=== PATIENT | female | born 1935 | race Caucasian/White ===

== ENCOUNTER 2024-05-01 08:45 | Outpatient (AMB) | payer OTHER, SELFPAY ==
--- NOTE | 2024-05-01 08:56 | MHC.OFFVIS ---
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 She is starting PT soon. She is having right groin pain when not using walker. She had pain last night and during the morning. Takes tylenol 650mg PRn pain. Dr. Arita Oracle Business Intelligence Developer started prednisone 5mg daily in December 2023. Xeljanz was very expansive for patient and she did not started. She has new insurance. PCP prescribed prednisone 20 mg for 7 days with last dose today to help alleviate hip pain. She has found that it is relieved all her pain. No new joint swelling. [facility] Medical History (Updated 05/01/24 @ 12:17 by Karlo Jay MD) Endometriosis Vitamin B 12 deficiency Restless leg syndrome Multiple pulmonary nodules Lymphopenia Hypertension Hyperlipidemia Surgical History (Updated 05/01/24 @ 09:33 by Abigail Brown CMA) History of bunionectomy Family History (Updated 05/01/24 @ 09:34 by Abigail Brown CMA) Mother Heart disease Other Pancreatic cancer Physical Exam Vital Signs: Last Vital Signs Pulse 79 05/01/24 09:06 BP 160/76 H 05/01/24 09:20 Pulse Ox 94 05/01/24 09:06 Oxygen Delivery Method Room Air 05/01/24 09:06 BMI result Body Mass Index 29.4 Const Other: General: Comfortable CVS: RRR Respiratory: clear to auscultation bilaterally. Good respiratory effort Skin: No lesions seen MSK: No tenderness of any joints. [place]berden nodes present. Good range of motion of upper extremities. Tender to palpate right groin region. Good external rotation of bilateral hips. Knee flexion 110 degrees bilateral. No MTP tenderness. Assessment & Plan Assessment & Plan (1) Rheumatoid arthritis: Comment: Seropositive (anti CCP antibody 223 and rheumatoid factor 95) polyarthritis involving hands, shoulders and knees. History of CKD. She is controlled on prednisone 5 mg daily and hydroxychloroquine 200 mg daily. She requires steroid sparing agent. We discussed adding on DMARD therapy Xeljanz 5 mg daily. Discussed side effects, benefits and drug monitoring. It was previously approved where she had a high co-pay. She now has a new insurance. I will process Xeljanz prescription after lab results are back. If she continues to have a high co-pay with new insurance, she can apply for financial assistance program for Xeljanz. Triggered by COVID-19 infection 09/2021. She was previously treated with double therapy HCQ and MTX. 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 She previously required bilateral knee cortisone injections and left wrist cortisone injection (12/22/2021). Prednisone 5 mg daily started ATC 12/2023 Dr. Arita. Code(s): M06.9 - Rheumatoid arthritis, unspecified Category: Medical Plan: She will decrease prednisone to 5 mg daily for 1 week starting tomorrow then decrease to 2.5 mg daily for 1 week then discontinue Labs for drug monitoring on high-risk medication ordered Continue hydroxychloroquine 200 mg daily. I am requesting last eye exam for hydroxychloroquine surveillance exam Requesting [facility] reports [facility] and bilateral knees After lab results are back, I will start PA process for Xeljanz 5 mg daily history of CKD Return to clinic in 3 months (2) Other staff occupational therapist (current) drug therapy: Code(s): Z79.899 - Other staff occupational therapist (current) drug therapy Category: Medical Plan: See above (3) Right hip pain: Comment: She has localized pain to right groin region suggesting hip pathology. She had an x-ray recently of right hip but I do not have results. We discussed conservative management. Code(s): M25.551 - Pain in right hip Category: Medical Plan: Take Tylenol 650 mg 1-2 tablets twice a day Apply heat or ice to affected area twice a day She will start physical therapy for hip strengthening soon She will continue to use walker as an assistive aid when ambulating Requesting right hip x-ray report from [facility] Return to clinic in 3 months Orders: Orders Complete Blood Count Auto Diff Today Z79.60 - skilled nursing (current) use of unspecified immunomodulators and immunosuppressants Creatinine Today Z79.60 - screw driver operator (current) use of unspecified immunomodulators and immunosuppressants Hepatitis B,C Profile Today M06.9 - Rheumatoid arthritis, unspecified, Z79.899 - Other staff occupational therapist (current) drug therapy Alanine Aminotransferase Today Z79.60 - screw driver operator (current) use of unspecified immunomodulators and immunosuppressants Aspartate Amino Transferase Today Z79.60 - screw driver operator (current) use of unspecified immunomodulators and immunosuppressants Erythrocyte Sedimentation Rate Today M06.9 - Rheumatoid arthritis, unspecified, Z79.899 - Other detention (current) drug therapy C Reactive Protein Today M06.9 - Rheumatoid arthritis, unspecified, Z79.899 - Other staff occupational therapist (current) drug therapy T Spot TB Today M06.9 - Rheumatoid arthritis, unspecified, Z79.899 - Other detention (current) drug therapy Lipid Panel Today M06.9 - Rheumatoid arthritis, unspecified Coding Level of Care Code Est Pt Level 4 (32856) Complex EM visit Add On G2211 Diagnoses Rheumatoid arthritis M06.9 Other detention (current) drug therapy Z79.899 Right hip pain M25.551
[2024-05-01 09:06] VITALS: PULSE 79; O2SAT 94; BMI 29.4
--- OUTSIDE RECORDS SUMMARY | 2024-05-01 09:13 | XMS_ITS ---
Author Organization [employer] Address [address] [place] [address] Care Team Providers Care Bookbinder Chief Name Role Phone Hernandez CERVANTES, Bellamy Primary Care Provider [phone] Allergies Allergen (clinical drug ingredient) Drug/Non Drug Allergy documented on EMR Reaction Allergy Type Onset Date Status Latex Latex Unknown Allergy 03/02/2022 Active Substance with sulfonamide structure and antibacterial mechanism of action (substance) Sulfa Antibiotics Unknown Drug Allergy Active Results Component Value Reference Range Notes Comprehensive Metabolic Pane l 14 (CMP) Reviewed date:04/28/2024 01:46:25 PM Interpretation: Performing Lab:[facility], [address] [place] [id number], Phone - [phone], Director - Shalom Notes/Report: Glucose 67 70-99 [...] 0-40 IU/L ALT (SGPT) 24 0-32 IU/L Lipid Panel With Total Rayne sterol/HDL Ratio Reviewed date:04/28/2024 01:46:25 PM Interpretation: Performing Lab:[facility], [address] [place] [address] [id number], Phone - [phone], Director - Shalom Notes/Report: Cholesterol, Total 125 100-199 mg/dL Triglycerides 92 0-149 mg/dL HDL Cholesterol 52 >39 mg/dL VLDL Cholesterol Ayo 17 5-40 mg/dL LDL Chol Calc ([facility]) 56 0-99 mg/dL T. Chol/HDL Ratio 2.4 0.0-4.4 ratio Men Women 2X Avg.Risk 9.6 7.1 Avg.Risk 5.0 4.4 3X Avg.Risk 23.4 11.0 T. Chol/HDL Ratio 1/2 Avg.Risk 3.4 3.3 Complete Blood Count with Di fferential/Platelet (CBC) Reviewed date:04/28/2024 01:46:24 PM Interpretation: Performing Lab:[facility], [address] [place] [id number], Phone - [phone], Director - MDNoey Notes/Report: WBC 6.9 3.4-10.8 x10E3/uL RBC 3.67 [...] % Immature Grans (Abs) 0.0 0.0-0.1 x10E3/uL REASON FOR VISIT 4 wk f/u, This [...] tablets p o daily for 90 days /2 tab qd Active Olmesartan Medoxomil 20 MG 0.5 tablet Or ally once daily for 90 days /2 tablet 07/16/2022 Active Tylenol PRN Active Ipratropium-Albuterol 0.5-2.5 (3) MG/3ML 3 mL as needed Inhalation every 6 hrs Active Vasculera - as directed Orally 630mg once daily Active Vitamin D (Ergocalciferol) 1.25 MG (21839 UT) 1 capsule Orally weekly for 90 [...] Active Encounters Encounter Location Date Provider Diagnosis [facility] [address] [place], [place] [id number] 04/05/2024 Paulo Ng Chronic obstructive pulmonary disease, unspecified J44.9 ; Essential (primary) hypertension I10 ; Rheumatoid arthritis, unspecified M06.9 ; 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-[id number]- Continue to follow with Plant Control Operator. 02/27 weaning down on predisone right now doing 04/05/2024 Essential (primary) hypertension (ICD-10 - I10) [facility]-[id number]- Continue medications and home monitoring as directed. [...] factor present (ICD-10 - M06.9) 04/05/2024 Other assisted (current) drug therapy (ICD-10 - Z79.899) Plan Of Treatment Treatment Notes Assessment Notes Chronic obstructive pulmonar y disease, unspecified Continue to follow with Plant Control Operator. 02/27 weaning down on predisone right now [...] Next Appt Details Follow Up: prn, Reason: Provider Name:Paulo Ng , 06/22/2024 02:40:00 PM, [address] [facility] [address], [place], [place], [phone], Progress Notes * Gilda CHAN ADOB:1935 (88 yo F)Acc No.[id number]:04/05/2024 Patient:?Gilda CHAN Provider:?Paulo Ng MD :1935???Age:88 Y???Sex:Female D ate:04/05/2024 Address:[address] [place], [place] [id number] Subjective: * Chief Complaints: * ???4 wk f/uThis is a [facility]Tele[facility]icine visit conducted using synchronous audio . The patient's verbal consent was obtained for this visit. Participants & Location: Patient located at home and Provider located in clinic. * HPI: ???General:?The patient is a 88-year-old female who is here today to follow-up on her chronic medical issues. She reports she is doing okay today. She is otherwise without new concerns. The appointment was performed via telephonic audio only communication consent was obtained from the patient she was in her home I was in my office.? 13 minutes. * ROS:?Complete Review of Systems:?Constitutional:?Denies fever, chills, fatigue, unintentional weight loss.?Cardiovascular:?Denies chest pain, palpitations, lower extremity edema.?Pulmonary:?Denies shortness of breath, cough.?Gastrointestinal:?Denies abdominal pain, nausea, vomiting, diarrhea, constipation.? * Medical History:? * Surgical History:?Colonoscop y In 01/26/2012 * Hospitalization/Major Diagno stic Procedure:?Cough, COPD and pneumonia 05/2022Multifocal pneumonia 2023 * Family History:?Mother: Prim venu malignant neoplasm of pancreas .? * Medications:?TakingAlbuterol Sulfate (2.5 MG/3ML) 0.083% Nebulization Solution 3 [...] 630mg once dailyVitamin D (Ergocalciferol) 1.25 MG (55045 UT) Capsule 1 capsule Orally weekly Taking [...] Orally once daily , Notes to Pharmacist: 1/2 tabletTaking predniSONE 5 MG Tablet 1 tablet [...] once dailyTaking Vitamin D (Ergocalciferol) 1.25 MG (11116 UT) Capsule 1 capsule Orally weekly Not-TakingpredniSONE 10 MG (21) Tablet Therapy Pack 1 tablet Orally Once a day Medication List reviewed and reconciled with the patientNot-Taking predniSONE 10 MG (21) Tablet Therapy Pack 1 tablet Orally Once a day Medication List reviewed and reconciled with the patient * Allergies:?Latex: Allergy - Onset Date 03/02/2022ulfa Antibiotics: Allergyyes[Allergies Verified] * Implants:? Objective: * Vitals:? Past Vitals:* 02/28/2024 BP:138/72mm Hg, RR: Not Take n - Declined by Patient, Pulse:67/min, Ht:60in, Wt: Not Taken - Declined by Patient, Oxygen Sat:93%, Pain Scale:01-10 * 01/24/2024 BP:138/62mm Hg, RR: Not Take n - Declined by Patient, Pulse:72/min, Temp: Not Taken - Declined by Patient, Ht:60in, Wt: Not Taken - Declined by Patient, Oxygen Sat:93%, Pain Scale:71-10 * 01/09/2024 BP:126/67mm Hg, RR: Not Take n - Declined by Patient, Pulse:77/min, Temp: Not Taken - Declined by Patient, Ht:60in, Wt: Not Taken - Declined by Patient, Oxygen Sat: Not Taken - Declined by Patient, Pain Scale:01-10 * 11/23/2023 BP:138/65mm Hg, RR:16/min, P ulse:62/min, [...] - Declined by Patient, Pain Scale:01-10 * ???Past Orders: ???Lab:Comprehensive Metabol ic Panel 14 (CMP) (Order Date - 01/19/2023) (Collection Date & Time - 09/29/2023 08:06 AM) ? Value Reference Range ?Bilirubin, Total 0.2 0.0 -1.2 - mg/dL ?Glucose 80 70-99 - mg/d L ?ALT (SGPT) 22 0-32 - IU /L ?Alkaline Phosphatase 61 44-121 - IU/L ?Globulin, Total 2.3 1.5- 4.5 - g/dL ?Albumin 3.9 3.7-4.7 - g/ dL ?Protein, Total 6.2 6.0-8 .5 - g/dL ?Carbon Dioxide, Total 24 20-29 - mmol/L ?Chloride 103 96-106 - mm ol/L ?Potassium 4.3 3.5-5.2 - mmol/L ?Sodium 140 134-144 - mmo l/L ?BUN/Creatinine Ratio 21 12-28 - ?Creatinine 1.04 H 0.57-1.00 - mg/dL ?Calcium 9.5 8.7-10.3 - m g/dL ?BUN 22 8-27 - mg/dL ?AST (SGOT) 19 0-40 - IU /L ?eGFR 52 L >59 - mL/min/1. 73 * Examination: ???General Examination: ?Psych:?does not appear depressed,? normal affect..? Assessment: * Assessment: 1.?Chronic obstructive pulmo nary disease, unspecified - J44.9 (Primary)???Notes :[facility]-[id number]???2.?Essential (primary) hypertension - I10???Notes :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 Plan: * Treatment: 2.?Essential (primary) hyper tension? Notes: Continue medications and home monitoring as directed. Continue low sodium diet with goal of <2g per day. Avoid stress. Avoid adding salt to food. Enjoy regular exercise like walking at least 30 minutes a day, five days a week. ?? 3.?Rheumatoid arthritis, uns pecified? Notes: Rheum discontinued methotrexate due to increasing Cr. Seeing rheum in 2 days to discuss other treatment options. ?? 4.?Immunodeficiency due to c onditions classified elsewhere? Notes: Due to COPD.?? 5.?Other assisted (current) drug therapy?LAB: Complete Blood Count with Differential/Platelet (CBC) ?LAB: Lipid Panel With Total Cholesterol/HDL Ratio ?LAB: Comprehensive Metabolic Panel 14 (CMP) * Procedure Codes:?1159F Medic ation list [id number] Medication Review * Preventive Medicine:? ??Handouts :?Patient Handouts:?THE FOLLOWING HANDOUTS WERE PROVIDED:?Visit summary ?THE ABOVE HANDOUTS WERE PROVIDED BY:?Farzad Gaona 04/05/2024 08:29:28 AM EST >.?HANDOUTS REVIEWED WITH:?patient.?METHOD USED TO DEMONSTRATE UNDERSTANDING: ?verbalized understanding.?UNDERSTANDING OF HANDOUT WAS DEMONSTRATED?Farzad Gaona 04/05/2024 08:29:33 AM EST >.? * Follow Up:?prn * * OR OF OSTEOPATHY Sign off status: Completed true * Provider:?Paulo Ng MD Date:?04/05 Generated for Phani elkins/Marcus/eTransmitting on:?05/01/2024 08:12 AM DOCTOR OF OSTEOPATHY History and Physical Notes * Examination Category Sub-Category Detail Notes General Examination Psych: does not dawson ear depressed, normal affect.
--- OUTSIDE RECORDS SUMMARY | 2024-05-01 09:14 | XMS_ITS | Data Portability ---
Author Organization [place] [facility] [employer], OFFICE Address [id number] [place] [address] Care Team Providers Care Application Spec Name Role Phone RAJIV RED Primary Care Provider [phone] Assessment No assessment recorded. Plan of Treatment Reminders Order Date Submit Date Provider Last Modified By Organization Details Last Modified Time Details Appointments None recorded . Lab hemoglob in A1C, fingerst ick 2022 023 JONNATHAN In-House Results, For Internal Use Only, Do Not Delete/merge, [id number] 3 12:20:33 CMP, serum or plasma 2021 022 [email or web address] [facility], [address] [facility], [address], [place], [address], 2 15:02:05 CBC w/ auto diff 2021 022 [email or web address], [address] [facility], [address], [place], [address], 2 15:02:05 lipid panel, serum 2021 022 [email or web address], [address] [facility], [address], [place], [address], 2 15:02:05 Referral pulmonol ogist referral 2022 023 debra Not available 13:09:23 Procedures None recorded . Surgeries None recorded . Imaging XR, knee, 3 view 2021 022 [email or web address], [address], [place], [address], 3 07:19:05 XR, knee, 3 view 2021 022 [email or web address] [facility], [address], [place], [address], 3 07:19:05 Medication Orders cyanocob alamin (vit B-12) 1,000 mcg/mL injectio n solution 2022 023 Not available 3 12:46:56 famotidi ne 20 mg tablet 2022 023 [facility], [address] [place], [address], 3 14:02:57 cyanocob alamin (vit B-12) 1,000 mcg/mL injectio n solution 2022 023 [email or web address] Not available 3 16:51:19 cyanocob alamin (vit B-12) 1,000 mcg/mL injectio n solution 2022 023 Not available 15:02:14 Patient TargetsNo targets recorded. Patient Instructions Encounter Date Encounter Id Patient Instructions Last Modified By Organization Details Last Modified Time 03/02/2022 [id number] 30 min total veronica e of encounter including face to face and non face to face time spent: Preparing to see patient Obtaining and reviewing separately obtained history Performing medically appropriate examination or evaluation Counseling and educating patient/family/car egiver Ordering medications, tests, or procedures Referring and communication with other health career services assistant Documenting clinical information in the medical record Independently interpreting and communicating results to patient/caregiver Care coordination Discussed treatment plan with patient. The patient verbalized understanding and agrees with plan and follow up. There are no other questions and concerns at this time. f/u scheduled vascular surgeon consult [id number] vascular surgery varicose veins conservative treatment [email or web address] Not available 03/02/2022 08:25:02 05/27/2022 [id number] 30 min total veronica e of encounter including face to face and non face to face time spent: Preparing to see patient Obtaining and reviewing separately obtained history Performing medically appropriate examination or evaluation Counseling and educating patient/family/car egiver Ordering medications, tests, or procedures Referring and communication with other health career services assistant Documenting clinical information in the medical record Independently interpreting and communicating results to patient/caregiver Care coordination Discussed treatment plan with patient. The patient verbalized understanding and agrees with plan and follow up. There are no other questions and concerns at this time. f/u scheduled Discussed all CBC w/ auto diff [id number] 6.2 11.3 WBC 6.2 RBC 4.03 hemoglobin 11.3 hematocrit 33.8 below low normal MCV 84 MCH 28.0 MCHC 33.4 RDW 13.5 platelets 321 neutrophils 48 lymphs 39 monocytes 11 eos 1 basos 1 immature cells switchman supervisor neutrophils (absolute) 3.0 lymphs (absolute) 2.4 monocytes(absolute ) 0.7 eos (absolute) 0.1 baso (absolute) 0.0 immature granulocytes 0 immature grans (abs) 0.0 NRBC switchman supervisor hematology comments: switchman supervisor lipid panel, serum [id number] 139 49 68 127 cholesterol, total 139 triglycerides 127 HDL cholesterol 49 VLDL cholesterol cristina 22 LDL chol calc (nih) 68 comment: switchman supervisor CMP, serum or plasma [id number] 71 1.13 glucose 71 BUN 23 creatinine 1.13 above high normal eGFR 47 below low normal BUN/creatinine ratio 20 sodium 139 potassium 4.6 chloride 102 carbon dioxide, total 26 calcium 9.3 protein, total 6.3 albumin 3.7 globulin, total 2.6 A/G ratio 1.4 bilirubin, total 0.2 alkaline phosphatase 47 AST (SGOT) 18 ALT (SGPT) 23 CMP, serum or plasma [id number] lisandro ann CMP14 default comment lipid panel, serum [id number] lisandro ann [address] default comment XR, knee, 3 [id number] IMPRESSION: 1.No acute osseous abnormality. 2.Moderate medial patellofemoral compartment osteoarthritis If there are persistent symptoms, consider additional imaging such as knee MRI to assess for internal derangement. 03/05/2022 Re-post to PACS Electronically Signed By: Wilfrid Robertson MD XR, knee, 3 [id number] XR, knee, 3 [id number] No acute osseous abnormality. Moderate medial patellofemoral compartment osteoarthritis. XR, knee, 3 view Not available 05/27/2022 15:00:17 06/10/2022 [id number] mini-cog assessment* [email or web address] Not available 06/25/2022 15:25:02 low calorie diet Not available 06/10/2022 14:02:51 low sodium diet (2,000 milligram): care instructions Not available 06/10/2022 14:02:51 30 min total veronica e of encounter including face to face and non face to face time spent: Preparing to see patient Obtaining and reviewing separately obtained history Performing medically appropriate examination or evaluation Counseling and educating patient/family/car egiver Ordering medications, tests, or procedures Referring and communication with other health career services assistant Documenting clinical information in the medical record Independently interpreting and communicating results to patient/caregiver Care coordination Discussed treatment plan with patient. The patient verbalized understanding and agrees with plan and follow up. There are no other questions and concerns at this time. f/u scheduled [address] [facility] [place], [place] [id number] Rosalva Aguila D.O. [address] [facility] Company[facility] Valencia, [address] [place] [address] [id number] COPD with acute exacerbation (HCC) (Primary Dx); Acute hypoxemic respiratory failure (HCC); Atypical pneumonia; Essential hypertension; Community acquired bacterial pneumonia; CHRISTIAN (acute kidney injury) (HCC); Pneumonia of both lungs due to infectious organism, unspecified part of lung Discussed all CBC w/ auto diff [id number] 6.2 11.3 WBC 6.2 RBC 4.03 hemoglobin 11.3 hematocrit 33.8 below low normal MCV 84 MCH 28.0 MCHC 33.4 RDW 13.5 platelets 321 neutrophils 48 lymphs 39 monocytes 11 eos 1 basos 1 immature cells switchman supervisor neutrophils (absolute) 3.0 lymphs (absolute) 2.4 monocytes(absolute ) 0.7 eos (absolute) 0.1 baso (absolute) 0.0 immature granulocytes 0 immature grans (abs) 0.0 NRBC switchman supervisor hematology comments: switchman supervisor lipid panel, serum [id number] 139 49 68 127 cholesterol, total 139 triglycerides 127 HDL cholesterol 49 VLDL cholesterol cristina 22 LDL chol calc (nih) 68 comment: switchman supervisor CMP, serum or plasma [id number] 71 1.13 glucose 71 BUN 23 creatinine 1.13 above high normal eGFR 47 below low normal BUN/creatinine ratio 20 sodium 139 potassium 4.6 chloride 102 carbon dioxide, total 26 calcium 9.3 protein, total 6.3 albumin 3.7 globulin, total 2.6 A/G ratio 1.4 bilirubin, total 0.2 alkaline phosphatase 47 AST (SGOT) 18 ALT (SGPT) 23 CMP, serum or plasma [id number] ambig abbrev CMP14 default comment lipid panel, serum [id number] ambig abbrev LP default comment XR, knee, 3 [id number] IMPRESSION: 1.No acute osseous abnormality. 2.Moderate medial patellofemoral compartment osteoarthritis If there are persistent symptoms, consider additional imaging such as knee MRI to assess for internal derangement. 03/05/2022 Re-post to PACS Electronically Signed By: Wilfrid Robertson MD XR, knee, 3 [id number] XR, knee, 3 [id number] No acute osseous abnormality. Moderate medial patellofemoral compartment osteoarthritis. XR, knee, 3 view Not available 06/10/2022 13:53:59 06/25/2022 [id number] 30 min total veronica e of encounter including face to face and non face to face time spent: Preparing to see patient Obtaining and reviewing separately obtained history Performing medically appropriate examination or evaluation Counseling and educating patient/family/car egiver Ordering medications, tests, or procedures Referring and communication with other health career services assistant Documenting clinical information in the medical record Independently interpreting and communicating results to patient/caregiver Care coordination Discussed treatment plan with patient. The patient verbalized understanding and agrees with plan and follow up. There are no other questions and concerns at this time. f/u scheduled [address] [facility] [place] [address] Rosalva Aguila D.O. 89[address] [facility], [address] [place] [id number] COPD with acute exacerbation (HCC) (Primary Dx); Acute hypoxemic respiratory failure (HCC); Atypical pneumonia; Essential hypertension; Community acquired bacterial pneumonia; CHRISTIAN (acute kidney injury) (HCC); Pneumonia of both lungs due to infectious organism, unspecified part of lung Discussed all CBC w/ auto diff [id number] 6.2 11.3 WBC 6.2 RBC 4.03 hemoglobin 11.3 hematocrit 33.8 below low normal MCV 84 MCH 28.0 MCHC 33.4 RDW 13.5 platelets 321 neutrophils 48 lymphs 39 monocytes 11 eos 1 basos 1 immature cells switchman supervisor neutrophils (absolute) 3.0 lymphs (absolute) 2.4 monocytes(absolute ) 0.7 eos (absolute) 0.1 baso (absolute) 0.0 immature granulocytes 0 immature grans (abs) 0.0 NRBC switchman supervisor hematology comments: switchman supervisor lipid panel, serum [id number] 139 49 68 127 cholesterol, total 139 triglycerides 127 HDL cholesterol 49 VLDL cholesterol cristina 22 LDL chol calc (nih) 68 comment: switchman supervisor CMP, serum or plasma [id number] 71 1.13 glucose 71 BUN 23 creatinine 1.13 above high normal eGFR 47 below low normal BUN/creatinine ratio 20 sodium 139 potassium 4.6 chloride 102 carbon dioxide, total 26 calcium 9.3 protein, total 6.3 albumin 3.7 globulin, total 2.6 A/G ratio 1.4 bilirubin, total 0.2 alkaline phosphatase 47 AST (SGOT) 18 ALT (SGPT) 23 CMP, serum or plasma [id number] lisandro ann CMP14 default comment lipid panel, serum [id number] default comment XR, knee, 3 [id number] IMPRESSION: 1.No acute osseous abnormality. 2.Moderate medial patellofemoral compartment osteoarthritis If there are persistent symptoms, consider additional imaging such as knee MRI to assess for internal derangement. 03/05/2022 Re-post to PACS Electronically Signed By: Wilfrid Robertson MD XR, knee, 3 [id number] XR, knee, 3 [id number] No acute osseous abnormality. Moderate medial patellofemoral compartment osteoarthritis. 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 Referral for M ultiple nodules of lung Referring Physician: Rajiv Red, Internal Medicine, Encounter Date: 05/27/2022 Results Created Date Observation Date Name Description Value Unit Range Abnormal Flag Note LastModifiedBy Organization Detail LastModifiedTime 05/21/1905/21/2022 CBC/D IFF AMBIG UOUS DEFAU LT WBC 6.2 x10e3 /uL 3.4-10 .8 Not Available [facility] ([facility]) [address] [place], [address], 05/21/2022 08:12:29 05/21/19 23 05/21/2022 CBC/D IFF AMBIG UOUS DEFAU LT RBC 4.03 x10e6 /uL 3.77-5 .28 Not Available [facility] ([facility]) [address] [place], [address], 05/21/2022 08:12:29 05/21/19 23 05/21/2022 CBC/D IFF AMBIG UOUS DEFAU LT hemoglobin 11.3 g/dL 11.1-1 5.9 Not Available [facility] ([facility]) [address] [place], [address], 05/21/2022 08:12:29 05/21/19 23 05/21/2022 CBC/D IFF AMBIG UOUS DEFAU LT hematocrit 33.8 % 34.0-4 6.6 below low normal Not Available [facility] ([facility]) [address] [place], [address], 05/21/2022 08:12:29 05/21/19 23 05/21/2022 CBC/D IFF AMBIG UOUS DEFAU LT MCV 84 fL 79-97 Not Available [facility] ([facility]) [address] [place], [address], 05/21/2022 08:12:29 05/21/19 23 05/21/2022 CBC/D IFF AMBIG UOUS DEFAU LT MCH 28.0 pg 26.6-3 3.0 Not Available [facility] ([facility]) [address] [facility], [place], [address], 05/21/2022 08:12:29 05/21/19 23 05/21/2022 CBC/D IFF AMBIG UOUS DEFAU LT MCHC 33.4 g/dL 31.5-3 5.7 Not Available [facility] ([facility]) [address] [facility], [place], [address], 05/21/2022 08:12:29 05/21/19 23 05/21/2022 CBC/D IFF AMBIG UOUS DEFAU LT RDW 13.5 % 11.7-1 5.4 Not Available [facility] ([facility]) [address] [facility], [place], [address], 05/21/2022 08:12:29 05/21/19 23 05/21/2022 CBC/D IFF AMBIG UOUS DEFAU LT platelets 321 x10e3 /uL 150-45 0 Not Available [facility] ([facility]) [address] [facility], [place], [address], 05/21/2022 08:12:29 05/21/19 23 05/21/2022 CBC/D IFF AMBIG UOUS DEFAU LT neutrophils 48 % not estab. Not Available [facility] ([facility]) [address] [facility], [place], [address], 05/21/2022 08:12:29 05/21/19 23 05/21/2022 CBC/D IFF AMBIG UOUS DEFAU LT lymphs 39 % not estab. Not Available [facility] ([facility]) [address] [facility], [place], [address], 05/21/2022 08:12:29 05/21/19 23 05/21/2022 CBC/D IFF AMBIG UOUS DEFAU LT monocytes 11 % not estab. Not Available [facility] ([facility]) [address] [facility], [place], [address], 05/21/2022 08:12:29 05/21/19 23 05/21/2022 CBC/D IFF AMBIG UOUS DEFAU LT eos 1 % not estab. Not Available [facility] ([facility]) [address] [facility], [place], [address], 05/21/2022 08:12:29 05/21/19 23 05/21/2022 CBC/D IFF AMBIG UOUS DEFAU LT basos 1 % not estab. Not Available [facility] ([facility]) [address] [facility], [place], [address], 05/21/2022 08:12:29 05/21/19 23 05/21/2022 CBC/D IFF AMBIG UOUS DEFAU LT immature cells INTAKE WORKER Not Available [facility] ([facility]) [address] [place], [address], 05/21/2022 08:12:29 05/21/19 23 05/21/2022 CBC/D IFF AMBIG UOUS DEFAU LT neutrophils (absolute) 3.0 x10e3 /uL 1.4-7. 0 Not Available [facility] ([facility]) [address] [place], [address], 05/21/2022 08:12:29 05/21/19 23 05/21/2022 CBC/D IFF AMBIG UOUS DEFAU LT lymphs (absolute) 2.4 x10e3 /uL 0.7-3. 1 Not Available [facility] ([facility]) [address] [place], [address], 05/21/2022 08:12:29 05/21/19 23 05/21/2022 CBC/D IFF AMBIG UOUS DEFAU LT monocytes(ab solute) 0.7 x10e3 /uL 0.1-0. 9 Not Available [facility] ([facility]) [address] [facility], [place], [address], 05/21/2022 08:12:29 05/21/19 23 05/21/2022 CBC/D IFF AMBIG UOUS DEFAU LT eos (absolute) 0.1 x10e3 /uL 0.0-0. 4 Not Available [facility] ([facility]) [address] [facility], [place], [address], 05/21/2022 08:12:29 05/21/1905/21/2022 CBC/D IFF AMBIG UOUS DEFAU LT baso (absolute) 0.0 x10e3 /uL 0.0-0. 2 Not Available [facility] ([facility]) [address] [facility], [place], [address], 05/21/2022 08:12:29 05/21/1905/21/2022 CBC/D IFF AMBIG UOUS DEFAU LT immature granulocytes 0 % not estab. Not Available [facility] ([facility]) [address] [facility], [place], [address], 05/21/2022 08:12:29 05/21/19 23 05/21/2022 CBC/D IFF AMBIG UOUS DEFAU LT immature grans (abs) 0.0 x10e3 /uL 0.0-0. 1 Not Available [facility] ([facility]) [address] [facility], [place], [address], 05/21/2022 08:12:29 05/21/1905/21/2022 CBC/D IFF AMBIG UOUS DEFAU LT NRBC INTAKE WORKER Not Available [facility] ([facility]) [address] [facility], [place], [address], 05/21/2022 08:12:29 05/21/19 23 05/21/2022 CBC/D IFF LISANDRO MENDEZ DEFAU LT hematology comments: INTAKE WORKER A hand- writt en panel /prof mckenzie was recei laury from your offic e. In accor dance with the [facility] Lisandro mendez Test Code Polic y dated September 2002, we have assig momo CBC with Diffe renti al/Pl atele t, Test Code #[address] If this is not the testi ng you wishe d to recei ve on this speci men, pleas e conta ct the [facility] Clien t Inqui ry/ Techn ical Servi devante Depar tment to rios fy the test order . We appre ciate your busin ess. Not Available [facility] ([facility]) [address] [place], [address], 05/21/2022 08:12:29 05/21/19 23 05/21/2022 COMP. METAB OLIC PANEL (14) glucose 71 mg/dL 70-99 Not Available [facility] ([facility]) [address] [place], [address], 05/21/2022 08:12:29 05/21/19 23 05/21/2022 COMP. METAB OLIC PANEL (14) BUN 23 mg/dL 8-27 Not Available [facility] ([facility]) [address] [place], [address], 05/21/2022 08:12:29 05/21/19 23 05/21/2022 COMP. METAB OLIC PANEL (14) creatinine 1.13 mg/dL 0.57-1 .00 above high normal Not Available [facility] ([facility]) [address] [place], [address], 05/21/2022 08:12:29 05/21/19 23 05/21/2022 COMP. METAB OLIC PANEL (14) eGFR 47 mL/mi n/1.7 3 >59 below low normal Not Available [facility] ([facility]) [address] [facility], [place], [address], 05/21/2022 08:12:29 05/21/1905/21/2022 COMP. METAB OLIC PANEL (14) BUN/creatini ne ratio 02 03- Not Available [facility] ([facility]) [address] [facility], [place], [address], 05/21/2022 08:12:29 05/21/19 23 05/21/2022 COMP. METAB OLIC PANEL (14) sodium 139 mmol/ L 134-14 4 Not Available [facility] ([facility]) [address] [facility] [place], [address], 05/21/2022 08:12:29 05/21/19 23 05/21/2022 COMP. METAB OLIC PANEL (14) potassium 4.6 mmol/ L 3.5-5. 2 Not Available [facility] ([facility]) [address] [facility], [place], [address], 05/21/2022 08:12:29 05/21/19 23 05/21/2022 COMP. METAB OLIC PANEL (14) chloride 102 mmol/ L 96-106 Not Available [facility] ([facility]) [address] [facility], [place], [address], 05/21/2022 08:12:29 05/21/19 23 05/21/2022 COMP. METAB OLIC PANEL (14) carbon dioxide, total 26 mmol/ L - Not Available [facility] ([facility]) [address] [facility], [place], [address], 05/21/2022 08:12:29 05/21/19 23 05/21/2022 COMP. METAB OLIC PANEL (14) calcium 9.3 mg/dL 8.7-10 .3 Not Available [facility] ([facility]) [address] [facility], [place], [address], 05/21/2022 08:12:29 05/21/19 23 05/21/2022 COMP. METAB OLIC PANEL (14) protein, total 6.3 g/dL 6.0-8. 5 Not Available [facility] ([facility]) [address] [place], [address], 05/21/2022 08:12:29 05/21/19 23 05/21/2022 COMP. METAB OLIC PANEL (14) albumin 3.7 g/dL 3.6-4. 6 Not Available [facility] ([facility]) [address] [place], [address], 05/21/2022 08:12:29 05/21/19 23 05/21/2022 COMP. METAB OLIC PANEL (14) globulin, total 2.6 g/dL 1.5-4. 5 Not Available [facility] ([facility]) [address] [facility] [place], [address], 05/21/2022 08:12:29 05/21/19 23 05/21/2022 COMP. METAB OLIC PANEL (14) A/G ratio 1.4 1.2-2. 2 Not Available [facility] ([facility]) [address] [facility] [place], [address], 05/21/2022 08:12:29 05/21/19 23 05/21/2022 COMP. METAB OLIC PANEL (14) bilirubin, total 0.2 mg/dL 0.0-1. 2 Not Available [facility] ([facility]) [address] [facility] [place], [address], 05/21/2022 08:12:29 05/21/19 23 05/21/2022 COMP. METAB OLIC PANEL (14) alkaline phosphatase 47 IU/L 44-121 Not Available [facility] ([facility]) [address] [facility], [place], [address], 05/21/2022 08:12:29 05/21/19 23 05/21/2022 COMP. METAB OLIC PANEL (14) AST (SGOT) 18 IU/L 0-40 Not Available [facility] ([facility]) [address] [facility] [place], [address], 05/21/2022 08:12:29 05/21/19 23 05/21/2022 COMP. METAB OLIC PANEL (14) ALT (SGPT) 23 IU/L 0-32 Not Available [facility] ([facility]) [address] [facility] [place], [address], 05/21/2022 08:12:29 05/21/19 23 05/21/2022 LIPID PANEL cholesterol, total 139 mg/dL 100-19 9 Not Available [facility] ([facility]) [address] [facility] [place], [address], 05/21/2022 08:12:30 05/21/19 23 05/21/2022 LIPID PANEL triglyceride s 127 mg/dL 0-149 Not Available [facility] ([facility]) [address] [facility] [place], [address], 05/21/2022 08:12:30 05/21/19 23 05/21/2022 LIPID PANEL HDL cholesterol 49 mg/dL >39 Not Available [facility] ([facility]) [address] [facility] [place], [address], 05/21/2022 08:12:30 05/21/19 23 05/21/2022 LIPID PANEL VLDL cholesterol cristina 22 mg/dL 5-40 Not Available [facility] ([facility]) [address] [facility] [place], [address], 05/21/2022 08:12:30 05/21/19 23 05/21/2022 LIPID PANEL LDL chol calc (nih) 68 mg/dL 0-99 Not Available [facility] ([facility]) [address] [facility] [place], [address], 05/21/2022 08:12:30 05/21/19 23 05/21/2022 LIPID PANEL comment: INTAKE WORKER Not Available [facility] ([facility]) [address] [facility], [place], [address], 05/21/2022 08:12:30 05/21/19 23 05/20/2022 AMBIG ABBRE V CMP14 DEFAU LT ambig abbrev CMP14 default COMMEN T A hand- writt en panel /prof ile was recei laury from your offic e. In accor dance with the [facility] Ambig uous Test Code Polic y dated September 2002, we have compl eted your order by using the close st curre ntly or forme rly recog nized AMA panel . We have paige barr Compr e[place] Metab olic Panel (14), Test Code #32[address]. If this is not the testi ng you wishe d to recei ve on this speci men, pleas e conta ct the [facility] Clien t Inqui ry/Te chnic al Servi devante Depar tment to rios fy the test order . We appre ciate your elderin ess. Not Available [facility] ([facility]) [address] [facility], [place], [address], 05/21/2022 08:12:31 05/21/19 23 05/20/2022 AMBIG ABBRE V LP DEFAU LT ambig abbrev LP default COMMEN T A hand- writt en panel /prof ile was recei laury from your offic e. In accor dance with the [facility] Ambig uous Test Code Polic y dated September 2002, we have compl eted your order by using the close st curre ntly or forme rly recog nized AMA panel . We have paige barr Lipid Panel , Test Code #3037 [address]. If this is not the testi ng you wishe d to recei ve on this speci men, pleas e conta ct the [facility] Clien t Inqui ry/Te chnic al Servi devante Depar tment to rios fy the test order . We appre ciate your busin ess. Not Available [facility] ([facility]) [address] [facility], [place], [address], 05/21/2022 08:12:31 06/12/1906/11/2022 hemog lobin A1C, shawn mesatic k A1C 5.3 Not Available In-House Results For Internal Use Only, Do Not Delete/merge, [id number] 06/10/2022 08:34:00 04/05/19 23 03/04/2022 XR, knee, 3 view EXAM: RADIOG RAPHS, LEFT KNEE, 3 VIEWS CLINIC AL INDICA TION: Knee pain. COMPAR RICH: None TECHNI QUE: Three views of the knee. FINDIN GS: There is normal bone minera l densit y. There is modera te medial , modera te to high-g rade patell ofemor al and mild latera l compar tment chondr omalac ia. There is mild spurri ng of the tibial spines No fractu re or disloc ation is identi fied. There is no joint effusi on. No abnorm al soft tissue calcif icatio n is identi fied. IMPRES SARAI: 1.No acute osseou s abnorm ality. 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 On 1 of the image there is subcho ndral lucenc y of the medial femora l condyl e, but this may be projec tional . If there are persis tent sympto ms, consid er additi onal imagin g such as knee MRI to assess for product managent intern al georgette duncan. 2021 Re-pos t to PACS Electr onical ly Signed By: Wilfrid Robertson MD [facility] [place] [id number] [place] [address] Christina, [place], [address], 05/27/2022 14:51:08 04/05/19 23 03/04/2022 XR, knee, 3 view EXAM: RADIOG RAPHS, RIGHT KNEE, 3 VIEWS CLINIC AL INDICA TION: Knee pain COMPAR RICH: None TECHNI QUE: Three views of the knee. FINDIN GS: There is normal bone minera l densit y. Modera te medial patell ofemor al compar tment narrow ing is noted. There is mild spurri ng of the tibial spines . No fractu re or disloc ation is identi fied. There is no joint effusi on. No abnorm al soft tissue calcif icatio n is identi fied. IMPRES SARAI: 1.No acute osseou s abnorm ality. 2.Mode rate medial patell ofemor al compar tment osteoa rthrit is If there are persis tent sympto ms, consid er additi onal imagin g such as knee MRI to assess for product managent intern al georgette hicksenio. 2021 Re-pos t to PACS Electr onical ly Signed By: Wilfrid Robertson MD [place] [id number] [facility] - [address], [place], [address], 05/27/2022 14:51:08 04/05/19 23 03/04/2022 XR, knee, 3 view No observ ation record ed. [place] [id number] [facility] - [address], [place], [address], 05/27/2022 14:51:08 04/05/19 23 03/04/2022 XR, knee, 3 view No observ ation record ed. [address] [facility] [address], [place], [address], 05/27/2022 14:51:08 Result Notes None recorded. Problems Name Problem SNOMED Code Status Onset Date Resolution Date Notes Provider Name and Address Organization Details Recorded Time Long-ter m drug therapy Completed 201604/09/2021 LIAM CARBALLO [address], [place], [address], [facility], [facility] 2 17:00:00 Body mass index 25-29 - overweig 261225657 Completed 201607/07/2017 LIAM CARBALLO [address], [place], [address], [facility], [facility] 2 16:59:26 Elevated blood-pr essure reading without diagnosi s of hyperten sarai 861134219 Completed 201602/26/2018 Removal Reason: has HTN JCARLOS quintanilla, [facility], [facility] 8 08:35:57 [facility] hyperten sarai 17623967 Active 2016 DONNA CROSS [facility], [facility], [facility] 9 15:35:52 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, [facility] 9 10:11:11 Acute bronchit is 49024705 Completed 01/22/2016 RICHARD BONNY [facility], [facility] 6 15:09:56 Asthma 371771144 Active DONNABARBARA CROSS [facility] 9 15:35:52 Disorder of bone and articula r cartilag e 107092114 Completed 01/06/2020 Removal Reason: dup dx JCARLOS quintanilla, [facility] 0 08:33:44 Orthosta tic hypotens ion 99853535 Completed 201701/06/2020 Removal Reason: resolved [facility] 0 08:34:53 Dizzines s 158860123 Completed 201701/06/2020 s/p stiolto? ? Removal Reason: [facility] 0 08:33:24 Vitamin D deficien cy 79871791 Active 29.0 01/30/18 [facility] 9 15:35:52 Body mass index 30+ - obesity 356521866 Active 2017 DONNA CROSS [facility] 9 15:35:52 Vertigo 087391205 Active 2017 DONNA CROSS [facility] 9 15:35:52 Syncope 157539321 Active 2017 Stress test 01/26/18 neg -- ECHO 01/23/18 EF 60% w/ trace valvular issues DONNABARBARA CROSS [facility] 9 15:35:52 Pulmonar y hyperten sarai 53886325 Active 2017 mild echo 01/23/18 w/ trace TR and history of COPD DONNABARBARA CROSS [facility] 9 15:35:52 Supraven tricular tachycar jad 4977603 Active 2018 DONNABARBARA CROSS [facility] 9 15:35:52 Leukopen ia 66378318 Completed 201801/06/2020 new onset 06/26/18 at 4.1 Removal Reason: [facility] 0 08:33:34 Serum creatini ne above referenc e range 536692911 Completed 201801/06/2020 New onset serum creatini ne raised. CMP 03/05/19 with creatini ne 1.09 and GFR 47. Avoid nephroto xins. Push fluids. Repeat CMP. Removal Reason: ckd 3 [facility] 0 08:34:46 Chronic kidney disease stage 3 296678592 Active 2019 [facility] 0 07:25:19 Cyst of kidney 479319855 Active 2019 Recent new onset. Patient had ultrasou nd of the kidneys 05/23/19f or further workup of CKD stage III. Ultrasou nd revealed an exophyti c cyst in the upper pole of left kidney measurin g up to 7.1 cm. She was referred to Dr. Fab Feliz (urologi ) for further assessme nt. Consult 06/20/19 reviewed . Cyst was discusse d. There was no associat ed obstruct ion. Dr. Feliz did not feel this cyst was causing any signific ant impact on her renal function . It was recommen ded she has repeat US in 6 months for comparis on. We will follow along. [facility], [facility] 0 08:23:45 Steatosi s of liver 189788758 Active 2020 [facility] 1 11:06:45 Computed tomograp hy result abnormal 332431287 Completed 202004/09/2021 LIAM CARBALLO [address] [place] [address] [address], [place], [address], [facility] 2 16:59:35 Body mass index 25-29 - overweig ht 284706388 Completed 202004/09/2021 LIAM CARBALLO [address] [place] [address] [address], [place], [address], [facility] 2 16:59:26 COVID-19 096842230 Active 2020 [facility], [facility] 1 11:04:15 Dyspnea 693377721 Active 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 Just above goal of less than 100. Has no history of CVA, TIA, CAD, PVD or DM. Cannot calculat e CV risk per AHA calculat ion due to age. Hold off on statin. Work on diet adn exercise . JCARLOS WILL quintanilla, [facility] 9 09:43:53 Knee pain Completed 04/09/2021 LIAM CARBALLO [address], [place], [address], [facility] 2 17:00:08 Tobacco dependen ce syndrome 00934367 Completed 04/09/2021 LIAM CARBALLO [address], [place], [address], [facility] 2 17:00:18 Osteopen ia 258847496 Active [facility] 9 15:35:52 Lighthea dedness 072833623 Completed 03/26/2016 Asha Self [facility] 7 09:38:57 Pneumoni a 028826306 Completed 03/26/2016 Asha Slef [facility] 7 09:38:45 Foot pain 81075741 Completed 04/09/2021 LIAM CARBALLO [address], [place], [address], [facility] [place] [facility] 2 16:59:47 Multiple nodules of lung 647920201 Active [address] rodriguez -- stable CT chest via pulm consult 01/25/17 and consult 01/20/18 DONNA quintanilla, [facility], [facility] 15:35:52 Body mass index 25-29 - overweig ht 325489985 Completed 201503/26/2016 LIAM CARBALLO [address], [place], [address], [facility], [facility] 2 16:59:26 Disorder of vitamin B12 265683895 Active 2015 DONNA quintanilla [facility], [facility] 9 15:35:52 Body mass index 30+ - obesity 015257586 Completed 201602/11/2017 DONNABARBARA [facility]NY [facility], [facility] 8 08:44:05 Problem Notes None recorded. Procedures Surgical History Date Name Laterality Status Provider Name and Address Organization Details Recorded Time 3 Injections completed Hammad Pham [facility], [facility] 06/25/2022 10:35:10 3 Injections completed SANJEEV BILL [facility] 07/29/2022 09:33:44 3 Injections completed nadine nickerson [facility], [facility] 03/22/2022 13:49:14 2 Injections completed uri corbin [facility], [facility] 02/17/2022 15:29:52 2 Injections completed uri corbin [facility], [facility] 01/13/2022 13:53:39 2 [place] [address], [place], [address], [facility], [facility] 02/07/2012 13:23:39 Imaging Results Imaging Date Name Status LastModified by Organiz ation Details LastModified Time 03/04/2022 XR, knee, 3 view completed [facility] [address], [place], [address], 05/27/2022 14:51:08 03/04/2022 XR, knee, 3 view completed [facility] [address], [place], [address], 05/27/2022 14:51:08 03/04/2022 XR, knee, 3 view completed [facility] [address] [facility] [address] [place], [address], 05/27/2022 14:51:08 03/04/2022 XR, knee, 3 view completed [facility] [address] [facility] [address] [place], [address], 05/27/2022 14:51:08 Procedure Notes None recorded. Medical Equipment None Reported. Allergies Allergen ID Allergen Name Allergen Category Reaction Reaction Severity Criticality Documentation Date Start Date Code Code System Note Provider Name and Address Organization Details Recorded Time 52229 latex environme nt,medica tion hives Not available Not available 02/12/2014 04094 91 RxNorm ashly castillo [facility] 4 09:04:41 94 Substance with sulfonami de structure and antibacte rial mechanism of action (substanc e) medicatio n Not available Not available Not available 02/07/2012 79148 8003 SNOMED Russell [facility] 2 13:06:50 Medications Name Sig Start Date Stop Date Status Note LastModified by Organization Details LastModified Time prednisone 10 mg tablet TAKE 2 TABLETS BY MOUTH EVERY DAY FOR 7 DAYS THEN TAKE 1 TABLET BY MOUTH EVERY DAY FOR 7 DAYS active Not Available Not Available No t Available doxycycline hyclate 100 mg capsule Take 1 capsule every 12 hours by oral route as directed for 2 days. active Not Available Not Available No t Available ipratropium 0.5 mg-albutero l 3 mg (2.5 mg base)/3 mL nebulizatio n soln Inhale 3 mL 4 times a day by inhalatio n route as directed for 60 days. active Not Available Not Available No t Available albuterol sulfate 2.5 mg/3 mL (0.083 %) solution for nebulizatio n active Not Available Not Available Not Available BD Luer-Glenroy Syringe 3 mL 25 x 5/8 USE DIRECTED active Not Available Not Available No t Available azithromyci n 250 mg tablet TAKE 2 TABLETS (500 MG) BY ORAL ROUTE ONCE DAILY FOR 1 DAY THEN 1 TABLET (250 MG) BY ORAL ROUTE ONCE DAILY FOR 4 DAYS 04/11 completed Not Available Not Available Not Available benzonatate 200 mg capsule 01/06 completed Not Available Not Available Not Available Nystop 100,000 unit/gram topical powder active Not Available Not Available Not Available famotidine 40 mg tablet TAKE 1 TABLET BY MOUTH EVERY DAY 06/10 completed Not Available Not Available Not Available prednisone 20 mg tablet TAKE ONE TABLET BY MOUTH DAILY FOR 5 DAYS 01/01 completed Not Available Not Available Not Available BD Insulin Syringe 1 mL 25 gauge x 5/8 as directed active Not Available Not Available No t Available prednisone 5 mg tablet PLEASE SEE ATTACHED FOR DETAILED DIRECTION S 01/01 completed Not Available Not Available Not Available methylpredn isolone 4 mg tablet TAKE 4 TABLETS BY MOUTH ONCE DAILY FOR 10 DAYS 06/10 completed Not Available Not Available Not Available Debrox 6.5 % ear drops INSTILL 5 DROPS INTO AFFECTED EAR(S) BY OTIC ROUTE 2 TIMES PER DAY 01/06 completed Not Available Not Available Not Available valsartan 80 mg tablet Take 1 tablet twice a day by oral route for 90 days. 10/20 completed Not Available Not Available Not Available amlodipine 2.5 mg tablet TAKE 1 TABLET EVERY DAY DIRECTED 02/20 completed Not Available Not Available Not Available amlodipine 5 mg tablet Take 1 tablet every day by oral route for 90 days. 06/29 completed Not Available Not Available Not Available amoxicillin 500 mg tablet TAKE 1 TABLET BY MOUTH EVERY 8 HOURS UNTIL GONE. 01/05 completed Not Available Not Available Not Available amoxicillin 875 mg tablet TAKE 1 TABLET BY MOUTH TWICE A DAY FOR 7 DAYS 01/01 completed Not Available Not Available Not Available famotidine 20 mg tablet TAKE 1 TABLET BY MOUTH ONCE DAILY FOR 90 DAYS active Not Available Not Available No t Available methotrexat e sodium 2.5 mg tablet active Not Available Not Available Not Available ropinirole 0.25 mg tablet Take 1 tablet every day by oral route as directed. active Not Available Not Available No t Available prednisone 2.5 mg tablet PLEASE SEE ATTACHED FOR DETAILED DIRECTION S 02/02 completed Not Available Not Available Not Available cephalexin 500 mg capsule Take 1 capsule 4 times a day by oral route as directed for 7 days. 01/08 completed Not Available Not Available Not Available cyanocobala min (vit B-12) 1,000 mcg/mL injection solution INJECT 1ML INTRAMUSC ULARLY EVERY MONTH DIRECTED 2022 active Not Available Not Available Not Avai lable ropinirole 0.5 mg tablet active Not Available Not Available Not Available metoprolol succinate ER 25 mg tablet,exte nded release 24 hr Take 0.5 tablets every day by oral route as directed for 90 days. 2022 active Not Available Not Available Not Avai lable ergocalcife rol (vitamin D2) 1,250 mcg (50,000 unit) capsule Take 1 capsule every week by oral route. 06/03 completed Not Available Not Available Not Available hydroxychlo roquine 200 mg tablet Take 1 tablet twice a day by oral route as directed for 5 days. active Not Available Not Available No t Available levofloxaci n 750 mg tablet Take 1 tablet every day by oral route for 14 days. 06/11 completed Not Available Not Available Not Available methylpredn isolone 4 mg tablets in a dose pack FOLLOW PACKAGE DIRECTION S 02/02 completed Not Available Not Available Not Available albuterol sulfate HFA 90 mcg/actuati on aerosol inhaler INHALE 2 PUFFS BY MOUTH FOUR TIMES DAILY 2021 active Not Available Not Available Not Avai lable cefdinir 300 mg capsule Take 1 capsule twice a day by oral route as directed for 2 days. active Not Available Not Available No t Available naproxen 500 mg tablet TAKE 1 TABLET BY MOUTH 2 TIMES A DAY WITH FOOD 01/01 completed Not Available Not Available Not Available diazepam 5 mg tablet TAKE 1 TABLET BY MOUTH EVERY 6 TO 8 HOURS NEEDED 03/02 completed Not Available Not Available Not Available amoxicillin 500 mg-potassiu m clavulanate 125 mg tablet Take 1 tablet every 12 hours by oral route before meals for 21 days. active Not Available Not Available No t Available valsartan 160 mg tablet TAKE 1 TABLET EVERY DAY 10/20 completed Not Available Not Available Not Available neomycin-po lymyxin-hyd rocort 3.5 mg-10,000 unit/mL-1 % ear drops,susp 01/01 completed Not Available Not Available Not Available olmesartan 20 mg tablet TAKE 1/2 TABLET BY MOUTH EVERY DAY DIRECTED active Not Available Not Available No t Available Vitamin D3 25 mcg (1,000 unit) capsule Take 3 capsules every day by oral route as directed. 04/11 completed Not Available Not Available Not Available nitrofurant oin monohydrate /macrocryst als 100 mg capsule TAKE ONE CAPSULE BY MOUTH EVERY 12 HOURS FOR 7 DAYS 03/02 completed Not Available Not Available Not Available BD Integra Syringe 3 mL 25 gauge x 5/8 USE DIRECTED active Not Available Not Available No t Available chlorhexidi ne gluconate 0.12 % mouthwash PLEASE SEE ATTACHED FOR DETAILED DIRECTION S 03/02 completed Not Available Not Available Not Available magnesium Once a day 05/27 completed Not Available Not Available Not Available calcium Once a day active Not Available Not Available No t Available vitamin E Once a day. 05/27 completed Not Available Not Available Not Available garlic Once a day 02/06 completed Not Available Not Available Not Available zinc Once a day 05/27 completed Not Available Not Available Not Available Fish Oil Once a day 03/02 completed Not Available Not Available Not Available multivitami n Once a day active Not Available Not Available No t Available Calcarb 600 With Vitamin D Once a day 04/26 completed Not Available Not Available Not Available PreserVisio n AREDS Two tablets once a day active Not Available Not Available No t Available Symbicort 160 mcg-4.5 mcg/actuati on HFA aerosol inhaler 01/04 completed Not Available Not Available Not Available Flovent Diskus 100 mcg/actuati on powder for inhalation Inhale 1 puff twice a day by inhalatio n route as directed. 05/18 completed Not Available Not Available Not Available Vitamin D 5,000 unit tablet Take 1 tablet every day by oral route. 05/27 completed Not Available Not Available Not Available Vitamin D3 50 mcg (2,000 unit) capsule Take 1 capsule every day by oral route as directed. 02/27 completed Not Available Not Available Not Available Vitamin D2 2 tablet twice daily active Not Available Not Available No t Available Stiolto Respimat 2.5 mcg-2.5 mcg/actuati on solution for inhalation Inhale 2 puffs every day by inhalatio n route as directed. 02/02 completed Not Available Not Available Not Available Shingrix (PF) 50 mcg/0.5 mL intramuscul ar suspension, kit 02/20 completed Not Available Not Available Not Available Fluad Quad (6 5yr up)(PF) 60 mcg (15 mcg x 4)/0.5mL IM syringe ADM 0.5ML IM UTD 02/20 completed Not Available Not Available Not Available Trelegy Ellipta 200 mcg-62.5 mcg-25 mcg powder for inhalation INHALE 1 PUFF BY MOUTH EVERY DAY 2022 active Not Available Not Available Not Avai lable Flowflex COVID-19 Antigen Home Test kit REFER TO MANUFACTU RER INSTRUCTI ONS INCLUDED IN PACKAGING 01/01 completed Not Available Not Available Not Available Paxlovid 150 mg-100 mg tablets in a dose pack (Renal Dose) TAKE 2 TABLETS LABELLED BY MOUTH TWICE DAILY FOR 5 DAYS. RENAL DOSE GFR 44 01/01 completed Not Available Not Available Not Available Vitals Date Recorded Body height Body mass index (BMI) Body weight Body temperature Respiratory rate Heart rate Oxygen saturation Oxygen saturation in Arterial blood by Pulse oximetry Systolic blood pressure Diastolic blood pressure Provider Name and Address Organization Details Last Updated DateTime 2 152.4 cm 29.3 kg/m2 24574.8 6 g 97.6 [degF] 16 /min 79 /min 95 % 95 % 136 mm[Hg] 73 mm[Hg] YANNICK MALIK [facility], [facility] 2 11:30:57 Date Recorded Body height Body mass index (BMI) Body weight Heart rate Oxygen saturation Oxygen saturation in Arterial blood by Pulse oximetry Respiratory rate Body temperature Systolic blood pressure Diastolic blood pressure Provider Name and Address Organization Details Last Updated DateTime 3 152.4 cm 29.5 kg/m2 13757.4 5 g 79 /min 96 % 96 % 16 /min 97.8 [degF] 118 mm[Hg] 60 mm[Hg] Hammad Pham [facility], [facility] 3 14:46:48 Date Recorded Body height Body mass index (BMI) Body weight Respiratory rate Body temperature Oxygen saturation Oxygen saturation in Arterial blood by Pulse oximetry Heart rate Systolic blood pressure Diastolic blood pressure Provider Name and Address Organization Details Last Updated DateTime 3 152.4 cm 30.5 kg/m2 10547.4 1 g 16 /min 97.6 [degF] 91 % 91 % 82 /min 132 mm[Hg] 68 mm[Hg] uri corbin [facility], [facility] 3 13:37:48 Date Recorded Respiratory rate Heart rate Oxygen saturation Oxygen saturation in Arterial blood by Pulse oximetry Body temperature Systolic blood pressure Diastolic blood pressure Provider Name and Address Organization Details Last Updated DateTime 3 16 /min 85 /min 94 % 94 % 97.7 [degF] 121 mm[Hg] 71 mm[Hg] Hammad Pham [facility] 3 10:37:29 Social History Question Answer Notes LastModified by Organizat ion Details LastModified Time Tobacco Smoking Status Former Smoker Not Available [facility] 01/08/2020 03:18:43 Do You Have An Advance Directive? Yes Information not available 06/23/2020 What Is Your Level Of Alcohol Consumption? None [email or web address] Information not available 06/23/2020 Are You Blind Or Do You Have Difficulty Seeing? No [email or web address] Information not available 06/23/2020 Is Blood Transfusion Acceptable In An Emergency? Yes [email or web address] Information not available 02/02/2022 What Is Your Level Of Caffeine Consumption? Occasional Information not available 06/23/2020 How Much Tobacco Do You Chew? None [email or web address] Information not available 06/23/2020 What Is Your Code Status? DNR [email or web address] Information not available 02/02/2022 Are You Deaf Or Do You Have Serious Difficulty Hearing? No [email or web address] Information not available 02/02/2022 What Type Of Diet Are You Following? REGULAR [email or web address] Information not available 06/23/2020 Do You Have A Directive To Physicians? 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 0 Information not available 04/16/2016 Are There Any Guns Present In Your Home? Yes [email or web address] Information not available 06/23/2020 Hard Of Hearing Or Deaf In One Or Both Ears? No [email or web address] Information not available 02/07/2012 Single Or Multi-level Home/work? Multi Level Home Information not available 06/23/2016 Legally Blind In One Or Both Eyes? No [email or web address] Information not available 02/07/2012 Live Alone Or With Others? With Others [email or web address] Information not available 07/09/2013 Safe Kenneth/Lightin g In Home Yes Information not available 06/23/2016 Do You Exercise For At Least 20 Minutes A Day 3 Or 4 Times A Week? Less Than 3 Times Per Week Information not available 06/23/2016 How Is Your Diet? Balanced Information not available 06/23/2016 During The Last 4 Weeks Has Your Physical And Emotional Health Limited Your Social Activities With Friends Or Family? Not At All Information not available 06/23/2016 Do You Wear Hearing Aids? No Information not available 06/23/2016 Do You Experience Ringing In Your Ears No Information not available 06/23/2016 Do You Feel That People Mumble Or Do Not Speak Clearly No Information not available 06/23/2016 Do You Have To Ask People To Repeat Themselves When Talking? No Information not available 06/23/2016 Do You Have Little Interest Or Pleasure In Doing Things Not At All Information not available 06/23/2016 Feel Down, Depressed Or Hopeless Not At All Information not available 06/23/2016 Do You Ever Have Difficulty Speaking? Not At All Information not available 06/23/2016 Difficulty Getting Out Of Bed No Information not available 06/23/2016 Difficulty Grooming Yourself No Information not available 06/23/2016 Difficulity Grocery Shopping With Out Assistance? No Information not available 06/23/2016 Difficulty Managing Your Medications? No Information not available 06/23/2016 Difficulty Preparing Meals No Information not available 06/23/2016 Difficulty Managing Finances No Information not available 06/23/2016 Are You Afraid Of Falling? No Information not available 06/23/2016 Have You Fallen 2 Or More Times In The Last Year? No Information not available 06/23/2016 Do You Experience Frequent Dizziness Or Vertigo No Information not available 06/23/2016 Flu Vaccine 12/11/2016 Information not available 06/30/2017 TDAP 01/01/2014 Information n ot available 06/30/2017 Zoster ( Shingles) 03/15/2017 Information not available 06/30/2017 Colonoscopy 03/14/2002 Information not available 06/30/2017 Eye Glaucoma Exam 07/11/2017 Information not available 06/30/2017 Mammogram 01/10/2017 Information n ot available 06/30/2017 Pneumovax 01/24/2008 Information n ot available 06/30/2017 Prevnar 13 06/11/2014 Information n ot available 06/30/2017 List Everyone In The Household, Including Pets Information not available 06/30/2017 Marital Status [email or web address] Informatio n not available 02/07/2012 Do You Have A Medical Power Of Lens Edge Grinder Machine? Yes [email or web address] Information not available 02/02/2022 What Was The Date Of Your Most Recent Tobacco Screening? 02/02/2022 [email or web address] Information not available 02/02/2022 Do You Have An Out Of Hospital DNR? No [email or web address] Information not available 02/02/2022 Performs Monthly Self-breast Exam? No Information not available 02/07/2012 Do You Use Your Seat Belt Or Car Seat Routinely? Yes [email or web address] Information not available 06/23/2020 Seat Belts Used Routinely Yes [email or web address] Information not available 02/07/2012 Smoke Alarm In Home Yes Information not available 02/07/2012 How Much Tobacco Do You Smoke? 1 PPD [email or web address] Information not available 06/23/2020 General Stress Level Low [email or web address] Information not available 02/07/2012 Do You Use Sunscreen Routinely? No Information not available 06/23/2020 How Many Years Have You Smoked Tobacco? 20 Information not available 06/23/2020 Sex: Unknown Functional Status Question Answer Note LastModified by Organizat ion Details LastModified Time Do you have difficulty walking or climbing stairs? No [email or web address] Information not available 06/23/2020 Do you have difficulty doing errands alone? No [email or web address] Information not available 06/23/2020 Are you able to care for yourself? Yes [email or web address] Information not available 06/23/2020 Do you have difficulty dressing or bathing? No Information not available 06/23/2020 What is your exercise level? Occasional [email or web address] Information not available 06/23/2020 Mental Status Question Answer Note LastModified by Organization D etails LastModified Time Do you have difficulty concentrating, remembering or making decisions? No Information no t available 06/23/2020 Family History Relationship Description Onset Age of this Age Resolved Age Notes LastModified by Organization Details LastModified Time Mother Primary malignant neoplasm of pancreas [email or web address] Not available 2015 10:20:53 Medical History Condition Response Anxiety Disorder N Coronary Artery Disease N Gout N Atrial Fibrillation N Arthritis N Kidney Stones N Diabetes - Insulin N BPH N Diverticulitis N Asthma N COPD N Hypothyroidism N Depression N Fatty Liver N Hypercholesterolemia N GERD N Post Angioplasty N Heart Disease N Fibromyalgia N Cancer Type: N Hypertension N Osteoporosis N Kidney Disease N Gynecological History Statement/Question Response If Post Menopausal, Age at Menopause 53 Age at Menarche 14 Obstetrics History GPAL:G 0 P 0 0 0 0 Immunizations Vaccine Type Date Status Note Provider Nam e and Address Organization Details Recorded Time pneumococcal polysaccharide PPV23 8 completed Not Available [facility] 06/10/2022 00:28:19 Influenza, split virus, trivalent, preservative 2 completed Not Available [facility] 06/10/2022 00:28:19 Influenza, adjuvanted, quadrivalent, PF 1 completed Not Available [facility] 06/10/2022 00:28:19 influenza, unspecified formulation 2 completed Not Available [facility] 06/10/2022 00:28:19 influenza nasal, unspecified formulation 3 completed Not Available [facility] 06/10/2022 00:28:20 zoster live 3 completed Not Available [facility] 07/25/2022 00:15:24 Pneumococcal conjugate PCV 13 5 completed [facility] 03/31/2019 02:36:20 Influenza, high-dose, trivalent, PF 4 completed Not Available [facility] 06/10/2022 00:28:19 Tdap 4 completed Not Available [facility] 06/10/2022 00:28:19 zoster recombinant 0 completed Rajiv Red [place] [address] [place] [address] [address], [place], [address], [facility] 01/10/2020 19:09:16 Influenza, split virus, trivalent, preservative 2 completed Not Available [facility] 06/10/2022 00:28:20 zoster live 3 completed Not Available [facility] 06/10/2022 00:28:19 Novel [id number]-[id number], all formulations 9 completed Not Available [facility] 07/25/2022 00:15:24 Influenza, high-dose, trivalent, PF 5 completed Not Available [facility] 06/10/2022 00:28:19 zoster recombinant 1 completed Rajiv Red [place] [address] [place] [address] [address], [place], [address], [facility], [facility] 06/13/2020 14:49:33 Influenza, high-dose, trivalent, PF 6 completed Not Available [facility] 06/10/2022 00:28:19 Novel [id number] 9 completed Not Available [facility] 06/10/2022 00:28:20 Influenza, high-dose, trivalent, PF 7 completed Not Available [facility] 06/10/2022 00:28:19 zoster live 3 completed Not Available [facility] 06/10/2022 00:28:19 influenza, unspecified formulation 8 completed Not [facility] 00:28:19 Influenza, split virus, quadrivalent, preservative 9 completed Not Available [facility] 06/10/2022 00:28:19 Influenza, adjuvanted, quadrivalent, PF 0 completed Not Available [facility] 06/10/2022 00:28:19 Influenza, split virus, quadrivalent, preservative 6 completed Not Available [facility] 06/10/2022 00:28:19 Influenza, split virus, quadrivalent, preservative 0 completed Not Available [facility] 06/10/2022 00:28:19 Past Encounters Encounter ID Performer Location Encounter Start Date Encounter Closed Date Diagnosis/Indication Diagnosis SNOMED-CT Code Diagnosis ICD10 Code Diagnosis Note [id number] [facility] Red [facility] [address] [place] [address] 02/07/2012 12:42:24 02/07/2012 13:34:51 [id number] Valeria Be OFFICE [address] [facility] [address] [place] [address] 03/01/2012 13:12:11 03/01/2012 13:44:13 [id number] Nicole Red OFFICE [address] [facility] [address] [place] [address] 03/15/2012 08:52:27 03/15/2012 09:42:59 [id number] Nicole Red OFFICE [address]92 [facility] [address] [place] [address] 04/21/2012 10:08:03 04/21/2012 11:14:32 [id number] [facility] [address] [facility] [address] [place] [address] 06/19/2013 08:50:48 06/19/2013 10:07:41 Dyspnea 067643201 Asthma 557656491 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 553868824 Vitamin D deficiency 57699685 Hip pain 62385525 [id number] Valeria Be OFFICE [address] [place] [address] 07/09/2013 07:12:45 07/09/2013 07:51:45 Chronic obstructive pulmonary disease 72847544 Dyspnea 158118760 Hip pain 41134138 Vitamin D deficiency 08498915 [id number] Valeria Be OFFICE [address] [facility] [address] [place] [address] 07/09/2013 09:17:30 07/09/2013 09:29:33 Adult health examination [id number] OFFICE [address] [facility] [address] [place] [address] 01/01/2014 10:53:18 01/01/2014 12:55:01 Asthma 819826367 Chronic ob structive pulmonary disease 51047610 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 544289780 Disorder o f lipid metabolism 617906666 Vitamin D deficiency 63514466 [id number] OFFICE [address] [facility] [address] [place] [address] 02/12/2014 09:02:09 02/12/2014 09:35:29 Chronic obstructive pulmonary disease 68901493 Disorder o f lipid metabolism 260320616 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 930800587 Knee pain 36313766 [id number] Rajiv Red MD OFFICE [address] [facility] [address] [place] [address] 02/27/2014 14:57:59 02/27/2014 16:03:30 Chronic obstructive pulmonary disease 39286081 Knee pain 47225755 Vitamin D deficiency 81106749 Disorder o f lipid metabolism 327043693 [id number] ashly castillo OFFICE [address] [facility] [address] [place] [address] 03/19/2014 11:01:18 03/19/2014 11:26:52 Acute bronchitis 25416560 Chronic ob structive pulmonary disease 31130696 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 376992978 Disorder o f lipid metabolism 024901283 [id number] Rajiv Red MD OFFICE [address] [facility] [address] [place] [address] 05/20/2014 09:09:11 05/20/2014 10:01:17 Disorder of lipid metabolism 233277367 Chronic ob structive pulmonary disease 75163949 Vitamin D deficiency 28912446 Asthma 894805254 Tobacco de pendence syndrome 26279750 [id number] Rajiv Red MD OFFICE [address] [facility] [address] [place] [address] 02/12/2015 08:55:36 02/12/2015 10:04:31 Chronic obstructive pulmonary disease 09466162 J44.9 Disorder o f lipid metabolism 272282782 E78.9 Osteopenia 217113493 M85 .80 Tobacco de pendence syndrome 91689441 F17.290 Vitamin D deficiency 347 01840 E55.9 Asthma 921203571 J45.90 9 Lightheadedness 84088417 8 R42 [id number] PJ Da OFFICE [address] [facility] [address] [place] [address] 03/21/2015 10:17:14 03/21/2015 11:21:29 Acute bronchitis 96980818 J20.9 Cough 91558474 R05 Disorder o f lipid metabolism 038307176 E78.9 Chronic ob structive pulmonary disease 56938241 J44.9 Pneumonia 883598032 J18. 9 Tobacco de pendence syndrome 65240081 F17.290 [id number] Rajiv Red MD OFFICE [address] [facility] [address] [place] [address] 4 03/27/2015 10:09:59 03/27/2015 10:27:46 Adult health examination 693293718 Z00.00 [id number] Rajiv Red MD OFFICE [address] [place] [address] [address] [place] [address] 05/07/2015 10:12:00 05/07/2015 11:18:55 Chronic obstructive pulmonary disease 68508583 J44.9 Disorder o f lipid metabolism 821715533 E78.9 Tobacco de pendence syndrome 69489079 F17.290 Hip pain 95179465 M25.55 2 Lightheadedness 21709540 8 R42 Foot pain 31542314 M79.6 71 M79.672 [id number] Rajiv Red MD OFFICE [address] [facility] [address] [place] [address] 05/13/2015 09:28:39 05/13/2015 11:01:51 Pneumonia 711970035 J18.9 Chronic ob structive pulmonary disease 76997852 J44.9 Disorder o f lipid metabolism 753607709 E78.9 Multiple n odules of lung 639571609 R91.8 [id number] Rajiv Red MD OFFICE [address] [facility] [address] [place] [address] 05/19/2015 08:30:44 05/19/2015 08:49:36 Chronic obstructive pulmonary disease 43204206 J44.9 Cough 55318306 R05 Multiple n odules of lung 869573961 R91.8 Pneumonia 320457865 J18. 9 Disorder o f lipid metabolism 435295133 E78.9 Acute bronchitis 6998013 2 J20.9 [id number] Rajiv Red MD OFFICE [address] [facility] [address] [place] [address] 4 05/22/2015 12:11:39 05/22/2015 12:51:08 Disorder of lipid metabolism 397410786 E78.9 Chronic ob structive pulmonary disease 39264956 J44.9 Multiple n odules of lung 267977004 R91.8 Vitamin D deficiency 347 75065 E55.9 Acute bronchitis 8507815 2 J20.9 [id number] Rajiv Red MD OFFICE [address] [place] [address] [address] [place] [address] 4 06/12/2015 08:39:02 06/12/2015 09:40:39 Acute bronchitis 07480266 J20.9 Chronic ob structive pulmonary disease 41540712 J44.9 Disorder o f lipid metabolism 226165893 E78.9 Vitamin D deficiency 347 44462 E55.9 Multiple n odules of lung 616772999 R91.8 [id number] Rajiv Red MD OFFICE [address] [place] [address] [address] [place] [address] 4 01/05/2016 10:13:33 01/05/2016 11:31:04 Disorder of lipid metabolism 118539095 E78.9 Chronic ob structive pulmonary disease 64999774 J44.9 Multiple n odules of lung 388809416 R91.8 Asthma 604183908 J45.90 9 Vitamin D deficiency 347 87359 E55.9 Disorder o f vitamin B12 473074832 E53.8 [id number] Rajiv Red MD OFFICE [address] [place] [address] [address] [place] [address] 4 01/23/2016 13:03:58 01/23/2016 14:09:20 Multiple nodules of lung 625805015 R91.8 Chronic ob structive pulmonary disease 71088003 J44.9 Body mass index 25-29 - overweight 733052160 Z68.29 Disorder o f lipid metabolism 935397268 E78.9 Disorder o f vitamin B12 755188476 E53.8 [id number] Rajiv Red MD OFFICE [address] [facility] [place] [address] 4 01/26/2016 09:52:20 01/26/2016 10:16:13 Disorder of vitamin B12 575008943 E53.8 [id number] Rajiv Red MD OFFICE [address] [facility] [address] [place] [address] 4 02/02/2016 08:53:21 02/04/2016 13:44:02 Disorder of vitamin B12 593423945 E53.8 [id number] Rajiv Red MD OFFICE [address] [facility] [address] [place] [address] 4 02/09/2016 08:26:40 02/09/2016 08:35:58 Disorder of vitamin B12 533293229 E53.8 [id number] Rajiv Red MD OFFICE [address] [facility] [address] [facility] [address] [place] [address] 4 02/16/2016 09:02:19 02/16/2016 14:15:36 Disorder of vitamin B12 085593682 E53.8 [id number] Rajiv Red MD OFFICE [address] [facility] [address] [place] [address] 4 03/16/2016 08:04:02 03/16/2016 08:21:59 Disorder of vitamin B12 593968713 E53.8 [id number] Rajiv Red MD OFFICE [address] [facility] [address] [place] [address] 4 03/26/2016 09:26:32 03/26/2016 10:58:10 Multiple nodules of lung 522829740 R91.8 Vitamin D deficiency 347 64144 E55.9 Disorder o f vitamin B12 877102730 E53.8 Body mass index 30+ - obesity 773971234 Z68.39 Chronic ob structive pulmonary disease 54188445 J44.9 Disorder o f lipid metabolism 408445639 E78.9 Osteopenia 297810681 M85 .80 Body mass index 25-29 - overweight 801941745 Z68.29 [id number] Rajiv Red MD OFFICE [address] [facility] [address] [place] [address] 4 04/16/2016 12:21:26 04/16/2016 12:30:59 Disorder of vitamin B12 054375163 E53.8 [id number] Rajiv Red MD OFFICE [address] [place] [address] [address] [place] [address] 05/12/2016 10:21:34 05/12/2016 10:58:42 Disorder of vitamin B12 993582771 E53.8 [id number] Rajiv Red MD OFFICE [address] [place] [address] [address] [place] [address] 06/14/2016 10:45:52 06/14/2016 11:04:52 Disorder of vitamin B12 068388146 E53.8 [id number] Rajiv Red MD OFFICE [address] [place] [address] [address] [place] [address] 06/22/2016 15:26:44 06/22/2016 16:46:13 Disorder of vitamin B12 082044159 E53.8 Disorder o f lipid metabolism 152594646 E78.9 Chronic ob structive pulmonary disease 41851941 J44.9 Body mass index 30+ - obesity 503097053 Z68.30 Depression screening 171 640143 Z13.89 Multiple n odules of lung 884390843 R91.8 [id number] Rajiv Red MD OFFICE [address] [place] [address] [address] [place] [address] 06/23/2016 08:02:28 06/23/2016 11:14:42 Adult health examination 881969121 Z00.00 [id number] Rajiv Red MD OFFICE [address] [place] [address] [address] [place] [address] 01/18/2017 09:26:16 01/18/2017 15:23:01 Disorder of vitamin B12 693639687 E53.8 [id number] Rajiv Red MD OFFICE [address] [place] [address] [address] [place] [address] 02/11/2017 14:00:48 02/11/2017 15:55:40 Disorder of lipid metabolism 846964609 E78.9 Vitamin D deficiency 347 56726 E55.9 Disorder o f vitamin B12 213708998 E53.8 Chronic ob structive pulmonary disease 47658970 J44.9 Long-term drug therapy 065142432 Z79.899 Body mass index 25-29 - overweight 455326094 Z68.29 Multiple n odules of lung 461533683 R91.8 Essential hypertension 68759234 I10 [id number] Rajiv Red MD OFFICE [address] [facility] [address] [place] [address] 02/25/2017 14:54:27 02/25/2017 15:59:32 Vitamin D deficiency 05348893 E55.9 Disorder o f lipid metabolism 784797536 E78.9 Chronic ob structive pulmonary disease 69066451 J44.9 Long-term drug therapy 751546731 Z79.899 Body mass index 25-29 - overweight 545590796 Z68.29 Essential hypertension 58068464 I10 Varicose v eins of lower extremity 99109087 I83.891 [id number] Rajiv Red MD OFFICE [address] [facility] [address] [place] [address] 03/15/2017 08:16:31 03/15/2017 09:06:18 Essential hypertension 67059968 I10 Disorder o f lipid metabolism 346207712 E78.9 Long-term drug therapy 337282800 Z79.899 Body mass index 25-29 - overweight 146669540 Z68.29 Disorder o f vitamin B12 505100703 E53.8 Venous varices 313155715 I83.92 Cough 91237013 R05 [id number] Elizabeth Koo OFFICE [address] [facility] [address] [place] [address] 03/30/2017 13:50:57 03/30/2017 14:45:39 Essential hypertension 84928396 I10 Long-term drug therapy 183179489 Z79.899 Body mass index 25-29 - overweight 321975730 Z68.29 [id number] Rajiv Red MD OFFICE [address] [facility] [address] [place] [address] 04/08/2017 08:58:00 04/08/2017 09:46:13 Disorder of vitamin B12 770076269 E53.8 [id number] Rajiv Red MD OFFICE [address] [facility] [address] [place] [address] 04/26/2017 14:31:07 04/26/2017 15:38:55 Disorder of lipid metabolism 921698240 E78.9 Disorder o f vitamin B12 970374082 E53.8 Multiple n odules of lung 292750077 R91.8 Chronic ob structive pulmonary disease 97218675 J44.9 Essential hypertension 54106465 I10 Long-term drug therapy 331511688 Z79.899 Body mass index 25-29 - overweight 692055312 Z68.29 [id number] Rajiv Red MD OFFICE [address] [facility] [address] [place] [address] 05/05/2017 07:13:09 05/05/2017 07:53:43 Multiple nodules of lung 848519021 R91.8 Chronic ob structive pulmonary disease 38122611 J44.9 Essential hypertension 78373581 I10 Disorder o f lipid metabolism 609474807 E78.9 Long-term drug therapy 884133902 Z79.899 Depression screening 171 654706 Z13.89 Body mass index 30+ - obesity 346877205 Z68.30 [id number] Elizabeth Hayes OFFICE [address] [facility] [address] [place] [address] 05/13/2017 11:15:47 05/13/2017 13:25:11 Disorder of vitamin B12 828424611 E53.8 [id number] Rajiv Red MD OFFICE [address] [facility] [address] [place] [address] 06/03/2017 08:03:43 06/03/2017 09:09:35 Multiple nodules of lung 415028500 R91.8 Chronic ob structive pulmonary disease 37960709 J44.9 Essential hypertension 93350087 I10 Long-term drug therapy 235338593 Z79.899 Body mass index 25-29 - overweight 805626776 Z68.29 Disorder o f lipid metabolism 455483969 E78.9 Blurring o f visual image 724168598 H53.8 Cough 79842367 R05 [id number] Rajiv Red MD OFFICE [address] [facility] [address] [place] [address] 06/17/2017 08:53:22 06/17/2017 10:04:12 Multiple nodules of lung 463788111 R91.8 Chronic ob structive pulmonary disease 07449700 J44.9 Disorder o f lipid metabolism 831384215 E78.9 Essential hypertension 70611585 I10 Long-term drug therapy 928561889 Z79.899 Body mass index 30+ - obesity 303024886 Z68.31 Disorder o f vitamin B12 279274620 E53.8 [id number] Rajiv Red MD OFFICE [address] [facility] [address] [facility] [address] [place] [address] 4 06/29/2017 07:08:07 06/29/2017 07:53:52 Multiple nodules of lung 295839345 R91.8 Chronic ob structive pulmonary disease 06370446 J44.9 Essential hypertension 99287281 I10 Long-term drug therapy 595349368 Z79.899 Body mass index 25-29 - overweight 656652976 Z68.29 Venous varices 501937160 I83.92 Dizziness 769335946 R42 Orthostati c hypotension 84294798 I95.1 [id number] Rajiv Red MD OFFICE [address] [place] [address] [address] [place] [address] 4 06/30/2017 08:35:51 06/30/2017 14:42:18 Adult health examination 548728071 Z00.00 [id number] Rajiv Red MD OFFICE [address] [facility] [address] [place] [address] 4 07/07/2017 08:26:41 07/07/2017 09:15:58 Essential hypertension 72664636 I10 Disorder o f lipid metabolism 172291186 E78.9 Chronic ob structive pulmonary disease 95875741 J44.9 Disorder o f vitamin B12 432039808 E53.8 Long-term drug therapy 244076071 Z79.899 Body mass index 30+ - obesity 076563823 Z68.30 Venous varices 162900689 I83.90 Multiple n odules of lung 544255342 R91.8 Orthostati c hypotension 24428685 I95.1 Impacted cerumen 3651000 6 H61.21 [id number] Rajiv Red MD OFFICE [address] [facility] [address] [place] [address] 07/11/2017 10:36:49 07/11/2017 11:15:16 Essential hypertension 81744350 I10 Disorder o f lipid metabolism 853425906 E78.9 Disorder o f vitamin B12 640325565 E53.8 Chronic ob structive pulmonary disease 24291849 J44.9 Long-term drug therapy 554911411 Z79.899 Body mass index 30+ - obesity 489185182 Z68.30 Impacted cerumen 9040485 6 H61.21 [id number] Rajiv Red MD OFFICE [address] [place] [address] [address] [place] [address] 4 01/06/2018 09:38:16 01/06/2018 11:29:37 Essential hypertension 35769635 I10 Disorder o f lipid metabolism 472981944 E78.9 Chronic ob structive pulmonary disease 73566629 J44.9 Vitamin D deficiency 347 41982 E55.9 Tobacco de pendence syndrome 32322105 F17.290 Long-term drug therapy 363835618 Z79.899 Body mass index 30+ - obesity 287270673 Z68.30 Disorder o f vitamin B12 433098363 E53.8 Multiple n odules of lung 764821614 R91.8 Venous varices 145772430 I83.92 Dizziness 469130175 R42 Orthostati c hypotension 69543581 I95.1 [id number] Rajiv Red MD OFFICE [address] [place] [address] [address] [place] [address] 4 01/19/2018 15:36:10 01/20/2018 09:41:13 Essential hypertension 39555957 I10 Disorder o f lipid metabolism 002324393 E78.9 Dizziness 134340974 R42 Chronic ob structive pulmonary disease 94663627 J44.9 Asthma 927054380 J45.90 9 Long-term drug therapy 382495744 Z79.899 Body mass index 30+ - obesity 472800091 Z68.30 Multiple n odules of lung 946418761 R91.8 Disorder o f vitamin B12 058057217 E53.8 Venous varices 519712590 I83.92 Vertigo 302074030 R42 Orthostati c hypotension 16172977 I95.1 Syncope 421503599 R55 [id number] Rajiv Red MD OFFICE [address] [place] [address] [address] [place] [address] 4 02/06/2018 13:57:44 02/06/2018 15:34:36 Essential hypertension 74354169 I10 Vertigo 788511444 R42 Dizziness 183419563 R42 Syncope 535204041 R55 Chronic ob structive pulmonary disease 33176174 J44.9 Orthostati c hypotension 81246940 I95.1 Long-term drug therapy 708164083 Z79.899 Body mass index 30+ - obesity 974357995 Z68.31 Disorder o f vitamin B12 231507130 E53.8 Multiple n odules of lung 695629800 R91.8 Pulmonary hypertension 79341022 I27.20 Palpitations 49961055 R0 0.2 [id number] Rajiv Red MD OFFICE [address] [place] [address] [address] [place] [address] 4 02/27/2018 14:40:20 02/27/2018 15:09:24 Essential hypertension 16641018 I10 Chronic ob structive pulmonary disease 12661272 J44.9 Tobacco de pendence syndrome 52537272 F17.290 Vertigo 818928642 R42 Long-term drug therapy 993855013 Z79.899 Body mass index 30+ - obesity 056660958 Z68.31 Supraventr icular tachycardia 3265635 I47.1 Ventricula r tachycardia 70788773 I47.2 Lightheadedness 38400025 8 R42 Syncope 025325936 R55 [id number] Rajiv Red MD OFFICE [address] [place] [address] Road [address] [place] [address] 4 03/30/2018 13:43:09 03/30/2018 15:08:43 Chronic obstructive pulmonary disease 18710144 J44.9 Essential hypertension 28340516 I10 Disorder o f lipid metabolism 938665529 E78.9 Long-term drug therapy 193317127 Z79.899 Body mass index 30+ - obesity 495749972 Z68.31 Depression screening 171 596599 Z13.89 Syncope 704530628 R55 Supraventr icular tachycardia 3684218 I47.1 Ventricula r tachycardia 11308477 I47.2 Disorder o f vitamin B12 771442577 E53.8 [id number] Rajiv Red MD OFFICE [address] [place] [address] [address] [place] [address] 05/19/2018 08:52:38 05/19/2018 10:36:23 Chronic obstructive pulmonary disease 51372862 J44.9 Stable. Continue inhalers. Continue follow-up with pulmonary. Disorder o f lipid metabolism 760574278 E78.9 Stable on statin therapy. No change in regimen. Screening abdominal aortic aneurysm performed in office today. Results revealed aorta < 3cm. These results were discussed and reviewed with the patient. Multiple n odules of lung 051578009 R91.8 Stable. Continue follow-up with pulmonary. Body mass index 30+ - obesity 462806878 Z68.30 Down 6 lbs. The patient is to work on weight with proper diet and exercise. Patient knows to eat a low sodium, low cholestero l and low carbohydra te diet. Patient is to stay active and exercise at least 30 to 45 minutes 3-5 times a week or as best tolerated. Patient understand s and agrees to the plan. Long-term drug therapy 404885119 Z79.899 Disorder o f vitamin B12 535305904 E53.8 Stable. Continue supplement s. Received injection today. Given by MA. Essential hypertension 99684046 I10 Stable. Continue current regimen. Cough 37261449 R05 New onset dry cough Began after starting metoprolol . She does have COPD. She is on olmesartan . She does not smoke but has history of smoking. She has pulmonary nodules with CT scans done by pulmonary with Dr. Rodriguez. We will cut the metoprolol in half as this may be worsening her cough due to interactio n with COPD. If not change consider switching ARB. Get patient back to pulmonary also if no better after changes. [id number] Rajiv Red MD OFFICE [address] [facility] [address] [place] [address] 06/08/2018 09:39:23 06/08/2018 10:49:58 Supraventricular tachycardia 0777374 I47.1 HR stable on lower dose of BB Essential hypertension 28456876 I10 Stable. Continue current regimen. Chronic ob structive pulmonary disease 82197638 J44.9 Stable. Continue inhalers. Continue follow-up with pulmonary. Multiple n odules of lung 007682044 R91.8 Stable. Continue follow-up with pulmonary. Disorder o f lipid metabolism 647977485 E78.9 Stable on statin therapy. Continue regimen. Body mass index 30+ - obesity 564500439 Z68.31 Was down 6lbs but now up 2 lbs. The patient is to work on weight with proper diet and exercise. Patient knows to eat a low sodium, low cholestero l and low carbohydra te diet. Patient is to stay active and exercise at least 30 to 45 minutes 3-5 times a week or as best tolerated. Patient understand s and agrees to the plan. Long-term drug therapy 140458382 Z79.899 Cough 36156815 R05 Recent new onset dry cough This began after starting metoprolol . She does have COPD. She is on olmesartan . She does not smoke but has history of smoking. She has pulmonary nodules with CT scans done by pulmonary with Dr. Rodriguez. Patient feels like the cough has lessened. She will hold off at this time with follow-up with pulmonary. Discussed following up with her PCP [place]. We will see her back in 1 month prior to going home. [id number] Rajiv Red MD OFFICE [address] [place] [address] [address] [place] [address] 07/06/2018 09:52:07 07/06/2018 10:52:31 Disorder of vitamin B12 316451617 E53.8 Stable. Continue supplement s. Received injection today. Given by [facility]. Disorder o f lipid metabolism 329734956 E78.9 Stable on statin therapy. Continue regimen. Essential hypertension 08211680 I10 Stable. Continue current regimen. Chronic ob structive pulmonary disease 58797870 J44.9 Stable. Continue inhalers. Continue follow-up with pulmonary. Long-term drug therapy 505928018 Z79.899 Body mass index 30+ - obesity 034832490 Z68.30 Was down 6lbs but now up 2 lbs. The patient is to work on weight with proper diet and exercise. Patient knows to eat a low sodium, low cholestero l and low carbohydra te diet. Patient is to stay active and exercise at least 30 to 45 minutes 3-5 times a week or as best tolerated. Patient understand s and agrees to the plan. Alcohol co nsumption screening 966358687 Z13.89 Leukopenia 79745770 D72. 819 New onset at 4.1. B12 low normal. No B symptoms. Going [place]. Suggest repeat lab with provider [place]. [id number] Rajiv Red MD OFFICE [address] [facility] [address] [place] [address] 01/08/2019 15:31:45 01/08/2019 16:48:07 Essential hypertension 67832793 I10 Disorder o f lipid metabolism 581421194 E78.9 Supraventr icular tachycardia 1600130 I47.1 Long-term drug therapy 263948842 Z79.899 Body mass index 30+ - obesity 494508327 Z68.30 Fatigue 81323616 R53.83 [id number] Rajiv Red MD OFFICE [address] [facility] [address] [place] [address] 03/12/2019 14:09:18 03/12/2019 14:47:08 Essential hypertension 32782787 I10 Chronic ob structive pulmonary disease 64197826 J44.9 Disorder o f lipid metabolism 608432180 E78.9 Asthma 333641193 J45.90 9 Supraventr icular tachycardia 9420154 I47.1 Leukopenia 48122124 D72. 819 Long-term drug therapy 215852703 Z79.899 Body mass index 30+ - obesity 811877289 Z68.30 Disorder o f vitamin B12 462653835 E53.8 Serum crea tinine above reference range 005467298 R79.89 [id number] Rajiv Red MD OFFICE [address] [facility] [place] [address] 03/16/2019 14:26:34 03/16/2019 14:34:38 Adult health examination 177368407 Z00.00 [id number] Rajiv Red MD OFFICE [address] [facility] [address] [place] [address] 04/03/2019 09:59:30 04/03/2019 11:07:46 Disorder of lipid metabolism 849538737 E78.9 Essential hypertension 63591084 I10 Chronic ob structive pulmonary disease 81398161 J44.9 Long-term drug therapy 654109211 Z79.899 Body mass index 30+ - obesity 550882187 Z68.31 Depression screening 171 667043 Z13.89 Acute bronchitis 7764915 2 J20.9 Influenza 0669907 J11.1 [id number] Rajiv Red MD OFFICE [address] [place] [address] [address] [place] [address] 4 04/04/2019 09:51:52 04/04/2019 11:31:27 Essential hypertension 89138963 I10 Disorder o f lipid metabolism 790918814 E78.9 Leukopenia 63225549 D72. 819 Supraventr icular tachycardia 3038649 I47.1 Chronic ob structive pulmonary disease 68256258 J44.9 Asthma 535443421 J45.90 9 Long-term drug therapy 423088522 Z79.899 Body mass index 30+ - obesity 230071397 Z68.31 Acute bronchitis 7003519 2 J20.9 [id number] Rajiv Red MD OFFICE [address] [place] [address] [address] [place] [address] 4 04/11/2019 10:21:30 04/11/2019 11:17:17 Supraventricular tachycardia 9797840 I47.1 Pulmonary hypertension 90565660 I27.20 Essential hypertension 11748021 I10 Disorder o f lipid metabolism 367380509 E78.9 Chronic ob structive pulmonary disease 26607046 J44.9 Asthma 636842826 J45.90 9 Long-term drug therapy 722343524 Z79.899 Body mass index 30+ - obesity 855959068 Z68.31 Disorder o f vitamin B12 638459503 E53.8 Acute bronchitis 8752206 2 J20.9 [id number] Rajiv Red MD OFFICE [address] [place] [address] [address] [place] [address] 4 04/17/2019 13:10:14 04/17/2019 13:54:22 Supraventricular tachycardia 0120071 I47.1 Pulmonary hypertension 33671682 I27.20 Essential hypertension 26429376 I10 Chronic ob structive pulmonary disease 84371504 J44.9 Asthma 438837506 J45.90 9 Long-term drug therapy 400832300 Z79.899 Body mass index 30+ - obesity 483105489 Z68.31 Serum crea tinine above reference range 540284574 R79.89 [id number] Rajiv Red MD OFFICE [address] [place] [address] [address] [place], [place] [address] 4 04/23/2019 10:07:34 04/23/2019 11:08:58 Essential hypertension 39080548 I10 Disorder o f lipid metabolism 838118208 E78.9 Chronic ob structive pulmonary disease 14973345 J44.9 Long-term drug therapy 039860823 Z79.899 Body mass index 30+ - obesity 666545219 Z68.32 Serum crea tinine above reference range 825141564 R79.89 [id number] Rajiv Red MD OFFICE [address] [place] [address] 05/14/2019 09:57:03 05/14/2019 11:08:01 Chronic kidney disease stage 3 667843680 N18.3 Supraventr icular tachycardia 4036334 I47.1 Disorder o f lipid metabolism 660408886 E78.9 Long-term drug therapy 421525904 Z79.899 Body mass index 30+ - obesity 748798672 Z68.32 Disorder o f vitamin B12 913967449 E53.8 Essential hypertension 73712884 I10 [id number] Rajiv Red MD OFFICE [address] [facility] [place] [address] 06/04/2019 14:27:13 06/04/2019 15:17:08 Chronic kidney disease stage 3 373922589 N18.3 Disorder o f lipid metabolism 797921081 E78.9 Multiple n odules of lung 738573329 R91.8 Essential hypertension 89174436 I10 Long-term drug therapy 638478773 Z79.899 Body mass index 30+ - obesity 960698002 Z68.32 Cyst of kidney 752667841 N28.1 [id number] Rajiv Red MD OFFICE [address] [facility] [place] [address] 07/09/2019 10:03:21 07/09/2019 10:46:10 Disorder of vitamin B12 804110324 E53.8 Essential hypertension 19049607 I10 Chronic ki dney disease stage 3 609600216 N18.3 Supraventr icular tachycardia 0787450 I47.1 Cyst of kidney 289864812 N28.1 Chronic ob structive pulmonary disease 43266085 J44.9 Long-term drug therapy 950600856 Z79.899 Body mass index 30+ - obesity 620150024 Z68.31 Pulmonary hypertension 75484971 I27.20 Fatigue 56419843 R53.83 [id number] Rajiv Red MD OFFICE [address] [place] [address] [address] [place] [address] 4 08/07/2019 12:36:55 08/07/2019 12:59:54 Disorder of vitamin B12 899090438 E53.8 [id number] Rajiv Red MD OFFICE [address] [place] [address] [address] [place] [address] 4 01/07/2020 10:37:53 01/07/2020 11:49:16 Essential hypertension 14419312 I10 Disorder o f vitamin B12 989120175 E53.8 Chronic ki dney disease stage 3 487793981 N18.31 Supraventr icular tachycardia 8240516 I47.1 Cyst of kidney 249301399 N28.1 Chronic ob structive pulmonary disease 82620141 J44.9 Pulmonary hypertension 03344287 I27.20 Long-term drug therapy 522241848 Z79.899 Body mass index 30+ - obesity 741418472 Z68.30 Disorder o f lipid metabolism 001910627 E78.9 Asthma 518949398 J45.90 9 Osteopenia 112793814 M85 .80 Alcohol co nsumption screening 922527642 Z13.89 Screening for osteoporosis 209421452 Z13.820 Normal grief reaction 27 6870220 F43.20 [id number] Rajiv Red MD OFFICE [address] [place] [address] [address] [place] [address] 4 01/10/2020 14:48:12 01/10/2020 15:05:35 Vitamin deficiency 37494315 E56.9 Immunization due 2796403 08 Z28.3 [id number] Rajiv Red MD OFFICE [address] [place] [address] [address] [place] [address] 4 02/21/2020 10:57:27 02/21/2020 12:11:59 Essential hypertension 31699393 I10 Supraventr icular tachycardia 5703367 I47.1 Cyst of kidney 333172356 N28.1 Pulmonary hypertension 71190272 I27.20 Osteopenia 426457835 M85 .80 Long-term drug therapy 431853873 Z79.899 Steatosis of liver 1007 K76.0 Gallstone 073583475 K80. 20 Computed t omography result abnormal 843494763 R93.89 Body mass index 25-29 - overweight 373579886 Z68.29 Vitamin deficiency 85076 002 E56.9 [id number] Rajiv Red MD OFFICE [address] [place] [address] [address] [place] [address] 4 03/11/2020 11:34:04 03/11/2020 12:10:06 Disorder of vitamin B12 859394773 E53.8 [id number] Rajiv Red MD OFFICE [address] [place] [address] [place] [address] 4 04/03/2020 10:24:31 04/03/2020 11:24:03 Depression screening 006881944 Z13.89 Essential hypertension 74885177 I10 Supraventr icular tachycardia 1327684 I47.1 Cyst of kidney 756861299 N28.1 Long-term drug therapy 934300111 Z79.899 Pulmonary hypertension 83095996 I27.20 Steatosis of liver 1007 K76.0 Computed t omography result abnormal 150612862 R93.89 Body mass index 25-29 - overweight 787684136 Z68.29 [id number] Rajiv Red MD OFFICE [address] [place] [address] [address] [place] [address] 04/21/2020 09:07:20 04/21/2020 09:18:52 Disorder of vitamin B12 759158867 E53.8 [id number] Rajiv Red MD OFFICE [address] [place] [address] [address] [place] [address] 05/05/2020 10:38:03 05/05/2020 12:05:36 Essential hypertension 51162702 I10 Supraventr icular tachycardia 2334606 I47.1 Cyst of kidney 637816125 N28.1 Pulmonary hypertension 11412383 I27.20 Steatosis of liver 1007 K76.0 Computed t omography result abnormal 693313110 R93.89 Long-term drug therapy 406035575 Z79.899 Body mass index 25-29 - overweight 012091534 Z68.29 Chronic ob structive pulmonary disease 62122657 J44.9 Chronic ki dney disease stage 3 769046216 N18.31 [id number] Rajiv Red MD OFFICE [address] [facility] [address] [place] [address] 05/06/2020 16:22:20 05/06/2020 16:32:54 Adult health examination 736533575 Z00.00 [id number] Rajiv Red MD OFFICE [address] [facility] [address] [place] [address] 05/07/2020 10:07:49 05/07/2020 11:02:47 Essential hypertension 99352937 I10 Long-term drug therapy 685147987 Z79.899 Exposure t o coronavirus infection 481341151 Z20.828 I wore proper PPE to examine patient. Limited physical exam due to COVID-19 infection to limit transmissi on of disease. Was able to contain enough informatio n by data review and discussion . Supraventr icular tachycardia 4950539 I47.1 Cyst of kidney 754005837 N28.1 Body mass index 25-29 - overweight 667258153 Z68.29 [id number] Rajiv Red MD OFFICE [address] [place] [address] 05/29/2020 10:46:02 05/29/2020 12:10:28 Long-term drug therapy 086736315 Z79.899 Body mass index 25-29 - overweight 221919454 Z68.29 Essential hypertension 62027173 I10 Supraventr icular tachycardia 6439905 I47.1 COVID-19 063544784 U07.1 [id number] Raijv Red MD OFFICE [address] [place] [address] 06/13/2020 14:41:47 06/13/2020 15:00:46 Active or passive immunization 354570818 Z23 [id number] Rajiv Red MD OFFICE [address] [place] [address] 06/23/2020 11:17:43 06/23/2020 12:12:30 Essential hypertension 29971075 I10 Cyst of kidney 652598258 N28.1 Pulmonary hypertension 78280721 I27.20 Computed t omography result abnormal 100523505 R93.89 Chronic ki dney disease stage 3 473072549 N18.31 Long-term drug therapy 492345488 Z79.899 Body mass index 25-29 - overweight 507855667 Z68.29 Disorder o f lipid metabolism 160171177 E78.9 Microscopic hematuria 19 9314703 R31.29 [id number] Rajiv Red MD OFFICE [address] [facility] [address] [place] [address] 01/05/2021 10:30:30 01/05/2021 11:25:07 Cyst of kidney 369212742 N28.1 renal ultrasound from her 2020 much improved Pulmonary hypertension 69547998 I27.20 likely result of COPD noted on echo Chronic ki dney disease stage 3 129874361 N18.31 follow-up labs avoid nephrotoxi ns Essential hypertension 02014779 I10 on olmesartan no dizziness or syncope Disorder o f lipid metabolism 471354527 E78.9 no myalgias or arthralgia s continue current approach Chronic ob structive pulmonary disease 35749213 J44.9 doing well no recent exacerbati on did give Covid 19 vaccine Disorder o f vitamin B12 849755391 E53.8 Body mass index 30+ - obesity 263260210 Z68.30 Long-term drug therapy 177741664 Z79.899 Fatigue 95059423 R53.83 Venous varices 144704329 I83.[address] Melo vascular surgery [id number] Rajiv Red MD OFFICE [address] [facility] [address] [place] [address] 03/02/2021 10:21:34 03/02/2021 11:15:57 Pulmonary hypertension 60520217 I27.20 03/02/21 Continue to follow with pulmonolog y for monitoring Disorder o f lipid metabolism 514530196 E78.9 03/02/21 Triglyceri prabhakar are elevated at 119 and LDL is elevated at 1 discussed low sugar, low-carb diet and routine exercise for improvemen t of these levels. Patient understood and agreed. Long-term drug therapy 193417082 Z79.899 Essential hypertension 68328850 I10 03/02/21 Blood pressure stable at today's visit with a reading of 122/78. Chronic ki dney disease stage 3 209325169 N18.31 03/02/21 Stable at this time. Continue to monitor with interval labs Cyst of kidney 002281588 N28.1 03/02/21 renal ultrasound from her 2020 much improved Body mass index 30+ - obesity 740828405 Z68.30 Chronic ob structive pulmonary disease 17678899 J44.9 03/02/21 Stable at this time. Continue to follow with pulmonolog y Disorder o f vitamin B12 076681611 E53.8 03/02/21 continue supplement ation Venous varices 208823431 I83.92 03/02/21 saw vascular surgery on 01/12/2021 for venous varices they recommende d conservati ve therapy at this time. Patient will keep legs elevated and wear compressio n stockings at this time. She will continue to follow with vascular surgery at this time. At [facility] risk for falls 643834192 Z91.81 declined PT Multiple n odules of lung 191332178 R91.8 03/02/21 saw pulmonolog y on 01/26/2021 . Patient has a history of lung nodules and recent chest CT showed no changes to the nodules at this time. She will continue to follow with pulmonolog y and will continue to have chest CTs annually. [id number] Rajiv Red MD OFFICE [address] [place] [address] [address] [place] [address] 04/09/2021 13:55:51 04/09/2021 14:43:32 Disorder of vitamin B12 457579838 E53.8 Patient continue with B12 injections . She is doing well at this time. Continue with the regimen. Pulmonary hypertension 86328098 I27.20 Stable. Patient denies any cough shortness of breath or chest pain. Body mass index 30+ - obesity 950709264 Z68.30 Disorder o f lipid metabolism 146731235 E78.9 Stable. Although total cholestero l and HDL within the range, patient has high triglyceri prabhakar at 192 and LDL 101. She is taking no statin at this time. Patient declines further medical therapy. Long-term drug therapy 936489181 Z79.899 Essential hypertension 86651002 I10 Stable. Blood pressure today 116/64 at goal. Continue on present therapy. Chronic ki dney disease stage 3 744556875 N18.31 Stable. Her last GFR creatinine 1.01 and GFR 51 stable at this time we will continue monitoring . Patient is asymptomat ic at this time Acute cystitis 88128849 N30.00 New onset. Patient very symptomati c for the past few days. Patient advised to stop medical therapy on Macrobid milligrams twice daily for the next 5 days. I also advised on increase the water cranberry juice probiotics and avoid any irritants such as alcohol or coffee. Patient verbalizes understand ing. We will send out for culture Depression screening 171 745700 Z13.31 [id number] Rajiv Red MD OFFICE [address] [place] [address] [address] [place] [address] 05/20/2021 13:32:00 05/20/2021 14:38:07 Disorder of vitamin B12 871065211 E53.8 03/02/21 continue supplement ation [id number] Rajiv Red MD OFFICE [address] [place] [address] [address] [place] [address] 05/28/2021 13:46:18 05/28/2021 15:22:50 Pulmonary hypertension 26248727 I27.20 05/28/21 stable. continue to monitor for symptoms Body mass index 30+ - obesity 889619898 Z68.30 05/28/21 continue to work on weight reduction Disorder o f lipid metabolism 748887052 E78.9 05/28/21 Not currently on statin therapy. Continue to control with diet and exercise Long-term drug therapy 423405845 Z79.899 Essential hypertension 85030914 I10 05/28/21 Blood pressure stable today with a reading of 128/70. Chronic ki dney disease stage 3 197676081 N18.31 05/28/21 stable. continue to monitor with interval labs Cyst of kidney 121029029 N28.1 05/28/21 continues to follow with Dr. Feliz from urology who monitors it. She also informs me that she has an appointmen t coming up with him at the beginning of June. Acute cystitis 27842565 N30.00 05/28/21 Resolved New onset. Patient very symptomati c for the past few days. Patient advised to stop medical therapy on Macrobid milligrams twice daily for the next 5 days. I also advised on increase the water cranberry juice probiotics and avoid any irritants such as alcohol or coffee. Patient verbalizes understand ing. We will send out for culture Disorder o f vitamin B12 712371039 E53.8 05/28/21 continue supplement ation Patient continue with B12 injections . She is doing well at this time. Continue with the regimen. Multiple n odules of lung 164558349 R91.8 05/28/21 continue to follow with Dr. Rodriguez with pulmonolog y for monitoring 03/02/21 saw pulmonolog y on 01/26/2021 . Patient has a history of lung nodules and recent chest CT showed no changes to the nodules at this time. She will continue to follow with pulmonolog y and will continue to have chest CTs annually. Chronic ob structive pulmonary disease 56819405 J44.9 05/28/21 Stable at this time. Continue to follow with Dr. Rodriguez with pulmonolog y Venous varices 461814477 I83.92 05/28/21 Continues to follow with Dr. Melo for monitoring 03/02/21 saw vascular surgery on 01/12/2021 for venous varices they recommende d conservati ve therapy at this time. Patient will keep legs elevated and wear compressio n stockings at this time. She will continue to follow with vascular surgery at this time. Fatigue 20947368 R53.83 [id number] Rajiv Red MD OFFICE [address] [facility] [address] [place] [address] 06/16/2021 14:41:05 06/16/2021 15:00:52 Disorder of vitamin B12 715289257 E53.8 05/28/21 continue supplement ation Patient continue with B12 injections . She is doing well at this time. Continue with the regimen. [id number] Rajiv Red MD OFFICE [address] [facility] [address] [place] [address] 09/23/2021 13:15:01 09/23/2021 13:47:12 Pulmonary hypertension 84718475 I27.20 Body mass index 30+ - obesity 785834702 Z68.30 09/22/21 continue to work on weight reduction Disorder o f lipid metabolism 027583392 E78.9 09/22/21 Not currently on statin therapy. Continue to control with diet and exercise Long-term drug therapy 566242922 Z79.899 Essential hypertension 26786408 I10 09/22/21 Continue current antihypert ensive medication regimen Chronic ki dney disease stage 3 649444085 N18.31 09/22/21 Stable. Continue to monitor with interval labs Cyst of kidney 134638097 N28.1 09/22/21 Continue to follow with urology for monitoring 05/28/21 continues to follow with Dr. Feliz from urology who monitors it. She also informs me that she has an appointmen t coming up with him at the beginning of June. Multiple n odules of lung 859584632 R91.8 09/22/21 continue to follow with Dr. Rodriguez with pulmonolog y for monitoring 03/02/21 saw pulmonolog y on 01/26/2021 . Patient has a history of lung nodules and recent chest CT showed no changes to the nodules at this time. She will continue to follow with pulmonolog y and will continue to have chest CTs annually. Chronic ob structive pulmonary disease 33798919 J44.9 09/22/21 Stable at this time. Continue to follow with Dr. Rodriguez with pulmonolog y Venous varices 124227158 I83.92 09/22/21 Continues to follow with Dr. Melo for monitoring 03/02/21 saw vascular surgery on 01/12/2021 for venous varices they recommende d conservati ve therapy at this time. Patient will keep legs elevated and wear compressio n stockings at this time. She will continue to follow with vascular surgery at this time. Disorder o f vitamin B12 746849916 E53.8 09/22/21 continue supplement ation Patient continue with B12 injections . She is doing well at this time. Continue with the regimen. [id number] LIAM CARBALLO OFFICE [address] [facility] [address] [place] [address] 01/01/2022 10:02:06 01/01/2022 11:39:22 Essential hypertension [id number] I10 01/01/2022 : Asymptomat ic. Stable. Controlled . Continue current medication regimen. Maintain low-sodium diet. 09/22/21 Continue current antihypert ensive medication regimen Multiple n odules of lung 774542220 R91.8 01/01/2022 : Patient continues to be under the care of her pulmonolog ist, Dr. Rodriguez. Patient has upcoming appointmen t with pulmonolog y in the next few weeks.. We will follow along. 09/22/21 continue to follow with Dr. Rodriguez with pulmonolog y for monitoring 03/02/21 saw pulmonolog y on 01/26/2021 . Patient has a history of lung nodules and recent chest CT showed no changes to the nodules at this time. She will continue to follow with pulmonolog y and will continue to have chest CTs annually. Disorder o f lipid metabolism 129557840 E78.9 01/01/2022 : Asymptomat ic. No red flag symptoms. Continue current regimen. Recheck lipid panel. 09/22/21 Not currently on statin therapy. Continue to control with diet and exercise Chronic ob structive pulmonary disease 13006557 J44.9 01/01/2022 : Mildly worsening dyspnea on exertion since returning recently from [facility]. Patient has upcoming appointmen t with pulmonolog y in a few weeks. In the meantime, patient's Proventil is refilled. 09/22/21 Stable at this time. Continue to follow with Dr. Rodriguez with pulmonolog y Venous varices 998010784 I83.92 01/01/2022 : Patient seen by vascular surgeon. Procedure with intravenou s wire unsuccessf ul due to limited access. Patient was offered referral back to vascular surgeon here locally to try other modalities . 09/22/21 Continues to follow with Dr. Melo for monitoring 03/02/21 saw vascular surgery on 01/12/2021 for venous varices they recommende d conservati ve therapy at this time. Patient will keep legs elevated and wear compressio n stockings at this time. She will continue to follow with vascular surgery at this time. Chronic ki dney disease stage 3 515584322 N18.31 01/01/2022 : Stable. Stay well-hydra ivonne. Avoid nephrotoxi ns. CMP. 09/22/21 Stable. Continue to monitor with interval labs Body mass index 30+ - obesity 222887510 Z68.30 09/22/21 continue to work on weight reduction Long-term drug therapy 916717373 Z79.899 Asthma 410023089 J45.90 9 Alcohol co nsumption screening 902857291 Z13.89 Rheumatoid arthritis 698 41763 M06.9 01/01/2022 : Recently seen by rheumatkiarra howard in [facility]. received corticoste roid injection to the right wrist. Patient notes marked improvemen t. Patient also notes injection bilateral knees also marked improvemen t. [id number] LIAM CARBALLO OFFICE [address] [place] [address] 01/13/2022 13:25:52 01/13/2022 14:45:07 Disorder of vitamin B12 544818962 E53.8 [id number] LIAM CARBALLO OFFICE [address] [place] [address] 02/02/2022 10:21:39 02/02/2022 11:40:13 Essential hypertension 17807728 I10 02/02/2022 : Stable. Controlled . Asymptomat ic. Continue current medication regimen. 01/01/2022 : Asymptomat ic. Stable. Controlled . Continue current medication regimen. Maintain low-sodium diet. 09/22/21 Continue current antihypert ensive medication regimen Multiple n odules of lung 831199530 R91.8 02/02/2022 : Recently seen by pulmonolog ist. Consult note reviewed at today's visit. Recent CT chest stable. Patient doing well overall. Notes that she has been sent for an ultrasound , which is not in the pulmonolog y note. Patient notes she is scheduled to undergo this tomorrow. We will request records from follow-up. 01/01/2022 : Patient continues to be under the care of her pulmonolog ist, Dr. Rodriguez. Patient has upcoming appointmen t with pulmonolog y in the next few weeks.. We will follow along. 09/22/21 continue to follow with Dr. Rodriguez with pulmonolog y for monitoring 03/02/21 saw pulmonolog y on 01/26/2021 . Patient has a history of lung nodules and recent chest CT showed no changes to the nodules at this time. She will continue to follow with pulmonolog y and will continue to have chest CTs annually. Disorder o f lipid metabolism 137512551 E78.9 02/02/2022 : Remains asymptomat ic. Lipid panel reviewed. Well-contr olled at goal. Continue current medication regimen. 01/01/2022 : Asymptomat ic. No red flag symptoms. Continue current regimen. Recheck lipid panel. 09/22/21 Not currently on statin therapy. Continue to control with diet and exercise Chronic ki dney disease stage 3 851731039 N18.31 02/02/2022 : Improved. EGFR now at 58. Patient is advised to stay well-hydra ivonne and avoid nephrotoxi ns. 01/01/2022 : Stable. Stay well-hydra ivonne. Avoid nephrotoxi ns. CMP. 09/22/21 Stable. Continue to monitor with interval labs Chronic ob structive pulmonary disease 22179666 J44.9 02/02/2022 : Stable. Recently seen by pulmonolog y. No changes. Doing well overall. Follow-up with pulmonolog y as scheduled, will follow along. 01/01/2022 : Mildly worsening dyspnea on exertion since returning recently from [facility]. Patient has upcoming appointmen t with pulmonolog y in a few weeks. In the meantime, patient's Proventil is refilled. 09/22/21 Stable at this time. Continue to follow with Dr. Rodriguez with pulmonolog y Body mass index 30+ - obesity 745458787 Z68.30 09/22/21 continue to work on weight reduction Advance care planning 71 5229562 Z71.89 has plan/dnr Epigastric pain 03733649 R10.13 02/02/2022 : New onset. Patient notes that she is experience d this for over 20 years . No associatio n with food or lying down. This can be seen in the clinic setting of esophageal spasm. Stop famotidine . Follow-up in 28 days. [id number] Rajiv Red MD OFFICE [address] [facility] [address] [place] [address] 02/17/2022 15:21:41 02/17/2022 15:52:45 Disorder of vitamin B12 628751455 E53.8 05/28/21 continue supplement ation Patient continue with B12 injections . She is doing well at this time. Continue with the regimen. [id number] LIAM CARBALLO OFFICE [address] [facility] [address] [place] [address] 03/02/2022 11:08:37 03/02/2022 12:15:43 Essential hypertension 14951019 I10 03/02/2022 : Well-contr olled stable. At goal. Continue current medication regimen. Maintain low-sodium diet. 02/02/2022 : Stable. Controlled . Asymptomat ic. Continue current medication regimen. 01/01/2022 : Asymptomat ic. Stable. Controlled . Continue current medication regimen. Maintain low-sodium diet. 09/22/21 Continue current antihypert ensive medication regimen Multiple n odules of lung 103058478 R91.8 02/02/2022 : Recently seen by pulmonolog ist. Consult note reviewed at today's visit. Recent CT chest stable. Patient doing well overall. Notes that she has been sent for an ultrasound , which is not in the pulmonolog y note. Patient notes she is scheduled to undergo this tomorrow. We will request records from follow-up. 01/01/2022 : Patient continues to be under the care of her pulmonolog ist, Dr. Rodriguez. Patient has upcoming appointmen t with pulmonolog y in the next few weeks.. We will follow along. 09/22/21 continue to follow with Dr. Rodriguez with pulmonolog y for monitoring 03/02/21 saw pulmonolog y on 01/26/2021 . Patient has a history of lung nodules and recent chest CT showed no changes to the nodules at this time. She will continue to follow with pulmonolog y and will continue to have chest CTs annually. Disorder o f lipid metabolism 963716247 E78.9 02/02/2022 : Remains asymptomat ic. Lipid panel reviewed. Well-contr olled at goal. Continue current medication regimen. 01/01/2022 : Asymptomat ic. No red flag symptoms. Continue current regimen. Recheck lipid panel. 09/22/21 Not currently on statin therapy. Continue to control with diet and exercise Chronic ki dney disease stage 3 057649219 N18.31 03/02/2022 : CMP reviewed. EGFR 57. Stable. Patient is reminded to avoid nephrotoxi ns and stay very well-hydra ivonne. We discussed that she is to avoid ibuprofen Advil naproxen Aleve Motrin. 02/02/2022 : Improved. EGFR now at 58. Patient is advised to stay well-hydra ivonne and avoid nephrotoxi ns. 01/01/2022 : Stable. Stay well-hydra ivonne. Avoid nephrotoxi ns. CMP. 09/22/21 Stable. Continue to monitor with interval labs Chronic ob structive pulmonary disease 34516444 J44.9 03/02/2022 : All stable at today's visit. No recent acute exacerbati on. Followed by pulmonolog y. 02/02/2022 : Stable. Recently seen by pulmonolog y. No changes. Doing well overall. Follow-up with pulmonolog y as scheduled, will follow along. 01/01/2022 : Mildly worsening dyspnea on exertion since returning recently from [facility]. Patient has upcoming appointmen t with pulmonolog y in a few weeks. In the meantime, patient's Proventil is refilled. 09/22/21 Stable at this time. Continue to follow with Dr. Rodriguez with pulmonolog y Body mass index 30+ - obesity 151628621 Z68.30 03/02/2022 : Patient will benefit by eating more fruits and vegetables , fish and poultry; while strictly limiting intake of carbohydra starr, fried foods, fatty foods, sugary foods, and red meats. Patient will benefit from exercise for a minimum of 30 minutes/da y, for at least 3 days/week. 09/22/21 continue to work on weight reduction Advance care planning 71 5876968 Z71.89 has plan/dnr Epigastric pain 31249297 R10.13 03/02/2022 : Resolved with famotidine . Continue current medication regimen. Avoid triggers. 02/02/2022 : New onset. Patient notes that she is experience d this for over 20 years . No associatio n with food or lying down. This can be seen in the clinic setting of esophageal spasm. Stop famotidine . Follow-up in 28 days. 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 The plan is to continue with conservati ve care compressio n stockings and elevation of legs. 01/01/2022 : Patient seen by vascular surgeon. Procedure with intravenou s wire unsuccessf ul due to limited access. Patient was offered referral back to vascular surgeon here locally to try other modalities . 09/22/21 Continues to follow with Dr. Melo for monitoring 03/02/21 saw vascular surgery on 01/12/2021 for venous varices they recommende d conservati ve therapy at this time. Patient will keep legs elevated and wear compressio n stockings at this time. She will continue to follow with vascular surgery at this time. Cyst of kidney 146699450 N28.1 Osteoarthr itis of left knee joint 7063749242 11600 M17.12 03/02/2022 : Patient reports longstandi ng bilateral knee pain. He asks about hyaluronic acid injections . Long discussion about the types of osteoarthr itis and the grading. We will get radiologic al imaging to make further assessment recommenda tions. Osteoarthr itis of right knee joint 2525702228 25132 M17.11 03/02/2022 : Patient reports longstandi ng bilateral knee pain. He asks about hyaluronic acid injections . Long discussion about the types of osteoarthr itis and the grading. We will get radiologic al imaging to make further assessment recommenda tions. [id number] Rajiv Red MD OFFICE [address] [facility] [address] [place] [address] 03/22/2022 13:32:44 03/22/2022 13:50:48 Serum vitamin B12 below reference range 472181564 R79.89 [id number] SANJEEV BILL OFFICE [address] [facility] [address] [place], [place] [address] 05/27/2022 14:28:42 05/27/2022 15:25:27 Chronic obstructive pulmonary disease 86750275 J44.9 05/27/22 stable inhalers good result dr rodriguez follows ct pulm no issues utd 05/28/21 Stable at this time. Continue to follow with Dr. Rodriguez with pulmonolog y Essential hypertension 80780368 I10 05/27/22 weight down several pounds bp good 05/28/21 Blood pressure stable today with a reading of 128/70. Disorder o f vitamin B12 695454427 E53.8 05/27/22 today b12 05/28/21 continue supplement ation Patient continue with B12 injections . She is doing well at this time. Continue with the regimen. Venous varices 407424146 I83.92 05/27/22 stable no issues 05/28/21 Continues to follow with Dr. Melo for monitoring 03/02/21 saw vascular surgery on 01/12/2021 for venous varices they recommende d conservati ve therapy at this time. Patient will keep legs elevated and wear compressio n stockings at this time. She will continue to follow with vascular surgery at this time. Body mass index 30+ - obesity 474816204 Z68.30 05/28/21 continue to work on weight reduction Cyst of kidney 245041673 N28.1 05/27/22 leeroy appt pending per patient 05/28/21 continues to follow with Dr. Feliz from urology who monitors it. She also informs me that she has an appointmen t coming up with him at the beginning of June. Disorder o f lipid metabolism 528895831 E78.9 05/27/22 labs noted young 87 05/28/21 Not currently on statin therapy. Continue to control with diet and exercise Chronic ki dney disease stage 3 744787311 N18.31 05/27/22 stable gfr good 05/28/21 stable. continue to monitor with interval labs Multiple n odules of lung 354154046 R91.8 05/27/22 pulm 05/28/21 continue to follow with Dr. Rodriguez with pulmonolog y for monitoring 03/02/21 saw pulmonolog y on 01/26/2021 . Patient has a history of lung nodules and recent chest CT showed no changes to the nodules at this time. She will continue to follow with pulmonolog y and will continue to have chest CTs annually. Advance care planning 71 0914338 Z71.89 has plan/dnr Epigastric pain 84680751 R10.13 05/27/22 02/02/2022 : New onset. Patient notes that she is experience d this for over 20 years . No associatio n with food or lying down. This can be seen in the clinic setting of esophageal spasm. Stop famotidine . Follow-up in 28 days. Osteoarthr itis of left knee joint 1616016955 13368 M17.12 3/16/23 nsaid ortho 03/02/2022 : Patient reports longstandi ng bilateral knee pain. He asks about hyaluronic acid injections . Long discussion about the types of osteoarthr itis and the grading. We will get radiologic al imaging to make further assessment recommenda tions. Osteoarthr itis of right knee joint 0850433179 37747 M17.11 05/27/22 ortho 03/02/2022 : Patient reports longstandi ng bilateral knee pain. He asks about hyaluronic acid injections . Long discussion about the types of osteoarthr itis and the grading. We will get radiologic al imaging to make further assessment recommenda tions. Serum vijaya min B12 below reference range 754584639 R79.89 lot 2270 exp 10/2023 right deltoid , clinic provide , 05/27/2022 mm 3:23PM [facility] [id number] Rajiv Red MD OFFICE [address] [facility] [address] [place] [address] 06/10/2022 13:21:04 06/10/2022 14:55:04 Chronic obstructive pulmonary disease 01723347 J44.9 06/10/22 05/27/22 stable inhalers good result dr rodriguez follows ct pulm no issues utd 05/28/21 Stable at this time. Continue to follow with Dr. Rodriguez with pulmonolog y Essential hypertension 48240797 I10 06/10/22 05/27/22 weight down several pounds bp good 05/28/21 Blood pressure stable today with a reading of 128/70. Disorder o f vitamin B12 522758100 E53.8 06/10/22 05/27/22 today b12 05/28/21 continue supplement ation Patient continue with B12 injections . She is doing well at this time. Continue with the regimen. Venous varices 598417714 I83.92 05/27/22 stable no issues 05/28/21 Continues to follow with Dr. Melo for monitoring 03/02/21 saw vascular surgery on 01/12/2021 for venous varices they recommende d conservati ve therapy at this time. Patient will keep legs elevated and wear compressio n stockings at this time. She will continue to follow with vascular surgery at this time. Body mass index 30+ - obesity 601285491 Z68.30 06/10/22 05/28/21 continue to work on weight reduction Cyst of kidney 555038883 N28.1 06/10/22 05/27/22 leeroy appt pending per patient 05/28/21 continues to follow with Dr. Feliz from urology who monitors it. She also informs me that she has an appointmen t coming up with him at the beginning of June. Disorder o f lipid metabolism 087012838 E78.9 06/10/22 05/27/22 labs noted young 87 05/28/21 Not currently on statin therapy. Continue to control with diet and exercise Chronic ki dney disease stage 3 612761038 N18.31 06/10/22 05/27/22 stable gfr good 05/28/21 stable. continue to monitor with interval labs Multiple n odules of lung 708322614 R91.8 06/10/22 05/27/22 pulm 05/28/[address] continue to follow with Dr. Rodriguez with pulmonolog y for monitoring 03/02/21 saw pulmonolog y on 01/26/2021 . Patient has a history of lung nodules and recent chest CT showed no changes to the nodules at this time. She will continue to follow with pulmonolog y and will continue to have chest CTs annually. Advance care planning 71 4317336 Z71.89 has plan/dnr Epigastric pain 93755524 R10.13 06/10/22 02/02/2022 : New onset. Patient notes that she is experience d this for over 20 years . No associatio n with food or lying down. This can be seen in the clinic setting of esophageal spasm. Stop famotidine . Follow-up in 28 days. Osteoarthr itis of left knee joint 7589366232 78340 M17.12 06/10/22 05/27/22 nsaid ortho 03/02/2022 : Patient reports longstandi ng bilateral knee pain. He asks about hyaluronic acid injections . Long discussion about the types of osteoarthr itis and the grading. We will get radiologic al imaging to make further assessment recommenda tions. Osteoarthr itis of right knee joint 0540675004 75202 M17.11 06/10/22 05/27/22 ortho 03/02/2022 : Patient reports longstandi ng bilateral knee pain. He asks about hyaluronic acid injections . Long discussion about the types of osteoarthr itis and the grading. We will get radiologic al imaging to make further assessment recommenda tions. Serum vijaya min B12 below reference range 572632578 R79.89 lot 2270 exp 10/2023 right deltoid , clinic provide , 05/27/2022 mm 3:23PM [employer] Diabetes m ellitus screening 895320032 Z13.1 Geriatric screening status 849157346 Z13.9 Pneumonia 125269795 J18. 9 Acute hypo xemic respiratory failure 591148706 J96.01 443327 Rajiv Red MD OFFICE [address] [facility] [address] [place] [address] 06/25/2022 10:24:27 06/25/2022 10:35:31 Disorder of vitamin B12 407924594 E53.8 06/25/22 06/10/22 05/27/22 today b12 05/28/21 continue supplement ation Patient continue with B12 injections . She is doing well at this time. Continue with the regimen. Health Concerns Section Related Observation LastModified by Organization Detai ls LastModified Time None Recorded Concern Status LastModified by Organization Details LastModified Time None Recorded Advance Directives Directive Y: Payers Encounter Date Sequence Insurance Name Policy Number Policy Azul Covered Member ID Azul Member ID Guarantor Name 03/02/2022 1 [employer] (MEDICARE REPLACEMENT/A DVANTAGE - PPO) Raleigh Scheehser [id number] Raleigh Scheehser 03/22/2022 1 [facility] (MEDICARE REPLACEMENT/A DVANTAGE - HMO) [id number] Raleigh Scheehser [id number] Raleigh Scheehser 05/27/2022 1 [facility] (MEDICARE REPLACEMENT/A DVANTAGE - PPO) [id number] Raleigh A Scheehser [id number] Raleigh Scheehser 06/10/2022 1 [facility] (MEDICARE REPLACEMENT/A DVANTAGE - PPO) [id number] Raleigh A Scheehser [id number] Raleigh Scheehser 06/25/2022 1 [facility] (MEDICARE REPLACEMENT/A DVANTAGE - PPO) [id number] Gilda A Scheehser [id number] Gilda Scheehser Notes Date Note Type Note Provider Name and Address Organization Details Recorded Time 2 text/html This a very pleasant 86-year-old female past medical history of epigastric pain, hypertension, dyslipidemia and CKD stage III; presents today to follow-up for recent lab work as well as for epigastric pain. Previous visit, patient was started on famotidine. She notes that epigastric pain has completely resolved with follow-up with me. No further complaints. Patient also recently seen by vascular surgeon for varicose veins. The plan is to be conservative to continue to wear compression stockings and elevate the patient's legs that she is able. Should varicose vein symptomatology become more problematic patient, she is to contact vascular surgeon for further options. Patient also continues to see rheumatology for her rheumatoid arthritis. Notes recently started on Medrol 8 mg p.o. daily. Notes that her pain is gradually improving. She is placed on stepdown therapy. At today's visit, the patient does report longstanding bilateral knee pain. She asks about hyaluronic acid injections. Long discussion. We discussed that in the right setting, these can be very helpful. We discussed the Kellgren-Boubacar. Of scarring for osteoarthritis of the knee for hyaluronic acid injections. We reviewed the patient's most recent labs again at today's visit. She is reminded to stay very well-hydrated and avoid nephrotoxins. CMP kidney function are stable for the patient. LIAM CARBALLO [address] [facility] [address], [place], [address], [facility] - [facility], [facility] 03/02/2022 12:39:07 3 text/html here for annualsees dr hanna for lungs no sx on triple therapy---neb machine at [facility] cp no cough no sobmamm yearlyon meds for RA on hydroxychlorquine dr goldman rheummadeline abd pain SANJEEV BILL [place], [place] - [facility], [facility] 07/29/2022 09:33:51 3 text/html discharge 06/09/22admitted for exacerbation of copd with then pneumonia bilateral hypoxiarecords notedlabs okno cp some sob today not newon prednisone taper dc doxy cefdinirhere with daughter from [facility]/ with dr hanna on meds for RA on hydroxychlor[place]ine [place] [address] [facility] [address], [place], [address], [facility], [facility] 06/10/2022 15:47:31 3 text/html discharge 06/09/22admitted for exacerbation of copd with then pneumonia bilateral hypoxiarecords notedlabs okno cp some sob today not newon prednisone taper dc doxy cefdinirhere with daughter from [facility]/ with dr hanna on meds for RA on hydroxychlor[place]ine [place] [address] [facility] [address], [place], [address], [facility], [facility] 06/25/2022 12:47:18 OBGyn Episode No OBEpisode recorded.
--- OUTSIDE RECORDS SUMMARY | 2024-05-01 09:14 | XMS_ITS ---
[facility] Address [address] [place] [address] Care Team Providers Care County Director Welfare Name Role Phone Hernandez CERVANTES, Paulo Primary Care Provider [phone] REASON FOR VISIT Medication refill Medications Medication SIG (Take, Route, Fr equency, Duration) Notes Start Date End Date Status Folic Acid 1 MG 1 tablet Orally Once a day for 90 days 01/19/2023 Active Encounters Encounter Location Date Provider Diagnosis [facility] [address] [place], [place] [id number] 03/15/2024 Paulo Ng Rheumatoid arthritis, involving unspecified site, unspecified whether rheumatoid factor present M06.9 Assessments Encounter Date Diagnosis (ICD Code) Assessment Notes Treat ment Notes Treatment Clinical Notes 03/15/2024 Rheumatoid arthritis, involving unspecified site, unspecified whether rheumatoid factor present (ICD-10 - M06.9) Plan Of Treatment Medication Medication Name Sig Start Date Stop Date Notes Folic Acid 1 MG 1 tablet Orally Once a day for 90 days 10/2022 Next Appt Details Provider Name:Paulo Ng , 06/22/2024 02:40:00 PM, [address], [place], [place], [id number], Progress Notes * Gilda CHAN ADOB:1935 (88 yo F)Acc No.[id number]:03/15/2024 Patient:?Gilda CHAN :1935???Age:88 Y???Sex:Female Address:[address] [place] [address] [address], [place] [address] * Refills? Refill Folic Acid Tablet, 1 MG, Orally, 90, 1 tablet, Once a day, 90 days, Refills=3 * true * Date:? 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
--- OUTSIDE RECORDS SUMMARY | 2024-05-01 09:14 | XMS_ITS | Continuity of Care Document ---
Author Organization [facility] A Address [address] [place] [id number] Phone Care Team Providers Care Swine Extension Field Specialist Name Role Phone Mesfin Stuart NP Unavailable Unavailable Allergies, Adverse Reactions, Alerts Substance Reaction Status Criticality Sulfa (Sulfonamide Antibiotics) Active No Information Medications Medication Instructions Dosage Effective Dates (start - stop) Status Comments METHOTREXATE (unknown strength) 12.5 mg once weekly for 12 weeks Not Available - Active METHOTREXATE (unknown strength) 15 mg once weekly for 12 weeks Not Available - Active hydroxychloroquine 200 mg tablet 1 tablet twice a day for 5 days - Active hydroxychloroquine 200 mg tablet 1 tablet twice a day for 90 days - Active hydroxychloroquine 200 mg tablet 1 tablet twice a day for 90 days - Active Advance Directives Directive Yes / No Effective Date File Name No Information Encounters Encounter Description Practice Location Reason(s) For Visit Diagnoses Date Provider Providers Copied on Encounter Demarcus Nichols MD PA, [address] [place] [address], [id number], [place] tel:[phone] Main Office Rheumatoid Arthritis (chief complaint) Rheumatoid arthritis with rheumatoid factor of multiple sites without organ or systems involvementChroni c fatigue, unspecifiedLong term (current) use of antimetabolite agentLong term use of immunosuppressant Immunodeficiency due to drugsEncounter for therapeutic drug level monitoringVenous insufficiency of lower extemity Sep-2 4 Sade Toure. [address] [place] [address], [id number] , [place]. tel: [phone] Demarcus WHEELER, [address] [place] [address], [id number], tel:[phone] [facility] Immunodeficiency due to drugsLong term (current) use of antimetabolite agentRheumatoid arthritis with rheumatoid factor of multiple sites without organ or systems involvementEncoun ter for therapeutic drug level monitoring 4 Sade Toure. [facility], [id number] , . tel: [phone] Demarcus WHEELER, [address] [place] [address], [id number], tel:[phone] [facility] Inflammatory polyarthropathyRh eumatoid arthritis with rheumatoid factor of multiple sites without organ or systems involvementLong term (current) use of antimetabolite agentImmunodefici ency due to drugs 3 Sade Toure. [address] [place] [address], [id number] , . tel: [phone] Demarcus WHEELER, [address] [place] [address], [id number], tel:[phone] [facility] No Information 3 Sade Toure. [address] [place] [address], [id number] , . tel: [phone] Demarcus WHEELER, [address] [place] [address], [id number], tel:[phone] [facility] Chronic fatigue, unspecifiedEncoun ter for therapeutic drug level monitoringImmunod eficiency due to drugsRheumatoid arthritis with rheumatoid factor of multiple sites without organ or systems involvement 3 Sade Toure. [facility] [address], [id number] , . tel: [phone] Demarcus WHEELER, [address] [place] [address], [id number], tel:[phone] [facility] Other [facility] (current) drug therapyChronic fatigue, unspecifiedChroni c obstructive pulmonary disease, unspecifiedRheuma toid arthritis with rheumatoid factor of multiple sites without organ or systems involvement 3 Sdae Toure. [address], [id number] , . tel: [phone] Demarcus WHEELER, [address] [place] [address], [id number], [place] tel:[phone] [facility] Other [facility] (current) drug therapyLong term (current) use of systemic steroidsChronic fatigue, unspecifiedRheuma toid arthritis with rheumatoid factor of multiple sites without organ or systems involvement 3 Sade Toure. [address], [id number] , [place]. tel: [phone] Demarcus WHEELER, [address] [place] [address], [id number], tel:[phone] [facility] No Information 3 Sade Toure. [address], [id number] , [place]. tel: [phone] Demarcus WHEELER, [address] [place] [address], [id number], tel:[phone] [facility] No Information 2 Sade Toure. [address], [id number] , [place]. tel: [phone] Demarcus WHEELER, [address], [id number], [place] tel:[phone] Main Office Pain in unspecified jointRheumatoid arthritis with rheumatoid factor of multiple sites without organ or systems involvementInflam matory polyarthropathyOt her termite exterminator helper (current) drug therapy 2 Sade Toure. [address], [id number] , [place]. tel: [phone] Demarcus WHEELER, [address], [id number], tel:[phone] Main Office Pain in unspecified jointPain in right kneeInflammatory polyarthropathyLo ng term (current) use of systemic steroids 2 Sade Toure. [address], [id number] , . tel: [phone] Demarcus WHEELER, [address], [id number], tel:[phone] [facility] No Information 9 Sade Toure. [address], [id number] , . tel: [phone] Family History Family Member Type Diagnosis Age At Onset Mother Problem (finding) Rheumatological or Auto immune disease Father Problem (finding) Rheumatological or Auto immune disease Payers Payer name Insurance type Covered libertarian ID Authoriza tion(s) No Information Social History Type Description Quantity Date Captured Comments Alcohol Use Details Unknown Caffeine Use Details Unknown Tobacco Use Status Smoking Status Unknown if ever smoked Non-Smoking Tobacco Use Details : No Details Available : No Details Available Sex Female Chief Complaint And Reason For Visit From encounter dated '12/05/2023 13:54'. Rheumatoid Arthritis (chief complaint). Description: Pain scale: 2/10. The primary symptoms reported include: pain and stiffness. The following symptoms are not reported: swelling. The patient assesses the interval disease activity as: stable. The locations affected since last visit are low back and right knee. Associated symptoms include fatigue. Pertinent negatives include fever, AM stiffness, change in vision, chest pain, changing cough, edema and abdominal pain. Reason For Referral Reason For Referral No Information History Of Present Illness Encounter Date Complaint History Of Prese nt Illness Rheumatoid Arthritis Pain scale: 2/10. The primary symptoms reported include: pain and stiffness. The following symptoms are not reported: swelling. The patient assesses the interval disease activity as: stable. The locations affected since last visit are low back and right knee. Associated symptoms include fatigue. Pertinent negatives include fever, AM stiffness, change in vision, chest pain, changing cough, edema and abdominal pain. 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 Patient Care Teams Name Effective Dates (start - stop) Status Members No Information
--- OUTSIDE RECORDS SUMMARY | 2024-05-01 09:15 | XMS_ITS | Data Portability ---
Author Organization [facility] Tomorrowishan Poliglota, [facility], [facility] Address [address] [place] [address] Care Team Providers Care Ad Operations Specialist Name Role Phone EVGENY RODRIGUEZ Primary Care Provider [phone] EVGENY RODRIGUEZ Referring Provider EVGENY RODRIGUEZ [facility] RAJIV CARDONA Primary Care Provider [phone] Assessment No assessment recorded. Plan of Treatment Reminders Order Date Submit Date Provider Last Modified By Organization Details Last Modified Time Details Appointments ESTABL ISHED OV 15 2024 02:45P M Evgeny Rodriguez MD Not available Not available Not available Lab None record ed. Referral pulmon ologis t referr al 2023 024 [email or web address] [facility], [address], [place], [address], 07/11/2023 16:11:05 Procedures pulmon venu stress test, simple (PROC) 2021 022 [email or web address] In-House Test, For Internal Use Only, Do Not Delete/merge, [id number] 01/26/2022 11:54:35 Surgeries None record ed. Imaging XR, chest, 2 view 2023 024 [facility], [facility], All Locations, [place], [address], 07/18/2023 19:53:31 CT, chest, w/o contra st 2022 024 [email or web address] o [facility] ([facility]), [address], [address], [place], [address], 07/01/2023 15:17:30 CT, chest, w/o contra st - PLEASE CALL RAMY Leonardo TO [place] LE APPT THANK YOU 2021 023 [facility], [facility], All Locations, [place], [address], 06/01/2023 10:49:10 US, echoca rdiogr am 2021 022 [facility], [facility], All Locations, [place], [address], 02/07/2022 18:14:33 Medication Orders torsem tea 10 mg tablet 2023 024 [facility], [address], [place], [address], 07/08/2023 13:10:13 Patient TargetsNo targets recorded. Patient Instructions Encounter Date Encounter Id Patient Instructions Last Modified By Organization Details Last Modified Time 01/26/2022 [id number] complete PFT w/ post bronchodilator spirometry* JONNATHAN Not available 01/31/2023 08:01:25 Patient understands instructions and will seek medical attention if symptoms worsen as directed. latoya Not available 01/21/2022 16:11:09 06/18/2022 [id number] Patient understands instructions and will seek medical attention if symptoms worsen as directed. izzy Not available 06/10/2022 13:09:06 02/07/2023 [id number] Patient understands instructions and will seek medical attention if symptoms worsen as directed. [email or web address] Not available 02/02/2023 09:01:25 07/08/2023 [id number] pneumonia: care instructions fatimah Not available 07/08/2023 13:10:13 Patient understands instructions and will seek medical attention if symptoms worsen as directed. [email or web address] Not available 07/06/2023 10:35:56 07/19/2023 [id number] Patient understands instructions and will seek medical attention if symptoms worsen as directed. [email or web address] Not available 07/13/2023 10:35:20 Reason for Referral [facility] Referral for C hronic obstructive pulmonary disease Referring Physician: Evgeny Rodriguez, Internal Medicine, Encounter Date: 07/08/2023 Results Created Date Observation Date Name Description Value Unit Range Abnormal Flag Note LastModifiedBy Organization Detail LastModifiedTime 01/27/2001/26/2022 pulmo nary stres s test, simpl e (PROC ) Unknown Analyte 95 Not Available In-[facility] se Test For Internal Use Only, Do Not Delete/merge, [id number] 01/26/2022 11:02:55 01/27/20 22 01/26/2022 pulmo nary stres s test, simpl e (PROC ) Unknown Analyte 81 Not Available In-[facility] se Test For Internal Use Only, Do Not Delete/merge, [id number] 01/26/2022 11:02:55 01/27/20 22 01/26/2022 pulmo nary stres s test, simpl e (PROC ) Unknown Analyte 0 Not Available In-[facility] se Test For Internal Use Only, Do Not Delete/merge, [id number] 01/26/2022 11:02:55 01/27/20 22 01/26/2022 pulmo nary stres s test, simpl e (PROC ) Unknown Analyte RESTIN G RA Not Available In-House Te st For Internal Use Only, Do Not Delete/merge, [id number] 01/26/2022 11:02:55 01/27/20 22 01/26/2022 pulmo nary stres s test, simpl e (PROC ) Unknown Analyte 94 Not Available In-[facility] se Test For Internal Use Only, Do Not Delete/merge, [id number] 01/26/2022 11:02:55 01/27/20 22 01/26/2022 pulmo nary stres s test, simpl e (PROC ) Unknown Analyte 87 Not Available In-[facility] se Test For Internal Use Only, Do Not Delete/merge, 01/26/2022 11:02:55 01/27/20 22 01/26/2022 pulmo nary stres s test, simpl e (PROC ) Unknown Analyte 0 Not Available In-[facility] Test For Internal Use Only, Do Not Delete/merge, 01/26/2022 11:02:55 01/27/20 22 01/26/2022 pulmo nary stres s test, simpl e (PROC ) Unknown Analyte WALKIN G RA Not Available In-House Te st For Internal Use Only, Do Not Delete/merge, 01/26/2022 11:02:55 01/27/20 22 01/26/2022 pulmo nary stres s test, simpl e (PROC ) Unknown Analyte 93 Not Available In-[facility] Test For Internal Use Only, Do Not Delete/merge, 01/26/2022 11:02:55 01/27/2001/26/2022 pulmo nary stres s test, simpl e (PROC ) Unknown Analyte 95 Not Available In-[facility] se Test For Internal Use Only, Do Not Delete/merge, 01/26/2022 11:02:55 01/27/20 22 01/26/2022 pulmo nary stres s test, simpl e (PROC ) Unknown Analyte 0 Not Available In-[facility] Test For Internal Use Only, Do Not Delete/merge, 01/26/2022 11:02:55 01/27/20 22 01/26/2022 pulmo nary stres s test, simpl e (PROC ) Unknown Analyte WALKIN G RA Not Available In-House Te st For Internal Use Only, Do Not Delete/merge, 01/26/2022 11:02:55 01/27/20 22 01/26/2022 pulmo nary stres s test, simpl e (PROC ) Unknown Analyte 93 Not Available In-[facility] Test For Internal Use Only, Do Not Delete/merge, 01/26/2022 11:02:55 01/27/20 22 01/26/2022 pulmo nary stres s test, simpl e (PROC ) Unknown Analyte 98 Not Available In-[facility] Test For Internal Use Only, Do Not Delete/merge, 01/26/2022 11:02:55 01/27/20 22 01/26/2022 pulmo nary stres s test, simpl e (PROC ) Unknown Analyte 0 Not Available In-[facility] Test For Internal Use Only, Do Not Delete/merge, 01/26/2022 11:02:55 01/27/20 22 01/26/2022 pulmo nary stres s test, simpl e (PROC ) Unknown Analyte WALKIN G RA Not Available In-House Te st For Internal Use Only, Do Not Delete/merge, 01/26/2022 11:02:55 01/27/20 22 01/26/2022 pulmo nary stres s test, simpl e (PROC ) Unknown Analyte 93 Not Available In-[facility] Test For Internal Use Only, Do Not Delete/merge, 01/26/2022 11:02:55 01/27/2001/26/2022 pulmo nary stres s test, simpl e (PROC ) Unknown Analyte 100 Not Available In-[facility] Test For Internal Use Only, Do Not Delete/merge, 01/26/2022 11:02:55 01/27/2001/26/2022 pulmo nary stres s test, simpl e (PROC ) Unknown Analyte 0 Not Available In-[facility] Test For Internal Use Only, Do Not Delete/merge, 01/26/2022 11:02:55 01/27/20 22 01/26/2022 pulmo nary stres s test, simpl e (PROC ) Unknown Analyte WALKIN G RA Not Available In-House Te st For Internal Use Only, Do Not Delete/merge, 01/26/2022 11:02:55 01/27/20 22 01/26/2022 pulmo nary stres s test, simpl e (PROC ) Unknown Analyte 93 Not Available In-[facility] se Test For Internal Use Only, Do Not Delete/merge, 01/26/2022 11:02:55 01/27/20 22 01/26/2022 pulmo nary stres s test, simpl e (PROC ) Unknown Analyte 101 Not Available In-[facility] se Test For Internal Use Only, Do Not Delete/merge, 01/26/2022 11:02:55 01/27/20 22 01/26/2022 pulmo nary stres s test, simpl e (PROC ) Unknown Analyte 0 Not Available In-[facility] Test For Internal Use Only, Do Not Delete/merge, 01/26/2022 11:02:55 01/27/20 22 01/26/2022 pulmo nary stres s test, simpl e (PROC ) Unknown Analyte WALKIN G RA Not Available In-House Te st For Internal Use Only, Do Not Delete/merge, 01/26/2022 11:02:55 01/27/2001/26/2022 pulmo nary stres s test, simpl e (PROC ) Unknown Analyte 94 Not Available In-[facility] Test For Internal Use Only, Do Not Delete/merge, 01/26/2022 11:02:55 01/27/2001/26/2022 pulmo nary stres s test, simpl e (PROC ) Unknown Analyte 103 Not Available In-[facility] Test For Internal Use Only, Do Not Delete/merge, 01/26/2022 11:02:55 01/27/2001/26/2022 pulmo nary stres s test, simpl e (PROC ) Unknown Analyte 0 Not Available In-[facility] Test For Internal Use Only, Do Not Delete/merge, 01/26/2022 11:02:55 01/27/2001/26/2022 pulmo nary stres s test, simpl e (PROC ) Unknown Analyte WALKIN G RA Not Available In-House Te st For Internal Use Only, Do Not Delete/merge, 01/26/2022 11:02:55 01/27/20 22 01/26/2022 pulmo nary stres s test, simpl e (PROC ) Unknown Analyte 160/74 Not Available In-[facility] Test For Internal Use Only, Do Not Delete/merge, 01/26/2022 11:02:55 01/27/20 22 01/26/2022 pulmo nary stres s test, simpl e (PROC ) Unknown Analyte 80 Not Available In-[facility] se Test For Internal Use Only, Do Not Delete/merge, [id number] 01/26/2022 11:02:55 01/06/20 22 01/05/2022 ar metry testi ng* No observ ation record ed. 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 TECHNI QUE: CT CHEST WITHOU T CONTRA ST Multip lanar reform ats were obtain ed. Radiat ion dose optimi zation techni que was utiliz ed. COMPAR RICH: 2020 FINDIN GS: Soft tissue detail is limite d withou t intrav enous contra st. Lungs: Progre ssive tree-i n-bud type inters titial nodula r change s in the anteri or right upper lung to includ e the densit y seen previo usly measur ing 4 to 5 mm. Questi on sequel ae of the active inflam matory proces s not to exclud e the pneumo jennifer or atypic al pneumo jennifer. There is a previo usly descri bed 4 mm densit y identi fied in the right lower lung, pleura l-base d which has not change d. Cardio vascul ar: Aortic calcif icatio ns adam ry calcif icatio ns. No perica rdial fluid no apprec iable medias tinal adenop athy identi fied. There are gallst ones. There is a cystic densit y redemo nstrat ed in the upper pole left kidney , measur ing approx imatel y 5 cm/ also tiny stone, measur ing 1 mm Osseou s struct ures: Unrema rkable . IMPRES SARAI: Progre ssive tree-i n-bud change s questi on sequel ae pneumo jennifer or atypic al pneumo jennifer correl ate clinic ally. [employer] guidel ine: GUIDEL CJ FOR FOLLOW -UP OF CHEST NODULE S SOLID solita ry nodule Follow up guidel cj for nodule s by size in low risk patien ts: -Less than 6 mm: No routin e follow -up. -6-8 mm: CT 6-12 months , then consid er CT at 18-24 months . -Great er than 8 mm: Consid er CT in 3 months , PET/CT , or tissue sampli ng. Follow -up guidel cj by nodule size in high-r isk patien ts *: -Less than 6 mm: Consid er CT at 12 months . -6-8 mm: CT at 6-12 months , then consid er CT at 18-24 months . -Great er than 8 mm: Consid er CT at 3 months , PET/CT , or tissue sampli ng. *High risk factor s includ e older age, irregu lar or spicul ated margin s, smokin g histor y, and upper lobe locati on. MacMah on et all. 2017. Guidel cj for Manage ment of Incide ntal Pulmon venu Nodule s Detect ed on CT Images : From the [employer] 2017. Radiol ogy. 284 (1): 228-24 3. Electr onical ly Signed By: Gareth Segovia Willia m Sign Date: [id number] [facility] All Locations, [place], [address], 02/03/2024 19:42:38 01/26/20 22 01/19/2022 compl ete PFT w/ [facility] ator ar metry * No observ ation record ed. [email or web address] Not Available 2021 08:31:12 02/08/20 22 02/03/2022 , echoc ardio gram No observ ation record ed. [id number] [facility] All Locations, [place], [address], 02/03/2024 20:31:07 01/22/20 23 01/18/2023 CT, chest , w/o contr ast CT CHEST WITHOU T CONTRA ST TECHNI QUE: CT was perfor med throug h the chest withou t the intrav enous admini strati on of an iodina ivonne contra st agent. Axial CT images and multip lanar reform ations were recons tructe d. Techni cristina factor s are evalua ivonne and adjust ed to ensure approp riate radiat ion exposu re and mainta in diagno stic image qualit y. Automa ivonne exposu re contro l is used to adjust the radiat ion dose to minimi ze exposu re. When availa ble, iterat [place] recons tructi on techni ques are used to lower radiat ion dose. INDICA TION:N onspec ific abnorm alitie s in the lung COMPAR RICH:1 03/16/19 22 FINDIN GS: The thorac ic inlet, axilla , and superf icial soft tissue s of the chest exhibi t no eviden ce of a signif icant pathol ogic proces s. Modera te adam ry artery calcif icatio ns are eviden t.No lympha denopa thy or other abnorm al masses or fluid collec tions are appare nt in the medias tinum. Tree in bud infilt rates are appare nt, scatte red throug hout the lungs bilate rally, signif icantl y more appare nt on the curren t exam than the previo us study. No pleura l effusi ons or other signs of active pleura l diseas e are detect ed. The limite d views of the upper abdomi nal viscer a and surrou nding struct ures reveal no findin gs to indica te an acute pathol ogic proces s.Larg e partia lly calcif ied gallst ones are eviden t in the gallbl adder. There is a 6 cm cyst in the upper pole the left kidney . Severe degene rative change s are presen t throug hout the thorac ic spine. IMPRES SARAI: There has been a signif icant increa se in the tree in bud infilt rates appare nt in the lungs since the compar rich. 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 Cholel ithias is. Modera te adam ry artery calcif icatio ns. Electr onical ly Signed By: Rolo Walter Sign Date: [id number] [facility] All Locations, [place], [address], 02/03/2024 19:39:04 02/01/20 23 01/25/2023 compl ete PFT w/ [facility] hodil ator ar metry * No observ ation record ed. [email or web address] In-House Test For Internal Use Only, Do Not Delete/merge, [id number] 01/31/2023 09:53:43 06/01/19 24 05/24/2023 CT, chest , w/o contr ast No observ ation record ed. tchadha Not Available 2023 12:13:15 07/18/19 24 07/18/2023 XR, chest , 2 view INDICA TION: Female 88 years. - J18.9 Pneumo jennifer, unspec ified organi sm. TECHNI QUE: CHEST 2V. COMPAR RICH: Previo us CT of the chest dated 023 FINDIN GS: The cardia c silhou ette is not enlarg ed. Athero matous calcif icatio ns are noted about the thorac ic aorta. The pulmon venu vascul ature is within normal limits . The lungs are hyperi nflate d. There are coarse lung diseas e. There is bilate ral peribr onchia l thicke dario. There is no pneumo thorax or effusi on. Degene rative change s involv e the thorac ic spine. IMPRES SARAI: Chroni c emphys ematou s change s with bilate ral peribr onchia l thicke dario. Clinic al correl ation for bronch itis is recomm ended. Note: The [employer], [facility] and the [place] preven tative servic es task force now approv e CT low-do se chest screen ing in the follow ing patien ts: - Age 55-77 who curren tly smoke or who have quit within the last 15 years - Asympt omatic patien ts with a 30-pac k-year histor y of smokin g Electr onical ly Signed By: Kale zafar DMartinaOMartina, Board Certif ied Radiol ogist Sign Date: [facility] All Locations, [place], [address], 07/18/2023 20:53:53 Result Notes None recorded. Problems Name Problem SNOMED Code Status Onset Date Resolution Date Notes Provider Name and Address Organization Details Recorded Time Pulmonar y hyperten sarai 94669865 Completed 201707/19/2023 [facility] 4 12:50:37 Rheumato id arthriti s 52052069 Active 2021 ON PREDNISO NE...... [facility] 13:08:06 Venous varices 814131779 Completed 201707/19/2023 [facility] 12:50:37 Serum creatini ne above referenc e range 712656340 Completed 201807/19/2023 Arnold Paulino Jr [facility] 4 12:50:37 Steatosi s of liver 765660437 Completed 202007/19/2023 [facility] 4 12:50:37 Pneumoni a 843277136 Completed 07/19/2023 [facility] 4 12:50:37 Disorder of bone and articula r cartilag e 676169027 Completed 07/19/2023 [facility] 4 12:50:37 Dyspnea 983741047 Completed 07/19/2023 [facility] 4 12:50:37 Disorder of lipid metaboli sm 626624108 Completed 07/19/2023 [facility] 12:50:37 Orthosta tic hypotens ion 36324574 Completed 201707/19/2023 Arnold Paulino Jr null, [facility], [facility] 4 12:50:37 Osteopen ia 441564843 Completed 07/19/2023 Arnold Paulino Jr null, [facility], [facility] 4 12:50:37 Vitamin D deficien cy 35404136 Completed 07/19/2023 Arnold Paulino Jr null, [facility], [facility] 4 12:50:37 Elevated blood-pr essure reading without diagnosi s of hyperten sarai 338482335 Completed 201607/19/2023 Anrold quintanilla, [facility], [facility] 4 12:50:37 Disorder of vitamin B12 346464449 Completed 201507/19/2023 Arnold quintanilla, [facility], [facility] 4 12:50:37 Lighthea dedness 417917333 Completed 07/19/2023 Arnold Paulino Jr null, [facility], [facility] 4 12:50:37 Vertigo 709338443 Completed 201707/19/2023 Arnold Paulino Jr null, [facility], [facility] 4 12:50:37 Dizzines s 257993327 Completed 201707/19/2023 Arnold Paulino Jr null, [facility], [facility] 4 12:50:37 Foot pain 70981405 Completed 07/19/2023 Arnold Paulino Jr null, [facility], [facility] 4 12:50:37 Hip pain 48003865 Completed 07/19/2023 Arnold Paulino Jr null, [facility], [facility] 4 12:50:37 Cough 48893460 Completed 201707/19/2023 Arnold Paulino Jr null, [facility], [facility] 4 12:50:37 Essentia l hyperten sarai 60657764 Completed 201607/19/2023 Arnold Paulino Jr null, [facility], [facility] 4 12:50:37 Supraven tricular tachycar jad 7185531 Completed 201807/19/2023 Arnold Paulino Jr null, [facility], [facility] 4 12:50:37 Cyst of kidney 233675665 Completed 201907/19/2023 Arnold Paulino Jr null, [facility], [facility] 4 12:50:37 COVID-19 928369340 Completed 202007/19/2023 Arnold Paulino Jr null, [facility], [facility] 4 12:50:37 Leukopen ia 29669019 Completed 201807/19/2023 Arnold Paulino Jr null, [facility], [facility] 4 12:50:37 Tobacco dependen ce syndrome 38118965 Completed 07/19/2023 Arnold Paulino Jr null, [facility], [facility] 4 12:50:37 Diffuse intersti tial pulmonar y fibrosis 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 CTC 06/04.... .?? RA?..... ..DLCO NORMAL.. 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 271632267 Completed 01/26/2020 Evgeny Rodriguez MD [address], [place], [address], [facility], [facility] 0 18:02:26 Urinary tract infectio us disease 16584739 Completed 01/09/2020 MD Juve Jamison[address], [place], [address], [facility], [facility] 0 07:09:26 Hyperten sive disorder 93544975 Completed 01/26/2020 Evgeny Rodriguez MD [address], [place], [address], [facility], [facility] 2 10:17:02 Multiple nodules of lung 165335778 Completed 201507/19/2023 Arnold quintanilla, [facility], [facility] 4 12:50:37 Gastroes ophageal reflux disease 727753463 Completed 01/26/2020 MD Juve Jam[address], [place], [address], [facility], [facility] 0 18:02:04 Patient encounte r status 492189662 Completed 01/09/2020 Evgeny Rodriguez MD [address], [place], [address], [facility], [facility] 0 07:07:40 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 Active ON B12 SHOTS: CARDONAЕЛЕНА quintanilla, [facility], [facility] 3 13:08:04 Allergic rhinitis 43949029 Active Arnold quintanilla, [facility], [facility] 3 13:08:06 Isidro elliott 614588826 Active SEEN ON CTC Arnold quintanilla, [facility], [facility] 3 13:08:04 Syncope 431845757 Completed 201707/19/2023 Arnold quintanilla, [facility], [facility] 4 12:50:37 Gastro-e sophagea l reflux disease with esophagi tis 696762178 Active 2019 Arnold Paulino Jr [facility], [facility], [facility] 3 13:08:04 Essentia l hyperten sarai 79666762 Completed 201901/26/2021 Arnold Paulino Jr [facility], [facility], [facility] 4 12:50:37 Chronic obstruct [place] pulmonar y disease 17910800 Active 2019 MODERATE ........ 54%..... ...20 pk yrs...QU IT 1976 Evgeny Rodriguez MD [address] [address], [place], [address], [facility], [facility] 2 10:17:03 Hyperten sive disorder 69542044 Active 2020 Arnold Paulino Jr [facility], [facility] 3 13:08:05 Notes:Some problems listed i n Documents: #[id number], #[id number] could not be added to this patient's chart. Please review these documents and add these problems to the patient's chart manually as needed. Problem Notes None recorded. Procedures Surgical History Date Name Laterality Status Provider Name and Address Organization Details Recorded Time 05/08/19 25 G2211 active Arnold Paulino Jr [facility], [facility] 04/04/2024 11:53:18 07/19/19 24 G2211 completed Arnold Paulino Jr [facility], [facility] 07/13/2023 10:35:16 07/05/19 24 G2211 cancelled Arnold Paulino Jr [facility], [facility] 06/29/2023 10:29:47 03/14/19 20 bone density scan completed Richard Hunt [facility], [facility] 02/18/2020 15:27:11 12/13/19 19 mammography completed Richard Gilbert [facility], [facility] 02/18/2020 15:26:54 03/14/19 03 Colonoscopy completed Richard Gilbert [facility], [facility] 02/18/2020 15:26:38 Imaging Results Imaging Date Name Status LastModified by Organization Details LastModified Time 01/05/2022 spirometry testing* completed [email or web address] In-House Test For Internal Use Only, Do Not Delete/merge, [id number] 01/14/2022 10:05:52 01/14/2022 CT, chest, w/o contrast completed [id number] [facility] All Locations, [place], [address], 02/03/2024 19:42:38 01/19/2022 complete PFT w/ post bronchodilator spirometry* completed Information not available 01/25/2022 08:31:12 02/03/2022 US, echocardiogram completed [id number] [facility] All Locations, [place], [address], 02/03/2024 20:31:07 01/18/2023 CT, chest, w/o contrast completed [id number] [facility] All Locations, [place], [address], 02/03/2024 19:39:04 01/25/2023 complete PFT w/ post bronchodilator spirometry* completed [email or web address] In-House Test For Internal Use Only, Do Not Delete/merge, [id number] 01/31/2023 09:53:43 05/24/2023 CT, chest, w/o contrast completed Information not available 06/01/2023 12:13:15 07/18/2023 XR, chest, 2 view completed [email or web address] [facility] All Locations, [place], [address], 07/18/2023 20:53:53 Procedure Notes None recorded. Medical Equipment None Reported. Allergies Allergen ID Allergen Name Allergen Category Reaction Reaction Severity Criticality Documentation Date Start Date Code Code System Note Provider Name and Address Organization Details Recorded Time [id number] latex environme nt,medica tion hives Not available Not available 06/10/2022 [id number] RxNorm Arnold burton null, [place] - [facility], [facility] 3 13:07:48 [id number] Substance with sulfonami de structure and antibacte rial mechanism of action (substanc e) medicatio n Not available Not available Not available 02/14/2020 [id number] 8003 SNOMED Marsha Kirkpatrick [facility], [place] - [facility], [facility] 0 07:25:44 Medications Name Sig Start Date Stop Date Status Note LastModified by Organization Details LastModified Time acetaminoph en 325 mg tablet Take 2 tablets every 4 hours by oral route as needed. active Not Available Not Available No t Available prednisone 10 mg tablet TAKE 4 TABLETS BY MOUTH ONCE DAILY FOR 3 DAYS, THEN 3 ONCE DAILY FOR 3 DAYS, THEN 2 ONCE DAILY FOR 3 DAYS, AND THEN 1 ONCE DAILY FOR 3 DAYS active Not Available Not Available No t Available doxycycline hyclate 100 mg capsule TAKE 1 CAPSULE BY MOUTH EVERY 12 HOURS 02/07 completed Not Available Not Available Not Available ipratropium 0.5 mg-albutero l 3 mg (2.5 mg base)/3 mL nebulizatio n soln USE 1 AMPULE IN NEBULIZER 4 TIMES DAILY active Not Available Not Available No t Available albuterol sulfate 2.5 mg/3 mL (0.083 %) solution for nebulizatio n USE 1 AMPLE IN NEBULIZER EVERY 6 HOURS NEEDED FOR WHEEZING/ SHORTNESS OF BREATH active Not Available Not Available No t Available BD Luer-Glenroy Syringe 3 mL 25 x 5/8 USE DIRECTED 07/07 completed Not Available Not Available Not Available azithromyci n 250 mg tablet TAKE 2 TABLETS BY MOUTH ON DAY 1, AND THEN TAKE 1 TABLET BY MOUTH ONCE A DAY ON DAY 2 THROUGH DAY 5 active Not Available Not Available No t Available benzonatate 200 mg capsule 01/06 completed Not Available Not Available Not Available Nystop 100,000 unit/gram topical powder 02/07 completed Not Available Not Available Not Available famotidine 40 mg tablet TAKE 1 TABLET BY MOUTH EVERY DAY 06/18 completed Not Available Not Available Not Available prednisone 20 mg tablet TAKE ONE TABLET BY MOUTH DAILY FOR 5 DAYS 01/01 completed Not Available Not Available Not Available BD Insulin Syringe 1 mL 25 gauge x 5/8 as directed 07/07 completed Not Available Not Available Not Available prednisone 5 mg tablet TAKE 1 TABLET BY MOUTH ONCE DAILY active Not Available Not Available No t Available methylpredn isolone 4 mg tablet TAKE 4 TABLETS BY MOUTH ONCE DAILY FOR 10 DAYS 02/07 completed Not Available Not Available Not Available Debrox 6.5 % ear drops INSTILL 5 DROPS INTO AFFECTED EAR(S) BY OTIC ROUTE 2 TIMES PER DAY 01/06 completed Not Available Not Available Not Available torsemide 10 mg tablet TAKE 1 TABLET BY MOUTH ONCE DAILY NEEDED FOR SWELLING active Not Available Not Available No t Available valsartan 80 mg tablet Take 1 {tablet} twice a day by oral route. 02/17 completed Not Available Not Available Not Available amlodipine 2.5 mg tablet TAKE 1 TABLET EVERY DAY DIRECTED 01/26 completed Not Available Not Available Not Available amlodipine 5 mg tablet Take 1 tablet every day by oral route for 90 days. 06/29 completed Not Available Not Available Not Available methotrexat e sodium 25 mg/mL injection solution 07/07 completed Not Available Not Available Not Available amoxicillin 500 mg tablet TAKE 1 TABLET BY MOUTH EVERY 8 HOURS UNTIL GONE. 01/05 completed Not Available Not Available Not Available prednisone 10 mg tablets in a dose pack 07/07 completed Not Available Not Available Not Available amoxicillin 875 mg tablet TAKE 1 TABLET BY MOUTH TWICE A DAY FOR 7 DAYS 01/01 completed Not Available Not Available Not Available famotidine 20 mg tablet TAKE 1 TABLET BY MOUTH ONCE DAILY FOR 90 DAYS active Not Available Not Available No t Available methotrexat e sodium 2.5 mg tablet 02/07 completed Not Available Not Available Not Available ropinirole 0.25 mg tablet Take 2 tablets every day by oral route at bedtime for 30 days. active Not Available Not Available No t Available prednisone 2.5 mg tablet TAKE 3 TABLETS BY MOUTH IN THE MORNING WITH FOOD active Not Available Not Available No t Available cephalexin 500 mg capsule TAKE 1 CAPSULE BY MOUTH EVERY 12 HOURS FOR 7 DAYS 02/07 completed Not Available Not Available Not Available cyanocobala min (vit B-12) 1,000 mcg/mL injection solution INJECT 1ML INTRAMUSC ULARLY EVERY MONTH DIRECTED active Not Available Not Available No t Available ropinirole 0.5 mg tablet Take 1 tablet twice a day by oral route. 07/07 completed Not Available Not Available Not Available folic acid 1 mg tablet 07/07 completed Not Available Not Available Not Available codeine 10 mg-guaifene sin 100 mg/5 mL oral liquid TAKE 10 ML BY MOUTH EVERY 4 HOURS NEEDED FOR 5 DAYS active Not Available Not Available No t Available metoprolol succinate ER 25 mg tablet,exte nded release 24 hr Take 0.5 tablets every day by oral route as directed for 90 days. active Not Available Not Available No t Available hydroxychlo roquine 200 mg tablet Take 1 tablet twice a day by oral route as directed for 5 days. active Not Available Not Available No t Available levofloxaci n 750 mg tablet Take 1 tablet every day by oral route. 07/18 completed Not Available Not Available Not Available methylpredn isolone 4 mg tablets in a dose pack FOLLOW PACKAGE DIRECTION S 02/02 completed Not Available Not Available Not Available Vitamin D2 1,250 mcg (50,000 unit) capsule Take 1 capsule every week by oral route. active Not Available Not Available No t Available ondansetron 4 mg disintegrat ing tablet 07/07 completed Not Available Not Available Not Available cefdinir 300 mg capsule TAKE 1 CAPSULE BY MOUTH TWICE DAILY 02/07 completed Not Available Not Available Not Available naproxen 500 mg tablet TAKE 1 [...] oral route before meals for 21 days. 06/18 completed Not Available Not Available Not Available Ventolin HFA 90 mcg/actuati on aerosol inhaler Inhale 2 puffs 4 times a day by inhalatio n route for 30 days. 2023 active Not Available Not Available Not Avai lable valsartan 160 mg tablet TAKE 1 TABLET EVERY DAY 10/20 completed Not Available Not Available Not Available neomycin-po lymyxin-hyd rocort 3.5 mg-10,000 unit/mL-1 % ear drops,susp 01/01 completed Not Available Not Available Not Available olmesartan 20 mg tablet TAKE 1/2 TABLET BY MOUTH DAILY 07/07 completed Not Available Not Available Not Available Vitamin D3 25 mcg (1,000 unit) capsule Take 3 capsules every day by oral route as directed. 04/11 completed Not Available Not Available Not Available methotrexat e sodium (PF) 25 mg/mL injection solution 07/07 completed Not Available Not Available Not Available metoprolol tartrate 25 mg tablet Take 0 {tablet}s by oral route. 06/18 completed Not Available Not Available Not Available nitrofurant oin monohydrate /macrocryst als 100 mg capsule TAKE ONE CAPSULE BY MOUTH EVERY 12 HOURS FOR 7 DAYS 03/02 completed Not Available Not Available Not Available BD Integra Syringe 3 mL 25 gauge x 5/8 USE DIRECTED 07/07 completed Not Available Not Available Not Available chlorhexidi ne gluconate 0.12 % mouthwash PLEASE SEE ATTACHED FOR DETAILED DIRECTION S 03/02 completed Not Available Not Available Not Available Aquasol E (d-alpha tocopherol) Once a day. 05/27 completed Not Available Not Available Not Available PreserVisio n AREDS Two tablets once a day 07/07 completed Not Available Not Available Not Available Symbicort 160 mcg-4.5 mcg/actuati on HFA [...] completed Not Available Not Available Not Available Stiolto Respimat 2.5 mcg-2.5 mcg/actuati on solution for inhalation Inhale 2 puffs every day by inhalatio n route as directed. 02/02 completed Not Available Not Available Not Available Trelegy Ellipta 100 mcg-62.5 mcg-25 mcg powder for inhalation INHALE 1 PUFF INTO LUNGS ONCE DAILY active Not Available Not Available No t Available Shingrix (PF) 50 mcg/0.5 mL intramuscul ar suspension, kit 02/20 completed Not Available Not Available Not Available Fluad Quad (6 5yr up)(PF) 60 mcg (15 mcg x 4)/0.5mL IM syringe ADM 0.5ML IM UTD 02/20 completed Not Available Not Available Not Available Trelegy Ellipta 200 mcg-62.5 mcg-25 mcg powder for inhalation Inhale 1 puff every day by inhalatio n route for 90 days. active Not Available Not Available No t Available Flowflex COVID-19 Antigen Home Test kit REFER [...] height Body mass index (BMI) Body weight Pain severity - 0-10 verbal numeric rating [Score] - Reported Body temperature Heart rate Oxygen saturation Oxygen saturation in Arterial blood by Pulse oximetry Systolic blood pressure Diastolic blood pressure Systolic blood pressure Diastolic blood pressure Provider Name and Address Organization Details Last Updated DateTime 2 152.4 cm 29.5 kg/m2 24656.4 5 g 0 97.6 [degF] 71 /min 93 % 93 % 154 mm[Hg] 75 mm[Hg] 150 mm[Hg] 76 mm[Hg] Karmen Oropeza [facility], [facility] 2 11:05:44 Date Recorded Body height Body mass index (BMI) Body weight Pain severity - 0-10 verbal numeric rating [Score] - Reported Body temperature Heart rate Oxygen saturation Oxygen saturation in Arterial blood by Pulse oximetry Systolic blood pressure Diastolic blood pressure Systolic blood pressure Diastolic blood pressure Provider Name and Address Organization Details Last Updated DateTime 3 152.4 cm 29.3 kg/m2 25420.8 6 g 0 98.1 [degF] 89 /min 93 % 93 % 162 mm[Hg] 69 mm[Hg] 138 mm[Hg] 74 mm[Hg] Naa Linares [facility], [facility] 3 13:42:10 Date Recorded Body height Body mass index (BMI) Body weight Body temperature Pain severity - 0-10 verbal numeric rating [Score] - Reported Oxygen saturation Oxygen saturation in Arterial blood by Pulse oximetry Heart rate Systolic blood pressure Diastolic blood pressure Systolic blood pressure Diastolic blood pressure Provider Name and Address Organization Details Last Updated DateTime 3 152.4 cm 27 kg/m2 06525.7 5 g 97.9 [degF] 0 94 % 94 % 69 /min 150 mm[Hg] 68 mm[Hg] 135 mm[Hg] 69 mm[Hg] Richard Hunt [facility], [facility] 3 11:37:50 Date Recorded Body height Body mass index (BMI) Body weight Pain severity - 0-10 verbal numeric rating [Score] - Reported Oxygen saturation Oxygen saturation in Arterial blood by Pulse oximetry Heart rate Body temperature Systolic blood pressure Diastolic blood pressure Provider Name and Address Organization Details Last Updated DateTime 4 152.4 cm 29.5 kg/m2 97723.4 5 g 0 96 % 96 % 81 /min 97.8 [degF] 137 mm[Hg] 70 mm[Hg] Richard Hunt [facility], [facility] 4 12:16:41 Date Recorded Body height Body mass index (BMI) Body weight Pain severity - 0-10 verbal numeric rating [Score] - Reported Oxygen saturation Oxygen saturation in Arterial blood by Pulse oximetry Heart rate Body temperature Systolic blood pressure Diastolic blood pressure Provider Name and Address Organization Details Last Updated DateTime 4 152.4 cm 28.7 kg/m2 45052.0 8 g 0 95 % 95 % 87 /min 97.8 [degF] 122 mm[Hg] 65 mm[Hg] Richard MALAVE [facility], [facility] 4 12:37:48 Social History Question Answer Notes LastModified by Organizat ion Details LastModified Time Tobacco Smoking Status Former Smoker Richard quintanilla [facility], [facility] 02/18/2020 15:25:33 Do You Have An Advance Directive? No Information not available 01/26/2021 Is Your Home Air Conditioned? Yes [email or web address] Information not available 02/07/2023 What Is Your Level Of Alcohol Consumption? Occasional [email or web address] Information not available 02/18/2020 Are You Currently Sexually Active With Anyone Who Has Traveled (within The Last 12 Weeks) To A Zika-affected Area? No [email or web address] Information not available 02/07/2023 Is Blood Transfusion Acceptable In An Emergency? Yes [email or web address] Information not available 07/19/2023 How Much Tobacco Do You Chew? None [email or web address] Information not available 02/18/2020 In The 14 Days Before Symptom Onset, Have You Had Close Contact With A Laboratory-confi rmed COVID-19 While That Case Was Ill? No Information not available 02/07/2023 In The 14 Days Before Symptom Onset, Have You Had Close Contact With A Person Who Is Under Investigation For COVID-19 While That Person Was Ill? No Information not available 02/07/2023 Have You Been To An Area Known To Be High Risk For COVID-19? No Information not available 02/07/2023 What Type Of Diet Are You Following? REGULAR Information not available 01/26/2021 Have You Processed Blood Or Body Fluids From An Ebola Virus Disease Patient Without Appropriate PPE? No [email or web address] Information not available 02/07/2023 Do You Reside In Or Have You Traveled To An Area Where Ebola Virus Transmission Is Active? No [email or web address] Information not available 02/07/2023 Do You Or Have You Ever Used E-cigarettes Or Vape? Never Used Electronic Cigarettes [email or web address] Information not available 02/18/2020 Do You Have An Electrostatic Air Filter? No [email or web address] Information not available 02/07/2023 Have You Been Exposed To Chemicals Or Toxins? No [email or web address] Information not available 02/07/2023 What Is The Fluoride Status Of Your Home? Unknown [email or web address] Information not available 02/07/2023 When Did You Quit Smoking? 16+yearscecille lara 1976 Information not available 02/07/2023 Do You Have A Humidifier? No [email or web address] Information not available 02/07/2023 Where Do You Live? SingleLevelHouse [email or web address] Information not available 02/07/2023 Alcohol Use No eli Informatio n not available 01/26/2021 Do You Smoke? No [email or web address] Informat ion not available 01/26/2021 Year Quit Tobacco Use 1978 [email or web address] Information not available 02/14/2020 Marital Status Informatio n not available 02/07/2023 Do You Have A Medical Power Of Formula Technician? No Information not available 02/07/2023 What Was The Date Of Your Most Recent Tobacco Screening? 07/19/2023 [email or web address] Information not available 07/19/2023 What Is Your Current Pack Years? [email or web address] Information no t available 02/07/2023 Have You Ever Been Counseled For Unhealthy Alcohol Use? No Information not available 02/07/2023 What Is Your Relationship Status? [email or web address] Information not available 01/26/2021 Do You Use Your Seat Belt Or Car Seat Routinely? Yes Information not available 02/07/2023 At What Age Did You Start Smoking Tobacco? 21 Information not available 01/26/2021 Do You Or Have You Ever Used Smokeless Tobacco? Never Used Smokeless Tobacco [email or web address] Information not available 02/18/2020 Are There Any Smokers In Your House? No [email or web address] Information not available 02/07/2023 How Much Tobacco Do You Smoke? 1 PPD [email or web address] Information not available 02/18/2020 Do You Use Any Illicit Or Recreational Drugs? No Information not available 02/07/2023 On What Date Was Tobacco Cessation Counseling Provided? 07/19/2023 [email or web address] Information not available 07/19/2023 How Many Years Have You Smoked Tobacco? 20 Information not available 01/26/2021 Do You Or Have You Ever Used Any Other Forms Of Tobacco Or Nicotine? No Information not available 02/07/2023 Sex: Female Functional Status Question Answer Note LastModified by Organizat ion Details LastModified Time Do you have transportation difficulties? No [email or web address] Information not available 02/07/2023 Are you able to care for yourself? Yes Information not available 02/07/2023 What is your exercise level? None Information not available 01/26/2021 Mental Status None recorded. Family History Relationship Description Onset Age of this Age Resolved Age Notes LastModified by Organization Details LastModified Time Mother Malignant tumor of pancreas eli Not available 07:26:49 Medical History Condition Response Cancer (location) N Other Y Gout N Kidney Stones N Measles/Mumps N Arthralgia N Vomiting N Yeast Infection N Sexually Transmitted Disease N Depression N Blood Clots N Wheezing N Pneumonia N Prostate Problems N Parkinson's N Paralysis N Headaches/Migraines N Cardiac Pacemaker/defibrillator N Dizziness N Arthritis N Night Sweats N Artificial Joint N Blood in Stool N Crohn's Disease N HIV/AIDS N Stroke/TIA N Kidney Disease N Hiatal Hernia N High blood pressure Y Gallbladder disease N Weight Loss N Blood Thinner Treatment N Alcohol Overuse N Gallstones N Nervous Breakdown N Connelly's Esophagus N Muscle Aches N Urinary Problems N Nausea N Gastritis N Back pain N Rheumatic Fever N Bleeding Disorder N Osteopenia/Osteoporosis N inflammation of vein N Asthma N Ostomies (location) N Seizures N Swelling/Edema N Jaundice N Hepatitis N Cirrhosis N Chicken Pox N Allergies (other than meds) Y Thyroid Disease N Diarrhea N Emphysema/COPD Y Lung Disease N Vascular Disease N Rash/Skin Condition N Amputation (location) N Nerve Damage / Neuropathy N Blood in Urine N Sleep disorder/Insomnia N Heart disease / Heart Attack N Shortness of Breath N High Cholesterol N Colon Problems N Serious Injuries N Dialysis N Leg Cramping N Memory Loss/Alzheimer's N Chronic Cough N Fever/Chills N Congestive heart failure N Falls N Hormone Replacement N Anemia N Chest Pain N Colon Polyps N Hospitalizations (other than operations) N Diabetes N Cardiac Arrhythmias /irregular heart rat e N Heart Murmur N Phlebitis N Anxiety/Stress N Vision Problems N Erectile / Sexual Dysfunction N Epilepsy N Morning Cough N Sleep Apnea N Fainting N GERD/Ulcer Y Bronchitis N Gynecological HistoryNo gynecological history recorded. Obstetrics History GPAL:G 0 P 0 0 0 0 Immunizations Vaccine Type Date Status Note Provider Nam e and Address Organization Details Recorded Time Pneumococcal conjugate PCV 13 7 completed Not Available [facility] 02/06/2023 04:44:00 pneumococcal polysaccharide PPV23 7 completed Not Available [facility] 02/06/2023 04:44:00 Influenza, split virus, trivalent, preservative 2 completed Cindy Oakley null, [facility], [facility] 06/18/2022 13:54:23 Pneumococcal conjugate PCV 13 5 completed Cindy Oakley null, [facility], [facility] 06/18/2022 13:54:23 Influenza, high-dose, trivalent, PF 4 completed Cindy Oakley null, [facility], [facility] 06/18/2022 13:54:23 zoster recombinant 0 [facility] 06/18/2022 13:54:23 Influenza, high-dose, trivalent, PF 7 completed [facility] 06/18/2022 13:54:23 influenza, unspecified formulation 8 completed Marsha quintanilla, [facility], [facility] 02/14/2020 07:22:33 Influenza, high-dose, trivalent, PF 5 completed Arnold Paulino Jr null, [facility], [facility] 06/10/2022 13:08:16 Influenza, adjuvanted, quadrivalent, PF 0 completed Cindy Oakley [facility], [facility], [facility] 06/18/2022 13:54:23 Influenza, split virus, quadrivalent, preservative 9 completed Marsha quintanilla, [facility], [facility] 02/14/2020 07:22:33 zoster live 3 completed [facility] 06/18/2022 13:54:23 zoster live 3 completed Marsha quintanilla, [facility], [facility] 02/14/2020 07:22:33 Tdap 4 completed [facility] 02/14/2020 07:22:33 pneumococcal polysaccharide PPV23 8 completed Marsha quintanilla, [facility], [facility] 02/14/2020 07:22:33 Influenza, split virus, trivalent, preservative 2 completed Marsha Kirkpatrick null, [facility], [facility] 02/14/2020 07:22:33 Influenza, split virus, quadrivalent, preservative 6 completed Marsha Kirkpatrick null, [facility], [facility] 02/14/2020 07:22:33 influenza nasal, unspecified formulation 3 completed Marsha Kirkpatrick null, [facility], [facility] 02/14/2020 07:22:33 Influenza, split virus, quadrivalent, preservative 0 completed Marsha Kirkpatrick null, [facility], [facility] 02/14/2020 07:22:33 Influenza, high-dose, trivalent, PF 6 completed Cindy Oakley null, [facility], [facility] 06/18/2022 13:54:23 Novel [id number] 9 completed Cindy Oakley null, [facility], [facility] 06/18/2022 13:54:23 zoster recombinant 1 completed Cindy Woodbine [facility], [facility], [facility] 06/18/2022 13:54:23 Influenza, adjuvanted, quadrivalent, PF 1 completed Cindy Oakley [facility], [facility], [facility] 06/18/2022 13:54:23 Influenza, split virus, quadrivalent, preservative 2 completed Not Available [facility] 02/06/2023 04:44:00 Influenza, split virus, quadrivalent, preservative 6 completed Not Available [facility] 02/06/2023 04:44:00 Influenza, split virus, quadrivalent, preservative 0 completed Not Available [facility] 02/06/2023 04:44:00 influenza, unspecified formulation 2 completed Arnold Pauilno Jr null, [facility], [facility] 06/10/2022 13:08:16 Novel [id number], all formulations 9 completed Not Available [facility] 02/06/2023 04:44:00 zoster live 3 completed Not Available [facility] 02/06/2023 04:44:00 zoster live 3 completed Not Available [facility] 02/06/2023 04:44:00 Past Encounters Encounter ID Performer Location Encounter Start Date Encounter Closed Date Diagnosis/Indication Diagnosis SNOMED-CT Code Diagnosis ICD10 Code Diagnosis Note [id number] Evgeny Rodriguez MD [facility] [address] [address] [place] [address] 02/18/2020 14:53:05 02/18/2020 15:43:34 Body mass index 30+ - obesity [id number] E66.9 Z68.30 weight issues discussed and informatio n on weight loss given. Needs follow up on weight control as scheduled. Education handout on diets given. Exercise counseling done. Will arrange referral for dietitian, nutritioni st, Physical/o ccupationa l therapy as needed or desired. Also will consider pharmaceut ical and supplement al interventi ons Obesity [id number] E66.9 Diet education [id number] Z71.3 as above Chronic ob structive pulmonary disease 55305248 J44.9 Patient COPD is relatively stable Continue Stiolto and Ventolin Recheck CT chest in 1 year as well as complete PFTs Palpitations [id number] R0 0.2 Allergic rhinitis 732039 04 J30.9 Advised Trial of Flonase 1 puff each nostril BID. May try OTC Nasacort as well. Use Gagandeep -Med Sinus Rinse (OTC) flushes 4-6 times / day Dyspnea on exertion 6084 5006 R06.09 Essential hypertension 77008137 I10 Multiple n odules of lung [id number] R91.8 [id number] Evgeny Rodriguez MD [facility] [address] [place] [address] 01/26/2021 09:55:49 01/26/2021 15:12:27 Body mass index 30+ - obesity [id number] Z68.31 weight issues discussed and informatio n on weight loss given. Needs follow up on weight control as scheduled. Education handout on diets given. Exercise counseling done. Will arrange referral for dietitian, nutritioni st, Physical/o ccupationa l therapy as needed or desired. Also will consider pharmaceut ical and supplement al interventi ons Obesity [id number] E66.9 see BMI above for details Diet education 88093173 Z71.3 as above Dyspnea on exertion 6084 5006 R06.09 Chronic {{complain t conditio n disease finding il lness inju ry problem * symptom sign othe r matter}}, unstable not at goal but improving. Prescripti on drug management : Prescripti on drug management : {{Add meds to current as noted below Begi n meds as noted below Umana ge medication s as noted below Cont inue medication s as in med list* No meds given until results back No meds given at this time Disco ntinue meds as noted Rest art meds as noted in prescripti on below Pt refuses rx No rx indicated OTC meds only}}. Follow up as scheduled. This is secondary to COPD as well as poor conditioni ng Chronic ob structive pulmonary disease 12913021 J44.9 chronic {{complain t conditio n disease finding il lness inju ry problem * symptom sign othe r matter}}, stable with no significan t clinical changes. Needs monitoring . Prescripti on drug management : {{Add meds to current as noted below Begi n meds as noted below U[place]a ge medication s as noted below Cont inue medication s as in med list* No meds given until results back No meds given at this time Disco ntinue meds as noted Rest art meds as noted in prescripti on below Pt refuses rx No rx indicated OTC meds only}}. Plan of care: Reduce Impairment , prevent chronic symptoms, require infrequent use of short-acti ng beta 2-agonist (JESI). Maintain (near) normal lung function and normal activity levels.. Reduce Risk, prevent exacerbati ons. Minimize need for emergency care, hospitaliz ation.. Prevent loss of lung function. Minimize adverse effects of therapy. Change medication s as needed to meet these goals. Follow up as scheduled Continue Stiolto and Ventolin inhaler Multiple n odules of lung [id number] R91.8 chronic {{complain t conditio n disease finding il lness inju ry problem * symptom sign othe r matter}}, stable with no significan t clinical changes. Needs monitoring . Prescripti on drug management : {{Add meds to current as noted below Begi n meds as noted below U[place]a ge medication s as noted below Cont inue medication s as in med list* No meds given until results back No meds given at this time Disco ntinue meds as noted Rest art meds as noted in prescripti on below Pt refuses rx No rx indicated OTC meds only}}. Follow up as scheduled. CT of the chest shows no change in the lung nodules as compared to 1 year ago Follow up serial CT Chest for Lung Nodules based on Fleischner Society Guidelines Hypertensive disorder 38 341029 I10 Chronic {{complain t conditio n* disease finding i llness inj ury proble m symptom sign othe r matter}}, stable at blood pressure goal. Needs monitoring . Prescripti on drug management : {{Add meds to current as noted below Begi n meds as noted below U[place]a ge medication s as noted below Cont inue medication s as in med list* Disc ontinue meds as noted No meds given at this time No meds given until results back No rx indicated OTC meds only Pt refuses rx Restart meds as noted in prescripti on below}}. Continue with therapeuti c lifestyle changes (TLC) and continue home bp monitoring . Plan of care will be to use TLC and/or medication s with periodic follow up visits to maintain a safe blood pressure goal of 140/90 or lower. Follow up as scheduled. Follow up as scheduled. Depression screening [id number] Z13.89 Patient scored __LOW___DE PRESSION SCREENING: PHQ-9 performed today, additional time spent for staff scoring and provider review for completion of chart. [id number] MD DENITA [facility] [address] [facility] [address] [place] [address] 01/05/2022 09:18:46 01/05/2022 10:28:34 Hypertensive disorder 68123481 I10 Chronic {{complain t conditio n* disease finding i llness inj ury proble m symptom sign othe r matter}}, stable at blood pressure goal. Needs monitoring . Prescripti on drug management : {{Add meds to current as noted below Begi n meds as noted below U[place]a ge medication s as noted below Cont inue medication s as in med list* Disc ontinue meds as noted No meds given at this time No meds given until results back No rx indicated OTC meds only Pt refuses rx Restart meds as noted in prescripti on below}}. Continue with therapeuti c lifestyle changes (TLC) and continue home bp monitoring . Plan of care will be to use TLC and/or medication s with periodic follow up visits to maintain a safe blood pressure goal of 140/90 or lower. Follow up as scheduled. Follow up as scheduled. Continue Toprol XL 25 mg a day, olmesartan 20 mg a day No evidence of Congestive Heart Failure at this time Multiple n odules of lung [id number] R91.8 chronic {{complain t conditio n disease finding il lness inju ry problem * symptom sign othe r matter}}, stable with no significan t clinical changes. Needs monitoring . Prescripti on drug management : {{Add meds to current as noted below Begi n meds as noted below U[place]a ge medication s as noted below Cont inue medication s as in med list* No meds given until results back No meds given at this time Disco ntinue meds as noted Rest art meds as noted in prescripti on below Pt refuses rx No rx indicated OTC meds only}}. Follow up as scheduled. CT of the chest shows no change in the lung nodules as compared to 1 year ago Follow up serial CT Chest for Lung Nodules based on Fleischner Society Guidelines Allergic rhinitis 205849 04 J30.9 Chronic {{complain t conditio n disease finding il lness inju ry problem * symptom sign othe r matter}} with {{exacerba tion progr ession* si de effect of treatment severe exacerbati on severe progressio n severe side effect of treatment} }. Prescripti on drug management : {{Add meds to current as noted below Begi n meds as noted below U[place]a ge medication s as noted below* Con tinue medication s as in med list No meds given until results back No meds given at this time Disco ntinue meds as noted Rest art meds as noted in prescripti on below Pt refuses rx No rx indicated OTC meds only}}. Recheck as scheduled. Discussed pathophysi ology of Allergic Rhinitis and Vasomotor Rhinitis with patient. Discussed that most of the times these type of symptoms are allergic in nature, but there are non allergic causes as well. Reviewed most common allergens, environmen harsh control measures, and OTC meds based on symptoms. Neilmed Sinus rinse 3-4 times a day is probably the most effective of all measures Try OTC Alondra, Zyrtec or Claritin. May try Alondra D, Zyrtec D, or Claritin D as well Try OTC Flonase / Nasacort 2 puffs BID as well Acute exac erbation of chronic obstructive pulmonary disease [id number] J44.1 Chronic {{complain t conditio n disease finding il lness inju ry problem * symptom sign othe r matter}} with {{exacerba tion* prog ression si de effect of treatment severe exacerbati on severe progressio n severe side effect of treatment} }. Prescripti on drug management : {{Add meds to current as noted below Begi n meds as noted below Umana ge medication s as noted below* Con tinue medication s as in med list No meds given until results back No meds given at this time Disco ntinue meds as noted Rest art meds as noted in prescripti on below Pt refuses rx No rx indicated OTC meds only}}. Plan of care: Reduce Impairment , prevent chronic symptoms, require infrequent use of short-acti ng beta 2-agonist (JESI). Maintain (near) normal lung function and normal activity levels. Reduce Risk, prevent exacerbati ons. Minimize need for emergency care, hospitaliz ation. Prevent loss of lung function. Minimize adverse effects of therapy. Patient having acute exacerbati on of COPD though no sign of bronchopul monary infection Spirometry shows severe airway obstructio n We will treat with a course of corticoste roids for 2 weeks Start DuoNeb with nebulizer of at least 2-3 times a day Discontinu e Stiolto and start Trelegy 200, [address] of the chest No Antibiotic s necessary at this time [id number] Evgeny Rodriguez MD [facility] [address] [place] [address] 01/26/2022 10:44:19 01/26/2022 11:55:05 Chronic obstructive pulmonary disease [id number] J44.9 Chronic {{complain t conditio n disease finding il lness inju ry problem * symptom sign othe r matter}} with {{exacerba tion progr ession* si de effect of treatment severe exacerbati on severe progressio n severe side effect of treatment} }. Prescripti on drug management : {{Add meds to current as noted below Begi n meds as noted below Umana ge medication s as noted below* Con tinue medication s as in med list No meds given until results back No meds given at this time Disco ntinue meds as noted Rest art meds as noted in prescripti on below Pt refuses rx No rx indicated OTC meds only}}. Plan of care: Reduce Impairment , prevent chronic symptoms, require infrequent use of short-acti ng beta 2-agonist (JESI). Maintain (near) normal lung function and normal activity levels. Reduce Risk, prevent exacerbati ons. Minimize need for emergency care, hospitaliz ation. Prevent loss of lung function. Minimize adverse effects of therapy. Patient has improved with prednisone but exercise tolerance is still very poor with shortness of breath on minimal exertion affecting her ADLs Six Minute Walk test: Patient walked with a graduated exercise schedule. No Oxygen desaturati on noted with exercise. BP remained within normal range. Advised to join a Pulmonary Rehab programme to learn proper use of MDIs, Diaphragma tic and Pursed Lip breathing techniques and improve exercise tolerance Referral and informatio n provided Recheck complete PFTs Hypertensive disorder 38 869358 I10 Chronic {{complain t conditio n* disease finding i llness inj ury proble m symptom sign othe r matter}}, stable at blood pressure goal. Needs monitoring . Prescripti on drug management : {{Add meds to current as noted below Begi n meds as noted below Umana ge medication s as noted below Cont inue medication s as in med list* Disc ontinue meds as noted No meds given at this time No meds given until results back No rx indicated OTC meds only Pt refuses rx Restart meds as noted in prescripti on below}}. Continue with therapeuti c lifestyle changes (TLC) and continue home bp monitoring . Plan of care will be to use TLC and/or medication s with periodic follow up visits to maintain a safe blood pressure goal of 140/90 or lower. Follow up as scheduled. Follow up as scheduled. Continue Toprol XL 25 mg a day, olmesartan 20 mg a day No evidence of Congestive Heart Failure at this time Multiple n odules of lung [id number] R91.8 chronic {{complain t conditio n disease finding il lness inju ry problem * symptom sign othe r matter}}, stable with no significan t clinical changes. Needs monitoring . Prescripti on drug management : {{Add meds to current as noted below Begi n meds as noted below U[place]a ge medication s as noted below Cont inue medication s as in med list* No meds given until results back No meds given at this time Disco ntinue meds as noted Rest art meds as noted in prescripti on below Pt refuses rx No rx indicated OTC meds only}}. Follow up as scheduled. CT of the chest shows no change in the lung nodules as compared to 1 year ago Follow up serial CT Chest for Lung Nodules based on Fleischner Society Guidelines Allergic rhinitis 563741 04 J30.9 Chronic {{complain t conditio n disease finding il lness inju ry problem * symptom sign othe r matter}} with {{exacerba tion progr ession* si de effect of treatment severe exacerbati on severe progressio n severe side effect of treatment} }. Prescripti on drug management : {{Add meds to current as noted below Begi n meds as noted below U[place]a ge medication s as noted below* Con tinue medication s as in med list No meds given until results back No meds given at this time Disco ntinue meds as noted Rest art meds as noted in prescripti on below Pt refuses rx No rx indicated OTC meds only}}. Recheck as scheduled. Discussed pathophysi ology of Allergic Rhinitis and Vasomotor Rhinitis with patient. Discussed that most of the times these type of symptoms are allergic in nature, but there are non allergic causes as well. Reviewed most common allergens, environmen harsh control measures, and OTC meds based on symptoms. Neilmed Sinus rinse 3-4 times a day is probably the most effective of all measures Try OTC Alondra, Zyrtec or Claritin. May try Alondra D, Zyrtec D, or Claritin D as well Try OTC Flonase / Nasacort 2 puffs BID as well Pulmonary hypertension [id number] I27.20 Chronic {{complain t conditio n disease finding il lness inju ry problem * symptom sign othe r matter}} with {{exacerba tion progr ession* si de effect of treatment severe exacerbati on severe progressio n severe side effect of treatment} }. Prescripti on drug management : {{Add meds to current as noted below Begi n meds as noted below U[place]a ge medication s as noted below* Con tinue medication s as in med list No meds given until results back No meds given at this time Disco ntinue meds as noted Rest art meds as noted in prescripti on below Pt refuses rx No rx indicated OTC meds only}}. Recheck as scheduled. Patient with intermitte nt pedal edema could be related to pulmonary hypertensi on Check echocardio gram Atheroscle rosis of aorta 52427303 I70.0 chronic {{complain t conditio n disease finding il lness inju ry problem * symptom sign othe r matter}}, stable with no significan t clinical changes. Needs monitoring . Prescripti on drug management : {{Add meds to current as noted below Begi n meds as noted below U[place]a ge medication s as noted below Cont inue medication s as in med list* No meds given until results back No meds given at this time Disco ntinue meds as noted Rest art meds as noted in prescripti on below Pt refuses rx No rx indicated OTC meds only}}. Follow up as scheduled. Advised Ecotrin 81 mg / day with meals. May take OTC antacids in case of heartburn [id number] Tejvir MD DENITA [facility] [address] [place] [address] [place] [address] 06/18/2022 13:35:13 06/18/2022 14:51:34 Chronic obstructive pulmonary disease 98607548 J44.9 Chronic {{complain t conditio n disease finding il lness inju ry problem * symptom sign othe r matter}} with {{exacerba tion* prog ression si de effect of treatment severe exacerbati on severe progressio n severe side effect of treatment} }. Prescripti on drug management : {{Add meds to current as noted below Begi n meds as noted below Umana ge medication s as noted below* Con tinue medication s as in med list No meds given until results back No meds given at this time Disco ntinue meds as noted Rest art meds as noted in prescripti on below Pt refuses rx No rx indicated OTC meds only}}. Plan of care: Reduce Impairment , prevent chronic symptoms, require infrequent use of short-acti ng beta 2-agonist (JESI). Maintain (near) normal lung function and normal activity levels. Reduce Risk, prevent exacerbati ons. Minimize need for emergency care, hospitaliz ation. Prevent loss of lung function. Minimize adverse effects of therapy. Patient had an episode of acute exacerbati on of COPD secondary to bacterial pneumonia She responded very well to antibiotic therapy and high-dose corticoste roids and nebulizer Patient was discharged on Omnicef and tapering dose of prednisone She will finish her prednisone tomorrow Lungs are fairly clear with occasional rhonchi Patient advised to continue albuterol and Trelegy Advised Albuterol MDI, 90 mcg / actuation, 2 puffs up to four to six time a day as needed. Advised Trelegy 200 / 62.5 / 25 mcg, 1 puff once a day Advised Duoneb (Ipratropi um 0.5 mg and Albuterol 2.5 mg / 3 ml) by nebulizer 3-4 times a day and Q4 hrs PRN. Use Acapella Valve or Aerobika along with with use of Nebulizer to help loosen secretions May add Mucinex or Mucinex D One tab BID Chest Physical Therapy techniques discussed. Try to do it BID Allergic rhinitis 934371 04 J30.9 Chronic {{complain t conditio n disease finding il lness inju ry problem * symptom sign othe r matter}} with {{exacerba tion progr ession* si de effect of treatment severe exacerbati on severe progressio n severe side effect of treatment} }. Prescripti on drug management : {{Add meds to current as noted below Begi n meds as noted below U[place]a ge medication s as noted below* Con tinue medication s as in med list No meds given until results back No meds given at this time Disco ntinue meds as noted Rest art meds as noted in prescripti on below Pt refuses rx No rx indicated OTC meds only}}. Recheck as scheduled. Discussed pathophysi ology of Allergic Rhinitis and Vasomotor Rhinitis with patient. Discussed that most of the times these type of symptoms are allergic in nature, but there are non allergic causes as well. Reviewed most common allergens, environmen harsh control measures, and OTC meds based on symptoms. Neilmed Sinus rinse 3-4 times a day is probably the most effective of all measures Try OTC Alondra, Zyrtec or Claritin. May try Alondra D, Zyrtec D, or Claritin D as well Try OTC Flonase / Nasacort 2 puffs BID as well Hypertensive disorder 38 843861 I10 Chronic {{complain t conditio n* disease finding i llness inj ury proble m symptom sign othe r matter}}, stable at blood pressure goal. Needs monitoring . Prescripti on drug management : {{Add meds to current as noted below Begi n meds as noted below Umana ge medication s as noted below Cont inue medication s as in med list* Disc ontinue meds as noted No meds given at this time No meds given until results back No rx indicated OTC meds only Pt refuses rx Restart meds as noted in prescripti on below}}. Continue with therapeuti c lifestyle changes (TLC) and continue home bp monitoring . Plan of care will be to use TLC and/or medication s with periodic follow up visits to maintain a safe blood pressure goal of 140/90 or lower. Follow up as scheduled. Follow up as scheduled. Continue Toprol XL 25 mg a day, olmesartan 20 mg a day No evidence of Congestive Heart Failure at this time Atheroscle rosis of aorta 29719027 I70.0 chronic {{complain t conditio n disease finding il lness inju ry problem * symptom sign othe r matter}}, stable with no significan t clinical changes. Needs monitoring . Prescripti on drug management : {{Add meds to current as noted below Begi n meds as noted below Umana ge medication s as noted below Cont inue medication s as in med list* No meds given until results back No meds given at this time Disco ntinue meds as noted Rest art meds as noted in prescripti on below Pt refuses rx No rx indicated OTC meds only}}. Follow up as scheduled. Noted on chest x-ray and CT chest in the past Advised Ecotrin 81 mg / day with meals. May take OTC antacids in case of heartburn Pulmonary hypertension 24871990 I27.20 Chronic {{complain t conditio n disease finding il lness inju ry problem * symptom sign othe r matter}} with {{exacerba tion progr ession* si de effect of treatment severe exacerbati on severe progressio n severe side effect of treatment} }. Prescripti on drug management : {{Add meds to current as noted below Begi n meds as noted below U[place]a ge medication s as noted below* Con tinue medication s as in med list No meds given until results back No meds given at this time Disco ntinue meds as noted Rest art meds as noted in prescripti on below Pt refuses rx No rx indicated OTC meds only}}. Recheck as scheduled. Patient has mild hypertensi on on previous echocardio gram No evidence of Congestive Heart Failure at this time Rheumatoid arthritis 698 61568 M06.9 chronic {{complain t conditio n disease finding il lness inju ry problem * symptom sign othe r matter}}, stable with no significan t clinical changes. Needs monitoring . Prescripti on drug management : {{Add meds to current as noted below Begi n meds as noted below Umana ge medication s as noted below Cont inue medication s as in med list* No meds given until results back No meds given at this time Disco ntinue meds as noted Rest art meds as noted in prescripti on below Pt refuses rx No rx indicated OTC meds only}}. Follow up as scheduled. Patient seeing rheumatkiarra traore and currently on Plaquenil Chronic ki dney disease stage 3A [id number] N18.31 chronic {{complain t conditio n disease finding il lness inju ry problem * symptom sign othe r matter}}, stable with no significan t clinical changes. Needs monitoring . Prescripti on drug management : {{Add meds to current as noted below Begi n meds as noted below [place] ge medication s as noted below Cont inue medication s as in med list* No meds given until results back No meds given at this time Disco ntinue meds as noted Rest art meds as noted in prescripti on below Pt refuses rx No rx indicated OTC meds only}}. Follow up as scheduled. 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 Needs monitoring . Prescripti on drug management : {{Add meds to current as noted below Begi n meds as noted below U[place]a ge medication s as noted below Cont inue medication s as in med list* No meds given until results back No meds given at this time Disco ntinue meds as noted Rest art meds as noted in prescripti on below Pt refuses rx No rx indicated OTC meds only}}. Follow up as scheduled. 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 Prescripti on drug management : {{Add meds to current as noted below Begi n meds as noted below U[place]a ge medication s as noted below* Con tinue medication s as in med list No meds given until results back No meds given at this time Disco ntinue meds as noted Rest art meds as noted in prescripti on below Pt refuses rx No rx indicated OTC meds only}}. Plan of care: Reduce Impairment , prevent chronic symptoms, require infrequent use of short-acti ng beta 2-agonist (JESI). Maintain (near) normal lung function and normal activity levels. Reduce Risk, prevent exacerbati ons. Minimize need for emergency care, hospitaliz ation. Prevent loss of lung function. Minimize adverse effects of therapy. Pulmonary function studies show moderately severe COPD with FEV1 FVC ratio 54% predicted Patient seems to be having intermitte nt exacerbati on of obstructiv e lung disease secondary to environmen harsh factors like allergies and environmen harsh pollutants with heat and humidity also contributi ng to it. No obvious evidence of broncho-pu lmonary infection. Advised Albuterol MDI, 90 mcg / actuation, 2 puffs up to four to six time a day as needed. Advised Trelegy 200 / 62.5 / 25 mcg, 1 puff once a day Advised Duoneb (Ipratropi um 0.5 mg and Albuterol 2.5 mg / 3 ml) by nebulizer 3-4 times a day and Q4 hrs PRN.Use Acapella Valve or Aerobika along with with use of Nebulizer to help loosen secretions May add Mucinex or Mucinex D One tab BIDChest Physical Therapy techniques discussed. Try to do it BID CT of the chest shows increasing tree-in-bu d opacities suggestive of atypical mycobacter ial infection but patient has no constituti onal symptoms of fever, night sweats or sputum production Recheck CT chest in 4 months Allergic rhinitis [id number] J30.9 Chronic {{complain t conditio n disease finding il lness inju ry problem * symptom sign othe r matter}} with {{exacerba tion progr ession* si de effect of treatment severe exacerbati on severe progressio n severe side effect of treatment} }. Prescripti on drug management : {{Add meds to current as noted below Begi n meds as noted below Umana ge medication s as noted below* Con tinue medication s as in med list No meds given until results back No meds given at this time Disco ntinue meds as noted Rest art meds as noted in prescripti on below Pt refuses rx No rx indicated OTC meds only}}. Recheck as scheduled. Discussed pathophysi ology of Allergic Rhinitis and Vasomotor Rhinitis with patient. Discussed that most of the times these type of symptoms are allergic in nature, but there are non allergic causes as well. Reviewed most common allergens, environmen harsh control measures, and OTC meds based on symptoms. Neilmed Sinus rinse 3-4 times a day is probably the most effective of all measures Try OTC Alondra, Zyrtec or Claritin. May try Alondra D, Zyrtec D, or Claritin D as well Try OTC Flonase / Nasacort 2 puffs BID as well [id number] Evgeny Rodriguez MD [facility] [address] [place] [address] 07/08/2023 12:03:14 07/08/2023 13:05:19 Allergic rhinitis [id number] J30.9 Chronic {{complain t conditio n disease finding il lness inju ry problem * symptom sign othe r matter}} with {{exacerba tion progr ession* si de effect of treatment severe exacerbati on severe progressio n severe side effect of treatment} }. Prescripti on drug management : {{Add meds to current as noted below Begi n meds as noted below Umana ge medication s as noted below* Con tinue medication s as in med list No meds given until results back No meds given at this time Disco ntinue meds as noted Rest art meds as noted in prescripti on below Pt refuses rx No rx indicated OTC meds only}}. Recheck as scheduled. Discussed pathophysi ology of Allergic Rhinitis and Vasomotor Rhinitis with patient. Discussed that most of the times these type of symptoms are allergic in nature, but there are non allergic causes as well. Reviewed most common allergens, environmen harsh control measures, and OTC meds based on symptoms. Neilmed Sinus rinse 3-4 times a day is probably the most effective of all measures Try OTC Alondra, Zyrtec or Claritin. May try Alondra D, Zyrtec D, or Claritin D as well Try OTC Flonase / Nasacort 2 puffs BID as well Hypertensive disorder [id number] I10 Chronic {{complain t conditio n* disease finding i llness inj ury proble m symptom sign othe r matter}}, stable at blood pressure goal. Needs monitoring . Prescripti on drug management : {{Add meds to current as noted below Begi n meds as noted below Umana ge medication s as noted below Cont inue medication s as in med list* Disc ontinue meds as noted No meds given at this time No meds given until results back No rx indicated OTC meds only Pt refuses rx Restart meds as noted in prescripti on below}}. Continue with therapeuti c lifestyle changes (TLC) and continue home bp monitoring . Plan of care will be to use TLC and/or medication s with periodic follow up visits to maintain a safe blood pressure goal of 140/90 or lower. Follow up as scheduled. Follow up as scheduled. Continue Toprol XL 25 mg a day, olmesartan 20 mg a day No evidence of Congestive Heart Failure at this time Atheroscle rosis of aorta [id number] I70.0 chronic {{complain t conditio n disease finding il lness inju ry problem * symptom sign othe r matter}}, stable with no significan t clinical changes. Needs monitoring . Prescripti on drug management : {{Add meds to current as noted below Begi n meds as noted below Umana ge medication s as noted below Cont inue medication s as in med list* No meds given until results back No meds given at this time Disco ntinue meds as noted Rest art meds as noted in prescripti on below Pt refuses rx No rx indicated OTC meds only}}. Follow up as scheduled. Noted on chest x-ray and CT chest in the past Advised Ecotrin 81 mg / day with meals. May take OTC antacids in case of heartburn Chronic ki dney disease stage 3A [id number] N18.31 chronic {{complain t conditio n disease finding il lness inju ry problem * symptom sign othe r matter}}, stable with no significan t clinical changes. Needs monitoring . Prescripti on drug management : {{Add meds to current as noted below Begi n meds as noted below Umana ge medication s as noted below Cont inue medication s as in med list* No meds given until results back No meds given at this time Disco ntinue meds as noted Rest art meds as noted in prescripti on below Pt refuses rx No rx indicated OTC meds only}}. Follow up as scheduled. 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 Needs monitoring . Prescripti on drug management : {{Add meds to current as noted below Begi n meds as noted below Umana ge medication s as noted below Cont inue medication s as in med list* No meds given until results back No meds given at this time Disco ntinue meds as noted Rest art meds as noted in prescripti on below Pt refuses rx No rx indicated OTC meds only}}. Follow up as scheduled. 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 Prescripti on drug management : {{Add meds to current as noted below Begi n meds as noted below Umana ge medication s as noted below* Con tinue medication s as in med list No meds given until results back No meds given at this time Disco ntinue meds as noted Rest art meds as noted in prescripti on below Pt refuses rx No rx indicated OTC meds only}}. Recheck as scheduled. Patient has mild hypertensi on on previous echocardio gram No evidence of Congestive Heart Failure at this time Chronic ob structive pulmonary disease [id number] J44.9 Chronic {{complain t conditio n disease finding il lness inju ry problem * symptom sign othe r matter}} with {{exacerba tion* prog ression si de effect of treatment severe exacerbati on severe progressio n severe side effect of treatment} }. Prescripti on drug management : {{Add meds to current as noted below Begi n meds as noted below Umana ge medication s as noted below* Con tinue medication s as in med list No meds given until results back No meds given at this time Disco ntinue meds as noted Rest art meds as noted in prescripti on below Pt refuses rx No rx indicated OTC meds only}}. Plan of care: Reduce Impairment , prevent chronic symptoms, require infrequent use of short-acti ng beta 2-agonist (JESI). Maintain (near) normal lung function and normal activity levels. Reduce Risk, prevent exacerbati ons. Minimize need for emergency care, hospitaliz ation. Prevent loss of lung function. Minimize adverse effects of therapy. Pulmonary function studies show moderately severe COPD with FEV1 FVC ratio 54% predicted Patient seems to be having intermitte nt exacerbati on of obstructiv e lung disease secondary to environmen harsh factors like allergies and environmen harsh pollutants with heat and humidity also contributi ng to it.No obvious evidence of broncho-pu lmonary infection. Patient had an acute exacerbati on secondary to multifocal pneumonia and recovered well with antibiotic s and steroids Advised Albuterol MDI, 90 mcg / actuation, 2 puffs up to four to six time a day as needed. Advised Trelegy 200 / 62.5 / 25 mcg, 1 puff once a day Advised Duoneb (Ipratropi um 0.5 mg and Albuterol 2.5 mg / 3 ml) by nebulizer 3-4 times a day and Q4 hrs PRN.Use Acapella Valve or Aerobika along with with use of Nebulizer to help loosen secretions May add Mucinex or Mucinex D One tab BIDChest Physical Therapy techniques discussed. Try to do it BID CT of the chest shows increasing tree-in-bu d opacities suggestive of atypical mycobacter ial infection but patient has no constituti onal symptoms of fever, night sweats or sputum production Recheck CT chest in 4 months Rheumatoid arthritis [id number] M06.9 chronic {{complain t conditio n disease finding il lness inju ry problem * symptom sign othe r matter}}, stable with no significan t clinical changes. Needs monitoring . Prescripti on drug management : {{Add meds to current as noted below Begi n meds as noted below Umana ge medication s as noted below Cont inue medication s as in med list* No meds given until results back No meds given at this time Disco ntinue meds as noted Rest art meds as noted in prescripti on below Pt refuses rx No rx indicated OTC meds only}}. Follow up as scheduled. 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 Needs monitoring Prescripti on drug management : No meds given at this time. Follow up as scheduled. Patient has patchy pulmonary fibrosis seen on imaging studies in the past There is no evidence of idiopathic pulmonary fibrosis or significan t reduction in diffusing capacity or hypoxemia Continue to monitor closely Pneumonia [id number] J18. 9 Cor pulmonale [id number] I 27.9 Chronic and unstable Patient has edema secondary to use of steroids Torsemide 10 mg a day for a few days and then as needed [id number] Evgeny Rodriguez MD [facility] [facility] [address] [place] [address] 07/19/2023 12:31:38 07/19/2023 12:53:00 Chronic obstructive pulmonary disease [id number] J44.9 Chronic {{complain t conditio n disease finding il lness inju ry problem * symptom sign othe r matter}} with {{exacerba tion progr ession* si de effect of treatment severe exacerbati on severe progressio n severe side effect of treatment} }. Prescripti on drug management : {{Add meds to current as noted below Begi n meds as noted below Umana ge medication s as noted below* Con tinue medication s as in med list No meds given until results back No meds given at this time Disco ntinue meds as noted Rest art meds as noted in prescripti on below Pt refuses rx No rx indicated OTC meds only}}. Plan of care: Reduce Impairment , prevent chronic symptoms, require infrequent use of short-acti ng beta 2-agonist (JESI). Maintain (near) normal lung function and normal activity levels. Reduce Risk, prevent exacerbati ons. Minimize need for emergency care, hospitaliz ation. Prevent loss of lung function. Minimize adverse effects of therapy. Pulmonary function studies show moderately severe COPD with FEV1 FVC ratio 54% predicted Patient seems to be having intermitte nt exacerbati on of obstructiv e lung disease secondary to environmen harsh factors like allergies and environmen harsh pollutants with heat and humidity also contributi ng to it.No obvious evidence of broncho-pu lmonary infection. Advised Albuterol MDI, 90 mcg / actuation, 2 puffs up to four to six time a day as needed. Advised Trelegy 200 / 62.5 / 25 mcg, 1 puff once a day Advised Duoneb (Ipratropi um 0.5 mg and Albuterol 2.5 mg / 3 ml) by nebulizer 3-4 times a day and Q4 hrs PRN.Use Acapella Valve or Aerobika along with with use of Nebulizer to help loosen secretions May add Mucinex or Mucinex D One tab BIDChest Physical Therapy techniques discussed. Try to do it BID Hypertensive disorder 38 032546 I10 Chronic {{complain t conditio n* disease finding i llness inj ury proble m symptom sign othe r matter}}, stable at blood pressure goal. Needs monitoring . Prescripti on drug management : {{Add meds to current as noted below Begi n meds as noted below Umana ge medication s as noted below Cont inue medication s as in med list* Disc ontinue meds as noted No meds given at this time No meds given until results back No rx indicated OTC meds only Pt refuses rx Restart meds as noted in prescripti on below}}. Continue with therapeuti c lifestyle changes (TLC) and continue home bp monitoring . Plan of care will be to use TLC and/or medication s with periodic follow up visits to maintain a safe blood pressure goal of 140/90 or lower. Follow up as scheduled. Follow up as scheduled. Continue Toprol XL 25 mg a day, olmesartan 20 mg a day No evidence of Congestive Heart Failure at this time Health Concerns Section Related Observation LastModified by Organization Lorin spencer LastModified Time None Recorded Concern Status LastModified by Organization Details LastModified Time None Recorded Advance Directives Directive N: Payers Encounter Date Sequence Insurance Name Policy Number Policy Azul Covered Member ID Azul Member ID Guarantor Name 01/26/2022 1 [employer] (MEDICARE REPLACEMENT/A DVANTAGE - PPO) Gilda Chan [id number] Gilda Yrn Scheehser 06/18/2022 1 [facility] (MEDICARE REPLACEMENT/A DVANTAGE - PPO) [id number] Gilda A Scheehser [id number] [place] A Scheehser 02/07/2023 1 [facility] (MEDICARE REPLACEMENT/A DVANTAGE - PPO) [id number] [place] Yrn Scheehser [id number] [place] Yrn Scheehser 07/08/2023 1 [facility] (MEDICARE REPLACEMENT/A DVANTAGE - PPO) [id number] Gilda A Scheehser [id number] Gilda Yrn Scheehser 07/19/2023 1 [facility] (MEDICARE REPLACEMENT/A DVANTAGE - PPO) [id number] Gilda Pool Scheehser [id number] Gilda Pool Scheehser Notes Date Note Type Note Provider Name and Address Organization Details Recorded Time 01/26/2022 text/html Patient experien devante expiratory wheezing on and off Patient's exercise tolerance has diminished with symptoms of SOB and fatigue, associated with walking, climbing stairs, working. Sometime there is associated chest tightness, and palpitations Six Minute Walk test: Patient walked with a graduated exercise schedule. No Oxygen desaturation noted with exercise. BP remained within normal range. Blood Pressure seems to be under reasonable control most of the time on current regimen of medications. Patient is complaining of leg edema on and off which is worse at the end of the day. Propping up legs helps and swelling is better in the mornings. CT chest and PFTs noted Evgeny Rodriguez MD [address] [address], [place], [address], [facility], [facility] 01/26/2022 11:51:56 06/18/2022 text/html Patient was hospitalized for acute exacerbation of COPD secondary to bacterial pneumonia She received antibiotic therapy along with aggressive bronchodilator therapy in the form of DuoNeb and corticosteroids She has responded very well Complains of some ear congestion and some tinnitus but there is no more mucus production and she is almost finished with the steroids and antibiotics Exercise tolerance is gradually coming back to normal Nose is congested and she is having sneezing attacks related to pollen around her house Blood pressure was high when she was discharged from the hospital but is gradually trending to normal levels now Evgeny Rodriguez MD [address], [place], [address], [facility], [facility] 06/18/2022 14:53:33 02/07/2023 text/html Patient having increasing cough and shortness of breath PFTs noted CT of the chest noted Patient complains of sinus pressure, dull headache, nasal stuffiness and postnasal drip. There is cough especially at night. Mucus is usually clear. Evgeny Rodriguez MD [address], [place], [address], [facility], [facility] 02/07/2023 13:08:19 07/08/2023 text/html Patient hospital ized for multifocal pneumonia and exacerbation of COPD He recovered well with antibiotic therapy and aggressive corticosteroids and being tapered off steroids slowly There is considerable pedal edema Evgeny Rodriguez MD [address], [place], [address], [facility], [facility] 07/08/2023 13:10:08 07/19/2023 text/html Patient experien devante expiratory wheezing on and off with cough and shortness of breath primarily from changes in environmental conditions Blood Pressure seems to be under reasonable control most of the time on current regimen of medications.BP log from home reviewed with patient Evgeny Rodriguez MD [address], [place], [address], [facility], [facility] 07/19/2023 12:58:33 OBGyn Episode No OBEpisode recorded.
[2024-05-01 09:20] VITALS: BP 160/76
== END 2024-05-01 10:15 | disposition home or self-care (01) ==
PROVIDERS: PCP Internal Medicine; Visit Provider Internal Medicine Rheumatology
DX: M06.9 Rheumatoid arthritis, unspecified (principal); Z79.899 Other long term (current) drug therapy; M25.551 Pain in right hip
CPT/HCPCS: 99214; G2211

== ENCOUNTER 2024-05-01 08:45 | Outpatient (REF) | payer OTHER, SELFPAY ==
--- OUTSIDE RECORDS SUMMARY | 2024-05-01 11:24 | XMS_ITS | Continuity of Care Document ---
Author Organization Demarcus Nichols MD P A Address [address] [place] [address] Phone Care Team Providers Care Archives Director Name Role Phone Mesfin Stuart NP Unavailable [...] Copied on Encounter Demarcus Nichols MD PA, [address] [place] [address], [id number], [place] tel:[phone] Main Office Rheumatoid Arthritis (chief complaint) Rheumatoid arthritis with rheumatoid factor of multiple sites without organ or systems involvementChroni c fatigue, unspecifiedLong term (current) use of antimetabolite agentLong term use of immunosuppressant Immunodeficiency due to drugsEncounter for therapeutic drug level monitoringVenous insufficiency of lower extemity Sep-2 4 Sade Toure. [address] [place] [address], [id number] , [place]. tel: [phone] Demarcus WHEELER, [address] [place] [address], [id number], tel:[phone] [facility] Immunodeficiency due to drugsLong term (current) use of antimetabolite agentRheumatoid arthritis with rheumatoid factor of multiple sites without organ or systems involvementEncoun ter for therapeutic drug level monitoring 4 Sade Toure. [facility], [id number] , . tel: [phone] Demarcus WHEELER, [address] [place] [address], [id number], tel:[phone] [facility] Inflammatory polyarthropathyRh eumatoid arthritis with rheumatoid factor of multiple sites without organ or systems involvementLong term (current) use of antimetabolite agentImmunodefici ency due to drugs 3 Sade Toure. [address] [place] [address], [id number] , . tel: [phone] Demarcus WHEELER, [address] [place] [address], [id number], tel:[phone] [facility] No Information 3 Sade Toure. [address] [place] [address], [id number] , . tel: [phone] Demarcus WHEELER, [address] [place] [address], [id number], tel:[phone] [facility] Chronic fatigue, unspecifiedEncoun ter for therapeutic drug level monitoringImmunod eficiency due to drugsRheumatoid arthritis with rheumatoid factor of multiple sites without organ or systems involvement 3 Sade Toure. [facility] [address], [id number] , . tel: [phone] Demarcus WHEELER, [address] [place] [address], [id number], tel:[phone] [facility] Other correction (current) drug therapyChronic fatigue, unspecifiedChroni c obstructive pulmonary disease, unspecifiedRheuma toid arthritis with rheumatoid factor of multiple sites without organ or systems involvement 3 Sade Toure. [address], [id number] , . tel: [phone] Demarcus WHEELER, [address] [place] [address], [id number], [place] tel:[phone] [facility] Other correction (current) drug therapyLong term (current) use of systemic steroidsChronic fatigue, unspecifiedRheuma toid arthritis with rheumatoid factor of multiple sites without organ or systems involvement 3 Sade Toure. [address], [id number] , [place]. tel: [phone] Demarcus WHEELER, [address] [place] [address], [id number], tel:[phone] [facility] No Information 3 Sade Toure. [address], [id number] , [place]. tel: [phone] Demarcus WHEELER, [address] [place] [address], [id number], tel:[phone] [facility] No Information 2 Sade Toure. [address], [id number] , [place]. tel: [phone] Demarcus WHEELER, [address], [id number], [place] tel:[phone] Main Office Pain in unspecified jointRheumatoid arthritis with rheumatoid factor of multiple sites without organ or systems involvementInflam matory polyarthropathyOt her terminal manager (current) drug therapy 2 Sade Toure. [address], [id number] , [place]. tel: [phone] Demarcus WHEELER, [address], [id number], tel:[phone] Main Office Pain in unspecified jointPain in right kneeInflammatory polyarthropathyLo ng term (current) use of systemic steroids 2 Sade Toure. [address], [id number] , . tel: [phone] Demarcus WHEELER, [address], [id number], tel:[phone] [facility] No Information 9 Sade Toure. [address], [id number] , . tel: [phone] Family History Family Member Type Diagnosis Age At Onset Mother Problem (finding) Rheumatological or Auto immune disease Father Problem (finding) Rheumatological or Auto immune disease Payers Payer name Insurance type Covered democrat ID Authoriza tion(s) No Information Social History [...] involvement assessment Chronic fatigue, unspecified Nov assessment joint terminal attack controller (current) use of antim etabolite agent assessment [facility] use of immunosuppressa nt assessment Immunodeficiency due to drugs Se assessment Encounter for therapeutic drug l evel monitoring assessment Venous insufficiency of lower ex temity Mental Status Date Cognitive Assessment Orientation - [place] ed to time, place, person, situation. Patient Care Teams Name Effective Dates (start - stop) Status Members No Information
--- OUTSIDE RECORDS SUMMARY | 2024-05-01 11:24 | XMS_ITS ---
[facility] Address [address] [place] [address] Care Team Providers Care Electric System Operator Name Role Phone Hernandez CERVANTES, Paulo Primary Care Provider REASON FOR VISIT Refill Medications Medication SIG (Take, Route, Frequency, Duration) Notes Start Date End Date Status Albuterol Sulfate HFA 108 (90 Base) MCG/ACT 1 puff as needed Inhalation every 4 hrs for 90 days 01/09/2024 Active Encounters Encounter Location Date Provider Diagnosis [facility] [place] [address] [place], [place] [id number] 03/19/2024 Paulo Ng Chronic obstructive pulmonary disease, unspecified J44.9 Assessments Encounter Date Diagnosis (ICD Code) Assessment Notes Treat ment Notes Treatment Clinical Notes 03/19/2024 Chronic obstructive pulmonary disease, unspecified (ICD-10 - J44.9) [facility] [id number] Plan Of Treatment Medication Medication Name Sig Start Date Stop Date Notes Albuterol Sulfate HFA 108 (9 0 Base) MCG/ACT 1 puff as needed Inhalation every 4 hrs for 90 days 01/09/2024 Next Appt Details Provider Name:Paulo Ng , 06/22/2024 02:40:00 PM, [address], [place], [place], [id number], Progress Notes * Gilda CHAN ADOB:1935 (88 yo F)Acc No.[id number]:03/19/2024 Patient:?Gilda CHAN :1935???Age:88 Y???Sex:Female Address:[address] [place] [id number] * Refills? Refill Albuterol Sulfate HFA Aerosol Solution, 108 (90 Base) MCG/ACT, Inhalation, 4, 1 puff as needed, every 4 hrs, 90 days * true * Date:? Generated for Phani elkins/Marcus/eTransmitting on:?05/01/2024 08:13 AM BEAD CUTTER
--- OUTSIDE RECORDS SUMMARY | 2024-05-01 11:24 | XMS_ITS | Patient Health Record ---
Author Organization [employer] Address [address] [place] [address] Care Team Providers Care Floor Scraper Name Role Phone Hernandez CERVANTES, [facility] Primary Care Provider Alan Villanueva DO Unavailable [phone] Serena Hackett DO Unavailable [phone] Allergies Allergen (clinical drug ingredient) Drug/Non Drug Allergy documented on EMR Reaction Allergy Type Onset Date Status Latex Latex Unknown Allergy 03/02/2022 Active Substance with sulfonamide structure and antibacterial mechanism of action (substance) Sulfa Antibiotics Unknown Drug Allergy Active Results Component Value Reference Range Notes Complete Blood Count with Di fferential/Platelet (CBC) Reviewed date:04/28/2024 01:46:24 PM Interpretation: Performing Lab:[facility], [address] [place] [id number], Phone - [phone], Director - Shalom Notes/Report: WBC 6.9 3.4-10.8 [...] Ratio Reviewed date:04/28/2024 01:46:25 PM Interpretation: Performing Lab:[facility], [address] [place], [place] [id number], Phone - [phone], Director - MDJodry Notes/Report: Cholesterol, Total 125 100-199 mg/dL Triglycerides 92 0-149 mg/dL HDL Cholesterol 52 >39 mg/dL VLDL Cholesterol Ayo 17 5-40 mg/dL LDL Chol Calc ([facility]) 56 0-99 mg/dL T. Chol/HDL Ratio 2.4 0.0-4.4 ratio T. Chol/HDL Ratio Men Women 1/2 Avg.Risk 3.4 3.3 Avg.Risk 5.0 4.4 2X Avg.Risk 9.6 7.1 3X Avg.Risk 23.4 11.0 Comprehensive Metabolic Pane l 14 (CMP) Reviewed date:04/28/2024 01:46:25 PM Interpretation: Performing Lab:[facility], [address] [place], [place] [id number], Phone - [phone], Director - MDJodry Notes/Report: Glucose 67 70-99 mg/dL BUN 31 [...] Panel With Total Rayne sterol/HDL Ratio Reviewed date:09/11/2023 08:37:16 PM Interpretation: Performing Lab:[facility] [address] [id number], Phone - [phone], Director - MDJodry Notes/Report: Cholesterol, Total 143 100-199 mg/dL Triglycerides 81 0-149 mg/dL HDL Cholesterol 52 >39 mg/dL VLDL Cholesterol Ayo 16 5-40 mg/dL LDL Chol Calc ([facility]) 75 0-99 mg/dL T. Chol/HDL Ratio 2.8 0.0-4.4 ratio T. Chol/HDL Ratio Men Women 1/2 Avg.Risk 3.4 3.3 Avg.Risk 5.0 4.4 2X Avg.Risk 9.6 7.1 3X Avg.Risk 23.4 11.0 Complete Blood Count with Di fferential/Platelet (CBC) Reviewed date:09/11/2023 08:37:16 PM Interpretation:RBC 3.75 Performing Lab:[facility] [address] [id number], Phone - [phone], Director - MDNoey Notes/Report: WBC 5.4 3.4-10.8 x10E3/uL RBC 3.75 3.77-5.28 x10E6/uL Hemoglobin 11.6 11.1-15.9 g/dL Hematocrit 35.6 34.0-46.6 % MCV 95 79-97 fL MCH 30.9 26.6-33.0 pg MCHC 32.6 31.5-35.7 g/dL RDW 13.3 11.7-15.4 % Platelets 252 150-450 x10E3/uL Neutrophils 57 Not Estab. % Lymphs 27 Not Estab. % Monocytes 12 Not Estab. % Eos 3 Not Estab. % Basos 1 Not Estab. % Neutrophils (Absolute) 3.1 1.4-7.0 x10E3/uL Lymphs (Absolute) 1.5 0.7-3.1 x10E3/uL Monocytes(Absolute) 0.6 0.1-0.9 x10E3/uL Eos (Absolute) 0.2 0.0-0.4 x10E3/uL Baso (Absolute) 0.0 0.0-0.2 x10E3/uL Immature Granulocytes 0 Not Estab. % Immature Grans (Abs) 0.0 0.0-0.1 x10E3/uL TSH reflex to T4F Reviewed date:09/11/2023 08:37:16 PM Interpretation: Performing Lab:[facility] [address] [id number], Phone - [phone], Director - MDJodry Notes/Report: TSH 2.260 0.450-4.500 uIU/mL Vitamin D, 25-Hydroxy Reviewed date:09/11/2023 08:37:15 PM Interpretation: Performing Lab:[facility] [address] [id number], Phone - [phone], Director - MDJodry Notes/Report: Vitamin D, 25-Hydroxy 56.0 30.0-100.0 ng/mL Vitamin D deficiency has been defined by the [place] [employer] and an Endocrine Society practice guideline as a level of serum 25-OH vitamin D less than 20 ng/mL (1,2). The Endocrine Society went on to further define vitamin D insufficiency as a level between 21 and 29 ng/mL (2). 1. IOM ([place] [employer]). 2010. Dietary reference intakes for calcium and D. [place]: The National Academies Press. 2. Nadine MF, Mao NC, Francine JENSEN, et al. Evaluation, treatment, and prevention of vitamin D deficiency: an Endocrine Society clinical practice guideline. JCEM. 2010; 96(7):1911-30. Comprehensive Metabolic Pane l 14 (CMP) Reviewed date:09/11/2023 08:37:15 PM Interpretation:Cr 1.40, gfr 36 Performing Lab:[facility] [address] [id number], Phone - [phone], Director - MDJodry Notes/Report: Glucose 97 70-99 mg/dL BUN 24 8-27 mg/dL Creatinine 1.40 0.57-1.00 mg/dL eGFR 36 >59 mL/min/1.73 BUN/Creatinine Ratio 17 12-28 Sodium 139 134-144 mmol/L Potassium 4.6 3.5-5.2 mmol/L Chloride 102 96-106 mmol/L Carbon Dioxide, Total 22 20-29 mmol/L Calcium 10.0 8.7-10.3 mg/dL Protein, Total 6.6 6.0-8.5 g/dL Albumin 4.1 3.7-4.7 g/dL Globulin, Total 2.5 1.5-4.5 g/dL Bilirubin, Total 0.4 0.0-1.2 mg/dL Alkaline Phosphatase 57 44-121 IU/L AST (SGOT) 24 0-40 IU/L ALT (SGPT) 18 0-32 IU/L Reason For Referral No Information Medications Medication SIG (Take, Route, Frequency, Duration) Notes Start Date End Date Status Folic Acid 1 MG 1 tablet Orally Once a day for 90 days 01/19/2023 Active Albuterol Sulfate HFA 108 (90 Base) MCG/ACT 1 puff as needed Inhalation every 4 hrs for 90 days 01/09/2024 Active predniSONE 5 MG 1 tablet Orally Once a day Active Hydroxychloroquine Sulfate 300 MG Take 1.5 tablets Orally once a day for 90 days 09/07/2023 Active BD Integra Syringe 25G X 5/8 3 ML as directed for 90 days USE DIRECTED prn Active Tylenol PRN Active Ipratropium-Albuterol 0.5-2.5 (3) MG/3ML 3 mL as needed Inhalation every 6 hrs Active Vasculera - as directed Orally 630mg once daily Active Cyanocobalamin 1000 MCG/ML 1 mL Injectio n Monthly for 180 days Active Albuterol Sulfate (2.5 MG/3ML) 0.083% 3 mL as needed Inhalation every 6 hrs 0.5mg/ml Active predniSONE 10 MG (21) 1 tablet Orally Once a day Not-Taking rOPINIRole HCl 0.25 MG 1 tablet Orally twice a day for 90 days as directed bid po Active Vitamin D (Ergocalciferol) 1.25 MG (97013 UT) 1 capsule Orally weekly for 90 days 06/24/2023 Active Trelegy Ellipta 200-62.5-25 MCG/ACT 1 puff Inhalation Once a day Active Metoprolol Succinate 25 mg 0.5 tablets p o daily for 90 days 03/15 tab qd Active Olmesartan Medoxomil 20 MG 0.5 tablet Or ally once daily for 90 days /2 tablet 07/16/2022 Active Tumeric Curcumin 500mg 1 tablet orally once a day Active Immunizations Vaccine Route Administration Date Status Comme nts Boostrix IM Intramuscular 01/24/2023 Administered Fluad Vaccine, Quadrivalent PFS Unknown 01/01/2020 Administered Fluad Vaccine, Quadrivalent PFS Unknown 01/28/2021 Administered Influenza Vaccine Unknown 11/12/2021 Administered Pneumovax 23 (PPSV23) Unknown 01/24/2008 Administered Prevnar 13 (PCV13) Unknown 06/11/2014 Administered Shingrix Unknown 01/10/2020 Administered Shingrix Unknown 06/13/2020 Administered Tetanus Diphtheria Pertussis Vaccine (Tdap) Unknown 01/01/2014 Administered Social History Marital status: Question Answer Notes Status: Alcohol Screen Question Answer Notes Do you currently consume, or have you in the pas t consumed, alcohol? No Did you have a drink containing alcohol in the p ast year? No Points 0 Interpretation Negative EASI Question Answer Notes 1. Have you relied on people for any of the following: bathing, dressing, shopping or meals? No 2. Has anyone prevented you from getting food, clothes, medications, glasses, hearing aids or medical care, or from being with people you wanted to be with? No 3. Have you been upset becau se someone talked to you in a way that made you feel shamed or threatened? No 4. Has anyone tried to force you to sign papers or to use your money against your will? No 5. Has anyone made you afrai d, touched you in ways that you did not want, or hurt you physically? No 6. PROVIDER: Elder abuse may be associated with findings such as: poor eye contact, withdrawn nature, malnourishment, hygiene issues, cuts, bruises, inappropriate clothing or medication compliance issues. Did you notice any of these today or in the last 12 months? No PROVIDER ASSESSMENT GREEN Actions Taken Provided patient edu cation materials related to the prevention of elder abuse Questionnaire Question Answer Notes 1. In the past six months, have you accidentally leaked urine? No Physical Activity Assessment Question Answer Notes 1. How physically active are you? Very active 2. Current types of exercise: Walking,Housework 3. Current minutes of exercise per day: 30-45 4. 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) Active confirmed Problem Vitamin B deficiency (86693757) Deficiency of other specified B group vitamins (E53.8) Active confirmed Ricky-[id number] 1144- Problem Vitamin D deficiency (00632066) Vitamin D deficiency, unspecified (E55.9) Active confirmed Ricky-162 1144- Problem Tobacco user (660501566) Nicotine dependence, other tobacco product, uncomplicated (F17.290) Active confirmed Ricky-162 1144- Problem Adjustment disorder (38484520) Adjustment disorder, unspecified (F43.20) Active confirmed Ricky-162 1144- Problem Supraventricular tachycardia (4883691) Supraventricular tachycardia (I47.1) Active confirmed Ricky-162 1144- Problem Chronic obstructive pulmonary disease (25574524) Chronic obstructive pulmonary disease, unspecified (J44.9) Active confirmed Ricky-162 1144- Problem Fatty liver (390935012) Fatty (change of) liver, not elsewhere classified (K76.0) Active confirmed Ricky-162 1144- Problem Rheumatoid arthritis (28098765) Rheumatoid arthritis, unspecified (M06.9) Active confirmed Ricky-162 1144- Problem 442462247 Mild anemia (D64.9) Active confirmed Problem Bone density finding (740252408) Oth disrd of bone density and structure, unspecified site (M85.80) Active confirmed Ricky-162 1144- Problem Chronic kidney disease stage 3 (disorder) (941479226) Chronic kidney disease, stage 3 (moderate) (N18.3) Active confirmed Ricky-162 1144- Problem Fatigue (92772452) Other fatigue (R53.83) Active confirmed Ricky-162 1144- Problem Essential hypertension (63577143) Essential (primary) hypertension (I10) Active confirmed Ricky-162 1144- Problem Uncomplicated asthma (disorder) (242826976) Unspecified asthma, uncomplicated (J45.909) Active confirmed Ricky-162 1144- Problem Long-term current use of drug therapy (614828125) Other terminal operations manager (current) drug therapy (Z79.899) Active confirmed Ricky-162 1144- Problem 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) (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 Problem Pulmonary hypertension (68429798) Pulmonary hypertension, unspecified (I27.20) Active confirmed Ricky-162 1144- Problem Immunodeficiency disorder (disorder) (964301168) 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 confirmed Problem 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 Respiratory Rate 16 /min 11/23/2023 BP was take n on left arm, while sitting down, with both feet flat on the ground. Lulu Lyon 11/23/2023 09:14:49 AM EDT > Oximetry 93 % 02/28/2024 Blood pressure was taken on left arm, while sitting down, with both feet flat on the ground. Lulu Lyon 02/28/2024 09:32:49 AM EST > Blood pressure diastolic 72 mm Hg 02/28/2024 Blo od pressure was taken on left arm, while sitting down, with both feet flat on the ground. Lulu Lyon 02/28/2024 09:32:49 AM EST > Height 60 in 02/28/2024 Blood pressure was taken on left arm, while sitting down, with both feet flat on the ground. Lulu Lyon 02/28/2024 09:32:49 AM EST > Blood pressure systolic 138 mm Hg 02/28/2024 Bloo d pressure was taken on left arm, while sitting down, with both feet flat on the ground. Lulu Lyon 02/28/2024 09:32:49 AM EST > Weight 150 lbs 07/13/2023 BP was taken on left arm, while sitting down, with both feet flat on the ground. BMI 29.29 kg/m2 07/13/2023 BP was taken on left arm, while sitting down, with both feet flat on the ground. Encounters Encounter Location Date Provider Diagnosis [facility] at [address] [id number] 01/09/2024 Paulo Ng Chronic obstructive pulmonary disease, unspecified J44.9 ; Essential (primary) hypertension I10 ; Rheumatoid arthritis, unspecified M06.9 ; Immunodeficiency due to conditions classified elsewhere D84.81 ; Routine adult health maintenance Z00.00 and Rheumatoid arthritis, involving unspecified site, unspecified whether rheumatoid factor present M06.9 [facility] at [address] [place], [place] [id number] 05/19/2023 Serena Wilsonhison Essential (primary) hypertension I10 ; Chronic obstructive pulmonary disease, unspecified J44.9 ; Rheumatoid arthritis, unspecified M06.9 ; Deficiency of other specified B group vitamins E53.8 ; Vitamin D deficiency, unspecified E55.9 ; Immunodeficiency due to drugs D84.821 ; Immunodeficiency due to conditions classified elsewhere D84.81 and Drug-induced adrenocortical insufficiency E27.3 [facility] at [address] [id number] 06/24/2023 Serena Pyrites Essential (primary) hypertension I10 ; Chronic obstructive pulmonary disease, unspecified J44.9 ; Rheumatoid arthritis, unspecified M06.9 ; Drug-induced adrenocortical insufficiency E27.3 ; 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 ; Vitamin D deficiency, unspecified E55.9 ; Other fatigue R53.83 ; Deficiency of other specified B group vitamins E53.8 ; Other care home (current) drug therapy Z79.899 and Stage 3b chronic kidney disease (CKD) N18.32 [facility] at [address] [facility] [place], [place] [id number] 05/23/2023 Serena Pyrites [facility] at [address] [place] [id number] 06/20/2023 Serena Pyrites [facility] at [address] [facility] [place] [id number] 07/05/2023 Serena Pyrites [facility] at [address] [facility] [place] [id number] 07/07/2023 Serena Pyrites Multifocal pneumonia J18.9 ; 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 ; Chronic obstructive pulmonary disease, unspecified J44.9 and Essential (primary) hypertension I10 [facility] at [address] [place], [place] [id number] 07/13/2023 Serena Pyrites Chronic obstructive pulmonary disease, unspecified J44.9 ; Multifocal pneumonia J18.9 ; Essential (primary) hypertension I10 ; Rheumatoid arthritis, unspecified M06.9 and Immunodeficiency due to conditions classified elsewhere D84.81 [facility] at [address] [place] [place], [place] [id number] 07/12/2023 Serena Pyrites [facility] at [address] [place] [address] [place], [place] [id number] 08/17/2023 Serena Pyrites Essential (primary) hypertension I10 ; Chronic obstructive pulmonary disease, unspecified J44.9 ; Rheumatoid arthritis, unspecified M06.9 ; Immunodeficiency due to conditions classified elsewhere D84.81 and Multifocal pneumonia J18.9 [facility] at [address] [place] [place], [place] [id number] 08/18/2023 Serena Hackett Essential (primary) hypertension I10 [facility] at [address] [place] [address] [place], [place] [id number] 09/14/2023 Serena Hackett Chronic obstructive pulmonary disease, unspecified J44.9 ; Essential (primary) hypertension I10 ; Rheumatoid arthritis, unspecified M06.9 and Immunodeficiency due to conditions classified elsewhere D84.81 [facility] at [address] [place] [id number] 11/23/2023 Paulo Ng Chronic obstructive pulmonary disease, unspecified J44.9 ; Essential (primary) hypertension I10 ; Rheumatoid arthritis, unspecified M06.9 ; Immunodeficiency due to conditions classified elsewhere D84.81 and Routine adult health maintenance Z00.00 [facility] at [address] [place], [place] [id number] 08/22/2023 Alan Villanueva Vitamin D deficiency , unspecified E55.9 [facility] at [address] [place] [id number] 09/07/2023 Serena Hackett [facility] at [address] [place], [place] [id number] 10/14/2023 Paulo Ng Chronic obstructive pulmonary disease, unspecified J44.9 ; Rheumatoid arthritis, unspecified M06.9 ; Essential (primary) hypertension I10 ; Immunodeficiency due to conditions classified elsewhere D84.81 and Routine adult health maintenance Z00.00 [facility] [address] [place] [id number] 09/22/2023 Serena Hackett [facility] at [address] [place], [place] [id number] 10/19/2023 Paulo Ng [facility] at [address] [place], [place] [id number] 10/25/2023 Paulo Ng Rheumatoid arthritis , involving unspecified site, unspecified whether rheumatoid factor present M06.9 [facility] at [address] [place] [address] [place], [place] [id number] 12/12/2023 Pauloana Ng [facility] at [address] [facility] [address] [place], [place] [id number] 12/13/2023 Paulo Ng [facility] at [address] [place], [place] [id number] 12/27/2023 Paulo Ng [facility] at [address] [place] [address] [place], [place] [id number] 01/02/2024 Paulo Ng Vitamin D deficiency , unspecified E55.9 [facility] at [address] [place] [address] [place], [place] [id number] 01/24/2024 Paulo Ng Chronic obstructive pulmonary disease, unspecified J44.9 ; Essential (primary) hypertension I10 ; Rheumatoid arthritis, unspecified M06.9 ; Immunodeficiency due to conditions classified elsewhere D84.81 ; Routine adult health maintenance Z00.00 and Rheumatoid arthritis, involving unspecified site, unspecified whether rheumatoid factor present M06.9 [facility] [address] [place], [place] [id number] 02/28/2024 Paulo Ng Chronic obstructive pulmonary disease, unspecified J44.9 ; Essential (primary) hypertension I10 ; Rheumatoid arthritis, unspecified M06.9 ; Immunodeficiency due to conditions classified elsewhere D84.81 ; Routine adult health maintenance Z00.00 and Rheumatoid arthritis, involving unspecified site, unspecified whether rheumatoid factor present M06.9 [facility] [address] [place], [place] [id number] 04/05/2024 Paulo Ng Chronic obstructive pulmonary disease, unspecified J44.9 ; Essential (primary) hypertension I10 ; Rheumatoid arthritis, unspecified M06.9 ; Immunodeficiency due to conditions classified elsewhere D84.81 ; Routine adult health maintenance Z00.00 ; Rheumatoid arthritis, involving unspecified site, unspecified whether rheumatoid factor present M06.9 and Other terminal operations manager (current) drug therapy Z79.899 [facility] [address] [place] [address] [place], [place] [id number] 03/05/2024 Paulo Ng [facility] at [address] [place] [address] [place], [place] [id number] 03/15/2024 Paulo Ng Rheumatoid arthritis , involving unspecified site, unspecified whether rheumatoid factor present M06.9 [facility] at [address] [place] [address] [place], [place] [id number] 03/19/2024 Paulo Ng Chronic obstructive pulmonary disease, unspecified J44.9 Assessments Encounter Date Diagnosis (ICD Code) Assessment Notes Treatment Notes Treatment Clinical Notes 05/19/2023 Essential (primary) hypertension (ICD-10 - I10) [facility] [id number] Continue medications and home monitoring as directed. Continue low sodium diet with goal of <2g per day. Avoid stress. Avoid adding salt to food. Enjoy regular exercise like walking at least 30 minutes a day, five days a week. Refilled metoprolol. Patient wanted to discuss coming off of her current medications, recommended staying on current medications at this time due to her chronic conditions. 06/24/2023 Essential (primary) hypertension (ICD-10 - I10) [id number]- Continue medications and home monitoring as directed. Continue low sodium diet with goal of <2g per day. Avoid stress. Avoid adding salt to food. Enjoy regular exercise like walking at least 30 minutes a day, five days a week. Ordered labs for continued monitoring. 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 07/07/2023 Multifocal pneumonia (ICD-10 - J18.9) Hospitalized for pneumonia. Improving on Levaquin, nebulizer treatments, and incentive spirometry. Refilled cough medicine. Follow up with pulm tomorrow. 07/13/2023 Chronic obstructive pulmonary disease, unspecified (ICD-10 - J44.9) [facility] [id number] Continue to follow with Mold Finisher. Restarted trelegy per pulm instruction. 08/17/2023 Chronic obstructive pulmonary disease, unspecified (ICD-10 - J44.9) [facility] [id number]- Continue to follow with Mold Finisher. 08/18/2023 Essential (primary) hypertension (ICD-10 - I10) [id number]- 08/22/2023 Vitamin D deficiency , unspecified (ICD-10 - E55.9) 09/14/2023 Chronic obstructive pulmonary disease, unspecified (ICD-10 - J44.9) [id number]- Continue to follow with Mold Finisher. 10/14/2023 Chronic obstructive pulmonary disease, unspecified (ICD-10 - J44.9) [id number]- Continue to follow with Mold Finisher. 10/25/2023 Rheumatoid arthritis , involving unspecified site, unspecified whether rheumatoid factor present (ICD-10 - M06.9) 11/23/2023 Chronic obstructive pulmonary disease, unspecified (ICD-10 - J44.9) [facility] [id number]- Continue to follow with Mold Finisher. 01/02/2024 Vitamin D deficiency , unspecified (ICD-10 - E55.9) 01/09/2024 Chronic obstructive pulmonary disease, unspecified (ICD-10 - J44.9) [id number]- Continue to follow with Mold Finisher. 01/24/2024 Chronic obstructive pulmonary disease, unspecified (ICD-10 - J44.9) [id number]- Continue to follow with Mold Finisher. 03/15/2024 Rheumatoid arthritis , involving unspecified site, unspecified whether rheumatoid factor present (ICD-10 - M06.9) 03/19/2024 Chronic obstructive pulmonary disease, unspecified (ICD-10 - J44.9) [id number]- 04/05/2024 Chronic obstructive pulmonary disease, unspecified (ICD-10 - J44.9) [id number]- Continue to follow with Mold Finisher. 02/27 weaning down on predisone right now doing 02/28/2024 Chronic obstructive pulmonary disease, unspecified (ICD-10 - J44.9) [id number]- Continue to follow with Mold Finisher. 02/27 weaning down on predisone right now doing 02/28/2024 Essential (primary) hypertension (ICD-10 - I10) [id number]- Continue medications and home monitoring as directed. Continue low sodium diet with goal of <2g per day. Avoid stress. Avoid adding salt to food. Enjoy regular exercise like walking at least 30 minutes a day, five days a week. 08/17/2023 Essential (primary) hypertension (ICD-10 - I10) [id number]- Continue medications and home monitoring as directed. Continue low sodium diet with goal of <2g per day. Avoid stress. Avoid adding salt to food. Enjoy regular exercise like walking at least 30 minutes a day, five days a week. 08/17/2023 Rheumatoid arthritis , unspecified (ICD-10 - M06.9) [place] can stop the hydroxychloroquine. She is doing really well on the methotrexate. 02/28/2024 Rheumatoid arthritis , unspecified (ICD-10 - M06.9) Rheum discontinued methotrexate due to increasing Cr. Seeing rheum in 2 days to discuss other treatment options. 04/05/2024 Essential (primary) hypertension (ICD-10 - I10) [id number]- Continue medications and home monitoring as directed. Continue low sodium diet with goal of <2g per day. Avoid stress. Avoid adding salt to food. Enjoy regular exercise like walking at least 30 minutes a day, five days a week. 01/24/2024 Essential (primary) hypertension (ICD-10 - I10) [id number]- Continue medications and home monitoring as directed. Continue low sodium diet with goal of <2g per day. Avoid stress. Avoid adding salt to food. Enjoy regular exercise like walking at least 30 minutes a day, five days a week. 01/09/2024 Essential (primary) hypertension (ICD-10 - I10) [id number]- Continue medications and home monitoring as directed. Continue low sodium diet with goal of <2g per day. Avoid stress. Avoid adding salt to food. Enjoy regular exercise like walking at least 30 minutes a day, five days a week. 11/23/2023 Essential (primary) hypertension (ICD-10 - I10) [id number]- Continue medications and home monitoring as directed. Continue low sodium diet with goal of <2g per day. Avoid stress. Avoid adding salt to food. Enjoy regular exercise like walking at least 30 minutes a day, five days a week. 10/14/2023 Essential (primary) hypertension (ICD-10 - I10) [id number]- Continue medications and home monitoring as directed. Continue low sodium diet with goal of <2g per day. Avoid stress. Avoid adding salt to food. Enjoy regular exercise like walking at least 30 minutes a day, five days a week. 10/14/2023 Rheumatoid arthritis , unspecified (ICD-10 - M06.9) Rheum discontinued methotrexate due to increasing Cr. Seeing rheum in 2 days to discuss other treatment options. 09/14/2023 Essential (primary) hypertension (ICD-10 - I10) [id number]- Continue medications and home monitoring as directed. Continue low sodium diet with goal of <2g per day. Avoid stress. Avoid adding salt to food. Enjoy regular exercise like walking at least 30 minutes a day, five days a week. 07/07/2023 Chronic obstructive pulmonary disease, unspecified (ICD-10 - J44.9) [id number]- Continue to follow with [facility]. Restart trelegy per pulm instruction. 07/13/2023 Essential (primary) hypertension (ICD-10 - I10) [id number]- Restarted olmesartan, BP better controlled now. Home BP numbers back to normal after restarting medication. 07/13/2023 Multifocal pneumonia (ICD-10 - J18.9) Mostly resolved. Having follow up CXR with pulm just before she leaves to go back purchase. States that she feels significantly better. 06/24/2023 Chronic obstructive pulmonary disease, unspecified (ICD-10 - J44.9) [id number]- To help your lungs, avoid lung irritants (smoking and 2nd hand smoke, chemical fumes, dust, etc.). Work on taking deep breaths to keep your lungs inflated. Continue treatment as directed. Continue to follow with [facility]. 05/19/2023 Chronic obstructive pulmonary disease, unspecified (ICD-10 - J44.9) [id number]- To help your lungs, avoid lung irritants (smoking and 2nd hand smoke, chemical fumes, dust, etc.). Work on taking deep breaths to keep your lungs inflated. Continue treatment as directed. Continue to follow with [facility]. 06/24/2023 Rheumatoid arthritis , unspecified (ICD-10 - M06.9) [id number]- Continue to follow with early intervention specialist. Not having any pain taking the methotrexate and hydroxychloroquin. 07/07/2023 Essential (primary) hypertension (ICD-10 - I10) [id number]- Monitor BP at home. If SBP consistantly above 140 or DBP above 90, restart olmesartan. Follow up in 7-10 days. 07/13/2023 Rheumatoid arthritis , unspecified (ICD-10 - M06.9) Starting back on methotrexate tomorrow, only skipped one dose due to pneumonia. 09/14/2023 Rheumatoid arthritis , unspecified (ICD-10 - M06.9) Rheum discontinued methotrexate due to increasing Cr. Seeing rheum in 2 days to discuss other treatment options. 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 11/23/2023 Rheumatoid arthritis , unspecified (ICD-10 - M06.9) Rheum discontinued methotrexate due to increasing Cr. Seeing rheum in 2 days to discuss other treatment options. 01/09/2024 Rheumatoid arthritis , unspecified (ICD-10 - M06.9) Rheum discontinued methotrexate due to increasing Cr. Seeing rheum in 2 days to discuss other treatment options. 01/24/2024 Rheumatoid arthritis , unspecified (ICD-10 - M06.9) Rheum discontinued methotrexate due to increasing Cr. Seeing rheum in 2 days to discuss other treatment options. 04/05/2024 Rheumatoid arthritis , unspecified (ICD-10 - M06.9) Rheum discontinued methotrexate due to increasing Cr. Seeing rheum in 2 days to discuss other treatment options. 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 05/19/2023 Rheumatoid arthritis , unspecified (ICD-10 - M06.9) [facility] [id number]- Stable on medications. Continue to follow with early intervention specialist. 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 06/24/2023 Vitamin D deficiency , unspecified (ICD-10 - E55.9) Start taking 5,000 IU daily for low vitamin D level. Will recheck level again in 6 months. 11/23/2023 Routine adult health maintenance (ICD-10 - Z00.00) 01/09/2024 Routine adult health maintenance (ICD-10 - Z00.00) 01/24/2024 Routine adult health maintenance (ICD-10 - Z00.00) 04/05/2024 Routine adult health maintenance (ICD-10 - Z00.00) 02/28/2024 Rheumatoid arthritis , involving unspecified site, unspecified whether rheumatoid factor present (ICD-10 - M06.9) 04/05/2024 Rheumatoid arthritis , involving unspecified site, unspecified whether rheumatoid factor present (ICD-10 - M06.9) 04/05/2024 Other care home (current) drug therapy (ICD-10 - Z79.899) 01/24/2024 Rheumatoid arthritis , involving unspecified site, unspecified whether rheumatoid factor present (ICD-10 - M06.9) 01/09/2024 Rheumatoid arthritis , involving unspecified site, unspecified whether rheumatoid factor present (ICD-10 - M06.9) 05/19/2023 Vitamin D deficiency , unspecified (ICD-10 - E55.9) [facility] [id number]- Continue taking 5,000 IU daily for low vitamin D level. 06/24/2023 Other fatigue (ICD-1 0 - R53.83) Ordered labs for continued monitoring. 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 Monitor blood pressure and Renal function. Follow a low sodium diet. Avoid all NSAIDs. 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) Due to Trelegy for COPD 09/14/2023 Other Plan Of Treatment Future Test Test Name Order Date Vitamin B12 12/21/2022 Urinalysis, Complete (UA) 12/21/2022 Complete Blood Count with Differential/P latelet (CBC) 12/21/2022 Vitamin D, 25-Hydroxy 12/21/2022 Lipid Panel With Total Cholesterol/HDL R atio 12/21/2022 TSH reflex to T4F 12/21/2022 Comprehensive Metabolic Panel 14 (CMP) 1 Complete Blood Count with Differential/P latelet (CBC) 04/25/2023 Next Appt Details Provider Name:Paulo Mujica Hernandez , 06/22/2024 02:40:00 PM, [address] [facility], [place], [place], [id number], Insurance Providers Payer Name Payer Address Payer Phone Subscriber Number Group Number Insured Name Patient Relationship to Insured Coverage Start Date Coverage End Date [id number] [employer] [place] P[place] [address] [address] [place], [place] [id number] Gilda Mari Self - patient is the insured Medications Administered Medication Instructions Date of Administration Dosage Notes Cyanocobalamin 03/18/2023 1 mL cyanocobalamin 04/25/2023 1 mL cyanocobalamin 06/24/2023 1 mL Medical (General) History Surgical History Surgery Date(Month/Year) Colonoscopy In 01/26/2012 Hospitalization History Reason Date(Month/Year) Multifocal pneumonia 2023 Cough, COPD and pneumonia 05/2022
[2024-05-01 17:45] LABS: MANUAL DIFF FLAG NO
[2024-05-01 17:58] LABS: Basophils Absolute Auto 0.1 X10*3/uL (0.0-0.2); Basophils Percent Auto 0.4 % (0-2); Eosinophils Absolute Auto 0.1 X10*3/uL (0.0-0.4); Eosinophils Percent Auto 0.4 % (0-4); Hematocrit 36.7 % (37.0-47.0); Hemoglobin 11.5 g/dl (12.0-16.0); Imm Gran Abs Auto 0.08 X10*3/uL (0.00-0.03); Imm Gran Pct Auto 0.6 % (0.0-0.4); Lymphocytes Absolute Auto 0.6 X10*3/uL (1.2-4.9); Lymphocytes Percent Auto 4.9 % (20-40); Mean Corpuscular HGB Conc 31.3 g/dl (31.0-35.0); Mean Corpuscular Hemoglobin 29.7 pg (27.0-33.0); Mean Corpuscular Volume 94.8 fL (80.0-98.0); Mean Platelet Volume 9.4 fL (9.4-12.3); Monocytes Absolute Auto 0.7 X10*3/uL (0.1-1.2); Monocytes Percent Auto 5.2 % (2-11); Neutrophils Absolute Auto 11.5 x10*3/uL (2.0-8.3); Neutrophils Percent Auto 88.5 % (45-73); Platelet Count 268 X10*3/uL (160-400); Red Blood Count 3.87 X10*6/uL (4.20-5.50); Red Cell Distribution Width 12.8 % (11.0-16.0)
[2024-05-01 18:12] LABS: Alanine Aminotransferase 24 U/L (0-31); Aspartate Amino Transferase 36 U/L (5-31); C Reactive Protein 0.39 mg/dL (< or = 0.50); Cholesterol 149 mg/dL (<200); Estimated Glomerular Filt Rate 46; HDL Cholesterol 62 mg/dL (>40); LDL Cholesterol Calculated 62 mg/dL (<100); Triglycerides 125 mg/dL (<150)
[2024-05-01 18:48] LABS: Erythrocyte Sedimentation Rate 17 MM/HR (0-20)
[2024-05-02 08:26] LABS: HBS Num1 0.22 mIU/mL (0-7.99); HBc Num1 0.15 S/CO (0.00-0.79); HBsAGNum1 0.25 S/CO (0.00-0.99); Hepatitis B Core Antibody Nonreactive (Nonreactive); Hepatitis B Surface Antigen Negative (Negative); ~Hepatitis B Surface Antibody NONREACTIVE (Nonreactive); ~Hepatitis C Antibody Nonreactive (Nonreactive)
[2024-05-04 07:03] LABS: TS Negative Control Passed; TS Panel A 0; TS Panel B 0; TS Positive Control Passed; TSpotTB Negative (Negative)
== END 2024-05-01 08:46 | disposition home or self-care (01) ==
LOC: HO.HKASLDS 08:45
PROVIDERS: PCP Internal Medicine; Visit Provider Internal Medicine Rheumatology
DX: M06.9 Rheumatoid arthritis, unspecified (principal); Z79.60 Long term (current) use of unspecified immunomodulators and immunosuppressants; Z79.899 Other long term (current) drug therapy
CPT/HCPCS: 36415; 80061; 82565; 84450; 84460; 85025; 85652; 86140; 86481; 86704; 86706; 86803; 87340

== ENCOUNTER 2024-05-17 16:03 | Outpatient (REF) | payer OTHER, SELFPAY ==
[2024-05-17 18:24] LABS: Alanine Aminotransferase 18 U/L (0-31); Albumin Level 3.4 g/dL (3.5-5.0); Aspartate Amino Transferase 25 U/L (5-31); Bilirubin Direct 0.1 mg/dL (0.0-0.5); Bilirubin Total 0.4 mg/dL (0.0-1.0); Total Protein 6.8 g/dL (6.5-8.0)
[2024-05-17 18:30] LABS: Alkaline Phosphatase 58 U/L (39-117)
--- OUTSIDE RECORDS SUMMARY | 2024-05-17 19:20 | XMS_ITS | Data Portability ---
Author Organization [facility] OFFICE Address [address] [place] [address] Care Team Providers Care Cut Out Operator Name Role Phone RAJIV RED Primary Care Provider [phone] Assessment No assessment recorded. Plan of Treatment Reminders Order Date Submit Date Provider Last Modified By Organization Details Last Modified Time Details Appointments None recorded . Lab hemoglob in A1C, fingerst ick 2022 023 JONNATHAN In-House Results, For Internal Use Only, Do Not Delete/merge, [id number] 3 12:20:33 CMP, serum or plasma 2021 022 [email or web address] [facility], [address] [facility], [address], [place], [address], 2 15:02:05 CBC w/ auto diff 2021 022 [facility], [address] [facility], [address], [place], [address], 2 15:02:05 lipid panel, serum 2021 022 [facility] hospital[facility], [address] [facility], [address], [place], [address], 2 15:02:05 Referral pulmonol ogist referral 2022 023 debra Not available 13:09:23 Procedures None recorded . Surgeries None recorded . Imaging XR, knee, 3 view 2021 022 [email or web address] [facility], [address], [place], [address], 3 07:19:05 XR, knee, 3 view 2021 022 [email or web address] [facility], [address], [place], [address], 3 07:19:05 Medication Orders cyanocob alamin (vit B-12) 1,000 mcg/mL injectio n solution 2022 023 Not available 3 12:46:56 famotidi ne 20 mg tablet 2022 023 [facility] [address], [address] [place], [address], 3 14:02:57 cyanocob alamin (vit B-12) 1,000 mcg/mL injectio n solution 2022 023 [email or web address] Not available 3 16:51:19 cyanocob alamin (vit B-12) 1,000 mcg/mL injectio n solution 2022 023 Not available 15:02:14 Patient TargetsNo targets recorded. Patient Instructions Encounter Date Encounter Id Patient Instructions Last Modified By Organization Details Last Modified Time 03/02/2022 [id number] 30 min total veronica e of encounter including face to face and non face to face time spent: Preparing to see patient Obtaining and reviewing separately obtained history Performing medically appropriate examination or evaluation Counseling and educating patient/family/car egiver Ordering medications, tests, or procedures Referring and communication with other health rn intensive care unit Documenting clinical information in the medical record Independently interpreting and communicating results to patient/caregiver Care coordination Discussed treatment plan with patient. The patient verbalized understanding and agrees with plan and follow up. There are no other questions and concerns at this time. f/u scheduled vascular surgeon consult [id number] vascular surgery varicose veins conservative treatment [email or web address] Not available 03/02/2022 08:25:02 05/27/2022 [id number] 30 min total veronica e of encounter including face to face and non face to face time spent: Preparing to see patient Obtaining and reviewing separately obtained history Performing medically appropriate examination or evaluation Counseling and educating patient/family/car egiver Ordering medications, tests, or procedures Referring and communication with other health rn intensive care unit Documenting clinical information in the medical record Independently interpreting and communicating results to patient/caregiver Care coordination Discussed treatment plan with patient. The patient verbalized understanding and agrees with plan and follow up. There are no other questions and concerns at this time. f/u scheduled Discussed all CBC w/ auto diff [id number] 6.2 11.3 WBC 6.2 RBC 4.03 hemoglobin 11.3 hematocrit 33.8 below low normal MCV 84 MCH 28.0 MCHC 33.4 RDW 13.5 platelets 321 neutrophils 48 lymphs 39 monocytes 11 eos 1 basos 1 immature cells pharmacy technician inpatient neutrophils (absolute) 3.0 lymphs (absolute) 2.4 monocytes(absolute ) 0.7 eos (absolute) 0.1 baso (absolute) 0.0 immature granulocytes 0 immature grans (abs) 0.0 NRBC pharmacy technician inpatient hematology comments: pharmacy technician inpatient lipid panel, serum [id number] 139 49 68 127 cholesterol, total 139 triglycerides 127 HDL cholesterol 49 VLDL cholesterol cristina 22 LDL chol calc (nih) 68 comment: pharmacy technician inpatient CMP, serum or plasma [id number] 1.13 glucose 71 BUN 23 creatinine 1.13 above high normal eGFR 47 below low normal BUN/creatinine ratio 20 sodium 139 potassium 4.6 chloride 102 carbon dioxide, total 26 calcium 9.3 protein, total 6.3 albumin 3.7 globulin, total 2.6 A/G ratio 1.4 bilirubin, total 0.2 alkaline phosphatase 47 AST (SGOT) 18 ALT (SGPT) 23 CMP, serum or plasma [id number] lisandro ann CMP14 default comment lipid panel, serum [id number] lisandro ann LP default comment XR, knee, 3 [id number] IMPRESSION: 1.No acute osseous abnormality. 2.Moderate medial patellofemoral compartment osteoarthritis If there are persistent symptoms, consider additional imaging such as knee MRI to assess for internal derangement. 03/05/2022 Re-post to PACS Electronically Signed By: Wilfrid Robertson MD XR, knee, 3 [id number] XR, knee, 3 [id number] No acute osseous abnormality. Moderate medial patellofemoral compartment osteoarthritis. XR, knee, 3 view Not available 05/27/2022 15:00:17 06/10/2022 [id number] mini-cog assessment* [email or web address] Not available 06/25/2022 15:25:02 low calorie diet [...] procedures Referring and communication with other health rn intensive care unit Documenting clinical information in the medical record Independently interpreting and communicating results to patient/caregiver Care coordination Discussed treatment plan with patient. The patient verbalized understanding and agrees with plan and follow up. There are no other questions and concerns at this time. f/u scheduled [address] [facility] Dept [place], [place] [id number] Rosalva Aguila D.O. 9981 SMartina [facility] Camp[facility] Valencia, [address] [place] [address] [id number] COPD with acute exacerbation (HCC) (Primary Dx); Acute hypoxemic respiratory failure (HCC); Atypical pneumonia; Essential hypertension; Community acquired bacterial pneumonia; CHRISTIAN (acute kidney injury) (HCC); Pneumonia of both lungs due to infectious organism, unspecified part of lung Discussed all CBC w/ auto diff [id number] 6.2 11.3 WBC 6.2 RBC 4.03 hemoglobin 11.3 hematocrit 33.8 below low normal MCV 84 MCH 28.0 MCHC 33.4 RDW 13.5 platelets 321 neutrophils 48 lymphs 39 monocytes 11 eos 1 basos 1 immature cells pharmacy technician inpatient neutrophils (absolute) 3.0 lymphs (absolute) 2.4 monocytes(absolute ) 0.7 eos (absolute) 0.1 baso (absolute) 0.0 immature granulocytes 0 immature grans (abs) 0.0 NRBC pharmacy technician inpatient hematology comments: pharmacy technician inpatient lipid panel, serum [id number] 139 49 68 127 cholesterol, total 139 triglycerides 127 HDL cholesterol 49 VLDL cholesterol cristina 22 LDL chol calc (nih) 68 comment: pharmacy technician inpatient CMP, serum or plasma [id number] 71 1.13 glucose 71 BUN 23 creatinine 1.13 above high normal eGFR 47 below low normal BUN/creatinine ratio 20 sodium 139 potassium 4.6 chloride 102 carbon dioxide, total 26 calcium 9.3 protein, total 6.3 albumin 3.7 globulin, total 2.6 A/G ratio 1.4 bilirubin, total 0.2 alkaline phosphatase 47 AST (SGOT) 18 ALT (SGPT) 23 CMP, serum or plasma [id number] ambig abbrev CMP14 default comment lipid panel, serum [id number] ambig abbrev LP default comment XR, knee, 3 [id number] IMPRESSION: 1.No acute osseous abnormality. 2.Moderate medial patellofemoral compartment osteoarthritis If there are persistent symptoms, consider additional imaging such as knee MRI to assess for internal derangement. 03/05/2022 Re-post to PACS Electronically Signed By: Wilfrid Robertson MD XR, knee, 3 [id number] XR, knee, 3 [id number] No acute osseous abnormality. Moderate medial patellofemoral compartment osteoarthritis. XR, knee, 3 view Not available 06/10/2022 13:53:59 06/25/2022 [id number] 30 min total veronica e of encounter including face to face and non face to face time spent: Preparing to see patient Obtaining and reviewing separately obtained history Performing medically appropriate examination or evaluation Counseling and educating patient/family/car egiver Ordering medications, tests, or procedures Referring and communication with other health rn intensive care unit Documenting clinical information in the medical record Independently interpreting and communicating results to patient/caregiver Care coordination Discussed treatment plan with patient. The patient verbalized understanding and agrees with plan and follow up. There are no other questions and concerns at this time. f/u scheduled [address] [facility] [place] [address] Rosalva Aguila D.O. [address] Dem[facility] [facility], [address] [place] [id number] COPD with acute exacerbation (HCC) (Primary Dx); Acute hypoxemic respiratory failure (HCC); Atypical pneumonia; Essential hypertension; Community acquired bacterial pneumonia; CHRISTIAN (acute kidney injury) (HCC); Pneumonia of both lungs due to infectious organism, unspecified part of lung Discussed all CBC w/ auto diff [id number] 6.2 11.3 WBC 6.2 RBC 4.03 hemoglobin 11.3 hematocrit 33.8 below low normal MCV 84 MCH 28.0 MCHC 33.4 RDW 13.5 platelets 321 neutrophils 48 lymphs 39 monocytes 11 eos 1 basos 1 immature cells pharmacy technician inpatient neutrophils (absolute) 3.0 lymphs (absolute) 2.4 monocytes(absolute ) 0.7 eos (absolute) 0.1 baso (absolute) 0.0 immature granulocytes 0 immature grans (abs) 0.0 NRBC pharmacy technician inpatient hematology comments: pharmacy technician inpatient lipid panel, serum [id number] 139 49 68 127 cholesterol, total 139 triglycerides 127 HDL cholesterol 49 VLDL cholesterol cristina 22 LDL chol calc (nih) 68 comment: pharmacy technician inpatient CMP, serum or plasma [id number] 1.13 glucose 71 BUN 23 creatinine 1.13 above high normal eGFR 47 below low normal BUN/creatinine ratio 20 sodium 139 potassium 4.6 chloride 102 carbon dioxide, total 26 calcium 9.3 protein, total 6.3 albumin 3.7 globulin, total 2.6 A/G ratio 1.4 bilirubin, total 0.2 alkaline phosphatase 47 AST (SGOT) 18 ALT (SGPT) 23 CMP, serum or plasma [id number] lisandro ann CMP14 default comment lipid panel, serum [id number] ambbrand[address] abbreluigi LP default comment XR, knee, 3 [id number] IMPRESSION: 1.No acute osseous abnormality. 2.Moderate medial patellofemoral compartment osteoarthritis If there are persistent symptoms, consider additional imaging such as knee MRI to assess for internal derangement. 03/05/2022 Re-post to PACS Electronically Signed By: Wilfrid Rboertson MD XR, knee, 3 [id number] XR, knee, 3 [id number] No acute osseous abnormality. Moderate medial patellofemoral compartment osteoarthritis. 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 Referral for M ultiple nodules of lung Referring Physician: Rajiv Red, Internal Medicine, Encounter Date: 05/27/2022 Results Created Date Observation Date Name Description Value Unit Range Abnormal Flag Note LastModifiedBy Organization Detail LastModifiedTime 05/21/1905/21/2022 CBC/D IFF AMBIG UOUS DEFAU LT WBC 6.2 x10e3 /uL 3.4-10 .8 Not Available [facility] ([facility]) [address] [place], [address], 05/21/2022 08:12:29 05/21/19 23 05/21/2022 CBC/D IFF AMBIG UOUS DEFAU LT RBC 4.03 x10e6 /uL 3.77-5 .28 Not Available [facility] ([facility]) [address] [place], [address], 05/21/2022 08:12:29 05/21/19 23 05/21/2022 CBC/D IFF AMBIG UOUS DEFAU LT hemoglobin 11.3 g/dL 11.1-1 5.9 Not Available [facility] ([facility]) [address] [place], [address], 05/21/2022 08:12:29 05/21/19 23 05/21/2022 CBC/D IFF AMBIG UOUS DEFAU LT hematocrit 33.8 % 34.0-4 6.6 below low normal Not Available [facility] ([facility]) [address] [place], [address], 05/21/2022 08:12:29 05/21/19 23 05/21/2022 CBC/D IFF AMBIG UOUS DEFAU LT MCV 84 fL 79-97 Not Available [facility] ([facility]) [address] [place], [address], 05/21/2022 08:12:29 05/21/19 23 05/21/2022 CBC/D IFF AMBIG UOUS DEFAU LT MCH 28.0 pg 26.6-3 3.0 Not Available [facility] ([facility]) [address] [facility], [place], [address], 05/21/2022 08:12:29 05/21/19 23 05/21/2022 CBC/D IFF AMBIG UOUS DEFAU LT MCHC 33.4 g/dL 31.5-3 5.7 Not Available [facility] ([facility]) [address] [facility], [place], [address], 05/21/2022 08:12:29 05/21/19 23 05/21/2022 CBC/D IFF AMBIG UOUS DEFAU LT RDW 13.5 % 11.7-1 5.4 Not Available [facility] ([facility]) [address] [facility], [place], [address], 05/21/2022 08:12:29 05/21/19 23 05/21/2022 CBC/D IFF AMBIG UOUS DEFAU LT platelets 321 x10e3 /uL 150-45 0 Not Available [facility] ([facility]) [address] [facility], [place], [address], 05/21/2022 08:12:29 05/21/19 23 05/21/2022 CBC/D IFF AMBIG UOUS DEFAU LT neutrophils 48 % not estab. Not Available [facility] ([facility]) [address] [facility], [place], [address], 05/21/2022 08:12:29 05/21/19 23 05/21/2022 CBC/D IFF AMBIG UOUS DEFAU LT lymphs 39 % not estab. Not Available [facility] ([facility]) [address] [facility], [place], [address], 05/21/2022 08:12:29 05/21/19 23 05/21/2022 CBC/D IFF AMBIG UOUS DEFAU LT monocytes 11 % not estab. Not Available [facility] ([facility]) [address] [facility], [place], [address], 05/21/2022 08:12:29 05/21/19 23 05/21/2022 CBC/D IFF AMBIG UOUS DEFAU LT eos 1 % not estab. Not Available [facility] ([facility]) [address] [facility], [place], [address], 05/21/2022 08:12:29 05/21/19 23 05/21/2022 CBC/D IFF AMBIG UOUS DEFAU LT basos 1 % not estab. Not Available [facility] ([facility]) [address] [facility], [place], [address], 05/21/2022 08:12:29 05/21/19 23 05/21/2022 CBC/D IFF AMBIG UOUS DEFAU LT immature cells HEEL SEAT TRIMMER Not Available [facility] ([facility]) [address] [place], [address], 05/21/2022 08:12:29 05/21/19 23 05/21/2022 CBC/D IFF AMBIG UOUS DEFAU LT neutrophils (absolute) 3.0 x10e3 /uL 1.4-7. 0 Not Available [facility] ([facility]) [address] [place], [address], 05/21/2022 08:12:29 05/21/19 23 05/21/2022 CBC/D IFF AMBIG UOUS DEFAU LT lymphs (absolute) 2.4 x10e3 /uL 0.7-3. 1 Not Available [facility] ([facility]) [address] [place], [address], 05/21/2022 08:12:29 05/21/19 23 05/21/2022 CBC/D IFF AMBIG UOUS DEFAU LT monocytes(ab solute) 0.7 x10e3 /uL 0.1-0. 9 Not Available [facility] ([facility]) [address] [facility], [place], [address], 05/21/2022 08:12:29 05/21/19 23 05/21/2022 CBC/D IFF AMBIG UOUS DEFAU LT eos (absolute) 0.1 x10e3 /uL 0.0-0. 4 Not Available [facility] ([facility]) [address] [facility], [place], [address], 05/21/2022 08:12:29 05/21/1905/21/2022 CBC/D IFF AMBIG UOUS DEFAU LT baso (absolute) 0.0 x10e3 /uL 0.0-0. 2 Not Available [facility] ([facility]) [address] [facility], [place], [address], 05/21/2022 08:12:29 05/21/1905/21/2022 CBC/D IFF AMBIG UOUS DEFAU LT immature granulocytes 0 % not estab. Not Available [facility] ([facility]) [address] [facility], [place], [address], 05/21/2022 08:12:29 05/21/19 23 05/21/2022 CBC/D IFF AMBIG UOUS DEFAU LT immature grans (abs) 0.0 x10e3 /uL 0.0-0. 1 Not Available [facility] ([facility]) [address] [facility], [place], [address], 05/21/2022 08:12:29 05/21/1905/21/2022 CBC/D IFF AMBIG UOUS DEFAU LT NRBC HEEL SEAT TRIMMER Not Available [facility] ([facility]) [address] [facility], [place], [address], 05/21/2022 08:12:29 05/21/19 23 05/21/2022 CBC/D IFF LISANDRO MENDEZ DEFAU LT hematology comments: HEEL SEAT TRIMMER A hand- writt en panel /prof mckenzie [...] ciate your busin ess. Not Available [facility] ([facility]) [address] [place], [address], 05/21/2022 08:12:29 05/21/19 23 05/21/2022 COMP. METAB OLIC PANEL (14) glucose 71 mg/dL 70-99 Not Available [facility] ([facility]) [address] [place], [address], 05/21/2022 08:12:29 05/21/19 23 05/21/2022 COMP. METAB OLIC PANEL (14) BUN 23 mg/dL 8-27 Not Available [facility] ([facility]) [address] [place], [address], 05/21/2022 08:12:29 05/21/19 23 05/21/2022 COMP. METAB OLIC PANEL (14) creatinine 1.13 mg/dL 0.57-1 .00 above high normal Not Available [facility] ([facility]) [address] [place], [address], 05/21/2022 08:12:29 05/21/19 23 05/21/2022 COMP. METAB OLIC PANEL (14) eGFR 47 mL/mi n/1.7 3 >59 below low normal Not Available [facility] ([facility]) [address] [facility], [place], [address], 05/21/2022 08:12:29 05/21/1905/21/2022 COMP. METAB OLIC PANEL (14) BUN/creatini ne ratio 02 03- Not Available [facility] ([facility]) [address] [facility], [place], [address], 05/21/2022 08:12:29 05/21/19 23 05/21/2022 COMP. METAB OLIC PANEL (14) sodium 139 mmol/ L 134-14 4 Not Available [facility] ([facility]) [address] [place], [address], 05/21/2022 08:12:29 05/21/19 23 05/21/2022 COMP. METAB OLIC PANEL (14) potassium 4.6 mmol/ L 3.5-5. 2 Not Available [facility] ([facility]) [address] [facility], [place], [address], 05/21/2022 08:12:29 05/21/19 23 05/21/2022 COMP. METAB OLIC PANEL (14) chloride 102 mmol/ L 96-106 Not Available [facility] ([facility]) [address] [facility], [place], [address], 05/21/2022 08:12:29 05/21/19 23 05/21/2022 COMP. METAB OLIC PANEL (14) carbon dioxide, total 26 mmol/ L - Not Available [facility] ([facility]) [address] [facility], [place], [address], 05/21/2022 08:12:29 05/21/19 23 05/21/2022 COMP. METAB OLIC PANEL (14) calcium 9.3 mg/dL 8.7-10 .3 Not Available [facility] ([facility]) [address] [facility], [place], [address], 05/21/2022 08:12:29 05/21/19 23 05/21/2022 COMP. METAB OLIC PANEL (14) protein, total 6.3 g/dL 6.0-8. 5 Not Available [facility] ([facility]) [address] [place], [address], 05/21/2022 08:12:29 05/21/19 23 05/21/2022 COMP. METAB OLIC PANEL (14) albumin 3.7 g/dL 3.6-4. 6 Not Available [facility] ([facility]) [address] [place], [address], 05/21/2022 08:12:29 05/21/19 23 05/21/2022 COMP. METAB OLIC PANEL (14) globulin, total 2.6 g/dL 1.5-4. 5 Not Available [facility] ([facility]) [address] [place], [address], 05/21/2022 08:12:29 05/21/19 23 05/21/2022 COMP. METAB OLIC PANEL (14) A/G ratio 1.4 1.2-2. 2 Not Available [facility] ([facility]) [address] [place], [address], 05/21/2022 08:12:29 05/21/19 23 05/21/2022 COMP. METAB OLIC PANEL (14) bilirubin, total 0.2 mg/dL 0.0-1. 2 Not Available [facility] ([facility]) [address] [place], [address], 05/21/2022 08:12:29 05/21/19 23 05/21/2022 COMP. METAB OLIC PANEL (14) alkaline phosphatase 47 IU/L 44-121 Not Available [facility] ([facility]) [address] [facility], [place], [address], 05/21/2022 08:12:29 05/21/19 23 05/21/2022 COMP. METAB OLIC PANEL (14) AST (SGOT) 18 IU/L 0-40 Not Available [facility] ([facility]) [address] [place], [address], 05/21/2022 08:12:29 05/21/19 23 05/21/2022 COMP. METAB OLIC PANEL (14) ALT (SGPT) 23 IU/L 0-32 Not Available [facility] ([facility]) [address] [place], [address], 05/21/2022 08:12:29 05/21/19 23 05/21/2022 LIPID PANEL cholesterol, total 139 mg/dL 100-19 9 Not Available [facility] ([facility]) [address] [place], [address], 05/21/2022 08:12:30 05/21/19 23 05/21/2022 LIPID PANEL triglyceride s 127 mg/dL 0-149 Not Available [facility] ([facility]) [address] [place], [address], 05/21/2022 08:12:30 05/21/19 23 05/21/2022 LIPID PANEL HDL cholesterol 49 mg/dL >39 Not Available [facility] ([facility]) [address] [place], [address], 05/21/2022 08:12:30 05/21/19 23 05/21/2022 LIPID PANEL VLDL cholesterol cristina 22 mg/dL 5-40 Not Available [facility] ([facility]) [address] [place], [address], 05/21/2022 08:12:30 05/21/19 23 05/21/2022 LIPID PANEL LDL chol calc (nih) 68 mg/dL 0-99 Not Available [facility] ([facility]) [address] [place], [address], 05/21/2022 08:12:30 05/21/19 23 05/21/2022 LIPID PANEL comment: HEEL SEAT TRIMMER Not Available [facility] ([facility]) [address] [facility], [place], [address], 05/21/2022 08:12:30 05/21/19 23 05/20/2022 AMBIG ABBRE [...] ciate your elderin ess. Not Available [facility] ([facility]) [address] [facility], [place], [address], 05/21/2022 08:12:31 05/21/19 23 05/20/2022 AMBIG ABBRE [...] ciate your busin ess. Not Available [facility] ([facility]) [address] [facility], [place], [address], 05/21/2022 08:12:31 06/12/1906/11/2022 hemog lobin A1C, shawn mesatic k A1C 5.3 Not Available In-House Results For Internal Use Only, Do Not Delete/merge, [id number] 06/10/2022 08:34:00 04/05/19 23 03/04/2022 XR, knee, [...] such as knee MRI to assess for help desk intern al georgette duncan. 2021 Re-pos t to PACS Electr onical ly Signed By: Wilfrid Robertson MD [facility] [id number] [place] [address] Christina, [place], [address], 05/27/2022 14:51:08 04/05/19 23 03/04/2022 XR, knee, [...] such as knee MRI to assess for help desk intern al georgette hicksenio. 2021 Re-pos t to PACS Electr onical ly Signed By: Wilfrid Robertson MD [place] [id number] [facility] - [address], [place], [address], 05/27/2022 14:51:08 04/05/19 23 03/04/2022 XR, knee, 3 view No observ ation record ed. [place] [id number] [facility] - [address], [place], [address], 05/27/2022 14:51:08 04/05/19 23 03/04/2022 XR, knee, 3 view No observ ation record ed. [address] [facility] [address], [place], [address], 05/27/2022 14:51:08 Result Notes None recorded. Problems Name Problem SNOMED Code Status Onset Date Resolution Date Notes Provider Name and Address Organization Details Recorded Time Long-ter m drug therapy Completed 201604/09/2021 LIAM CARBALLO [address], [place], [address], [facility], [facility] 2 17:00:00 Body mass index 25-29 - overweig [id number] Completed 201607/07/2017 LIAM CARBALLO [address], [place], [address], [facility] [place], [facility] 2 16:59:26 Elevated blood-pr essure reading without diagnosi s of hyperten sarai [id number] Completed 201602/26/2018 Removal Reason: has HTN JCARLOS quintanilla, [facility], [facility] 8 08:35:57 [facility] hyperten sarai [id number] Active 2016 DONNA CROSS [facility], [facility], [facility] 9 15:35:52 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 conserva tive tx d'vida DONNA CROSS [facility], [facility] 9 15:35:52 Cough 86234126 Completed 201705/19/2018 Removal Reason: resolved [facility] 9 10:11:11 Hip pain 13992674 Completed 04/09/2021 LIAM CARBALLO [address] [facility] [address], [place], [address], [facility] 2 17:00:11 Cough 69159533 Completed 03/26/2016 JCARLOS Meraz [facility], [facility] 9 10:11:11 Acute bronchit is 97108232 Completed 01/22/2016 RICHARD BONNY [facility], [facility] 6 15:09:56 Asthma 357783509 Active DONNABARBARA CROSS [facility] 9 15:35:52 Disorder of bone and articula r cartilag e 598853455 Completed 01/06/2020 Removal Reason: dup dx JCARLOS quintanilla, [facility] 0 08:33:44 Orthosta tic hypotens ion 73476972 Completed 201701/06/2020 Removal Reason: resolved JCARLOS SOLIS [facility] 0 08:34:53 Dizzines s 411685796 Completed 201701/06/2020 s/p stiolto? ? Removal Reason: resolved [facility] 0 08:33:24 Vitamin D deficien cy 18576819 Active 29.0 01/30/18 [facility] 9 15:35:52 Body mass index 30+ - obesity 152417691 Active 2017 DONNA CROSS [facility] 9 15:35:52 Vertigo 444120611 Active 2017 DONNA CROSS [facility] 9 15:35:52 Syncope 591426954 Active 2017 Stress test 01/26/18 neg -- ECHO 01/23/18 EF 60% w/ trace valvular issues DONNABARBARA CROSS [facility] 9 15:35:52 Pulmonar y hyperten sarai 60138105 Active 2017 mild echo 01/23/18 w/ trace TR and history of COPD DONNABARBARA CROSS [facility] 9 15:35:52 Supraven tricular tachycar jad 6027366 Active 2018 DONNABARBARA CROSS [facility] 9 15:35:52 Leukopen ia 72671815 Completed 201801/06/2020 new onset 06/26/18 at 4.1 Removal Reason: resolved [facility] 0 08:33:34 Serum creatini ne above referenc e range 797091120 Completed 201801/06/2020 New onset serum creatini ne raised. CMP 03/05/19 with creatini ne 1.09 and GFR 47. Avoid nephroto xins. Push fluids. Repeat CMP. Removal Reason: ckd 3 [facility] 0 08:34:46 Chronic kidney disease stage 3 192206971 Active 2019 [facility] 0 07:25:19 Cyst of kidney 412681923 Active 2019 Recent new onset. Patient had [...] comparis on. We will follow along. [facility], [facility] 0 08:23:45 Steatosi s of liver 284294101 Active 2020 [facility] 1 11:06:45 Computed tomograp hy result abnormal 430370760 Completed 202004/09/2021 LIAM CARBALLO [address] [place] [address] [address], [place], [address], [facility] 2 16:59:35 Body mass index 25-29 - overweig ht 964867299 Completed 202004/09/2021 LIAM CARBALLO [address] [place] [address] [address], [place], [address], [facility] 2 16:59:26 COVID-19 101401323 Active 2020 [facility], [facility] 1 11:04:15 Dyspnea 670289056 Active DONNA TAY [facility], [facility] 9 15:35:51 Serum vitamin B12 below referenc e range 047578463 Active 2022 Hammad Pham [facility], [facility] 3 15:22:04 Chronic obstruct [place] pulmonar y disease 62754495 Active 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 Just above goal of less than 100. Has no history of CVA, TIA, CAD, PVD or DM. Cannot calculat e CV risk per AHA calculat ion due to age. Hold off on statin. Work on diet adn exercise . JCARLOS WILL quintanilla, [facility] 9 09:43:53 Knee pain Completed 04/09/2021 LIAM CARBALLO [address], [place], [address], [facility] 2 17:00:08 Tobacco dependen ce syndrome 35940664 Completed 04/09/2021 LIAM CARBALLO [address], [place], [address], [facility] 2 17:00:18 Osteopen ia 785106965 Active [facility] 9 15:35:52 Lighthea dedness 689328354 Completed 03/26/2016 Asha Self [facility] 7 09:38:57 Pneumoni a 426656861 Completed 03/26/2016 Asha Self [facility] 7 09:38:45 Foot pain 98712145 Completed 04/09/2021 LIAM CARBALLO [address], [place], [address], [facility] 2 16:59:47 Multiple nodules of lung 485787057 Active [address] rodriguez -- stable CT chest via pulm consult 01/25/17 and consult 01/20/18 DONNA quintanilla, [facility], [facility] 15:35:52 Body mass index 25-29 - overweig ht 703623336 Completed 201503/26/2016 LIAM CARBALLO [address], [place], [address], [facility] [place], [facility] 2 16:59:26 Disorder of vitamin B12 321627818 Active 2015 DONNA quintanilla [facility], [facility] 9 15:35:52 Body mass index 30+ - obesity 503201845 Completed 201602/11/2017 DONNABARBARA [facility]IVERJOVANNY [facility], [facility] 8 08:44:05 Problem Notes None recorded. Procedures Surgical History Date Name Laterality Status Provider Name and Address Organization Details Recorded Time 3 Injections completed Hammad Pham [facility], [facility] 06/25/2022 10:35:10 3 Injections completed SANJEEV BILL [facility] 07/29/2022 09:33:44 3 Injections completed nadine nickerson [facility], [facility] 03/22/2022 13:49:14 2 Injections completed uri corbin [facility], [facility] 02/17/2022 15:29:52 2 Injections completed uri corbin [facility], [facility] 01/13/2022 13:53:39 2 [place] [address], [place], [address], [facility] [place], [facility] 02/07/2012 13:23:39 Imaging Results Imaging Date Name Status LastModified by Organiz ation Details LastModified Time 03/04/2022 XR, knee, 3 view completed [facility] [address], [place], [address], 05/27/2022 14:51:08 03/04/2022 XR, knee, 3 view completed [facility] [address], [place], [address], 05/27/2022 14:51:08 03/04/2022 XR, knee, 3 view completed [facility] [address] [place], [address], 05/27/2022 14:51:08 03/04/2022 XR, knee, 3 view completed [facility] [address] [place], [address], 05/27/2022 14:51:08 Procedure Notes None recorded. Medical Equipment None Reported. Allergies Allergen ID Allergen Name Allergen Category Reaction Reaction Severity Criticality Documentation Date Start Date Code Code System Note Provider Name and Address Organization Details Recorded Time 17912 latex environme nt,medica tion hives Not available Not available 02/12/2014 69928 91 RxNorm ashly castillo [facility] 4 09:04:41 94 Substance with sulfonami de structure and antibacte rial mechanism of action (substanc e) medicatio n Not available Not available Not available 02/07/2012 33968 8003 SNOMED Russell [facility] 2 13:06:50 Medications Name Sig Start [...] Updated DateTime 2 152.4 cm 29.3 kg/m2 07178.8 6 g 97.6 [degF] 16 /min 79 /min 95 % 95 % 136 mm[Hg] 73 mm[Hg] YANNICK MALIK [facility], [facility] 2 11:30:57 Date Recorded Body height Body mass index (BMI) Body weight Heart rate Oxygen saturation Oxygen saturation in Arterial blood by Pulse oximetry Respiratory rate Body temperature Systolic blood pressure Diastolic blood pressure Provider Name and Address Organization Details Last Updated DateTime 3 152.4 cm 29.5 kg/m2 27055.4 5 g 79 /min 96 % 96 % 16 /min 97.8 [degF] 118 mm[Hg] 60 mm[Hg] Hammad Pham [facility], [facility] 3 14:46:48 Date Recorded Body height Body mass index (BMI) Body weight Respiratory rate Body temperature Oxygen saturation Oxygen saturation in Arterial blood by Pulse oximetry Heart rate Systolic blood pressure Diastolic blood pressure Provider Name and Address Organization Details Last Updated DateTime 3 152.4 cm 30.5 kg/m2 95111.4 1 g 16 /min 97.6 [degF] 91 % 91 % 82 /min 132 mm[Hg] 68 mm[Hg] uri corbin [facility], [facility] 3 13:37:48 Date Recorded Respiratory rate Heart rate Oxygen saturation Oxygen saturation in Arterial blood by Pulse oximetry Body temperature Systolic blood pressure Diastolic blood pressure Provider Name and Address Organization Details Last Updated DateTime 3 16 /min 85 /min 94 % 94 % 97.7 [degF] 121 mm[Hg] 71 mm[Hg] Hammad Pham [facility] 3 10:37:29 Social History Question Answer Notes LastModified by Organizat ion Details LastModified Time Tobacco Smoking Status Former Smoker Not Available [facility] 01/08/2020 03:18:43 Do You Have An Advance Directive? Yes Information not available 06/23/2020 What Is Your Level Of Alcohol Consumption? None [email or web address] Information not available 06/23/2020 Are You Blind Or Do You Have Difficulty Seeing? No Information not available 06/23/2020 Is Blood Transfusion Acceptable In An Emergency? Yes [email or web address] Information not available 02/02/2022 What Is Your Level Of Caffeine Consumption? Occasional Information not available 06/23/2020 How Much Tobacco Do You Chew? None Information not available 06/23/2020 What Is Your Code Status? DNR Information not available 02/02/2022 Are You Deaf Or Do You Have Serious Difficulty Hearing? No Information not available 02/02/2022 What Type Of Diet Are You Following? REGULAR [email or web address] Information not available 06/23/2020 Do You Have A Directive To Physicians? 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 0 Information not available 04/16/2016 Are There Any Guns Present In Your Home? Yes [email or web address] Information not available 06/23/2020 Hard Of Hearing Or Deaf In One Or Both Ears? No [email or web address] Information not available 02/07/2012 Single Or Multi-level Home/work? Multi Level Home Information not available 06/23/2016 Legally Blind In One Or Both Eyes? No Information not available 02/07/2012 Live Alone Or [...] Pets Information not available 06/30/2017 Marital Status [email or web address] Informatio n not available 02/07/2012 Do You Have A Medical Power Of Telecommunications Analyst? Yes [email or web address] Information not available 02/02/2022 What Was The Date Of Your Most Recent Tobacco Screening? 02/02/2022 [email or web address] Information not available 02/02/2022 Do You Have An Out Of Hospital DNR? No [email or web address] Information not available 02/02/2022 Performs Monthly Self-breast Exam? No [email or web address] Information not available 02/07/2012 Do You Use Your Seat Belt Or Car Seat Routinely? Yes Information not available 06/23/2020 Seat Belts Used Routinely Yes [email or web address] Information not available 02/07/2012 Smoke Alarm In Home Yes Information not available 02/07/2012 How Much Tobacco Do You Smoke? 1 PPD Information not available 06/23/2020 General Stress Level Low [email or web address] Information not available 02/07/2012 Do You Use Sunscreen Routinely? No [email or web address] Information not available 06/23/2020 How Many Years Have You Smoked Tobacco? 20 [email or web address] Information not available 06/23/2020 Sex: Unknown Functional Status Question Answer Note LastModified by Organizat ion Details LastModified Time Do you have difficulty walking or climbing stairs? No [email or web address] Information not available 06/23/2020 Do you have difficulty doing errands alone? No [email or web address] Information not available 06/23/2020 Are you able to care for yourself? Yes [email or web address] Information not available 06/23/2020 Do you have difficulty dressing or bathing? No [email or web address] Information not available 06/23/2020 What is your exercise level? Occasional Information not available 06/23/2020 Mental Status Question Answer Note LastModified by Organization D etails LastModified Time Do you have difficulty concentrating, remembering or making decisions? No [email or web address] Information no t available 06/23/2020 Family History Relationship Description Onset Age of this Age Resolved Age Notes LastModified by Organization Details LastModified Time Mother Primary malignant neoplasm of pancreas [email or web address] Not available 2015 10:20:53 Medical History Condition [...] pneumococcal polysaccharide PPV23 8 completed Not Available [facility] 06/10/2022 00:28:19 Influenza, split virus, trivalent, preservative 2 completed Not Available [facility] 06/10/2022 00:28:19 Influenza, adjuvanted, quadrivalent, PF 1 completed Not Available [facility] 06/10/2022 00:28:19 influenza, unspecified formulation 2 completed Not Available [facility] 06/10/2022 00:28:19 influenza nasal, unspecified formulation 3 completed Not Available [facility] 06/10/2022 00:28:20 zoster live 3 completed Not Available [facility] 07/25/2022 00:15:24 Pneumococcal conjugate PCV 13 5 completed Not Available [facility] 03/31/2019 02:36:20 Influenza, high-dose, trivalent, PF 4 completed Not Available [facility] 06/10/2022 00:28:19 Tdap 4 completed Not Available [facility] 06/10/2022 00:28:19 zoster recombinant 0 completed [place] [address] [place] [address] [address], [place], [address], [facility], [facility] 01/10/2020 19:09:16 Influenza, split virus, trivalent, preservative 2 completed Not Available [facility] 06/10/2022 00:28:20 zoster live 3 completed Not Available [facility] 06/10/2022 00:28:19 Novel [id number], all formulations 9 completed Not Available [facility] 07/25/2022 00:15:24 Influenza, high-dose, trivalent, PF 5 completed Not Available [facility] 06/10/2022 00:28:19 zoster recombinant 1 completed Rajiv [place] [address] [place] [address] [address], [place], [address], [facility], [facility] 06/13/2020 14:49:33 Influenza, high-dose, trivalent, PF 6 completed Not Available [facility] 06/10/2022 00:28:19 Novel [id number] 9 completed Not Available [facility] 06/10/2022 00:28:20 Influenza, high-dose, trivalent, PF 7 completed Not Available [facility] 06/10/2022 00:28:19 zoster live 3 completed Not Available [facility] 06/10/2022 00:28:19 influenza, unspecified formulation 8 completed Not [facility] 06/10/2022 00:28:19 Influenza, split virus, quadrivalent, preservative 9 completed Not Available [facility] 06/10/2022 00:28:19 Influenza, adjuvanted, quadrivalent, PF 0 completed Not Available [facility] 06/10/2022 00:28:19 Influenza, split virus, quadrivalent, preservative 6 completed Not Available [facility] 06/10/2022 00:28:19 Influenza, split virus, quadrivalent, preservative 0 completed Not Available [facility] 06/10/2022 00:28:19 Past Encounters Encounter ID Performer Location Encounter Start Date Encounter Closed Date Diagnosis/Indication Diagnosis SNOMED-CT Code Diagnosis ICD10 Code Diagnosis Note [id number] [facility]iv Red [facility] [address] [facility] [address] [place] [address] 02/07/2012 12:42:24 02/07/2012 13:34:51 [id number] Valeria Be OFFICE [address] [facility] [address] [place] [address] 03/01/2012 13:12:11 03/01/2012 13:44:13 [id number] Nicole Red OFFICE [address] [facility] [address] [place] [address] 03/15/2012 08:52:27 03/15/2012 09:42:59 [id number] Nicole Red OFFICE [address] [facility] n [facility] [address] [place] [address] 04/21/2012 10:08:03 04/21/2012 11:14:32 [id number] [facility] [address] [facility] [address] [place] [address] 06/19/2013 08:50:48 06/19/2013 10:07:41 Dyspnea 959948005 Asthma 270372846 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 425900711 Vitamin D deficiency 08354633 Hip pain 39726542 [id number] Valeria Be OFFICE [address] [place] [address] 07/09/2013 07:12:45 07/09/2013 07:51:45 Chronic obstructive pulmonary disease 85783465 Dyspnea 514121640 Hip pain 01561963 Vitamin D deficiency 00292447 [id number] Valeria Be OFFICE [address] [facility] [address] [place] [address] 07/09/2013 09:17:30 07/09/2013 09:29:33 Adult health examination [id number] OFFICE [address] [facility] [address] [place] [address] 01/01/2014 10:53:18 01/01/2014 12:55:01 Asthma 749977691 Chronic ob structive pulmonary disease 22725851 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 526297189 Disorder o f lipid metabolism 948611277 Vitamin D deficiency 69803957 [id number] OFFICE [address] [facility] [address] [place] [address] 02/12/2014 09:02:09 02/12/2014 09:35:29 Chronic obstructive pulmonary disease 36818260 Disorder o f lipid metabolism 436868893 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 331958539 Knee pain 11194373 [id number] Rajiv Red MD OFFICE [address] [facility] [address] [place] [address] 02/27/2014 14:57:59 02/27/2014 16:03:30 Chronic obstructive pulmonary disease 39957920 Knee pain 52392987 Vitamin D deficiency 20863078 Disorder o f lipid metabolism 021038290 [id number] ashly castillo OFFICE [address] [facility] [address] [place] [address] 03/19/2014 11:01:18 03/19/2014 11:26:52 Acute bronchitis 22141486 Chronic ob structive pulmonary disease 94745806 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 098773499 Disorder o f lipid metabolism 120345128 [id number] Rajiv Red MD OFFICE [address] [facility] [address] [place] [address] 05/20/2014 09:09:11 05/20/2014 10:01:17 Disorder of lipid metabolism 724756268 Chronic ob structive pulmonary disease 89017566 Vitamin D deficiency 37391033 Asthma 581156892 Tobacco de pendence syndrome 85985155 [id number] Rajiv Red MD OFFICE [address] [facility] [address] [place] [address] 02/12/2015 08:55:36 02/12/2015 10:04:31 Chronic obstructive pulmonary disease 89149367 J44.9 Disorder o f lipid metabolism 363150538 E78.9 Osteopenia 291087019 M85 .80 Tobacco de pendence syndrome 26660916 F17.290 Vitamin D deficiency 347 77355 E55.9 Asthma 006368618 J45.90 9 Lightheadedness 38298025 8 R42 [id number] PJ Da OFFICE [address] [facility] [address] [place] [address] 03/21/2015 10:17:14 03/21/2015 11:21:29 Acute bronchitis 47654868 J20.9 Cough 88945761 R05 Disorder o f lipid metabolism 956065940 E78.9 Chronic ob structive pulmonary disease 86486321 J44.9 Pneumonia 648032097 J18. 9 Tobacco de pendence syndrome 85770058 F17.290 [id number] Rajiv Red MD OFFICE [address] [facility] [address] [place] [address] 4 03/27/2015 10:09:59 03/27/2015 10:27:46 Adult health examination 206826998 Z00.00 [id number] Rajiv Red MD OFFICE [address] [place] [address] [address] [place] [address] 05/07/2015 10:12:00 05/07/2015 11:18:55 Chronic obstructive pulmonary disease 76996571 J44.9 Disorder o f lipid metabolism 536124419 E78.9 Tobacco de pendence syndrome 89459164 F17.290 Hip pain 65642948 M25.55 2 Lightheadedness 26785285 8 R42 Foot pain 20966046 M79.6 71 M79.672 [id number] Rajiv Red MD OFFICE [address] [facility] [address] [place] [address] 05/13/2015 09:28:39 05/13/2015 11:01:51 Pneumonia 074476716 J18.9 Chronic ob structive pulmonary disease 25107277 J44.9 Disorder o f lipid metabolism 393661903 E78.9 Multiple n odules of lung 199289988 R91.8 [id number] Rajiv Red MD OFFICE [address] [facility] [address] [place] [address] 05/19/2015 08:30:44 05/19/2015 08:49:36 Chronic obstructive pulmonary disease 83305275 J44.9 Cough 45506955 R05 Multiple n odules of lung 391367106 R91.8 Pneumonia 414191068 J18. 9 Disorder o f lipid metabolism 557725183 E78.9 Acute bronchitis 3119205 2 J20.9 [id number] Rajiv Red MD OFFICE [address] [facility] [address] [place] [address] 4 05/22/2015 12:11:39 05/22/2015 12:51:08 Disorder of lipid metabolism 365285070 E78.9 Chronic ob structive pulmonary disease 38967324 J44.9 Multiple n odules of lung 814782822 R91.8 Vitamin D deficiency 347 41422 E55.9 Acute bronchitis 4651830 2 J20.9 [id number] Rajiv Red MD OFFICE [address] [place] [address] [address] [place] [address] 4 06/12/2015 08:39:02 06/12/2015 09:40:39 Acute bronchitis 30556772 J20.9 Chronic ob structive pulmonary disease 01471749 J44.9 Disorder o f lipid metabolism 719520774 E78.9 Vitamin D deficiency 347 06217 E55.9 Multiple n odules of lung 882718501 R91.8 [id number] Rajiv Red MD OFFICE [address] [place] [address] [address] [place] [address] 4 01/05/2016 10:13:33 01/05/2016 11:31:04 Disorder of lipid metabolism 575453919 E78.9 Chronic ob structive pulmonary disease 39320243 J44.9 Multiple n odules of lung 145570520 R91.8 Asthma 024514179 J45.90 9 Vitamin D deficiency 347 56967 E55.9 Disorder o f vitamin B12 368322995 E53.8 [id number] Rajiv Red MD OFFICE [address] [place] [address] [address] [place] [address] 4 01/23/2016 13:03:58 01/23/2016 14:09:20 Multiple nodules of lung 207789736 R91.8 Chronic ob structive pulmonary disease 87180517 J44.9 Body mass index 25-29 - overweight 133671344 Z68.29 Disorder o f lipid metabolism 614181788 E78.9 Disorder o f vitamin B12 102236901 E53.8 [id number] Rajiv Red MD OFFICE [address] [facility] [address] [place] [address] 4 01/26/2016 09:52:20 01/26/2016 10:16:13 Disorder of vitamin B12 606997299 E53.8 [id number] Rajiv Red MD OFFICE [address] [facility] [address] [place] [address] 4 02/02/2016 08:53:21 02/04/2016 13:44:02 Disorder of vitamin B12 919894544 E53.8 [id number] Rajiv Red MD OFFICE [address] [facility] [address] [place] [address] 4 02/09/2016 08:26:40 02/09/2016 08:35:58 Disorder of vitamin B12 468488473 E53.8 [id number] Rajiv Red MD OFFICE [address] [facility] [address] [place] [address] 4 02/16/2016 09:02:19 02/16/2016 14:15:36 Disorder of vitamin B12 760625699 E53.8 [id number] Rajiv Red MD OFFICE [address] [facility] [address] [place] [address] 4 03/16/2016 08:04:02 03/16/2016 08:21:59 Disorder of vitamin B12 248848233 E53.8 [id number] Rajiv Red MD OFFICE [address] [facility] [address] [place] [address] 4 03/26/2016 09:26:32 03/26/2016 10:58:10 Multiple nodules of lung 393878445 R91.8 Vitamin D deficiency 347 45409 E55.9 Disorder o f vitamin B12 950322396 E53.8 Body mass index 30+ - obesity 763776722 Z68.39 Chronic ob structive pulmonary disease 09180797 J44.9 Disorder o f lipid metabolism 671390765 E78.9 Osteopenia 870162396 M85 .80 Body mass index 25-29 - overweight 185636417 Z68.29 [id number] Rajiv Red MD OFFICE [address] [facility] [address] [place] [address] 4 04/16/2016 12:21:26 04/16/2016 12:30:59 Disorder of vitamin B12 320546490 E53.8 [id number] Rajiv Red MD OFFICE [address] [place] [address] [address] [place] [address] 05/12/2016 10:21:34 05/12/2016 10:58:42 Disorder of vitamin B12 057119616 E53.8 [id number] Rajiv Red MD OFFICE [address] [place] [address] [address] [place] [address] 4 06/14/2016 10:45:52 06/14/2016 11:04:52 Disorder of vitamin B12 454122228 E53.8 [id number] Rajiv Red MD OFFICE [address] [place] [address] [address] [place] [address] 4 06/22/2016 15:26:44 06/22/2016 16:46:13 Disorder of vitamin B12 278932624 E53.8 Disorder o f lipid metabolism 277627252 E78.9 Chronic ob structive pulmonary disease 19125086 J44.9 Body mass index 30+ - obesity 340443590 Z68.30 Depression screening 171 904550 Z13.89 Multiple n odules of lung 041386714 R91.8 [id number] Rajiv Red MD OFFICE [address] [place] [address] [address] [place] [address] 4 06/23/2016 08:02:28 06/23/2016 11:14:42 Adult health examination 059614116 Z00.00 [id number] Rajiv Red MD OFFICE [address] [place] [address] [address] [place] [address] 01/18/2017 09:26:16 01/18/2017 15:23:01 Disorder of vitamin B12 417816479 E53.8 [id number] Rajiv Red MD OFFICE [address] [place] [address] [address] [place] [address] 4 02/11/2017 14:00:48 02/11/2017 15:55:40 Disorder of lipid metabolism 297552401 E78.9 Vitamin D deficiency 347 29612 E55.9 Disorder o f vitamin B12 580289279 E53.8 Chronic ob structive pulmonary disease 78670104 J44.9 Long-term drug therapy 711758949 Z79.899 Body mass index 25-29 - overweight 772422713 Z68.29 Multiple n odules of lung 312231872 R91.8 Essential hypertension 62048644 I10 [id number] Rajiv Red MD OFFICE [address] [facility] [address] [place] [address] 02/25/2017 14:54:27 02/25/2017 15:59:32 Vitamin D deficiency 89403257 E55.9 Disorder o f lipid metabolism 667284553 E78.9 Chronic ob structive pulmonary disease 57106341 J44.9 Long-term drug therapy 519874509 Z79.899 Body mass index 25-29 - overweight 509279859 Z68.29 Essential hypertension 72070480 I10 Varicose v eins of lower extremity 92208727 I83.891 [id number] Rajiv Red MD OFFICE [address] [facility] [address] [place] [address] 03/15/2017 08:16:31 03/15/2017 09:06:18 Essential hypertension 63771292 I10 Disorder o f lipid metabolism 452788821 E78.9 Long-term drug therapy 717092985 Z79.899 Body mass index 25-29 - overweight 619158648 Z68.29 Disorder o f vitamin B12 015691073 E53.8 Venous varices 628948145 I83.92 Cough 25406264 R05 [id number] Elizabeth Koo OFFICE [address] [facility] [address] [place] [address] 03/30/2017 13:50:57 03/30/2017 14:45:39 Essential hypertension 67863015 I10 Long-term drug therapy 465083416 Z79.899 Body mass index 25-29 - overweight 643578244 Z68.29 [id number] Rajiv Red MD OFFICE [address] [facility] [address] [place] [address] 04/08/2017 08:58:00 04/08/2017 09:46:13 Disorder of vitamin B12 531314910 E53.8 [id number] Rajiv Red MD OFFICE [address] [facility] [address] [place] [address] 4 04/26/2017 14:31:07 04/26/2017 15:38:55 Disorder of lipid metabolism 329273080 E78.9 Disorder o f vitamin B12 781511147 E53.8 Multiple n odules of lung 362085463 R91.8 Chronic ob structive pulmonary disease 31906839 J44.9 Essential hypertension 94759208 I10 Long-term drug therapy 324783400 Z79.899 Body mass index 25-29 - overweight 125945705 Z68.29 [id number] Rajiv Red MD OFFICE [address] [facility] [address] [place] [address] 05/05/2017 07:13:09 05/05/2017 07:53:43 Multiple nodules of lung 518580120 R91.8 Chronic ob structive pulmonary disease 64357320 J44.9 Essential hypertension 33310138 I10 Disorder o f lipid metabolism 824187763 E78.9 Long-term drug therapy 294176575 Z79.899 Depression screening 171 971653 Z13.89 Body mass index 30+ - obesity 737600384 Z68.30 [id number] Elizabeth Hayes OFFICE [address] [facility] [address] [place] [address] 05/13/2017 11:15:47 05/13/2017 13:25:11 Disorder of vitamin B12 205500517 E53.8 [id number] Rajiv Red MD OFFICE [address] [facility] [address] [place] [address] 06/03/2017 08:03:43 06/03/2017 09:09:35 Multiple nodules of lung 807094177 R91.8 Chronic ob structive pulmonary disease 98924849 J44.9 Essential hypertension 71357680 I10 Long-term drug therapy 236692678 Z79.899 Body mass index 25-29 - overweight 478093912 Z68.29 Disorder o f lipid metabolism 740163488 E78.9 Blurring o f visual image 154296080 H53.8 Cough 09267417 R05 [id number] Rajiv Red MD OFFICE [address] [facility] [address] [place] [address] 4 06/17/2017 08:53:22 06/17/2017 10:04:12 Multiple nodules of lung 507974097 R91.8 Chronic ob structive pulmonary disease 41087897 J44.9 Disorder o f lipid metabolism 717955995 E78.9 Essential hypertension 65149466 I10 Long-term drug therapy 450216687 Z79.899 Body mass index 30+ - obesity 557831889 Z68.31 Disorder o f vitamin B12 874806093 E53.8 [id number] Rajiv Red MD OFFICE [address] [facility] [address] [place] [address] 4 06/29/2017 07:08:07 06/29/2017 07:53:52 Multiple nodules of lung 964896455 R91.8 Chronic ob structive pulmonary disease 62466745 J44.9 Essential hypertension 48158091 I10 Long-term drug therapy 786677042 Z79.899 Body mass index 25-29 - overweight 450233326 Z68.29 Venous varices 314453727 I83.92 Dizziness 722412418 R42 Orthostati c hypotension 03810796 I95.1 [id number] Rajiv Red MD OFFICE [address] [place] [address] [address] [place] [address] 4 06/30/2017 08:35:51 06/30/2017 14:42:18 Adult health examination 006486894 Z00.00 [id number] Rajiv Red MD OFFICE [address] [facility] [address] [place] [address] 4 07/07/2017 08:26:41 07/07/2017 09:15:58 Essential hypertension 86272739 I10 Disorder o f lipid metabolism 394416191 E78.9 Chronic ob structive pulmonary disease 87231062 J44.9 Disorder o f vitamin B12 779699525 E53.8 Long-term drug therapy 846059877 Z79.899 Body mass index 30+ - obesity 261388020 Z68.30 Venous varices 936375336 I83.90 Multiple n odules of lung 887600274 R91.8 Orthostati c hypotension 62862958 I95.1 Impacted cerumen 5090614 6 H61.21 [id number] Rajiv Red MD OFFICE [address] [facility] [address] [place] [address] 07/11/2017 10:36:49 07/11/2017 11:15:16 Essential hypertension 13273357 I10 Disorder o f lipid metabolism 072370046 E78.9 Disorder o f vitamin B12 329887183 E53.8 Chronic ob structive pulmonary disease 73467248 J44.9 Long-term drug therapy 346993329 Z79.899 Body mass index 30+ - obesity 301810585 Z68.30 Impacted cerumen 6626783 6 H61.21 [id number] Rajiv Red MD OFFICE [address] [place] [address] [address] [place] [address] 4 01/06/2018 09:38:16 01/06/2018 11:29:37 Essential hypertension 82464195 I10 Disorder o f lipid metabolism 879912787 E78.9 Chronic ob structive pulmonary disease 83694181 J44.9 Vitamin D deficiency 347 33880 E55.9 Tobacco de pendence syndrome 22574620 F17.290 Long-term drug therapy 521444500 Z79.899 Body mass index 30+ - obesity 777425579 Z68.30 Disorder o f vitamin B12 465201305 E53.8 Multiple n odules of lung 072498325 R91.8 Venous varices 524251942 I83.92 Dizziness 160682997 R42 Orthostati c hypotension 85551603 I95.1 [id number] Rajiv Red MD OFFICE [address] [place] [address] Road [address] [place] [address] 4 01/19/2018 15:36:10 01/20/2018 09:41:13 Essential hypertension 30103448 I10 Disorder o f lipid metabolism 704210004 E78.9 Dizziness 064434176 R42 Chronic ob structive pulmonary disease 98968119 J44.9 Asthma 038442383 J45.90 9 Long-term drug therapy 098021177 Z79.899 Body mass index 30+ - obesity 163150575 Z68.30 Multiple n odules of lung 261802242 R91.8 Disorder o f vitamin B12 592047273 E53.8 Venous varices 901719242 I83.92 Vertigo 054363962 R42 Orthostati c hypotension 87032129 I95.1 Syncope 514478379 R55 [id number] Rajiv Red MD OFFICE [address] [place] [address] [address] [place] [address] 4 02/06/2018 13:57:44 02/06/2018 15:34:36 Essential hypertension 84033722 I10 Vertigo 319050938 R42 Dizziness 012038916 R42 Syncope 998828013 R55 Chronic ob structive pulmonary disease 50955899 J44.9 Orthostati c hypotension 38405658 I95.1 Long-term drug therapy 712459861 Z79.899 Body mass index 30+ - obesity 159588289 Z68.31 Disorder o f vitamin B12 346638850 E53.8 Multiple n odules of lung 893726271 R91.8 Pulmonary hypertension 46914639 I27.20 Palpitations 44836526 R0 0.2 [id number] Rajiv Red MD OFFICE [address] [place] [address] [address] [place] [address] 4 02/27/2018 14:40:20 02/27/2018 15:09:24 Essential hypertension 15456146 I10 Chronic ob structive pulmonary disease 90994640 J44.9 Tobacco de pendence syndrome 15380021 F17.290 Vertigo 870531031 R42 Long-term drug therapy 514495220 Z79.899 Body mass index 30+ - obesity 307864927 Z68.31 Supraventr icular tachycardia 2942550 I47.1 Ventricula r tachycardia 76306373 I47.2 Lightheadedness 54674272 8 R42 Syncope 755191508 R55 [id number] Rajiv Red MD OFFICE [address] [place] [address] [address] [place] [address] 4 03/30/2018 13:43:09 03/30/2018 15:08:43 Chronic obstructive pulmonary disease 79637283 J44.9 Essential hypertension 46329426 I10 Disorder o f lipid metabolism 434096312 E78.9 Long-term drug therapy 799988464 Z79.899 Body mass index 30+ - obesity 174673018 Z68.31 Depression screening 171 076538 Z13.89 Syncope 150463408 R55 Supraventr icular tachycardia 8140892 I47.1 Ventricula r tachycardia 20070070 I47.2 Disorder o f vitamin B12 067336837 E53.8 [id number] Rajiv Red MD OFFICE [address] [place] [address] [address] [place] [address] 4 05/19/2018 08:52:38 05/19/2018 10:36:23 Chronic obstructive pulmonary disease 80582324 J44.9 Stable. Continue inhalers. Continue follow-up with pulmonary. Disorder o f lipid metabolism 315904870 E78.9 Stable on statin therapy. No change in regimen. Screening abdominal aortic aneurysm performed in office today. Results revealed aorta < 3cm. These results were discussed and reviewed with the patient. Multiple n odules of lung 752321193 R91.8 Stable. Continue follow-up with pulmonary. Body mass index 30+ - obesity 350595098 Z68.30 Down 6 lbs. The patient is to work on weight with proper diet and exercise. Patient knows to eat a low sodium, low cholestero l and low carbohydra te diet. Patient is to stay active and exercise at least 30 to 45 minutes 3-5 times a week or as best tolerated. Patient understand s and agrees to the plan. Long-term drug therapy 254336960 Z79.899 Disorder o f vitamin B12 364188054 E53.8 Stable. Continue supplement s. Received injection today. Given by MA. Essential hypertension 08438975 I10 Stable. Continue current regimen. Cough 25747909 R05 New onset dry cough Began after [...] pulmonary also if no better after changes. [id number] Rajiv Red MD OFFICE [address] [facility] [address] [place] [address] 06/08/2018 09:39:23 06/08/2018 10:49:58 Supraventricular tachycardia 5142497 I47.1 HR stable on lower dose of BB Essential hypertension 16757153 I10 Stable. Continue current regimen. Chronic ob structive pulmonary disease 66126482 J44.9 Stable. Continue inhalers. Continue follow-up with pulmonary. Multiple n odules of lung 138719998 R91.8 Stable. Continue follow-up with pulmonary. Disorder o f lipid metabolism 229032267 E78.9 Stable on statin therapy. Continue regimen. Body mass index 30+ - obesity 081120531 Z68.31 Was down 6lbs but now up [...] agrees to the plan. Long-term drug therapy 828350838 Z79.899 Cough 29888498 R05 Recent new onset dry cough This [...] Discussed following up with her PCP [place]. We will see her back in 1 month prior to going home. [id number] Rajiv Red MD OFFICE [address] [place] [address] [address] [place] [address] 4 07/06/2018 09:52:07 07/06/2018 10:52:31 Disorder of vitamin B12 564662658 E53.8 Stable. Continue supplement s. Received injection today. Given by [facility]. Disorder o f lipid metabolism 642897435 E78.9 Stable on statin therapy. Continue regimen. Essential hypertension 66180531 I10 Stable. Continue current regimen. Chronic ob structive pulmonary disease 36203304 J44.9 Stable. Continue inhalers. Continue follow-up with pulmonary. Long-term drug therapy 599891609 Z79.899 Body mass index 30+ - obesity 377691596 Z68.30 Was down 6lbs but now up [...] to the plan. Alcohol co nsumption screening 619322216 Z13.89 Leukopenia 96065586 D72. 819 New onset at 4.1. B12 low normal. No B symptoms. Going up [place]. Suggest repeat lab with provider up [place]. [id number] Rajiv Red MD OFFICE [address] [facility] [address] [place] [address] 01/08/2019 15:31:45 01/08/2019 16:48:07 Essential hypertension 08864079 I10 Disorder o f lipid metabolism 430301349 E78.9 Supraventr icular tachycardia 4052588 I47.1 Long-term drug therapy 675122358 Z79.899 Body mass index 30+ - obesity 139847262 Z68.30 Fatigue 59830887 R53.83 [id number] Rajiv Red MD OFFICE [address] [facility] [address] [place] [address] 03/12/2019 14:09:18 03/12/2019 14:47:08 Essential hypertension 91164868 I10 Chronic ob structive pulmonary disease 93678151 J44.9 Disorder o f lipid metabolism 264884436 E78.9 Asthma 807049543 J45.90 9 Supraventr icular tachycardia 2879924 I47.1 Leukopenia 36159856 D72. 819 Long-term drug therapy 032033433 Z79.899 Body mass index 30+ - obesity 115396576 Z68.30 Disorder o f vitamin B12 681970047 E53.8 Serum crea tinine above reference range 296797392 R79.89 [id number] Rajiv Red MD OFFICE [address] [facility] [address] [place] [address] 03/16/2019 14:26:34 03/16/2019 14:34:38 Adult health examination 224839392 Z00.00 [id number] Rajiv Red MD OFFICE [address] [facility] [address] [place] [address] 04/03/2019 09:59:30 04/03/2019 11:07:46 Disorder of lipid metabolism 501484489 E78.9 Essential hypertension 01996032 I10 Chronic ob structive pulmonary disease 09012901 J44.9 Long-term drug therapy 393417460 Z79.899 Body mass index 30+ - obesity 351116960 Z68.31 Depression screening 171 194027 Z13.89 Acute bronchitis 6036822 2 J20.9 Influenza 6807850 J11.1 [id number] Rajiv Red MD OFFICE [address] [place] [address] [address] [place] [address] 4 04/04/2019 09:51:52 04/04/2019 11:31:27 Essential hypertension 76925265 I10 Disorder o f lipid metabolism 360532842 E78.9 Leukopenia 43633965 D72. 819 Supraventr icular tachycardia 2614536 I47.1 Chronic ob structive pulmonary disease 74536622 J44.9 Asthma 234818529 J45.90 9 Long-term drug therapy 255472941 Z79.899 Body mass index 30+ - obesity 691797167 Z68.31 Acute bronchitis 4314238 2 J20.9 [id number] Rajiv Red MD OFFICE [address] [place] [address] [address] [place] [address] 4 04/11/2019 10:21:30 04/11/2019 11:17:17 Supraventricular tachycardia 8959875 I47.1 Pulmonary hypertension 71685723 I27.20 Essential hypertension 10602325 I10 Disorder o f lipid metabolism 749464275 E78.9 Chronic ob structive pulmonary disease 67333196 J44.9 Asthma 771038976 J45.90 9 Long-term drug therapy 543148330 Z79.899 Body mass index 30+ - obesity 548883837 Z68.31 Disorder o f vitamin B12 478224214 E53.8 Acute bronchitis 7600409 2 J20.9 [id number] Rajiv Red MD OFFICE [address] [place] [address] [address] [place] [address] 4 04/17/2019 13:10:14 04/17/2019 13:54:22 Supraventricular tachycardia 1686610 I47.1 Pulmonary hypertension 34616613 I27.20 Essential hypertension 55984554 I10 Chronic ob structive pulmonary disease 45950461 J44.9 Asthma 924386776 J45.90 9 Long-term drug therapy 957744320 Z79.899 Body mass index 30+ - obesity 226223127 Z68.31 Serum crea tinine above reference range 896287236 R79.89 [id number] Rajiv Red MD OFFICE [address] [place] [address] [address] [place], [place] [address] 4 04/23/2019 10:07:34 04/23/2019 11:08:58 Essential hypertension 30817493 I10 Disorder o f lipid metabolism 425477188 E78.9 Chronic ob structive pulmonary disease 65790932 J44.9 Long-term drug therapy 065871315 Z79.899 Body mass index 30+ - obesity 304924818 Z68.32 Serum crea tinine above reference range 768181497 R79.89 [id number] Rajiv Red MD OFFICE [address] [facility] [address] [place] [address] 05/14/2019 09:57:03 05/14/2019 11:08:01 Chronic kidney disease stage 3 957156492 N18.3 Supraventr icular tachycardia 9214875 I47.1 Disorder o f lipid metabolism 413326483 E78.9 Long-term drug therapy 672400835 Z79.899 Body mass index 30+ - obesity 629000670 Z68.32 Disorder o f vitamin B12 413159870 E53.8 Essential hypertension 99083485 I10 [id number] Rajiv Red MD OFFICE [address] [facility] [address] [place] [address] 06/04/2019 14:27:13 06/04/2019 15:17:08 Chronic kidney disease stage 3 629497517 N18.3 Disorder o f lipid metabolism 034017832 E78.9 Multiple n odules of lung 486837671 R91.8 Essential hypertension 42457041 I10 Long-term drug therapy 641021503 Z79.899 Body mass index 30+ - obesity 607021967 Z68.32 Cyst of kidney 779083777 N28.1 [id number] Rajiv Red MD OFFICE [address] [facility] [address] [place] [address] 07/09/2019 10:03:21 07/09/2019 10:46:10 Disorder of vitamin B12 679711285 E53.8 Essential hypertension 46265735 I10 Chronic ki dney disease stage 3 720165094 N18.3 Supraventr icular tachycardia 5162470 I47.1 Cyst of kidney 080283626 N28.1 Chronic ob structive pulmonary disease 71695263 J44.9 Long-term drug therapy 106779572 Z79.899 Body mass index 30+ - obesity 965774444 Z68.31 Pulmonary hypertension 36307819 I27.20 Fatigue 82860931 R53.83 [id number] Rajiv Red MD OFFICE [address] [place] [address] [address] [place] [address] 4 08/07/2019 12:36:55 08/07/2019 12:59:54 Disorder of vitamin B12 995753715 E53.8 [id number] Rajiv Red MD OFFICE [address] [place] [address] [address] [place] [address] 4 01/07/2020 10:37:53 01/07/2020 11:49:16 Essential hypertension 48638732 I10 Disorder o f vitamin B12 538089996 E53.8 Chronic ki dney disease stage 3 980096698 N18.31 Supraventr icular tachycardia 2833578 I47.1 Cyst of kidney 627490129 N28.1 Chronic ob structive pulmonary disease 27512375 J44.9 Pulmonary hypertension 63932188 I27.20 Long-term drug therapy 773334156 Z79.899 Body mass index 30+ - obesity 298950974 Z68.30 Disorder o f lipid metabolism 302950773 E78.9 Asthma 380444216 J45.90 9 Osteopenia 797376361 M85 .80 Alcohol co nsumption screening 279464412 Z13.89 Screening for osteoporosis 831123490 Z13.820 Normal grief reaction 27 8650410 F43.20 [id number] Rajiv Red MD OFFICE [address] [place] [address] [address] [place] [address] 4 01/10/2020 14:48:12 01/10/2020 15:05:35 Vitamin deficiency 52267248 E56.9 Immunization due 0903323 08 Z28.3 [id number] Rajiv Red MD OFFICE [address] [place] [address] [address] [place] [address] 4 02/21/2020 10:57:27 02/21/2020 12:11:59 Essential hypertension 10317891 I10 Supraventr icular tachycardia 7213398 I47.1 Cyst of kidney 679398678 N28.1 Pulmonary hypertension 43763195 I27.20 Osteopenia 590893841 M85 .80 Long-term drug therapy 476426719 Z79.899 Steatosis of liver 1007 K76.0 Gallstone 247565041 K80. 20 Computed t omography result abnormal 240214584 R93.89 Body mass index 25-29 - overweight 349683585 Z68.29 Vitamin deficiency 54483 002 E56.9 [id number] Rajiv Red MD OFFICE [address] [place] [address] [address] [place] [address] 4 03/11/2020 11:34:04 03/11/2020 12:10:06 Disorder of vitamin B12 360347005 E53.8 [id number] Rajiv Red MD OFFICE [address] [place] [address] [address] [place] [address] 4 04/03/2020 10:24:31 04/03/2020 11:24:03 Depression screening 717869073 Z13.89 Essential hypertension 72337025 I10 Supraventr icular tachycardia 8257259 I47.1 Cyst of kidney 448749381 N28.1 Long-term drug therapy 267789974 Z79.899 Pulmonary hypertension 41784825 I27.20 Steatosis of liver 1007 K76.0 Computed t omography result abnormal 804547303 R93.89 Body mass index 25-29 - overweight 748368169 Z68.29 [id number] Rajiv Red MD OFFICE [address] [place] [address] [address] [place] [address] 04/21/2020 09:07:20 04/21/2020 09:18:52 Disorder of vitamin B12 000514077 E53.8 [id number] Rajiv Red MD OFFICE [address] [place] [address] [address] [place] [address] 4 05/05/2020 10:38:03 05/05/2020 12:05:36 Essential hypertension 80769779 I10 Supraventr icular tachycardia 9448187 I47.1 Cyst of kidney 196426167 N28.1 Pulmonary hypertension 42273069 I27.20 Steatosis of liver 1007 K76.0 Computed t omography result abnormal 149576990 R93.89 Long-term drug therapy 036940913 Z79.899 Body mass index 25-29 - overweight 158424957 Z68.29 Chronic ob structive pulmonary disease 19475882 J44.9 Chronic ki dney disease stage 3 008071313 N18.31 [id number] Rajiv Red MD OFFICE [address] [facility] [address] [place] [address] 05/06/2020 16:22:20 05/06/2020 16:32:54 Adult health examination 681970322 Z00.00 [id number] Rajiv Red MD OFFICE [address] [facility] [address] [place] [address] 05/07/2020 10:07:49 05/07/2020 11:02:47 Essential hypertension 07322455 I10 Long-term drug therapy 059852112 Z79.899 Exposure t o coronavirus infection 292757643 Z20.828 I wore proper PPE to examine patient. Limited physical exam due to COVID-19 infection to limit transmissi on of disease. Was able to contain enough informatio n by data review and discussion . Supraventr icular tachycardia 4986319 I47.1 Cyst of kidney 036442686 N28.1 Body mass index 25-29 - overweight 346566254 Z68.29 [id number] Rajiv Red MD OFFICE [address] [facility] [address] [place] [address] 05/29/2020 10:46:02 05/29/2020 12:10:28 Long-term drug therapy 255918028 Z79.899 Body mass index 25-29 - overweight 039400505 Z68.29 Essential hypertension 74319116 I10 Supraventr icular tachycardia 2948004 I47.1 COVID-19 213084504 U07.1 [id number] Rajiv Red MD OFFICE [address] [facility] [address] [place] [address] 06/13/2020 14:41:47 06/13/2020 15:00:46 Active or passive immunization 435489123 Z23 [id number] Rajiv Red MD OFFICE [address] [facility] [address] [place] [address] 06/23/2020 11:17:43 06/23/2020 12:12:30 Essential hypertension 56281252 I10 Cyst of kidney 278353650 N28.1 Pulmonary hypertension 68455487 I27.20 Computed t omography result abnormal 379335163 R93.89 Chronic ki dney disease stage 3 650972725 N18.31 Long-term drug therapy 610474972 Z79.899 Body mass index 25-29 - overweight 797273955 Z68.29 Disorder o f lipid metabolism 310388883 E78.9 Microscopic hematuria 19 7748227 R31.29 [id number] Rajiv Red MD OFFICE [address] [facility] [address] [place] [address] 01/05/2021 10:30:30 01/05/2021 11:25:07 Cyst of kidney 779732121 N28.1 renal ultrasound from her 2020 much improved Pulmonary hypertension 60203119 I27.20 likely result of COPD noted on echo Chronic ki dney disease stage 3 916978482 N18.31 follow-up labs avoid nephrotoxi ns Essential hypertension 68373095 I10 on olmesartan no dizziness or syncope Disorder o f lipid metabolism 500187320 E78.9 no myalgias or arthralgia s continue current approach Chronic ob structive pulmonary disease 46784209 J44.9 doing well no recent exacerbati on did give Covid 19 vaccine Disorder o f vitamin B12 153310249 E53.8 Body mass index 30+ - obesity 904093585 Z68.30 Long-term drug therapy 610105185 Z79.899 Fatigue 87236389 R53.83 Venous varices 659045887 I83.[address] Melo vascular surgery [id number] Rajiv Red MD OFFICE [address] [facility] [address] [place] [address] 03/02/2021 10:21:34 03/02/2021 11:15:57 Pulmonary hypertension 36862653 I27.20 03/02/21 Continue to follow with pulmonolog y for monitoring Disorder o f lipid metabolism 262241591 E78.9 03/02/21 Triglyceri prabhakar are elevated at 119 and LDL is elevated at 1 discussed low sugar, low-carb diet and routine exercise for improvemen t of these levels. Patient understood and agreed. Long-term drug therapy 664057533 Z79.899 Essential hypertension 65482780 I10 03/02/21 Blood pressure stable at today's visit with a reading of 122/78. Chronic ki dney disease stage 3 377621573 N18.31 03/02/21 Stable at this time. Continue to monitor with interval labs Cyst of kidney 809506084 N28.1 03/02/21 renal ultrasound from her 2020 much improved Body mass index 30+ - obesity 623611701 Z68.30 Chronic ob structive pulmonary disease 90160549 J44.9 03/02/21 Stable at this time. Continue to follow with pulmonolog y Disorder o f vitamin B12 591856167 E53.8 03/02/21 continue supplement ation Venous varices 336079690 I83.92 03/02/21 saw vascular surgery on 01/12/2021 for venous varices they recommende d conservati ve therapy at this time. Patient will keep legs elevated and wear compressio n stockings at this time. She will continue to follow with vascular surgery at this time. At [facility] risk for falls 624071480 Z91.81 declined PT Multiple n odules of lung 054014456 R91.8 03/02/21 saw pulmonolog y on 01/26/2021 . Patient has a history of lung nodules and recent chest CT showed no changes to the nodules at this time. She will continue to follow with pulmonolog y and will continue to have chest CTs annually. [id number] Rajiv Red MD OFFICE [id number] [place] [address] [address] [place] [address] 04/09/2021 13:55:51 04/09/2021 14:43:32 Disorder of vitamin B12 005817994 E53.8 Patient continue with B12 injections . She is doing well at this time. Continue with the regimen. Pulmonary hypertension 87370904 I27.20 Stable. Patient denies any cough shortness of breath or chest pain. Body mass index 30+ - obesity 152072751 Z68.30 Disorder o f lipid metabolism 855871952 E78.9 Stable. Although total cholestero l and HDL within the range, patient has high triglyceri prabhakar at 192 and LDL 101. She is taking no statin at this time. Patient declines further medical therapy. Long-term drug therapy 081069844 Z79.899 Essential hypertension 35240774 I10 Stable. Blood pressure today 116/64 at goal. Continue on present therapy. Chronic ki dney disease stage 3 078086897 N18.31 Stable. Her last GFR creatinine 1.01 and GFR 51 stable at this time we will continue monitoring . Patient is asymptomat ic at this time Acute cystitis 92108285 N30.00 New onset. Patient very symptomati c for the past few days. Patient advised to stop medical therapy on Macrobid milligrams twice daily for the next 5 days. I also advised on increase the water cranberry juice probiotics and avoid any irritants such as alcohol or coffee. Patient verbalizes understand ing. We will send out for culture Depression screening 171 619406 Z13.31 [id number] Rajiv Red MD OFFICE [id number] [place] [address] [address] [place] [phone] 05/20/2021 13:32:00 05/20/2021 14:38:07 Disorder of vitamin B12 596002402 E53.8 03/02/21 continue supplement ation [id number] Rajiv Red MD OFFICE [id number] [place] [address] [address] [place] [address] 05/28/2021 13:46:18 05/28/2021 15:22:50 Pulmonary hypertension 22713650 I27.20 05/28/21 stable. continue to monitor for symptoms Body mass index 30+ - obesity 462284957 Z68.30 05/28/21 continue to work on weight reduction Disorder o f lipid metabolism 185644008 E78.9 05/28/21 Not currently on statin therapy. Continue to control with diet and exercise Long-term drug therapy 188259707 Z79.899 Essential hypertension 80130560 I10 05/28/21 Blood pressure stable today with a reading of 128/70. Chronic ki dney disease stage 3 533764375 N18.31 05/28/21 stable. continue to monitor with interval labs Cyst of kidney 486936048 N28.1 05/28/21 continues to follow with Dr. Feliz from urology who monitors it. She also informs me that she has an appointmen t coming up with him at the beginning of June. Acute cystitis 32083099 N30.00 05/28/21 Resolved New onset. Patient very [...] for culture Disorder o f vitamin B12 071045476 E53.8 05/28/21 continue supplement ation Patient continue with B12 injections . She is doing well at this time. Continue with the regimen. Multiple n odules of lung 915736842 R91.8 05/28/21 continue to follow with Dr. Rodriguez with pulmonolog y for monitoring 03/02/21 saw pulmonolog y on 01/26/2021 . Patient has a history of lung nodules and recent chest CT showed no changes to the nodules at this time. She will continue to follow with pulmonolog y and will continue to have chest CTs annually. Chronic ob structive pulmonary disease 47386990 J44.9 05/28/21 Stable at this time. Continue to follow with Dr. Rodriguez with pulmonolog y Venous varices 794674577 I83.92 05/28/21 Continues to follow with Dr. Melo for monitoring 03/02/21 saw vascular surgery on 01/12/2021 for venous varices they recommende d conservati ve therapy at this time. Patient will keep legs elevated and wear compressio n stockings at this time. She will continue to follow with vascular surgery at this time. Fatigue 78890891 R53.83 [id number] Rajiv Red MD OFFICE [address] [facility] [address] [place] [address] 06/16/2021 14:41:05 06/16/2021 15:00:52 Disorder of vitamin B12 703110410 E53.8 05/28/21 continue supplement ation Patient continue with B12 injections . She is doing well at this time. Continue with the regimen. [id number] Rajiv Red MD OFFICE [address] [facility] [address] [place] [address] 09/23/2021 13:15:01 09/23/2021 13:47:12 Pulmonary hypertension 11381749 I27.20 Body mass index 30+ - obesity 685975515 Z68.30 09/22/21 continue to work on weight reduction Disorder o f lipid metabolism 621466982 E78.9 09/22/21 Not currently on statin therapy. Continue to control with diet and exercise Long-term drug therapy 684626041 Z79.899 Essential hypertension 37604262 I10 09/22/21 Continue current antihypert ensive medication regimen Chronic ki dney disease stage 3 572468763 N18.31 09/22/21 Stable. Continue to monitor with interval labs Cyst of kidney 135874807 N28.1 09/22/21 Continue to follow with urology for monitoring 05/28/21 continues to follow with Dr. Feliz from urology who monitors it. She also informs me that she has an appointmen t coming up with him at the beginning of June. Multiple n odules of lung 051641122 R91.8 09/22/21 continue to follow with Dr. Rodriguez with pulmonolog y for monitoring 03/02/21 saw pulmonolog y on 01/26/2021 . Patient has a history of lung nodules and recent chest CT showed no changes to the nodules at this time. She will continue to follow with pulmonolog y and will continue to have chest CTs annually. Chronic ob structive pulmonary disease 87613607 J44.9 09/22/21 Stable at this time. Continue to follow with Dr. Rodriguez with pulmonolog y Venous varices 532640608 I83.92 09/22/21 Continues to follow with Dr. eMlo for monitoring 03/02/21 saw vascular surgery on 01/12/2021 for venous varices they recommende d conservati ve therapy at this time. Patient will keep legs elevated and wear compressio n stockings at this time. She will continue to follow with vascular surgery at this time. Disorder o f vitamin B12 078947382 E53.8 09/22/21 continue supplement ation Patient continue with B12 injections . She is doing well at this time. Continue with the regimen. [id number] LIAM CARBALLO OFFICE [address] [facility] [address] [place] [address] 01/01/2022 10:02:06 01/01/2022 11:39:22 Essential hypertension 33550660 I10 01/01/2022 : Asymptomat ic. Stable. Controlled . Continue current medication regimen. Maintain low-sodium diet. 09/22/21 Continue current antihypert ensive medication regimen Multiple n odules of lung 806004031 R91.8 01/01/2022 : Patient continues to be [...] CTs annually. 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 No red flag symptoms. Continue current regimen. Recheck lipid panel. 09/22/21 Not currently on statin therapy. Continue to control with diet and exercise Chronic ob structive pulmonary disease 34603714 J44.9 01/01/2022 : Mildly worsening dyspnea on exertion since returning recently from [facility]. Patient has upcoming appointmen t with pulmonolog y in a few weeks. In the meantime, patient's Proventil is refilled. 09/22/21 Stable at this time. Continue to follow with Dr. Rodriguez with pulmonolog y Venous varices 919377592 I83.92 01/01/2022 : Patient seen by vascular [...] time. Chronic ki dney disease stage 3 639980009 N18.31 01/01/2022 : Stable. Stay well-hydra ivonne. Avoid nephrotoxi ns. CMP. 09/22/21 Stable. Continue to monitor with interval labs Body mass index 30+ - obesity 909966330 Z68.30 09/22/21 continue to work on weight reduction Long-term drug therapy 695478217 Z79.899 Asthma 473508134 J45.90 9 Alcohol co nsumption screening 487892337 Z13.89 Rheumatoid arthritis 698 06653 M06.9 01/01/2022 : Recently seen by rheumatkiarra howard in [facility]. received corticoste roid injection to the right wrist. Patient notes marked improvemen t. Patient also notes injection bilateral knees also marked improvemen t. [id number] LIAM CARBALLO OFFICE [address] [facility] [address] [place] [address] 01/13/2022 13:25:52 01/13/2022 14:45:07 Disorder of vitamin B12 862723302 E53.8 [id number] LIAM CARBALLO OFFICE [address] [facility] [address] [place] [address] 02/02/2022 10:21:39 02/02/2022 11:40:13 Essential hypertension 07923948 I10 02/02/2022 : Stable. Controlled . Asymptomat ic. Continue current medication regimen. 01/01/2022 : Asymptomat ic. Stable. Controlled . Continue current medication regimen. Maintain low-sodium diet. 09/22/21 Continue current antihypert ensive medication regimen Multiple n odules of lung 574745141 R91.8 02/02/2022 : Recently seen by pulmonolog [...] CTs annually. Disorder o f lipid metabolism 016998821 E78.9 02/02/2022 : Remains asymptomat ic. Lipid panel reviewed. Well-contr olled at goal. Continue current medication regimen. 01/01/2022 : Asymptomat ic. No red flag symptoms. Continue current regimen. Recheck lipid panel. 09/22/21 Not currently on statin therapy. Continue to control with diet and exercise Chronic ki dney disease stage 3 659439874 N18.31 02/02/2022 : Improved. EGFR now at 58. Patient is advised to stay well-hydra ivonne and avoid nephrotoxi ns. 01/01/2022 : Stable. Stay well-hydra ivonne. Avoid nephrotoxi ns. CMP. 09/22/21 Stable. Continue to monitor with interval labs Chronic ob structive pulmonary disease 14112536 J44.9 02/02/2022 : Stable. Recently seen by pulmonolog y. No changes. Doing well overall. Follow-up with pulmonolog y as scheduled, will follow along. 01/01/2022 : Mildly worsening dyspnea on exertion since returning recently from [facility]. Patient has upcoming appointmen t with pulmonolog y in a few weeks. In the meantime, patient's Proventil is refilled. 09/22/21 Stable at this time. Continue to follow with Dr. Rodriguez with pulmonolog y Body mass index 30+ - obesity 340116782 Z68.30 09/22/21 continue to work on weight reduction Advance care planning 71 9628741 Z71.89 has plan/dnr Epigastric pain 36311639 R10.13 02/02/2022 : New onset. Patient notes that she is experience d this for over 20 years . No associatio n with food or lying down. This can be seen in the clinic setting of esophageal spasm. Stop famotidine . Follow-up in 28 days. [id number] Rajiv Red MD OFFICE [address] [facility] [address] [place] [address] 02/17/2022 15:21:41 02/17/2022 15:52:45 Disorder of vitamin B12 480314299 E53.8 05/28/21 continue supplement ation Patient continue with B12 injections . She is doing well at this time. Continue with the regimen. [id number] LIAM CARBALLO OFFICE [address] [facility] [address] [place] [address] 03/02/2022 11:08:37 03/02/2022 12:15:43 Essential hypertension 73849882 I10 03/02/2022 : Well-contr olled stable. At goal. Continue current medication regimen. Maintain low-sodium diet. 02/02/2022 : Stable. Controlled . Asymptomat ic. Continue current medication regimen. 01/01/2022 : Asymptomat ic. Stable. Controlled . Continue current medication regimen. Maintain low-sodium diet. 09/22/21 Continue current antihypert ensive medication regimen Multiple n odules of lung 239584876 R91.8 02/02/2022 : Recently seen by pulmonolog [...] CTs annually. Disorder o f lipid metabolism 796572797 E78.9 02/02/2022 : Remains asymptomat ic. Lipid panel reviewed. Well-contr olled at goal. Continue current medication regimen. 01/01/2022 : Asymptomat ic. No red flag symptoms. Continue current regimen. Recheck lipid panel. 09/22/21 Not currently on statin therapy. Continue to control with diet and exercise Chronic ki dney disease stage 3 584027462 N18.31 03/02/2022 : CMP reviewed. EGFR 57. [...] interval labs Chronic ob structive pulmonary disease 39106873 J44.9 03/02/2022 : All stable at today's visit. No recent acute exacerbati on. Followed by pulmonolog y. 02/02/2022 : Stable. Recently seen by pulmonolog y. No changes. Doing well overall. Follow-up with pulmonolog y as scheduled, will follow along. 01/01/2022 : Mildly worsening dyspnea on exertion since returning recently from [facility]. Patient has upcoming appointmen t with pulmonolog y in a few weeks. In the meantime, patient's Proventil is refilled. 09/22/21 Stable at this time. Continue to follow with Dr. Rodriguez with pulmonolog y Body mass index 30+ - obesity 398752703 Z68.30 03/02/2022 : Patient will benefit by eating more fruits and vegetables , fish and poultry; while strictly limiting intake of carbohydra starr, fried foods, fatty foods, sugary foods, and red meats. Patient will benefit from exercise for a minimum of 30 minutes/da y, for at least 3 days/week. 09/22/21 continue to work on weight reduction Advance care planning 71 7216184 Z71.89 has plan/dnr Epigastric pain 05810947 R10.13 03/02/2022 : Resolved with famotidine . Continue current medication regimen. Avoid triggers. 02/02/2022 : New onset. Patient notes that she is experience d this for over 20 years . No associatio n with food or lying down. This can be seen in the clinic setting of esophageal spasm. Stop famotidine . Follow-up in 28 days. Disorder o f vitamin B12 980292135 E53.8 Venous varices 048934675 I83.92 03/02/2022 : Patient recently seen by [...] surgery at this time. Cyst of kidney 208792937 N28.1 Osteoarthr itis of left knee joint 7415183258 92968 M17.12 03/02/2022 : Patient reports longstandi ng bilateral knee pain. He asks about hyaluronic acid injections . Long discussion about the types of osteoarthr itis and the grading. We will get radiologic al imaging to make further assessment recommenda tions. Osteoarthr itis of right knee joint 0159347891 49880 M17.11 03/02/2022 : Patient reports longstandi ng bilateral knee pain. He asks about hyaluronic acid injections . Long discussion about the types of osteoarthr itis and the grading. We will get radiologic al imaging to make further assessment recommenda tions. [id number] Raijv Red MD OFFICE [address] [facility] [address] [place] [address] 03/22/2022 13:32:44 03/22/2022 13:50:48 Serum vitamin B12 below reference range 117308965 R79.89 [id number] SANJEEV BILL OFFICE [address] [facility] [address] [place], [place] [phone] 05/27/2022 14:28:42 05/27/2022 15:25:27 Chronic obstructive pulmonary disease 24482827 J44.9 05/27/22 stable inhalers good result dr rodriguez follows ct pulm no issues utd 05/28/21 Stable at this time. Continue to follow with Dr. Rodriguez with pulmonolog y Essential hypertension 71712360 I10 05/27/22 weight down several pounds bp good 05/28/21 Blood pressure stable today with a reading of 128/70. Disorder o f vitamin B12 638275097 E53.8 05/27/22 today b12 05/28/21 continue supplement ation Patient continue with B12 injections . She is doing well at this time. Continue with the regimen. Venous varices 162186338 I83.92 05/27/22 stable no issues 05/28/21 Continues to follow with Dr. Melo for monitoring 03/02/21 saw vascular surgery on 01/12/2021 for venous varices they recommende d conservati ve therapy at this time. Patient will keep legs elevated and wear compressio n stockings at this time. She will continue to follow with vascular surgery at this time. Body mass index 30+ - obesity 183282010 Z68.30 05/28/21 continue to work on weight reduction Cyst of kidney 458810478 N28.1 05/27/22 leeroy appt pending per patient 05/28/21 continues to follow with Dr. Feliz from urology who monitors it. She also informs me that she has an appointmen t coming up with him at the beginning of June. Disorder o f lipid metabolism 198831529 E78.9 05/27/22 labs noted young 87 05/28/21 Not currently on statin therapy. Continue to control with diet and exercise Chronic ki dney disease stage 3 586623753 N18.31 05/27/22 stable gfr good 05/28/21 stable. continue to monitor with interval labs Multiple n odules of lung 679767693 R91.8 05/27/22 pulm 05/28/21 continue to follow with Dr. Rodriguez with pulmonolog y for monitoring 03/02/21 saw pulmonolog y on 01/26/2021 . Patient has a history of lung nodules and recent chest CT showed no changes to the nodules at this time. She will continue to follow with pulmonolog y and will continue to have chest CTs annually. Advance care planning 71 0756171 Z71.89 has plan/dnr Epigastric pain 10828909 R10.13 05/27/22 02/02/2022 : New onset. Patient notes that she is experience d this for over 20 years . No associatio n with food or lying down. This can be seen in the clinic setting of esophageal spasm. Stop famotidine . Follow-up in 28 days. Osteoarthr itis of left knee joint 3066857782 29381 M17.12 3/16/23 nsaid ortho 03/02/2022 : Patient reports longstandi ng bilateral knee pain. He asks about hyaluronic acid injections . Long discussion about the types of osteoarthr itis and the grading. We will get radiologic al imaging to make further assessment recommenda tions. Osteoarthr itis of right knee joint 9900132394 27820 M17.11 05/27/22 ortho 03/02/2022 : Patient reports longstandi ng bilateral knee pain. He asks about hyaluronic acid injections . Long discussion about the types of osteoarthr itis and the grading. We will get radiologic al imaging to make further assessment recommenda tions. Serum vijaya min B12 below reference range 828842662 R79.89 lot 2270 exp 10/2023 right deltoid , clinic provide , 05/27/2022 mm 3:23PM [facility] [id number] Rajiv Red MD OFFICE [address] [facility] [address] [place] [address] 06/10/2022 13:21:04 06/10/2022 14:55:04 Chronic obstructive pulmonary disease 03131527 J44.9 06/10/22 05/27/22 stable inhalers good result dr rodriguez follows ct pulm no issues utd 05/28/21 Stable at this time. Continue to follow with Dr. Rodriguez with pulmonolog y Essential hypertension 26678324 I10 06/10/22 05/27/22 weight down several pounds bp good 05/28/21 Blood pressure stable today with a reading of 128/70. Disorder o f vitamin B12 722319247 E53.8 06/10/22 05/27/22 today b12 05/28/21 continue supplement ation Patient continue with B12 injections . She is doing well at this time. Continue with the regimen. Venous varices 708359453 I83.92 05/27/22 stable no issues 05/28/21 Continues to follow with Dr. Melo for monitoring 03/02/21 saw vascular surgery on 01/12/2021 for venous varices they recommende d conservati ve therapy at this time. Patient will keep legs elevated and wear compressio n stockings at this time. She will continue to follow with vascular surgery at this time. Body mass index 30+ - obesity 685912320 Z68.30 06/10/22 05/28/21 continue to work on weight reduction Cyst of kidney 799232912 N28.1 06/10/22 05/27/22 leeroy appt pending per patient 05/28/21 continues to follow with Dr. Feliz from urology who monitors it. She also informs me that she has an appointmen t coming up with him at the beginning of June. Disorder o f lipid metabolism 532896661 E78.9 06/10/22 05/27/22 labs noted young 87 05/28/21 Not currently on statin therapy. Continue to control with diet and exercise Chronic ki dney disease stage 3 553887448 N18.31 06/10/22 05/27/22 stable gfr good 05/28/21 stable. continue to monitor with interval labs Multiple n odules of lung 975533637 R91.8 06/10/22 05/27/22 pulm 05/28/21 continue to follow with Dr. Rodriguez with pulmonolog y for monitoring 03/02/21 saw pulmonolog y on 01/26/2021 . Patient has a history of lung nodules and recent chest CT showed no changes to the nodules at this time. She will continue to follow with pulmonolog y and will continue to have chest CTs annually. Advance care planning 71 3274739 Z71.89 has plan/dnr Epigastric pain 35464388 R10.13 06/10/22 02/02/2022 : New onset. Patient notes that she is experience d this for over 20 years . No associatio n with food or lying down. This can be seen in the clinic setting of esophageal spasm. Stop famotidine . Follow-up in 28 days. Osteoarthr itis of left knee joint 0152624371 72609 M17.12 06/10/22 05/27/22 nsaid ortho 03/02/2022 : Patient reports longstandi ng bilateral knee pain. He asks about hyaluronic acid injections . Long discussion about the types of osteoarthr itis and the grading. We will get radiologic al imaging to make further assessment recommenda tions. Osteoarthr itis of right knee joint 4602785519 79454 M17.11 06/10/22 05/27/22 ortho 03/02/2022 : Patient reports longstandi ng bilateral knee pain. He asks about hyaluronic acid injections . Long discussion about the types of osteoarthr itis and the grading. We will get radiologic al imaging to make further assessment recommenda tions. Serum vijaya min B12 below reference range 500975304 R79.89 lot 2270 exp 10/2023 right deltoid , clinic provide , 05/27/2022 mm 3:23PM [employer] [facility] Diabetes m ellitus screening 194039670 Z13.1 Geriatric screening status 530136889 Z13.9 Pneumonia 738486577 J18. 9 Acute hypo xemic respiratory failure 202405825 J96.01 [id number] Rajiv Red MD OFFICE [address] [facility] [address] [place] [address] 06/25/2022 10:24:27 06/25/2022 10:35:31 Disorder of vitamin B12 880903688 E53.8 06/25/22 06/10/22 05/27/22 today b12 05/28/21 [...] [employer] (MEDICARE REPLACEMENT/A DVANTAGE - PPO) Gilda Scheehser [id number] Gilda Scheehser 03/22/2022 1 [facility] (MEDICARE REPLACEMENT/A DVANTAGE - HMO) [id number] Gilda Scheehser [id number] Gilda Scheehser 05/27/2022 1 [facility] (MEDICARE REPLACEMENT/A DVANTAGE - PPO) [id number] Agar A Scheehser [id number] Agar Scheehser 06/10/2022 1 [facility] (MEDICARE REPLACEMENT/A DVANTAGE - PPO) [id number] Agar A Scheehser [id number] Gilda Scheehser 06/25/2022 1 [facility] (MEDICARE REPLACEMENT/A DVANTAGE - PPO) [id number] Agar A Scheehser [id number] Gilda Scheehser Notes Date Note Type Note [...] are stable for the patient. LIAM CARBALLO [address] [facility] [address], [place], [address], [facility] - [facility], [facility] 03/02/2022 12:39:07 3 text/html here for annualsees dr hanna for lungs no sx on triple therapy---neb machine at [facility] cp no cough no sobmamm yearlyon meds for RA on hydroxychlorquine dr goldman rheummadeline abd pain SANJEEV BILL [place], [place] - [facility], [facility] 07/29/2022 09:33:51 3 text/html discharge 06/09/22admitted for exacerbation of copd with then pneumonia bilateral hypoxiarecords notedlabs okno cp some sob today not newon prednisone taper dc doxy cefdinirhere with daughter from [facility]/ with dr hanna on meds for RA on hydroxychlorquine [place] [address] [facility] [address] [place], [address], [facility], [facility] 06/10/2022 15:47:31 3 text/html discharge 06/09/22admitted for exacerbation of copd with then pneumonia bilateral hypoxiarecords notedlabs okno cp some sob today not newon prednisone taper dc doxy cefdinirhere with daughter from [facility]/ with dr hanna on meds for RA on hydroxychlorquine dr [place] [id number] [facility] [address] [place], [address], [facility], [facility] 06/25/2022 12:47:18 OBGyn Episode No OBEpisode recorded.
--- OUTSIDE RECORDS SUMMARY | 2024-05-17 19:20 | XMS_ITS ---
Author Organization [facility] Address [address] [place] [address] Care Team Providers Care Log Yard Manager Name Role Phone Hernandez CERVANTES, [place] Primary Care Provider Allergies Allergen (clinical drug ingredient) Drug/Non Drug Allergy documented on EMR Reaction Allergy Type Onset Date Status Latex Latex Unknown Allergy 03/02/2022 Active Substance with sulfonamide structure and antibacterial mechanism of action (substance) Sulfa Antibiotics Unknown Drug Allergy Active Results Component Value Reference Range Notes Comprehensive Metabolic Pane l 14 (CMP) Reviewed date:04/28/2024 01:46:25 PM Interpretation: Performing Lab:[facility] [place], [address] [place] [id number], Phone - [phone], Director - Shalom Notes/Report: Glucose 67 70-99 [...] Ratio Reviewed date:04/28/2024 01:46:25 PM Interpretation: Performing Lab:[email or web address] [place], [address] [place] [id number], Phone - [phone], Director - Shalom Notes/Report: Cholesterol, Total 125 100-199 mg/dL Triglycerides 92 0-149 mg/dL HDL Cholesterol 52 >39 mg/dL VLDL Cholesterol Ayo 17 5-40 mg/dL LDL Chol Calc ([facility]) 56 0-99 mg/dL T. Chol/HDL Ratio 2.4 0.0-4.4 ratio T. Chol/HDL Ratio Men Women 1/2 Avg.Risk 3.4 3.3 Avg.Risk 5.0 4.4 2X Avg.Risk 9.6 7.1 3X Avg.Risk 23.4 11.0 Complete Blood Count with Di fferential/Platelet (CBC) Reviewed date:04/28/2024 01:46:24 PM Interpretation: Performing Lab:[email or web address] [place], [address] [place] [id number], Phone - [phone], Director - MDNoey Notes/Report: WBC 6.9 3.4-10.8 [...] daily Active Vitamin D (Ergocalciferol) 1.25 MG (45247 UT) 1 capsule Orally weekly for 90 [...] Active Encounters Encounter Location Date Provider Diagnosis [facility] [address] [place], [place] [id number] 04/05/2024 Paulo Ng Chronic obstructive pulmonary disease, [...] obstructive pulmonary disease, unspecified (ICD-10 - J44.9) [facility]-[id number]- Continue to follow with Radio Division Captain. 02/27 weaning down on predisone right now doing 04/05/2024 Essential (primary) hypertension (ICD-10 - I10) [facility]-[id number]- Continue medications and home monitoring as directed. [...] y disease, unspecified Continue to follow with Radio Division Captain. 02/27 weaning down on predisone right now [...] Provider Name:Paulo Ng , 06/22/2024 02:40:00 PM, [address] [facility] [address], [place], [place], [phone], Progress Notes * Gilda CHAN ADOB:1935 (88 yo F)Acc No.[id number]:04/05/2024 Patient:?Gilda CHAN Provider:?Paulo Ng MD :1935???Age:88 Y???Sex:Female D ate:04/05/2024 Address:[address] [place], [place] [id number] Subjective: * Chief Complaints: * ???4 wk f/uThis is a [facility]/Telemedicine visit conducted using synchronous audio . 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 Plan: * [...] (CMP) * Procedure Codes:?1159F Medic ation list [id number] Medication Review * Preventive Medicine:? ??Handouts :?Patient Handouts:?THE FOLLOWING HANDOUTS WERE PROVIDED:?Visit summary ?THE ABOVE HANDOUTS WERE PROVIDED BY:?Farzad Gaona 04/05/2024 08:29:28 AM EST >.?HANDOUTS REVIEWED WITH:?patient.?METHOD USED TO DEMONSTRATE UNDERSTANDING: ?verbalized understanding.?UNDERSTANDING OF HANDOUT WAS DEMONSTRATED?Farzad Gaona 04/05/2024 08:29:33 AM EST >.? * Follow Up:?prn * * UTER SUPPORT TECHNICIAN Sign off status: Completed true * Provider:?Paulo Ng MD Date:?04/05 Generated for Phani elkins/Marcus/eTransmitting on:?05/17/2024 06:19 PM COMPUTER SUPPORT TECHNICIAN History and Physical Notes * Examination Category Sub-Category Detail Notes General Examination Psych: does not dawson ear depressed, normal affect.
--- OUTSIDE RECORDS SUMMARY | 2024-05-17 19:21 | XMS_ITS ---
Author Organization [facility] Address [address] [place] [address] Care Team Providers Care Slip Sheeter Name Role Phone Hernandez CERVANTES, Paulo Primary Care Provider [phone] REASON FOR VISIT Refill Medications Medication SIG (Take, Route, Frequency, Duration) Notes Start Date End Date Status Albuterol Sulfate HFA 108 (90 Base) MCG/ACT 1 puff as needed Inhalation every 4 hrs for 90 days 01/09/2024 Active Encounters Encounter Location Date Provider Diagnosis [facility] [address] [place], [place] [id number] 03/19/2024 Paulo Ng Chronic obstructive pulmonary disease, unspecified J44.9 Assessments Encounter Date Diagnosis (ICD Code) Assessment Notes Treat ment Notes Treatment Clinical Notes 03/19/2024 Chronic obstructive pulmonary disease, unspecified (ICD-10 - J44.9) [facility]-[id number] Plan Of Treatment Medication Medication Name Sig Start Date Stop Date Notes Albuterol Sulfate HFA 108 (9 0 Base) MCG/ACT 1 puff as needed Inhalation every 4 hrs for 90 days 01/09/2024 Next Appt Details Provider Name:Paulo Ng , 06/22/2024 02:40:00 PM, [address], [place], [place], [phone], Progress Notes * Gilda CHAN ADOB:1935 (88 yo F)Acc No.[id number]:03/19/2024 Patient:?Gilda CHAN :1935???Age:88 Y???Sex:Female Address:[address] [place] [phone] * Refills? Refill Albuterol Sulfate HFA Aerosol Solution, 108 (90 Base) MCG/ACT, Inhalation, 4, 1 puff as needed, every 4 hrs, 90 days * true * Date:? Generated for Phani elkins/Marcus/eTransmitting on:?05/17/2024 06:20 PM TRANSFORMER MECHANIC
--- OUTSIDE RECORDS SUMMARY | 2024-05-17 19:23 | XMS_ITS | Data Portability ---
Author Organization [facility] Cardeeo [facility] ician [employer], [facility], [facility] Address [address] [place] [address] Care Team Providers Care Sap Portal Developer Name Role Phone EVGENY RODRIGUEZ Primary Care Provider [phone] EVGENY RODRIGUEZ Referring Provider EVGENY RODRIGUEZ Telephone Operator RAJIV CARDONA Primary Care Provider Assessment No assessment recorded. Plan of Treatment Reminders Order Date Submit Date Provider Last Modified By Organization Details Last Modified Time Details Appointments None record ed. Lab None record ed. Referral pulmon ologis t referr al 2023 024 marco [facility], [address] [facility] [address], [place], [address], 4 16:11:05 Procedures pulmon venu stress test, simple (PROC) 2021 022 [email or web address] In-House Test, For Internal Use Only, Do Not Delete/merge, [id number] 2 11:54:35 Surgeries None record ed. Imaging XR, chest, 2 view 2023 024 [facility], [facility], All Locations, [place], [address], 4 19:53:31 CT, chest, w/o contra st [address] [facility] Radiology [facility] [address], [address], [place], [address], 4 15:17:30 CT, chest, w/o contra st - PLEASE CALL RAMY Leonardo TO [place] [facility]NOR APPT THANK YOU 2021 023 [facility], [facility], All Locations, [place], [address], 4 10:49:10 US, echoca rdiogr am 2021 022 [facility], [facility], All Locations, [place], [address], 18:14:33 Medication Orders torsem tea 10 mg tablet 2023 024 [facility], [address], [place], [address], 13:10:13 Patient TargetsNo targets recorded. Patient Instructions Encounter Date Encounter Id Patient Instructions Last Modified By Organization Details Last Modified Time 01/26/2022 [id number] complete PFT w/ post bronchodilator spirometry* JONNATHAN Not available 01/31/2023 08:01:25 Patient understands instructions and will seek medical attention if symptoms worsen as directed. latoya Not available 01/21/2022 16:11:09 06/18/2022 [id number] Patient understands instructions and will seek medical attention if symptoms worsen as directed. [email or web address] Not available 06/10/2022 13:09:06 02/07/2023 [id number] Patient understands instructions and will seek medical attention if symptoms worsen as directed. [email or web address] Not available 02/02/2023 09:01:25 07/08/2023 [id number] pneumonia: care instructions tchadha Not available 07/08/2023 13:10:13 Patient understands instructions and will seek medical attention if symptoms worsen as directed. [email or web address] Not available 07/06/2023 10:35:56 07/19/2023 [id number] Patient understands instructions and will seek medical attention if symptoms worsen as directed. [email or web address] Not available 07/13/2023 10:35:20 Reason for Referral Telephone Operator Referral for C hronic obstructive pulmonary disease Referring Physician: Evgeny Rodriguez, Internal Medicine, Encounter Date: 07/08/2023 Results Created Date Observation Date Name Description Value Unit Range Abnormal Flag Note LastModifiedBy Organization Detail LastModifiedTime 01/27/20 22 01/26/2022 pulmo nary stres s [...] Use Only, Do Not Delete/merge, 01/26/2022 11:02:55 11/01/26/2022 pulmo nary stres s test, simpl e [...] Use Only, Do Not Delete/merge, 01/26/2022 11:02:55 01/06/2001/05/2022 ar metry testi ng* No observ ation record ed. [email or web address] In-House Test For Internal Use Only, Do Not Delete/merge, [id number] 01/14/2022 10:05:52 01/15/2001/14/2022 CT, chest , w/o contr ast INDICA TION: J44.9 Chroni c obstru ctive pulmon venu diseas e, unspec ified. TECHNI QUE: CT CHEST WITHOU T CONTRA ST Multip lanar reform ats were obtain ed. Radiat ion dose optimi zation techni que was utiliz ed. COMPAR IRCH: er 2020 FINDIN GS: Soft tissue detail is [...] 3. Electr onical ly Signed By: Gareth Segovia, Homero willson Sign Date: [id number] [facility] All Locations, [place], [address], 02/03/2024 19:42:38 01/26/20 22 01/19/2022 compl ete PFT w/ post [facility] hodil ator ar metry * No observ ation record ed. tchadha Not Available 2021 08:31:12 02/08/20 22 02/03/2022 , echo ardio gram No observ ation record ed. [id number] [facility] All Locations, [place], [address], 02/03/2024 20:31:07 01/22/20 23 01/18/2023 CT, chest , w/o contr ast CT CHEST WITHOU T CONTRA ST TECHNI QUE: CT was perfor med throug h the chest withou t the intrav enous admini strati on of an iodina ivonne contra st agent. Axial CT images and multip lanar reform ations were recons milana tarango Techni cristina factor s are evalua ivonne [...] Signed By: Rolo Walter Sign Date: [id number] [facility] All Locations, [place], [address], 02/03/2024 19:39:04 02/01/20 23 01/25/2023 compl ete PFT w/ post [facility] hodil ator ar metry * No observ ation record ed. [email or web address] In-House Test For Internal Use Only, Do Not Delete/merge, [id number] 01/31/2023 09:53:43 06/01/19 24 05/24/2023 CT, chest [...] Note: The [employer], [facility] and the [place] preven tative servic es task force now approv e CT low-do se chest screen ing in the follow ing patien ts: - Age 55-77 who curren tly smoke or who have quit within the last 15 years - Asympt omatic patien ts with a 30-pac k-year histor y of smokin g Electr onical ly Signed By: Kale zafar D.O., Board Certif ied Radiol ogist Sign Date: tcsumma healthzita [facility] All Locations, [place], [address], 07/18/2023 20:53:53 Result Notes None recorded. Problems Name Problem SNOMED Code Status Onset Date Resolution Date Notes Provider Name and Address Organization Details Recorded Time Pulmonar y hyperten sarai 68087550 Completed 201707/19/2023 Arnold Paulino Jr [facility], [facility] 4 12:50:37 Rheumato id arthriti s 26244778 Active 2021 ON PREDNISO NE...... [facility] 3 13:08:06 Venous varices 712039371 Completed 201707/19/2023 [facility] 4 12:50:37 Serum creatini ne above referenc e range 117152193 Completed 201807/19/2023 Arnold Paulino Jr [facility], [facility] 4 12:50:37 Steatosi s of liver 259393922 Completed 202007/19/2023 Arnold Paulino Jr [facility], [facility] 4 12:50:37 Pneumoni a 390895363 Completed 07/19/2023 Arnold Paulino Jr [facility], [facility] 4 12:50:37 Disorder of bone and articula r cartilag e 881605243 Completed 07/19/2023 Arnold Paulino Jr [facility], [facility] 4 12:50:37 Dyspnea 785112892 Completed 07/19/2023 [facility] 4 12:50:37 Disorder of lipid metaboli sm 122097526 Completed 07/19/2023 [facility], [facility] 4 12:50:37 Orthosta tic hypotens ion 02620691 Completed 201707/19/2023 Arnold quintanilla, [facility], [facility] 4 12:50:37 Osteopen ia 266533149 Completed 07/19/2023 Arnold Paulino Jr null, [facility], [facility] 4 12:50:37 Vitamin D deficien cy 08551868 Completed 07/19/2023 Arnodl Paulino Jr null, [facility], [facility] 4 12:50:37 Elevated blood-pr essure reading without diagnosi s of hyperten sarai 069247723 Completed 201607/19/2023 Arnold Paulino Jr null, [facility], [facility] 4 12:50:37 Disorder of vitamin B12 315344134 Completed 201507/19/2023 Arnold quintanilla, [facility] Phys[facility], [facility] 4 12:50:37 Lighthea dedness 411529596 Completed 07/19/2023 Arnold Paulino Jr null, [facility] Phys[facility], [facility] 4 12:50:37 Vertigo 212456279 Completed 201707/19/2023 Arnold Paulino Jr null, [facility], [facility] 4 12:50:37 Dizzines s 718852048 Completed 201707/19/2023 Arnold Paulino Jr null, [facility], [facility] 4 12:50:37 Foot pain 46553432 Completed 07/19/2023 Arnold Paulino Jr null, [facility], [facility] 4 12:50:37 Hip pain 19329471 Completed 07/19/2023 Arnold Paulino Jr null, [facility], [facility] 4 12:50:37 Cough 93473304 Completed 201707/19/2023 Arnold Paulino Jr null, [facility], [facility] 4 12:50:37 Essentia l hyperten sarai 89796868 Completed 201607/19/2023 Arnold Paulino Jr null, [facility], [facility] 4 12:50:37 Supraven tricular tachycar jad 8616187 Completed 201807/19/2023 Arnold Paulino Jr null, [facility], [facility] 4 12:50:37 Cyst of kidney 974876558 Completed 201907/19/2023 Arnold Paulino Jr null, [facility], [facility] 4 12:50:37 COVID-19 691095951 Completed 202007/19/2023 Arnold Paulino Jr null, [facility], [facility] 4 12:50:37 Leukopen ia 75951057 Completed 201807/19/2023 Arnold Paulino Jr null, [facility], [facility] 4 12:50:37 Tobacco dependen ce syndrome 98013076 Completed 07/19/2023 Arnold Paulino Jr null, [facility], [facility] 4 12:50:37 Diffuse intersti tial pulmonar y fibrosis 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 CTC 06/04.... .?? RA?..... ..DLCO NORMAL.. 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 898393294 Completed 01/26/2020 Evgeny Rodriguez MD [address], [place], [address], [facility] Physician [facility], [facility] 0 18:02:26 Urinary tract infectio us disease 51520464 Completed 01/09/2020 Evgeny Rodriguez MD [address], [place], [address], [facility], [facility] 0 07:09:26 Hyperten sive disorder 42488926 Completed 01/26/2020 Evgeny Rodriguez MD [address], [place], [address], [facility], [facility] 2 10:17:02 Multiple nodules of lung 949010015 Completed 201507/19/2023 Arnold Paulino Jr [facility], [facility], [facility] 4 12:50:37 Gastroes ophageal reflux disease 636654708 Completed 01/26/2020 Evgeny Rodriguez MD [address], [place], [address], [facility], [facility] 0 18:02:04 Patient encounte r status 822101834 Completed 01/09/2020 Evgeny Rodriguez MD [address], [place], [address], [facility], [facility] 0 07:07:40 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 Active ON B12 SHOTS: CARDONA Arnold quintanilla, [facility], [facility] 3 13:08:04 Allergic rhinitis 36184794 Active Arnold quintanilla, [facility], [facility] 3 13:08:06 [place] e 016365366 Active SEEN ON CTC Arnold quintanilla, [facility], [facility] 3 13:08:04 Syncope 695739344 Completed 201707/19/2023 Arnold quintanilla, [facility] 4 12:50:37 Gastro-e sophagea l reflux disease with esophagi tis 281289371 Active 2019 Arnold Jefferson Jr [facility], [facility] 3 13:08:04 Essentia l hyperten sarai 83429472 Completed 201901/26/2021 Arnold aPulino Jr [facility], [facility] 4 12:50:37 Chronic obstruct [place] pulmonar y disease 57416279 Active 2019 MODERATE ........ 54%..... ...20 pk yrs...QU IT 1976 Evgeny Rodriguez MD [address] [address], [place], [address], [facility], [facility] 2 10:17:03 Hyperten sive disorder 33286498 Active 2020 Arnold Paulino Jr [facility], [facility] 3 13:08:05 Notes:Some problems listed i n Documents: #[id number], #[id number] could not be added to this patient's chart. Please review these documents and add these problems to the patient's chart manually as needed. Problem Notes None recorded. Procedures Surgical History Date Name Laterality Status Provider Name and Address Organization Details Recorded Time 05/08/19 25 G2211 cancelled Arnold Paulino Jr [facility], [facility] 04/04/2024 11:53:18 07/19/19 24 G2211 completed Arnold Paulino Jr [facility] 07/13/2023 10:35:16 07/05/19 24 G2211 cancelled Arnold Paulino Jr [facility] 06/29/2023 10:29:47 03/14/19 20 bone density scan completed Richard Hunt [facility], [facility] 02/18/2020 15:27:11 12/13/19 19 mammography completed Richard Hunt [facility], [facility] 02/18/2020 15:26:54 03/14/19 03 Colonoscopy completed Richard Hunt [facility], [facility] 02/18/2020 15:26:38 Imaging Results Imaging Date Name Status LastModified by Organization Details LastModified Time 01/05/2022 spirometry testing* completed [email or web address] In-House Test For Internal Use Only, Do Not Delete/merge, [id number] 01/14/2022 10:05:52 01/14/2022 CT, chest, w/o contrast completed [id number] [facility] All Locations, [place], [address], 02/03/2024 19:42:38 01/19/2022 complete PFT w/ post bronchodilator spirometry* completed Information not available 01/25/2022 08:31:12 02/03/2022 US, echocardiogram completed [id number] [facility] All Locations, [place], [address], 02/03/2024 20:31:07 01/18/2023 CT, chest, w/o contrast completed [id number] [facility] All Locations, [place], [address], 02/03/2024 19:39:04 01/25/2023 complete PFT w/ post bronchodilator spirometry* completed [email or web address] In-House Test For Internal Use Only, Do Not Delete/merge, [id number] 01/31/2023 09:53:43 05/24/2023 CT, chest, w/o contrast completed Information not available 06/01/2023 12:13:15 07/18/2023 XR, chest, 2 view completed tchadha [facility] All Locations, [place], [address], 07/18/2023 20:53:53 Procedure Notes None recorded. Medical Equipment None Reported. Allergies Allergen ID Allergen Name Allergen Category Reaction Reaction Severity Criticality Documentation Date Start Date Code Code System Note Provider Name and Address Organization Details Recorded Time 2303362 latex environme nt,medica tion hives Not available Not available 06/10/2022 64594 91 RxNorm [facility], [facility] 13:07:48 871839 Substance with sulfonami de structure and antibacte rial mechanism of action (substanc e) medicatio n Not available Not available Not available 02/14/2020 20322 8003 SNOMED Marsha quintanilla [place] - [facility], [facility] 0 07:25:44 Medications Name Sig Start Date [...] Available Not Available Not Available Fluad Quad 3102-5361(6 5yr up)(PF) 60 mcg (15 mcg x [...] Updated DateTime 2 152.4 cm 29.5 kg/m2 91531.4 5 g 0 97.6 [degF] 71 /min 93 % 93 % 154 mm[Hg] 75 mm[Hg] 150 mm[Hg] 76 mm[Hg] Karmen Oropeza [facility], [employer] 2 11:05:44 Date Recorded Body height Body mass index (BMI) Body weight Pain severity - 0-10 verbal numeric rating [Score] - Reported Body temperature Heart rate Oxygen saturation Oxygen saturation in Arterial blood by Pulse oximetry Systolic blood pressure Diastolic blood pressure Systolic blood pressure Diastolic blood pressure Provider Name and Address Organization Details Last Updated DateTime 3 152.4 cm 29.3 kg/m2 98222.8 6 g 0 98.1 [degF] 89 /min 93 % 93 % 162 mm[Hg] 69 mm[Hg] 138 mm[Hg] 74 mm[Hg] Naa Linares [facility], [facility] 3 13:42:10 Date Recorded Body height Body mass index (BMI) Body weight Body temperature Pain severity - 0-10 verbal numeric rating [Score] - Reported Oxygen saturation Oxygen saturation in Arterial blood by Pulse oximetry Heart rate Systolic blood pressure Diastolic blood pressure Systolic blood pressure Diastolic blood pressure Provider Name and Address Organization Details Last Updated DateTime 3 152.4 cm 27 kg/m2 82251.7 5 g 97.9 [degF] 0 94 % 94 % 69 /min 150 mm[Hg] 68 mm[Hg] 135 mm[Hg] 69 mm[Hg] Richard Hunt [facility] 3 11:37:50 Date Recorded Body height Body mass index (BMI) Body weight Pain severity - 0-10 verbal numeric rating [Score] - Reported Oxygen saturation Oxygen saturation in Arterial blood by Pulse oximetry Heart rate Body temperature Systolic blood pressure Diastolic blood pressure Provider Name and Address Organization Details Last Updated DateTime 4 152.4 cm 29.5 kg/m2 66941.4 5 g 0 96 % 96 % 81 /min 97.8 [degF] 137 mm[Hg] 70 mm[Hg] Richard Hunt [facility] 4 12:16:41 Date Recorded Body height Body mass index (BMI) Body weight Pain severity - 0-10 verbal numeric rating [Score] - Reported Oxygen saturation Oxygen saturation in Arterial blood by Pulse oximetry Heart rate Body temperature Systolic blood pressure Diastolic blood pressure Provider Name and Address Organization Details Last Updated DateTime 4 152.4 cm 28.7 kg/m2 74779.0 8 g 0 95 % 95 % 87 /min 97.8 [degF] 122 mm[Hg] 65 mm[Hg] Richard Hunt [facility] 4 12:37:48 Social History Question Answer Notes LastModified by Organizat ion Details LastModified Time Tobacco Smoking Status Former Smoker [facility] 02/18/2020 15:25:33 Do You Have An Advance Directive? No Information not available 01/26/2021 Is Your Home Air Conditioned? Yes [email or web address] Information not available 02/07/2023 What Is Your Level Of Alcohol Consumption? Occasional [email or web address] Information not available 02/18/2020 Are You Currently Sexually Active With Anyone Who Has Traveled (within The Last 12 Weeks) To A Zika-affected Area? No [email or web address] Information not available 02/07/2023 Is Blood Transfusion Acceptable In An Emergency? Yes [email or web address] Information not available 07/19/2023 How Much Tobacco Do You Chew? None [email or web address] Information not available 02/18/2020 In The 14 [...] Virus Disease Patient Without Appropriate PPE? No [email or web address] Information not available 02/07/2023 Do You Reside In Or Have You Traveled To An Area Where Ebola Virus Transmission Is Active? No Information not available 02/07/2023 Do You Or Have You Ever Used E-cigarettes Or Vape? Never Used Electronic Cigarettes [email or web address] Information not available 02/18/2020 Do You Have An Electrostatic Air Filter? No [email or web address] Information not available 02/07/2023 Have You Been Exposed To Chemicals Or Toxins? No [email or web address] Information not available 02/07/2023 What Is The Fluoride Status Of Your Home? Unknown [email or web address] Information not available 02/07/2023 When Did You Quit Smoking? 16+yearssindiana lara 1976 Information not available 02/07/2023 Do You Have A Humidifier? No [email or web address] Information not available 02/07/2023 Where Do You Live? SingleLevelHouse [email or web address] Information not available 02/07/2023 Alcohol Use No [email or web address] Informatio n not available 01/26/2021 Do You Smoke? No [email or web address] Informat ion not available 01/26/2021 Year Quit Tobacco Use 1977 [email or web address] Information not available 02/14/2020 Marital Status Informatio n not available 02/07/2023 Do You Have A Medical Power Of Paper Cone Maker? No Information not available 02/07/2023 What Was The Date Of Your Most Recent Tobacco Screening? 07/19/2023 [email or web address] Information not available 07/19/2023 What Is Your Current Pack Years? 30ormorepackyears Information no t available 02/07/2023 Have You Ever Been Counseled For Unhealthy Alcohol Use? No Information not available 02/07/2023 What Is Your Relationship Status? [email or web address] Information not available 01/26/2021 Do You Use Your Seat Belt Or Car Seat Routinely? Yes Information not available 02/07/2023 At What Age Did You Start Smoking Tobacco? 21 Information not available 01/26/2021 Do You Or Have You Ever Used Smokeless Tobacco? Never Used Smokeless Tobacco [email or web address] Information not available 02/18/2020 Are There Any Smokers In Your House? No [email or web address] Information not available 02/07/2023 How Much Tobacco Do You Smoke? 1 PPD [email or web address] Information not available 02/18/2020 Do You Use Any Illicit Or Recreational Drugs? No Information not available 02/07/2023 On What Date Was Tobacco Cessation Counseling Provided? 07/19/2023 [email or web address] Information not available 07/19/2023 How Many Years Have You Smoked Tobacco? 20 Information not available 01/26/2021 Do You Or Have You Ever Used Any Other Forms Of Tobacco Or Nicotine? No Information not available 02/07/2023 Sex: Female Functional Status Question Answer Note LastModified by Organizat ion Details LastModified Time Do you have transportation difficulties? No [email or web address] Information not available 02/07/2023 Are you able to care for yourself? Yes Information not available 02/07/2023 What is your exercise level? None Information not available 01/26/2021 Mental Status None recorded. Family History Relationship Description Onset Age of this Age Resolved Age Notes LastModified by Organization Details LastModified Time Mother Malignant tumor of pancreas [email or web address] Not available 07:26:49 Medical History Condition Response Cancer (location) N Gout N Other Y Kidney Stones N Measles/Mumps N Arthralgia N [...] conjugate PCV 13 7 completed Not Available [facility] 04:44:00 pneumococcal polysaccharide PPV23 7 completed Not Available [facility] 02/06/2023 04:44:00 Influenza, split virus, trivalent, preservative 2 completed FRIEDA Helm - [facility], [facility] 06/18/2022 13:54:23 Pneumococcal conjugate PCV 13 5 completed Cindy Oakley null, [facility], [facility] 06/18/2022 13:54:23 Influenza, high-dose, trivalent, PF 4 completed Cindy Edwards null, [facility], [facility] [facility] 06/18/2022 13:54:23 zoster recombinant 0 completed Cindy Oakley null, [facility], [facility] 06/18/2022 13:54:23 Influenza, high-dose, trivalent, PF 7 completed Cindy Oakley null, [facility], [facility] 06/18/2022 13:54:23 influenza, unspecified formulation 8 completed Marsha quintanilla, [facility], [facility] 02/14/2020 07:22:33 Influenza, high-dose, trivalent, PF 5 completed Arnold Paulino Jr null, [facility], [facility] 06/10/2022 13:08:16 Influenza, adjuvanted, quadrivalent, PF 0 completed Cindy Oakley null, [facility], [facility] 06/18/2022 13:54:23 Influenza, split virus, quadrivalent, preservative 9 completed Marsha quintanilla, [facility], [facility] 02/14/2020 07:22:33 zoster live 3 completed Cindy Oakley null, [facility], [facility] 06/18/2022 13:54:23 zoster live 3 completed Marsha Kirkpatrick null, [facility], [facility] 02/14/2020 07:22:33 Tdap 4 completed Marsha Kirkpatrick null, [facility], [facility] 02/14/2020 07:22:33 pneumococcal polysaccharide PPV23 8 completed Marsha quintanilla, [facility], [facility] 02/14/2020 07:22:33 Influenza, split virus, trivalent, preservative 2 completed Marsha quintanilla, [facility], [facility] 02/14/2020 07:22:33 Influenza, split virus, quadrivalent, preservative 6 completed Marsha Kirkpatrick null, [facility], [facility] 02/14/2020 07:22:33 influenza nasal, unspecified formulation 3 completed Marsha Kirkpatrick [facility], [facility] 02/14/2020 07:22:33 Influenza, split virus, quadrivalent, preservative 0 completed Marsha Kirkpatrick [facility], [facility] 02/14/2020 07:22:33 Influenza, high-dose, trivalent, PF 6 completed Cindy Oakley [facility], [facility] 06/18/2022 13:54:23 Novel [id number] 9 completed Cindy Oakley [facility], [facility] 06/18/2022 13:54:23 zoster recombinant 1 completed Cindy [facility], [facility] 06/18/2022 13:54:23 Influenza, adjuvanted, quadrivalent, PF 1 completed Cindyajay Oakley [facility], [facility] 06/18/2022 13:54:23 Influenza, split virus, quadrivalent, preservative 2 completed Not Available [facility] 02/06/2023 04:44:00 Influenza, split virus, quadrivalent, preservative 6 completed Not Available [facility] 02/06/2023 04:44:00 Influenza, split virus, quadrivalent, preservative 0 completed Not Available [facility] 02/06/2023 04:44:00 influenza, unspecified formulation 2 completed Arnold Paulino Jr [facility], [facility] 06/10/2022 13:08:16 Novel [id number]-[id number], all formulations 9 completed Not Available [facility] 02/06/2023 04:44:00 zoster live 3 completed Not Available [facility] 02/06/2023 04:44:00 zoster live 3 completed Not Available [facility] 02/06/2023 04:44:00 Past Encounters Encounter ID Performer Location Encounter Start Date Encounter Closed Date Diagnosis/Indication Diagnosis SNOMED-CT Code Diagnosis ICD10 Code Diagnosis Note [id number] Evgeny Rodriguez MD [facility] [address] [place] [address] 02/18/2020 14:53:05 02/18/2020 15:43:34 Body mass index 30+ - obesity 299025249 E66.9 Z68.30 weight issues discussed and informatio n on weight loss given. Needs follow up on weight control as scheduled. Education handout on diets given. Exercise counseling done. Will arrange referral for dietitian, nutritioni st, Physical/o ccupationa l therapy as needed or desired. Also will consider pharmaceut ical and supplement al interventi ons Obesity 626668185 E66.9 Diet education 14583534 Z71.3 as above Chronic ob structive pulmonary disease 00664637 J44.9 Patient COPD is relatively stable Continue Stiolto and Ventolin Recheck CT chest in 1 year as well as complete PFTs Palpitations 06960705 R0 0.2 Allergic rhinitis 429890 04 J30.9 Advised Trial of Flonase 1 puff each nostril BID. May try OTC Nasacort as well. Use Gagandeep -Med Sinus Rinse (OTC) flushes 4-6 times / day Dyspnea on exertion 6084 5006 R06.09 Essential hypertension 86442308 I10 Multiple n odules of lung 920652061 R91.8 [id number] Evgeny Rodriguez MD [facility] [address] [place] [address] 01/26/2021 09:55:49 01/26/2021 15:12:27 Body mass index 30+ - obesity 776630192 Z68.31 weight issues discussed and informatio n on weight loss given. Needs follow up on weight control as scheduled. Education handout on diets given. Exercise counseling done. Will arrange referral for dietitian, nutritioni st, Physical/o ccupationa l therapy as needed or desired. Also will consider pharmaceut ical and supplement al interventi ons Obesity 409437590 E66.9 see BMI above for details Diet education 68243670 Z71.3 as above Dyspnea on exertion 6084 [...] conditioni ng Chronic ob structive pulmonary disease 37655488 J44.9 chronic {{complain t conditio n disease [...] Ventolin inhaler Multiple n odules of lung 367872687 R91.8 chronic {{complain t conditio n disease [...] on Fleischner Society Guidelines Hypertensive disorder 38 812119 I10 Chronic {{complain t conditio n* disease [...] Follow up as scheduled. Depression screening 171 786324 Z13.89 Patient scored __LOW___DE PRESSION SCREENING: PHQ-9 performed today, additional time spent for staff scoring and provider review for completion of chart. [id number] Evgeny Rodriguez MD [facility] [address] [place] [address] 01/05/2022 09:18:46 01/05/2022 10:28:34 Hypertensive disorder 02043442 I10 Chronic {{complain t conditio n* disease [...] this time Multiple n odules of lung 982711918 R91.8 chronic {{complain t conditio n disease [...] based on Fleischner Society Guidelines Allergic rhinitis 838014 04 J30.9 Chronic {{complain t conditio n [...] exac erbation of chronic obstructive pulmonary disease 470683495 J44.1 Chronic {{complain t conditio n disease [...] No Antibiotic s necessary at this time [id number] Evgeny Rodriguez MD [facility] [address] [place] [address] 01/26/2022 10:44:19 01/26/2022 11:55:05 Chronic obstructive pulmonary disease 54992719 J44.9 Chronic {{complain t conditio n disease [...] provided Recheck complete PFTs Hypertensive disorder 38 485924 I10 Chronic {{complain t conditio n* disease [...] this time Multiple n odules of lung 805741053 R91.8 chronic {{complain t conditio n disease [...] based on Fleischner Society Guidelines Allergic rhinitis 829563 04 J30.9 Chronic {{complain t conditio n [...] 2 puffs BID as well Pulmonary hypertension 73602236 I27.20 Chronic {{complain t conditio n disease [...] Check echocardio gram Atheroscle rosis of aorta 51078769 I70.0 chronic {{complain t conditio n disease [...] take OTC antacids in case of heartburn [id number] Temiko Rodriguez MD [facility] [address] [place] [address] 06/18/2022 13:35:13 06/18/2022 14:51:34 Chronic obstructive pulmonary disease 54348126 J44.9 Chronic {{complain t conditio n disease [...] Try to do it BID Allergic rhinitis 854534 04 J30.9 Chronic {{complain t conditio n [...] most effective of all measures Try OTC Laondra, Zyrtec or Claritin. May try Alondra D, Zyrtec D, or Claritin D as well Try OTC Flonase / Nasacort 2 puffs BID as well Hypertensive disorder 38 036650 I10 Chronic {{complain t conditio n* disease [...] at this time Atheroscle rosis of aorta 49979160 I70.0 chronic {{complain t conditio n disease [...] antacids in case of heartburn Pulmonary hypertension 88218069 I27.20 Chronic {{complain t conditio n disease [...] Failure at this time Rheumatoid arthritis 698 18522 M06.9 chronic {{complain t conditio n disease [...] Plaquenil Chronic ki dney disease stage 3A 442807769 N18.31 chronic {{complain t conditio n disease [...] Continue to monitor closely Immunodefi ciency disorder 116760839 D84.81 chronic {{complain t conditio n disease [...] for rheumatoid arthritis Continue to monitor closely [id number] Evgeny Rodriguez MD [facility] [address] [place] [address] 02/07/2023 11:22:34 02/07/2023 12:08:43 Chronic obstructive pulmonary disease 56003404 J44.9 Chronic {{complain t conditio n disease [...] CT chest in 4 months Allergic rhinitis 587633 04 J30.9 Chronic {{complain t conditio n [...] / Nasacort 2 puffs BID as well [id number] Evgeny Rodriguez MD [facility] [address] [place] [address] 07/08/2023 12:03:14 07/08/2023 13:05:19 Allergic rhinitis 15899015 J30.9 Chronic {{complain t conditio n disease [...] puffs BID as well Hypertensive disorder 38 502505 I10 Chronic {{complain t conditio n* disease [...] at this time Atheroscle rosis of aorta 97233406 I70.0 chronic {{complain t conditio n disease [...] heartburn Chronic ki dney disease stage 3A 102665523 N18.31 chronic {{complain t conditio n disease [...] Continue to monitor closely Immunodefi ciency disorder 035635733 D84.81 chronic {{complain t conditio n disease [...] arthritis Continue to monitor closely Pulmonary hypertension 49818531 I27.20 Chronic {{complain t conditio n disease [...] this time Chronic ob structive pulmonary disease 71966704 J44.9 Chronic {{complain t conditio n disease [...] chest in 4 months Rheumatoid arthritis 698 96285 M06.9 chronic {{complain t conditio n disease [...] seeing rheumatkiarra traore and currently on Plaquenil 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 Needs monitoring Prescripti on drug management : No meds given at this time. Follow up as scheduled. Patient has patchy pulmonary fibrosis seen on imaging studies in the past There is no evidence of idiopathic pulmonary fibrosis or significan t reduction in diffusing capacity or hypoxemia Continue to monitor closely Pneumonia 865145306 J18. 9 Cor pulmonale 08649161 I 27.9 Chronic and unstable Patient has edema secondary to use of steroids Torsemide 10 mg a day for a few days and then as needed [id number] Evgeny Rodriguez MD [facility] [address] [place] [address] 07/19/2023 12:31:38 07/19/2023 12:53:00 Chronic obstructive pulmonary disease 65684499 J44.9 Chronic {{complain t conditio n disease [...] to do it BID Hypertensive disorder 38 745233 I10 Chronic {{complain t conditio n* disease [...] (MEDICARE REPLACEMENT/A DVANTAGE - PPO) Gilda Chan [id number] Gilda Chan 06/18/2022 1 [facility] (MEDICARE REPLACEMENT/A DVANTAGE - PPO) [id number] Gilda A Scheehser [id number] [place] [facility] 02/07/2023 1 [facility] (MEDICARE REPLACEMENT/A DVANTAGE - PPO) [id number] Gilda A Scheehser [id number] [place] [facility] Sche[facility] 07/08/2023 1 [facility] (MEDICARE REPLACEMENT/A DVANTAGE - PPO) [id number] [place] [facility] Scheehser [id number] Gilda A Scheehser 07/19/2023 1 [facility] (MEDICARE REPLACEMENT/A DVANTAGE - PPO) [id number] Gilda A Scheehser [id number] [place] [facility] Sche[facility] Notes Date Note Type Note Provider Name and Address Organization Details Recorded Time 01/26/2022 text/html Patient experien edvante expiratory wheezing on and off Patient's exercise [...] chest and PFTs noted Evgeny Rodriguez MD [address], [place], [address], [facility], [facility] 01/26/2022 11:51:56 06/18/2022 text/html Patient was hospitalized [...] normal levels now Evgeny Rodriguez MD [address], [place], [address], [facility], [facility] 06/18/2022 14:53:33 02/07/2023 text/html Patient having increasing cough and shortness of breath PFTs noted CT of the chest noted Patient complains of sinus pressure, dull headache, nasal stuffiness and postnasal drip. There is cough especially at night. Mucus is usually clear. Evgeny Rodriguez MD [address], [place], [address], [facility], [facility] 02/07/2023 13:08:19 07/08/2023 text/html Patient hospital ized for multifocal pneumonia and exacerbation of COPD He recovered well with antibiotic therapy and aggressive corticosteroids and being tapered off steroids slowly There is considerable pedal edema Evgeny Rodriguez MD [address], [place], [address], [facility], [facility] 07/08/2023 13:10:08 07/19/2023 text/html Patient experien devante expiratory wheezing on and off with cough and shortness of breath primarily from changes in environmental conditions Blood Pressure seems to be under reasonable control most of the time on current regimen of medications.BP log from home reviewed with patient Evgeny Rodriguez MD [address] [place], [address], [facility], [facility] 07/19/2023 12:58:33 OBGyn Episode No OBEpisode recorded.
== END 2024-05-17 16:04 | disposition home or self-care (01) ==
LOC: HO.HKASLDS 16:03
PROVIDERS: Internal Medicine Rheumatology; Visit Provider Internal Medicine Nephrology
DX: R74.01 Elevation of levels of liver transaminase levels (principal)
CPT/HCPCS: 36415; 80076

== ENCOUNTER 2024-06-19 13:39 | Outpatient (REF) | payer OTHER, SELFPAY ==
--- OUTSIDE RECORDS SUMMARY | 2024-06-19 18:00 | XMS_ITS ---
Author Organization [employer] Address [address] [place] [address] Care Team Providers Care Local Sales Associate Name Role Phone Hernandez CERVANTES, [place] Primary Care Provider [phone] Allergies Allergen (clinical drug ingredient) Drug/Non Drug [...] date:04/28/2024 01:46:24 PM Interpretation: Performing Lab:[facility], [address] [place] [id number], Phone - [phone], Director - Shalom Notes/Report: WBC 6.9 3.4-10.8 [...] Reviewed date:04/28/2024 01:46:25 PM Interpretation: Performing Lab:[facility], [address] [place], [place] [id number], Phone - [phone], Director - Shalom Notes/Report: Cholesterol, Total 125 100-199 mg/dL Triglycerides 92 0-149 mg/dL HDL Cholesterol 52 >39 mg/dL VLDL Cholesterol Ayo 17 5-40 mg/dL LDL Chol Calc ([facility]) 56 0-99 mg/dL T. Chol/HDL Ratio 2.4 0.0-4.4 ratio T. Chol/HDL Ratio Men Women 1/2 Avg.Risk 3.4 3.3 Avg.Risk 5.0 4.4 2X Avg.Risk 9.6 7.1 3X Avg.Risk 23.4 11.0 Comprehensive Metabolic Pane l 14 (CMP) Reviewed date:04/28/2024 01:46:25 PM Interpretation: Performing Lab:[facility], [address] [place], [place] [id number], Phone - [phone], Director - Shalom Notes/Report: Glucose 67 70-99 [...] daily Active Vitamin D (Ergocalciferol) 1.25 MG (90413 UT) 1 capsule Orally weekly for 90 [...] Encounter Location Date Provider Diagnosis [facility] [address] [place], [place] [phone] 04/05/2024 Paulo Ng Chronic obstructive pulmonary disease, unspecified J44.9 ; Essential (primary) hypertension I10 ; Rheumatoid arthritis, unspecified M06.9 ; Immunodeficiency due to conditions classified elsewhere D84.81 ; Routine adult health maintenance Z00.00 ; Other buttermaker continuous churn (current) drug therapy Z79.899 and Rheumatoid arthritis, involving unspecified site, unspecified whether rheumatoid factor present M06.9 Assessments Encounter Date Diagnosis (ICD Code) Assessment Notes Treat ment Notes Treatment Clinical Notes 04/05/2024 Chronic obstructive pulmonary disease, unspecified (ICD-10 - J44.9) [facility] [id number] Continue to follow with [facility] [facility]. 02/27 weaning down on predisone right now doing 04/05/2024 Essential (primary) hypertension (ICD-10 - I10) [facility] [id number] Continue medications and home monitoring as directed. [...] factor present (ICD-10 - M06.9) 04/05/2024 Other skilled nursing (current) drug therapy (ICD-10 - Z79.899) Plan Of Treatment Treatment Notes Assessment Notes Chronic obstructive pulmonar y disease, unspecified Continue to follow with [employer]. 02/27 weaning down on predisone right now [...] Name:Paulo Ng , 06/22/2024 02:40:00 PM, [address] [facility] [address], [place], [place], [phone], Progress Notes * Gilda CHAN ADOB:1935 (88 yo F)Acc No.[id number]:04/05/2024 Patient:?Gilad CHAN A Provider:?Paulo Ng MD :1935???Age:88 Y???Sex:Female D ate:04/05/2024 Address:[address] [place], [place] [id number] Subjective: * Chief Complaints: * ???4 wk f/uThis is a [facility]/Telemedicine visit conducted using synchronous audio . The [...] once daily , Notes to Pharmacist: 1/2 tabletpredniSONE 5 MG Tablet 1 tablet Orally [...] 630mg once dailyVitamin D (Ergocalciferol) 1.25 MG (40650 UT) Capsule 1 capsule Orally weekly Taking [...] once dailyTaking Vitamin D (Ergocalciferol) 1.25 MG (20431 UT) Capsule 1 capsule Orally weekly Not-TakingpredniSONE [...] pulmo nary disease, unspecified - J44.9 (Primary)???Notes :[facility] [place][id number]-???2.?Essential (primary) hypertension - I10???Notes [place] [id number]-???3.?Rheumatoid arthritis, unspecified - M06.9???4.?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 Plan: * [...] classified elsewhere? Notes: Due to COPD.?? 5.?Other buttermaker continuous churn (current) drug therapy?LAB: Complete Blood Count with Differential/Platelet (CBC) ?LAB: Lipid Panel With Total Cholesterol/HDL Ratio ?LAB: Comprehensive Metabolic Panel 14 (CMP) * Procedure Codes:?1159F Medic ation list [id number] Medication Review * Preventive Medicine:? ??Handouts :?Patient Handouts:?THE FOLLOWING HANDOUTS WERE PROVIDED:?Visit summary ?THE ABOVE HANDOUTS WERE PROVIDED BY:?Farzad Gaona 04/05/2024 08:29:28 AM EST >.?HANDOUTS REVIEWED WITH:?patient.?METHOD USED TO DEMONSTRATE UNDERSTANDING: ?verbalized understanding.?UNDERSTANDING OF HANDOUT WAS DEMONSTRATED?Farzad Gaona 04/05/2024 08:29:33 AM EST >.? * Follow Up:?prn * * LAUNDERER Sign off status: Completed true * Provider:?Paulo Ng MD Date:?04/05 Generated for Phani elkins/Marcus/eTyanirasmleslye on:?06/19/2024 03:37 PM CDT History and Physical Notes * Examination Category Sub-Category Detail Notes General Examination Psych: does not dawson ear depressed, normal affect.
--- OUTSIDE RECORDS SUMMARY | 2024-06-19 18:01 | XMS_ITS | Data Portability ---
Author Organization [place] [facility] [employer], OFFICE Address [address] [place] [address] Care Team Providers Care Floor Layer Tile Name Role Phone RAJIV RED Primary Care Provider Assessment No assessment recorded. Plan of Treatment Reminders Order Date Submit Date Provider Last Modified By Organization Details Last Modified Time Details Appointments None recorded . Lab hemoglob in A1C, fingerst ick 2022 023 JONNATHAN In-House Results, For Internal Use Only, Do Not Delete/merge, [id number] 3 12:20:33 CMP, serum or plasma 2021 022 [email or web address] [employer] [facility], [address], [address], [place], [address], 2 15:02:05 CBC w/ auto diff 2021 022 [email or web address], [address], [address], [place], [address], 2 15:02:05 lipid panel, serum 2021 022 [email or web address], [address], [address], [place], [address], 2 15:02:05 Referral pulmonol ogist referral 2022 023 debra Not available 13:09:23 Procedures None recorded . Surgeries None recorded . Imaging XR, knee, 3 view 2021 022 [email or web address] [facility], [address], [place], [address], 3 07:19:05 XR, knee, 3 view 2021 022 [email or web address] [facility], [address], [place], [address], 3 07:19:05 Medication Orders cyanocob alamin (vit B-12) 1,000 mcg/mL injectio n solution 2022 023 Not available 3 12:46:56 famotidi ne 20 mg tablet 2022 023 [facility] [address], [address] [place], [address], 3 14:02:57 cyanocob alamin (vit B-12) 1,000 mcg/mL injectio n solution 2022 023 [email or web address] Not available 3 16:51:19 cyanocob alamin (vit B-12) 1,000 mcg/mL injectio n solution 2022 023 Not available 15:02:14 Patient TargetsNo targets recorded. Patient Instructions Encounter Date Encounter Id Patient Instructions Last Modified By Organization Details Last Modified Time 03/02/2022 [id number] 30 min total veronica e of encounter including face to face and non face to face time spent: Preparing to see patient Obtaining and reviewing separately obtained history Performing medically appropriate examination or evaluation Counseling and educating patient/family/car egiver Ordering medications, tests, or procedures Referring and communication with other health care transitions nurse Documenting clinical information in the medical record Independently interpreting and communicating results to patient/caregiver Care coordination Discussed treatment plan with patient. The patient verbalized understanding and agrees with plan and follow up. There are no other questions and concerns at this time. f/u scheduled vascular surgeon consult [id number] vascular surgery varicose veins conservative treatment Not available 03/02/2022 08:25:02 05/27/2022 [id number] 30 min total veronica e of encounter including face to face and non face to face time spent: Preparing to see patient Obtaining and reviewing separately obtained history Performing medically appropriate examination or evaluation Counseling and educating patient/family/car egiver Ordering medications, tests, or procedures Referring and communication with other health care transitions nurse Documenting clinical information in the medical record Independently interpreting and communicating results to patient/caregiver Care coordination Discussed treatment plan with patient. The patient verbalized understanding and agrees with plan and follow up. There are no other questions and concerns at this time. f/u scheduled Discussed all CBC w/ auto diff [id number] 6.2 11.3 WBC 6.2 RBC 4.03 hemoglobin 11.3 hematocrit 33.8 below low normal MCV 84 MCH 28.0 MCHC 33.4 RDW 13.5 platelets 321 neutrophils 48 lymphs 39 monocytes 11 eos 1 basos 1 immature cells [employer] neutrophils (absolute) 3.0 lymphs (absolute) 2.4 monocytes(absolute ) 0.7 eos (absolute) 0.1 baso (absolute) 0.0 immature granulocytes 0 immature grans (abs) 0.0 NRBC [employer] documents closer hematology comments: loan documents closer lipid panel, serum [id number] 139 49 68 127 cholesterol, total 139 triglycerides 127 HDL cholesterol 49 VLDL cholesterol cristina 22 LDL chol calc (nih) 68 comment: loan documents closer CMP, serum or plasma [id number] 71 1.13 glucose 71 BUN 23 creatinine 1.13 above high normal eGFR 47 below low normal BUN/creatinine ratio 20 sodium 139 potassium 4.6 chloride 102 carbon dioxide, total 26 calcium 9.3 protein, total 6.3 albumin 3.7 globulin, total 2.6 A/G ratio 1.4 bilirubin, total 0.2 alkaline phosphatase 47 AST (SGOT) 18 ALT (SGPT) 23 CMP, serum or plasma [id number] lisandro ann CMP14 default comment lipid panel, serum [id number] lisandro ann LP default comment XR, knee, 3 [id number] IMPRESSION: 1.No acute osseous abnormality. 2.Moderate medial patellofemoral compartment osteoarthritis If there are persistent symptoms, consider additional imaging such as knee MRI to assess for internal derangement. 03/05/2022 Re-post to PACS Electronically Signed By: Wilfrid Robertson MD XR, knee, 3 [id number] XR, knee, 3 [id number] No acute osseous abnormality. Moderate medial patellofemoral compartment osteoarthritis. XR, knee, 3 view Not available 05/27/2022 15:00:17 06/10/2022 [id number] mini-cog assessment* [id number] Not available 06/25/2022 15:25:02 low calorie diet [...] procedures Referring and communication with other health care transitions nurse Documenting clinical information in the medical record Independently interpreting and communicating results to patient/caregiver Care coordination Discussed treatment plan with patient. The patient verbalized understanding and agrees with plan and follow up. There are no other questions and concerns at this time. f/u scheduled [address] [facility] Emergency Dept [place], [place] [id number] Rosalva Aguila D.O. 99[address] [facility], [address] [place] [address] [id number] COPD with acute exacerbation (HCC) (Primary Dx); Acute hypoxemic respiratory failure (HCC); Atypical pneumonia; Essential hypertension; Community acquired bacterial pneumonia; CHRISTIAN (acute kidney injury) (HCC); Pneumonia of both lungs due to infectious organism, unspecified part of lung Discussed all CBC w/ auto diff [id number] 6.2 11.3 WBC 6.2 RBC 4.03 hemoglobin 11.3 hematocrit 33.8 below low normal MCV 84 MCH 28.0 MCHC 33.4 RDW 13.5 platelets 321 neutrophils 48 lymphs 39 monocytes 11 eos 1 basos 1 immature cells [employer] neutrophils (absolute) 3.0 lymphs (absolute) 2.4 monocytes(absolute ) 0.7 eos (absolute) 0.1 baso (absolute) 0.0 immature granulocytes 0 immature grans (abs) 0.0 NRBC loan documents closer hematology comments: loan documents closer lipid panel, serum [id number] 139 49 68 127 cholesterol, total 139 triglycerides 127 HDL cholesterol 49 VLDL cholesterol cristina 22 LDL chol calc (nih) 68 comment: loan documents closer CMP, serum or plasma [id number] 71 1.13 glucose 71 BUN 23 creatinine 1.13 above high normal eGFR 47 below low normal BUN/creatinine ratio 20 sodium 139 potassium 4.6 chloride 102 carbon dioxide, total 26 calcium 9.3 protein, total 6.3 albumin 3.7 globulin, total 2.6 A/G ratio 1.4 bilirubin, total 0.2 alkaline phosphatase 47 AST (SGOT) 18 ALT (SGPT) 23 CMP, serum or plasma [id number] ambig abbrev CMP14 default comment lipid panel, serum [id number] ambig abbrev LP default comment XR, knee, 3 [id number] IMPRESSION: 1.No acute osseous abnormality. 2.Moderate medial patellofemoral compartment osteoarthritis If there are persistent symptoms, consider additional imaging such as knee MRI to assess for internal derangement. 03/05/2022 Re-post to PACS Electronically Signed By: Wilfrid Robertson MD XR, knee, 3 [id number] XR, knee, 3 [id number] No acute osseous abnormality. Moderate medial patellofemoral compartment osteoarthritis. XR, knee, 3 view Not available 06/10/2022 13:53:59 06/25/2022 [id number] 30 min total veronica e of encounter including face to face and non face to face time spent: Preparing to see patient Obtaining and reviewing separately obtained history Performing medically appropriate examination or evaluation Counseling and educating patient/family/car egiver Ordering medications, tests, or procedures Referring and communication with other health care transitions nurse Documenting clinical information in the medical record Independently interpreting and communicating results to patient/caregiver Care coordination Discussed treatment plan with patient. The patient verbalized understanding and agrees with plan and follow up. There are no other questions and concerns at this time. f/u scheduled [address] [facility] [place] [address] Rosalva Aguila D.O. [address] [facility], [address] [place] [id number] COPD with acute exacerbation (HCC) (Primary Dx); Acute hypoxemic respiratory failure (HCC); Atypical pneumonia; Essential hypertension; Community acquired bacterial pneumonia; CHRISTIAN (acute kidney injury) (HCC); Pneumonia of both lungs due to infectious organism, unspecified part of lung Discussed all CBC w/ auto diff [id number] 6.2 11.3 WBC 6.2 RBC 4.03 hemoglobin 11.3 hematocrit 33.8 below low normal MCV 84 MCH 28.0 MCHC 33.4 RDW 13.5 platelets 321 neutrophils 48 lymphs 39 monocytes 11 eos 1 basos 1 immature cells [employer] documents [employer] neutrophils (absolute) 3.0 lymphs (absolute) 2.4 monocytes(absolute ) 0.7 eos (absolute) 0.1 baso (absolute) 0.0 immature granulocytes 0 immature grans (abs) 0.0 NRBC loan documents closer hematology comments: loan documents closer lipid panel, serum [id number] 139 49 68 127 cholesterol, total 139 triglycerides 127 HDL cholesterol 49 VLDL cholesterol cristina 22 LDL chol calc (nih) 68 comment: loan documents closer CMP, serum or plasma [id number] 71 1.13 glucose 71 BUN 23 creatinine 1.13 above high normal eGFR 47 below low normal BUN/creatinine ratio 20 sodium 139 potassium 4.6 chloride 102 carbon dioxide, total 26 calcium 9.3 protein, total 6.3 albumin 3.7 globulin, total 2.6 A/G ratio 1.4 bilirubin, total 0.2 alkaline phosphatase 47 AST (SGOT) 18 ALT (SGPT) 23 CMP, serum or plasma [id number] lisandro ann CMP14 default comment lipid panel, serum [id number] ambbrand[address] abbreluigi LP default comment XR, knee, 3 [id number] IMPRESSION: 1.No acute osseous abnormality. 2.Moderate medial patellofemoral compartment osteoarthritis If there are persistent symptoms, consider additional imaging such as knee MRI to assess for internal derangement. 03/05/2022 Re-post to PACS Electronically Signed By: Wilfrid Robertson MD XR, knee, 3 [id number] XR, knee, 3 [id number] No acute osseous abnormality. Moderate medial patellofemoral compartment osteoarthritis. 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 Referral for M ultiple nodules of lung Referring Physician: Rajiv Red, Internal Medicine, Encounter Date: 05/27/2022 Results Created Date Observation Date Name Description Value Unit Range Abnormal Flag Note LastModifiedBy Organization Detail LastModifiedTime 05/21/1905/21/2022 CBC/D IFF AMBIG UOUS DEFAU LT WBC 6.2 x10e3 /uL 3.4-10 .8 Not Available [facility] ([facility]) [address] [place], [address], 05/21/2022 08:12:29 05/21/19 23 05/21/2022 CBC/D IFF AMBIG UOUS DEFAU LT RBC 4.03 x10e6 /uL 3.77-5 .28 Not Available [facility] ([facility]) [address] [place], [address], 05/21/2022 08:12:29 05/21/19 23 05/21/2022 CBC/D IFF AMBIG UOUS DEFAU LT hemoglobin 11.3 g/dL 11.1-1 5.9 Not Available [facility] ([facility]) [address] [place], [address], 05/21/2022 08:12:29 05/21/19 23 05/21/2022 CBC/D IFF AMBIG UOUS DEFAU LT hematocrit 33.8 % 34.0-4 6.6 below low normal Not Available [facility] ([facility]) [address] [place], [address], 05/21/2022 08:12:29 05/21/19 23 05/21/2022 CBC/D IFF AMBIG UOUS DEFAU LT MCV 84 fL 79-97 Not Available [facility] ([facility]) [address] [place], [address], 05/21/2022 08:12:29 05/21/19 23 05/21/2022 CBC/D IFF AMBIG UOUS DEFAU LT MCH 28.0 pg 26.6-3 3.0 Not Available [facility] ([facility]) [address] [facility], [place], [address], 05/21/2022 08:12:29 05/21/19 23 05/21/2022 CBC/D IFF AMBIG UOUS DEFAU LT MCHC 33.4 g/dL 31.5-3 5.7 Not Available [facility] ([facility]) [address] [facility], [place], [address], 05/21/2022 08:12:29 05/21/19 23 05/21/2022 CBC/D IFF AMBIG UOUS DEFAU LT RDW 13.5 % 11.7-1 5.4 Not Available [facility] ([facility]) [address] [facility], [place], [address], 05/21/2022 08:12:29 05/21/19 23 05/21/2022 CBC/D IFF AMBIG UOUS DEFAU LT platelets 321 x10e3 /uL 150-45 0 Not Available [facility] ([facility]) [address] [facility], [place], [address], 05/21/2022 08:12:29 05/21/19 23 05/21/2022 CBC/D IFF AMBIG UOUS DEFAU LT neutrophils 48 % not estab. Not Available [facility] ([facility]) [address] [facility], [place], [address], 05/21/2022 08:12:29 05/21/19 23 05/21/2022 CBC/D IFF AMBIG UOUS DEFAU LT lymphs 39 % not estab. Not Available [facility] ([facility]) [address] [facility], [place], [address], 05/21/2022 08:12:29 05/21/19 23 05/21/2022 CBC/D IFF AMBIG UOUS DEFAU LT monocytes 11 % not estab. Not Available [facility] ([facility]) [address] [facility], [place], [address], 05/21/2022 08:12:29 05/21/19 23 05/21/2022 CBC/D IFF AMBIG UOUS DEFAU LT eos 1 % not estab. Not Available [facility] ([facility]) [address] [facility], [place], [address], 05/21/2022 08:12:29 05/21/19 23 05/21/2022 CBC/D IFF AMBIG UOUS DEFAU LT basos 1 % not estab. Not Available [facility] ([facility]) [address] [facility], [place], [address], 05/21/2022 08:12:29 05/21/19 23 05/21/2022 CBC/D IFF AMBIG UOUS DEFAU LT immature cells SPRING TESTER Not Available [facility] ([facility]) [address] [place], [address], 05/21/2022 08:12:29 05/21/19 23 05/21/2022 CBC/D IFF AMBIG UOUS DEFAU LT neutrophils (absolute) 3.0 x10e3 /uL 1.4-7. 0 Not Available [facility] ([facility]) [address] [place], [address], 05/21/2022 08:12:29 05/21/19 23 05/21/2022 CBC/D IFF AMBIG UOUS DEFAU LT lymphs (absolute) 2.4 x10e3 /uL 0.7-3. 1 Not Available [facility] ([facility]) [address] [place], [address], 05/21/2022 08:12:29 05/21/19 23 05/21/2022 CBC/D IFF AMBIG UOUS DEFAU LT monocytes(ab solute) 0.7 x10e3 /uL 0.1-0. 9 Not Available [facility] ([facility]) [address] [facility], [place], [address], 05/21/2022 08:12:29 05/21/19 23 05/21/2022 CBC/D IFF AMBIG UOUS DEFAU LT eos (absolute) 0.1 x10e3 /uL 0.0-0. 4 Not Available [facility] ([facility]) [address] [facility], [place], [address], 05/21/2022 08:12:29 05/21/1905/21/2022 CBC/D IFF AMBIG UOUS DEFAU LT baso (absolute) 0.0 x10e3 /uL 0.0-0. 2 Not Available [facility] ([facility]) [address] [facility], [place], [address], 05/21/2022 08:12:29 05/21/1905/21/2022 CBC/D IFF AMBIG UOUS DEFAU LT immature granulocytes 0 % not estab. Not Available [facility] ([facility]) [address] [facility], [place], [address], 05/21/2022 08:12:29 05/21/19 23 05/21/2022 CBC/D IFF AMBIG UOUS DEFAU LT immature grans (abs) 0.0 x10e3 /uL 0.0-0. 1 Not Available [facility] ([facility]) [address] [facility], [place], [address], 05/21/2022 08:12:29 05/21/1905/21/2022 CBC/D IFF AMBIG UOUS DEFAU LT NRBC SPRING TESTER Not Available [facility] ([facility]) [address] [facility], [place], [address], 05/21/2022 08:12:29 05/21/19 23 05/21/2022 CBC/D IFF LISANDRO MENDEZ DEFAU LT hematology comments: SPRING TESTER A hand- writt en panel /prof mckenzie [...] ciate your busin ess. Not Available [facility] ([facility]) [address] [place], [address], 05/21/2022 08:12:29 05/21/19 23 05/21/2022 COMP. METAB OLIC PANEL (14) glucose 71 mg/dL 70-99 Not Available [facility] ([place] [facility]) [address] [place], [address], 05/21/2022 08:12:29 05/21/19 23 05/21/2022 COMP. METAB OLIC PANEL (14) BUN 23 mg/dL 8-27 Not Available [facility] ([facility]) [address] [place], [address], 05/21/2022 08:12:29 05/21/19 23 05/21/2022 COMP. METAB OLIC PANEL (14) creatinine 1.13 mg/dL 0.57-1 .00 above high normal Not Available [facility] ([facility]) [address] [place], [address], 05/21/2022 08:12:29 05/21/19 23 05/21/2022 COMP. METAB OLIC PANEL (14) eGFR 47 mL/mi n/1.7 3 >59 below low normal Not Available [facility] ([facility]) [address] [facility], [place], [address], 05/21/2022 08:12:29 05/21/1905/21/2022 COMP. METAB OLIC PANEL (14) BUN/creatini ne ratio 02 03- Not Available [facility] ([facility]) [address] [facility], [place], [address], 05/21/2022 08:12:29 05/21/19 23 05/21/2022 COMP. METAB OLIC PANEL (14) sodium 139 mmol/ L 134-14 4 Not Available [facility] ([facility]) [address] [place], [address], 05/21/2022 08:12:29 05/21/19 23 05/21/2022 COMP. METAB OLIC PANEL (14) potassium 4.6 mmol/ L 3.5-5. 2 Not Available [facility] ([facility]) [address] [facility], [place], [address], 05/21/2022 08:12:29 05/21/19 23 05/21/2022 COMP. METAB OLIC PANEL (14) chloride 102 mmol/ L 96-106 Not Available [facility] ([facility]) [address] [facility], [place], [address], 05/21/2022 08:12:29 05/21/19 23 05/21/2022 COMP. METAB OLIC PANEL (14) carbon dioxide, total 26 mmol/ L - Not Available [facility] ([facility]) [address] [facility], [place], [address], 05/21/2022 08:12:29 05/21/19 23 05/21/2022 COMP. METAB OLIC PANEL (14) calcium 9.3 mg/dL 8.7-10 .3 Not Available [facility] ([facility]) [address] [facility], [place], [address], 05/21/2022 08:12:29 05/21/19 23 05/21/2022 COMP. METAB OLIC PANEL (14) protein, total 6.3 g/dL 6.0-8. 5 Not Available [facility] ([facility]) [address] [place], [address], 05/21/2022 08:12:29 05/21/19 23 05/21/2022 COMP. METAB OLIC PANEL (14) albumin 3.7 g/dL 3.6-4. 6 Not Available [facility] ([facility]) [address] [place], [address], 05/21/2022 08:12:29 05/21/19 23 05/21/2022 COMP. METAB OLIC PANEL (14) globulin, total 2.6 g/dL 1.5-4. 5 Not Available [facility] ([facility]) [address] [facility] [place], [address], 05/21/2022 08:12:29 05/21/19 23 05/21/2022 COMP. METAB OLIC PANEL (14) A/G ratio 1.4 1.2-2. 2 Not Available [facility] ([facility]) [address] [facility] [place], [address], 05/21/2022 08:12:29 05/21/19 23 05/21/2022 COMP. METAB OLIC PANEL (14) bilirubin, total 0.2 mg/dL 0.0-1. 2 Not Available [facility] ([facility]) [address] [facility] [place], [address], 05/21/2022 08:12:29 05/21/19 23 05/21/2022 COMP. METAB OLIC PANEL (14) alkaline phosphatase 47 IU/L 44-121 Not Available [facility] ([facility]) [address] [facility], [place], [address], 05/21/2022 08:12:29 05/21/19 23 05/21/2022 COMP. METAB OLIC PANEL (14) AST (SGOT) 18 IU/L 0-40 Not Available [facility] ([facility]) [address] [facility] [place], [address], 05/21/2022 08:12:29 05/21/19 23 05/21/2022 COMP. METAB OLIC PANEL (14) ALT (SGPT) 23 IU/L 0-32 Not Available [facility] ([facility]) [address] [facility] [place], [address], 05/21/2022 08:12:29 05/21/19 23 05/21/2022 LIPID PANEL cholesterol, total 139 mg/dL 100-19 9 Not Available [facility] ([facility]) [address] [facility] [place], [address], 05/21/2022 08:12:30 05/21/19 23 05/21/2022 LIPID PANEL triglyceride s 127 mg/dL 0-149 Not Available [facility] ([facility]) [address] [facility] [place], [address], 05/21/2022 08:12:30 05/21/19 23 05/21/2022 LIPID PANEL HDL cholesterol 49 mg/dL >39 Not Available [facility] ([facility]) [address] [facility] [place], [address], 05/21/2022 08:12:30 05/21/19 23 05/21/2022 LIPID PANEL VLDL cholesterol cristina 22 mg/dL 5-40 Not Available [facility] ([facility]) [address] [facility] [place], [address], 05/21/2022 08:12:30 05/21/19 23 05/21/2022 LIPID PANEL LDL chol calc (nih) 68 mg/dL 0-99 Not Available [facility] ([facility]) [address] [facility] [place], [address], 05/21/2022 08:12:30 05/21/19 23 05/21/2022 LIPID PANEL comment: SPRING TESTER Not Available [facility] ([facility]) [address] [facility], [place], [address], 05/21/2022 08:12:30 05/21/19 23 05/20/2022 AMBIG ABBRE [...] ciate your elderin ess. Not Available [facility] ([facility]) [address] [facility], [place], [address], 05/21/2022 08:12:31 05/21/19 23 05/20/2022 AMBIG ABBRE [...] ciate your busin ess. Not Available [facility] ([facility]) [address] [facility], [place], [address], 05/21/2022 08:12:31 06/12/1906/11/2022 hemog lobin A1C, shawn mesatic k A1C 5.3 Not Available In-House Results For Internal Use Only, Do Not Delete/merge, [id number] 06/10/2022 08:34:00 04/05/19 23 03/04/2022 XR, knee, [...] such as knee MRI to assess for recording studio intern al georgette duncan. 2021 Re-pos t to PACS Electr onical ly Signed By: Wilfrid Robertson MD [facility] [id number] [place] [address] [place], [place], [address], 05/27/2022 14:51:08 04/05/19 23 03/04/2022 XR, knee, [...] such as knee MRI to assess for recording studio intern al georgette hicksenio. 2021 Re-pos t to PACS Electr onical ly Signed By: Wilfrid Robertson MD [place] [id number] [facility] - [address], [place], [address], 05/27/2022 14:51:08 04/05/19 23 03/04/2022 XR, knee, 3 view No observ ation record ed. [place] [id number] [facility] - [address], [place], [address], 05/27/2022 14:51:08 04/05/19 23 03/04/2022 XR, knee, 3 view No observ ation record ed. [address] [facility] [address], [place], [address], 05/27/2022 14:51:08 Result Notes None recorded. Problems Name Problem SNOMED Code Status Onset Date Resolution Date Notes Provider Name and Address Organization Details Recorded Time Long-ter m drug therapy Completed 201604/09/2021 LIAM CARBALLO [address], [place], [address], [facility], [facility] 2 17:00:00 Body mass index 25-29 - overweig 599739923 Completed 201607/07/2017 LIAM CARBALLO [address], [place], [address], [facility], [facility] 2 16:59:26 Elevated blood-pr essure reading without diagnosi s of hyperten sarai 011681945 Completed 201602/26/2018 Removal Reason: has HTN JCARLOS quintanilla, [facility], [facility] 8 08:35:57 [facility] hyperten sarai 07090434 Active 2016 DONNA CROSS [facility], [facility], [facility] 9 15:35:52 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 conserva tive tx d'vida DONNA CROSS [facility], [facility] 9 15:35:52 Cough 46304335 Completed 201705/19/2018 Removal Reason: resolved [facility] 9 10:11:11 Hip pain 34573416 Completed 04/09/2021 LIAM CARBALLO [address] [facility] [address], [place], [address], [facility] 2 17:00:11 Cough 54992328 Completed 03/26/2016 JCARLOS Meraz [facility], [facility] 9 10:11:11 Acute bronchit is 44815235 Completed 01/22/2016 RICHARD BONNY [facility], [facility] 6 15:09:56 Asthma 912964452 Active DONNABARBARA CROSS [facility] 9 15:35:52 Disorder of bone and articula r cartilag e 019769877 Completed 01/06/2020 Removal Reason: dup dx JCARLOS quintanilla, [facility] 0 08:33:44 Orthosta tic hypotens ion 64751941 Completed 201701/06/2020 Removal Reason: resolved [facility]CARLOS [facility] 0 08:34:53 Dizzines s 710523397 Completed 201701/06/2020 s/p stiolto? ? Removal Reason: resolved [facility] 0 08:33:24 Vitamin D deficien cy 96881146 Active 29.0 01/30/18 [facility] 9 15:35:52 Body mass index 30+ - obesity 705194417 Active 2017 DONNA CROSS [facility] 9 15:35:52 Vertigo 241652488 Active 2017 DONNA CROSS [facility] 9 15:35:52 Syncope 737343567 Active 2017 Stress test 01/26/18 neg -- ECHO 01/23/18 EF 60% w/ trace valvular issues DONNABARBARA CROSS [facility] 9 15:35:52 Pulmonar y hyperten sarai 90269882 Active 2017 mild echo 01/23/18 w/ trace TR and history of COPD DONNABARBARA CROSS [facility] 9 15:35:52 Supraven tricular tachycar jad 3154579 Active 2018 DONNABARBARA CROSS [facility] 9 15:35:52 Leukopen ia 07811704 Completed 201801/06/2020 new onset 06/26/18 at 4.1 Removal Reason: resolved [facility] 0 08:33:34 Serum creatini ne above referenc e range 563019167 Completed 201801/06/2020 New onset serum creatini ne raised. CMP 03/05/19 with creatini ne 1.09 and GFR 47. Avoid nephroto xins. Push fluids. Repeat CMP. Removal Reason: ckd 3 [facility] 0 08:34:46 Chronic kidney disease stage 3 324740931 Active 2019 [facility] 0 07:25:19 Cyst of kidney 497329057 Active 2019 Recent new onset. Patient had [...] comparis on. We will follow along. 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 Active 2020 [facility] Register My Info [facility] 1 11:06:45 Computed tomograp hy result abnormal 113868953 Completed 202004/09/2021 LIAM CARBALLO [address] [place] [address] [address], [place], [address], [facility] 2 16:59:35 Body mass index 25-29 - overweig ht 285218564 Completed 202004/09/2021 LIAM CARBALLO [address] [place] [address] [address], [place], [address], [facility] 2 16:59:26 COVID-19 625174703 Active 2020 [facility] Register My Info [facility], [facility] 1 11:04:15 Dyspnea 901874638 Active [facility] Register My Info [facility], [facility] 9 15:35:51 Serum vitamin B12 below referenc e range 632389617 Active 2022 Hammad Pham 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 Just above goal of less than 100. Has no history of CVA, TIA, CAD, PVD or DM. Cannot calculat e CV risk per AHA calculat ion due to age. Hold off on statin. Work on diet adn exercise . JCARLOS WILL quintanilla, [facility] 9 09:43:53 Knee pain Completed 04/09/2021 LIAM CARBALLO [address], [place], [address], [facility] 2 17:00:08 Tobacco dependen ce syndrome 92439681 Completed 04/09/2021 LIAM CARBALLO [address], [place], [address], [facility] 2 17:00:18 Osteopen ia 535602471 Active [facility] Register My Info [facility] 9 15:35:52 Lighthea dedness 220455940 Completed 03/26/2016 Asha Self [facility] 7 09:38:57 Pneumoni a 096668171 Completed 03/26/2016 Asha Self [facility] 7 09:38:45 Foot pain 82218920 Completed 04/09/2021 LIAM CARBALLO [address], [place], [address], [facility] 2 16:59:47 Multiple nodules of lung 802113721 Active [address] rodriguez -- stable CT chest via pulm consult 01/25/17 and consult 01/20/18 DONNA quintanilla, [facility] Register My Info [facility], [facility] 15:35:52 Body mass index 25-29 - overweig ht 880360347 Completed 201503/26/2016 LIAM CARBALLO [address], [place], [address], [facility], [facility] 2 16:59:26 Disorder of vitamin B12 954491992 Active 2015 DONNA quintanilla [facility], [facility] 9 15:35:52 Body mass index 30+ - obesity 865095024 Completed 201602/11/2017 [facility]BARBARA [facility] 8 08:44:05 Problem Notes None recorded. Procedures Surgical History Date Name Laterality Status Provider Name and Address Organization Details Recorded Time 3 Injections completed Hammad Pham [facility], [facility] 06/25/2022 10:35:10 3 Injections completed SANJEEV BILL [facility] 07/29/2022 09:33:44 3 Injections completed nadine nickerson [facility], [facility] 03/22/2022 13:49:14 2 Injections completed uri corbin [facility], [facility] 02/17/2022 15:29:52 2 Injections completed uri corbin [facility], [facility] 01/13/2022 13:53:39 2 [place] [address], [place], [address], [facility], [facility] 02/07/2012 13:23:39 Imaging Results Imaging Date Name Status LastModified by Organiz ation Details LastModified Time 03/04/2022 XR, knee, 3 view completed [facility] [address], [place], [address], 05/27/2022 14:51:08 03/04/2022 XR, knee, 3 view completed [facility] [address], [place], [address], 05/27/2022 14:51:08 03/04/2022 XR, knee, 3 view completed [facility] [address] [place], [address], 05/27/2022 14:51:08 03/04/2022 XR, knee, 3 view completed [facility] [address] [place], [address], 05/27/2022 14:51:08 Procedure Notes None recorded. Medical Equipment None Reported. Allergies Allergen ID Allergen Name Allergen Category Reaction Reaction Severity Criticality Documentation Date Start Date Code Code System Note Provider Name and Address Organization Details Recorded Time 36089 latex environme nt,medica tion hives Not available Not available 02/12/2014 52833 91 RxNorm ashly castillo [facility] 4 09:04:41 94 Substance with sulfonami de structure and antibacte rial mechanism of action (substanc e) medicatio n Not available Not available Not available 02/07/2012 61299 8003 SNOMED Russell [facility] 2 13:06:50 Medications Name Sig Start [...] Updated DateTime 2 152.4 cm 29.3 kg/m2 96380.8 6 g 97.6 [degF] 16 /min 79 /min 95 % 95 % 136 mm[Hg] 73 mm[Hg] YANNICK MALIK [facility], [facility] 2 11:30:57 Date Recorded Body height Body mass index (BMI) Body weight Heart rate Oxygen saturation Oxygen saturation in Arterial blood by Pulse oximetry Respiratory rate Body temperature Systolic blood pressure Diastolic blood pressure Provider Name and Address Organization Details Last Updated DateTime 3 152.4 cm 29.5 kg/m2 61516.4 5 g 79 /min 96 % 96 % 16 /min 97.8 [degF] 118 mm[Hg] 60 mm[Hg] Hammad Pham [facility] Internal [facility], [facility] 3 14:46:48 Date Recorded Body height Body mass index (BMI) Body weight Respiratory rate Body temperature Oxygen saturation Oxygen saturation in Arterial blood by Pulse oximetry Heart rate Systolic blood pressure Diastolic blood pressure Provider Name and Address Organization Details Last Updated DateTime 3 152.4 cm 30.5 kg/m2 14633.4 1 g 16 /min 97.6 [degF] 91 % 91 % 82 /min 132 mm[Hg] 68 mm[Hg] uri corbin [facility], [facility] 3 13:37:48 Date Recorded Respiratory rate Heart rate Oxygen saturation Oxygen saturation in Arterial blood by Pulse oximetry Body temperature Systolic blood pressure Diastolic blood pressure Provider Name and Address Organization Details Last Updated DateTime 3 16 /min 85 /min 94 % 94 % 97.7 [degF] 121 mm[Hg] 71 mm[Hg] Hammad Pham [facility] 3 10:37:29 Social History Question Answer Notes LastModified by Organizat ion Details LastModified Time Tobacco Smoking Status Former Smoker Not Available [facility] 01/08/2020 03:18:43 Do You Have An Advance Directive? Yes [email or web address] Information not available 06/23/2020 What Is Your Level Of Alcohol Consumption? None [email or web address] Information not available 06/23/2020 Are You Blind Or Do You Have Difficulty Seeing? No Information not available 06/23/2020 Is Blood Transfusion Acceptable In An Emergency? Yes [email or web address] Information not available 02/02/2022 What Is Your Level Of Caffeine Consumption? Occasional [email or web address] Information not available 06/23/2020 How Much Tobacco Do You Chew? None Information not available 06/23/2020 What Is Your Code Status? DNR [email or web address] Information not available 02/02/2022 Are You Deaf Or Do You Have Serious Difficulty Hearing? No [email or web address] Information not available 02/02/2022 What Type Of Diet Are You Following? REGULAR [email or web address] Information not available 06/23/2020 Do You Have A Directive To Physicians? 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 0 Information not available 04/16/2016 Are There Any Guns Present In Your Home? Yes [email or web address] Information not available 06/23/2020 Hard Of Hearing Or Deaf In One Or Both Ears? No Information not available 02/07/2012 Single Or Multi-level [...] Pets Information not available 06/30/2017 Marital Status [email or web address] Informatio n not available 02/07/2012 Do You Have A Medical Power Of Support Team Assoc? Yes [email or web address] Information not available 02/02/2022 What Was The Date Of Your Most Recent Tobacco Screening? 02/02/2022 Information not available 02/02/2022 Do You Have An Out Of Hospital DNR? No [email or web address] Information not available 02/02/2022 Performs Monthly Self-breast Exam? No [email or web address] Information not available 02/07/2012 Do You Use Your Seat Belt Or Car Seat Routinely? Yes [email or web address] Information not available 06/23/2020 Seat Belts Used Routinely Yes [email or web address] Information not available 02/07/2012 Smoke Alarm In Home Yes Information not available 02/07/2012 How Much Tobacco Do You Smoke? 1 PPD [email or web address] Information not available 06/23/2020 General Stress Level Low [email or web address] Information not available 02/07/2012 Do You Use Sunscreen Routinely? No [email or web address] Information not available 06/23/2020 How Many Years Have You Smoked Tobacco? 20 [email or web address] Information not available 06/23/2020 Sex: Unknown Functional Status Question Answer Note LastModified by Organizat ion Details LastModified Time Do you have difficulty walking or climbing stairs? No [email or web address] Information not available 06/23/2020 Do you have difficulty doing errands alone? No [email or web address] Information not available 06/23/2020 Are you able to care for yourself? Yes [email or web address] Information not available 06/23/2020 Do you have difficulty dressing or bathing? No [email or web address] Information not available 06/23/2020 What is your exercise level? Occasional [email or web address] Information not available 06/23/2020 Mental Status Question Answer Note LastModified by Organization D etails LastModified Time Do you have difficulty concentrating, remembering or making decisions? No [email or web address] Information no t available 06/23/2020 Family History Relationship Description Onset Age of this Age Resolved Age Notes LastModified by Organization Details LastModified Time Mother Primary malignant neoplasm of pancreas [email or web address] Not available 2015 10:20:53 Medical History Condition [...] pneumococcal polysaccharide PPV23 8 completed Not Available [facility] 06/10/2022 00:28:19 Influenza, split virus, trivalent, preservative 2 completed Not Available [facility] 06/10/2022 00:28:19 Influenza, adjuvanted, quadrivalent, PF 1 completed Not Available [facility] 06/10/2022 00:28:19 influenza, unspecified formulation 2 completed Not Available [facility] 06/10/2022 00:28:19 influenza nasal, unspecified formulation 3 completed Not Available [facility] 06/10/2022 00:28:20 zoster live 3 completed Not Available [facility] 07/25/2022 00:15:24 Pneumococcal conjugate PCV 13 5 completed [facility] 03/31/2019 02:36:20 Influenza, high-dose, trivalent, PF 4 completed Not Available [facility] 06/10/2022 00:28:19 Tdap 4 completed Not Available [facility] 06/10/2022 00:28:19 zoster recombinant 0 completed Raj[place] [address] [place] [address] [address], [place], [address], [facility], [facility] 01/10/2020 19:09:16 Influenza, split virus, trivalent, preservative 2 completed Not Available [facility] 06/10/2022 00:28:20 zoster live 3 completed Not Available [facility] 06/10/2022 00:28:19 Novel [id number], all formulations 9 completed Not Available [facility] 07/25/2022 00:15:24 Influenza, high-dose, trivalent, PF 5 completed Not Available [facility] 06/10/2022 00:28:19 zoster recombinant 1 completed Rajiv [place] [address] [place] [address] [address], [place], [address], [facility], [facility] 06/13/2020 14:49:33 Influenza, high-dose, trivalent, PF 6 completed Not Available [facility] 06/10/2022 00:28:19 Novel [id number] 9 completed Not Available [facility] 06/10/2022 00:28:20 Influenza, high-dose, trivalent, PF 7 completed Not Available [facility] 06/10/2022 00:28:19 zoster live 3 completed Not Available [facility] 06/10/2022 00:28:19 influenza, unspecified formulation 8 completed [facility]22 00:28:19 Influenza, split virus, quadrivalent, preservative 9 completed Not Available [facility] 06/10/2022 00:28:19 Influenza, adjuvanted, quadrivalent, PF 0 completed Not Available [facility] 06/10/2022 00:28:19 Influenza, split virus, quadrivalent, preservative 6 completed Not Available [facility] 06/10/2022 00:28:19 Influenza, split virus, quadrivalent, preservative 0 completed Not Available [facility] 06/10/2022 00:28:19 Past Encounters Encounter ID Performer Location Encounter Start Date Encounter Closed Date Diagnosis/Indication Diagnosis SNOMED-CT Code Diagnosis ICD10 Code Diagnosis Note [id number] [facility] [address] [facility] [address] [place] [address] 02/07/2012 12:42:24 02/07/2012 13:34:51 [id number] Valeria Be OFFICE [address] [facility] [address] [place] [address] 03/01/2012 13:12:11 03/01/2012 13:44:13 [id number] Nicole Red OFFICE [address] [facility] [address] [place] [address] 03/15/2012 08:52:27 03/15/2012 09:42:59 [id number] Nicole Red OFFICE [address] [facility] n [facility] [address] [place] [address] 04/21/2012 10:08:03 04/21/2012 11:14:32 [id number] [address] [facility] [address] [place] [address] 06/19/2013 08:50:48 06/19/2013 10:07:41 Dyspnea 214257212 Asthma 462398104 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 068054631 Vitamin D deficiency 81019236 Hip pain 07147281 [id number] Valeria Be OFFICE [address] [place] [address] 07/09/2013 07:12:45 07/09/2013 07:51:45 Chronic obstructive pulmonary disease 42649382 Dyspnea 311625970 Hip pain 02665403 Vitamin D deficiency 58681380 [id number] Valeria Be OFFICE [address] [facility] [address] [place] [address] 07/09/2013 09:17:30 07/09/2013 09:29:33 Adult health examination [id number] OFFICE [address] [facility] [address] [place] [address] 01/01/2014 10:53:18 01/01/2014 12:55:01 Asthma 085877812 Chronic ob structive pulmonary disease 78233936 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 887746500 Disorder o f lipid metabolism 563455219 Vitamin D deficiency 18155679 [id number] OFFICE [address] [facility] [address] [place] [address] 02/12/2014 09:02:09 02/12/2014 09:35:29 Chronic obstructive pulmonary disease 73207877 Disorder o f lipid metabolism 306482664 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 105919900 Knee pain 48527875 [id number] Rajiv Red MD OFFICE [address] [facility] [address] [place] [address] 02/27/2014 14:57:59 02/27/2014 16:03:30 Chronic obstructive pulmonary disease 85904146 Knee pain 68780200 Vitamin D deficiency 44058747 Disorder o f lipid metabolism 477813183 [id number] ashly castillo OFFICE [address] [facility] [address] [place] [address] 03/19/2014 11:01:18 03/19/2014 11:26:52 Acute bronchitis 25696593 Chronic ob structive pulmonary disease 55130445 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 600760496 Disorder o f lipid metabolism 817181956 [id number] Rajiv Red MD OFFICE [address] [facility] [address] [place] [address] 05/20/2014 09:09:11 05/20/2014 10:01:17 Disorder of lipid metabolism 779871556 Chronic ob structive pulmonary disease 45243076 Vitamin D deficiency 14982598 Asthma 722551997 Tobacco de pendence syndrome 57802434 [id number] Rajiv Red MD OFFICE [address] [facility] [address] [place] [address] 02/12/2015 08:55:36 02/12/2015 10:04:31 Chronic obstructive pulmonary disease 87561958 J44.9 Disorder o f lipid metabolism 343082639 E78.9 Osteopenia 984993312 M85 .80 Tobacco de pendence syndrome 24315814 F17.290 Vitamin D deficiency 347 48068 E55.9 Asthma 292782963 J45.90 9 Lightheadedness 44697580 8 R42 [id number] PJ Da OFFICE [address] [facility] [address] [place] [address] 03/21/2015 10:17:14 03/21/2015 11:21:29 Acute bronchitis 42566680 J20.9 Cough 55000620 R05 Disorder o f lipid metabolism 704138807 E78.9 Chronic ob structive pulmonary disease 68296898 J44.9 Pneumonia 441945696 J18. 9 Tobacco de pendence syndrome 07360735 F17.290 [id number] Rajiv Red MD OFFICE [address] [facility] [address] [place] [address] 4 03/27/2015 10:09:59 03/27/2015 10:27:46 Adult health examination 550472185 Z00.00 [id number] Rajiv Red MD OFFICE [address] [place] [address] [address] [place] [address] 05/07/2015 10:12:00 05/07/2015 11:18:55 Chronic obstructive pulmonary disease 00348050 J44.9 Disorder o f lipid metabolism 025616905 E78.9 Tobacco de pendence syndrome 24118266 F17.290 Hip pain 56739889 M25.55 2 Lightheadedness 56853825 8 R42 Foot pain 30681091 M79.6 71 M79.672 [id number] Rajiv Red MD OFFICE [address] [facility] [address] [place] [address] 05/13/2015 09:28:39 05/13/2015 11:01:51 Pneumonia 912611348 J18.9 Chronic ob structive pulmonary disease 98360244 J44.9 Disorder o f lipid metabolism 118842090 E78.9 Multiple n odules of lung 826379983 R91.8 [id number] Rajiv Red MD OFFICE [address] [facility] [address] [place] [address] 05/19/2015 08:30:44 05/19/2015 08:49:36 Chronic obstructive pulmonary disease 72398464 J44.9 Cough 95026721 R05 Multiple n odules of lung 501476324 R91.8 Pneumonia 763469087 J18. 9 Disorder o f lipid metabolism 515240058 E78.9 Acute bronchitis 4222980 2 J20.9 [id number] Rajiv Red MD OFFICE [address] [facility] [address] [place] [address] 4 05/22/2015 12:11:39 05/22/2015 12:51:08 Disorder of lipid metabolism 927939098 E78.9 Chronic ob structive pulmonary disease 74603772 J44.9 Multiple n odules of lung 373085171 R91.8 Vitamin D deficiency 347 30850 E55.9 Acute bronchitis 5393762 2 J20.9 [id number] Rajiv Red MD OFFICE [address] [place] [address] [place] [address] 4 06/12/2015 08:39:02 06/12/2015 09:40:39 Acute bronchitis 53159146 J20.9 Chronic ob structive pulmonary disease 16613725 J44.9 Disorder o f lipid metabolism 510618522 E78.9 Vitamin D deficiency 347 47015 E55.9 Multiple n odules of lung 120700493 R91.8 [id number] Rajiv Red MD OFFICE [address] [place] [address] [address] [place] [address] 4 01/05/2016 10:13:33 01/05/2016 11:31:04 Disorder of lipid metabolism 265001989 E78.9 Chronic ob structive pulmonary disease 38027347 J44.9 Multiple n odules of lung 286821559 R91.8 Asthma 283177840 J45.90 9 Vitamin D deficiency 347 84511 E55.9 Disorder o f vitamin B12 297144951 E53.8 [id number] Rajiv Red MD OFFICE [address] [place] [address] [address] [place] [address] 4 01/23/2016 13:03:58 01/23/2016 14:09:20 Multiple nodules of lung 466986526 R91.8 Chronic ob structive pulmonary disease 17558472 J44.9 Body mass index 25-29 - overweight 873063913 Z68.29 Disorder o f lipid metabolism 994757032 E78.9 Disorder o f vitamin B12 205290970 E53.8 [id number] Rajiv Red MD OFFICE [address] [facility] [address] [place] [address] 4 01/26/2016 09:52:20 01/26/2016 10:16:13 Disorder of vitamin B12 478336732 E53.8 [id number] Rajiv Red MD OFFICE [address] [facility] [address] [place] [address] 4 02/02/2016 08:53:21 02/04/2016 13:44:02 Disorder of vitamin B12 338936866 E53.8 [id number] Rajiv Red MD OFFICE [address] [facility] [address] [place] [address] 4 02/09/2016 08:26:40 02/09/2016 08:35:58 Disorder of vitamin B12 913465828 E53.8 [id number] Rajiv Red MD OFFICE [address] [facility] [address] [place] [address] 4 02/16/2016 09:02:19 02/16/2016 14:15:36 Disorder of vitamin B12 589251655 E53.8 [id number] Rajiv Red MD OFFICE [address] [facility] [address] [place] [address] 4 03/16/2016 08:04:02 03/16/2016 08:21:59 Disorder of vitamin B12 395696410 E53.8 [id number] Rajiv Red MD OFFICE [address] [facility] [address] [place] [address] 4 03/26/2016 09:26:32 03/26/2016 10:58:10 Multiple nodules of lung 230846590 R91.8 Vitamin D deficiency 347 24320 E55.9 Disorder o f vitamin B12 482963102 E53.8 Body mass index 30+ - obesity 529221585 Z68.39 Chronic ob structive pulmonary disease 38106661 J44.9 Disorder o f lipid metabolism 782662565 E78.9 Osteopenia 728783971 M85 .80 Body mass index 25-29 - overweight 728095770 Z68.29 [id number] Rajiv Red MD OFFICE [address] [facility] [address] [place] [address] 4 04/16/2016 12:21:26 04/16/2016 12:30:59 Disorder of vitamin B12 066762709 E53.8 [id number] Rajiv Red MD OFFICE [address] [place] [address] [address] [place] [address] 4 05/12/2016 10:21:34 05/12/2016 10:58:42 Disorder of vitamin B12 868481562 E53.8 [id number] Rajiv Red MD OFFICE [address] [place] [address] [address] [place] [address] 4 06/14/2016 10:45:52 06/14/2016 11:04:52 Disorder of vitamin B12 856277214 E53.8 [id number] Rajiv Red MD OFFICE [address] [place] [address] [address] [place] [address] 4 06/22/2016 15:26:44 06/22/2016 16:46:13 Disorder of vitamin B12 128702731 E53.8 Disorder o f lipid metabolism 265031794 E78.9 Chronic ob structive pulmonary disease 81931712 J44.9 Body mass index 30+ - obesity 707094743 Z68.30 Depression screening 171 912786 Z13.89 Multiple n odules of lung 497017582 R91.8 [id number] Rajiv Red MD OFFICE [address] [place] [address] [address] [place] [address] 4 06/23/2016 08:02:28 06/23/2016 11:14:42 Adult health examination 249189823 Z00.00 [id number] Rajiv Red MD OFFICE [address] [place] [address] [address] [place] [address] 4 01/18/2017 09:26:16 01/18/2017 15:23:01 Disorder of vitamin B12 540991729 E53.8 [id number] Rajiv Red MD OFFICE [address] [place] [address] [address] [place] [address] 4 02/11/2017 14:00:48 02/11/2017 15:55:40 Disorder of lipid metabolism 947545199 E78.9 Vitamin D deficiency 347 27506 E55.9 Disorder o f vitamin B12 440548037 E53.8 Chronic ob structive pulmonary disease 51645927 J44.9 Long-term drug therapy 535181777 Z79.899 Body mass index 25-29 - overweight 437494098 Z68.29 Multiple n odules of lung 840181950 R91.8 Essential hypertension 47262791 I10 [id number] Rajiv Red MD OFFICE [address] [facility] [address] [place] [address] 02/25/2017 14:54:27 02/25/2017 15:59:32 Vitamin D deficiency 93045992 E55.9 Disorder o f lipid metabolism 132579351 E78.9 Chronic ob structive pulmonary disease 71721770 J44.9 Long-term drug therapy 784380359 Z79.899 Body mass index 25-29 - overweight 432143703 Z68.29 Essential hypertension 54932641 I10 Varicose v eins of lower extremity 29910255 I83.891 [id number] Rajiv Red MD OFFICE [address] [facility] [address] [place] [address] 03/15/2017 08:16:31 03/15/2017 09:06:18 Essential hypertension 67368324 I10 Disorder o f lipid metabolism 133024043 E78.9 Long-term drug therapy 660557396 Z79.899 Body mass index 25-29 - overweight 720041925 Z68.29 Disorder o f vitamin B12 298209565 E53.8 Venous varices 583164832 I83.92 Cough 44134246 R05 438127 Elizabeth Koo OFFICE [address] [facility] [address] [place] [address] 4 03/30/2017 13:50:57 03/30/2017 14:45:39 Essential hypertension 97785433 I10 Long-term drug therapy 085320024 Z79.899 Body mass index 25-29 - overweight 086217206 Z68.29 [id number] Rajiv Red MD OFFICE [address] [facility] [address] [place] [address] 4 04/08/2017 08:58:00 04/08/2017 09:46:13 Disorder of vitamin B12 362383134 E53.8 [id number] Rajiv Red MD OFFICE [address] [facility] [address] [place] [address] 4 04/26/2017 14:31:07 04/26/2017 15:38:55 Disorder of lipid metabolism 877285441 E78.9 Disorder o f vitamin B12 634087139 E53.8 Multiple n odules of lung 493457210 R91.8 Chronic ob structive pulmonary disease 41480474 J44.9 Essential hypertension 62537434 I10 Long-term drug therapy 087341339 Z79.899 Body mass index 25-29 - overweight 672066158 Z68.29 [id number] Rajiv Red MD OFFICE [address] [facility] [address] [place] [address] 4 05/05/2017 07:13:09 05/05/2017 07:53:43 Multiple nodules of lung 187236636 R91.8 Chronic ob structive pulmonary disease 25548644 J44.9 Essential hypertension 40821423 I10 Disorder o f lipid metabolism 167182526 E78.9 Long-term drug therapy 560587929 Z79.899 Depression screening 171 905223 Z13.89 Body mass index 30+ - obesity 008778576 Z68.30 [id number] Elizabeth Hayes OFFICE [address] [facility] [address] [place] [address] 4 05/13/2017 11:15:47 05/13/2017 13:25:11 Disorder of vitamin B12 675524251 E53.8 [id number] Rajiv Red MD OFFICE [address] [facility] [address] [place] [address] 4 06/03/2017 08:03:43 06/03/2017 09:09:35 Multiple nodules of lung 664818296 R91.8 Chronic ob structive pulmonary disease 77187913 J44.9 Essential hypertension 83972304 I10 Long-term drug therapy 463621018 Z79.899 Body mass index 25-29 - overweight 268951382 Z68.29 Disorder o f lipid metabolism 593501547 E78.9 Blurring o f visual image 556288852 H53.8 Cough 38617473 R05 [id number] Rajiv Red MD OFFICE [address] [facility] [address] [place] [address] 4 06/17/2017 08:53:22 06/17/2017 10:04:12 Multiple nodules of lung 597837010 R91.8 Chronic ob structive pulmonary disease 15752696 J44.9 Disorder o f lipid metabolism 518587673 E78.9 Essential hypertension 07950309 I10 Long-term drug therapy 556749457 Z79.899 Body mass index 30+ - obesity 249641614 Z68.31 Disorder o f vitamin B12 039819260 E53.8 [id number] Rajiv Red MD OFFICE [address] [facility] [address] [place] [address] 4 06/29/2017 07:08:07 06/29/2017 07:53:52 Multiple nodules of lung 776708036 R91.8 Chronic ob structive pulmonary disease 15969105 J44.9 Essential hypertension 67288757 I10 Long-term drug therapy 823422166 Z79.899 Body mass index 25-29 - overweight 477664936 Z68.29 Venous varices 915372936 I83.92 Dizziness 684811626 R42 Orthostati c hypotension 45895035 I95.1 [id number] Rajiv Red MD OFFICE [address] [place] [address] Road [address] [place] [address] 4 06/30/2017 08:35:51 06/30/2017 14:42:18 Adult health examination 351281263 Z00.00 [id number] Rajiv Red MD OFFICE [address] [facility] [address] [place] [address] 4 07/07/2017 08:26:41 07/07/2017 09:15:58 Essential hypertension 73299919 I10 Disorder o f lipid metabolism 688944530 E78.9 Chronic ob structive pulmonary disease 97251994 J44.9 Disorder o f vitamin B12 047816850 E53.8 Long-term drug therapy 247924453 Z79.899 Body mass index 30+ - obesity 430528408 Z68.30 Venous varices 530941297 I83.90 Multiple n odules of lung 145743672 R91.8 Orthostati c hypotension 11397466 I95.1 Impacted cerumen 0116246 6 H61.21 [id number] Rajiv Red MD OFFICE [address] [facility] [address] [place] [address] 4 07/11/2017 10:36:49 07/11/2017 11:15:16 Essential hypertension 13681204 I10 Disorder o f lipid metabolism 908693309 E78.9 Disorder o f vitamin B12 481975937 E53.8 Chronic ob structive pulmonary disease 54788616 J44.9 Long-term drug therapy 770597191 Z79.899 Body mass index 30+ - obesity 244411517 Z68.30 Impacted cerumen 2147592 6 H61.21 [id number] Rajiv Red MD OFFICE [address] [place] [address] Road [address] [place] [address] 4 01/06/2018 09:38:16 01/06/2018 11:29:37 Essential hypertension 20478591 I10 Disorder o f lipid metabolism 602250322 E78.9 Chronic ob structive pulmonary disease 93261099 J44.9 Vitamin D deficiency 347 50226 E55.9 Tobacco de pendence syndrome 91740818 F17.290 Long-term drug therapy 567117130 Z79.899 Body mass index 30+ - obesity 145339201 Z68.30 Disorder o f vitamin B12 351511239 E53.8 Multiple n odules of lung 535367860 R91.8 Venous varices 870014507 I83.92 Dizziness 819756275 R42 Orthostati c hypotension 70492480 I95.1 [id number] Rajiv Red MD OFFICE [address] [place] [address] Road [address] [place] [address] 4 01/19/2018 15:36:10 01/20/2018 09:41:13 Essential hypertension 46305663 I10 Disorder o f lipid metabolism 963011092 E78.9 Dizziness 075964485 R42 Chronic ob structive pulmonary disease 95673796 J44.9 Asthma 189607709 J45.90 9 Long-term drug therapy 866502467 Z79.899 Body mass index 30+ - obesity 662356778 Z68.30 Multiple n odules of lung 161389356 R91.8 Disorder o f vitamin B12 296987593 E53.8 Venous varices 765398895 I83.92 Vertigo 961394924 R42 Orthostati c hypotension 71584282 I95.1 Syncope 464932535 R55 [id number] Rajiv Red MD OFFICE [address] [place] [address] Road [address] [place] [address] 4 02/06/2018 13:57:44 02/06/2018 15:34:36 Essential hypertension 82511917 I10 Vertigo 071641742 R42 Dizziness 350137735 R42 Syncope 423443221 R55 Chronic ob structive pulmonary disease 48622456 J44.9 Orthostati c hypotension 74333621 I95.1 Long-term drug therapy 851767020 Z79.899 Body mass index 30+ - obesity 242968502 Z68.31 Disorder o f vitamin B12 708156003 E53.8 Multiple n odules of lung 119463569 R91.8 Pulmonary hypertension 01564615 I27.20 Palpitations 09455246 R0 0.2 [id number] Rajiv Red MD OFFICE [address] [place] [address] Road [address] [place] [address] 4 02/27/2018 14:40:20 02/27/2018 15:09:24 Essential hypertension 88975168 I10 Chronic ob structive pulmonary disease 55853522 J44.9 Tobacco de pendence syndrome 54044075 F17.290 Vertigo 891878006 R42 Long-term drug therapy 761775333 Z79.899 Body mass index 30+ - obesity 699393773 Z68.31 Supraventr icular tachycardia 9252008 I47.1 Ventricula r tachycardia 49817028 I47.2 Lightheadedness 47905081 8 R42 Syncope 603972354 R55 [id number] Rajiv Red MD OFFICE [address] [place] [address] Road [address] [place] [address] 4 03/30/2018 13:43:09 03/30/2018 15:08:43 Chronic obstructive pulmonary disease 44005218 J44.9 Essential hypertension 48955179 I10 Disorder o f lipid metabolism 690502919 E78.9 Long-term drug therapy 306964453 Z79.899 Body mass index 30+ - obesity 550531831 Z68.31 Depression screening 171 658243 Z13.89 Syncope 196566321 R55 Supraventr icular tachycardia 8836983 I47.1 Ventricula r tachycardia 00418841 I47.2 Disorder o f vitamin B12 685746619 E53.8 [id number] Rajiv Red MD OFFICE [address] [place] [address] [address] [place] [address] 4 05/19/2018 08:52:38 05/19/2018 10:36:23 Chronic obstructive pulmonary disease 72999369 J44.9 Stable. Continue inhalers. Continue follow-up with pulmonary. Disorder o f lipid metabolism 984074567 E78.9 Stable on statin therapy. No change in regimen. Screening abdominal aortic aneurysm performed in office today. Results revealed aorta < 3cm. These results were discussed and reviewed with the patient. Multiple n odules of lung 996620152 R91.8 Stable. Continue follow-up with pulmonary. Body mass index 30+ - obesity 630154781 Z68.30 Down 6 lbs. The patient is to work on weight with proper diet and exercise. Patient knows to eat a low sodium, low cholestero l and low carbohydra te diet. Patient is to stay active and exercise at least 30 to 45 minutes 3-5 times a week or as best tolerated. Patient understand s and agrees to the plan. Long-term drug therapy 206861387 Z79.899 Disorder o f vitamin B12 722063528 E53.8 Stable. Continue supplement s. Received injection today. Given by MA. Essential hypertension 35960779 I10 Stable. Continue current regimen. Cough 94355127 R05 New onset dry cough Began after [...] pulmonary also if no better after changes. [id number] Rajiv Red MD OFFICE [address] [facility] [address] [place] [address] 06/08/2018 09:39:23 06/08/2018 10:49:58 Supraventricular tachycardia 3112670 I47.1 HR stable on lower dose of BB Essential hypertension 93836918 I10 Stable. Continue current regimen. Chronic ob structive pulmonary disease 70817669 J44.9 Stable. Continue inhalers. Continue follow-up with pulmonary. Multiple n odules of lung 737166925 R91.8 Stable. Continue follow-up with pulmonary. Disorder o f lipid metabolism 861947446 E78.9 Stable on statin therapy. Continue regimen. Body mass index 30+ - obesity 684893774 Z68.31 Was down 6lbs but now up [...] agrees to the plan. Long-term drug therapy 039583352 Z79.899 Cough 85966816 R05 Recent new onset dry cough This [...] Discussed following up with her PCP [facility] [place]. We will see her back in 1 month prior to going home. [id number] Rajiv Red MD OFFICE [address] [place] [address] [address] [place] [address] 07/06/2018 09:52:07 07/06/2018 10:52:31 Disorder of vitamin B12 955718958 E53.8 Stable. Continue supplement s. Received injection today. Given by [facility]. Disorder o f lipid metabolism 122043178 E78.9 Stable on statin therapy. Continue regimen. Essential hypertension 88912039 I10 Stable. Continue current regimen. Chronic ob structive pulmonary disease 32682673 J44.9 Stable. Continue inhalers. Continue follow-up with pulmonary. Long-term drug therapy 033521191 Z79.899 Body mass index 30+ - obesity 255502190 Z68.30 Was down 6lbs but now up [...] to the plan. Alcohol co nsumption screening 514798771 Z13.89 Leukopenia 69195068 D72. 819 New onset at 4.1. B12 low normal. No B symptoms. Going [facility] [place]. Suggest repeat lab with provider [place]. [id number] Rajiv Red MD OFFICE [address] [facility] [address] [place] [address] 01/08/2019 15:31:45 01/08/2019 16:48:07 Essential hypertension 98399896 I10 Disorder o f lipid metabolism 709558481 E78.9 Supraventr icular tachycardia 1956116 I47.1 Long-term drug therapy 647187884 Z79.899 Body mass index 30+ - obesity 762234180 Z68.30 Fatigue 06398126 R53.83 [id number] Rajiv Red MD OFFICE [address] [facility] [address] [place] [address] 03/12/2019 14:09:18 03/12/2019 14:47:08 Essential hypertension 15550784 I10 Chronic ob structive pulmonary disease 91474569 J44.9 Disorder o f lipid metabolism 054212319 E78.9 Asthma 347792990 J45.90 9 Supraventr icular tachycardia 2412064 I47.1 Leukopenia 56123092 D72. 819 Long-term drug therapy 263542710 Z79.899 Body mass index 30+ - obesity 357105019 Z68.30 Disorder o f vitamin B12 614021534 E53.8 Serum crea tinine above reference range 961211364 R79.89 [id number] Rajiv Red MD OFFICE [address] [facility] [address] [place] [address] 4 03/16/2019 14:26:34 03/16/2019 14:34:38 Adult health examination 870576013 Z00.00 [id number] Rajiv Red MD OFFICE [address] [facility] [address] [place] [address] 04/03/2019 09:59:30 04/03/2019 11:07:46 Disorder of lipid metabolism 218556167 E78.9 Essential hypertension 90239524 I10 Chronic ob structive pulmonary disease 68862192 J44.9 Long-term drug therapy 905496790 Z79.899 Body mass index 30+ - obesity 423788887 Z68.31 Depression screening 171 929280 Z13.89 Acute bronchitis 6467466 2 J20.9 Influenza 0678373 J11.1 [id number] Rajiv Red MD OFFICE [address] [place] [address] Road [address] [place] [address] 4 04/04/2019 09:51:52 04/04/2019 11:31:27 Essential hypertension 64773804 I10 Disorder o f lipid metabolism 075013814 E78.9 Leukopenia 10852263 D72. 819 Supraventr icular tachycardia 2087900 I47.1 Chronic ob structive pulmonary disease 26213552 J44.9 Asthma 845094190 J45.90 9 Long-term drug therapy 248886788 Z79.899 Body mass index 30+ - obesity 973576927 Z68.31 Acute bronchitis 5645751 2 J20.9 [id number] Rajiv Red MD OFFICE [address] [place] [address] Road [address] [place] [address] 4 04/11/2019 10:21:30 04/11/2019 11:17:17 Supraventricular tachycardia 4161888 I47.1 Pulmonary hypertension 54598908 I27.20 Essential hypertension 03994946 I10 Disorder o f lipid metabolism 866715099 E78.9 Chronic ob structive pulmonary disease 20713070 J44.9 Asthma 993772437 J45.90 9 Long-term drug therapy 045828315 Z79.899 Body mass index 30+ - obesity 018992939 Z68.31 Disorder o f vitamin B12 959720852 E53.8 Acute bronchitis 0155106 2 J20.9 [id number] Rajiv Red MD OFFICE [address] [place] [address] [address] [place] [address] 4 04/17/2019 13:10:14 04/17/2019 13:54:22 Supraventricular tachycardia 4819449 I47.1 Pulmonary hypertension 13842185 I27.20 Essential hypertension 29327097 I10 Chronic ob structive pulmonary disease 74344318 J44.9 Asthma 708787478 J45.90 9 Long-term drug therapy 171544443 Z79.899 Body mass index 30+ - obesity 726839312 Z68.31 Serum crea tinine above reference range 583976636 R79.89 [id number] Rajiv Red MD OFFICE [address] [place] [address] Road [address] [place] [address] 4 04/23/2019 10:07:34 04/23/2019 11:08:58 Essential hypertension 72578750 I10 Disorder o f lipid metabolism 874667583 E78.9 Chronic ob structive pulmonary disease 28728192 J44.9 Long-term drug therapy 186172911 Z79.899 Body mass index 30+ - obesity 205946471 Z68.32 Serum crea tinine above reference range 785799463 R79.89 [id number] Rajiv Red MD OFFICE [address] [facility] [address] [place] [address] 05/14/2019 09:57:03 05/14/2019 11:08:01 Chronic kidney disease stage 3 218166353 N18.3 Supraventr icular tachycardia 9993488 I47.1 Disorder o f lipid metabolism 792362271 E78.9 Long-term drug therapy 588665150 Z79.899 Body mass index 30+ - obesity 750729628 Z68.32 Disorder o f vitamin B12 322851059 E53.8 Essential hypertension 37888201 I10 [id number] Rajiv Red MD OFFICE [address] [facility] [address] [place] [address] 06/04/2019 14:27:13 06/04/2019 15:17:08 Chronic kidney disease stage 3 645965104 N18.3 Disorder o f lipid metabolism 762211849 E78.9 Multiple n odules of lung 485172807 R91.8 Essential hypertension 96730679 I10 Long-term drug therapy 941521205 Z79.899 Body mass index 30+ - obesity 152107628 Z68.32 Cyst of kidney 037857492 N28.1 [id number] Rajiv Red MD OFFICE [address] [facility] [address] [place] [address] 4 07/09/2019 10:03:21 07/09/2019 10:46:10 Disorder of vitamin B12 082857501 E53.8 Essential hypertension 97661636 I10 Chronic ki dney disease stage 3 024098112 N18.3 Supraventr icular tachycardia 8987481 I47.1 Cyst of kidney 042652000 N28.1 Chronic ob structive pulmonary disease 63438946 J44.9 Long-term drug therapy 862477225 Z79.899 Body mass index 30+ - obesity 213115322 Z68.31 Pulmonary hypertension 69440759 I27.20 Fatigue 64967084 R53.83 [id number] Rajiv Red MD OFFICE [address] [place] [address] [address] [place] [address] 4 08/07/2019 12:36:55 08/07/2019 12:59:54 Disorder of vitamin B12 425910886 E53.8 [id number] Rajiv Red MD OFFICE [address] [place] [address] [address] [place] [address] 4 01/07/2020 10:37:53 01/07/2020 11:49:16 Essential hypertension 82622425 I10 Disorder o f vitamin B12 639586313 E53.8 Chronic ki dney disease stage 3 037526351 N18.31 Supraventr icular tachycardia 8536111 I47.1 Cyst of kidney 315416083 N28.1 Chronic ob structive pulmonary disease 41525083 J44.9 Pulmonary hypertension 90806899 I27.20 Long-term drug therapy 435703991 Z79.899 Body mass index 30+ - obesity 674697775 Z68.30 Disorder o f lipid metabolism 948749948 E78.9 Asthma 829504540 J45.90 9 Osteopenia 489316815 M85 .80 Alcohol co nsumption screening 811715514 Z13.89 Screening for osteoporosis 874393213 Z13.820 Normal grief reaction 27 5499781 F43.20 [id number] Rajiv Red MD OFFICE [address] [place] [address] [address] [place] [address] 4 01/10/2020 14:48:12 01/10/2020 15:05:35 Vitamin deficiency 96360625 E56.9 Immunization due 9400907 08 Z28.3 [id number] Rajiv Red MD OFFICE [address] [place] [address] [address] [place] [address] 4 02/21/2020 10:57:27 02/21/2020 12:11:59 Essential hypertension 00100743 I10 Supraventr icular tachycardia 3643196 I47.1 Cyst of kidney 714778373 N28.1 Pulmonary hypertension 63835017 I27.20 Osteopenia 992501263 M85 .80 Long-term drug therapy 961250226 Z79.899 Steatosis of liver 1007 K76.0 Gallstone 213706074 K80. 20 Computed t omography result abnormal 026407581 R93.89 Body mass index 25-29 - overweight 696565985 Z68.29 Vitamin deficiency 19153 002 E56.9 [id number] Rajiv Red MD OFFICE [address] [place] [address] [address] [place] [address] 4 03/11/2020 11:34:04 03/11/2020 12:10:06 Disorder of vitamin B12 168998846 E53.8 [id number] Rajiv Red MD OFFICE [address] [place] [address] [address] [place] [address] 4 04/03/2020 10:24:31 04/03/2020 11:24:03 Depression screening 714967069 Z13.89 Essential hypertension 81051665 I10 Supraventr icular tachycardia 3583464 I47.1 Cyst of kidney 306561014 N28.1 Long-term drug therapy 283916863 Z79.899 Pulmonary hypertension 31617232 I27.20 Steatosis of liver 1007 K76.0 Computed t omography result abnormal 786058797 R93.89 Body mass index 25-29 - overweight 230557107 Z68.29 [id number] Rajiv Red MD OFFICE [address] [place] [address] [address] [place] [address] 4 04/21/2020 09:07:20 04/21/2020 09:18:52 Disorder of vitamin B12 137038385 E53.8 [id number] Rajiv Red MD OFFICE [address] [place] [address] [address] [place] [address] 05/05/2020 10:38:03 05/05/2020 12:05:36 Essential hypertension 62611175 I10 Supraventr icular tachycardia 9732455 I47.1 Cyst of kidney 608762941 N28.1 Pulmonary hypertension 05871589 I27.20 Steatosis of liver 1007 K76.0 Computed t omography result abnormal 489248435 R93.89 Long-term drug therapy 898865850 Z79.899 Body mass index 25-29 - overweight 006037700 Z68.29 Chronic ob structive pulmonary disease 04021896 J44.9 Chronic ki dney disease stage 3 406670658 N18.31 [id number] Rajiv Red MD OFFICE [address] [facility] [address] [place] [address] 05/06/2020 16:22:20 05/06/2020 16:32:54 Adult health examination 418043139 Z00.00 [id number] Rajiv Red MD OFFICE [address] [facility] [address] [place] [address] 05/07/2020 10:07:49 05/07/2020 11:02:47 Essential hypertension 04226965 I10 Long-term drug therapy 142725130 Z79.899 Exposure t o coronavirus infection 686146098 Z20.828 I wore proper PPE to examine patient. Limited physical exam due to COVID-19 infection to limit transmissi on of disease. Was able to contain enough informatio n by data review and discussion . Supraventr icular tachycardia 3819480 I47.1 Cyst of kidney 136734864 N28.1 Body mass index 25-29 - overweight 606791465 Z68.29 [id number] Rajiv Red MD OFFICE [address] [facility] [address] [place] [address] 05/29/2020 10:46:02 05/29/2020 12:10:28 Long-term drug therapy 372020413 Z79.899 Body mass index 25-29 - overweight 191701982 Z68.29 Essential hypertension 59363865 I10 Supraventr icular tachycardia 2962806 I47.1 COVID-19 157713726 U07.1 [id number] Rajiv Red MD OFFICE [address] [place] [address] 06/13/2020 14:41:47 06/13/2020 15:00:46 Active or passive immunization 395444715 Z23 [id number] Rajiv Red MD OFFICE [address] [place] [address] 4 06/23/2020 11:17:43 06/23/2020 12:12:30 Essential hypertension 20607041 I10 Cyst of kidney 296916296 N28.1 Pulmonary hypertension 14960298 I27.20 Computed t omography result abnormal 899155303 R93.89 Chronic ki dney disease stage 3 400891946 N18.31 Long-term drug therapy 089087919 Z79.899 Body mass index 25-29 - overweight 435906521 Z68.29 Disorder o f lipid metabolism 501137430 E78.9 Microscopic hematuria 19 6680433 R31.29 [id number] Rajiv Red MD OFFICE [address] [facility] [address] [place] [address] 01/05/2021 10:30:30 01/05/2021 11:25:07 Cyst of kidney 950640113 N28.1 renal ultrasound from her 2020 much improved Pulmonary hypertension 31053781 I27.20 likely result of COPD noted on echo Chronic ki dney disease stage 3 752984286 N18.31 follow-up labs avoid nephrotoxi ns Essential hypertension 75197321 I10 on olmesartan no dizziness or syncope Disorder o f lipid metabolism 327954580 E78.9 no myalgias or arthralgia s continue current approach Chronic ob structive pulmonary disease 20813384 J44.9 doing well no recent exacerbati on did give Covid 19 vaccine Disorder o f vitamin B12 [id number] E53.8 Body mass index 30+ - obesity 899824080 Z68.30 Long-term drug therapy 825992367 Z79.899 Fatigue 12395411 R53.83 Venous varices 209748428 I83.[address] Melo vascular surgery [id number] Rajiv Red MD OFFICE [address] [facility] [address] [place] [address] 03/02/2021 10:21:34 03/02/2021 11:15:57 Pulmonary hypertension 89551836 I27.20 03/02/21 Continue to follow with pulmonolog y for monitoring Disorder o f lipid metabolism 400951248 E78.9 03/02/21 Triglyceri prabhakar are elevated at 119 and LDL is elevated at 1 discussed low sugar, low-carb diet and routine exercise for improvemen t of these levels. Patient understood and agreed. Long-term drug therapy 883240885 Z79.899 Essential hypertension 82374450 I10 03/02/21 Blood pressure stable at today's visit with a reading of 122/78. Chronic ki dney disease stage 3 903998461 N18.31 03/02/21 Stable at this time. Continue to monitor with interval labs Cyst of kidney 465707952 N28.1 03/02/21 renal ultrasound from her 2020 much improved Body mass index 30+ - obesity 696613302 Z68.30 Chronic ob structive pulmonary disease 79400090 J44.9 03/02/21 Stable at this time. Continue to follow with pulmonolog y Disorder o f vitamin B12 730647135 E53.8 03/02/21 continue supplement ation Venous varices 769217712 I83.92 03/02/21 saw vascular surgery on 01/12/2021 for venous varices they recommende d conservati ve therapy at this time. Patient will keep legs elevated and wear compressio n stockings at this time. She will continue to follow with vascular surgery at this time. At [facility] risk for falls 822660910 Z91.81 declined PT Multiple n odules of lung 988223201 R91.8 03/02/21 saw pulmonolog y on 01/26/2021 . Patient has a history of lung nodules and recent chest CT showed no changes to the nodules at this time. She will continue to follow with pulmonolog y and will continue to have chest CTs annually. [id number] Rajiv Red MD OFFICE [id number] [place] [address] [address] [place] [address] 04/09/2021 13:55:51 04/09/2021 14:43:32 Disorder of vitamin B12 497435683 E53.8 Patient continue with B12 injections . She is doing well at this time. Continue with the regimen. Pulmonary hypertension 61192216 I27.20 Stable. Patient denies any cough shortness of breath or chest pain. Body mass index 30+ - obesity 589937022 Z68.30 Disorder o f lipid metabolism 610510171 E78.9 Stable. Although total cholestero l and HDL within the range, patient has high triglyceri prabhakar at 192 and LDL 101. She is taking no statin at this time. Patient declines further medical therapy. Long-term drug therapy 960707589 Z79.899 Essential hypertension 31567924 I10 Stable. Blood pressure today 116/64 at goal. Continue on present therapy. Chronic ki dney disease stage 3 965242278 N18.31 Stable. Her last GFR creatinine 1.01 and GFR 51 stable at this time we will continue monitoring . Patient is asymptomat ic at this time Acute cystitis 10064647 N30.00 New onset. Patient very symptomati c for the past few days. Patient advised to stop medical therapy on Macrobid milligrams twice daily for the next 5 days. I also advised on increase the water cranberry juice probiotics and avoid any irritants such as alcohol or coffee. Patient verbalizes understand ing. We will send out for culture Depression screening 171 500055 Z13.31 [id number] Rajiv Red MD OFFICE [address] [place] [address] [address] [place] [phone] 05/20/2021 13:32:00 05/20/2021 14:38:07 Disorder of vitamin B12 758798303 E53.8 03/02/21 continue supplement ation [id number] Rajiv Red MD OFFICE [address] [place] [address] [address] [place] [address] 05/28/2021 13:46:18 05/28/2021 15:22:50 Pulmonary hypertension 03027434 I27.20 05/28/21 stable. continue to monitor for symptoms Body mass index 30+ - obesity 591175396 Z68.30 05/28/21 continue to work on weight reduction Disorder o f lipid metabolism 027335451 E78.9 05/28/21 Not currently on statin therapy. Continue to control with diet and exercise Long-term drug therapy 393910135 Z79.899 Essential hypertension 25182840 I10 05/28/21 Blood pressure stable today with a reading of 128/70. Chronic ki dney disease stage 3 599962481 N18.31 05/28/21 stable. continue to monitor with interval labs Cyst of kidney 978276109 N28.1 05/28/21 continues to follow with Dr. Feliz from urology who monitors it. She also informs me that she has an appointmen t coming up with him at the beginning of June. Acute cystitis 39673718 N30.00 05/28/21 Resolved New onset. Patient very [...] for culture Disorder o f vitamin B12 115705591 E53.8 05/28/21 continue supplement ation Patient continue with B12 injections . She is doing well at this time. Continue with the regimen. Multiple n odules of lung 858709530 R91.8 05/28/21 continue to follow with Dr. Rodriguez with pulmonolog y for monitoring 03/02/21 saw pulmonolog y on 01/26/2021 . Patient has a history of lung nodules and recent chest CT showed no changes to the nodules at this time. She will continue to follow with pulmonolog y and will continue to have chest CTs annually. Chronic ob structive pulmonary disease 71163179 J44.9 05/28/21 Stable at this time. Continue to follow with Dr. Rodriguez with pulmonolog y Venous varices 568778564 I83.92 05/28/21 Continues to follow with Dr. Melo for monitoring 03/02/21 saw vascular surgery on 01/12/2021 for venous varices they recommende d conservati ve therapy at this time. Patient will keep legs elevated and wear compressio n stockings at this time. She will continue to follow with vascular surgery at this time. Fatigue 15616871 R53.83 [id number] Rajiv Red MD OFFICE [address] [facility] [address] [place] [address] 06/16/2021 14:41:05 06/16/2021 15:00:52 Disorder of vitamin B12 078368809 E53.8 05/28/21 continue supplement ation Patient continue with B12 injections . She is doing well at this time. Continue with the regimen. [id number] Rajiv Red MD OFFICE [address] [facility] [address] [place] [address] 09/23/2021 13:15:01 09/23/2021 13:47:12 Pulmonary hypertension 28083347 I27.20 Body mass index 30+ - obesity 117424719 Z68.30 09/22/21 continue to work on weight reduction Disorder o f lipid metabolism 417712363 E78.9 09/22/21 Not currently on statin therapy. Continue to control with diet and exercise Long-term drug therapy 079019308 Z79.899 Essential hypertension 95238123 I10 09/22/21 Continue current antihypert ensive medication regimen Chronic ki dney disease stage 3 769051109 N18.31 09/22/21 Stable. Continue to monitor with interval labs Cyst of kidney 447475774 N28.1 09/22/21 Continue to follow with urology for monitoring 05/28/21 continues to follow with Dr. Feliz from urology who monitors it. She also informs me that she has an appointmen t coming up with him at the beginning of June. Multiple n odules of lung 255868392 R91.8 09/22/21 continue to follow with Dr. Rodriguez with pulmonolog y for monitoring 03/02/21 saw pulmonolog y on 01/26/2021 . Patient has a history of lung nodules and recent chest CT showed no changes to the nodules at this time. She will continue to follow with pulmonolog y and will continue to have chest CTs annually. Chronic ob structive pulmonary disease 36398135 J44.9 09/22/21 Stable at this time. Continue to follow with Dr. Rodriguez with pulmonolog y Venous varices 589249790 I83.92 09/22/21 Continues to follow with Dr. Melo for monitoring 03/02/21 saw vascular surgery on 01/12/2021 for venous varices they recommende d conservati ve therapy at this time. Patient will keep legs elevated and wear compressio n stockings at this time. She will continue to follow with vascular surgery at this time. Disorder o f vitamin B12 273219806 E53.8 09/22/21 continue supplement ation Patient continue with B12 injections . She is doing well at this time. Continue with the regimen. [id number] LIAM CARBALLO OFFICE [address] [facility] [address] [place] [address] 01/01/2022 10:02:06 01/01/2022 11:39:22 Essential hypertension 55616948 I10 01/01/2022 : Asymptomat ic. Stable. Controlled . Continue current medication regimen. Maintain low-sodium diet. 09/22/21 Continue current antihypert ensive medication regimen Multiple n odules of lung 605885331 R91.8 01/01/2022 : Patient continues to be [...] CTs annually. 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 No red flag symptoms. Continue current regimen. Recheck lipid panel. 09/22/21 Not currently on statin therapy. Continue to control with diet and exercise Chronic ob structive pulmonary disease 00148794 J44.9 01/01/2022 : Mildly worsening dyspnea on exertion since returning recently from [facility]. Patient has upcoming appointmen t with pulmonolog y in a few weeks. In the meantime, patient's Proventil is refilled. 09/22/21 Stable at this time. Continue to follow with Dr. Rodriguez with pulmonolog y Venous varices 107326889 I83.92 01/01/2022 : Patient seen by vascular [...] time. Chronic ki dney disease stage 3 968374900 N18.31 01/01/2022 : Stable. Stay well-hydra ivonne. Avoid nephrotoxi ns. CMP. 09/22/21 Stable. Continue to monitor with interval labs Body mass index 30+ - obesity 552460727 Z68.30 09/22/21 continue to work on weight reduction Long-term drug therapy 936687077 Z79.899 Asthma 704398872 J45.90 9 Alcohol co nsumption screening 151620672 Z13.89 Rheumatoid arthritis 698 03924 M06.9 01/01/2022 : Recently seen by rheumatkiarra howard in [facility]. received corticoste roid injection to the right wrist. Patient notes marked improvemen t. Patient also notes injection bilateral knees also marked improvemen t. [id number] LIAM CARBALLO OFFICE [address] [facility] [address] [place] [address] 01/13/2022 13:25:52 01/13/2022 14:45:07 Disorder of vitamin B12 054388970 E53.8 [id number] LIAM CARBALLO OFFICE [address] [facility] [address] [place] [address] 02/02/2022 10:21:39 02/02/2022 11:40:13 Essential hypertension 88636729 I10 02/02/2022 : Stable. Controlled . Asymptomat ic. Continue current medication regimen. 01/01/2022 : Asymptomat ic. Stable. Controlled . Continue current medication regimen. Maintain low-sodium diet. 09/22/21 Continue current antihypert ensive medication regimen Multiple n odules of lung 028006049 R91.8 02/02/2022 : Recently seen by pulmonolog [...] CTs annually. Disorder o f lipid metabolism 906557410 E78.9 02/02/2022 : Remains asymptomat ic. Lipid panel reviewed. Well-contr olled at goal. Continue current medication regimen. 01/01/2022 : Asymptomat ic. No red flag symptoms. Continue current regimen. Recheck lipid panel. 09/22/21 Not currently on statin therapy. Continue to control with diet and exercise Chronic ki dney disease stage 3 658590670 N18.31 02/02/2022 : Improved. EGFR now at 58. Patient is advised to stay well-hydra ivonne and avoid nephrotoxi ns. 01/01/2022 : Stable. Stay well-hydra ivonne. Avoid nephrotoxi ns. CMP. 09/22/21 Stable. Continue to monitor with interval labs Chronic ob structive pulmonary disease 07529569 J44.9 02/02/2022 : Stable. Recently seen by pulmonolog y. No changes. Doing well overall. Follow-up with pulmonolog y as scheduled, will follow along. 01/01/2022 : Mildly worsening dyspnea on exertion since returning recently from [facility]. Patient has upcoming appointmen t with pulmonolog y in a few weeks. In the meantime, patient's Proventil is refilled. 09/22/21 Stable at this time. Continue to follow with Dr. Rodriguez with pulmonolog y Body mass index 30+ - obesity 451872030 Z68.30 09/22/21 continue to work on weight reduction Advance care planning 71 4015761 Z71.89 has plan/dnr Epigastric pain 69958923 R10.13 02/02/2022 : New onset. Patient notes that she is experience d this for over 20 years . No associatio n with food or lying down. This can be seen in the clinic setting of esophageal spasm. Stop famotidine . Follow-up in 28 days. [id number] Rajiv Red MD OFFICE [address] [facility] [address] [place] [address] 02/17/2022 15:21:41 02/17/2022 15:52:45 Disorder of vitamin B12 133790177 E53.8 05/28/21 continue supplement ation Patient continue with B12 injections . She is doing well at this time. Continue with the regimen. [id number] LIAM CARBALLO OFFICE [address] [facility] [address] [place] [address] 03/02/2022 11:08:37 03/02/2022 12:15:43 Essential hypertension 09248806 I10 03/02/2022 : Well-contr olled stable. At goal. Continue current medication regimen. Maintain low-sodium diet. 02/02/2022 : Stable. Controlled . Asymptomat ic. Continue current medication regimen. 01/01/2022 : Asymptomat ic. Stable. Controlled . Continue current medication regimen. Maintain low-sodium diet. 09/22/21 Continue current antihypert ensive medication regimen Multiple n odules of lung 178765023 R91.8 02/02/2022 : Recently seen by pulmonolog [...] CTs annually. Disorder o f lipid metabolism 218240467 E78.9 02/02/2022 : Remains asymptomat ic. Lipid panel reviewed. Well-contr olled at goal. Continue current medication regimen. 01/01/2022 : Asymptomat ic. No red flag symptoms. Continue current regimen. Recheck lipid panel. 09/22/21 Not currently on statin therapy. Continue to control with diet and exercise Chronic ki dney disease stage 3 853566199 N18.31 03/02/2022 : CMP reviewed. EGFR 57. [...] interval labs Chronic ob structive pulmonary disease 38867391 J44.9 03/02/2022 : All stable at today's visit. No recent acute exacerbati on. Followed by pulmonolog y. 02/02/2022 : Stable. Recently seen by pulmonolog y. No changes. Doing well overall. Follow-up with pulmonolog y as scheduled, will follow along. 01/01/2022 : Mildly worsening dyspnea on exertion since returning recently from [facility]. Patient has upcoming appointmen t with pulmonolog y in a few weeks. In the meantime, patient's Proventil is refilled. 09/22/21 Stable at this time. Continue to follow with Dr. Rodriguez with pulmonolog y Body mass index 30+ - obesity 687050781 Z68.30 03/02/2022 : Patient will benefit by eating more fruits and vegetables , fish and poultry; while strictly limiting intake of carbohydra starr, fried foods, fatty foods, sugary foods, and red meats. Patient will benefit from exercise for a minimum of 30 minutes/da y, for at least 3 days/week. 09/22/21 continue to work on weight reduction Advance care planning 71 9217441 Z71.89 has plan/dnr Epigastric pain 97462203 R10.13 03/02/2022 : Resolved with famotidine . Continue current medication regimen. Avoid triggers. 02/02/2022 : New onset. Patient notes that she is experience d this for over 20 years . No associatio n with food or lying down. This can be seen in the clinic setting of esophageal spasm. Stop famotidine . Follow-up in 28 days. Disorder o f vitamin B12 463365657 E53.8 Venous varices 234513349 I83.92 03/02/2022 : Patient recently seen by [...] surgery at this time. Cyst of kidney 231387100 N28.1 Osteoarthr itis of left knee joint 7853745856 28603 M17.12 03/02/2022 : Patient reports longstandi ng bilateral knee pain. He asks about hyaluronic acid injections . Long discussion about the types of osteoarthr itis and the grading. We will get radiologic al imaging to make further assessment recommenda tions. Osteoarthr itis of right knee joint 5395382288 84813 M17.11 03/02/2022 : Patient reports longstandi ng bilateral knee pain. He asks about hyaluronic acid injections . Long discussion about the types of osteoarthr itis and the grading. We will get radiologic al imaging to make further assessment recommenda tions. [id number] Rajiv Red MD OFFICE [address] [facility] [address] [place] [address] 03/22/2022 13:32:44 03/22/2022 13:50:48 Serum vitamin B12 below reference range 124676749 R79.89 [id number] SANJEEV BILL OFFICE [address] [facility] [address] [place], [place] [address] 05/27/2022 14:28:42 05/27/2022 15:25:27 Chronic obstructive pulmonary disease 23475055 J44.9 05/27/22 stable inhalers good result dr rodriguez follows ct pulm no issues utd 05/28/21 Stable at this time. Continue to follow with Dr. Rodriguez with pulmonolog y Essential hypertension 94112717 I10 05/27/22 weight down several pounds bp good 05/28/21 Blood pressure stable today with a reading of 128/70. Disorder o f vitamin B12 062794926 E53.8 05/27/22 today b12 05/28/21 continue supplement ation Patient continue with B12 injections . She is doing well at this time. Continue with the regimen. Venous varices 947634503 I83.92 05/27/22 stable no issues 05/28/21 Continues to follow with Dr. Melo for monitoring 03/02/21 saw vascular surgery on 01/12/2021 for venous varices they recommende d conservati ve therapy at this time. Patient will keep legs elevated and wear compressio n stockings at this time. She will continue to follow with vascular surgery at this time. Body mass index 30+ - obesity 942287613 Z68.30 05/28/21 continue to work on weight reduction Cyst of kidney 892752591 N28.1 05/27/22 leeroy appt pending per patient 05/28/21 continues to follow with Dr. Feliz from urology who monitors it. She also informs me that she has an appointmen t coming up with him at the beginning of June. Disorder o f lipid metabolism 785725889 E78.9 05/27/22 labs noted young 87 05/28/21 Not currently on statin therapy. Continue to control with diet and exercise Chronic ki dney disease stage 3 086687132 N18.31 05/27/22 stable gfr good 05/28/21 stable. continue to monitor with interval labs Multiple n odules of lung 717475000 R91.8 05/27/22 pulm 05/28/21 continue to follow with Dr. Rodriguez with pulmonolog y for monitoring 03/02/21 saw pulmonolog y on 01/26/2021 . Patient has a history of lung nodules and recent chest CT showed no changes to the nodules at this time. She will continue to follow with pulmonolog y and will continue to have chest CTs annually. Advance care planning 71 6116064 Z71.89 has plan/dnr Epigastric pain 63270680 R10.13 05/27/22 02/02/2022 : New onset. Patient notes that she is experience d this for over 20 years . No associatio n with food or lying down. This can be seen in the clinic setting of esophageal spasm. Stop famotidine . Follow-up in 28 days. Osteoarthr itis of left knee joint 7975751428 92717 M17.12 3/16/23 nsaid ortho 03/02/2022 : Patient reports longstandi ng bilateral knee pain. He asks about hyaluronic acid injections . Long discussion about the types of osteoarthr itis and the grading. We will get radiologic al imaging to make further assessment recommenda tions. Osteoarthr itis of right knee joint 3597629412 93722 M17.11 05/27/22 ortho 03/02/2022 : Patient reports longstandi ng bilateral knee pain. He asks about hyaluronic acid injections . Long discussion about the types of osteoarthr itis and the grading. We will get radiologic al imaging to make further assessment recommenda tions. Serum vijaya min B12 below reference range 405025323 R79.89 lot 2270 exp 10/2023 right deltoid , clinic provide , 05/27/2022 mm 3:23PM [facility] [id number] Rajiv Red MD OFFICE [address] [facility] [address] [place] [address] 06/10/2022 13:21:04 06/10/2022 14:55:04 Chronic obstructive pulmonary disease 86408832 J44.9 06/10/22 05/27/22 stable inhalers good result dr rodriguez follows ct pulm no issues utd 05/28/21 Stable at this time. Continue to follow with Dr. Rodriguez with pulmonolog y Essential hypertension 37442986 I10 06/10/22 05/27/22 weight down several pounds bp good 05/28/21 Blood pressure stable today with a reading of 128/70. Disorder o f vitamin B12 013702220 E53.8 06/10/22 05/27/22 today b12 05/28/21 continue supplement ation Patient continue with B12 injections . She is doing well at this time. Continue with the regimen. Venous varices 448839808 I83.92 05/27/22 stable no issues 05/28/21 Continues to follow with Dr. Melo for monitoring 03/02/21 saw vascular surgery on 01/12/2021 for venous varices they recommende d conservati ve therapy at this time. Patient will keep legs elevated and wear compressio n stockings at this time. She will continue to follow with vascular surgery at this time. Body mass index 30+ - obesity 446700988 Z68.30 06/10/22 05/28/21 continue to work on weight reduction Cyst of kidney 648154028 N28.1 06/10/22 05/27/22 leeroy appt pending per patient 05/28/21 continues to follow with Dr. Feliz from urology who monitors it. She also informs me that she has an appointmen t coming up with him at the beginning of June. Disorder o f lipid metabolism 914531263 E78.9 06/10/22 05/27/22 labs noted young 87 05/28/21 Not currently on statin therapy. Continue to control with diet and exercise Chronic ki dney disease stage 3 841896801 N18.31 06/10/22 05/27/22 stable gfr good 05/28/21 stable. continue to monitor with interval labs Multiple n odules of lung 506685209 R91.8 06/10/22 05/27/22 pulm 05/28/21 continue to follow with Dr. Rodriguez with pulmonolog y for monitoring 03/02/21 saw pulmonolog y on 01/26/2021 . Patient has a history of lung nodules and recent chest CT showed no changes to the nodules at this time. She will continue to follow with pulmonolog y and will continue to have chest CTs annually. Advance care planning 71 8646457 Z71.89 has plan/dnr Epigastric pain 03982239 R10.13 06/10/22 02/02/2022 : New onset. Patient notes that she is experience d this for over 20 years . No associatio n with food or lying down. This can be seen in the clinic setting of esophageal spasm. Stop famotidine . Follow-up in 28 days. Osteoarthr itis of left knee joint 0872387331 38487 M17.12 06/10/22 05/27/22 nsaid ortho 03/02/2022 : Patient reports longstandi ng bilateral knee pain. He asks about hyaluronic acid injections . Long discussion about the types of osteoarthr itis and the grading. We will get radiologic al imaging to make further assessment recommenda tions. Osteoarthr itis of right knee joint 5851809915 95664 M17.11 06/10/22 05/27/22 ortho 03/02/2022 : Patient reports longstandi ng bilateral knee pain. He asks about hyaluronic acid injections . Long discussion about the types of osteoarthr itis and the grading. We will get radiologic al imaging to make further assessment recommenda tions. Serum vijaya min B12 below reference range 618606006 R79.89 lot 2270 exp 10/2023 right deltoid , clinic provide , 05/27/2022 mm 3:23PM [employer] Diabetes m ellitus screening 524885972 Z13.1 Geriatric screening status 641264744 Z13.9 Pneumonia 171675828 J18. 9 Acute hypo xemic respiratory failure 588337941 J96.01 [id number] Rajiv Red MD OFFICE [address] [facility] [address] [place] [address] 06/25/2022 10:24:27 06/25/2022 10:35:31 Disorder of vitamin B12 734891285 E53.8 06/25/22 06/10/22 05/27/22 today b12 05/28/21 [...] (MEDICARE REPLACEMENT/A DVANTAGE - PPO) Gilda Scheehser [id number] Gilda Scheehser 03/22/2022 1 [facility] (MEDICARE REPLACEMENT/A DVANTAGE - HMO) [id number] Gilda Scheehser [id number] Gilda Scheehser 05/27/2022 1 [facility] (MEDICARE REPLACEMENT/A DVANTAGE - PPO) [id number] Rio A Scheehser [id number] Rio Scheehser 06/10/2022 1 [facility] (MEDICARE REPLACEMENT/A DVANTAGE - PPO) [id number] Rio A Scheehser [id number] Gilda Scheehser 06/25/2022 1 [facility] (MEDICARE REPLACEMENT/A DVANTAGE - PPO) [id number] Rio A Scheehser [id number] Gilda Scheehser Notes Date Note Type Note [...] are stable for the patient. LIAM CARBALLO [address] [facility] [address], [place], [address], [facility], [facility] 03/02/2022 12:39:07 3 text/html here for annualsees dr hanna for lungs no sx on triple therapy---neb machine [facility] cp no cough no sobmamm yearlyon meds for RA on hydroxychlorquine dr goldman rheummadeline abd pain SANJEEV BILL [place], [place] - Register My Info [facility], [facility] 07/29/2022 09:33:51 3 text/html discharge 06/09/22admitted for exacerbation of copd with then pneumonia bilateral hypoxiarecords notedlabs okno cp some sob today not [place] prednisone taper dc doxy cefdinirhere with [facility]/ with dr hanna on meds for RA on hydroxychlorquine [place] [id number] [facility] [address], [place], [id number], [facility], [facility] 06/10/2022 15:47:31 3 text/html discharge 06/09/22admitted for exacerbation of copd with then pneumonia bilateral hypoxiarecords notedlabs okno cp some sob today not [place] prednisone taper dc doxy cefdinirhere with daughter from [facility]/ with dr hanna on meds for RA on hydroxychlorquine [place] [id number] [facility] [address], [place], [phone], [facility], [facility] 06/25/2022 12:47:18 OBGyn Episode No OBEpisode recorded.
--- OUTSIDE RECORDS SUMMARY | 2024-06-19 18:01 | XMS_ITS | Clinical Summary ---
Author Organization [facility] Address [address] [place] [address] Care Team Providers Care Night Warehouse Selector Name Role Phone Unavailable Primary Care Provider [...] 06/08/2024 Orders Only [facility] Department Of English Instructor [place] [address] [place] [address] Davion Fraga MD 06/04/2024 Orders Only [facility] Department Of English In[employer] [place] [address] [place] [phone] Hammad Rayo MD Uterine mass (Primary Dx) 05/24/2024 Orders Only [facility] Department Of English Instructor [place] [address] [place] [phone] Davion Fraga MD 05/22/2024 3:30 PM EDT Office Visit [facility] Department Of English Instructor [place] [address] [place] [address] Hammad Rayo MD Pelvic mass (Primary [...]
--- OUTSIDE RECORDS SUMMARY | 2024-06-19 18:01 | XMS_ITS | Encounter Summary ---
Author Organization [facility] Address [address] [place] [id number] Care Team Providers Care Straightener Name Role Phone Unavailable Primary Care Provider Unavailabl e Reason for Referral * Specialty Diagnoses / Procedures Referred By Contac t Referred To Contact Gynecologic Oncology [facility] [address] [place] [address] [place] [address] Referral ID Status Reason Start Date Expiration Date Visits Re quested Visits Authorized Comments This order was created through External Result Entry Encounter Details Date Type Department Care Team (Late st Contact Info) Description 06/08/2024 Orders Only [facility] Department Of Customer Data Technician [place] [address] [place] [phone] Provider, Davion, [address] [place] [address] Social History Tobacco Use Types Packs/Day Years [...]
--- OUTSIDE RECORDS SUMMARY | 2024-06-19 18:01 | XMS_ITS | Patient Health Record ---
Author Organization [facility] Address [address] [place] [address] Care Team Providers Care Report Programmer Name Role Phone Hernandez CERVANTES, [place] Primary Care Provider Alan Villanueva DO Unavailable [phone] Serena Hackett DO Unavailable [phone] Allergies Allergen (clinical drug ingredient) Drug/Non Drug Allergy documented on EMR Reaction Allergy Type Onset Date Status Latex Latex Unknown Allergy 03/02/2022 Active Substance with sulfonamide structure and antibacterial mechanism of action (substance) Sulfa Antibiotics Unknown Drug Allergy Active Results Component Value Reference Range Notes Complete Blood Count With Di fferential With Reflex to Smear Review (CBC) Reviewed date:04/28/2024 01:46:24 PM Interpretation: Performing Lab:[facility], [address] [place] [id number], Phone - [phone], Director - Shalom Notes/Report: WBC 6.9 3.4-10.8 [...] 01:46:25 PM Interpretation: Performing Lab:[facility], [address] [place], [place] [id number], Phone - [phone], Director - MDJodry Notes/Report: Cholesterol, Total 125 100-199 mg/dL Triglycerides 92 0-149 mg/dL HDL Cholesterol 52 >39 mg/dL VLDL Cholesterol Ayo 17 5-40 mg/dL LDL Chol Calc ([facility]) 56 0-99 mg/dL T. Chol/HDL Ratio 2.4 0.0-4.4 ratio Men Women 2X Avg.Risk 9.6 7.1 Avg.Risk 5.0 4.4 3X Avg.Risk 23.4 11.0 T. Chol/HDL Ratio 1/2 Avg.Risk 3.4 3.3 Comprehensive Metabolic Pane l 14 (CMP) Reviewed date:04/28/2024 01:46:25 PM Interpretation: Performing Lab:[facility], [address] [place], [place] [id number], Phone - [phone], Director - MDJodry Notes/Report: Glucose 67 70-99 [...] Ratio Reviewed date:09/11/2023 08:37:16 PM Interpretation: Performing Lab:[facility] [place], [address] [place] [id number], Phone - [phone], Director - MDJodry Notes/Report: Cholesterol, Total 143 100-199 mg/dL Triglycerides 81 0-149 mg/dL HDL Cholesterol 52 >39 mg/dL VLDL Cholesterol Ayo 16 5-40 mg/dL LDL Chol Calc ([facility]) 75 0-99 mg/dL T. Chol/HDL Ratio 2.8 0.0-4.4 ratio 2X Avg.Risk 9.6 7.1 Avg.Risk 5.0 4.4 Men Women 1/2 Avg.Risk 3.4 3.3 T. Chol/HDL Ratio 3X Avg.Risk 23.4 11.0 Complete Blood Count With Di fferential With Reflex to Smear Review (CBC) Reviewed date:09/11/2023 08:37:16 PM Interpretation:RBC 3.75 Performing Lab:[facility] [address] [id number], Phone - [phone], Director - MDJoy Notes/Report: WBC 5.4 3.4-10.8 x10E3/uL RBC 3.75 [...] T4F Reviewed date:09/11/2023 08:37:16 PM Interpretation: Performing Lab:[facility] [address] [id number], Phone - [phone], Director - MDElsadry Notes/Report: TSH 2.260 0.450-4.500 uIU/mL Vitamin D, 25-Hydroxy Reviewed date:09/11/2023 08:37:15 PM Interpretation: Performing Lab:[facility] [address] [id number], Phone - [phone], Director - MDElsadry Notes/Report: Vitamin D, 25-Hydroxy 56.0 30.0-100.0 ng/mL insufficiency as a level between 21 and 29 ng/mL (2). intakes for calcium and D. [place]: The National Academies Press. The Endocrine Society went on to further define vitamin D level of serum 25-OH vitamin D less than 20 ng/mL (1,2). Vitamin D deficiency has been defined by the [place] of 1. IOM ([place] of Medicine). 2010. Dietary reference guideline. JCEM. 2010; 96(7):1911-30. deficiency: an Endocrine Society clinical practice 2. Nadine MF, Mao ALVARADO, Francine JENSEN, et al. Medicine and an Endocrine Society practice guideline as a Evaluation, treatment, and prevention of vitamin D Comprehensive Metabolic Pane l 14 (CMP) Reviewed date:09/11/2023 08:37:15 PM Interpretation:Cr 1.40, gfr 36 Performing Lab:[facility] [address] [id number], Phone - [phone], Director - MDElsadry Notes/Report: Glucose 97 70-99 mg/dL BUN 24 [...] as directed Orally 630mg once daily Active Olmesartan Medoxomil 20 MG 0.5 tablet Or ally once daily for 100 days 1/2 tablet 07/16/2022 Active Cyanocobalamin 1000 MCG/ML 1 mL Injectio n Monthly for 180 days Active Metoprolol Succinate 25 mg 0.5 tablets p o daily for 100 days 1/2 tab qd Active Albuterol Sulfate (2.5 MG/3ML) 0.083% 3 mL as needed Inhalation every 6 hrs 0.5mg/ml Active predniSONE 10 MG (21) 1 tablet Orally Once a day Not-Taking rOPINIRole HCl 0.25 MG 1 tablet Orally twice a day for 90 days as directed bid po Active Vitamin D (Ergocalciferol) 1.25 MG (54525 UT) 1 capsule Orally weekly for 90 [...] History Marital status: Question Answer Notes Status: Problems Problem Type SNOMED Code ICD Code Onset Dates Problem Status W/U Status Risk Notes Problem Leukopenia (38219413) Decreased white blood cell count, unspecified (D72.819) 019 Active confirmed Ricky-162 1144- Problem 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) Active confirmed Problem Vitamin B deficiency (88846795) Deficiency of other specified B group vitamins (E53.8) 016 Active confirmed Ricky-162 1144- Problem Vitamin D deficiency (81987903) Vitamin D deficiency, unspecified (E55.9) 015 Active confirmed Ricky-162 1144- Problem Tobacco user (191445519) Nicotine dependence, other tobacco product, uncomplicated (F17.290) 015 Active confirmed Ricky-162 1144- Problem Adjustment disorder (93227644) Adjustment disorder, unspecified (F43.20) Active confirmed Ricky-162 1144- Problem Supraventricular tachycardia (8192740) Supraventricular tachycardia (I47.1) 018 Active confirmed Ricky-162 1144- Problem Chronic obstructive pulmonary disease (62755669) Chronic obstructive pulmonary disease, unspecified (J44.9) Active confirmed Ricky-162 1144- Problem Fatty liver (532244025) Fatty (change of) liver, not elsewhere classified (K76.0) Active confirmed Ricky-162 1144- Problem Rheumatoid arthritis (53312552) Rheumatoid arthritis, unspecified (M06.9) Active confirmed Ricky-162 1144- Problem 431123036 Mild anemia (D64.9) Active confirmed Problem Bone density finding (040593896) Oth disrd of bone density and structure, unspecified site (M85.80) Active confirmed Ricky-162 1144- Problem Chronic kidney disease stage 3 (disorder) (774634348) Chronic kidney disease, stage 3 (moderate) (N18.3) Active confirmed Ricky-162 1144- Problem Fatigue (93562763) Other fatigue (R53.83) Active confirmed Ricky-162 1144- Problem Essential hypertension (56254133) Essential (primary) hypertension (I10) Active confirmed Ricky-162 1144- Problem Uncomplicated asthma (disorder) (144458994) Unspecified asthma, uncomplicated (J45.909) Active confirmed Ricky-162 1144- Problem Long-term current use of drug therapy (940278464) Other group home (current) drug therapy (Z79.899) Active confirmed Ricky-162 1144- Problem 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) (797239119) 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 Problem Pulmonary hypertension (53262625) Pulmonary hypertension, unspecified (I27.20) Active confirmed Ricky-162 1144- Problem Immunodeficiency disorder (disorder) (079587469) 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 [place] Lulu 02/28/2024 09:32:49 AM EST > Blood pressure diastolic 72 mm Hg 02/28/2024 Blo od pressure was taken on left arm, while sitting down, with both feet flat on the ground. [place] Lulu 02/28/2024 09:32:49 AM EST > Height 60 in 02/28/2024 Blood pressure was taken on left arm, while sitting down, with both feet flat on the ground. [place] Lulu 02/28/2024 09:32:49 AM EST > Blood pressure systolic 138 mm Hg 02/28/2024 Bloo d pressure was taken on left arm, while sitting down, with both feet flat on the ground. [place] Lulu 02/28/2024 09:32:49 AM EST > Weight 150 lbs 07/13/2023 BP was taken on left arm, while sitting down, with both feet flat on the ground. BMI 29.29 kg/m2 07/13/2023 BP was taken on left arm, while sitting down, with both feet flat on the ground. Encounters Encounter Location Date Provider Diagnosis [facility] [address] [place], [place] [id number] 01/09/2024 Paulo Ng Chronic obstructive pulmonary disease, unspecified J44.9 ; Essential (primary) hypertension I10 ; Rheumatoid arthritis, unspecified M06.9 ; Immunodeficiency due to conditions classified elsewhere D84.81 ; Routine adult health maintenance Z00.00 and Rheumatoid arthritis, involving unspecified site, unspecified whether rheumatoid factor present M06.9 [facility] at [address] [place], [place] [id number] 06/24/2023 Serena Lew Essential (primary) hypertension I10 ; Chronic obstructive pulmonary disease, unspecified J44.9 ; Rheumatoid arthritis, unspecified M06.9 ; Drug-induced adrenocortical insufficiency E27.3 ; 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 ; Vitamin D deficiency, unspecified E55.9 ; Other fatigue R53.83 ; Deficiency of other specified B group vitamins E53.8 ; Other port purser (current) drug therapy Z79.899 and Stage 3b chronic kidney disease (CKD) N18.32 [facility] at [address] [place], [place] [id number] 06/20/2023 Serena [place] [facility] at [address] [place], [place] [id number] 07/05/2023 Serena [place] [facility] at [address] [place], [place] [id number] 07/07/2023 Serena [place] Multifocal pneumonia J18.9 ; 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 ; Chronic obstructive pulmonary disease, unspecified J44.9 and Essential (primary) hypertension I10 [facility] at [address] [place], [place] [id number] 07/13/2023 Serena [place] Chronic obstructive pulmonary disease, unspecified J44.9 ; Multifocal pneumonia J18.9 ; Essential (primary) hypertension I10 ; Rheumatoid arthritis, unspecified M06.9 and Immunodeficiency due to conditions classified elsewhere D84.81 [facility] at [address] [place], [place] [id number] 07/12/2023 Serena [place] [facility] at [address] [place], [place] [id number] 08/17/2023 Serena [place] Essential (primary) hypertension I10 ; Chronic obstructive pulmonary disease, unspecified J44.9 ; Rheumatoid arthritis, unspecified M06.9 ; Immunodeficiency due to conditions classified elsewhere D84.81 and Multifocal pneumonia J18.9 [facility] at [address] [place], [place] [id number] 08/18/2023 Serena Hackett Essential (primary) hypertension I10 [facility] at [address] [place] [place], [place] [id number] 09/14/2023 Serena Hackett Chronic obstructive pulmonary disease, unspecified J44.9 ; Essential (primary) hypertension I10 ; Rheumatoid arthritis, unspecified M06.9 and Immunodeficiency due to conditions classified elsewhere D84.81 [facility] at [address] [facility] [address] [place], [place] [id number] 11/23/2023 Paulo Ng Chronic obstructive pulmonary disease, unspecified J44.9 ; Essential (primary) hypertension I10 ; Rheumatoid arthritis, unspecified M06.9 ; Immunodeficiency due to conditions classified elsewhere D84.81 and Routine adult health maintenance Z00.00 [facility] at [address] [place], [place] [id number] 08/22/2023 Alan Villanueva Vitamin D deficiency , unspecified E55.9 [facility] at [address] [facility], [place] [id number] 09/07/2023 Serena Hackett [facility] at [address] [facility] [address] [place], [place] [id number] 10/14/2023 Paulo Ng Chronic obstructive pulmonary disease, unspecified J44.9 ; Rheumatoid arthritis, unspecified M06.9 ; Essential (primary) hypertension I10 ; Immunodeficiency due to conditions classified elsewhere D84.81 and Routine adult health maintenance Z00.00 [facility] at [address] [facility] [address] [place] [id number] 09/22/2023 Serena Hackett [facility] at [address] [facility] [address] [place], [place] [id number] 10/19/2023 Paulo Ng [facility] at [address] [place] [place], [place] [id number] 10/25/2023 Paulo Ng Rheumatoid arthritis , involving unspecified site, unspecified whether rheumatoid factor present M06.9 [facility] at [address] [place] [address] [place], [place] [id number] 12/12/2023 Paulo Ng [facility] at [address] [place] [place], [place] [id number] 12/13/2023 Paulo Ng [facility] at [address] [place], [place] [id number] 12/27/2023 Paulo Ng [facility] at [address] [place] [place], [place] [id number] 01/02/2024 Paulo Ng Vitamin D deficiency , unspecified E55.9 [facility] at [address] [place] [place], [place] [id number] 01/24/2024 Paulo Ng Chronic obstructive pulmonary disease, unspecified J44.9 ; Essential (primary) hypertension I10 ; Rheumatoid arthritis, unspecified M06.9 ; Immunodeficiency due to conditions classified elsewhere D84.81 ; Routine adult health maintenance Z00.00 and Rheumatoid arthritis, involving unspecified site, unspecified whether rheumatoid factor present M06.9 [facility] at [address] [place], [place] [id number] 02/28/2024 Paulo Ng Essential (primary) hypertension I10 ; Chronic obstructive pulmonary disease, unspecified J44.9 ; Rheumatoid arthritis, unspecified M06.9 ; Immunodeficiency due to conditions classified elsewhere D84.81 ; Routine adult health maintenance Z00.00 and Rheumatoid arthritis, involving unspecified site, unspecified whether rheumatoid factor present M06.9 [facility] at [address] [place], [place] [id number] 04/05/2024 Paulo Ng Chronic obstructive pulmonary disease, unspecified J44.9 ; Essential (primary) hypertension I10 ; Rheumatoid arthritis, unspecified M06.9 ; Immunodeficiency due to conditions classified elsewhere D84.81 ; Routine adult health maintenance Z00.00 ; Rheumatoid arthritis, involving unspecified site, unspecified whether rheumatoid factor present M06.9 and Other port purser (current) drug therapy Z79.899 [facility] at [address] [place] [address] [place], [place] [id number] 03/05/2024 Paulo Ng [facility] at [address] [place] [address] [place], [place] [id number] 03/15/2024 Paulo Ng Rheumatoid arthritis , involving unspecified site, unspecified whether rheumatoid factor present M06.9 [facility] at [address] [place] [place], [place] [id number] 03/19/2024 Paulo Ng Chronic obstructive pulmonary disease, unspecified J44.9 [facility] at [address] [place], [place] [id number] 05/09/2024 Paulo Ng Essential (primary) hypertension I10 Assessments Encounter Date Diagnosis (ICD Code) Assessment Notes Treatment Notes Treatment Clinical Notes 06/24/2023 Essential (primary) hypertension (ICD-10 - I10) [id number]- Continue medications and home monitoring as directed. Continue low sodium diet with goal of <2g per day. Avoid stress. Avoid adding salt to food. Enjoy regular exercise like walking at least 30 minutes a day, five days a week. Ordered labs for continued monitoring. 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 07/07/2023 Multifocal pneumonia (ICD-10 - J18.9) Hospitalized for pneumonia. Improving on Levaquin, nebulizer treatments, and incentive spirometry. Refilled cough medicine. Follow up with pulm tomorrow. 07/13/2023 Chronic obstructive pulmonary disease, unspecified (ICD-10 - J44.9) [id number]- Continue to follow with Saw Man. Restarted trelegy per pulm instruction. 08/17/2023 Chronic obstructive pulmonary disease, unspecified (ICD-10 - J44.9) [id number]- Continue to follow with Saw Man. 08/18/2023 Essential (primary) hypertension (ICD-10 - I10) [id number]- 08/22/2023 Vitamin D deficiency , unspecified (ICD-10 - E55.9) 09/14/2023 Chronic obstructive pulmonary disease, unspecified (ICD-10 - J44.9) [id number]- Continue to follow with Saw Man. 10/14/2023 Chronic obstructive pulmonary disease, unspecified (ICD-10 - J44.9) [id number]- Continue to follow with Saw Man. 10/25/2023 Rheumatoid arthritis , involving unspecified site, unspecified whether rheumatoid factor present (ICD-10 - M06.9) 11/23/2023 Chronic obstructive pulmonary disease, unspecified (ICD-10 - J44.9) [id number]- Continue to follow with Saw Man. 01/02/2024 Vitamin D deficiency , unspecified (ICD-10 - E55.9) 01/09/2024 Chronic obstructive pulmonary disease, unspecified (ICD-10 - J44.9) [facility]-[id number]- Continue to follow with Saw Man. 01/24/2024 Chronic obstructive pulmonary disease, unspecified (ICD-10 - J44.9) [id number]- Continue to follow with Saw Man. 03/15/2024 Rheumatoid arthritis , involving unspecified site, unspecified whether rheumatoid factor present (ICD-10 - M06.9) 03/19/2024 Chronic obstructive pulmonary disease, unspecified (ICD-10 - J44.9) [id number]- 04/05/2024 Chronic obstructive pulmonary disease, unspecified (ICD-10 - J44.9) [id number]- Continue to follow with Saw Man. 02/27 weaning down on predisone right now doing 05/09/2024 Essential (primary) hypertension (ICD-10 - I10) [id number]- 02/28/2024 Chronic obstructive pulmonary disease, unspecified (ICD-10 - J44.9) [id number]- Continue to follow with Saw Man. 02/27 weaning down on predisone right now doing 02/28/2024 Essential (primary) hypertension (ICD-10 - I10) [id number]- Continue medications and home monitoring as directed. Continue low sodium diet with goal of <2g per day. Avoid stress. Avoid adding salt to food. Enjoy regular exercise like walking at least 30 minutes a day, five days a week. 08/17/2023 Essential (primary) hypertension (ICD-10 - I10) [id number]- Continue medications and home monitoring as directed. Continue low sodium diet with goal of <2g per day. Avoid stress. Avoid adding salt to food. Enjoy regular exercise like walking at least 30 minutes a day, five days a week. 08/17/2023 Rheumatoid arthritis , unspecified (ICD-10 - M06.9) [place] if she can stop the hydroxychloroquine. She is doing really well on the methotrexate. 02/28/2024 Rheumatoid arthritis , unspecified (ICD-10 - M06.9) Rheum discontinued methotrexate due to increasing Cr. Seeing rheum in 2 days to discuss other treatment options. 04/05/2024 Essential (primary) hypertension (ICD-10 - I10) [facility]-[id number]- Continue medications and home monitoring as directed. Continue low sodium diet with goal of <2g per day. Avoid stress. Avoid adding salt to food. Enjoy regular exercise like walking at least 30 minutes a day, five days a week. 01/24/2024 Essential (primary) hypertension (ICD-10 - I10) [id number]- Continue medications and home monitoring as directed. Continue low sodium diet with goal of <2g per day. Avoid stress. Avoid adding salt to food. Enjoy regular exercise like walking at least 30 minutes a day, five days a week. 01/09/2024 Essential (primary) hypertension (ICD-10 - I10) [id number]- Continue medications and home monitoring as directed. Continue low sodium diet with goal of <2g per day. Avoid stress. Avoid adding salt to food. Enjoy regular exercise like walking at least 30 minutes a day, five days a week. 11/23/2023 Essential (primary) hypertension (ICD-10 - I10) [id number]- Continue medications and home monitoring as directed. Continue low sodium diet with goal of <2g per day. Avoid stress. Avoid adding salt to food. Enjoy regular exercise like walking at least 30 minutes a day, five days a week. 10/14/2023 Essential (primary) hypertension (ICD-10 - I10) [id number]- Continue medications and home monitoring as directed. [...] 09/14/2023 Essential (primary) hypertension (ICD-10 - I10) [id number]- Continue medications and home monitoring as directed. Continue low sodium diet with goal of <2g per day. Avoid stress. Avoid adding salt to food. Enjoy regular exercise like walking at least 30 minutes a day, five days a week. 07/07/2023 Chronic obstructive pulmonary disease, unspecified (ICD-10 - J44.9) [id number]- Continue to follow with Saw Man. Restart trelegy per pulm instruction. 07/13/2023 Essential (primary) hypertension (ICD-10 - I10) [id number]- Restarted olmesartan, BP better controlled now. Home BP numbers back to normal after restarting medication. 07/13/2023 Multifocal pneumonia (ICD-10 - J18.9) Mostly resolved. Having follow up CXR with pulm just before she leaves to go back [place]. States that she feels significantly better. 06/24/2023 Chronic obstructive pulmonary disease, unspecified (ICD-10 - J44.9) [facility]-[id number]- To help your lungs, avoid lung irritants (smoking and 2nd hand smoke, chemical fumes, dust, etc.). Work on taking deep breaths to keep your lungs inflated. Continue treatment as directed. Continue to follow with Saw Man. 06/24/2023 Rheumatoid arthritis , unspecified (ICD-10 - M06.9) [id number]- Continue to follow with na[place]keag operator. Not having any pain taking the methotrexate and hydroxychloroquin. 07/07/2023 Essential (primary) hypertension (ICD-10 - I10) [id number]- Monitor BP at home. If SBP consistantly [...] Suspected NBA infection, continue follow up with director of officiating. 06/24/2023 Vitamin D deficiency , unspecified (ICD-10 [...] factor present (ICD-10 - M06.9) 04/05/2024 Other group home (current) drug therapy (ICD-10 - Z79.899) 01/24/2024 Rheumatoid arthritis , involving unspecified site, unspecified whether rheumatoid factor present (ICD-10 - M06.9) 01/09/2024 Rheumatoid arthritis , involving unspecified site, unspecified whether rheumatoid factor present (ICD-10 - M06.9) 06/24/2023 Other fatigue (ICD-1 0 - R53.83) Ordered labs for continued monitoring. 06/24/2023 Other group home (current) drug therapy (ICD-10 - Z79.899) Ordered labs for continued monitoring. 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 06/24/2023 Stage 3b chronic kidney disease (CKD) (ICD-10 - N18.32) Continue with medications as prescribed, maintain BP control at target. Monitor blood pressure and Renal function. Follow a low sodium diet. Avoid all NSAIDs. 09/14/2023 Other Plan Of Treatment Future Test Test Name Order Date Vitamin B12 12/21/2022 Urinalysis, Complete (UA) 12/21/2022 Complete Blood Count With Differential W ith Reflex to Smear Review (CBC) 12/21/2022 Vitamin D, 25-Hydroxy 12/21/2022 Lipid Panel With Total Cholesterol/HDL R atio 12/21/2022 TSH reflex to T4F 12/21/2022 Comprehensive Metabolic Panel 14 (CMP) 1 Complete Blood Count With Differential W ith Reflex to Smear Review (CBC) 04/25/2023 Next Appt Details Provider Name:Paulo Sil Ng , 06/22/2024 02:40:00 PM, [address], [place], [place], [id number], Insurance Providers Payer Name Payer Address Payer Phone Subscriber Number Group Number Insured Name Patient Relationship to Insured Coverage Start Date Coverage End Date [id number] [place] PPO [address] [address] [place], [place] [id number] Gilda Mari Self - patient is the insured Medications Administered Medication Instructions Date of Administration Dosage Notes Cyanocobalamin 03/18/2023 1 mL cyanocobalamin 04/25/2023 1 mL cyanocobalamin 06/24/2023 1 mL Medical (General) History Surgical History Surgery Date(Month/Year) Colonoscopy In 01/26/2012 Hospitalization History Reason Date(Month/Year) Cough, COPD and pneumonia 05/2022 Multifocal pneumonia 2023
--- OUTSIDE RECORDS SUMMARY | 2024-06-19 18:01 | XMS_ITS | Continuity of Care Document ---
Author Organization Demarcus Nichols MD P A Address [address] [place] [phone] Phone Care Team Providers Care Plaster Lather Name Role Phone Mesfin Stuart NP Unavailable [...] on Encounter Demarcus Nichols MD PA, [address] [place] [address], [id number], [place] tel:[phone] Main Office Rheumatoid Arthritis (chief complaint) Rheumatoid arthritis with rheumatoid factor of multiple sites without organ or systems involvementChroni c fatigue, unspecifiedLong term (current) use of antimetabolite agentLong term use of immunosuppressant Immunodeficiency due to drugsEncounter for therapeutic drug level monitoringVenous insufficiency of lower extemity Sep-2 4 Sade Toure. [address] [place] [address], [id number] , [place]. tel: [phone] Demarcus WHEELER, [address] [place] [address], [id number], tel:[phone] [facility] Immunodeficiency due to drugsLong term (current) use of antimetabolite agentRheumatoid arthritis with rheumatoid factor of multiple sites without organ or systems involvementEncoun ter for therapeutic drug level monitoring 4 Sade Toure. [facility], [id number] , . tel: [phone] Demarcus WHEELER, [address] [place] [address], [id number], tel:[phone] [facility] Inflammatory polyarthropathyRh eumatoid arthritis with rheumatoid factor of multiple sites without organ or systems involvementLong term (current) use of antimetabolite agentImmunodefici ency due to drugs 3 Sade Toure. [address] [place] [address], [id number] , . tel: [phone] Demarcus WHEELER, [address] [place] [address], [id number], tel:[phone] [facility] No Information 3 Sade Toure. [address] [place] [address], [id number] , . tel: [phone] Demarcus WHEELER, [address] [place] [address], [id number], tel:[phone] [facility] Chronic fatigue, unspecifiedEncoun ter for therapeutic drug level monitoringImmunod eficiency due to drugsRheumatoid arthritis with rheumatoid factor of multiple sites without organ or systems involvement 3 Sade Toure. [facility], [id number] , . tel: [phone] Demarcus WHEELER, [address] [place] [address], [id number], tel:[phone] [facility] Other fci (current) drug therapyChronic fatigue, unspecifiedChroni c obstructive pulmonary disease, unspecifiedRheuma toid arthritis with rheumatoid factor of multiple sites without organ or systems involvement 3 Sade Toure. [address], [id number] , . tel: [phone] Demarcus WHEELER, [address] [place] [address], [id number], [place] tel:[phone] [facility] Other fci (current) drug therapyLong term (current) use of systemic steroidsChronic fatigue, unspecifiedRheuma toid arthritis with rheumatoid factor of multiple sites without organ or systems involvement 3 Sade Toure. [address], [id number] , [place]. tel: [phone] Demarcus WHEELER, [address] [place] [address], [id number], tel:[phone] [facility] No Information 3 Sade Toure. [address], [id number] , [place]. tel: [phone] Demarcus WHEELER, [address] [place] [address], [id number], tel:[phone] [facility] No Information 2 Sade Toure. [address], [id number] , [place]. tel: [phone] Demarcus WHEELER, [address], [id number], [place] tel:[phone] Main Office Pain in unspecified jointRheumatoid arthritis with rheumatoid factor of multiple sites without organ or systems involvementInflam matory polyarthropathyOt her fci (current) drug therapy 2 Sade Toure. [address], [id number] , [place]. tel: [phone] Demarcus WHEELER, [address], [id number], tel:[phone] Main Office Pain in unspecified jointPain in right kneeInflammatory polyarthropathyLo ng term (current) use of systemic steroids 2 Sade Toure. [address], [id number] , . tel: [phone] Demarcus WHEELER, [address], [id number], tel:[phone] [facility] No Information 9 Sade Toure. [address], [id number] , . tel: [phone] Family History Family Member Type Diagnosis Age [...] involvement assessment Chronic fatigue, unspecified Nov assessment intermediate (current) use of antim etabolite agent assessment intermediate use of immunosuppressa nt assessment Immunodeficiency due to drugs Se assessment Encounter for therapeutic drug l evel monitoring assessment Venous insufficiency of lower ex temity Mental Status Date Cognitive Assessment Orientation - [place] ed to time, place, person, situation. Patient Care Teams Name Effective Dates (start - stop) Status Members No Information
--- OUTSIDE RECORDS SUMMARY | 2024-06-19 18:01 | XMS_ITS ---
Author Organization [facility] Address [address] [place] [address] Care Team Providers Care Liquid Sugar Melter Name Role Phone Paulo Ng MD Primary Care Provider [phone] REASON FOR VISIT Medication refill Medications Medication SIG (Take, Route, Frequency, Duration) Notes Start Date End Date Status Olmesartan Medoxomil 20 MG 0.5 tablet Orally once daily for 100 days 1/2 tablet 07/16/2022 Active Metoprolol Succinate 25 mg 0.5 tablets po daily for 100 days 1/2 tab qd Active Encounters Encounter Location Date Provider Diagnosis [facility] [address] [facility] [address] [place], [place] [id number] 05/09/2024 Paulo Ng Essential (primary) hypertension I10 Assessments Encounter Date Diagnosis (ICD Code) Assessment Notes Treat ment Notes Treatment Clinical Notes 05/09/2024 Essential (primary) hypertension (ICD-10 - I10) [facility]-[id number]- Plan Of Treatment Medication Medication Name Sig Start Date Stop Date Notes Olmesartan Medoxomil 20 MG 0.5 tablet Or ally once daily for 100 days 07/16/2022 1/2 tablet Metoprolol Succinate 25 mg 0.5 tablets p o daily for 100 days 1/2 tab qd Next Appt Details Provider Name:Paulo Ng , 06/22/2024 02:40:00 PM, [address], [place], [place], [id number], Progress Notes * Gilda CHAN ADOB:1935 (89 yo F)Acc No.[id number]:05/09/2024 Patient:Gilda PERAZA :1935???Age:89 Y???Sex:Female Address:[address] [address], [place] [address] * Refills? Refill Olmesartan Medoxomil Tablet, 20 MG, Orally, 50 Tablet, 0.5 tablet, once daily, 100 days, Refills=3 Refill Metoprolol Succinate tablet, 25 mg, po, 50 Tablet, 0.5 tablets, daily, 100 days, Refills=3 * true * Date:? Generated for Phani elkins/[place]/Dominique on:?06/19/2024 03:37 PM CDT
--- OUTSIDE RECORDS SUMMARY | 2024-06-19 18:01 | XMS_ITS ---
[facility] Address [address] [place] [address] Care Team Providers Care Indian Nanny Name Role Phone Hernandez CERVANTES, Paulo Primary Care Provider REASON FOR VISIT Refill Medications Medication SIG (Take, Route, Frequency, Duration) Notes Start Date End Date Status Albuterol Sulfate HFA 108 (90 Base) MCG/ACT 1 puff as needed Inhalation every 4 hrs for 90 days 01/09/2024 Active Encounters Encounter Location Date Provider Diagnosis [facility] [address] [place], [place] [id number] 03/19/2024 Paulo Ng Chronic obstructive pulmonary disease, unspecified J44.9 Assessments Encounter Date Diagnosis (ICD Code) Assessment Notes Treat ment Notes Treatment Clinical Notes 03/19/2024 Chronic obstructive pulmonary disease, unspecified (ICD-10 - J44.9) [facility]-[id number]- Plan Of Treatment Medication Medication Name Sig Start Date Stop Date Notes Albuterol Sulfate HFA 108 (9 0 Base) MCG/ACT 1 puff as needed Inhalation every 4 hrs for 90 days 01/09/2024 Next Appt Details Provider Name:Paulo Ng , 06/22/2024 02:40:00 PM, [address], [place], [place], [id number], Progress Notes * Gilda CHAN ADOB:1935 (88 yo F)Acc No.[id number]:03/19/2024 Patient:?Gilda CHAN :1935???Age:88 Y???Sex:Female Address:[address] [place] [id number] * Refills? Refill Albuterol Sulfate HFA Aerosol Solution, 108 (90 Base) MCG/ACT, Inhalation, 4, 1 puff as needed, every 4 hrs, 90 days * true * Date:? Generated for Phani elkins/[place]/eTransmitting on:?06/19/2024 03:37 PM CDT
[2024-06-19 18:35] LABS: MANUAL DIFF FLAG NO
[2024-06-19 18:57] LABS: Basophils Percent Auto 0.7 % (0-2); Eosinophils Percent Auto 0.5 % (0-4); Hematocrit 34.5 % (37.0-47.0); Imm Gran Abs Auto 0.02 X10*3/uL (0.00-0.03); Imm Gran Pct Auto 0.3 % (0.0-0.4); Lymphocytes Absolute Auto 0.6 X10*3/uL (1.2-4.9); Lymphocytes Percent Auto 10.7 % (20-40); Mean Corpuscular HGB Conc 31.9 g/dl (31.0-35.0); Mean Corpuscular Hemoglobin 29.1 pg (27.0-33.0); Mean Corpuscular Volume 91.3 fL (80.0-98.0); Mean Platelet Volume 8.9 fL (9.4-12.3); Monocytes Absolute Auto 0.4 X10*3/uL (0.1-1.2); Monocytes Percent Auto 7.4 % (2-11); Neutrophils Absolute Auto 4.7 x10*3/uL (2.0-8.3); Neutrophils Percent Auto 80.4 % (45-73); Platelet Count 255 X10*3/uL (160-400); Red Blood Count 3.78 X10*6/uL (4.20-5.50); Red Cell Distribution Width 13.8 % (11.0-16.0); White Blood Count 5.8 X10*3/uL (4.8-10.8)
[2024-06-19 19:09] LABS: Alanine Aminotransferase 17 U/L (0-31); Aspartate Amino Transferase 28 U/L (5-31); C Reactive Protein 1.18 mg/dL (< or = 0.50); Estimated Glomerular Filt Rate 38
[2024-06-19 19:38] LABS: Erythrocyte Sedimentation Rate 38 MM/HR (0-20)
== END 2024-06-19 13:40 | disposition home or self-care (01) ==
LOC: HO.HKASLDS 13:39
PROVIDERS: PCP Internal Medicine; Visit Provider Internal Medicine Rheumatology
DX: Z79.899 Other long term (current) drug therapy (principal); Z79.60 Long term (current) use of unspecified immunomodulators and immunosuppressants
CPT/HCPCS: 36415; 82565; 84450; 84460; 85025; 85652; 86140

== ENCOUNTER 2024-06-19 13:39 | Outpatient (AMB) | payer OTHER, SELFPAY ==
--- NOTE | 2024-06-19 13:41 | MHC.OFFVIS ---
Vital Signs 06/19/24 13:54 Height 4 ft 11.5 in Weight 146 lb 13.246 oz BMI 29.2 BP 130/60 Blood Pressure Location Rt brachial Position Sitting Pulse 77 Pulse Source Pulse Oximeter Pulse Oximetry (%) 97 Oxygen Delivery Method Room Air Intake Visit Reasons: discuss medications Intake Note: Patient presents today for RA follow up. Allergies latex Allergy (Verified 06/19/24 13:42) Rash Sulfa (Sulfonamide Antibiotics) Allergy (Verified 06/19/24 13:42) Rash HPI HPI discuss medications: Details: She was diagnosed with provoked left leg DVT on Eliquis. She had influenza virus then norovirus and was bed-bound for a long time as she recovered from her illnesses. She also had a fall and subsequently developed fracture in her pelvis. She has had dyspnea from uncontrolled asthma. She continues to take prednisone 5 mg daily. Morning stiffness lasts hours. [facility] Medical History Endometriosis Vitamin B 12 deficiency Restless leg syndrome Multiple pulmonary nodules Lymphopenia Hypertension Hyperlipidemia Surgical History History of bunionectomy Family History Mother Heart disease Other Pancreatic cancer Review of Systems Const All systems reviewed & are unremarkable except as noted in HPI and below Physical Exam Vital Signs: Last Vital Signs Pulse 77 06/19/24 13:54 BP 130/60 06/19/24 13:54 Pulse Ox 97 06/19/24 13:54 Oxygen Delivery Method Room Air 06/19/24 13:54 BMI result Body Mass Index 29.2 Const Other: General: Comfortable CVS: RRR Respiratory: clear to auscultation bilaterally. Good respiratory effort Skin: No lesions seen MSK: Synovitis right 4th and 5th MCP with tenderness present. Chronic synovial thickening left 2nd and 3rd MCP. Synovitis of right 3rd PIP. [place]ber[place] nodes present. Normal range of motion of upper extremities. Good external rotation of bilateral hips. Knee flexion 110 degrees bilateral. No MTP tenderness. Edema of left calf and dorsal foot. Assessment & Plan Assessment & Plan (1) Rheumatoid arthritis: Comment: Inflammatory arthritis is not controlled on prednisone 5 mg daily and hydroxychloroquine 200 mg daily. She has a new provoked DVT of her left lower extremity on Eliquis since last visit. Contraindication to treatment with Xeljanz and Rinvoq. TNF inhibitor is indicated. We discussed adding on DMARD therapy Humira. Discussed side effects, benefits and drug monitoring. 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 History of CKD. Triggered by COVID-19 infection 09/2021. She was previously treated with double therapy HCQ and MTX. 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 She previously required bilateral knee cortisone injections and left wrist cortisone injection (12/22/2021). Prednisone 5 mg daily started ATC 12/2023 Dr. Arita. Code(s): M06.9 - Rheumatoid arthritis, unspecified Category: Medical Qualifiers: Rheumatoid arthritis location: multiple sites Rheumatoid factor presence: with rheumatoid factor Qualified Code(s): M05.79 - Rheumatoid arthritis with rheumatoid factor of multiple sites without organ or systems involvement Plan: Increase prednisone to 7.5 mg daily Labs for drug monitoring on high-risk medication ordered Continue hydroxychloroquine 200 mg daily. 08/2023 no evidence of Plaquenil associated maculopathy on clinical exam. Prior testing October 2022 on visual field test red shows paracentral scotomas superior, visual field white August 2023 was stable to previous. On OCT right eye there is borderline thinning of parafocal non changing since 10/2022. Left eye OCT is unchanged. She has an appointment for follow-up hydroxychloroquine surveillance August 2024. LIAM Foss. When Humira is approved, she will need nurse visit for 1st dose administration in office. Four weeks after nurse visit she will need labs for drug monitoring: CBC, creatinine, AST, ALT Return to clinic in 3 months (2) Other assisted (current) drug therapy: Code(s): Z79.899 - Other assisted (current) drug therapy Category: Medical Plan: See above Orders: Orders Complete Blood Count Auto Diff Today Z79.60 - intermediate project manager (current) use of unspecified immunomodulators and immunosuppressants Creatinine Today Z79.60 - intermediate project manager (current) use of unspecified immunomodulators and immunosuppressants Erythrocyte Sedimentation Rate Today Z79.899 - Other assisted (current) drug therapy Alanine Aminotransferase Today Z79.60 - assisted (current) use of unspecified immunomodulators and immunosuppressants Aspartate Amino Transferase Today Z79.60 - intermediate project manager (current) use of unspecified immunomodulators and immunosuppressants C Reactive Protein Today Z79.899 - Other assisted (current) drug therapy Medications: New prednisone Take 3 tablets daily with food. 2.5 mg PO DAILY 90 tabs 2RF Coding Level of Care Code Est Pt Level 4 (28448) Complex EM visit Add On G2211 Diagnoses Rheumatoid arthritis involving multiple sites with positive rheumatoid factor M05.79 Rheumatoid arthritis location: multiple sites Rheumatoid factor presence: with rheumatoid factor Other assisted (current) drug therapy Z79.899
[2024-06-19 13:54] VITALS: BP 130/60; PULSE 77; O2SAT 97; BMI 29.2
--- OUTSIDE RECORDS SUMMARY | 2024-06-19 16:37 | XMS_ITS | Clinical Summary ---
Author Organization [facility] Address [address] [place] [address] Care Team Providers Care Toilet And Laundry Soap Supervisor Name Role Phone Unavailable Primary Care Provider Unavailabl e Allergies Active Allergy Reactions Criticality Noted Date Comments Latex Rash/Dermatitis Low 05/22/2024 Sulfa Antibiotics Rash/Dermatitis Medium 05/22/2024 Medications Medication Sig Dispensed Refills Start Date End Date Status albuterol (PROVENTIL) (0.083%) 2.5 mg/3 mL nebulizer solution USE 1 AMPLE IN NEBULIZER EVERY 6 HOURS NEEDED FOR WHEEZING/SHORTNESS OF BREATH 02/21/2024 Active Eliquis 2.5 MG tablet 1 tablet by Mouth/Oral Cavity route every 12 hours. 05/16/2024 Active Eliquis 5 MG tablet TAKE 2 TABLETS BY MOUTH TWO TIMES A DAY FOR 7 DAYS (05/17 THROUGH 05/24) FOLLOWED BY 1 TABLET BY MOUTH TWO TIMES A DAY FOR 23 DAYS. 05/17/2024 Active cephalexin (KEFTAB) 500 MG tablet 05/20/2024 Active doxycycline (VIBRA-TABS) 100 MG tablet 1 tablet by Mouth/Oral Cavity route every 12 hours. 04/21/2024 Active Trelegy Ellipta 200-62.5-25 MCG/ACT inhaler 03/21/2024 Active guaiFENesin-codeine (ROBITUSSIN AC) liquid TAKE 10 ML BY MOUTH EVERY 4 HOURS NEEDED FOR COUGH 04/21/2024 Active predniSONE (DELTASONE) 50 MG tablet TAKE 1 TABLET BY MOUTH EVERY DAY FOR 2 DAYS (05/18 & 05/19) THEN RESUME HOME DOSE 5 MG EVERY DAY. 05/17/2024 Active Encounters Date Type Department Care Team Description 06/08/2024 Orders Only [facility] [employer] [place] [address] [place] [address] Davion Fraga MD 06/04/2024 Orders Only [facility] [employer] [place] [address] [place] [phone] Hammad aRyo MD Uterine mass (Primary Dx) 05/24/2024 Orders Only [facility] [employer] [place] [address] [place] [address] Davion Fraga MD 05/22/2024 3:30 PM EDT Office Visit [facility] [employer] [place] [address] [place] [address] Hammad Rayo MD Pelvic mass (Primary Dx) from Last 3 Months Social History Tobacco Use Types Packs/Day Years Used Date Smoking Tobacco: Never Assessed Sex and Gender Information Value Date Recorded Sex Assigned at Female 05/22/2024 9:09 AM EDT Gender Identity Female 05/22/2024 9:09 AM EDT Sexual Orientation Not on file Last Filed Vital Signs Vital Sign Reading Time Taken Comments Blood Pressure - - Pulse - - Temperature 36.1 ??C (97 ??F) 05/22/2024 3:51 PM EDT Respiratory Rate - - Oxygen Saturation - - Inhaled Oxygen Concentration - - Weight - - Height - - Body Mass Index - - Plan of Treatment Health Maintenance Due Date Last Done Comments DTaP/Tdap/Td Vaccines (1 - Tdap) 1954 Pneumococcal Vaccines 50+ (1 of 1 - PCV) 1985 Zoster (Shingles) Vaccine (1 of 2) 1985 DXA Bone Density (Females,Ages 65 and older) 2000 RSV Vaccine 60 years and older and Patients (1 - 1-dose 75+ series) 2010 Influenza Vaccine 10/13/2023 12/22/2021, , 01/28/2021, Additional history exists COVID-19 Vaccine (2 - season) 2023 10/10/2020 Hepatitis B Vaccines Aged Out No long er eligible based on patient's age to complete this topic Procedures Procedure Name Priority Date/Time Associated Diagnosis Comments AMB REFERRAL TO GYNECOLOGIC ONCOLOGY Routine 06/08/2024 2:[address] ABD AND PELVIS WITHOUT CONTRAST Routine 05/24/2024 2:26 PM EDT from Last 3 Months Results * Amb Referral to Gynecologic Oncology (06/08/2024 2:57 PM EDT) External Provider OUTPATIENT REFERRAL ORDERABLES * CT ABD AND PELVIS WITHOUT CONTRAST (05/24/2024 2:26 PM EDT) Anatomical Region Laterality Modality Other External Provider MD MARÍA CHURCHILL ES from Last 3 Months
--- OUTSIDE RECORDS SUMMARY | 2024-06-19 16:38 | XMS_ITS | Data Portability ---
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 Plan of Treatment Reminders Order Date Submit Date Provider Last Modified By Organization Details Last Modified Time Details Appointments None record ed. Lab None record ed. Referral pulmon ologis t referr al 2023 024 marco [facility], [address] [facility], [address], [place], [address], 4 16:11:05 Procedures pulmon venu stress test, simple (PROC) 2021 022 tchadha In-House Test, For Internal Use Only, Do Not Delete/merge, [id number] 2 11:54:35 Surgeries None record ed. Imaging XR, chest, 2 view 2023 024 [facility], [facility], All Locations, [place], [address], 4 19:53:31 CT, chest, w/o contra st 2022 024 [facility] [address], [address], [place], [address], 4 15:17:30 CT, chest, w/o contra st - PLEASE CALL RAMY Leonardo TO [place] [facility]NOR APPT THANK YOU 2021 023 [facility], [facility], All Locations, [place], [address], 4 10:49:10 US, echoca rdiogr am 2021 022 [facility], [facility], All Locations, [place], [address], 18:14:33 Medication Orders torsem tea 10 mg tablet 2023 024 [facility], [address], [place], [address], 13:10:13 Patient TargetsNo targets recorded. Patient Instructions Encounter Date Encounter Id Patient Instructions Last Modified By Organization Details Last Modified Time 01/26/2022 [id number] complete PFT w/ post bronchodilator spirometry* JONNATHAN Not available 01/31/2023 08:01:25 Patient understands instructions and will seek medical attention if symptoms worsen as directed. latoya Not available 01/21/2022 16:11:09 06/18/2022 [id number] Patient understands instructions and will seek medical attention if symptoms worsen as directed. [email or web address] Not available 06/10/2022 13:09:06 02/07/2023 [id number] Patient understands instructions and will seek medical attention if symptoms worsen as directed. [email or web address] Not available 02/02/2023 09:01:25 07/08/2023 [id number] pneumonia: care instructions tchadha Not available 07/08/2023 13:10:13 Patient understands instructions and will seek medical attention if symptoms worsen as directed. [email or web address] Not available 07/06/2023 10:35:56 07/19/2023 [id number] Patient understands instructions and will seek medical attention if symptoms worsen as directed. [email or web address] Not available 07/13/2023 10:35:20 Reason for Referral Heading Up Machine Operator Referral for C hronic obstructive pulmonary disease Referring Physician: Evgeny Rodriguez, Internal Medicine, Encounter Date: 07/08/2023 Results Created Date Observation Date Name Description Value Unit Range Abnormal Flag Note LastModifiedBy Organization Detail LastModifiedTime 01/27/20 22 01/26/2022 pulmo nary stres s test, simpl e (PROC ) Unknown Analyte 95 Not Available In-Jose Francicso se Test For Internal Use Only, Do [...] For Internal Use Only, Do Not Delete/merge, [id number] 01/14/2022 10:05:52 01/15/2001/14/2022 CT, chest , w/o contr ast INDICA TION: J44.9 Chroni c obstru ctive pulmon venu diseas e, unspec ified. TECHNI QUE: CT CHEST WITHOU T CONTRA ST Multip lanar reform ats were obtain ed. Radiat ion dose optimi zation techni que was utiliz ed. COMPAR RICH: er 2020 FINDIN GS: Soft tissue detail [...] Gareth Segovia, Homero willson Sign Date: [id number] [facility] All Locations, [place], [address], 02/03/2024 19:42:38 01/26/20 22 01/19/2022 compl ete PFT w/ post [facility] hodil ator ar metry * No observ ation record ed. tchadha Not Available 2021 08:31:12 02/08/20 22 02/03/2022 , echo ardio gram No observ ation record ed. [id number] [facility] All Locations, [place], [address], 02/03/2024 20:31:07 01/22/20 23 01/18/2023 CT, chest [...] icatio ns. Electr onical ly Signed By: Rool Walter Sign Date: [id number] [facility] All Locations, [place], [address], 02/03/2024 19:39:04 02/01/20 23 01/25/2023 compl ete PFT w/ post [facility] hodil ator ar metry * No observ ation record ed. tchadha In-House Test For Internal Use Only, Do Not Delete/merge, [id number] 01/31/2023 09:53:43 06/01/19 24 05/24/2023 CT, chest [...] Note: [employer], [facility] and the [place] preven tative servic [...] Board Certif ied Radiol ogist Sign Date: tctoledo hospitalzita [facility] All Locations, [place], [address], 07/18/2023 20:53:53 Result Notes None recorded. Problems Name Problem SNOMED Code Status Onset Date Resolution Date Notes Provider Name and Address Organization Details Recorded Time Pulmonar y hyperten sarai 89260664 Completed 201707/19/2023 Arnold Paulino Jr [facility], [facility] 4 12:50:37 Rheumato id arthriti s 17290593 Active 2021 ON PREDNISO NE...... [facility] 3 13:08:06 Venous varices 941111322 Completed 201707/19/2023 [facility] 4 12:50:37 Serum creatini ne above referenc e range 582405593 Completed 201807/19/2023 Arnold Paulino Jr [facility], [facility] 4 12:50:37 Steatosi s of liver 759541613 Completed 202007/19/2023 Arnold Paulino Jr [facility], [facility] 4 12:50:37 Pneumoni a 680586329 Completed 07/19/2023 Arnold Paulino Jr [facility], [facility] 4 12:50:37 Disorder of bone and articula r cartilag e 838927205 Completed 07/19/2023 Arnold Paulino Jr [facility], [facility] 4 12:50:37 Dyspnea 929067065 Completed 07/19/2023 [facility] 4 12:50:37 Disorder of lipid metaboli sm 636057787 Completed 07/19/2023 [facility] 4 12:50:37 Orthosta tic hypotens ion 57800575 Completed 201707/19/2023 Arnold quintanilla, [facility], [facility] 4 12:50:37 Osteopen ia 265110722 Completed 07/19/2023 Arnold Paulino Jr null, [facility], [facility] 4 12:50:37 Vitamin D deficien cy 27253509 Completed 07/19/2023 Arnold Paulino Jr null, [facility], [facility] 4 12:50:37 Elevated blood-pr essure reading without diagnosi s of hyperten sarai 836093870 Completed 201607/19/2023 Arnold Paulino Jr null, [facility], [facility] 4 12:50:37 Disorder of vitamin B12 172823472 Completed 201507/19/2023 Arnold quintanilla, [facility] Physician [facility], [facility] 4 12:50:37 Lighthea dedness 055939010 Completed 07/19/2023 Arnold Paulino Jr null, [facility] Physician [facility], [facility] 4 12:50:37 Vertigo 530485656 Completed 201707/19/2023 Arnold Paulino Jr null, [facility], [facility] 4 12:50:37 Dizzines s 817350572 Completed 201707/19/2023 Arnold Paulino Jr null, [facility], [facility] 4 12:50:37 Foot pain 07520535 Completed 07/19/2023 Arnold Paulino Jr null, [facility], [facility] 4 12:50:37 Hip pain 51367903 Completed 07/19/2023 Arnold Paulino Jr null, [facility], [facility] 4 12:50:37 Cough 28114098 Completed 201707/19/2023 Arnold Paulino Jr null, [facility], [facility] 4 12:50:37 Essentia l hyperten sarai 12169657 Completed 201607/19/2023 Arnold Paulino Jr null, [facility], [facility] 4 12:50:37 Supraven tricular tachycar jad 5802182 Completed 201807/19/2023 Arnold Paulino Jr null, [facility], [facility] 4 12:50:37 Cyst of kidney 079944654 Completed 201907/19/2023 Arnold Paulino Jr null, [facility], [facility] 4 12:50:37 COVID-19 843902533 Completed 202007/19/2023 Arnold Paulino Jr null, [facility], [facility] 4 12:50:37 Leukopen ia 87820628 Completed 201807/19/2023 Arnold Paulino Jr null, [facility], [facility] 4 12:50:37 Tobacco dependen ce syndrome 03835154 Completed 07/19/2023 Arnold Paulino Jr null, [facility], [facility] 4 12:50:37 Diffuse intersti tial pulmonar y fibrosis 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 CTC 06/04.... .?? RA?..... ..DLCO NORMAL.. 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 285626365 Completed 01/26/2020 Evgeny Rodriguez MD [address], [place], [address], [facility] Physician [facility], [facility] 0 18:02:26 Urinary tract infectio us disease 84553167 Completed 01/09/2020 Evgeny Rodriguez MD [address], [place], [address], [facility], [facility] 0 07:09:26 Hyperten sive disorder 63195298 Completed 01/26/2020 Evgeny Rodriguez MD [address], [place], [address], [facility], [facility] 2 10:17:02 Multiple nodules of lung 722011385 Completed 201507/19/2023 Arnold Paulino Jr [facility], [facility], [facility] 4 12:50:37 Gastroes ophageal reflux disease 585775846 Completed 01/26/2020 Evgeny Rodriguez MD [address], [place], [address], [facility], [facility] 0 18:02:04 Patient encounte r status 528334038 Completed 01/09/2020 Evgeny Rodrgiuez MD [address], [place], [address], [facility], [facility] 0 07:07:40 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 ON B12 SHOTS: CARDONA Arnold quintanilla, [facility], [facility] 3 13:08:04 Allergic rhinitis 78227941 Active Arnold quintanilla, [facility], [facility] 3 13:08:06 Gallston e 808440780 Active SEEN ON CTC Arnold quintanilla, [facility], [facility] 3 13:08:04 Syncope 277711694 Completed 201707/19/2023 Arnold quintanilal, [facility] 4 12:50:37 Gastro-e sophagea l reflux disease with esophagi tis 773129408 Active 2019 Arnold Jefferson Jr [facility], [facility] 3 13:08:04 Essentia l hyperten sarai 39844523 Completed 201901/26/2021 Arnold Paulino Jr [facility], [facility] 4 12:50:37 Chronic obstruct [place] pulmonar y disease 54467179 Active 2019 MODERATE ........ 54%..... ...20 pk yrs...QU IT 1976 Evgeny Rodriguez MD [address] [address], [place], [address], [facility], [facility] 2 10:17:03 Hyperten sive disorder 43846444 Active 2020 Arnold Paulino Jr [facility], [facility] 3 13:08:05 Notes:Some problems listed i n Documents: #[id number], #[id number] could not be added to this patient's chart. Please review these documents and add these problems to the patient's chart manually as needed. Problem Notes None recorded. Procedures Surgical History Date Name Laterality Status Provider Name and Address Organization Details Recorded Time 05/08/19 25 G2211 cancelled Arnold Paulino Jr [facility], [facility] 04/04/2024 11:53:18 07/19/19 24 G2211 completed Arnold Paulino Jr [facility] 07/13/2023 10:35:16 07/05/19 24 G2211 cancelled Arnold Paulino Jr [facility] 06/29/2023 10:29:47 03/14/19 20 bone density scan completed Richard Hunt [facility], [facility] 02/18/2020 15:27:11 12/13/19 19 mammography completed Richard Hunt [facility], [facility] 02/18/2020 15:26:54 03/14/19 03 Colonoscopy completed Richard Hunt [facility], [facility] 02/18/2020 15:26:38 Imaging Results Imaging Date Name Status LastModified by Organization Details LastModified Time 01/05/2022 spirometry testing* completed [email or web address] In-House Test For Internal Use Only, Do Not Delete/merge, [id number] 01/14/2022 10:05:52 01/14/2022 CT, chest, w/o contrast completed [id number] [facility] Phys[facility] All Locations, [place], [address], 02/03/2024 19:42:38 01/19/2022 complete PFT w/ post bronchodilator spirometry* completed Information not available 01/25/2022 08:31:12 02/03/2022 US, echocardiogram completed [id number] [facility] All Locations, [place], [address], 02/03/2024 20:31:07 01/18/2023 CT, chest, w/o contrast completed [id number] [facility] All Locations, [place], [address], 02/03/2024 19:39:04 01/25/2023 complete PFT w/ post bronchodilator spirometry* completed [email or web address] In-House Test For Internal Use Only, Do Not Delete/merge, [id number] 01/31/2023 09:53:43 05/24/2023 CT, chest, w/o contrast completed Information not available 06/01/2023 12:13:15 07/18/2023 XR, chest, 2 view completed [email or web address] [facility] All Locations, [place], [address], 07/18/2023 20:53:53 Procedure Notes None recorded. Medical Equipment None Reported. Allergies Allergen ID Allergen Name Allergen Category Reaction Reaction Severity Criticality Documentation Date Start Date Code Code System Note Provider Name and Address Organization Details Recorded Time 1858439 latex environme nt,medica tion hives Not available Not available 06/10/2022 64034 91 RxNorm [facility]ton [facility], [facility] 13:07:48 875111 Substance with sulfonami de structure and antibacte rial mechanism of action (substanc e) medicatio n Not available Not available Not available 02/14/2020 19478 8003 SNOMED Marsha quintanilla [place] - [facility], [facility] 0 07:25:44 Medications Name Sig Start [...] Available Not Available Not Available Fluad Quad 0714-4436(6 5yr up)(PF) 60 mcg (15 mcg x [...] Updated DateTime 2 152.4 cm 29.5 kg/m2 43332.4 5 g 0 97.6 [degF] 71 /min 93 % 93 % 154 mm[Hg] 75 mm[Hg] 150 mm[Hg] 76 mm[Hg] Karmen Oropeza [facility], [place] 2 11:05:44 Date Recorded Body height Body mass index (BMI) Body weight Pain severity - 0-10 verbal numeric rating [Score] - Reported Body temperature Heart rate Oxygen saturation Oxygen saturation in Arterial blood by Pulse oximetry Systolic blood pressure Diastolic blood pressure Systolic blood pressure Diastolic blood pressure Provider Name and Address Organization Details Last Updated DateTime 3 152.4 cm 29.3 kg/m2 76003.8 6 g 0 98.1 [degF] 89 /min 93 % 93 % 162 mm[Hg] 69 mm[Hg] 138 mm[Hg] 74 mm[Hg] Naa Linares [facility], [facility] 3 13:42:10 Date Recorded Body height Body mass index (BMI) Body weight Body temperature Pain severity - 0-10 verbal numeric rating [Score] - Reported Oxygen saturation Oxygen saturation in Arterial blood by Pulse oximetry Heart rate Systolic blood pressure Diastolic blood pressure Systolic blood pressure Diastolic blood pressure Provider Name and Address Organization Details Last Updated DateTime 3 152.4 cm 27 kg/m2 80539.7 5 g 97.9 [degF] 0 94 % 94 % 69 /min 150 mm[Hg] 68 mm[Hg] 135 mm[Hg] 69 mm[Hg] Richard Hunt [facility] 3 11:37:50 Date Recorded Body height Body mass index (BMI) Body weight Pain severity - 0-10 verbal numeric rating [Score] - Reported Oxygen saturation Oxygen saturation in Arterial blood by Pulse oximetry Heart rate Body temperature Systolic blood pressure Diastolic blood pressure Provider Name and Address Organization Details Last Updated DateTime 4 152.4 cm 29.5 kg/m2 49765.4 5 g 0 96 % 96 % 81 /min 97.8 [degF] 137 mm[Hg] 70 mm[Hg] Richard Hunt [facility] 4 12:16:41 Date Recorded Body height Body mass index (BMI) Body weight Pain severity - 0-10 verbal numeric rating [Score] - Reported Oxygen saturation Oxygen saturation in Arterial blood by Pulse oximetry Heart rate Body temperature Systolic blood pressure Diastolic blood pressure Provider Name and Address Organization Details Last Updated DateTime 4 152.4 cm 28.7 kg/m2 35499.0 8 g 0 95 % 95 % 87 /min 97.8 [degF] 122 mm[Hg] 65 mm[Hg] Richard Hunt [facility] 4 12:37:48 Social History Question Answer Notes LastModified by Organizat ion Details LastModified Time Tobacco Smoking Status Former Smoker Richard Hunt [facility] 02/18/2020 15:25:33 Do You Have An Advance Directive? No Information not available 01/26/2021 Is Your Home Air Conditioned? Yes [email or web address] Information not available 02/07/2023 What Is Your Level Of Alcohol Consumption? Occasional [email or web address] Information not available 02/18/2020 Are You Currently Sexually Active With Anyone Who Has Traveled (within The Last 12 Weeks) To A Zika-affected Area? No [email or web address] Information not available 02/07/2023 Is Blood Transfusion Acceptable In An Emergency? Yes [email or web address] Information not available 07/19/2023 How Much Tobacco Do You Chew? None Information not available 02/18/2020 In The 14 [...] Virus Disease Patient Without Appropriate PPE? No [email or web address] Information not available 02/07/2023 Do You Reside In Or Have You Traveled To An Area Where Ebola Virus Transmission Is Active? No [email or web address] Information not available 02/07/2023 Do You Or Have You Ever Used E-cigarettes Or Vape? Never Used Electronic Cigarettes [email or web address] Information not available 02/18/2020 Do You Have An Electrostatic Air Filter? No [email or web address] Information not available 02/07/2023 Have You Been Exposed To Chemicals Or Toxins? No [email or web address] Information not available 02/07/2023 What Is The Fluoride Status Of Your Home? Unknown [email or web address] Information not available 02/07/2023 When Did You Quit Smoking? 16+yearssindiana lara 1976 Information not available 02/07/2023 Do You Have A Humidifier? No [email or web address] Information not available 02/07/2023 Where Do You Live? SingleLevelHouse [email or web address] Information not available 02/07/2023 Alcohol Use No [email or web address] Informatio n not available 01/26/2021 Do You Smoke? No [email or web address] Informat ion not available 01/26/2021 Year Quit Tobacco Use 1977 [email or web address] Information not available 02/14/2020 Marital Status Informatio n not available 02/07/2023 Do You Have A Medical Power Of Supervisor Press Room? No Information not available 02/07/2023 What Was The Date Of Your Most Recent Tobacco Screening? 07/19/2023 [email or web address] Information not available 07/19/2023 What Is Your Current Pack Years? 30ormorepackyears Information no t available 02/07/2023 Have You Ever Been Counseled For Unhealthy Alcohol Use? No Information not available 02/07/2023 What Is Your Relationship Status? [email or web address] Information not available 01/26/2021 Do You Use Your Seat Belt Or Car Seat Routinely? Yes Information not available 02/07/2023 At What Age Did You Start Smoking Tobacco? 21 Information not available 01/26/2021 Do You Or Have You Ever Used Smokeless Tobacco? Never Used Smokeless Tobacco [email or web address] Information not available 02/18/2020 Are There Any Smokers In Your House? No [email or web address] Information not available 02/07/2023 How Much Tobacco Do You Smoke? 1 PPD [email or web address] Information not available 02/18/2020 Do You Use Any Illicit Or Recreational Drugs? No Information not available 02/07/2023 On What Date Was Tobacco Cessation Counseling Provided? 07/19/2023 [email or web address] Information not available 07/19/2023 How Many Years Have You Smoked Tobacco? 20 Information not available 01/26/2021 Do You Or Have You Ever Used Any Other Forms Of Tobacco Or Nicotine? No Information not available 02/07/2023 Sex: Female Functional Status Question Answer Note LastModified by Organizat ion Details LastModified Time Do you have transportation difficulties? No [email or web address] Information not available 02/07/2023 Are you able to care for yourself? Yes Information not available 02/07/2023 What is your exercise level? None Information not available 01/26/2021 Mental Status None recorded. Family History Relationship Description Onset Age of this Age Resolved Age Notes LastModified by Organization Details LastModified Time Mother Malignant tumor of pancreas [email or web address] Not available 07:26:49 Medical History Condition Response [...] conjugate PCV 13 7 completed Not Available [facility] 04:44:00 pneumococcal polysaccharide PPV23 7 completed Not Available [facility] 02/06/2023 04:44:00 Influenza, split virus, trivalent, preservative 2 completed FRIEDA Helm - [facility], [facility] 06/18/2022 13:54:23 Pneumococcal conjugate PCV 13 5 completed Cindy Oakley null, [facility], [facility] 06/18/2022 13:54:23 Influenza, high-dose, trivalent, PF 4 completed Cindy Marshall null, [facility], [facility] 06/18/2022 13:54:23 zoster recombinant 0 completed Cindy Oakley null, [facility], [facility] 06/18/2022 13:54:23 Influenza, high-dose, trivalent, PF 7 completed Cindy Oakley null, [facility], [facility] 06/18/2022 13:54:23 influenza, unspecified formulation 8 completed Marsha quintanilla, [facility], [facility] 02/14/2020 07:22:33 Influenza, high-dose, trivalent, PF 5 completed Arnold Paulino Jr null, [facility], [facility] 06/10/2022 13:08:16 Influenza, adjuvanted, quadrivalent, PF 0 completed Cindy Oakley null, [facility], [facility] 06/18/2022 13:54:23 Influenza, split virus, quadrivalent, preservative 9 completed Marsha quintanilla, [facility], [facility] 02/14/2020 07:22:33 zoster live 3 completed Cindy Oakley null, [facility], [facility] 06/18/2022 13:54:23 zoster live 3 completed Marsha Kirkpatrick null, [facility], [facility] 02/14/2020 07:22:33 Tdap 4 completed Marsha Kikrpatrick null, [facility], [facility] 02/14/2020 07:22:33 pneumococcal polysaccharide PPV23 8 completed Marsha quintanilla, [facility] [facility], [facility] 02/14/2020 07:22:33 Influenza, split virus, trivalent, preservative 2 completed Marsha quintanilla, [facility], [facility] 02/14/2020 07:22:33 Influenza, split virus, quadrivalent, preservative 6 completed Marsha Kirkpatrick null, [facility], [facility] 02/14/2020 07:22:33 influenza nasal, unspecified formulation 3 completed Marsha Kirkpatrick [facility], [facility] 02/14/2020 07:22:33 Influenza, split virus, quadrivalent, preservative 0 completed Marsha Kirkpatrick [facility], [facility] 02/14/2020 07:22:33 Influenza, high-dose, trivalent, PF 6 completed Cindy Oakley [facility], [facility] 06/18/2022 13:54:23 Novel [id number] 9 completed Cindy Oakley [facility], [facility] 06/18/2022 13:54:23 zoster recombinant 1 completed Cindy [facility], [facility] 06/18/2022 13:54:23 Influenza, adjuvanted, quadrivalent, PF 1 completed Cindyajay Oakley [facility], [facility] 06/18/2022 13:54:23 Influenza, split virus, quadrivalent, preservative 2 completed Not Available [facility] 02/06/2023 04:44:00 Influenza, split virus, quadrivalent, preservative 6 completed Not Available [facility] 02/06/2023 04:44:00 Influenza, split virus, quadrivalent, preservative 0 completed Not Available [facility] 02/06/2023 04:44:00 influenza, unspecified formulation 2 completed Anrold Paulino Jr [facility], [facility] 06/10/2022 13:08:16 Novel [id number], all formulations 9 completed Not Available [facility] 02/06/2023 04:44:00 zoster live 3 completed Not Available [facility] 02/06/2023 04:44:00 zoster live 3 completed Not Available [facility] 02/06/2023 04:44:00 Past Encounters Encounter ID Performer Location Encounter Start Date Encounter Closed Date Diagnosis/Indication Diagnosis SNOMED-CT Code Diagnosis ICD10 Code Diagnosis Note [id number] Evgeny Rodriguez MD [facility] [address] [place] [address] 02/18/2020 14:53:05 02/18/2020 15:43:34 Body mass index 30+ - obesity 110067957 E66.9 Z68.30 weight issues discussed and informatio n on weight loss given. Needs follow up on weight control as scheduled. Education handout on diets given. Exercise counseling done. Will arrange referral for dietitian, nutritioni st, Physical/o ccupationa l therapy as needed or desired. Also will consider pharmaceut ical and supplement al interventi ons Obesity 610898336 E66.9 Diet education 25072772 Z71.3 as above Chronic ob structive pulmonary disease 31600824 J44.9 Patient COPD is relatively stable Continue Stiolto and Ventolin Recheck CT chest in 1 year as well as complete PFTs Palpitations 56220890 R0 0.2 Allergic rhinitis 136141 04 J30.9 Advised Trial of Flonase 1 puff each nostril BID. May try OTC Nasacort as well. Use Gagandeep -Med Sinus Rinse (OTC) flushes 4-6 times / day Dyspnea on exertion 6084 5006 R06.09 Essential hypertension 57727092 I10 Multiple n odules of lung 126583106 R91.8 [id number] Evgeny Rodriguez MD [facility] [address] [place] [place] [address] 01/26/2021 09:55:49 01/26/2021 15:12:27 Body mass index 30+ - obesity 179447627 Z68.31 weight issues discussed and informatio n on weight loss given. Needs follow up on weight control as scheduled. Education handout on diets given. Exercise counseling done. Will arrange referral for dietitian, nutritioni st, Physical/o ccupationa l therapy as needed or desired. Also will consider pharmaceut ical and supplement al interventi ons Obesity 564388876 E66.9 see BMI above for details Diet education 18837893 Z71.3 as above Dyspnea on exertion 6084 [...] conditioni ng Chronic ob structive pulmonary disease 45406816 J44.9 chronic {{complain t conditio n disease [...] Ventolin inhaler Multiple n odules of lung 304843246 R91.8 chronic {{complain t conditio n disease [...] on Fleischner Society Guidelines Hypertensive disorder 38 862931 I10 Chronic {{complain t conditio n* disease [...] Follow up as scheduled. Depression screening 171 125683 Z13.89 Patient scored __LOW___DE PRESSION SCREENING: PHQ-9 performed today, additional time spent for staff scoring and provider review for completion of chart. [id number] Evgeny Rodriguez MD [facility] [address] [facility] [address] [place] [address] 01/05/2022 09:18:46 01/05/2022 10:28:34 Hypertensive disorder 87106356 I10 Chronic {{complain t conditio n* disease [...] this time Multiple n odules of lung 551175629 R91.8 chronic {{complain t conditio n disease [...] based on Fleischner Society Guidelines Allergic rhinitis 596425 04 J30.9 Chronic {{complain t conditio n [...] exac erbation of chronic obstructive pulmonary disease 965550557 J44.1 Chronic {{complain t conditio n disease [...] No Antibiotic s necessary at this time [id number] Evgeny Rodriguez MD [facility] [address] [place] [address] 01/26/2022 10:44:19 01/26/2022 11:55:05 Chronic obstructive pulmonary disease 18884371 J44.9 Chronic {{complain t conditio n disease [...] provided Recheck complete PFTs Hypertensive disorder 38 157534 I10 Chronic {{complain t conditio n* disease [...] this time Multiple n odules of lung 452432900 R91.8 chronic {{complain t conditio n disease [...] based on Fleischner Society Guidelines Allergic rhinitis 417013 04 J30.9 Chronic {{complain t conditio n [...] 2 puffs BID as well Pulmonary hypertension 39640900 I27.20 Chronic {{complain t conditio n disease [...] Check echocardio gram Atheroscle rosis of aorta 77679644 I70.0 chronic {{complain t conditio n disease [...] take OTC antacids in case of heartburn [id number] Temiko Rodriguez MD [facility] [address] [place] [address] 06/18/2022 13:35:13 06/18/2022 14:51:34 Chronic obstructive pulmonary disease 93221812 J44.9 Chronic {{complain t conditio n disease [...] Try to do it BID Allergic rhinitis 074941 04 J30.9 Chronic {{complain t conditio n [...] puffs BID as well Hypertensive disorder 38 035307 I10 Chronic {{complain t conditio n* disease [...] at this time Atheroscle rosis of aorta 95956545 I70.0 chronic {{complain t conditio n disease [...] antacids in case of heartburn Pulmonary hypertension 41557143 I27.20 Chronic {{complain t conditio n disease [...] Failure at this time Rheumatoid arthritis 698 80289 M06.9 chronic {{complain t conditio n disease [...] Plaquenil Chronic ki dney disease stage 3A 062445066 N18.31 chronic {{complain t conditio n disease [...] Continue to monitor closely 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 chronic {{complain t conditio n disease [...] for rheumatoid arthritis Continue to monitor closely [id number] Evgeny Rodriguez MD [facility] [address] [facility] [address] [place] [address] 02/07/2023 11:22:34 02/07/2023 12:08:43 Chronic obstructive pulmonary disease 26902334 J44.9 Chronic {{complain t conditio n disease [...] CT chest in 4 months Allergic rhinitis 844096 04 J30.9 Chronic {{complain t conditio n [...] / Nasacort 2 puffs BID as well [id number] Evgeny Rodriguez MD [facility] [address] [place] [address] 07/08/2023 12:03:14 07/08/2023 13:05:19 Allergic rhinitis 13830692 J30.9 Chronic {{complain t conditio n disease [...] puffs BID as well Hypertensive disorder 38 710600 I10 Chronic {{complain t conditio n* disease [...] at this time Atheroscle rosis of aorta 80859139 I70.0 chronic {{complain t conditio n disease [...] heartburn Chronic ki dney disease stage 3A 440325220 N18.31 chronic {{complain t conditio n disease [...] Continue to monitor closely Immunodefi ciency disorder 779826559 D84.81 chronic {{complain t conditio n disease [...] arthritis Continue to monitor closely Pulmonary hypertension 09085893 I27.20 Chronic {{complain t conditio n disease [...] this time Chronic ob structive pulmonary disease 05608119 J44.9 Chronic {{complain t conditio n disease [...] chest in 4 months Rheumatoid arthritis 698 08770 M06.9 chronic {{complain t conditio n disease [...] on Plaquenil 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 Needs monitoring Prescripti on drug management : No meds given at this time. Follow up as scheduled. Patient has patchy pulmonary fibrosis seen on imaging studies in the past There is no evidence of idiopathic pulmonary fibrosis or significan t reduction in diffusing capacity or hypoxemia Continue to monitor closely Pneumonia 851214602 J18. 9 Cor pulmonale 72885484 I 27.9 Chronic and unstable Patient has edema secondary to use of steroids Torsemide 10 mg a day for a few days and then as needed [id number] Evgeny Rodriguez MD [facility] [address] [place] [address] 07/19/2023 12:31:38 07/19/2023 12:53:00 Chronic obstructive pulmonary disease 86726352 J44.9 Chronic {{complain t conditio n disease [...] to do it BID Hypertensive disorder 38 885160 I10 Chronic {{complain t conditio n* disease [...] Policy Number Policy Azul Covered Member ID Zaul Member ID Guarantor Name 01/26/2022 1 [employer] (MEDICARE REPLACEMENT/A DVANTAGE - PPO) Gilda Chan [id number] Gilda Chan 06/18/2022 1 [facility] (MEDICARE REPLACEMENT/A DVANTAGE - PPO) [id number] Gilda A Scheehser [id number] [place] A Scheehser 02/07/2023 1 [facility] (MEDICARE REPLACEMENT/A DVANTAGE - PPO) [id number] Gilda A Scheehser [id number] [place] A Scheehser 07/08/2023 1 [facility] (MEDICARE REPLACEMENT/A DVANTAGE - PPO) [id number] [place] A Scheehser [id number] Gilda A Scheehser 07/19/2023 1 [facility] (MEDICARE REPLACEMENT/A DVANTAGE - PPO) [id number] Gilda A Scheehser [id number] [place] A Scheehser Notes Date Note Type Note [...] and PFTs noted Evgeny Rodriguez MD [address], [email or web address], [address], [facility], [facility] 01/26/2022 11:51:56 06/18/2022 text/html Patient was [...] normal levels now Evgeny Rodriguez MD [address], [place], [address], [facility], [facility] 06/18/2022 14:53:33 02/07/2023 text/html Patient having increasing cough and shortness of breath PFTs noted CT of the chest noted Patient complains of sinus pressure, dull headache, nasal stuffiness and postnasal drip. There is cough especially at night. Mucus is usually clear. Evgeny Rodriguez MD [address], [place], [address], [facility], [facility] 02/07/2023 13:08:19 07/08/2023 text/html Patient hospital ized for multifocal pneumonia and exacerbation of COPD He recovered well with antibiotic therapy and aggressive corticosteroids and being tapered off steroids slowly There is considerable pedal edema Evgeny Rodriguez MD [address], [place], [address], [facility] Physician [facility], [facility] 07/08/2023 13:10:08 07/19/2023 text/html Patient experien devante expiratory wheezing on and off with cough and shortness of breath primarily from changes in environmental conditions Blood Pressure seems to be under reasonable control most of the time on current regimen of medications.BP log from home reviewed with patient Evgeny Rodriguez MD [address], [place], [address], [facility] Physician [facility], [facility] 07/19/2023 12:58:33 OBGyn Episode No OBEpisode recorded.
--- OUTSIDE RECORDS SUMMARY | 2024-06-19 16:38 | XMS_ITS | Continuity of Care Document ---
Author Organization [facility] A Address [address] [place] [address] Phone Care Team Providers Care Vice President Safety Name Role Phone Mesfin Stuart NP Unavailable [...] Copied on Encounter Demarcus Nichols MD PA, [address] [place] [address], [id number], [place] tel:[phone] Main Office Rheumatoid Arthritis (chief complaint) Rheumatoid arthritis with rheumatoid factor of multiple sites without organ or systems involvementChroni c fatigue, unspecifiedLong term (current) use of antimetabolite agentLong term use of immunosuppressant Immunodeficiency due to drugsEncounter for therapeutic drug level monitoringVenous insufficiency of lower extemity Sep-2 4 Sade Toure. [address] [place] [address], [id number] , [place]. tel: [phone] Demarcus WHEELER, [address] [place] [address], [id number], tel:[phone] [facility] Immunodeficiency due to drugsLong term (current) use of antimetabolite agentRheumatoid arthritis with rheumatoid factor of multiple sites without organ or systems involvementEncoun ter for therapeutic drug level monitoring 4 Sade Toure. [facility] [address], [id number] , . tel: [phone] Demarcus WHEELER, [address] [place] [address], [id number], tel:[phone] [facility] Inflammatory polyarthropathyRh eumatoid arthritis with rheumatoid factor of multiple sites without organ or systems involvementLong term (current) use of antimetabolite agentImmunodefici ency due to drugs 3 Sade Toure. [address] [place] [address], [id number] , . tel: [phone] Demarcus WHEELER, [address] [place] [address], [id number], tel:[phone] [facility] No Information 3 Sade Toure. [address] [place] [address], [id number] , . tel: [phone] Demarcus WHEELER, [address] [place] [address], [id number], tel:[phone] [facility] Chronic fatigue, unspecifiedEncoun ter for therapeutic drug level monitoringImmunod eficiency due to drugsRheumatoid arthritis with rheumatoid factor of multiple sites without organ or systems involvement 3 Sade Toure. [facility] [address], [id number] , . tel: [phone] Demarcus WHEELER, [address] [place] [address], [id number], tel:[phone] [facility] Other fci (current) drug therapyChronic fatigue, unspecifiedChroni c obstructive pulmonary disease, unspecifiedRheuma toid arthritis with rheumatoid factor of multiple sites without organ or systems involvement 3 Sade Toure. [address], [id number] , . tel: [phone] Demarcus WHEELER, [address] [place] [address], [id number], [place] tel:[phone] [facility] Other fci (current) drug therapyLong term (current) use of systemic steroidsChronic fatigue, unspecifiedRheuma toid arthritis with rheumatoid factor of multiple sites without organ or systems involvement 3 Sade Toure. [address], [id number] , [place]. tel: [phone] Demarcus WHEELER, [address] [place] [address], [id number], tel:[phone] [facility] No Information 3 Sade Toure. [address], [id number] , [place]. tel: [phone] Demarcus WHEELER, [address] [place] [address], [id number], tel:[phone] [facility] No Information 2 Sade Toure. [address], [id number] , [place]. tel: [phone] Demarcus WHEELER, [address], [id number], [place] tel:[phone] Main Office Pain in unspecified jointRheumatoid arthritis with rheumatoid factor of multiple sites without organ or systems involvementInflam matory polyarthropathyOt her fci (current) drug therapy 2 Sade Toure. [address], [id number] , [place]. tel: [phone] Demarcus WHEELER, [address], [id number], tel:[phone] Main Office Pain in unspecified jointPain in right kneeInflammatory polyarthropathyLo ng term (current) use of systemic steroids 2 Sade Toure. [address], [id number] , . tel: [phone] Demarcus WHEELER, [address], [id number], tel:[phone] [facility] No Information 9 Sade Toure. [address], [id number] , . tel: [phone] Family History Family Member Type Diagnosis Age At Onset Mother Problem (finding) Rheumatological or Auto immune disease Father Problem (finding) Rheumatological or Auto immune disease Payers Payer name Insurance type Covered constitution party ID Authoriza tion(s) No Information Social History [...] involvement assessment Chronic fatigue, unspecified Nov assessment FDC (current) use of antim etabolite agent assessment FDC use of immunosuppressa nt assessment Immunodeficiency due to drugs Se assessment Encounter for therapeutic drug l evel monitoring assessment Venous insufficiency of lower ex temity Mental Status Date Cognitive Assessment Orientation - [place] ed to time, place, person, situation. Patient Care Teams Name Effective Dates (start - stop) Status Members No Information
--- OUTSIDE RECORDS SUMMARY | 2024-06-19 16:38 | XMS_ITS ---
Author Name [facility] Organization Unknown History of Medication Use Medication Directions Dispensed Refills Start Date End Date Stat us predniSONE (DELTASONE) 50 MG tablet TAKE 1 TABLET BY MOUTH EVERY DAY FOR 2 DAYS (05/18 & 05/19) THEN RESUME HOME DOSE 5 MG EVERY DAY. 05/17/2024 active albuterol (PROVENTIL) (0.083%) 2.5 mg/3 mL nebulizer solution USE 1 AMPLE IN NEBULIZER EVERY 6 HOURS NEEDED FOR WHEEZING/SHORTNESS OF BREATH 02/21/2024 active guaiFENesin-codeine (ROBITUSSIN AC) liquid TAKE 10 ML BY MOUTH EVERY 4 HOURS NEEDED FOR COUGH 04/21/2024 active Eliquis 2.5 MG tablet 1 tablet by Mouth/Oral Cavity route every 12 hours. 05/16/2024 active cephalexin (KEFTAB) 500 MG tablet 05/20/2024 active Trelegy Ellipta 200-62.5-25 MCG/ACT inhaler 03/21/2024 active Eliquis 5 MG tablet TAKE 2 TABLETS BY MOUTH TWO TIMES A DAY FOR 7 DAYS (05/17 THROUGH 05/24) FOLLOWED BY 1 TABLET BY MOUTH TWO TIMES A DAY FOR 23 DAYS. 05/17/2024 active doxycycline (VIBRA-TABS) 100 MG tablet 1 tablet by Mouth/Oral Cavity route every 12 hours. 04/21/2024 active Problems Problem Status Onset Date Problem Type Date of Resoluti on Source Pelvic mass active [facility] Encounter Type Encounter Reason Primary Diagnosis Location Date [facility] 05/22/2024 Care Team Organization Name Specialty Phone Email Start Date End Da te [facility] [facility] 05/31/2024 [facility] 05/22/2024
--- OUTSIDE RECORDS SUMMARY | 2024-06-19 16:38 | XMS_ITS | Encounter Summary ---
Author Organization [facility] Address [address] [place] [address] Care Team Providers Care Hydraulic Strainer Operator Name Role Phone Unavailable Primary Care Provider Unavailabl e Reason for Referral * Specialty Diagnoses / Procedures Referred By Contac t Referred To Contact Gynecologic Oncology [facility] [address] [place] [address] [place] [address] Referral ID Status Reason Start Date Expiration Date Visits Re quested Visits Authorized Comments This order was created through External Result Entry Encounter Details Date Type Department Care Team (Late st Contact Info) Description 06/08/2024 Orders Only [facility] [facility] [place] [address] [place] [phone] Provider, Davion, [address] [place] [address] Social History Tobacco Use Types Packs/Day Years Used Date Smoking Tobacco: Never Assessed Sex and Gender Information Value Date Recorded Sex Assigned at Female 05/22/2024 9:09 AM EDT Gender Identity Female 05/22/2024 9:09 AM EDT Sexual Orientation Not on file documented as of this encounter Plan of Treatment Not on file documented as of this encounter Procedures Procedure Name Priority Date/Time Associated Diagnosis Comments AMB REFERRAL TO GYNECOLOGIC ONCOLOGY Routine 06/08/2024 2:57 PM EDT documented in this encounter Results * Amb Referral to Gynecologic Oncology (06/08/2024 2:57 PM EDT) External Provider OUTPATIENT REFERRAL ORDERABLES documented in this encounter Visit Diagnoses Not on filedocumented in this encounter
== END 2024-06-19 14:50 | disposition home or self-care (01) ==
LOC: HO.RHES 13:40
PROVIDERS: PCP Internal Medicine; Visit Provider Internal Medicine Rheumatology
DX: M05.79 Rheumatoid arthritis with rheumatoid factor of multiple sites without organ or systems involvement (principal); Z79.899 Other long term (current) drug therapy
CPT/HCPCS: 99214; G2211

== ENCOUNTER → 2024-07-12 11:02 | Outpatient (BNVA) | payer OTHER, SELFPAY | PROVIDERS: PCP Internal Medicine; Visit Provider Internal Medicine Rheumatology ==

== ENCOUNTER 2024-07-24 14:57 | Outpatient (AMB) | payer OTHER, SELFPAY ==
--- NOTE | 2024-07-24 15:01 | MHC.OFFVIS ---
Vital Signs 07/24/24 15:02 Height 4 ft 11.5 in Weight 147 lb BMI 29.2 BP 146/84 H Blood Pressure Location Rt brachial Position Sitting Pulse 76 Pulse Source Pulse Oximeter Pulse Oximetry (%) 95 Oxygen Delivery Method Room Air Intake Visit Reasons: Discuss Prudence / Anuj CERVANTES Intake Note: Patient presents today for RA follow up. Accompanied by: Self / Same As Patient Allergies latex Allergy (Verified 07/24/24 15:06) Rash Sulfa (Sulfonamide Antibiotics) Allergy (Verified 07/24/24 15:06) Rash HPI HPI Discuss Prudence / Anuj MD: Details: She hears voices at prednisone 7.5 mg daily but it is tolerable. At higher dose the intensity of the voices is louder. She has difficulty putting on her compression stockings because her hands are weak. She continues to have swelling in her hands. Prednisone dose was increased from 5 mg daily to 7.5 mg daily. She continues to have stiffness. [facility] Medical History Endometriosis Vitamin B 12 deficiency Restless leg syndrome Multiple pulmonary nodules Lymphopenia Hypertension Hyperlipidemia Surgical History History of bunionectomy Family History Mother Heart disease Other Pancreatic cancer Physical Exam Vital Signs: Last Vital Signs Pulse 76 07/24/24 15:02 BP 146/84 H 07/24/24 15:02 Pulse Ox 95 07/24/24 15:02 Oxygen Delivery Method Room Air 07/24/24 15:02 BMI result Body Mass Index 29.2 Const Other: General: Comfortable CVS: RRR Respiratory: clear to auscultation bilaterally. Good respiratory effort Skin: No lesions seen MSK: Synovitis right 4th and 5th MCP without tenderness present. Chronic synovial thickening left 2nd and 3rd MCP. Synovitis of right 3rd PIP. [place]berden nodes present. Normal range of motion of upper extremities. Good external rotation of bilateral hips. Bilateral lower extremity edema left worse than right. Assessment & Plan Assessment & Plan (1) Rheumatoid arthritis: Comment: Inflammatory arthritis is not controlled on prednisone 7.5 mg daily and hydroxychloroquine 200 mg daily. She has a new provoked DVT of her left lower extremity on Eliquis since end of April/early May. TNF inhibitor Humira was approved. We discussed patient's concerns about Humira and side effects. Answered patient's and daughter's questions to their satisfaction. 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 History of CKD. Triggered by COVID-19 infection 09/2021. She was previously treated with double therapy HCQ and MTX. 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 Hydroxychloroquine dose was reduced from 300 mg daily to 200 mg daily due to worsening kidney function. She previously required bilateral knee cortisone injections and left wrist cortisone injection (12/22/2021). Prednisone 5 mg daily started ATC 12/2023 Dr. Arita. 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 Reviewed this visit. Humira nurse teaching visit today. She will have labs for drug monitoring 1 month from today. Continue hydroxychloroquine 200 mg daily. 08/2023 no evidence of Plaquenil associated maculopathy on clinical exam. Prior testing October 2022 on visual field test red shows paracentral scotomas superior, visual field white August 2023 was stable to previous. On OCT right eye there is borderline thinning of parafocal non changing since 10/2022. Left eye OCT is unchanged. She has an appointment for follow-up hydroxychloroquine surveillance August 2024. She will call office if symptoms progress. I will consider nurse visit for Depo-Medrol Return to clinic in 3 months (2) Other truck terminal manager (current) drug therapy: Code(s): Z79.899 - Other truck terminal manager (current) drug therapy Category: Medical Plan: See above Orders: Orders Alanine Aminotransferase 1 Month Z79.60 - manager long term care (current) use of unspecified immunomodulators and immunosuppressants Complete Blood Count Auto Diff 1 Month Z79.60 - nursing home (current) use of unspecified immunomodulators and immunosuppressants Creatinine 1 Month Z79.60 - nursing home (current) use of unspecified immunomodulators and immunosuppressants Aspartate Amino Transferase 1 Month Z79.60 - manager long term care (current) use of unspecified immunomodulators and immunosuppressants Coding Level of Care Code Est Pt Level 4 (58035) Complex EM visit Add On G2211 Diagnoses Rheumatoid arthritis involving multiple sites with positive rheumatoid factor M05.79 Rheumatoid arthritis location: multiple sites Rheumatoid factor presence: with rheumatoid factor Other skilled nursing (current) drug therapy Z79.899 Time Spent (min) 32
[2024-07-24 15:02] VITALS: BP 146/84; PULSE 76; O2SAT 95; BMI 29.2
--- OUTSIDE RECORDS SUMMARY | 2024-07-24 15:58 | XMS_ITS ---
Author Organization [facility] Address [address] [place] [address] Care Team Providers Care [employer] Bo[employer] Router Name Role Phone Hernandez CERVANTES, [place] Primary Care Provider [phone] Allergies Allergen (clinical drug ingredient) Drug/Non Drug [...] 01:46:24 PM Interpretation: Performing Lab:[facility], [address] [place] [id number], Phone - [phone], Director - Shalom Notes/Report: WBC 6.9 3.4-10.8 [...] Reviewed date:04/28/2024 01:46:25 PM Interpretation: Performing Lab:[facility], [address] [place], [place] [id number], Phone - [phone], Director - Shalom Notes/Report: Cholesterol, Total 125 100-199 mg/dL Triglycerides 92 0-149 mg/dL HDL Cholesterol 52 >39 mg/dL VLDL Cholesterol Ayo 17 5-40 mg/dL LDL Chol Calc ([facility]) 56 0-99 mg/dL T. Chol/HDL Ratio 2.4 0.0-4.4 ratio T. Chol/HDL Ratio Men Women 1/2 Avg.Risk 3.4 3.3 Avg.Risk 5.0 4.4 2X Avg.Risk 9.6 7.1 3X Avg.Risk 23.4 11.0 Comprehensive Metabolic Pane l 14 (CMP) Reviewed date:04/28/2024 01:46:25 PM Interpretation: Performing Lab:[facility], [address] [place], [place] [id number], Phone - [phone], Director - Shalom Notes/Report: Glucose 67 70-99 [...] daily Active Vitamin D (Ergocalciferol) 1.25 MG (91548 UT) 1 capsule Orally weekly for 90 [...] Encounter Location Date Provider Diagnosis [facility] [address] [place], [place] [id number] 04/05/2024 Paulo Ng Chronic obstructive pulmonary disease, unspecified J44.9 ; Essential (primary) hypertension I10 ; Rheumatoid arthritis, unspecified M06.9 ; 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 02/27 weaning down on predisone right now doing 04/05/2024 Essential (primary) hypertension (ICD-10 - I10) [id number]- Continue medications and home monitoring as directed. [...] factor present (ICD-10 - M06.9) 04/05/2024 Other keno terminal operator (current) drug therapy (ICD-10 - Z79.899) Plan Of Treatment Treatment Notes Assessment Notes Chronic obstructive pulmonar y disease, unspecified Continue to follow with Director Investor Relations. 02/27 weaning down on predisone right now [...] * Gilda CHAN ADOB:1935 (88 yo F)Acc No.[id number]:04/05/2024 Patient:Gilda PERAZA Provider:?Paulo Ng MD :1935???Age:88 Y???Sex:Female D ate:04/05/2024 Address:[address] [id number] Subjective: * Chief Complaints: * ???4 wk f/uThis is a [facility]/Telemedicine visit conducted using synchronous audio . The [...] tablets po daily , Notes to Pharmacist: / tab qdOlmesartan Medoxomil 20 MG Tablet 0.5 tablet Orally once daily , Notes to Pharmacist: / tabletpredniSONE 5 MG Tablet 1 tablet Orally [...] 630mg once dailyVitamin D (Ergocalciferol) 1.25 MG (05291 UT) Capsule 1 capsule Orally weekly Taking [...] tablets po daily , Notes to Pharmacist: /2 tab qdTaking Olmesartan Medoxomil 20 MG Tablet 0.5 tablet Orally once daily , Notes to Pharmacist: /2 tabletTaking predniSONE 5 MG Tablet 1 tablet Orally Once a day Taking rOPINIRole HCl 0.25 MG Tablet 1 tablet Orally twice a day as directed, Notes to Pharmacist: bid poTaking Treleeugenie Ellipta 200-62.5-25 MCG/ACT Aerosol Powder Breath Activated 1 puff Inhalation Once a day Taking Tumeric Curcumin 500mg Tablet 1 tablet orally once a day Taking Tylenol PRN Taking Vasculera - Tablet as directed Orally 630mg once dailyTaking Vitamin D (Ergocalciferol) 1.25 MG (65033 UT) Capsule 1 capsule Orally weekly Not-TakingpredniSONE [...] pulmo nary disease, unspecified - J44.9 (Primary)???Notes :[facility]-[id number]???2.?Essential (primary) hypertension - I10???Notes :[id number]???3.?Rheumatoid arthritis, unspecified - M06.9???4.?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 Plan: * [...] classified elsewhere? Notes: Due to COPD.?? 5.?Other keno terminal operator (current) drug therapy?LAB: Complete Blood Count with Differential/Platelet (CBC) ?LAB: Lipid Panel With Total Cholesterol/HDL Ratio ?LAB: Comprehensive Metabolic Panel 14 (CMP) * Procedure Codes:?1159F Medic ation list [id number] Medication Review * Preventive Medicine:? ??Handouts :?Patient Handouts:?THE FOLLOWING HANDOUTS WERE PROVIDED:?Visit summary ?THE ABOVE HANDOUTS WERE PROVIDED BY:?Farzad Gaona 04/05/2024 08:29:28 AM EST >.?HANDOUTS REVIEWED WITH:?patient.?METHOD USED TO DEMONSTRATE UNDERSTANDING: ?verbalized understanding.?UNDERSTANDING OF HANDOUT WAS DEMONSTRATED?Farzad Gaona 04/05/2024 08:29:33 AM EST >.? * Follow Up:?prn * * [employer]IBUT[employer] SPECIALIST Sign off status: Completed true * Provider:?Paulo Ng MD Date:?04/05 Generated for Phnai elkins/Marcus/Dominique on:?07/24/2024 02:58 PM CDT History and Physical Notes * Examination Category Sub-Category Detail Notes General Examination Psych: does not dawson ear depressed, normal affect.
--- OUTSIDE RECORDS SUMMARY | 2024-07-24 15:59 | XMS_ITS | Data Portability ---
Author Organization [place] [facility], OFFICE Address [address] [place] [address] Care Team Providers Care Outsole Molder Name Role Phone RAJIV RED Primary Care Provider [phone] Assessment No assessment recorded. Plan of Treatment Reminders Order Date Submit Date Provider Last Modified By Organization Details Last Modified Time Details Appointments None recorded . Lab hemoglob in A1C, fingerst ick 2022 023 JONNATHAN In-House Results, For Internal Use Only, Do Not Delete/merge, [id number] 3 12:20:33 CMP, serum or plasma 2021 022 [email or web address] [facility], [address] [facility], [address], [place], [address], 2 15:02:05 CBC w/ auto diff 2021 022 [facility] [employer] [facility], [address] [facility], [address], [place], [address], 2 15:02:05 lipid panel, serum 2021 022 [facility] [employer] [facility], [address] [facility], [address], [place], [address], 2 15:02:05 Referral pulmonol ogist referral 2022 023 debra Not available 13:09:23 Procedures None recorded . Surgeries None recorded . Imaging XR, knee, 3 view 2021 022 [email or web address] [facility], [address], [place], [address], 3 07:19:05 XR, knee, 3 view 2021 022 [email or web address] [facility], [address], [place], [address], 3 07:19:05 Medication Orders cyanocob alamin (vit B-12) 1,000 mcg/mL injectio n solution 2022 023 Not available 3 12:46:56 famotidi ne 20 mg tablet 2022 023 [facility], [address] [place], [address], 3 14:02:57 cyanocob alamin (vit B-12) 1,000 mcg/mL injectio n solution 2022 023 [email or web address] Not available 3 16:51:19 cyanocob alamin (vit B-12) 1,000 mcg/mL injectio n solution 2022 023 Not available 15:02:14 Patient TargetsNo targets recorded. Patient Instructions Encounter Date Encounter Id Patient Instructions Last Modified By Organization Details Last Modified Time 03/02/2022 [id number] 30 min total veronica e of encounter including face to face and non face to face time spent: Preparing to see patient Obtaining and reviewing separately obtained history Performing medically appropriate examination or evaluation Counseling and educating patient/family/car egiver Ordering medications, tests, or procedures Referring and communication with other health long term care phlebotomist Documenting clinical information in the medical record Independently interpreting and communicating results to patient/caregiver Care coordination Discussed treatment plan with patient. The patient verbalized understanding and agrees with plan and follow up. There are no other questions and concerns at this time. f/u scheduled vascular surgeon consult [id number] vascular surgery varicose veins conservative treatment [email or web address] Not available 03/02/2022 08:25:02 05/27/2022 [id number] 30 min total veronica e of encounter including face to face and non face to face time spent: Preparing to see patient Obtaining and reviewing separately obtained history Performing medically appropriate examination or evaluation Counseling and educating patient/family/car egiver Ordering medications, tests, or procedures Referring and communication with other health long term care phlebotomist Documenting clinical information in the medical record Independently interpreting and communicating results to patient/caregiver Care coordination Discussed treatment plan with patient. The patient verbalized understanding and agrees with plan and follow up. There are no other questions and concerns at this time. f/u scheduled Discussed all CBC w/ auto diff [id number] 6.2 11.3 WBC 6.2 RBC 4.03 hemoglobin 11.3 hematocrit 33.8 below low normal MCV 84 MCH 28.0 MCHC 33.4 RDW 13.5 platelets 321 neutrophils 48 lymphs 39 monocytes 11 eos 1 basos 1 immature cells sales team leader neutrophils (absolute) 3.0 lymphs (absolute) 2.4 monocytes(absolute ) 0.7 eos (absolute) 0.1 baso (absolute) 0.0 immature granulocytes 0 immature grans (abs) 0.0 NRBC sales team leader hematology comments: sales team leader lipid panel, serum [id number] 139 49 68 127 cholesterol, total 139 triglycerides 127 HDL cholesterol 49 VLDL cholesterol cristina 22 LDL chol calc (nih) 68 comment: sales team leader CMP, serum or plasma [phone] 1.13 glucose 71 BUN 23 creatinine 1.13 above high normal eGFR 47 below low normal BUN/creatinine ratio 20 sodium 139 potassium 4.6 chloride 102 carbon dioxide, total 26 calcium 9.3 protein, total 6.3 albumin 3.7 globulin, total 2.6 A/G ratio 1.4 bilirubin, total 0.2 alkaline phosphatase 47 AST (SGOT) 18 ALT (SGPT) 23 CMP, serum or plasma [id number] lisandro ann CMP14 default comment lipid panel, serum [phone] lisandro ann LP default comment XR, knee, 3 [id number] IMPRESSION: 1.No acute osseous abnormality. 2.Moderate medial patellofemoral compartment osteoarthritis If there are persistent symptoms, consider additional imaging such as knee MRI to assess for internal derangement. 03/05/2022 Re-post to PACS Electronically Signed By: Wilfrid Robertson MD XR, knee, 3 [id number] XR, knee, 3 [id number] No acute osseous abnormality. Moderate medial patellofemoral compartment osteoarthritis. XR, knee, 3 view Not available 05/27/2022 15:00:17 06/10/2022 [id number] mini-cog assessment* [email or web address] Not available 06/25/2022 15:25:02 low calorie diet [...] procedures Referring and communication with other health long term care phlebotomist Documenting clinical information in the medical record Independently interpreting and communicating results to patient/caregiver Care coordination Discussed treatment plan with patient. The patient verbalized understanding and agrees with plan and follow up. There are no other questions and concerns at this time. f/u scheduled [address] [facility] Emergency Dept [place], [place] [id number] Rosalva Aguila D.O. 99[address] SM[facility]ina [facility], [address] [place] [address] [id number] COPD with acute exacerbation (HCC) (Primary Dx); Acute hypoxemic respiratory failure (HCC); Atypical pneumonia; Essential hypertension; Community acquired bacterial pneumonia; CHRISTIAN (acute kidney injury) (HCC); Pneumonia of both lungs due to infectious organism, unspecified part of lung Discussed all CBC w/ auto diff [id number] 6.2 11.3 WBC 6.2 RBC 4.03 hemoglobin 11.3 hematocrit 33.8 below low normal MCV 84 MCH 28.0 MCHC 33.4 RDW 13.5 platelets 321 neutrophils 48 lymphs 39 monocytes 11 eos 1 basos 1 immature cells sales team leader neutrophils (absolute) 3.0 lymphs (absolute) 2.4 monocytes(absolute ) 0.7 eos (absolute) 0.1 baso (absolute) 0.0 immature granulocytes 0 immature grans (abs) 0.0 NRBC sales team leader hematology comments: sales team leader lipid panel, serum [id number] 139 49 68 127 cholesterol, total 139 triglycerides 127 HDL cholesterol 49 VLDL cholesterol cristina 22 LDL chol calc (nih) 68 comment: sales team leader CMP, serum or plasma [id number] 71 1.13 glucose 71 BUN 23 creatinine 1.13 above high normal eGFR 47 below low normal BUN/creatinine ratio 20 sodium 139 potassium 4.6 chloride 102 carbon dioxide, total 26 calcium 9.3 protein, total 6.3 albumin 3.7 globulin, total 2.6 A/G ratio 1.4 bilirubin, total 0.2 alkaline phosphatase 47 AST (SGOT) 18 ALT (SGPT) 23 CMP, serum or plasma [id number] ambig abbrev CMP14 default comment lipid panel, serum [id number] ambig abbrev LP default comment XR, knee, 3 [id number] IMPRESSION: 1.No acute osseous abnormality. 2.Moderate medial patellofemoral compartment osteoarthritis If there are persistent symptoms, consider additional imaging such as knee MRI to assess for internal derangement. 03/05/2022 Re-post to PACS Electronically Signed By: Wilfrid Robertson MD XR, knee, 3 [id number] XR, knee, 3 [id number] No acute osseous abnormality. Moderate medial patellofemoral compartment osteoarthritis. XR, knee, 3 view Not available 06/10/2022 13:53:59 06/25/2022 [id number] 30 min total veronica e of encounter including face to face and non face to face time spent: Preparing to see patient Obtaining and reviewing separately obtained history Performing medically appropriate examination or evaluation Counseling and educating patient/family/car egiver Ordering medications, tests, or procedures Referring and communication with other health long term care phlebotomist Documenting clinical information in the medical record Independently interpreting and communicating results to patient/caregiver Care coordination Discussed treatment plan with patient. The patient verbalized understanding and agrees with plan and follow up. There are no other questions and concerns at this time. f/u scheduled [address] [facility] [place] [address] Rosalva Aguila D.O. 24[address] [facility] Valencia, [address] [place] [id number] COPD with acute exacerbation (HCC) (Primary Dx); Acute hypoxemic respiratory failure (HCC); Atypical pneumonia; Essential hypertension; Community acquired bacterial pneumonia; CHRISTIAN (acute kidney injury) (HCC); Pneumonia of both lungs due to infectious organism, unspecified part of lung Discussed all CBC w/ auto diff [id number] 6.2 11.3 WBC 6.2 RBC 4.03 hemoglobin 11.3 hematocrit 33.8 below low normal MCV 84 MCH 28.0 MCHC 33.4 RDW 13.5 platelets 321 neutrophils 48 lymphs 39 monocytes 11 eos 1 basos 1 immature cells sales team leader neutrophils (absolute) 3.0 lymphs (absolute) 2.4 monocytes(absolute ) 0.7 eos (absolute) 0.1 baso (absolute) 0.0 immature granulocytes 0 immature grans (abs) 0.0 NRBC sales team leader hematology comments: sales team leader lipid panel, serum [id number] 139 49 68 127 cholesterol, total 139 triglycerides 127 HDL cholesterol 49 VLDL cholesterol cristina 22 LDL chol calc (nih) 68 comment: sales team leader CMP, serum or plasma [id number] 71 1.13 glucose 71 BUN 23 creatinine 1.13 above high normal eGFR 47 below low normal BUN/creatinine ratio 20 sodium 139 potassium 4.6 chloride 102 carbon dioxide, total 26 calcium 9.3 protein, total 6.3 albumin 3.7 globulin, total 2.6 A/G ratio 1.4 bilirubin, total 0.2 alkaline phosphatase 47 AST (SGOT) 18 ALT (SGPT) 23 CMP, serum or plasma [id number] lisandro ann CMP14 default comment lipid panel, serum [id number] ambbrandyn abbreluigi LP default comment XR, knee, 3 [id number] IMPRESSION: 1.No acute osseous abnormality. 2.Moderate medial patellofemoral compartment osteoarthritis If there are persistent symptoms, consider additional imaging such as knee MRI to assess for internal derangement. 03/05/2022 Re-post to PACS Electronically Signed By: Wilfrid Robertson MD XR, knee, 3 [id number] XR, knee, 3 [id number] No acute osseous abnormality. Moderate medial patellofemoral compartment osteoarthritis. 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) [address] [place], [address], 05/21/2022 08:12:29 05/21/19 23 05/21/2022 CBC/D IFF AMBIG UOUS DEFAU LT RBC 4.03 x10e6 /uL 3.77-5 .28 Not Available [facility] ([facility]) [address] [place], [address], 05/21/2022 08:12:29 05/21/19 23 05/21/2022 CBC/D IFF AMBIG UOUS DEFAU LT hemoglobin 11.3 g/dL 11.1-1 5.9 Not Available [facility] ([facility]) [address] [place], [address], 05/21/2022 08:12:29 05/21/19 23 05/21/2022 CBC/D IFF AMBIG UOUS DEFAU LT hematocrit 33.8 % 34.0-4 6.6 below low normal Not Available [facility] ([facility]) [address] [place], [address], 05/21/2022 08:12:29 05/21/19 23 05/21/2022 CBC/D IFF AMBIG UOUS DEFAU LT MCV 84 fL 79-97 Not Available [facility] ([facility]) [address] [place], [address], 05/21/2022 08:12:29 05/21/19 23 05/21/2022 CBC/D IFF AMBIG UOUS DEFAU LT MCH 28.0 pg 26.6-3 3.0 Not Available [facility] ([facility]) [address] [facility], [place], [address], 05/21/2022 08:12:29 05/21/19 23 05/21/2022 CBC/D IFF AMBIG UOUS DEFAU LT MCHC 33.4 g/dL 31.5-3 5.7 Not Available [facility] ([facility]) [address] [facility], [place], [address], 05/21/2022 08:12:29 05/21/19 23 05/21/2022 CBC/D IFF AMBIG UOUS DEFAU LT RDW 13.5 % 11.7-1 5.4 Not Available [facility] ([facility]) [address] [facility], [place], [address], 05/21/2022 08:12:29 05/21/19 23 05/21/2022 CBC/D IFF AMBIG UOUS DEFAU LT platelets 321 x10e3 /uL 150-45 0 Not Available [facility] ([facility]) [address] [facility], [place], [address], 05/21/2022 08:12:29 05/21/19 23 05/21/2022 CBC/D IFF AMBIG UOUS DEFAU LT neutrophils 48 % not estab. Not Available [facility] ([facility]) [address] [facility], [place], [address], 05/21/2022 08:12:29 05/21/19 23 05/21/2022 CBC/D IFF AMBIG UOUS DEFAU LT lymphs 39 % not estab. Not Available [facility] ([facility]) [address] [facility], [place], [address], 05/21/2022 08:12:29 05/21/19 23 05/21/2022 CBC/D IFF AMBIG UOUS DEFAU LT monocytes 11 % not estab. Not Available [facility] ([facility]) [address] [facility], [place], [address], 05/21/2022 08:12:29 05/21/19 23 05/21/2022 CBC/D IFF AMBIG UOUS DEFAU LT eos 1 % not estab. Not Available [facility] ([facility]) [address] [facility], [place], [address], 05/21/2022 08:12:29 05/21/19 23 05/21/2022 CBC/D IFF AMBIG UOUS DEFAU LT basos 1 % not estab. Not Available [facility] ([facility]) [address] [facility], [place], [address], 05/21/2022 08:12:29 05/21/19 23 05/21/2022 CBC/D IFF AMBIG UOUS DEFAU LT immature cells ACADEMIC RECORDS SPECIALIST Not Available [facility] ([facility]) [address] [place], [address], 05/21/2022 08:12:29 05/21/19 23 05/21/2022 CBC/D IFF AMBIG UOUS DEFAU LT neutrophils (absolute) 3.0 x10e3 /uL 1.4-7. 0 Not Available [facility] ([facility]) [address] [place], [address], 05/21/2022 08:12:29 05/21/19 23 05/21/2022 CBC/D IFF AMBIG UOUS DEFAU LT lymphs (absolute) 2.4 x10e3 /uL 0.7-3. 1 Not Available [facility] ([facility]) [address] [place], [address], 05/21/2022 08:12:29 05/21/19 23 05/21/2022 CBC/D IFF AMBIG UOUS DEFAU LT monocytes(ab solute) 0.7 x10e3 /uL 0.1-0. 9 Not Available [facility] ([facility]) [address] [facility], [place], [address], 05/21/2022 08:12:29 05/21/19 23 05/21/2022 CBC/D IFF AMBIG UOUS DEFAU LT eos (absolute) 0.1 x10e3 /uL 0.0-0. 4 Not Available [facility] ([facility]) [address] [facility], [place], [address], 05/21/2022 08:12:29 05/21/1905/21/2022 CBC/D IFF AMBIG UOUS DEFAU LT baso (absolute) 0.0 x10e3 /uL 0.0-0. 2 Not Available [facility] ([facility]) [address] [facility], [place], [address], 05/21/2022 08:12:29 05/21/1905/21/2022 CBC/D IFF AMBIG UOUS DEFAU LT immature granulocytes 0 % not estab. Not Available [facility] ([facility]) [address] [facility], [place], [address], 05/21/2022 08:12:29 05/21/19 23 05/21/2022 CBC/D IFF AMBIG UOUS DEFAU LT immature grans (abs) 0.0 x10e3 /uL 0.0-0. 1 Not Available [facility] ([facility]) [address] [facility], [place], [address], 05/21/2022 08:12:29 05/21/1905/21/2022 CBC/D IFF AMBIG UOUS DEFAU LT NRBC ACADEMIC RECORDS SPECIALIST Not Available [facility] ([facility]) [address] [facility], [place], [address], 05/21/2022 08:12:29 05/21/19 23 05/21/2022 CBC/D IFF LISANDRO MENDEZ DEFAU LT hematology comments: ACADEMIC RECORDS SPECIALIST A hand- writt en panel /prof mckenzie [...] ciate your busin ess. Not Available [facility] ([facility]) [address] [place], [address], 05/21/2022 08:12:29 05/21/19 23 05/21/2022 COMP. METAB OLIC PANEL (14) glucose 71 mg/dL 70-99 Not Available [facility] ([facility]) [address] [place], [address], 05/21/2022 08:12:29 05/21/19 23 05/21/2022 COMP. METAB OLIC PANEL (14) BUN 23 mg/dL 8-27 Not Available [facility] ([facility]) [address] [place], [address], 05/21/2022 08:12:29 05/21/19 23 05/21/2022 COMP. METAB OLIC PANEL (14) creatinine 1.13 mg/dL 0.57-1 .00 above high normal Not Available [facility] ([facility]) [address] [place], [address], 05/21/2022 08:12:29 05/21/19 23 05/21/2022 COMP. METAB OLIC PANEL (14) eGFR 47 mL/mi n/1.7 3 >59 below low normal Not Available [facility] ([facility]) [address] [facility], [place], [address], 05/21/2022 08:12:29 05/21/1905/21/2022 COMP. METAB OLIC PANEL (14) BUN/creatini ne ratio 02 03- Not Available [facility] ([facility]) [address] [facility], [place], [address], 05/21/2022 08:12:29 05/21/19 23 05/21/2022 COMP. METAB OLIC PANEL (14) sodium 139 mmol/ L 134-14 4 Not Available [facility] ([facility]) [address] [facility] [place], [address], 05/21/2022 08:12:29 05/21/19 23 05/21/2022 COMP. METAB OLIC PANEL (14) potassium 4.6 mmol/ L 3.5-5. 2 Not Available [facility] ([facility]) [address] [facility], [place], [address], 05/21/2022 08:12:29 05/21/19 23 05/21/2022 COMP. METAB OLIC PANEL (14) chloride 102 mmol/ L 96-106 Not Available [facility] ([facility]) [address] [facility], [place], [address], 05/21/2022 08:12:29 05/21/19 23 05/21/2022 COMP. METAB OLIC PANEL (14) carbon dioxide, total 26 mmol/ L - Not Available [facility] ([facility]) [address] [facility], [place], [address], 05/21/2022 08:12:29 05/21/19 23 05/21/2022 COMP. METAB OLIC PANEL (14) calcium 9.3 mg/dL 8.7-10 .3 Not Available [facility] ([facility]) [address] [facility], [place], [address], 05/21/2022 08:12:29 05/21/19 23 05/21/2022 COMP. METAB OLIC PANEL (14) protein, total 6.3 g/dL 6.0-8. 5 Not Available [facility] ([facility]) [address] [facility] [place], [address], 05/21/2022 08:12:29 05/21/19 23 05/21/2022 COMP. METAB OLIC PANEL (14) albumin 3.7 g/dL 3.6-4. 6 Not Available [facility] ([facility]) [address] [place], [address], 05/21/2022 08:12:29 05/21/19 23 05/21/2022 COMP. METAB OLIC PANEL (14) globulin, total 2.6 g/dL 1.5-4. 5 Not Available [facility] ([facility]) [address] [place], [address], 05/21/2022 08:12:29 05/21/19 23 05/21/2022 COMP. METAB OLIC PANEL (14) A/G ratio 1.4 1.2-2. 2 Not Available [facility] ([facility]) [address] [place], [address], 05/21/2022 08:12:29 05/21/19 23 05/21/2022 COMP. METAB OLIC PANEL (14) bilirubin, total 0.2 mg/dL 0.0-1. 2 Not Available [facility] ([facility]) [address] [place], [address], 05/21/2022 08:12:29 05/21/19 23 05/21/2022 COMP. METAB OLIC PANEL (14) alkaline phosphatase 47 IU/L 44-121 Not Available [facility] ([facility]) [address] [facility], [place], [address], 05/21/2022 08:12:29 05/21/19 23 05/21/2022 COMP. METAB OLIC PANEL (14) AST (SGOT) 18 IU/L 0-40 Not Available [facility] ([facility]) [address] [place] [place], [address], 05/21/2022 08:12:29 05/21/19 23 05/21/2022 COMP. METAB OLIC PANEL (14) ALT (SGPT) 23 IU/L 0-32 Not Available [facility] ([facility]) [address] [facility], [address], 05/21/2022 08:12:29 05/21/19 23 05/21/2022 LIPID PANEL cholesterol, total 139 mg/dL 100-19 9 Not Available [facility] ([facility]) [address] [facility] [place], [address], 05/21/2022 08:12:30 05/21/19 23 05/21/2022 LIPID PANEL triglyceride s 127 mg/dL 0-149 Not Available [facility] ([facility]) [address] [facility] [place], [address], 05/21/2022 08:12:30 05/21/19 23 05/21/2022 LIPID PANEL HDL cholesterol 49 mg/dL >39 Not Available [facility] ([facility]) [address] [facility] [place], [address], 05/21/2022 08:12:30 05/21/19 23 05/21/2022 LIPID PANEL VLDL cholesterol crsitina 22 mg/dL 5-40 Not Available [facility] ([facility]) [address] [place], [address], 05/21/2022 08:12:30 05/21/19 23 05/21/2022 LIPID PANEL LDL chol calc (nih) 68 mg/dL 0-99 Not Available [facility] ([facility]) [address] [place], [address], 05/21/2022 08:12:30 05/21/19 23 05/21/2022 LIPID PANEL comment: ACADEMIC RECORDS SPECIALIST Not Available [facility] ([facility]) [address] [facility], [place], [address], 05/21/2022 08:12:30 05/21/19 23 05/20/2022 AMBIG ABBRE [...] ciate your elderin ess. Not Available [facility] ([facility]) [address] [facility], [place], [address], 05/21/2022 08:12:31 05/21/19 23 05/20/2022 AMBIG ABBRE [...] ciate your busin ess. Not Available [facility] ([facility]) [address] [facility], [place], [address], 05/21/2022 08:12:31 06/12/1906/11/2022 hemog lobin A1C, shawn mesatic k A1C 5.3 Not Available In-House Results For Internal Use Only, Do Not Delete/merge, [id number] 06/10/2022 08:34:00 04/05/19 23 03/04/2022 XR, knee, [...] calcif icatio n is identi fied. IMPRES CIRA: 1.No acute osseou s abnorm ality. 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 On 1 of the image there is subcho ndral lucenc y of the medial femora l condyl e, but this may be projec tional . If there are persis tent sympto ms, consid er additi onal imagin g such as knee MRI to assess for administrative intern al georgette duncan. 2021 Re-pos t to PACS Electr onical ly Signed By: Wilfrid Robertson MD [facility] [place] [address] [place] [address] Christina, [place], [address], 05/27/2022 14:51:08 04/05/19 23 03/04/2022 XR, knee, [...] calcif icatio n is identi fied. IMPRES CIRA: 1.No acute osseou s abnorm ality. 2.Mode rate medial patell ofemor al compar tment osteoa rthrit is If there are persis tent sympto ms, consid er additi onal imagin g such as knee MRI to assess for administrative intern al georgette hicksenio. 2021 Re-pos t to PACS Electr onical ly Signed By: Wilfrid Robertson MD [place] [id number] [facility] - [address], [place], [address], 05/27/2022 14:51:08 04/05/19 23 03/04/2022 XR, knee, 3 view No observ ation record ed. [place] [id number] [facility] - [address], [place], [address], 05/27/2022 14:51:08 04/05/19 23 03/04/2022 XR, knee, 3 view No observ ation record ed. [address] [facility] [address], [place], [address], 05/27/2022 14:51:08 Result Notes None recorded. Problems Name Problem SNOMED Code Status Onset Date Resolution Date Notes Provider Name and Address Organization Details Recorded Time Long-ter m drug therapy Completed 201604/09/2021 LIAM CARBALLO [address], [place], [address], [facility], [facility] 2 17:00:00 Body mass index 25-29 - overweig [id number] Completed 201607/07/2017 LIAM CARBALLO [address], [place], [address], [facility], [facility] 2 16:59:26 Elevated blood-pr essure reading without diagnosi s of hyperten cira 730241847 Completed 201602/26/2018 Removal Reason: has HTN JCARLOS quintanilla, [facility], [facility] 8 08:35:57 [facility]ia l hyperten cira 89867824 Active [address] 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 conserva tive tx d'vida DONNA CROSS [facility] 9 15:35:52 Cough 34861084 Completed 201705/19/2018 Removal Reason: resolved JCARLOS SOLIS [facility] 9 10:11:11 Pain of hip region 26000258 Completed 04/09/2021 LIAM CARBALLO [address], [place], [address], [facility] 2 17:00:11 Cough 37813842 Completed 03/26/2016 JCARLOS Meraz [facility], [facility] 9 10:11:11 Acute bronchit is 75546812 Completed 01/22/2016 RICHARD BONNY [facility], [facility] 6 15:09:56 Asthma 273879042 Active DONNABARBARA CROSS [facility] 9 15:35:52 Disorder of bone and articula r cartilag e 687145999 Completed 01/06/2020 Removal Reason: dup dx JCARLOS SOLIS [facility] 0 08:33:44 Orthosta tic hypotens ion 96806507 Completed 201701/06/2020 Removal Reason: max [facility] 0 08:34:53 Dizzines s 335784519 Completed 201701/06/2020 s/p stiolto? ? Removal Reason: resolved [facility] 0 08:33:24 Vitamin D deficien cy 62752356 Active 29.0 01/30/18 [facility] 9 15:35:52 Body mass index 30+ - obesity 263407371 Active 2017 DONNA CROSS [facility] 9 15:35:52 Vertigo 958591999 Active 2017 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 0 08:33:34 Serum creatini ne above referenc e range 258495916 Completed 201801/06/2020 New onset serum creatini ne raised. CMP 03/05/19 with creatini ne 1.09 and GFR 47. Avoid nephroto xins. Push fluids. Repeat CMP. Removal Reason: ckd 3 [facility] 0 08:34:46 Chronic kidney disease stage 3 992023946 Active 2019 [facility] 0 07:25:19 Cyst of kidney 584956545 Active 2019 Recent new onset. Patient had [...] comparis on. We will follow along. 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 [employer], [facility] 1 11:06:45 Computed tomograp hy result abnormal 247528624 Completed 202004/09/2021 LIAM CARBALLO [address] [place] [address] [address], [place], [address], [facility] [employer] [facility], [facility] 2 16:59:35 Body mass index 25-29 - overweig ht 150224676 Completed 202004/09/2021 LIAM CARBALLO [address] [place] [address] [address], [place], [address], [facility] [employer] [facility], [facility] 2 16:59:26 COVID-19 438168481 Active 2020 [facility]OS [facility] [employer] [facility], [facility] 1 11:04:15 Dyspnea 174925260 Active DONNA TAY 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 Just above goal of less than 100. Has no history of CVA, TIA, CAD, PVD or DM. Cannot calculat e CV risk per AHA calculat ion due to age. Hold off on statin. Work on diet adn exercise . JCARLOS WILL quintanilla, [facility] 9 09:43:53 Knee pain Completed 04/09/2021 LIAM CARBALLO [address], [place], [address], [facility] [employer] [facility] 2 17:00:08 Tobacco dependen ce syndrome 33446470 Completed 04/09/2021 LIAM CARABLLO [address], [place], [address], [facility] 2 17:00:18 Osteopen ia 115870899 Active [facility]NA [facility] 15:35:52 Lighthea dedness 349521852 Completed 03/26/2016 Asha Self [facility] 7 09:38:57 Pneumoni a 558457216 Completed 03/26/2016 Asha Self [facility] 7 09:38:45 Foot pain 67227225 Completed 04/09/2021 LIAM CARBALLO [address], [place], [address], [facility] [employer] [facility] 16:59:47 Multiple nodules of lung 983286406 Active 2015 pulanamika rodriguez -- stable CT chest via pulm consult 01/25/17 and consult 01/20/18 DONNA quintanilla, [facility] [employer] [facility] 15:35:52 Body mass index 25-29 - overweig ht 737323948 Completed 201503/26/2016 LIAM CARBALLO [address], [place], [address], [facility], [facility] 2 16:59:26 Disorder of vitamin B12 090739111 Active 2015 DONNA quintanilla [facility], [facility] 9 15:35:52 Body mass index 30+ - obesity 096461298 Completed 201602/11/2017 DONNABARBARA CROSS dwight [facility], [facility] 8 08:44:05 Problem Notes None recorded. Procedures Surgical History Date Name Laterality Status Provider Name and Address Organization Details Recorded Time 3 Injections completed Hammad Pham [facility] Internal [facility], [facility] 06/25/2022 10:35:10 3 Injections completed SANJEEV BLIL [facility] 07/29/2022 09:33:44 3 Injections completed nadine nickerson [facility], [facility] 03/22/2022 13:49:14 2 Injections completed uri corbin [facility], [facility] 02/17/2022 15:29:52 2 Injections completed uri corbin [facility], [facility] 01/13/2022 13:53:39 2 [place] [address], [place], [address], [facility], [facility] 02/07/2012 13:23:39 Imaging Results Imaging Date Name Status LastModified by Organiz ation Details LastModified Time 03/04/2022 XR, knee, 3 view completed [facility] [address], [place], [address], 05/27/2022 14:51:08 03/04/2022 XR, knee, 3 view completed [facility] [address], [place], [address], 05/27/2022 14:51:08 03/04/2022 XR, knee, 3 view completed [facility] [address] [place], [address], 05/27/2022 14:51:08 03/04/2022 XR, knee, 3 view completed [facility] [address] [place], [address], 05/27/2022 14:51:08 Procedure Notes None recorded. Medical Equipment None Reported. Allergies Allergen ID Allergen Name Allergen Category Reaction Reaction Severity Criticality Documentation Date Start Date Code Code System Note Provider Name and Address Organization Details Recorded Time 29344 latex environme nt,medica tion hives Not available Not available 02/12/2014 81064 91 RxNorm ashly [facility] 4 09:04:41 94 Substance with sulfonami de structure and antibacte rial mechanism of action (substanc e) medicatio n Not available Not available Not available 02/07/2012 08516 8003 SNOMED Russell [facility] 2 13:06:50 Medications Name Sig Start [...] mg-100 mg tablets in a dose pack (Moderate Renal Dose) TAKE 2 TABLETS LABELLED BY MOUTH [...] Updated DateTime 2 152.4 cm 29.3 kg/m2 08451.8 6 g 97.6 [degF] 16 /min 79 /min 95 % 95 % 136 mm[Hg] 73 mm[Hg] YANNICK MALIK [facility], [facility] 2 11:30:57 Date Recorded Body height Body mass index (BMI) Body weight Heart rate Oxygen saturation Oxygen saturation in Arterial blood by Pulse oximetry Respiratory rate Body temperature Systolic blood pressure Diastolic blood pressure Provider Name and Address Organization Details Last Updated DateTime 3 152.4 cm 29.5 kg/m2 42882.4 5 g 79 /min 96 % 96 % 16 /min 97.8 [degF] 118 mm[Hg] 60 mm[Hg] Hammad Pham [facility], [facility] 3 14:46:48 Date Recorded Body height Body mass index (BMI) Body weight Respiratory rate Body temperature Oxygen saturation Oxygen saturation in Arterial blood by Pulse oximetry Heart rate Systolic blood pressure Diastolic blood pressure Provider Name and Address Organization Details Last Updated DateTime 3 152.4 cm 30.5 kg/m2 10177.4 1 g 16 /min 97.6 [degF] 91 % 91 % 82 /min 132 mm[Hg] 68 mm[Hg] uri corbin [facility], [facility] 3 13:37:48 Date Recorded Respiratory rate Heart rate Oxygen saturation Oxygen saturation in Arterial blood by Pulse oximetry Body temperature Systolic blood pressure Diastolic blood pressure Provider Name and Address Organization Details Last Updated DateTime 3 16 /min 85 /min 94 % 94 % 97.7 [degF] 121 mm[Hg] 71 mm[Hg] Hammad Pham [facility] 3 10:37:29 Social History Question Answer Notes LastModified by Organizat ion Details LastModified Time Tobacco Smoking Status Former Smoker Not Available [facility] 01/08/2020 03:18:43 Do You Have An Advance Directive? Yes [email or web address] Information not available 06/23/2020 Are You Blind Or Do You Have Difficulty Seeing? No [email or web address] Information not available 06/23/2020 Is Blood Transfusion Acceptable In An Emergency? Yes [email or web address] Information not available 02/02/2022 What Is Your Level Of Caffeine Consumption? Occasional [email or web address] Information not available 06/23/2020 How Much Tobacco Do You Chew? None [email or web address] Information not available 06/23/2020 What Is Your Code Status? DNR Information not available 02/02/2022 Are You Deaf Or Do You Have Serious Difficulty Hearing? No [email or web address] Information not available 02/02/2022 What Type Of Diet Are You Following? REGULAR [email or web address] Information not available 06/23/2020 Do You Have A Directive To Physicians? No [email or web address] Information not available 02/02/2022 Education 12 [email or web address] Information no t available 02/07/2012 How Many Days In The Past Year Have You Had A Heavy Drinking Consumption (4+ Female, 5+ Male)? 0 Information not available 04/16/2016 Are There Any Guns Present In Your Home? Yes [email or web address] Information not available 06/23/2020 Hard Of Hearing Or Deaf In One Or Both Ears? No [email or web address] Information not available 02/07/2012 Single Or Multi-level Home/work? Multi Level Home Information not available 06/23/2016 Legally Blind In One Or Both Eyes? No [email or web address] Information not available 02/07/2012 Live Alone Or [...] 12/11/2016 Information not available 06/30/2017 TDAP 01/01/2014 [email or web address] Information n ot available 06/30/2017 Zoster ( Shingles) 03/15/2017 Information not available 06/30/2017 Colonoscopy 03/14/2002 Information not available 06/30/2017 Eye Glaucoma Exam 07/11/2017 Information not available 06/30/2017 Mammogram 01/10/2017 Information n ot available 06/30/2017 Pneumovax 01/24/2008 Information n ot available 06/30/2017 Prevnar 13 06/11/2014 [email or web address] Information n ot available 06/30/2017 List Everyone In The Household, Including Pets Information not available 06/30/2017 Marital Status [email or web address] Informatio n not available 02/07/2012 Do You Have A Medical Power Of Welder Repair? Yes [email or web address] Information not available 02/02/2022 What Was The Date Of Your Most Recent Tobacco Screening? 02/02/2022 [email or web address] Information not available 02/02/2022 Do You Have An Out Of Hospital DNR? No [email or web address] Information not available 02/02/2022 Performs Monthly Self-breast Exam? No [email or web address] Information not available 02/07/2012 Do You Use Your Seat Belt Or Car Seat Routinely? Yes [email or web address] Information not available 06/23/2020 Seat Belts Used Routinely Yes Information not available 02/07/2012 Smoke Alarm In Home Yes [email or web address] Information not available 02/07/2012 How Much Tobacco Do You Smoke? 1 PPD [email or web address] Information not available 06/23/2020 General Stress Level Low [email or web address] Information not available 02/07/2012 Do You Use Sunscreen Routinely? No [email or web address] Information not available 06/23/2020 How Many Years Have You Smoked Tobacco? 20 Information not available 06/23/2020 Sex: Unknown Functional Status Question Answer Note LastModified by Organizat ion Details LastModified Time What is your level of alcohol consumption? None [email or web address] Information not available 06/23/2020 Do you have difficulty walking or climbing stairs? No [email or web address] Information not available 06/23/2020 Do you have difficulty doing errands alone? No Information not available 06/23/2020 Are you able to care for yourself? 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 No [email or web address] Information not available 06/23/2020 What is your exercise level? Occasional [email or web address] Information not available 06/23/2020 Mental Status Question Answer Note LastModified by Organization D etails LastModified Time Do you have difficulty concentrating, remembering or making decisions? No [email or web address] Information no t available 06/23/2020 Family History Relationship Description Onset Age of this Age Resolved Age Notes LastModified by Organization Details LastModified Time Mother Primary malignant neoplasm of pancreas [email or web address] Not available 2015 10:20:53 Medical History Condition Response Anxiety Disorder N Coronary Artery Disease N Gout N Atrial Fibrillation N Arthritis N Kidney Stones N Diabetes - Insulin N BPH N Diverticulitis N Asthma N Hypothyroidism N Depression N COPD N Fatty Liver N Hypercholesterolemia N GERD [...] pneumococcal polysaccharide PPV23 8 completed Not Available [facility] 06/10/2022 00:28:19 Influenza, split virus, trivalent, preservative 2 completed Not Available [facility] 06/10/2022 00:28:19 Influenza, adjuvanted, quadrivalent, PF 1 completed Not Available [facility] 06/10/2022 00:28:19 influenza, unspecified formulation 2 completed Not Available [facility] 06/10/2022 00:28:19 influenza nasal, unspecified formulation 3 completed Not Available [facility] 06/10/2022 00:28:20 zoster live 3 completed Not Available [facility] 07/25/2022 00:15:24 Pneumococcal conjugate PCV 13 5 completed Not Available [facility] 03/31/2019 02:36:20 Influenza, high-dose, trivalent, PF 4 completed Not Available [facility] 06/10/2022 00:28:19 Tdap 4 completed Not Available [facility] 06/10/2022 00:28:19 zoster recombinant 0 completed [place] [id number] [place] [address] [address], [place], [address], [facility], [facility] 01/10/2020 19:09:16 Influenza, split virus, trivalent, preservative 2 completed Not Available [facility] 06/10/2022 00:28:20 zoster live 3 completed Not Available [facility] 06/10/2022 00:28:19 Novel [id number], all formulations 9 completed Not Available [facility] 07/25/2022 00:15:24 Influenza, high-dose, trivalent, PF 5 completed Not Available [facility] 06/10/2022 00:28:19 zoster recombinant 1 completed Rajiv Red [place] [id number] [place] [address] [address], [place], [address], [facility], [facility] 06/13/2020 14:49:33 Influenza, high-dose, trivalent, PF 6 completed Not Available [facility] 06/10/2022 00:28:19 Novel [id number] 9 completed Not Available [facility] 06/10/2022 00:28:20 Influenza, high-dose, trivalent, PF 7 completed Not Available [facility] 06/10/2022 00:28:19 zoster live 3 completed Not Available [facility] 06/10/2022 00:28:19 influenza, unspecified formulation 8 completed Not Available [facility] 06/10/2022 00:28:19 Influenza, split virus, quadrivalent, preservative 9 completed Not Available [facility] 06/10/2022 00:28:19 Influenza, adjuvanted, quadrivalent, PF 0 completed Not Available [facility] 06/10/2022 00:28:19 Influenza, split virus, quadrivalent, preservative 6 completed Not Available [facility] 06/10/2022 00:28:19 Influenza, split virus, quadrivalent, preservative 0 completed Not Available [facility] 06/10/2022 00:28:19 Past Encounters Encounter ID Performer Location Encounter Start Date Encounter Closed Date Diagnosis/Indication Diagnosis SNOMED-CT Code Diagnosis ICD10 Code Diagnosis Note [id number] Rajiv Red MD OFFICE [address] [facility] [address] [place] [address] 02/07/2012 12:42:24 02/07/2012 13:34:51 [id number] Rajiv Red MD OFFICE [address] [facility] [address] [place] [address] 03/01/2012 13:12:11 03/01/2012 13:44:13 [id number] Rajiv Red MD OFFICE [address] [facility] [address] [place] [address] 03/15/2012 08:52:27 03/15/2012 09:42:59 [id number] Rajiv Red MD OFFICE [address] [facility] [address] [place] [address] 04/21/2012 10:08:03 04/21/2012 11:14:32 [id number] Rajiv Red MD OFFICE [address] [facility] [address] [place] [address] 06/19/2013 08:50:48 06/19/2013 10:07:41 Dyspnea 972892847 Asthma 010362858 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 399345613 Vitamin D deficiency 69380715 Pain of hip region 65849083 [id number] Rajiv Red MD OFFICE [address] [facility] [address] [place] [address] 07/09/2013 07:12:45 07/09/2013 07:51:45 Chronic obstructive pulmonary disease 69071331 Dyspnea 298375818 Pain of hip region 35779862 Vitamin D deficiency 79227126 [id number] Rajiv Red MD OFFICE [address] [facility] [address] [place] [address] 07/09/2013 09:17:30 07/09/2013 09:29:33 Adult health examination 822451742 [id number] Rajiv Red MD OFFICE [address] [facility] [address] [place] [address] 01/01/2014 10:53:18 01/01/2014 12:55:01 Asthma 935209634 Chronic ob structive pulmonary disease 83560498 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 163133543 Disorder o f lipid metabolism 671781009 Vitamin D deficiency 46168799 [id number] Rajiv Red MD OFFICE [address] [facility] [address] [place] [address] 02/12/2014 09:02:09 02/12/2014 09:35:29 Chronic obstructive pulmonary disease 75363712 Disorder o f lipid metabolism 692451934 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 654115758 Knee pain 64373648 [id number] Rajiv Red MD OFFICE [address] [facility] [address] [place] [address] 02/27/2014 14:57:59 02/27/2014 16:03:30 Chronic obstructive pulmonary disease 35526623 Knee pain 28259530 Vitamin D deficiency 19244377 Disorder o f lipid metabolism 374991217 [id number] Rajiv Red MD OFFICE [address] [facility] [address] [place] [address] 03/19/2014 11:01:18 03/19/2014 11:26:52 Acute bronchitis 56530035 Chronic ob structive pulmonary disease 48179164 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 045576265 Disorder o f lipid metabolism 345285256 [id number] Rajiv Red MD OFFICE [address] [facility] [address] [place] [address] 05/20/2014 09:09:11 05/20/2014 10:01:17 Disorder of lipid metabolism 930462330 Chronic ob structive pulmonary disease 45469414 Vitamin D deficiency 01924408 Asthma 579719544 Tobacco de pendence syndrome 80180537 [id number] Rajiv Red MD OFFICE [address] [facility] [address] [place] [address] 02/12/2015 08:55:36 02/12/2015 10:04:31 Chronic obstructive pulmonary disease 29929631 J44.9 Disorder o f lipid metabolism 721785709 E78.9 Osteopenia 414186358 M85 .80 Tobacco de pendence syndrome 25306726 F17.290 Vitamin D deficiency 347 77640 E55.9 Asthma 729193851 J45.90 9 Lightheadedness 68227950 8 R42 [id number] Rajiv Red MD OFFICE [address] [place] [address] [address] [place] [address] 03/21/2015 10:17:14 03/21/2015 11:21:29 Acute bronchitis 14979331 J20.9 Cough 38490123 R05 Disorder o f lipid metabolism 162252242 E78.9 Chronic ob structive pulmonary disease 43870699 J44.9 Pneumonia 045776603 J18. 9 Tobacco de pendence syndrome 15436579 F17.290 [id number] Rajiv Red MD OFFICE [address] [place] [address] [address] [place] [address] 03/27/2015 10:09:59 03/27/2015 10:27:46 Adult health examination 960670477 Z00.00 [id number] Rajiv Red MD OFFICE [address] [facility] [address] [place] [address] 05/07/2015 10:12:00 05/07/2015 11:18:55 Chronic obstructive pulmonary disease 94830983 J44.9 Disorder o f lipid metabolism 215257914 E78.9 Tobacco de pendence syndrome 51420150 F17.290 Pain of hip region 77768 002 M25.552 Lightheadedness 61878861 8 R42 Foot pain 26619194 M79.6 71 M79.672 [id number] Rajiv Red MD OFFICE [address] [place] [address] [address] [place] [address] 05/13/2015 09:28:39 05/13/2015 11:01:51 Pneumonia 659458838 J18.9 Chronic ob structive pulmonary disease 95291040 J44.9 Disorder o f lipid metabolism 013358052 E78.9 Multiple n odules of lung 155556219 R91.8 [id number] Rajiv Red [facility] [address] [facility] [address] [place] [address] 05/19/2015 08:30:44 05/19/2015 08:49:36 Chronic obstructive pulmonary disease 12518346 J44.9 Cough 63377459 R05 Multiple n odules of lung 644373538 R91.8 Pneumonia 199270533 J18. 9 Disorder o f lipid metabolism 788145086 E78.9 Acute bronchitis 9539134 2 J20.9 [id number] Rajiv Red MD OFFICE [address] [facility] [address] [place] [address] 05/22/2015 12:11:39 05/22/2015 12:51:08 Disorder of lipid metabolism 811342448 E78.9 Chronic ob structive pulmonary disease 73690811 J44.9 Multiple n odules of lung 340782120 R91.8 Vitamin D deficiency 347 38123 E55.9 Acute bronchitis 7324821 2 J20.9 [id number] Rajiv Red MD OFFICE [address] [facility] [address] [place] [address] 06/12/2015 08:39:02 06/12/2015 09:40:39 Acute bronchitis 74067394 J20.9 Chronic ob structive pulmonary disease 41668165 J44.9 Disorder o f lipid metabolism 145433701 E78.9 Vitamin D deficiency 347 90641 E55.9 Multiple n odules of lung 843904594 R91.8 [id number] Rajiv Red MD OFFICE [address] [facility] [address] [facility] [address] [place] [address] 01/05/2016 10:13:33 01/05/2016 11:31:04 Disorder of lipid metabolism 891616043 E78.9 Chronic ob structive pulmonary disease 21116961 J44.9 Multiple n odules of lung 902241272 R91.8 Asthma 833911864 J45.90 9 Vitamin D deficiency 347 27501 E55.9 Disorder o f vitamin B12 080830040 E53.8 [id number] Rajiv Red MD OFFICE 30222 [facility] [address] [place] [address] 4 01/23/2016 13:03:58 01/23/2016 14:09:20 Multiple nodules of lung 425791221 R91.8 Chronic ob structive pulmonary disease 83253400 J44.9 Body mass index 25-29 - overweight 644234305 Z68.29 Disorder o f lipid metabolism 471015954 E78.9 Disorder o f vitamin B12 287900639 E53.8 [id number] Rajiv Red MD OFFICE 23038 [facility] [address] [place] [address] 01/26/2016 09:52:20 01/26/2016 10:16:13 Disorder of vitamin B12 234887026 E53.8 [id number] Rajiv Red MD OFFICE 24687 [facility] [address] [place] [address] 4 02/02/2016 08:53:21 02/04/2016 13:44:02 Disorder of vitamin B12 753754462 E53.8 [id number] Rajiv Red MD OFFICE 73846 [facility] [address] [place] [address] 4 02/09/2016 08:26:40 02/09/2016 08:35:58 Disorder of vitamin B12 907214496 E53.8 [id number] Rajiv Red MD OFFICE 29899 [facility] [address] [place] [address] 4 02/16/2016 09:02:19 02/16/2016 14:15:36 Disorder of vitamin B12 300569582 E53.8 [id number] Rajiv Red MD OFFICE 88933 [facility] [address] [place] [address] 4 03/16/2016 08:04:02 03/16/2016 08:21:59 Disorder of vitamin B12 300613154 E53.8 [id number] Rajiv Red MD OFFICE 96737 [facility] [address] [place] [address] 03/26/2016 09:26:32 03/26/2016 10:58:10 Multiple nodules of lung 177910930 R91.8 Vitamin D deficiency 347 26846 E55.9 Disorder o f vitamin B12 612574094 E53.8 Body mass index 30+ - obesity 756361764 Z68.39 Chronic ob structive pulmonary disease 36532445 J44.9 Disorder o f lipid metabolism 965957028 E78.9 Osteopenia 608727548 M85 .80 Body mass index 25-29 - overweight 323315390 Z68.29 [id number] Rajiv Red MD OFFICE [address] [place] [address] [address] [place] [address] 4 04/16/2016 12:21:26 04/16/2016 12:30:59 Disorder of vitamin B12 383114937 E53.8 [id number] Rajiv Red MD OFFICE [address] [place] [address] [address] [place] [address] 4 05/12/2016 10:21:34 05/12/2016 10:58:42 Disorder of vitamin B12 392432426 E53.8 [id number] Rajiv Red MD OFFICE [address] [place] [address] [address] [place] [address] 4 06/14/2016 10:45:52 06/14/2016 11:04:52 Disorder of vitamin B12 837100877 E53.8 [id number] Rajiv Red MD OFFICE [address] [place] [address] [address] [place] [address] 4 06/22/2016 15:26:44 06/22/2016 16:46:13 Disorder of vitamin B12 810665220 E53.8 Disorder o f lipid metabolism 630403576 E78.9 Chronic ob structive pulmonary disease 11237266 J44.9 Body mass index 30+ - obesity 507713019 Z68.30 Depression screening 171 419226 Z13.89 Multiple n odules of lung 914996209 R91.8 [id number] Rajiv Red MD OFFICE 45321 [facility] [address] [place] [address] 4 06/23/2016 08:02:28 06/23/2016 11:14:42 Adult health examination 030717781 Z00.00 [id number] Rajiv Red MD OFFICE [address] [place] [address] [address] [place] [address] 4 01/18/2017 09:26:16 01/18/2017 15:23:01 Disorder of vitamin B12 914580293 E53.8 [id number] Rajiv Red MD OFFICE [address] [place] [address] [address] [place] [address] 4 02/11/2017 14:00:48 02/11/2017 15:55:40 Disorder of lipid metabolism 497563536 E78.9 Vitamin D deficiency 347 92738 E55.9 Disorder o f vitamin B12 578564473 E53.8 Chronic ob structive pulmonary disease 35278134 J44.9 Long-term drug therapy 026362287 Z79.899 Body mass index 25-29 - overweight 403139550 Z68.29 Multiple n odules of lung 359186301 R91.8 Essential hypertension 70045858 I10 [id number] Rajiv Red MD OFFICE 00286 [facility] [address] [place] [address] 02/25/2017 14:54:27 02/25/2017 15:59:32 Vitamin D deficiency 14509583 E55.9 Disorder o f lipid metabolism 699771404 E78.9 Chronic ob structive pulmonary disease 78228924 J44.9 Long-term drug therapy 904978259 Z79.899 Body mass index 25-29 - overweight 132799351 Z68.29 Essential hypertension 19602520 I10 Varicose v eins of lower extremity 52734026 I83.891 [id number] Rajiv Red MD OFFICE 31981 [facility] [address] [place] [address] 03/15/2017 08:16:31 03/15/2017 09:06:18 Essential hypertension 06950948 I10 Disorder o f lipid metabolism 599424820 E78.9 Long-term drug therapy 262812664 Z79.899 Body mass index 25-29 - overweight 507257403 Z68.29 Disorder o f vitamin B12 270872737 E53.8 Venous varices 188548353 I83.92 Cough 74215632 R05 [id number] Elizabeth Koo MD OFFICE 91069 [facility] [address] [place] [address] 03/30/2017 13:50:57 03/30/2017 14:45:39 Essential hypertension 73105172 I10 Long-term drug therapy 915549714 Z79.899 Body mass index 25-29 - overweight 700252980 Z68.29 [id number] Rajiv Red MD OFFICE 25475 [facility] [address] [place] [address] 04/08/2017 08:58:00 04/08/2017 09:46:13 Disorder of vitamin B12 293685711 E53.8 [id number] Rajiv Red MD OFFICE 21674 [facility] [address] [place] [address] 04/26/2017 14:31:07 04/26/2017 15:38:55 Disorder of lipid metabolism 980020640 E78.9 Disorder o f vitamin B12 572481786 E53.8 Multiple n odules of lung 451956328 R91.8 Chronic ob structive pulmonary disease 30480434 J44.9 Essential hypertension 91862288 I10 Long-term drug therapy 199873082 Z79.899 Body mass index 25-29 - overweight 132508643 Z68.29 [id number] Rajiv Red MD OFFICE [address] [place] [address] [address] [place] [address] 4 05/05/2017 07:13:09 05/05/2017 07:53:43 Multiple nodules of lung 843974835 R91.8 Chronic ob structive pulmonary disease 32821199 J44.9 Essential hypertension 72257306 I10 Disorder o f lipid metabolism 013391521 E78.9 Long-term drug therapy 491984215 Z79.899 Depression screening 171 147618 Z13.89 Body mass index 30+ - obesity 640666668 Z68.30 [id number] Elizabeth Koo MD OFFICE [address] [place] [address] [address] [place] [address] 4 05/13/2017 11:15:47 05/13/2017 13:25:11 Disorder of vitamin B12 833200003 E53.8 [id number] Rajiv Red MD OFFICE [address] [place] [address] [address] [place] [address] 06/03/2017 08:03:43 06/03/2017 09:09:35 Multiple nodules of lung 478617624 R91.8 Chronic ob structive pulmonary disease 12400342 J44.9 Essential hypertension 68975822 I10 Long-term drug therapy 381998709 Z79.899 Body mass index 25-29 - overweight 472090252 Z68.29 Disorder o f lipid metabolism 918972413 E78.9 Blurring o f visual image 856115700 H53.8 Cough 59694029 R05 [id number] Rajiv Red MD OFFICE 29370 [facility] [address] [place] [address] 4 06/17/2017 08:53:22 06/17/2017 10:04:12 Multiple nodules of lung 869200552 R91.8 Chronic ob structive pulmonary disease 58850021 J44.9 Disorder o f lipid metabolism 288468270 E78.9 Essential hypertension 98584682 I10 Long-term drug therapy 949706613 Z79.899 Body mass index 30+ - obesity 364439855 Z68.31 Disorder o f vitamin B12 254611620 E53.8 [id number] Rajiv Red MD OFFICE [address] [place] [address] [address] [place] [address] 4 06/29/2017 07:08:07 06/29/2017 07:53:52 Multiple nodules of lung 273639411 R91.8 Chronic ob structive pulmonary disease 17811395 J44.9 Essential hypertension 89623921 I10 Long-term drug therapy 188332483 Z79.899 Body mass index 25-29 - overweight 808005374 Z68.29 Venous varices 828930983 I83.92 Dizziness 089282582 R42 Orthostati c hypotension 58149379 I95.1 [id number] Rajiv Red MD OFFICE [address] [place] [address] [address] [place] [address] 4 06/30/2017 08:35:51 06/30/2017 14:42:18 Adult health examination 957701068 Z00.00 [id number] LIAM COSTA OFFICE [address] [place] [address] Road [address] [place] [address] 4 07/07/2017 08:26:41 07/07/2017 09:15:58 Essential hypertension 72181070 I10 Disorder o f lipid metabolism 726012334 E78.9 Chronic ob structive pulmonary disease 12041795 J44.9 Disorder o f vitamin B12 318013453 E53.8 Long-term drug therapy 245878970 Z79.899 Body mass index 30+ - obesity 726656918 Z68.30 Venous varices 779588736 I83.90 Multiple n odules of lung 048577648 R91.8 Orthostati c hypotension 29840539 I95.1 Impacted cerumen 7970999 6 H61.21 [id number] Rajiv Red MD OFFICE 74085 [facility] [address] [place] [address] 4 07/11/2017 10:36:49 07/11/2017 11:15:16 Essential hypertension 08484741 I10 Disorder o f lipid metabolism 695763133 E78.9 Disorder o f vitamin B12 029560587 E53.8 Chronic ob structive pulmonary disease 89965359 J44.9 Long-term drug therapy 569608306 Z79.899 Body mass index 30+ - obesity 986274015 Z68.30 Impacted cerumen 9229806 6 H61.21 [id number] Rajiv Red MD OFFICE [address] [place] [address] Road [address] [place] [address] 4 01/06/2018 09:38:16 01/06/2018 11:29:37 Essential hypertension 04779649 I10 Disorder o f lipid metabolism 360715532 E78.9 Chronic ob structive pulmonary disease 35775554 J44.9 Vitamin D deficiency 347 65863 E55.9 Tobacco de pendence syndrome 33396715 F17.290 Long-term drug therapy 727182517 Z79.899 Body mass index 30+ - obesity 524004581 Z68.30 Disorder o f vitamin B12 471701889 E53.8 Multiple n odules of lung 036527597 R91.8 Venous varices 561081441 I83.92 Dizziness 295932475 R42 Orthostati c hypotension 64568788 I95.1 [id number] Rajiv Red MD OFFICE 82866 [facility] [address] [place] [address] 4 01/19/2018 15:36:10 01/20/2018 09:41:13 Essential hypertension 44371671 I10 Disorder o f lipid metabolism 675599954 E78.9 Dizziness 086699497 R42 Chronic ob structive pulmonary disease 42073473 J44.9 Asthma 018109087 J45.90 9 Long-term drug therapy 421310002 Z79.899 Body mass index 30+ - obesity 424190390 Z68.30 Multiple n odules of lung 414723986 R91.8 Disorder o f vitamin B12 695338610 E53.8 Venous varices 151062431 I83.92 Vertigo 957473399 R42 Orthostati c hypotension 68261893 I95.1 Syncope 442747329 R55 [id number] Rajiv Red MD OFFICE 96744 [facility] [address] [place] [address] 02/06/2018 13:57:44 02/06/2018 15:34:36 Essential hypertension 89244487 I10 Vertigo 013501814 R42 Dizziness 270337221 R42 Syncope 104252242 R55 Chronic ob structive pulmonary disease 82065375 J44.9 Orthostati c hypotension 79162888 I95.1 Long-term drug therapy 382215302 Z79.899 Body mass index 30+ - obesity 317640409 Z68.31 Disorder o f vitamin B12 061993062 E53.8 Multiple n odules of lung 344589158 R91.8 Pulmonary hypertension 68346865 I27.20 Palpitations 56080956 R0 0.2 [id number] Rajiv Red MD OFFICE [address] [place] [address] Road [address] [place] [address] 4 02/27/2018 14:40:20 02/27/2018 15:09:24 Essential hypertension 22964832 I10 Chronic ob structive pulmonary disease 65508930 J44.9 Tobacco de pendence syndrome 81399531 F17.290 Vertigo 413136201 R42 Long-term drug therapy 660212109 Z79.899 Body mass index 30+ - obesity 338133070 Z68.31 Supraventr icular tachycardia 8289468 I47.1 Ventricula r tachycardia 58995641 I47.2 Lightheadedness 89911574 8 R42 Syncope 534808806 R55 [id number] Rajiv Red MD OFFICE 36345 [facility] [address] [place] [address] 03/30/2018 13:43:09 03/30/2018 15:08:43 Chronic obstructive pulmonary disease 84652065 J44.9 Essential hypertension 84614931 I10 Disorder o f lipid metabolism 487290709 E78.9 Long-term drug therapy 224491130 Z79.899 Body mass index 30+ - obesity 887268840 Z68.31 Depression screening 171 574474 Z13.89 Syncope 213838542 R55 Supraventr icular tachycardia 9928486 I47.1 Ventricula r tachycardia 19606744 I47.2 Disorder o f vitamin B12 283875605 E53.8 [id number] Rajiv Red MD OFFICE 49071 [facility] [address] [place] [address] 05/19/2018 08:52:38 05/19/2018 10:36:23 Chronic obstructive pulmonary disease 49015702 J44.9 Stable. Continue inhalers. Continue follow-up with pulmonary. Disorder o f lipid metabolism 954866717 E78.9 Stable on statin therapy. No change in regimen. Screening abdominal aortic aneurysm performed in office today. Results revealed aorta < 3cm. These results were discussed and reviewed with the patient. Multiple n odules of lung 538960990 R91.8 Stable. Continue follow-up with pulmonary. Body mass index 30+ - obesity 801070330 Z68.30 Down 6 lbs. The patient is to work on weight with proper diet and exercise. Patient knows to eat a low sodium, low cholestero l and low carbohydra te diet. Patient is to stay active and exercise at least 30 to 45 minutes 3-5 times a week or as best tolerated. Patient understand s and agrees to the plan. Long-term drug therapy 861824621 Z79.899 Disorder o f vitamin B12 443734463 E53.8 Stable. Continue supplement s. Received injection today. Given by MA. Essential hypertension 62764247 I10 Stable. Continue current regimen. Cough 71501942 R05 New onset dry cough Began after [...] pulmonary also if no better after changes. [id number] Rajiv Red MD OFFICE 12425 [facility] [address] [place] [address] 06/08/2018 09:39:23 06/08/2018 10:49:58 Supraventricular tachycardia 4133059 I47.1 HR stable on lower dose of BB Essential hypertension 99010784 I10 Stable. Continue current regimen. Chronic ob structive pulmonary disease 92010766 J44.9 Stable. Continue inhalers. Continue follow-up with pulmonary. Multiple n odules of lung 311422190 R91.8 Stable. Continue follow-up with pulmonary. Disorder o f lipid metabolism 069224902 E78.9 Stable on statin therapy. Continue regimen. Body mass index 30+ - obesity 130834038 Z68.31 Was down 6lbs but now up [...] agrees to the plan. Long-term drug therapy 581632320 Z79.899 Cough 85064140 R05 Recent new onset dry cough This [...] Discussed following up with her PCP [facility] [place]. We will see her back in 1 month prior to going home. [id number] Rajiv Red MD OFFICE 67362 [facility] [address] [place] [address] 07/06/2018 09:52:07 07/06/2018 10:52:31 Disorder of vitamin B12 690741395 E53.8 Stable. Continue supplement s. Received injection today. Given by [facility]. Disorder o f lipid metabolism 882109037 E78.9 Stable on statin therapy. Continue regimen. Essential hypertension 26728509 I10 Stable. Continue current regimen. Chronic ob structive pulmonary disease 78155531 J44.9 Stable. Continue inhalers. Continue follow-up with pulmonary. Long-term drug therapy 882245782 Z79.899 Body mass index 30+ - obesity 019684124 Z68.30 Was down 6lbs but now up [...] to the plan. Alcohol co nsumption screening 547956218 Z13.89 Leukopenia 36216252 D72. 819 New onset at 4.1. B12 low normal. No B symptoms. Going [facility]. Suggest repeat lab with provider [facility]. [id number] Rajiv Red MD OFFICE 77217 [facility] [address] [place] [address] 01/08/2019 15:31:45 01/08/2019 16:48:07 Essential hypertension 78904049 I10 Disorder o f lipid metabolism 891053517 E78.9 Supraventr icular tachycardia 3790639 I47.1 Long-term drug therapy 555894723 Z79.899 Body mass index 30+ - obesity 378485166 Z68.30 Fatigue 16816031 R53.83 [id number] Rajiv Red MD OFFICE 09959 [facility] [address] [place] [address] 03/12/2019 14:09:18 03/12/2019 14:47:08 Essential hypertension 78746829 I10 Chronic ob structive pulmonary disease 80654123 J44.9 Disorder o f lipid metabolism 065365763 E78.9 Asthma 717910272 J45.90 9 Supraventr icular tachycardia 8436786 I47.1 Leukopenia 54635832 D72. 819 Long-term drug therapy 350212587 Z79.899 Body mass index 30+ - obesity 580358672 Z68.30 Disorder o f vitamin B12 026951635 E53.8 Serum crea tinine above reference range 235906969 R79.89 [id number] Rajiv Red MD OFFICE 15499 [facility] [address] [place] [address] 03/16/2019 14:26:34 03/16/2019 14:34:38 Adult health examination 205165951 Z00.00 [id number] Rajiv Red MD OFFICE 28809 [facility] [address] [place] [address] 04/03/2019 09:59:30 04/03/2019 11:07:46 Disorder of lipid metabolism 669590030 E78.9 Essential hypertension 42763413 I10 Chronic ob structive pulmonary disease 71045312 J44.9 Long-term drug therapy 496373171 Z79.899 Body mass index 30+ - obesity 104085020 Z68.31 Depression screening 171 035971 Z13.89 Acute bronchitis 6102436 2 J20.9 Influenza 9479189 J11.1 [id number] Rajiv Red MD OFFICE 99497 [facility] [address] [place] [address] 4 04/04/2019 09:51:52 04/04/2019 11:31:27 Essential hypertension 61972291 I10 Disorder o f lipid metabolism 285552720 E78.9 Leukopenia 57070026 D72. 819 Supraventr icular tachycardia 5465199 I47.1 Chronic ob structive pulmonary disease 93276640 J44.9 Asthma 331119402 J45.90 9 Long-term drug therapy 975207404 Z79.899 Body mass index 30+ - obesity 094097694 Z68.31 Acute bronchitis 0903382 2 J20.9 [id number] Rajiv Red MD OFFICE 38322 [facility] [address] [place] [address] 04/11/2019 10:21:30 04/11/2019 11:17:17 Supraventricular tachycardia 7735579 I47.1 Pulmonary hypertension 05108907 I27.20 Essential hypertension 59544031 I10 Disorder o f lipid metabolism 065533607 E78.9 Chronic ob structive pulmonary disease 37069076 J44.9 Asthma 954006515 J45.90 9 Long-term drug therapy 665585282 Z79.899 Body mass index 30+ - obesity 861691645 Z68.31 Disorder o f vitamin B12 650149746 E53.8 Acute bronchitis 5068066 2 J20.9 [id number] Rajiv Red MD OFFICE 41768 [facility] [address] [place] [address] 04/17/2019 13:10:14 04/17/2019 13:54:22 Supraventricular tachycardia 8044714 I47.1 Pulmonary hypertension 00721456 I27.20 Essential hypertension 69059838 I10 Chronic ob structive pulmonary disease 39563847 J44.9 Asthma 850831066 J45.90 9 Long-term drug therapy 381784339 Z79.899 Body mass index 30+ - obesity 062689063 Z68.31 Serum crea tinine above reference range 169510851 R79.89 [id number] Rajiv Red MD OFFICE 66101 [facility] [address] [place] [address] 04/23/2019 10:07:34 04/23/2019 11:08:58 Essential hypertension 83018941 I10 Disorder o f lipid metabolism 895739259 E78.9 Chronic ob structive pulmonary disease 91346964 J44.9 Long-term drug therapy 722804237 Z79.899 Body mass index 30+ - obesity 671079314 Z68.32 Serum crea tinine above reference range 338053247 R79.89 [id number] Rajiv Red MD OFFICE 33962 [facility] [address] [place] [address] 05/14/2019 09:57:03 05/14/2019 11:08:01 Chronic kidney disease stage 3 113074654 N18.3 Supraventr icular tachycardia 5924945 I47.1 Disorder o f lipid metabolism 998961672 E78.9 Long-term drug therapy 525187165 Z79.899 Body mass index 30+ - obesity 310424114 Z68.32 Disorder o f vitamin B12 213594229 E53.8 Essential hypertension 64645019 I10 [id number] Rajiv Red MD OFFICE 36271 [facility] [address] [place] [address] 06/04/2019 14:27:13 06/04/2019 15:17:08 Chronic kidney disease stage 3 958376853 N18.3 Disorder o f lipid metabolism 694325504 E78.9 Multiple n odules of lung 513302835 R91.8 Essential hypertension 89390401 I10 Long-term drug therapy 840099119 Z79.899 Body mass index 30+ - obesity 110030124 Z68.32 Cyst of kidney 660756691 N28.1 [id number] Rajiv Red MD OFFICE 49469 [facility] [address] [place] [address] 07/09/2019 10:03:21 07/09/2019 10:46:10 Disorder of vitamin B12 936192316 E53.8 Essential hypertension 67330355 I10 Chronic ki dney disease stage 3 035534430 N18.3 Supraventr icular tachycardia 0309382 I47.1 Cyst of kidney 797255755 N28.1 Chronic ob structive pulmonary disease 00133411 J44.9 Long-term drug therapy 075466746 Z79.899 Body mass index 30+ - obesity 839836809 Z68.31 Pulmonary hypertension 63748599 I27.20 Fatigue 93523996 R53.83 [id number] Rajiv Red MD OFFICE [address] [place] [address] [address] [place] [address] 4 08/07/2019 12:36:55 08/07/2019 12:59:54 Disorder of vitamin B12 260378198 E53.8 [id number] Rajiv Red MD OFFICE [address] [place] [address] [address] [place] [address] 4 01/07/2020 10:37:53 01/07/2020 11:49:16 Essential hypertension 80269444 I10 Disorder o f vitamin B12 759492208 E53.8 Chronic ki dney disease stage 3 523045283 N18.31 Supraventr icular tachycardia 8272277 I47.1 Cyst of kidney 185762205 N28.1 Chronic ob structive pulmonary disease 81176056 J44.9 Pulmonary hypertension 87208010 I27.20 Long-term drug therapy 579418647 Z79.899 Body mass index 30+ - obesity 509136431 Z68.30 Disorder o f lipid metabolism 471048600 E78.9 Asthma 729706709 J45.90 9 Osteopenia 622444421 M85 .80 Alcohol co nsumption screening 077919903 Z13.89 Screening for osteoporosis 362684413 Z13.820 Normal grief reaction 27 2306907 F43.20 [id number] Rajiv Red MD OFFICE 48581 [facility] [address] [place] [address] 4 01/10/2020 14:48:12 01/10/2020 15:05:35 Vitamin deficiency 82429462 E56.9 Immunization due 0076866 08 Z28.3 [id number] Rajiv Red MD OFFICE [address] [place] [address] [address] [place] [address] 4 02/21/2020 10:57:27 02/21/2020 12:11:59 Essential hypertension 83802513 I10 Supraventr icular tachycardia 7403893 I47.1 Cyst of kidney 332743719 N28.1 Pulmonary hypertension 96815634 I27.20 Osteopenia 851858473 M85 .80 Long-term drug therapy 699790683 Z79.899 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 20 Computed t omography result abnormal 267277526 R93.89 Body mass index 25-29 - overweight 836735428 Z68.29 Vitamin deficiency 89688 002 E56.9 [id number] Rajiv Red MD OFFICE [address] [place] [address] [address] [place] [address] 4 03/11/2020 11:34:04 03/11/2020 12:10:06 Disorder of vitamin B12 479862244 E53.8 [id number] Rajiv Red MD OFFICE [address] [place] [address] [address] [place] [address] 04/03/2020 10:24:31 04/03/2020 11:24:03 Depression screening 474626101 Z13.89 Essential hypertension 88386743 I10 Supraventr icular tachycardia 0895554 I47.1 Cyst of kidney 150819393 N28.1 Long-term drug therapy 216860874 Z79.899 Pulmonary hypertension 83473973 I27.20 Steatotic liver disease 185111537 K76.0 Computed t omography result abnormal 944573697 R93.89 Body mass index 25-29 - overweight 876692145 Z68.29 [id number] Rajiv Red MD OFFICE 93991 [facility] [address] [place] [address] 04/21/2020 09:07:20 04/21/2020 09:18:52 Disorder of vitamin B12 755969646 E53.8 [id number] Rajiv Red MD OFFICE [address] [place] [address] [address] [place] [address] 05/05/2020 10:38:03 05/05/2020 12:05:36 Essential hypertension 55890867 I10 Supraventr icular tachycardia 4618918 I47.1 Cyst of kidney 771751479 N28.1 Pulmonary hypertension 61087901 I27.20 Steatotic liver disease 539157912 K76.0 Computed t omography result abnormal 508534253 R93.89 Long-term drug therapy 454416703 Z79.899 Body mass index 25-29 - overweight 075869147 Z68.29 Chronic ob structive pulmonary disease 23999425 J44.9 Chronic ki dney disease stage 3 242692686 N18.31 [id number] Rajiv Red MD OFFICE [address] [facility] [address] [place] [address] 4 05/06/2020 16:22:20 05/06/2020 16:32:54 Adult health examination 754871086 Z00.00 [id number] Rajiv Red MD OFFICE [address] [facility] [address] [place] [address] 4 05/07/2020 10:07:49 05/07/2020 11:02:47 Essential hypertension 08497169 I10 Long-term drug therapy 605633725 Z79.899 Exposure t o coronavirus infection 332661487 Z20.828 I wore proper PPE to examine patient. Limited physical exam due to COVID-19 infection to limit transmissi on of disease. Was able to contain enough informatio n by data review and discussion . Supraventr icular tachycardia 8186220 I47.1 Cyst of kidney 781382582 N28.1 Body mass index 25-29 - overweight 612309329 Z68.29 [id number] Rajiv Red MD OFFICE [address] [facility] [place] [address] 4 05/29/2020 10:46:02 05/29/2020 12:10:28 Long-term drug therapy 888861437 Z79.899 Body mass index 25-29 - overweight 593573328 Z68.29 Essential hypertension 66229658 I10 Supraventr icular tachycardia 7662736 I47.1 COVID-19 292645769 U07.1 [id number] Rajiv Red MD OFFICE [address] [place] [address] 4 06/13/2020 14:41:47 06/13/2020 15:00:46 Active or passive immunization 942926536 Z23 [id number] Rajiv Red MD OFFICE [address] [facility] [address] [place] [phone] 06/23/2020 11:17:43 06/23/2020 12:12:30 Essential hypertension 68011681 I10 Cyst of kidney 853088293 N28.1 Pulmonary hypertension 36163752 I27.20 Computed t omography result abnormal 965570046 R93.89 Chronic ki dney disease stage 3 398618660 N18.31 Long-term drug therapy 966720330 Z79.899 Body mass index 25-29 - overweight 380618964 Z68.29 Disorder o f lipid metabolism 422175527 E78.9 Microscopic hematuria 19 7919386 R31.29 [id number] Rajiv Red MD OFFICE [address] [facility] [address] [place] [address] 01/05/2021 10:30:30 01/05/2021 11:25:07 Cyst of kidney 042610476 N28.1 renal ultrasound from her 2020 much improved Pulmonary hypertension 63484837 I27.20 likely result of COPD noted on echo Chronic ki dney disease stage 3 909211271 N18.31 follow-up labs avoid nephrotoxi ns Essential hypertension 97008482 I10 on olmesartan no dizziness or syncope Disorder o f lipid metabolism 430191134 E78.9 no myalgias or arthralgia s continue current approach Chronic ob structive pulmonary disease 04727465 J44.9 doing well no recent exacerbati on did give Covid 19 vaccine Disorder o f vitamin B12 014369025 E53.8 Body mass index 30+ - obesity 287993210 Z68.30 Long-term drug therapy 705402635 Z79.899 Fatigue 39341549 R53.83 Venous varices 131030767 I83.[address] Melo vascular surgery [id number] Rajiv Red MD OFFICE [address] [facility] [address] [place] [address] 03/02/2021 10:21:34 03/02/2021 11:15:57 Pulmonary hypertension 33320163 I27.20 03/02/21 Continue to follow with pulmonolog y for monitoring Disorder o f lipid metabolism 186568529 E78.9 03/02/21 Triglyceri prabhakar are elevated at 119 and LDL is elevated at 1 discussed low sugar, low-carb diet and routine exercise for improvemen t of these levels. Patient understood and agreed. Long-term drug therapy 562666109 Z79.899 Essential hypertension 33434006 I10 03/02/21 Blood pressure stable at today's visit with a reading of 122/78. Chronic ki dney disease stage 3 064609454 N18.31 03/02/21 Stable at this time. Continue to monitor with interval labs Cyst of kidney 957560046 N28.1 03/02/21 renal ultrasound from her 2020 much improved Body mass index 30+ - obesity 425298152 Z68.30 Chronic ob structive pulmonary disease 41913719 J44.9 03/02/21 Stable at this time. Continue to follow with pulmonolog y Disorder o f vitamin B12 909049731 E53.8 03/02/21 continue supplement ation Venous varices 272122756 I83.92 03/02/21 saw vascular surgery on 01/12/2021 for venous varices they recommende d conservati ve therapy at this time. Patient will keep legs elevated and wear compressio n stockings at this time. She will continue to follow with vascular surgery at this time. At [facility] risk for falls 076821586 Z91.81 declined PT Multiple n odules of lung 648022674 R91.8 03/02/21 saw pulmonolog y on 01/26/2021 . Patient has a history of lung nodules and recent chest CT showed no changes to the nodules at this time. She will continue to follow with pulmonolog y and will continue to have chest CTs annually. [id number] LIAM CARBALLO OFFICE [address] [facility] [address] [place] [address] 04/09/2021 13:55:51 04/09/2021 14:43:32 Disorder of vitamin B12 184178819 E53.8 Patient continue with B12 injections . She is doing well at this time. Continue with the regimen. Pulmonary hypertension 03336886 I27.20 Stable. Patient denies any cough shortness of breath or chest pain. Body mass index 30+ - obesity 331797871 Z68.30 Disorder o f lipid metabolism 422403937 E78.9 Stable. Although total cholestero l and HDL within the range, patient has high triglyceri prabhakar at 192 and LDL 101. She is taking no statin at this time. Patient declines further medical therapy. Long-term drug therapy 872973442 Z79.899 Essential hypertension 03180187 I10 Stable. Blood pressure today 116/64 at goal. Continue on present therapy. Chronic ki dney disease stage 3 173362744 N18.31 Stable. Her last GFR creatinine 1.01 and GFR 51 stable at this time we will continue monitoring . Patient is asymptomat ic at this time Acute cystitis 05895417 N30.00 New onset. Patient very symptomati c for the past few days. Patient advised to stop medical therapy on Macrobid milligrams twice daily for the next 5 days. I also advised on increase the water cranberry juice probiotics and avoid any irritants such as alcohol or coffee. Patient verbalizes understand ing. We will send out for culture Depression screening 171 507075 Z13.31 [id number] Rajiv Red MD OFFICE [address] [place] [address] [address] [place] [phone] 05/20/2021 13:32:00 05/20/2021 14:38:07 Disorder of vitamin B12 963650910 E53.8 03/02/21 continue supplement ation [id number] Rajiv Red MD OFFICE [address] [place] [address] [place], [place] [address] 05/28/2021 13:46:18 05/28/2021 15:22:50 Pulmonary hypertension 06456966 I27.20 05/28/21 stable. continue to monitor for symptoms Body mass index 30+ - obesity 576476359 Z68.30 05/28/21 continue to work on weight reduction Disorder o f lipid metabolism 541891663 E78.9 05/28/21 Not currently on statin therapy. Continue to control with diet and exercise Long-term drug therapy 275506139 Z79.899 Essential hypertension 91638225 I10 05/28/21 Blood pressure stable today with a reading of 128/70. Chronic ki dney disease stage 3 520133557 N18.31 05/28/21 stable. continue to monitor with interval labs Cyst of kidney 316764827 N28.1 05/28/21 continues to follow with Dr. Feliz from urology who monitors it. She also informs me that she has an appointmen t coming up with him at the beginning of June. Acute cystitis 95149966 N30.00 05/28/21 Resolved New onset. Patient very [...] for culture Disorder o f vitamin B12 707692066 E53.8 05/28/21 continue supplement ation Patient continue with B12 injections . She is doing well at this time. Continue with the regimen. Multiple n odules of lung 404890485 R91.8 05/28/21 continue to follow with Dr. Rodriguez with pulmonolog y for monitoring 03/02/21 saw pulmonolog y on 01/26/2021 . Patient has a history of lung nodules and recent chest CT showed no changes to the nodules at this time. She will continue to follow with pulmonolog y and will continue to have chest CTs annually. Chronic ob structive pulmonary disease 17673980 J44.9 05/28/21 Stable at this time. Continue to follow with Dr. Rodriguez with pulmonolog y Venous varices 664133607 I83.92 05/28/21 Continues to follow with Dr. Melo for monitoring 03/02/21 saw vascular surgery on 01/12/2021 for venous varices they recommende d conservati ve therapy at this time. Patient will keep legs elevated and wear compressio n stockings at this time. She will continue to follow with vascular surgery at this time. Fatigue 84069827 R53.83 [id number] Rajiv Red MD OFFICE [address] [facility] [address] [place] [address] 06/16/2021 14:41:05 06/16/2021 15:00:52 Disorder of vitamin B12 411180125 E53.8 05/28/21 continue supplement ation Patient continue with B12 injections . She is doing well at this time. Continue with the regimen. 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 Continue to control with diet and exercise Long-term drug therapy 409216662 Z79.899 Essential hypertension 13678844 I10 09/22/21 Continue current antihypert ensive medication regimen Chronic ki dney disease stage 3 238205470 N18.31 09/22/21 Stable. Continue to monitor with interval labs Cyst of kidney 355108969 N28.1 09/22/21 Continue to follow with urology for monitoring 05/28/21 continues to follow with Dr. Feliz from urology who monitors it. She also informs me that she has an appointmen t coming up with him at the beginning of June. Multiple n odules of lung 368662454 R91.8 09/22/21 continue to follow with Dr. Rodriguez with pulmonolog y for monitoring 03/02/21 saw pulmonolog y on 01/26/2021 . Patient has a history of lung nodules and recent chest CT showed no changes to the nodules at this time. She will continue to follow with pulmonolog y and will continue to have chest CTs annually. Chronic ob structive pulmonary disease 56820783 J44.9 09/22/21 Stable at this time. Continue to follow with Dr. Rodriguez with pulmonolog y Venous varices 588435342 I83.92 09/22/21 Continues to follow with Dr. Melo for monitoring 03/02/21 saw vascular surgery on 01/12/2021 for venous varices they recommende d conservati ve therapy at this time. Patient will keep legs elevated and wear compressio n stockings at this time. She will continue to follow with vascular surgery at this time. Disorder o f vitamin B12 899398732 E53.8 09/22/21 continue supplement ation Patient continue with B12 injections . She is doing well at this time. Continue with the regimen. [id number] LIAM CARBALLO OFFICE [address] [facility] [address] [place] [address] 01/01/2022 10:02:06 01/01/2022 11:39:22 Essential hypertension 19154738 I10 01/01/2022 : Asymptomat ic. Stable. Controlled . Continue current medication regimen. Maintain low-sodium diet. 09/22/21 Continue current antihypert ensive medication regimen Multiple n odules of lung 787338700 R91.8 01/01/2022 : Patient continues to be [...] CTs annually. Disorder o f lipid metabolism 354392929 E78.9 01/01/2022 : Asymptomat ic. No red flag symptoms. Continue current regimen. Recheck lipid panel. 09/22/21 Not currently on statin therapy. Continue to control with diet and exercise Chronic ob structive pulmonary disease 73782145 J44.9 01/01/2022 : Mildly worsening dyspnea on exertion since returning recently from [facility]. Patient has upcoming appointmen t with pulmonolog y in a few weeks. In the meantime, patient's Proventil is refilled. 09/22/21 Stable at this time. Continue to follow with Dr. Rodriguez with pulmonolog y Venous varices 739704981 I83.92 01/01/2022 : Patient seen by vascular [...] time. Chronic ki dney disease stage 3 039559837 N18.31 01/01/2022 : Stable. Stay well-hydra ivonne. Avoid nephrotoxi ns. CMP. 09/22/21 Stable. Continue to monitor with interval labs Body mass index 30+ - obesity 647342662 Z68.30 09/22/21 continue to work on weight reduction Long-term drug therapy 813904362 Z79.899 Asthma 131672359 J45.90 9 Alcohol co nsumption screening 981143783 Z13.89 Rheumatoid arthritis 698 63992 M06.9 01/01/2022 : Recently seen by rheumatkiarra howard in [facility]. received corticoste roid injection to the right wrist. Patient notes marked improvemen t. Patient also notes injection bilateral knees also marked improvemen t. [id number] LIAM CARBALLO OFFICE [address] [facility] [address] [place] [address] 01/13/2022 13:25:52 01/13/2022 14:45:07 Disorder of vitamin B12 733321153 E53.8 [id number] LIAM CARBALLO OFFICE [address] [facility] [address] [place] [address] 02/02/2022 10:21:39 02/02/2022 11:40:13 Essential hypertension 67507249 I10 02/02/2022 : Stable. Controlled . Asymptomat ic. Continue current medication regimen. 01/01/2022 : Asymptomat ic. Stable. Controlled . Continue current medication regimen. Maintain low-sodium diet. 09/22/21 Continue current antihypert ensive medication regimen Multiple n odules of lung 343382793 R91.8 02/02/2022 : Recently seen by pulmonolog [...] CTs annually. Disorder o f lipid metabolism 788737979 E78.9 02/02/2022 : Remains asymptomat ic. Lipid panel reviewed. Well-contr olled at goal. Continue current medication regimen. 01/01/2022 : Asymptomat ic. No red flag symptoms. Continue current regimen. Recheck lipid panel. 09/22/21 Not currently on statin therapy. Continue to control with diet and exercise Chronic ki dney disease stage 3 558465761 N18.31 02/02/2022 : Improved. EGFR now at 58. Patient is advised to stay well-hydra ivonne and avoid nephrotoxi ns. 01/01/2022 : Stable. Stay well-hydra ivonne. Avoid nephrotoxi ns. CMP. 09/22/21 Stable. Continue to monitor with interval labs Chronic ob structive pulmonary disease 30369614 J44.9 02/02/2022 : Stable. Recently seen by pulmonolog y. No changes. Doing well overall. Follow-up with pulmonolog y as scheduled, will follow along. 01/01/2022 : Mildly worsening dyspnea on exertion since returning recently from [facility]. Patient has upcoming appointmen t with pulmonolog y in a few weeks. In the meantime, patient's Proventil is refilled. 09/22/21 Stable at this time. Continue to follow with Dr. Rodriguez with pulmonolog y Body mass index 30+ - obesity 883337595 Z68.30 09/22/21 continue to work on weight reduction Advance care planning 71 9038769 Z71.89 has plan/dnr Epigastric pain 35678056 R10.13 02/02/2022 : New onset. Patient notes that she is experience d this for over 20 years . No associatio n with food or lying down. This can be seen in the clinic setting of esophageal spasm. Stop famotidine . Follow-up in 28 days. [id number] Rajiv Red MD OFFICE [address] [facility] [address] [place] [address] 02/17/2022 15:21:41 02/17/2022 15:52:45 Disorder of vitamin B12 304540978 E53.8 05/28/21 continue supplement ation Patient continue with B12 injections . She is doing well at this time. Continue with the regimen. [id number] LIAM CARBALLO OFFICE [address] [place] [address] [address] [place] [address] 03/02/2022 11:08:37 03/02/2022 12:15:43 Essential hypertension 53564581 I10 03/02/2022 : Well-contr olled stable. At goal. Continue current medication regimen. Maintain low-sodium diet. 02/02/2022 : Stable. Controlled . Asymptomat ic. Continue current medication regimen. 01/01/2022 : Asymptomat ic. Stable. Controlled . Continue current medication regimen. Maintain low-sodium diet. 09/22/21 Continue current antihypert ensive medication regimen Multiple n odules of lung 808449755 R91.8 02/02/2022 : Recently seen by pulmonolog [...] CTs annually. Disorder o f lipid metabolism 540846204 E78.9 02/02/2022 : Remains asymptomat ic. Lipid panel reviewed. Well-contr olled at goal. Continue current medication regimen. 01/01/2022 : Asymptomat ic. No red flag symptoms. Continue current regimen. Recheck lipid panel. 09/22/21 Not currently on statin therapy. Continue to control with diet and exercise Chronic ki dney disease stage 3 349753790 N18.31 03/02/2022 : CMP reviewed. EGFR 57. [...] interval labs Chronic ob structive pulmonary disease 79970891 J44.9 03/02/2022 : All stable at today's visit. No recent acute exacerbati on. Followed by pulmonolog y. 02/02/2022 : Stable. Recently seen by pulmonolog y. No changes. Doing well overall. Follow-up with pulmonolog y as scheduled, will follow along. 01/01/2022 : Mildly worsening dyspnea on exertion since returning recently from [facility]. Patient has upcoming appointmen t with pulmonolog y in a few weeks. In the meantime, patient's Proventil is refilled. 09/22/21 Stable at this time. Continue to follow with Dr. Rodriguez with pulmonolog y Body mass index 30+ - obesity 225618959 Z68.30 03/02/2022 : Patient will benefit by eating more fruits and vegetables , fish and poultry; while strictly limiting intake of carbohydra starr, fried foods, fatty foods, sugary foods, and red meats. Patient will benefit from exercise for a minimum of 30 minutes/da y, for at least 3 days/week. 09/22/21 continue to work on weight reduction Advance care planning 71 4123495 Z71.89 has plan/dnr Epigastric pain 45875862 R10.13 03/02/2022 : Resolved with famotidine . Continue current medication regimen. Avoid triggers. 02/02/2022 : New onset. Patient notes that she is experience d this for over 20 years . No associatio n with food or lying down. This can be seen in the clinic setting of esophageal spasm. Stop famotidine . Follow-up in 28 days. Disorder o f vitamin B12 530187641 E53.8 Venous varices 222920860 I83.92 03/02/2022 : Patient recently seen by [...] surgery at this time. Cyst of kidney 704186333 N28.1 Osteoarthr itis of left knee joint 6931156144 00536 M17.12 03/02/2022 : Patient reports longstandi ng bilateral knee pain. He asks about hyaluronic acid injections . Long discussion about the types of osteoarthr itis and the grading. We will get radiologic al imaging to make further assessment recommenda tions. Osteoarthr itis of right knee joint 9957971125 94101 M17.11 03/02/2022 : Patient reports longstandi ng bilateral knee pain. He asks about hyaluronic acid injections . Long discussion about the types of osteoarthr itis and the grading. We will get radiologic al imaging to make further assessment recommenda tions. [id number] Rajiv Red MD OFFICE [address] [facility] [address] [place] [address] 03/22/2022 13:32:44 03/22/2022 13:50:48 Serum vitamin B12 below reference range 015146305 R79.89 [id number] Rajiv Red MD OFFICE [address] [facility] [address] [place] [address] 05/27/2022 14:28:42 05/27/2022 15:25:27 Chronic obstructive pulmonary disease 63422743 J44.9 05/27/22 stable inhalers good result dr rodriguez follows ct pulm no issues utd 05/28/21 Stable at this time. Continue to follow with Dr. Rodriguez with pulmonolog y Essential hypertension 20199884 I10 05/27/22 weight down several pounds bp good 05/28/21 Blood pressure stable today with a reading of 128/70. Disorder o f vitamin B12 886001009 E53.8 05/27/22 today b12 05/28/21 continue supplement ation Patient continue with B12 injections . She is doing well at this time. Continue with the regimen. Venous varices 529185773 I83.92 05/27/22 stable no issues 05/28/21 Continues to follow with Dr. Melo for monitoring 03/02/21 saw vascular surgery on 01/12/2021 for venous varices they recommende d conservati ve therapy at this time. Patient will keep legs elevated and wear compressio n stockings at this time. She will continue to follow with vascular surgery at this time. Body mass index 30+ - obesity 840785020 Z68.30 05/28/21 continue to work on weight reduction Cyst of kidney 348462405 N28.1 05/27/22 leeroy appt pending per patient 05/28/21 continues to follow with Dr. Feliz from urology who monitors it. She also informs me that she has an appointmen t coming up with him at the beginning of June. Disorder o f lipid metabolism 169866646 E78.9 05/27/22 labs noted young 87 05/28/21 Not currently on statin therapy. Continue to control with diet and exercise Chronic ki dney disease stage 3 049232064 N18.31 05/27/22 stable gfr good 05/28/21 stable. continue to monitor with interval labs Multiple n odules of lung 279783155 R91.8 05/27/22 pulm 05/28/21 continue to follow with Dr. Rodriguez with pulmonolog y for monitoring 03/02/21 saw pulmonolog y on 01/26/2021 . Patient has a history of lung nodules and recent chest CT showed no changes to the nodules at this time. She will continue to follow with pulmonolog y and will continue to have chest CTs annually. Advance care planning 71 5449563 Z71.89 has plan/dnr Epigastric pain 73367053 R10.13 05/27/22 02/02/2022 : New onset. Patient notes that she is experience d this for over 20 years . No associatio n with food or lying down. This can be seen in the clinic setting of esophageal spasm. Stop famotidine . Follow-up in 28 days. Osteoarthr itis of left knee joint 5383008700 17430 M17.12 05/27/22 nsaid ortho 03/02/2022 : Patient reports longstandi ng bilateral knee pain. He asks about hyaluronic acid injections . Long discussion about the types of osteoarthr itis and the grading. We will get radiologic al imaging to make further assessment recommenda tions. Osteoarthr itis of right knee joint 5803377328 35863 M17.11 05/27/22 ortho 03/02/2022 : Patient reports longstandi ng bilateral knee pain. He asks about hyaluronic acid injections . Long discussion about the types of osteoarthr itis and the grading. We will get radiologic al imaging to make further assessment recommenda tions. Serum vijaya min B12 below reference range 112428351 R79.89 lot [id number] exp 10/2023 right deltoid , clinic provide , 05/27/2022 mm 3:23PM [facility] [id number] Rajiv Red MD OFFICE [address] [facility] [address] [place] [address] 06/10/2022 13:21:04 06/10/2022 14:55:04 Chronic obstructive pulmonary disease 60956255 J44.9 06/10/22 05/27/22 stable inhalers good result dr rodriguez follows ct pulm no issues utd 05/28/21 Stable at this time. Continue to follow with Dr. Rodriguez with pulmonolog y Essential hypertension 48936810 I10 06/10/22 05/27/22 weight down several pounds bp good 05/28/21 Blood pressure stable today with a reading of 128/70. Disorder o f vitamin B12 004734309 E53.8 06/10/22 05/27/22 today b12 05/28/21 continue supplement ation Patient continue with B12 injections . She is doing well at this time. Continue with the regimen. Venous varices 723143673 I83.92 05/27/22 stable no issues 05/28/21 Continues to follow with Dr. Melo for monitoring 03/02/21 saw vascular surgery on 01/12/2021 for venous varices they recommende d conservati ve therapy at this time. Patient will keep legs elevated and wear compressio n stockings at this time. She will continue to follow with vascular surgery at this time. Body mass index 30+ - obesity 421266154 Z68.30 06/10/22 05/28/21 continue to work on weight reduction Cyst of kidney 566943625 N28.1 06/10/22 05/27/22 leeroy appt pending per patient 05/28/21 continues to follow with Dr. Feliz from urology who monitors it. She also informs me that she has an appointmen t coming up with him at the beginning of June. Disorder o f lipid metabolism 657968319 E78.9 06/10/22 05/27/22 labs noted young 87 05/28/21 Not currently on statin therapy. Continue to control with diet and exercise Chronic ki dney disease stage 3 742402304 N18.31 06/10/22 05/27/22 stable gfr good 05/28/21 stable. continue to monitor with interval labs Multiple n odules of lung 355017321 R91.8 06/10/22 05/27/22 pulm 05/28/21 continue to follow with Dr. Rodriguez with pulmonolog y for monitoring 03/02/21 saw pulmonolog y on 01/26/2021 . Patient has a history of lung nodules and recent chest CT showed no changes to the nodules at this time. She will continue to follow with pulmonolog y and will continue to have chest CTs annually. Advance care planning 71 3758592 Z71.89 has plan/dnr Epigastric pain 81678958 R10.13 06/10/22 02/02/2022 : New onset. Patient notes that she is experience d this for over 20 years . No associatio n with food or lying down. This can be seen in the clinic setting of esophageal spasm. Stop famotidine . Follow-up in 28 days. Osteoarthr itis of left knee joint 9547278128 27539 M17.12 06/10/22 05/27/22 nsaid ortho 03/02/2022 : Patient reports longstandi ng bilateral knee pain. He asks about hyaluronic acid injections . Long discussion about the types of osteoarthr itis and the grading. We will get radiologic al imaging to make further assessment recommenda tions. Osteoarthr itis of right knee joint 5869088277 50030 M17.11 06/10/22 05/27/22 ortho 03/02/2022 : Patient reports longstandi ng bilateral knee pain. He asks about hyaluronic acid injections . Long discussion about the types of osteoarthr itis and the grading. We will get radiologic al imaging to make further assessment recommenda tions. Serum vijaya min B12 below reference range 140777509 R79.89 lot [id number] exp 10/2023 right deltoid , clinic provide , 05/27/2022 mm 3:23PM [employer] Diabetes m ellitus screening 619762276 Z13.1 Geriatric screening status 340219779 Z13.9 Pneumonia 951496255 J18. 9 Acute hypo xemic respiratory failure [id number] Rajiv Red MD OFFICE [id number] [place] [address] [address] [place] [phone] 06/25/2022 10:24:27 06/25/2022 10:35:31 Disorder of vitamin B12 [id number] E53.8 06/25/22 06/10/22 05/27/22 today b12 05/28/21 continue supplement ation Patient continue with B12 injections . She is doing well at this time. Continue with the regimen. Health Concerns Section Related Observation LastModified by Organization Detai ls LastModified Time None Recorded Concern Status LastModified by Organization Details LastModified Time None Recorded Advance Directives Directive Y: Payers Insurance Date Sequence Insurance Name Policy Number Policy Azul Covered Member ID Azul Member ID Guarantor Name 03/18/2022 1 [employer] (MEDICARE REPLACEMENT/A DVANTAGE - PPO) Gilda Coloradoser [id number] Gilda Scheehser 04/01/2020 1 [place] F (MEDICARE SUPPLEMENT) [id number] [place] Scheehser [id number] [place] Scheehser 04/01/2020 1 [place] Gilda A Scherobertser [id number] [place] Scherobertser 02/22/2020 2 [facility] [place] (PPO) [id number] Gilda Coloradoser [id number] Gilda Scheehser 07/23/2022 1 [facility] (MEDICARE REPLACEMENT/A DVANTAGE - PPO) [id number] Gilda Coloradoser [id number] Gilda Angelehser 05/25/2022 1 [facility] (MEDICARE REPLACEMENT/A DVANTAGE - HMO) [id number] Gilda Coloradoser [id number] Gilda Scheehser 03/27/2021 1 [facility] (MEDICARE REPLACEMENT/A DVANTAGE - PPO) [id number] Gilda Coloradoser [id number] Gilda Chan Notes Date Note Type Note Provider Name [...] are stable for the patient. LIAM CARBALLO [id number] [facility] [address], [place], [address], [facility], [facility] 03/02/2022 12:39:07 3 text/html here for annualsees dr chada for lungs no sx on triple therapy---neb machine at [facility] cp no cough no sobmamm yearlyon meds for RA on hydroxychlorquine dr susi austin abd pain SANJEEV BILL [place], [place] - [facility], [facility] 07/29/2022 09:33:51 3 text/html discharge 06/09/22admitted for exacerbation of copd with then pneumonia bilateral hypoxiarecords notedlabs okno cp some sob today not newon prednisone taper dc doxy cefdinirhere with daughter from [facility] with dr hanna on meds [place] [address] [facility] [address], [place], [address], [facility] - [facility], [facility] 06/10/2022 15:47:31 3 text/html discharge 06/09/22admitted for exacerbation of copd with then pneumonia bilateral hypoxiarecords notedlabs okno cp some sob today not newon prednisone taper dc doxy cefdinirhere with daughter from [facility] with dr hanna on meds for [place] [address], [place], [address], [facility], [facility] 06/25/2022 12:47:18 OBGyn Episode No OBEpisode recorded.
--- OUTSIDE RECORDS SUMMARY | 2024-07-24 15:59 | XMS_ITS ---
Author Organization [facility] mobli Address [address] [place] [address] Care Team Providers Care Hide Worker Name Role Phone Hernandez CERVANTES Brenton Primary Care Provider [phone] REASON FOR VISIT Medication refill Medications Medication SIG (Take, Route, Frequency, Duration) Notes Start Date End Date Status Olmesartan Medoxomil 20 MG 0.5 tablet Orally once daily for 100 days 1/2 tablet 07/16/2022 Active Metoprolol Succinate 25 mg 0.5 tablets po daily for 100 days 1/2 tab qd Active Encounters Encounter Location Date Provider Diagnosis [address] [place], [place] [id number] 05/09/2024 Paulo Ng Essential (primary) hypertension I10 Assessments Encounter Date Diagnosis (ICD Code) Assessment Notes Treat ment Notes Treatment Clinical Notes 05/09/2024 Essential (primary) hypertension (ICD-10 - I10) [facility]-[id number]- Plan Of Treatment Medication Medication Name Sig Start Date Stop Date Notes Olmesartan Medoxomil 20 MG 0.5 tablet Or ally once daily for 100 days 07/16/2022 1/2 tablet Metoprolol Succinate 25 mg 0.5 tablets p o daily for 100 days 12 tab qd Progress Notes * Gilda CHAN ADOB:1935 (89 yo F)Acc No.[id number]:05/09/2024 Patient:?Gilda CHAN :1935???Age:89 Y???Sex:Female Address:[address] [address], [place] [address] * Refills? Refill Olmesartan Medoxomil Tablet, 20 MG, Orally, 50 Tablet, 0.5 tablet, once daily, 100 days, Refills=3 Refill Metoprolol Succinate tablet, 25 mg, po, 50 Tablet, 0.5 tablets, daily, 100 days, Refills=3 * true * Date:? Generated for Phani elkins/Marcus/eTyanirasmitting on:?07/24/2024 02:59 PM CDT
--- OUTSIDE RECORDS SUMMARY | 2024-07-24 15:59 | XMS_ITS | Clinical Summary ---
Author Organization [facility] Address [address] [place] [address] Care Team Providers Care Bean Snipper Name Role Phone Unavailable Primary Care Provider Unavailabl e Allergies Active Allergy Reactions Criticality Noted Date Comments Latex Rash/Dermatitis Low 05/22/2024 Sulfa Antibiotics Rash/Dermatitis Medium 05/22/2024 Medications albuterol (PROVENTIL) (0.083%) 2.5 mg/3 mL nebulizer solution USE 1 AMPLE IN NEBULIZER EVERY 6 HOURS NEEDED FOR WHEEZING/SHORT NESS OF BREATH 4 Active Eliquis 2.5 MG tablet 1 tablet by Mouth/Oral Cavity route every 12 hours. 5 Active Eliquis 5 MG tablet TAKE 2 TABLETS BY MOUTH TWO TIMES A DAY FOR 7 DAYS (05/17 THROUGH 05/24) FOLLOWED BY 1 TABLET BY MOUTH TWO TIMES A DAY FOR 23 DAYS. 5 Active cephalexin (KEFTAB) 500 MG tablet 5 Active doxycycline (VIBRA-TABS) 100 MG tablet 1 tablet by Mouth/Oral Cavity route every 12 hours. 5 Active Trelegy Ellipta 200-62.5-25 MCG/ACT inhaler 5 Active guaiFENesin-cod eine (ROBITUSSIN AC) liquid TAKE 10 ML BY MOUTH EVERY 4 HOURS NEEDED FOR COUGH 5 Active predniSONE (DELTASONE) 50 MG tablet TAKE 1 TABLET BY MOUTH EVERY DAY FOR 2 DAYS (05/18 & 05/19) THEN RESUME HOME DOSE 5 MG EVERY DAY. 5 Active Encounters Date Type Department Care Team Description 06/08/2024 Orders Only [facility] Scan Special Procedures Technologist [place] [address] [place] [address] Davion Fraga MD 06/04/2024 Orders Only [facility] Scan Special Procedures Technologist [place] [address] [place] [phone] Hammad Rayo MD Uterine mass (Primary Dx) 05/24/2024 Orders Only [facility] Scan Special Procedures Technologist [place] [address] [place] [phone] Davion Fraga MD 05/22/2024 3:30 PM EDT Office Visit [facility] Scan Special Procedures Technologist [place] [address] [place] [phone] Hammad Rayo MD Pelvic mass (Primary Dx) from Last 3 Months Social History Tobacco Use Types Packs/Day Years Used Date Smoking Tobacco: Never Assessed Comments Unknown Sex and Gender Information Value Date Recorded Sex Assigned at Female 05/22/2024 9:09 AM EDT Legal Sex Female 9:01 AM EDT Gender Identity Female 05/22/2024 9:09 [...] Patients (1 - 1-dose 75+ series) 2010 COVID-19 Vaccine (2 - season) 2023 10/10/2020 Influenza Vaccine 10/12/2024 12/22/2021, , 01/28/2021, Additional history exists Hepatitis B Vaccines Aged Out No long er eligible based on patient's age to complete this topic Procedures Procedure Name Priority Date/Time Associated Diagnosis Comments AMB REFERRAL TO GYNECOLOGIC ONCOLOGY Routine 06/08/2024 2:[address] ABD AND PELVIS WITHOUT CONTRAST Routine 05/24/2024 2:26 PM EDT from Last 3 Months Results * Amb Referral to Gynecologic Oncology (06/08/2024 2:57 PM EDT) us External Provider MD OUTPATIENT REFERRAL ORDERAB LES Final Result * CT ABD AND PELVIS WITHOUT CONTRAST (05/24/2024 2:26 PM EDT) Anatomical Region Laterality Modality Other us External Provider IMG LEGACY PROCEDURES Final Result from Last 3 Months Insurance HU[employer]NA MGD MEDICARE
--- OUTSIDE RECORDS SUMMARY | 2024-07-24 15:59 | XMS_ITS | Continuity of Care Document ---
Author Organization [facility] Address [address] [place] [phone] Phone Care Team Providers Care Mine Deputy Name Role Phone Mesfin Stuart NP Unavailable [...] Provider Providers Copied on Encounter Demarc[facility] WHEELER, [address] [place] [address], [id number], tel:[phone] Main Office No Information 5 Sade Toure. [address] [place] [address], [id number] , . tel: [phone] [facility] WHEELER, [address] [place] [address], [id number], tel:[phone] Main Office Rheumatoid Arthritis (chief complaint) Rheumatoid arthritis with rheumatoid factor of multiple sites without organ or systems involvementChroni c fatigue, unspecifiedLong term (current) use of antimetabolite agentLong term use of immunosuppressant Immunodeficiency due to drugsEncounter for therapeutic drug level monitoringVenous insufficiency of lower extemity 4 Sade Toure. [address], [id number] , . tel: [phone] Demarcus WHEELER, [address] [place] [address], [id number], [place] tel:[phone] [facility] Immunodeficiency due to drugsLong term (current) use of antimetabolite agentRheumatoid arthritis with rheumatoid factor of multiple sites without organ or systems involvementEncoun ter for therapeutic drug level monitoring 4 Sade Toure. [address], [id number] , . tel: [phone] Demarcus WHEELER, [address] [place] [address], [id number], [place] tel:[phone] [facility] Inflammatory polyarthropathyRh eumatoid arthritis with rheumatoid factor of multiple sites without organ or systems involvementLong term (current) use of antimetabolite agentImmunodefici ency due to drugs 3 Sade Toure. [address], [id number] , . tel: [phone] Demarcus WHEELER, [address] [place] [address], [id number], [place] tel:[phone] [facility] No Information 3 Sade Toure. [address], [id number] , [place]. tel: [phone] Demarcus WHEELER, [address] [place] [address], [id number], tel:[phone] [facility] Chronic fatigue, unspecifiedEncoun ter for therapeutic drug level monitoringImmunod eficiency due to drugsRheumatoid arthritis with rheumatoid factor of multiple sites without organ or systems involvement 3 Sade Toure. [facility] [address], [id number] , . 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 [address] [place] [address], [id number] , [place]. 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 [address] [place] [address], [id number] , [place]. tel: [phone] Demarcus WHEELER, [address] [place] [address], [id number], tel:[phone] [facility] No Information 3 Sade Toure. [address] [place] [address], [id number] , [place]. tel: [phone] Demarcus WHEELER, [address] [place] [address], [id number], tel:[phone] [facility] No Information 2 Sade Toure. [facility] [address], [id number] , [place]. tel: [phone] Demarcus WHEELER, [address] [place] [address], [id number], tel:[phone] Main Office Pain in unspecified jointRheumatoid arthritis with rheumatoid factor of multiple sites without organ or systems involvementInflam matory polyarthropathyOt her shelter (current) drug therapy 2 Sade Toure. [address], [id number] , . tel: [phone] Demarcus WHEELER, [address], [id number], tel:[phone] Main Office Pain in unspecified jointPain in right kneeInflammatory polyarthropathyLo ng term (current) use of systemic steroids 2 Sade Toure. [address], [id number] , . tel: [phone] Demarcus WHEELER, [address], [id number], tel:[phone] [facility] No Information 9 Sade Toure. [address], [id number] , . tel: [phone] Family History Family Member Type Diagnosis Age At Onset Mother Problem (finding) Rheumatological or Auto immune disease Father Problem (finding) Rheumatological or Auto immune disease Payers Payer name Insurance type Covered republican ID Authoriza tion(s) No Information Social History [...]
--- OUTSIDE RECORDS SUMMARY | 2024-07-24 16:00 | XMS_ITS | Patient Health Record ---
Author Organization [facility] Address [address] [place] [address] Care Team Providers Care Explosive Operator Fuse Name Role Phone Hernandez CERVANTES, [place] Primary Care Provider lAan Villanueva DO Unavailable [phone] Serena Hackett DO Unavailable [phone] Allergies Allergen (clinical drug ingredient) Drug/Non Drug [...] date:04/28/2024 01:46:24 PM Interpretation: Performing Lab:[facility], [address] [place] [id number], Phone - [phone], Director - Shalom Notes/Report: WBC 6.9 3.4-10.8 [...] 01:46:25 PM Interpretation: Performing Lab:[facility], [address], [place] [id number], Phone - [phone], Director - MDJodry Notes/Report: Cholesterol, Total 125 100-199 mg/dL Triglycerides 92 0-149 mg/dL HDL Cholesterol 52 >39 mg/dL VLDL Cholesterol Ayo 17 5-40 mg/dL LDL Chol Calc ([facility]) 56 0-99 mg/dL T. Chol/HDL Ratio 2.4 0.0-4.4 ratio T. Chol/HDL Ratio Men Women 1/2 Avg.Risk 3.4 3.3 Avg.Risk 5.0 4.4 2X Avg.Risk 9.6 7.1 3X Avg.Risk 23.4 11.0 Comprehensive Metabolic Pane l 14 (CMP) Reviewed date:04/28/2024 01:46:25 PM Interpretation: Performing Lab:[facility], [address], [place] [id number], Phone - [phone], Director - MDJodry Notes/Report: Glucose 67 70-99 [...] 0-40 IU/L ALT (SGPT) 24 0-32 IU/L Comprehensive Metabolic Pane l 14 (CMP) Reviewed date:06/20/2024 07:19:39 AM Interpretation: Performing Lab:[facility], [address], [place] [id number], Phone - [phone], Director - MDJodry Notes/Report: Glucose 104 70-99 mg/dL BUN 23 8-27 mg/dL Creatinine 1.35 0.57-1.00 mg/dL eGFR 38 >59 mL/min/1.73 BUN/Creatinine Ratio 17 12-28 Sodium 138 134-144 mmol/L Potassium 5.4 3.5-5.2 mmol/L Chloride 100 96-106 mmol/L Carbon Dioxide, Total 26 20-29 mmol/L Calcium 9.9 8.7-10.3 mg/dL Protein, Total 6.5 6.0-8.5 g/dL Albumin 4.2 3.7-4.7 g/dL Globulin, Total 2.3 1.5-4.5 g/dL Bilirubin, Total 0.3 0.0-1.2 mg/dL Alkaline Phosphatase 64 44-121 IU/L AST (SGOT) 23 0-40 IU/L ALT (SGPT) 16 0-32 IU/L Complete Blood Count With Di fferential With Reflex to Smear Review (CBC) Reviewed date:06/20/2024 07:19:39 AM Interpretation: Performing Lab:[facility], [address], [place] [id number], Phone - [phone], Director - MDJodry Notes/Report: WBC 6.1 3.4-10.8 x10E3/uL RBC 3.67 3.77-5.28 x10E6/uL Hemoglobin 10.5 11.1-15.9 g/dL Hematocrit 33.2 34.0-46.6 % MCV 91 79-97 fL MCH 28.6 26.6-33.0 pg MCHC 31.6 31.5-35.7 g/dL RDW 13.2 11.7-15.4 % Platelets 247 150-450 x10E3/uL Neutrophils 76 Not Estab. % Lymphs 11 Not Estab. % Monocytes 10 Not Estab. % Eos 2 Not Estab. % Basos 1 Not Estab. % Neutrophils (Absolute) 4.7 1.4-7.0 x10E3/uL Lymphs (Absolute) 0.7 0.7-3.1 x10E3/uL Monocytes(Absolute) 0.6 0.1-0.9 x10E3/uL Eos (Absolute) 0.1 0.0-0.4 x10E3/uL Baso (Absolute) 0.0 0.0-0.2 x10E3/uL Immature Granulocytes 0 Not Estab. % Immature Grans (Abs) 0.0 0.0-0.1 x10E3/uL Lipid Panel With Total Rayne sterol/HDL Ratio Reviewed date:06/20/2024 07:19:39 AM Interpretation: Performing Lab:[facility], [address] [place] [id number], Phone - [phone], Director - Shalom Notes/Report: Cholesterol, Total 131 100-199 mg/dL Triglycerides 134 0-149 mg/dL HDL Cholesterol 51 >39 mg/dL VLDL Cholesterol Ayo 23 5-40 mg/dL LDL Chol Calc ([facility]) 57 0-99 mg/dL T. Chol/HDL Ratio 2.6 0.0-4.4 ratio T. Chol/HDL Ratio Men Women 1/2 Avg.Risk 3.4 3.3 Avg.Risk 5.0 4.4 2X Avg.Risk 9.6 7.1 3X Avg.Risk 23.4 11.0 Reason For Referral No Information Medications Medication SIG (Take, Route, Frequency, Duration) Notes Start Date End Date Status Tumeric Curcumin 500mg 1 tablet orally once a day Active Albuterol Sulfate HFA 108 (90 Base) MCG/ACT 1 puff as needed Inhalation every 4 hrs for 90 days 01/09/2024 Active Trelegy Ellipta 200-62.5-25 MCG/ACT 1 puff Inhalation Once a day Active Folic Acid 1 MG 1 tablet Orally Once a day for 90 days 01/19/2023 Active predniSONE 5 MG 1 tablet Orally Once a day Active rOPINIRole HCl 0.25 MG 1 tablet Orally twice a day for 90 days as directed bid po Active Olmesartan Medoxomil 20 MG 0.5 tablet Or ally once daily for 100 days 2 tablet 07/16/2022 Active Metoprolol Succinate 25 mg 0.5 tablets p o daily for 100 days 12 tab qd Active Ipratropium-Albuterol 0.5-2.5 (3) MG/3ML 3 mL as needed Inhalation every 6 hrs Active predniSONE 10 MG (21) 1 tablet Orally Once a day Not-Taking Vitamin D (Ergocalciferol) 1.25 MG (20339 UT) 1 capsule Orally weekly for 90 days 06/24/2023 Active Albuterol Sulfate (2.5 MG/3ML) 0.083% 3 mL as needed Inhalation every 6 hrs 0.5mg/ml Active Cyanocobalamin 1000 MCG/ML 1 mL Injectio n Monthly for 180 days Active Vasculera - as directed Orally 630mg once daily Active Tylenol PRN Active BD Integra Syringe 25G X 5/8 3 ML as directed for 90 days USE DIRECTED prn Active Hydroxychloroquine Sulfate 300 MG Take 1.5 tablets Orally once a day for 90 days 09/07/2023 Active Immunizations Vaccine Route Administration Date Status [...] Status W/U Status Risk Notes Problem Leukopenia (12911759) Decreased white blood cell count, unspecified (D72.819) 019 Active confirmed Ricky-162 1144- Problem Drug-induced adrenocortical insufficiency (674650022) 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) Active confirmed Problem Vitamin B deficiency (10721052) Deficiency of other specified B group vitamins (E53.8) Active confirmed Ricky-162 1144- Problem Vitamin D deficiency (30519877) Vitamin D deficiency, unspecified (E55.9) Active confirmed Ricky-162 1144- Problem Tobacco user (611032504) Nicotine dependence, other tobacco product, uncomplicated (F17.290) Active confirmed Ricky-162 1144- Problem Adjustment disorder (68486697) Adjustment disorder, unspecified (F43.20) Active confirmed Ricky-162 1144- Problem Supraventricular tachycardia (5687915) Supraventricular tachycardia (I47.1) Active confirmed Ricky-162 1144- Problem Chronic obstructive pulmonary disease (16946930) Chronic obstructive pulmonary disease, unspecified (J44.9) Active confirmed Ricky-162 1144- Problem Fatty liver (735867948) Fatty (change of) liver, not elsewhere classified (K76.0) Active confirmed Ricky-162 1144- Problem Rheumatoid arthritis (44846549) Rheumatoid arthritis, unspecified (M06.9) Active confirmed Ricky-162 1144- Problem 523069156 Mild anemia (D64.9) Active confirmed Problem Bone density finding (877868225) Oth disrd of bone density and structure, unspecified site (M85.80) Active confirmed Ricky-162 1144- Problem Chronic kidney disease stage 3 (disorder) (304329836) Chronic kidney disease, stage 3 (moderate) (N18.3) Active confirmed Ricky-162 1144- Problem Fatigue (71238177) Other fatigue (R53.83) Active confirmed Ricky-162 1144- Problem Essential hypertension (32521056) Essential (primary) hypertension (I10) Active confirmed Ricky-162 1144- Problem Uncomplicated asthma (disorder) (719052172) Unspecified asthma, uncomplicated (J45.909) Active confirmed Ricky-162 1144- Problem Long-term current use of drug therapy (131199117) Other senior care (current) drug therapy (Z79.899) 12/01/2 017 Active confirmed Ricky-162 1144- Problem 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) (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 Problem Pulmonary hypertension (16609066) Pulmonary hypertension, unspecified (I27.20) 018 Active confirmed Ricky-162 1144- Problem Immunodeficiency disorder (disorder) (690410075) 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 confirmed Problem Drug-induced immunodeficiency (disorder) (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 Problem Chronic kidney disease stage 3A (disorder) (101323602) Chronic kidney disease, stage 3a (N18.31) 020 Active confirmed Ricky-162 1144- Problem Rheumatoid arthritis (83165960) Rheumatoid arthritis, involving unspecified site, unspecified whether rheumatoid factor present (M06.9) Active confirmed Problem Chronic kidney disease stage 3B (disorder) (019262560) Stage 3b chronic kidney disease (CKD) (N18.32) Active confirmed Vital Signs Respiratory Rate 16 /min 11/23/2023 BP was [...] Lulu Lyon 02/28/2024 09:32:49 AM EST > Encounters Encounter Location Date Provider Diagnosis [address] [place], [place] [id number] 08/18/2023 Serena Hackett Essential (primary) hypertension I10 [facility] [address] [place], [place] [id number] 08/22/2023 Alan Villanueva Vitamin D deficiency , unspecified E55.9 [facility] [address] [place], [place] [id number] 09/07/2023 Serena Wilsonhison [facility] [address] [place], [place] [id number] 09/22/2023 Serena Reyezon [facility] [address] [place], [place] [id number] 10/19/2023 Paulo Palmerk [facility] [address] [place], [place] [id number] 10/25/2023 Pauloana Ng Rheumatoid arthritis , involving unspecified site, unspecified whether rheumatoid factor present M06.9 [facility] [address] [place], [place] [id number] 12/12/2023 Pauloaan Palmerk [facility] [place] [address] [place], [place] [id number] 12/13/2023 Pauloana Palmerk [facility] [place] [address] [place], [place] [id number] 12/27/2023 Paulo Hernandez [facility] [place] [address] [place], [place] [id number] 01/02/2024 Paulo Ng Vitamin D deficiency , unspecified E55.9 [facility] [place] [address] [place], [place] [id number] 03/05/2024 Paulo Hernandez [facility] [place] [address] [place], [place] [id number] 03/15/2024 Paulo Hernandez Rheumatoid arthritis , involving unspecified site, unspecified whether rheumatoid factor present M06.9 [facility] [place] [address] [place], [place] [id number] 03/19/2024 Pauloana Palmerk Chronic obstructive pulmonary disease, unspecified J44.9 [facility] [place] [address] [place], [place] [id number] 05/09/2024 Paulo Ng Essential (primary) hypertension I10 [facility] [address] [place], [place] [id number] 11/23/2023 Pauloana Ng Chronic obstructive pulmonary disease, unspecified J44.9 ; Essential (primary) hypertension I10 ; Rheumatoid arthritis, unspecified M06.9 ; Immunodeficiency due to conditions classified elsewhere D84.81 and Routine adult health maintenance Z00.00 [facility] at [address] [id number] 10/14/2023 Pauloana Ng Chronic obstructive pulmonary disease, unspecified J44.9 ; Rheumatoid arthritis, unspecified M06.9 ; Essential (primary) hypertension I10 ; Immunodeficiency due to conditions classified elsewhere D84.81 and Routine adult health maintenance Z00.00 [facility] [address] [place] [id number] 01/24/2024 Paulo Ng Chronic obstructive pulmonary disease, unspecified J44.9 ; Essential (primary) hypertension I10 ; Rheumatoid arthritis, unspecified M06.9 ; Immunodeficiency due to conditions classified elsewhere D84.81 ; Routine adult health maintenance Z00.00 and Rheumatoid arthritis, involving unspecified site, unspecified whether rheumatoid factor present M06.9 [facility] [address] [place] [id number] 02/28/2024 Paulo Ng Essential (primary) hypertension I10 ; Chronic obstructive pulmonary disease, unspecified J44.9 ; Rheumatoid arthritis, unspecified M06.9 ; Immunodeficiency due to conditions classified elsewhere D84.81 ; Routine adult health maintenance Z00.00 and Rheumatoid arthritis, involving unspecified site, unspecified whether rheumatoid factor present M06.9 [facility] [address] [place], [place] [id number] 04/05/2024 Paulo Ng Chronic obstructive pulmonary disease, unspecified J44.9 ; Essential (primary) hypertension I10 ; Rheumatoid arthritis, unspecified M06.9 ; Immunodeficiency due to conditions classified elsewhere D84.81 ; Routine adult health maintenance Z00.00 ; Rheumatoid arthritis, involving unspecified site, unspecified whether rheumatoid factor present M06.9 and 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 [facility] [address] [place], [place] [id number] 01/09/2024 Paulo Ng Chronic obstructive pulmonary disease, unspecified J44.9 ; Essential (primary) hypertension I10 ; Rheumatoid arthritis, unspecified M06.9 ; Immunodeficiency due to conditions classified elsewhere D84.81 ; Routine adult health maintenance Z00.00 and Rheumatoid arthritis, involving unspecified site, unspecified whether rheumatoid factor present M06.9 [facility] [address] [place], [place] [id number] 08/17/2023 Serena Hackett Essential (primary) hypertension I10 ; Chronic obstructive pulmonary disease, unspecified J44.9 ; Rheumatoid arthritis, unspecified M06.9 ; Immunodeficiency due to conditions classified elsewhere D84.81 and Multifocal pneumonia J18.9 [facility] [address] [place], [place] [id number] 09/14/2023 Serena Hackett Chronic obstructive pulmonary disease, unspecified J44.9 ; Essential (primary) hypertension I10 ; Rheumatoid arthritis, unspecified M06.9 and Immunodeficiency due to conditions classified elsewhere D84.81 Assessments Encounter Date Diagnosis (ICD Code) Assessment Notes Treatment Notes Treatment Clinical Notes 08/17/2023 Chronic obstructive pulmonary disease, unspecified (ICD-10 - J44.9) [facility] [id number] Continue to follow with [facility]. 08/18/2023 Essential (primary) hypertension (ICD-10 - I10) [facility] [id number]- 08/22/2023 Vitamin D deficiency , unspecified (ICD-10 - E55.9) 09/14/2023 Chronic obstructive pulmonary disease, unspecified (ICD-10 - J44.9) [id number]- Continue to follow with [facility]. 10/14/2023 Chronic obstructive pulmonary disease, unspecified (ICD-10 - J44.9) [id number]- Continue to follow with [facility]. 10/25/2023 Rheumatoid arthritis , involving unspecified site, unspecified whether rheumatoid factor present (ICD-10 - M06.9) 11/23/2023 Chronic obstructive pulmonary disease, unspecified (ICD-10 - J44.9) [id number]- Continue to follow with [facility]. 01/02/2024 Vitamin D deficiency , unspecified (ICD-10 - E55.9) 01/09/2024 Chronic obstructive pulmonary disease, unspecified (ICD-10 - J44.9) [id number]- Continue to follow with [facility]. 01/24/2024 Chronic obstructive pulmonary disease, unspecified (ICD-10 - J44.9) [id number]- Continue to follow with [facility]. 03/15/2024 Rheumatoid arthritis , involving unspecified site, unspecified whether rheumatoid factor present (ICD-10 - M06.9) 03/19/2024 Chronic obstructive pulmonary disease, unspecified (ICD-10 - J44.9) [id number]- 04/05/2024 Chronic obstructive pulmonary disease, unspecified (ICD-10 - J44.9) [id number]- Continue to follow with [facility]. 02/27 weaning down on predisone right now doing 05/09/2024 Essential (primary) hypertension (ICD-10 - I10) [id number]- 02/28/2024 Chronic obstructive pulmonary disease, unspecified (ICD-10 - J44.9) [id number]- Continue to follow with [facility]. 02/27 weaning down on predisone right now doing 02/28/2024 Essential (primary) hypertension (ICD-10 - I10) [id number]- Continue medications and home monitoring as directed. Continue low sodium diet with goal of <2g per day. Avoid stress. Avoid adding salt to food. Enjoy regular exercise like walking at least 30 minutes a day, five days a week. 08/17/2023 Essential (primary) hypertension (ICD-10 - I10) [id number]- Continue medications and home monitoring as directed. Continue low sodium diet with goal of <2g per day. Avoid stress. Avoid adding salt to food. Enjoy regular exercise like walking at least 30 minutes a day, five days a week. 08/17/2023 Rheumatoid arthritis , unspecified (ICD-10 - M06.9) [place] app[place] if she can stop the hydroxychloroquine. She is doing really well on the methotrexate. 02/28/2024 Rheumatoid arthritis , unspecified (ICD-10 - M06.9) Rheum discontinued methotrexate due to increasing Cr. Seeing rheum in 2 days to discuss other treatment options. 04/05/2024 Essential (primary) hypertension (ICD-10 - I10) [id number]- Continue medications and home monitoring as directed. Continue low sodium diet with goal of <2g per day. Avoid stress. Avoid adding salt to food. Enjoy regular exercise like walking at least 30 minutes a day, five days a week. 01/24/2024 Essential (primary) hypertension (ICD-10 - I10) [id number]- Continue medications and home monitoring as directed. Continue low sodium diet with goal of <2g per day. Avoid stress. Avoid adding salt to food. Enjoy regular exercise like walking at least 30 minutes a day, five days a week. 01/09/2024 Essential (primary) hypertension (ICD-10 - I10) [id number]- Continue medications and home monitoring as directed. Continue low sodium diet with goal of <2g per day. Avoid stress. Avoid adding salt to food. Enjoy regular exercise like walking at least 30 minutes a day, five days a week. 11/23/2023 Essential (primary) hypertension (ICD-10 - I10) [id number]- Continue medications and home monitoring as directed. Continue low sodium diet with goal of <2g per day. Avoid stress. Avoid adding salt to food. Enjoy regular exercise like walking at least 30 minutes a day, five days a week. 10/14/2023 Essential (primary) hypertension (ICD-10 - I10) [id number]- Continue medications and home monitoring as directed. [...] 09/14/2023 Essential (primary) hypertension (ICD-10 - I10) [facility] [id number]- Continue medications and home monitoring as directed. Continue low sodium diet with goal of <2g per day. Avoid stress. Avoid adding salt to food. Enjoy regular exercise like walking at least 30 minutes a day, five days a week. 09/14/2023 Rheumatoid arthritis , unspecified (ICD-10 - [...] 08/17/2023 Multifocal pneumonia (ICD-10 - J18.9) Resolved 11/23/2023 Routine adult health maintenance (ICD-10 - [...] factor present (ICD-10 - M06.9) 04/05/2024 Other senior care (current) drug therapy (ICD-10 - Z79.899) 01/24/2024 Rheumatoid arthritis , involving unspecified site, unspecified whether rheumatoid factor present (ICD-10 - M06.9) 01/09/2024 Rheumatoid arthritis , involving unspecified site, unspecified whether rheumatoid factor present (ICD-10 - M06.9) 09/14/2023 Other Plan Of Treatment Future Test [...] ith Reflex to Smear Review (CBC) 04/25/2023 Insurance Providers Payer Name Payer Address Payer Phone Subscriber Number Group Number Insured Name Patient Relationship to Insured Coverage Start Date Coverage End Date [id number] [employer] [facility] [address] [address] [place], [place] [id number] Gilda Mari Self - patient is the insured Medications Administered Medication Instructions Date of Administration Dosage Notes Cyanocobalamin 03/18/2023 1 mL cyanocobalamin 04/25/2023 1 mL cyanocobalamin 06/24/2023 1 mL Medical (General) History Surgical History Surgery Date(Month/Year) Colonoscopy In 01/26/2012 Hospitalization History Reason Date(Month/Year) Cough, COPD and pneumonia 05/2022 Multifocal pneumonia 2023
--- OUTSIDE RECORDS SUMMARY | 2024-07-24 16:00 | XMS_ITS ---
Author Organization [facility] Address [address] [place] [address] Care Team Providers Care Rock Mason Name Role Phone Hernandez CERVANTES, Arena Primary Care Provider Allergies Allergen (clinical drug ingredient) Drug/Non Drug Allergy documented on EMR Reaction Allergy Type Onset Date Status Latex Latex Unknown Allergy 03/02/2022 Active Substance with sulfonamide structure and antibacterial mechanism of action (substance) Sulfa Antibiotics Unknown Drug Allergy Active REASON FOR VISIT F/U back from [facility], pt accompanied by , pt did not bring medication bottles Medications Medication SIG (Take, Route, Frequency, Duration) Notes Start Date End Date Status Tumeric Curcumin 500mg 1 tablet orally once a day Active Albuterol Sulfate HFA 108 (90 Base) MCG/ACT 1 puff as needed Inhalation every 4 hrs for 90 days 01/09/2024 Active Vasculera - as directed Orally 630mg once daily Active Tylenol PRN Active BD Integra Syringe 25G X 5/8 3 ML as directed for 90 days USE DIRECTED prn Active Trelegy Ellipta 200-62.5-25 MCG/ACT 1 puff Inhalation Once a day Active Folic Acid 1 MG 1 tablet Orally Once a day for 90 days 01/19/2023 Active predniSONE 5 MG 1 tablet Orally Once a day Active Olmesartan Medoxomil 20 MG 0.5 tablet Or ally once daily for 100 days 1/2 tablet 07/16/2022 Active Metoprolol Succinate 25 mg 0.5 tablets p o daily for 100 days 1/2 tab qd Active rOPINIRole HCl 0.25 MG 1 tablet Orally twice a day for 90 days as directed bid po Active Ipratropium-Albuterol 0.5-2.5 (3) MG/3ML 3 mL as needed Inhalation every 6 hrs Active predniSONE 10 MG (21) 1 tablet Orally Once a day Not-Taking Albuterol Sulfate (2.5 MG/3ML) 0.083% 3 mL as needed Inhalation every 6 hrs 0.5mg/ml Active Hydroxychloroquine Sulfate 300 MG Take 1.5 tablets Orally once a day for 90 days 09/07/2023 Active Vitamin D (Ergocalciferol) 1.25 MG (07450 UT) 1 capsule Orally weekly for 90 days 06/24/2023 Active Cyanocobalamin 1000 MCG/ML 1 mL Injectio n Monthly for 180 days Active Social History Marital status: Question Answer Notes Status: Encounters Encounter Location Date Provider Diagnosis [facility] [address] [facility] [address] [place], [place] [id number] 06/22/2024 Paulo Ng Chronic obstructive pulmonary disease, unspecified J44.9 ; Essential (primary) hypertension I10 ; Rheumatoid arthritis, unspecified M06.9 ; 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 02/27 weaning down on predisone right now doing 06/22/2024 Essential (primary) hypertension (ICD-10 - I10) [facility] [place][id number] Continue medications and home monitoring as directed. Continue low sodium diet with goal of <2g per day. Avoid stress. Avoid adding salt to food. Enjoy regular exercise like walking at least 30 minutes a day, five days a week. 06/22/2024 Rheumatoid arthritis , unspecified (ICD-10 - M06.9) Rheum discontinued methotrexate due to increasing Cr. Seeing rheum in 2 days to discuss other treatment options. 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 06/22/2024 Routine adult health maintenance (ICD-10 - Z00.00) 06/22/2024 Rheumatoid arthritis , involving unspecified site, unspecified whether rheumatoid factor present (ICD-10 - M06.9) 06/22/2024 Other residential (current) drug therapy (ICD-10 - Z79.899) Plan Of Treatment Medication Medication Name Sig Start Date Stop Date Notes Folic Acid 1 MG 1 tablet Orally Once a day for 90 days 01/19/2023 rOPINIRole HCl 0.25 MG 1 tablet Orally t wice a day for 90 days bid po Treatment Notes Assessment Notes Chronic obstructive pulmonar y disease, unspecified Continue to follow with [employer] Associate. 02/27 weaning down on predisone right now [...] cond itions classified elsewhere Due to COPD. Progress Notes * Gilda CHAN ADOB:1935 (89 yo F)Acc No.[id number]:06/22/2024 UNLOCKED PROGRESS NOTE Progress Notes Patient:?Gilda CHAN Provider:?Paulo Ng MD :1935???Age:89 Y???Sex:Female D ate:06/22/2024 Address:[address] [place], [place] [id number] Subjective: * Chief Complaints: * ???1. F/U back from [facility] . 2. Pt accompanied by . 3. pt did not bring medication bottles. * HPI: ???General:? The patient is an 89-year-old female who is here today to follow-up on her chronic medical issues. My first in person visit with her. She did do blood work earlier this year she receives the bulk of her care in [place]. She is otherwise without new concerns today. * ROS:?Complete Review of Systems:?Constitutional:?Denies fever, chills, fatigue, unintentional weight loss.?Cardiovascular:?Denies chest pain, palpitations, lower extremity edema.?Pulmonary:?Denies shortness of breath, cough.?Gastrointestinal:?Denies abdominal pain, nausea, vomiting, diarrhea, constipation.? * Medical History:?Medical His tory Verified. * Surgical History:?Colonoscop y In 01/26/2012 . * Hospitalization/Major Diagno stic Procedure:?Cough, COPD and pneumonia 05/2022, Multifocal pneumonia 2023. * Family History:?Mother: Prim venu malignant neoplasm of pancreas .? * Social History:?Other Social Factors:?Caffeine Intake?Frequency:?1-2 cups per day ?Driving Status?Does the patient drive??yes ?Exercise?Frequency:?other 5 days ?Functional Status?Pt uses ambulatory assisted device(s):?No ?Home detector use?Type of detector(s) used??smoke detectors ?Home Health?Is the patient in a Home Health program??No ?Marital status?Status:?Pets?Do you have any pets??dogs ?Seatbelt Use?Uses seatbelt everytime??Yes * Medications:?Taking Albutero l Sulfate (2.5 MG/3ML) 0.083% Nebulization Solution 3 mL as needed Inhalation every 6 hrs , Notes to Pharmacist: 0.5mg/ml, Taking Albuterol Sulfate HFA 108 (90 Base) MCG/ACT Aerosol Solution 1 puff as needed Inhalation every 4 hrs , Taking BD Integra Syringe 25G X 5/8 3 ML Miscellaneous as directed USE DIRECTED, Notes to Pharmacist: prn, Taking Cyanocobalamin 1000 MCG/ML Solution 1 mL Injection Monthly , Taking Folic Acid 1 MG Tablet 1 tablet Orally Once a day , Taking Hydroxychloroquine Sulfate 300 MG Tablet Take 1.5 tablets Orally once a day , Taking Ipratropium-Albuterol 0.5-2.5 (3) MG/3ML Solution 3 mL as needed Inhalation every 6 hrs , Taking Metoprolol Succinate 25 mg tablet 0.5 tablets po daily , Notes to Pharmacist: 1/2 tab qd, Taking Olmesartan Medoxomil 20 MG Tablet 0.5 tablet Orally once daily , Notes to Pharmacist: /2 tablet, Taking predniSONE 5 MG Tablet 1 tablet Orally Once a day , Taking rOPINIRole HCl 0.25 MG Tablet 1 tablet Orally twice a day as directed, Notes to Pharmacist: bid po, Taking Trelegy Ellipta 200-62.5-25 MCG/ACT Aerosol Powder Breath Activated 1 puff Inhalation Once a day , Taking Tumeric Curcumin 500mg Tablet 1 tablet orally once a day , Taking Tylenol PRN , Taking Vasculera - Tablet as directed Orally 630mg once daily, Taking Vitamin D (Ergocalciferol) 1.25 MG (87525 UT) Capsule 1 capsule Orally weekly , Not-Taking predniSONE 10 MG (21) Tablet Therapy Pack 1 tablet Orally Once a day * Allergies:?Latex: Allergy - Onset Date 03/02/2022, Sulfa Antibiotics: Allergy. * Implants:? Objective: * Vitals:? Past Vitals:* [...] Not Taken - Declined by Patient, Pain Scale:- * 11/23/2023 BP:138/65mm Hg, RR:16/min, P ulse:62/min, Temp: Not Taken - Declined by Patient, Ht:60in, Wt: Not Taken - Declined by Patient, Oxygen Sat:96%, Pain Scale:- * 10/14/2023 BP:sittin/74mm Hg, RR: Not Taken - Declined by Patient, Pulse: Not Taken - Declined by Patient, Temp: Not Taken - Declined by Patient, Ht:60in, Wt: Not Taken - Declined by Patient, Oxygen Sat: Not Taken - Declined by Patient, Pain Scale:- * ???Past Orders: ???Lab:Comprehensive Metabol ic Panel 14 (CMP) (Order Date - 04/05/2024) (Collection Date & Time - 04/27/2024 08:55 AM) ? Value Reference Range ?Bilirubin, Total 0.3 0.0 -1.2 - mg/dL ?Glucose 67 L 70-99 - mg/d L ?ALT (SGPT) 24 0-32 - IU /L ?Alkaline Phosphatase 62 44-121 - IU/L ?Globulin, Total 2.2 1.5- 4.5 - g/dL ?Albumin 3.5 L 3.7-4.7 - g/ dL ?Protein, Total 5.7 L 6.0-8 .5 - g/dL ?Carbon Dioxide, Total 23 20-29 - mmol/L ?Chloride 102 96-106 - mm ol/L ?Potassium 4.2 3.5-5.2 - mmol/L ?Sodium 140 134-144 - mmo l/L ?BUN/Creatinine Ratio 25 12-28 - ?Creatinine 1.25 H 0.57-1.00 - mg/dL ?Calcium 9.0 8.7-10.3 - m g/dL ?BUN 31 H 8-27 - mg/dL ?AST (SGOT) 21 0-40 - IU /L ?eGFR 41 L >59 - mL/min/1. 73 * Examination: ???General Examination: ?Appearance:?well developed, well nourished, in no acute distress?.?Head:?normocephalic, atraumatic.?Eyes:?pupils equal, round, reactive to light and accommodation, sclera non-icteric?.?Oral cavity:?mucosa moist?.?Neck/Thyroid:?neck supple, full range of motion, no cervical lymphadenopathy?.?Skin:?warm and dry, no suspicious lesions?.?Heart:?regular rate and rhythm, S1, S2 normal, no murmurs?.?Lungs:?clear to auscultation bilaterally?.?Abdomen:?soft, nontender, nondistended, bowel sounds present,.?Extremities:?no clubbing, cyanosis, or edema.?Psych:?does not appear depressed,? normal affect..? 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 Plan: * [...] onditions classified elsewhere? Notes: Due to COPD.?? 5.?Rheumatoid arthritis, inv olving unspecified site, unspecified whether rheumatoid factor present? Refill Folic Acid Tablet, 1 MG, 1 tablet, Orally, Once a day, 90 days, 90, Refills 3.?? 6.?Others? Refill rOPINIRole HCl Tablet, 0.25 MG, 1 tablet, Orally, twice a day as directed, 90 days, 180, Refills 0, Notes to Pharmacist: bid po.?? * Preventive Medicine:? ??Handouts :?Patient Handouts:?THE FOLLOWING HANDOUTS WERE PROVIDED:?Visit summary ?THE ABOVE HANDOUTS WERE PROVIDED BY:?Lulu Lyon 06/22/2024 12:16:09 PM EDT >.?HANDOUTS REVIEWED WITH:?patient.?METHOD USED TO DEMONSTRATE UNDERSTANDING: ?verbalized understanding.?UNDERSTANDING OF HANDOUT WAS DEMONSTRATED?Lulu Lyon 06/22/2024 12:16:13 PM EDT >.? * * Electronic signature of Paulo Ng MD, MD on 07/24/2024 at 02:59 PM CDT Sign off status: Pending * Provider:?Paulo Ng MD Date:?06/22 Generated for Jarrelli ng/Faraudelg/eTransmitting on:?07/24/2024 02:59 PM CDT History and Physical Notes * Examination Category Sub-Category Detail Notes General Examination Appearance: well develop ed, well nourished, in no acute distress Head: normocephalic, atrau matic Eyes: pupils equal, round, reactive to light and accommodation, sclera non-icteric Neck/Thyroid: neck supple, full ra nge of motion, no cervical lymphadenopathy Heart: regular rate and rhy thm, S1, S2 normal, no murmurs Lungs: clear to auscultatio n bilaterally Abdomen: soft, nontender, non distended, bowel sounds present, Skin: warm and dry, no aaron picious lesions Extremities: no clubbing, cyanosi s, or edema Psych: does not appear depr essed, normal affect. Oral cavity: mucosa moist
--- OUTSIDE RECORDS SUMMARY | 2024-07-24 16:00 | XMS_ITS | Data Portability ---
Author Organization [facility] [employer] [facility] ician [facility], [facility], [facility] Address [address] [place] [address] Care Team Providers Care Insurance Auditor Name Role Phone EVGENY RODRIGUEZ Primary Care Provider [phone] EVGENY RODRIGUEZ Referring Provider EVGENY RODRIGUEZ Codifier RAJIV CARDONA Primary Care Provider Assessment No assessment recorded. Plan of Treatment Reminders Order Date Submit Date Provider Last Modified By Organization Details Last Modified Time Details Appointments None record ed. Lab None record ed. Referral pulmon ologis t referr al 2023 024 marco [facility], [address], [place], [address], 4 16:11:05 Procedures pulmon venu stress test, simple (PROC) 2021 022 tchadha In-House Test, For Internal Use Only, Do Not Delete/merge, [id number] 2 11:54:35 Surgeries None record ed. Imaging XR, chest, 2 view 2023 024 [facility], [facility], All Locations, [place], [address], 4 19:53:31 CT, chest, w/o contra st 2022 024 [facility] Radiology [facility] ([facility] [address], [address], [place], [address], 4 15:17:30 CT, chest, w/o contra st - PLEASE CALL RAMY Leonardo TO [facility] APPT THANK YOU 2021 023 [facility], [facility], All Locations, [place], [address], 4 10:49:10 US, echoca rdiogr am 2021 022 [facility], [facility], All Locations, [place], [address], 18:14:33 Medication Orders torsem tea 10 [address] tablet [address] [facility] [address], [address], [place], [address], 13:10:13 Patient TargetsNo targets recorded. Patient Instructions Encounter Date Encounter Id Patient Instructions Last Modified By Organization Details Last Modified Time 01/26/2022 [id number] complete PFT w/ post bronchodilator spirometry* JONNATHAN Not available 01/31/2023 08:01:25 Patient understands instructions and will seek medical attention if symptoms worsen as directed. latoya Not available 01/21/2022 16:11:09 06/18/2022 [id number] Patient understands instructions and will seek medical attention if symptoms worsen as directed. [email or web address] Not available 06/10/2022 13:09:06 02/07/2023 [id number] Patient understands instructions and will seek medical attention if symptoms worsen as directed. [email or web address] Not available 02/02/2023 09:01:25 07/08/2023 [id number] pneumonia: care instructions tchadha Not available 07/08/2023 13:10:13 Patient understands instructions and will seek medical attention if symptoms worsen as directed. [email or web address] Not available 07/06/2023 10:35:56 07/19/2023 [id number] Patient understands instructions and will seek medical attention if symptoms worsen as directed. [email or web address] Not available 07/13/2023 10:35:20 Reason for Referral Codifier Referral for C hronic obstructive pulmonary disease [...] For Internal Use Only, Do Not Delete/merge, [id number] 01/14/2022 10:05:52 01/15/2001/14/2022 CT, chest , w/o [...] Gareth Segovia, Homero willson Sign Date: [id number] [facility] All Locations, [place], [address], 02/03/2024 19:42:38 01/26/20 22 01/19/2022 compl ete PFT w/ post [facility] hodil ator ar metry * No observ ation record ed. tchadha Not Available 2021 08:31:12 02/08/20 22 02/03/2022 , echo ardio gram No observ ation record ed. [id number] [facility] All Locations, [place], [address], 02/03/2024 20:31:07 01/22/20 23 01/18/2023 CT, chest [...] Signed By: Rolo Walter Sign Date: [id number] [facility] All Locations, [place], [address], 02/03/2024 19:39:04 02/01/20 23 01/25/2023 compl ete PFT w/ post [facility] hodil ator ar metry * No observ ation record ed. [email or web address] In-House Test For Internal Use Only, Do Not Delete/merge, [id number] 01/31/2023 09:53:43 06/01/19 24 05/24/2023 CT, chest [...] Note: [employer], [facility] and the [place] preven tative [...] Board Certif ied Radiol ogist Sign Date: [facility], avonzita [facility] All Locations, [place], [address], 07/18/2023 20:53:53 Result Notes None recorded. Problems Name Problem SNOMED Code Status Onset Date Resolution Date Notes Provider Name and Address Organization Details Recorded Time Pulmonar y hyperten sarai 91734647 Completed 201707/19/2023 Arnold Paulino Jr [facility], [facility] 4 12:50:37 Rheumato id arthriti s 96025841 Active 2021 ON PREDNISO NE...... [facility] 3 13:08:06 Venous varices 883735692 Completed 201707/19/2023 [facility] 4 12:50:37 Serum creatini ne above referenc e range 107501668 Completed 201807/19/2023 Arnold Paulino Jr [facility], [facility] 4 12:50:37 Steatoti c liver disease 873635708 Completed 202007/19/2023 Arnold Paulino Jr [facility], [facility] 4 12:50:37 Pneumoni a 903591405 Completed 07/19/2023 Arnold Paulino Jr [facility], [facility] 4 12:50:37 Disorder of bone and articula r cartilag e 107621341 Completed 07/19/2023 Arnold Paulino Jr [facility], [facility] 4 12:50:37 Dyspnea 565584144 Completed 07/19/2023 [facility] 4 12:50:37 Disorder of lipid metaboli sm 090609192 Completed 07/19/2023 [facility] 4 12:50:37 Orthosta tic hypotens ion 15605296 Completed 201707/19/2023 Arnold quintanilla, [facility], [facility] 4 12:50:37 Osteopen ia 872173586 Completed 07/19/2023 Arnold Paulino Jr null, [facility], [facility] 4 12:50:37 Vitamin D deficien cy 84286808 Completed 07/19/2023 Arnold Paulino Jr null, [facility], [facility] 4 12:50:37 Elevated blood-pr essure reading without diagnosi s of hyperten sarai 969586481 Completed 201607/19/2023 Arnold Paulino Jr null, [facility], [facility] 4 12:50:37 Disorder of vitamin B12 528104035 Completed 201507/19/2023 Arnold quintanilla, [facility]ician [facility], [facility] 4 12:50:37 Lighthea dedness 427176132 Completed 07/19/2023 Arnold Paulino Jr null, [facility], [facility] 4 12:50:37 Vertigo 195168491 Completed 201707/19/2023 Arnold aPulino Jr null, [facility], [facility] 4 12:50:37 Dizzines s 836055232 Completed 201707/19/2023 Arnold Paulino Jr null, [facility], [facility] 4 12:50:37 Foot pain 18275513 Completed 07/19/2023 Arnold Paulino Jr null, [facility], [facility] 4 12:50:37 Pain of hip region 70558759 Completed 07/19/2023 Arnold Paulino Jr null, [facility], [facility] 4 12:50:37 Cough 99527108 Completed 201707/19/2023 Arnold Paulino Jr null, [facility], [facility] 4 12:50:37 [facility] hyperten sarai 82100439 Completed 201607/19/2023 Arnold quintanilla, [facility], [facility] 4 12:50:37 Supraven tricular tachycar jad 1491292 Completed 201807/19/2023 Arnold Paulino Jr null, [facility], [facility] 4 12:50:37 Cyst of kidney 361346824 Completed 201907/19/2023 Arnold Paulino Jr null, [facility], [facility] 4 12:50:37 COVID-19 719047353 Completed 202007/19/2023 Arnold Paulino Jr null, [facility], [facility] 4 12:50:37 Leukopen ia 19982201 Completed 201807/19/2023 Arnold Paulino Jr null, [facility], [facility] 4 12:50:37 Tobacco dependen ce syndrome 32437272 Completed 07/19/2023 Arnold Paulino Jr null, [facility], [facility] 4 12:50:37 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 CTC 06/04.... .?? RA?..... ..DLCO NORMAL.. 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 663558911 Completed 01/26/2020 Evgeny Rodriguez MD [address], [place], [address], [facility], [facility] 0 18:02:26 Urinary tract infectio us disease 74371346 Completed 01/09/2020 Evgeny Rodriguez MD [address], [place], [address], [facility], [facility] 0 07:09:26 Hyperten sive disorder 56370138 Completed 01/26/2020 Evgeny Rodriguez MD [address], [place], [address], [facility], [facility] 2 10:17:02 Multiple nodules of lung 212629421 Completed 201507/19/2023 Arnold Paulino Jr [facility], [facility] 4 12:50:37 Gastroes ophageal reflux disease 802814888 Completed 01/26/2020 Evgeny Rodriguez MD [address], [place], [address], [facility], [facility] 0 18:02:04 Patient encounte r status 912319053 Completed 01/09/2020 Evgeny Rodriguez MD [address], [place], [address], [facility], [facility] 0 07:07:40 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 Active ON B12 SHOTS: CARDONA [facility] 3 13:08:04 Allergic rhinitis 87040919 Active Arnold quintanilla, [facility] 3 13:08:06 [place] e 760433298 Active SEEN ON CTC [facility] 3 13:08:04 Syncope 367674259 Completed 201707/19/2023 [facility] 4 12:50:37 Gastro-e sophagea l reflux disease with esophagi tis 076886924 Active 2019 Arnold quintanilla, [facility], [facility] 3 13:08:04 [facility] hyperten sarai 92880736 Completed 201901/26/2021 Arnold Paulino Jr [facility], [facility], [facility] 4 12:50:37 Chronic obstruct [place] pulmonar y disease 70705768 Active 2019 MODERATE ........ 54%..... ...20 pk yrs...QU IT 1976 Evgeny Rodriguez MD [address] [facility] [address], [place], [address], [facility], [facility] 2 10:17:03 Hyperten sive disorder 14331954 Active 2020 Arnold Paulino Jr [facility], [facility] 3 13:08:05 Notes:Some problems listed i n Documents: #[id number], #[id number] could not be added to this patient's chart. Please review these documents and add these problems to the patient's chart manually as needed. Problem Notes None recorded. Procedures Surgical History Date Name Laterality Status Provider Name and Address Organization Details Recorded Time 05/08/19 25 G2211 cancelled Arnold Paulino Jr [facility], [facility] 04/04/2024 11:53:18 07/19/19 24 G2211 completed Arnold Paulino Jr [facility], [facility] 07/13/2023 10:35:16 07/05/19 24 G2211 cancelled Arnold Paulino Jr [facility], [facility] 06/29/2023 10:29:47 03/14/19 20 bone density scan completed Richard Hunt [facility], [facility] 02/18/2020 15:27:11 12/13/19 19 mammography completed Richard Hunt [facility], [facility] 02/18/2020 15:26:54 03/14/19 03 Colonoscopy completed Richard Hunt [facility], [facility] 02/18/2020 15:26:38 Imaging Results Imaging Date Name Status LastModified by Organization Details LastModified Time 01/05/2022 spirometry testing* completed [email or web address] In-House Test For Internal Use Only, Do Not Delete/merge, [id number] 01/14/2022 10:05:52 01/14/2022 CT, chest, w/o contrast completed [id number] [facility] Imaging All Locations, [place], [address], 02/03/2024 19:42:38 01/19/2022 complete PFT w/ post bronchodilator spirometry* completed Information not available 01/25/2022 08:31:12 02/03/2022 US, echocardiogram completed [id number] [facility] Imaging [facility] Imaging All Locations, [place], [address], 02/03/2024 20:31:07 01/18/2023 CT, chest, w/o contrast completed [id number] [facility] All Locations, [place], [address], 02/03/2024 19:39:04 01/25/2023 complete PFT w/ post bronchodilator spirometry* completed [email or web address] In-House Test For Internal Use Only, Do Not Delete/merge, [id number] 01/31/2023 09:53:43 05/24/2023 CT, chest, w/o contrast completed Information not available 06/01/2023 12:13:15 07/18/2023 XR, chest, 2 view completed [email or web address] [facility] Services [facility] Imaging All Locations, [place], [address], 07/18/2023 20:53:53 Procedure Notes None recorded. Medical Equipment None Reported. Allergies Allergen ID Allergen Name Allergen Category Reaction Reaction Severity Criticality Documentation Date Start Date Code Code System Note Provider Name and Address Organization Details Recorded Time 7075794 latex environme nt,medica tion hives Not available Not available 06/10/2022 39064 91 RxNorm [facility] 13:07:48 002045 Substance with sulfonami de structure and antibacte rial mechanism of action (substanc e) medicatio n Not available Not available Not available 02/14/2020 78081 8003 SNOMED FRIEDA [facility], [facility] 0 07:25:44 Medications Name Sig Start [...] Updated DateTime 2 152.4 cm 29.5 kg/m2 51208.4 5 g 0 97.6 [degF] 71 /min 93 % 93 % 154 mm[Hg] 75 mm[Hg] 150 mm[Hg] 76 mm[Hg] Karmen Oropeza [facility], [facility] 2 11:05:44 Date Recorded Body height Body mass index (BMI) Body weight Pain severity - 0-10 verbal numeric rating [Score] - Reported Body temperature Heart rate Oxygen saturation Oxygen saturation in Arterial blood by Pulse oximetry Systolic blood pressure Diastolic blood pressure Systolic blood pressure Diastolic blood pressure Provider Name and Address Organization Details Last Updated DateTime 3 152.4 cm 29.3 kg/m2 66892.8 6 g 0 98.1 [degF] 89 /min 93 % 93 % 162 mm[Hg] 69 mm[Hg] 138 mm[Hg] 74 mm[Hg] Naa Linares [facility] Physician [facility], [facility] 3 13:42:10 Date Recorded Body height Body mass index (BMI) Body weight Body temperature Pain severity - 0-10 verbal numeric rating [Score] - Reported Oxygen saturation Oxygen saturation in Arterial blood by Pulse oximetry Heart rate Systolic blood pressure Diastolic blood pressure Systolic blood pressure Diastolic blood pressure Provider Name and Address Organization Details Last Updated DateTime 3 152.4 cm 27 kg/m2 31569.7 5 g 97.9 [degF] 0 94 % 94 % 69 /min 150 mm[Hg] 68 mm[Hg] 135 mm[Hg] 69 mm[Hg] Richard Hunt [facility] 3 11:37:50 Date Recorded Body height Body mass index (BMI) Body weight Pain severity - 0-10 verbal numeric rating [Score] - Reported Oxygen saturation Oxygen saturation in Arterial blood by Pulse oximetry Heart rate Body temperature Systolic blood pressure Diastolic blood pressure Provider Name and Address Organization Details Last Updated DateTime 4 152.4 cm 29.5 kg/m2 72275.4 5 g 0 96 % 96 % 81 /min 97.8 [degF] 137 mm[Hg] 70 mm[Hg] Richard Hunt [facility], [facility] 4 12:16:41 Date Recorded Body height Body mass index (BMI) Body weight Pain severity - 0-10 verbal numeric rating [Score] - Reported Oxygen saturation Oxygen saturation in Arterial blood by Pulse oximetry Heart rate Body temperature Systolic blood pressure Diastolic blood pressure Provider Name and Address Organization Details Last Updated DateTime 4 152.4 cm 28.7 kg/m2 26961.0 8 g 0 95 % 95 % 87 /min 97.8 [degF] 122 mm[Hg] 65 mm[Hg] Richard Hunt [facility], [facility] 4 12:37:48 Social History Question Answer Notes LastModified by Organizat ion Details LastModified Time Tobacco Smoking Status Former Smoker Richard Hunt [facility] 02/18/2020 15:25:33 Do You Have An Advance Directive? No Information not available 01/26/2021 Is Your Home Air Conditioned? Yes [email or web address] Information not available 02/07/2023 Are You Currently Sexually Active With Anyone Who Has Traveled (within The Last 12 Weeks) To A Zika-affected Area? No [email or web address] Information not available 02/07/2023 Is Blood Transfusion Acceptable In An Emergency? Yes [email or web address] Information not available 07/19/2023 How Much Tobacco Do You Chew? None [email or web address] Information not available 02/18/2020 In The 14 [...] Virus Disease Patient Without Appropriate PPE? No [email or web address] Information not available 02/07/2023 Do You Reside In Or Have You Traveled To An Area Where Ebola Virus Transmission Is Active? No [email or web address] Information not available 02/07/2023 Do You Have An Electrostatic Air Filter? No [email or web address] Information not available 02/07/2023 What Is The Fluoride Status Of Your Home? Unknown [email or web address] Information not available 02/07/2023 When Did You Quit Smoking? 16+yearssincelastdominguez lara 1976 Information not available 02/07/2023 Do You Have A Humidifier? No [email or web address] Information not available 02/07/2023 Where Do You Live? SingleLevelHouse [email or web address] Information not available 02/07/2023 Alcohol Use No [email or web address] Informatio n not available 01/26/2021 Do You Smoke? No [email or web address] Informat ion not available 01/26/2021 Year Quit Tobacco Use 1977 [email or web address] Information not available 02/14/2020 Marital Status Informatio n not available 02/07/2023 Do You Have A Medical Power Of A Auxiliary? No Information not available 02/07/2023 What Was The Date Of Your Most Recent Tobacco Screening? 07/19/2023 [email or web address] Information not available 07/19/2023 What Is Your Current Pack Years? 30ormorepackyears Information no t available 02/07/2023 Have You Ever Been Counseled For Unhealthy Alcohol Use? No Information not available 02/07/2023 What Is Your Relationship Status? eli Information not available 01/26/2021 Do You Use Your Seat Belt Or Car Seat Routinely? Yes Information not available 02/07/2023 At What Age Did You Start Smoking Tobacco? 21 Information not available 01/26/2021 Are There Any Smokers In Your House? No [email or web address] Information not available 02/07/2023 How Much Tobacco Do You Smoke? 1 PPD [email or web address] Information not available 02/18/2020 On What Date Was Tobacco Cessation Counseling Provided? 07/19/2023 [email or web address] Information not available 07/19/2023 How Many Years Have You Smoked Tobacco? 20 Information not available 01/26/2021 Sex: Female Functional Status Question Answer Note LastModified by Organizat ion Details LastModified Time Do you use any illicit or recreational drugs? No Information not available 02/07/2023 Do you or have you ever used any other forms of tobacco or nicotine? No Information not available 02/07/2023 What is your level of alcohol consumption? Occasional [email or web address] Information not available 02/18/2020 Do you or have you ever used smokeless tobacco? Never used smokeless tobacco [email or web address] Information not available 02/18/2020 Have you been exposed to chemicals or toxins? No [email or web address] Information not available 02/07/2023 Do you have transportation difficulties? No Information not available 02/07/2023 Are you able to care for yourself? Yes [email or web address] Information n ot available 02/07/2023 Do you or have you ever used e-cigarettes or vape? Never used electronic cigarettes [email or web address] Information not available 02/18/2020 What is your exercise level? None Information not available 01/26/2021 Mental Status None recorded. Family History Relationship Description Onset Age of this Age Resolved Age Notes LastModified by Organization Details LastModified Time Mother Malignant tumor of pancreas [email or web address] Not available 07:26:49 Medical History Condition Response [...] conjugate PCV 13 7 completed Not Available [facility] 02/06/2023 04:44:00 pneumococcal polysaccharide PPV23 7 completed Not Available [facility] 02/06/2023 04:44:00 Influenza, split virus, trivalent, preservative 2 completed FRIEDA [facility], [facility] 06/18/2022 13:54:23 Pneumococcal conjugate PCV 13 5 completed Cindy Oakley null, [facility], [facility] 06/18/2022 13:54:23 Influenza, high-dose, trivalent, PF 4 completed Cindy Milford null, [facility], [facility] 06/18/2022 13:54:23 zoster recombinant 0 completed Cindy Oakley null, [facility], [facility] 06/18/2022 13:54:23 Influenza, high-dose, trivalent, PF 7 completed Cindy Oakley null, [facility], [facility] 06/18/2022 13:54:23 influenza, unspecified formulation 8 completed Marsha quintanilla, [facility], [facility] 02/14/2020 07:22:33 Influenza, high-dose, trivalent, PF 5 completed Arnold Paulino Jr null, [facility], [facility] 06/10/2022 13:08:16 Influenza, adjuvanted, quadrivalent, PF 0 completed Cindy Oakley null, [facility], [facility] 06/18/2022 13:54:23 Influenza, split virus, quadrivalent, preservative 9 completed Marsha quintanilla, [facility], [facility] 02/14/2020 07:22:33 zoster live 3 completed Cindy Oakley null, [facility], [facility] 06/18/2022 13:54:23 zoster live 3 completed Marsha Kirkpatrick null, [facility], [facility] 02/14/2020 07:22:33 Tdap 4 completed Marsha Kirkpatrick null, [facility], [facility] 02/14/2020 07:22:33 pneumococcal polysaccharide PPV23 8 completed Marsha Kirkpatrick null, [facility], [facility] 02/14/2020 07:22:33 Influenza, split virus, trivalent, preservative 2 completed [facility], [facility] 02/14/2020 07:22:33 Influenza, split virus, quadrivalent, preservative 6 completed Marsha Kirkpatrick null, [facility], [facility] 02/14/2020 07:22:33 influenza nasal, unspecified formulation 3 completed Marsha Kirkpatrick [facility], [facility] 02/14/2020 07:22:33 Influenza, split virus, quadrivalent, preservative 0 completed Marsha Kirkpatrick [facility], [facility] 02/14/2020 07:22:33 Influenza, high-dose, trivalent, PF 6 completed Cindy Oakley [facility], [facility] 06/18/2022 13:54:23 Novel [id number] 9 completed Cindy [facility], [facility] 06/18/2022 13:54:23 zoster recombinant 1 completed Cindy [facility], [facility] 06/18/2022 13:54:23 Influenza, adjuvanted, quadrivalent, PF 1 completed Cindy [facility], [facility] 06/18/2022 13:54:23 Influenza, split virus, quadrivalent, preservative 2 completed Not Available [facility] 02/06/2023 04:44:00 Influenza, split virus, quadrivalent, preservative 6 completed Not Available [facility] 02/06/2023 04:44:00 Influenza, split virus, quadrivalent, preservative 0 completed Not Available [facility] 02/06/2023 04:44:00 influenza, unspecified formulation 2 completed Arnold Paulino Jr [facility], [facility] 06/10/2022 13:08:16 Novel [id number], all formulations 9 completed Not Available [facility] 02/06/2023 04:44:00 zoster live 3 completed Not Available [facility] 02/06/2023 04:44:00 zoster live 3 completed Not Available [facility] 02/06/2023 04:44:00 Past Encounters Encounter ID Performer Location Encounter Start Date Encounter Closed Date Diagnosis/Indication Diagnosis SNOMED-CT Code Diagnosis ICD10 Code Diagnosis Note [id number] Evgeny Rodriguez MD [facility] [address] [place] [address] 02/18/2020 14:53:05 02/18/2020 15:43:34 Body mass index 30+ - obesity 291746254 E66.9 Z68.30 weight issues discussed and informatio n on weight loss given. Needs follow up on weight control as scheduled. Education handout on diets given. Exercise counseling done. Will arrange referral for dietitian, nutritioni st, Physical/o ccupationa l therapy as needed or desired. Also will consider pharmaceut ical and supplement al interventi ons Obesity 711316355 E66.9 Diet education 58770973 Z71.3 as above Chronic ob structive pulmonary disease 05951079 J44.9 Patient COPD is relatively stable Continue Stiolto and Ventolin Recheck CT chest in 1 year as well as complete PFTs Palpitations 65391199 R0 0.2 Allergic rhinitis 993571 04 J30.9 Advised Trial of Flonase 1 puff each nostril BID. May try OTC Nasacort as well. Use Gagandeep -Med Sinus Rinse (OTC) flushes 4-6 times / day Dyspnea on exertion 6084 5006 R06.09 Essential hypertension 73582527 I10 Multiple n odules of lung 133863561 R91.8 [id number] Evgeny Rodriguez MD [facility] [address] [place] [address] 01/26/2021 09:55:49 01/26/2021 15:12:27 Body mass index 30+ - obesity 078344552 Z68.31 weight issues discussed and informatio n on weight loss given. Needs follow up on weight control as scheduled. Education handout on diets given. Exercise counseling done. Will arrange referral for dietitian, nutritioni st, Physical/o ccupationa l therapy as needed or desired. Also will consider pharmaceut ical and supplement al interventi ons Obesity 043369492 E66.9 see BMI above for details Diet education 66596479 Z71.3 as above Dyspnea on exertion 6084 [...] conditioni ng Chronic ob structive pulmonary disease 73467451 J44.9 chronic {{complain t conditio n disease [...] Ventolin inhaler Multiple n odules of lung 692541550 R91.8 chronic {{complain t conditio n disease [...] on Fleischner Society Guidelines Hypertensive disorder 38 965758 I10 Chronic {{complain t conditio n* disease [...] Follow up as scheduled. Depression screening 171 712970 Z13.89 Patient scored __LOW___DE PRESSION SCREENING: PHQ-9 performed today, additional time spent for staff scoring and provider review for completion of chart. [id number] Evgeny Rodriguez MD [facility] [address] [facility] [address] [place] [address] 01/05/2022 09:18:46 01/05/2022 10:28:34 Hypertensive disorder 58620220 I10 Chronic {{complain t conditio n* disease [...] this time Multiple n odules of lung 987613402 R91.8 chronic {{complain t conditio n disease [...] based on Fleischner Society Guidelines Allergic rhinitis 109639 04 J30.9 Chronic {{complain t conditio n [...] exac erbation of chronic obstructive pulmonary disease 102571653 J44.1 Chronic {{complain t conditio n disease [...] No Antibiotic s necessary at this time [id number] Evgeny Rodriguez MD [facility] [address] [place] [address] 01/26/2022 10:44:19 01/26/2022 11:55:05 Chronic obstructive pulmonary disease 18534671 J44.9 Chronic {{complain t conditio n disease [...] provided Recheck complete PFTs Hypertensive disorder 38 340154 I10 Chronic {{complain t conditio n* disease [...] this time Multiple n odules of lung 100798112 R91.8 chronic {{complain t conditio n disease [...] based on Fleischner Society Guidelines Allergic rhinitis 307305 04 J30.9 Chronic {{complain t conditio n [...] 2 puffs BID as well Pulmonary hypertension 64998376 I27.20 Chronic {{complain t conditio n disease [...] Check echocardio gram Atheroscle rosis of aorta 11754414 I70.0 chronic {{complain t conditio n disease [...] take OTC antacids in case of heartburn [id number] MD DENITA [facility] [address] [place] [address] 06/18/2022 13:35:13 06/18/2022 14:51:34 Chronic obstructive pulmonary disease 12761825 J44.9 Chronic {{complain t conditio n disease [...] Try to do it BID Allergic rhinitis 426955 04 J30.9 Chronic {{complain t conditio n [...] puffs BID as well Hypertensive disorder 38 483890 I10 Chronic {{complain t conditio n* disease [...] at this time Atheroscle rosis of aorta 01871018 I70.0 chronic {{complain t conditio n disease [...] antacids in case of heartburn Pulmonary hypertension 13338253 I27.20 Chronic {{complain t conditio n disease [...] Failure at this time Rheumatoid arthritis 698 03222 M06.9 chronic {{complain t conditio n disease [...] Plaquenil Chronic ki dney disease stage 3A 516436846 N18.31 chronic {{complain t conditio n disease [...] Continue to monitor closely Immunodefi ciency disorder 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 chronic {{complain t conditio n disease [...] for rheumatoid arthritis Continue to monitor closely [id number] Evgeny Rodriguez MD [facility] [address] [facility] [address] [place] [address] 02/07/2023 11:22:34 02/07/2023 12:08:43 Chronic obstructive pulmonary disease 95131195 J44.9 Chronic {{complain t conditio n disease [...] CT chest in 4 months Allergic rhinitis 100518 04 J30.9 Chronic {{complain t conditio n [...] / Nasacort 2 puffs BID as well [id number] Evgeny Rodriguez MD [facility] [address] [place] [address] 07/08/2023 12:03:14 07/08/2023 13:05:19 Allergic rhinitis 84642641 J30.9 Chronic {{complain t conditio n disease [...] as well. Reviewed most common allergens, environmen harhs control measures, and OTC meds based on symptoms. Neilmed Sinus rinse 3-4 times a day is probably the most effective of all measures Try OTC Alondra, Zyrtec or Claritin. May try Alondra D, Zyrtec D, or Claritin D as well Try OTC Flonase / Nasacort 2 puffs BID as well Hypertensive disorder 38 145568 I10 Chronic {{complain t conditio n* disease [...] at this time Atheroscle rosis of aorta 74810802 I70.0 chronic {{complain t conditio n disease [...] heartburn Chronic ki dney disease stage 3A 817272430 N18.31 chronic {{complain t conditio n disease [...] Continue to monitor closely Immunodefi ciency disorder 381902705 D84.81 chronic {{complain t conditio n disease [...] arthritis Continue to monitor closely Pulmonary hypertension 05600351 I27.20 Chronic {{complain t conditio n disease [...] this time Chronic ob structive pulmonary disease 51167028 J44.9 Chronic {{complain t conditio n disease [...] chest in 4 months Rheumatoid arthritis 698 27534 M06.9 chronic {{complain t conditio n disease [...] on Plaquenil 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 Needs monitoring Prescripti on drug management : No meds given at this time. Follow up as scheduled. Patient has patchy pulmonary fibrosis seen on imaging studies in the past There is no evidence of idiopathic pulmonary fibrosis or significan t reduction in diffusing capacity or hypoxemia Continue to monitor closely Pneumonia 760513351 J18. 9 Cor pulmonale 09534909 I 27.9 Chronic and unstable Patient has edema secondary to use of steroids Torsemide 10 mg a day for a few days and then as needed [id number] MD DENITA [facility] [address] [place] [address] 07/19/2023 12:31:38 07/19/2023 12:53:00 Chronic obstructive pulmonary disease 69137723 J44.9 Chronic {{complain t conditio n disease [...] to do it BID Hypertensive disorder 38 545262 I10 Chronic {{complain t conditio n* disease [...] None Recorded Advance Directives Directive N: Payers Insurance Date Sequence Insurance Name Policy Number Policy Azul Covered Member ID Azul Member ID Guarantor Name 05/05/2024 1 [employer] (MEDICARE REPLACEMENT/ ADVANTAGE - PPO) [id number] Gilda Chan [id number] SELF Gilda Chan 06/26/2021 2 [facility] (MEDICARE REPLACEMENT/ ADVANTAGE - PPO) [id number] Gilda Pool Scheehser [id number] Gilda Pool Scheehser 05/31/2022 1 [employer] (MEDICARE REPLACEMENT/ ADVANTAGE - PPO) Gilda Pool Scheehser [id number] Gilda Pool Scheehser 03/19/2024 1 [facility] (MEDICARE REPLACEMENT/ ADVANTAGE - PPO) [id number] Gilda Pool Scheehser [id number] Gilda Pool Scheehser 01/20/2021 1 [place] Gilda Pool Scheehser [id number] Gilda Pool Scheehser 01/01/2020 1 *SELF PAY* Al mariana Pool Scheehser 01/20/2021 1 [facility] (PPO) [id number] Gilda Pool Scherobertser [id number] Gilda Pool Schestuart Notes Date Note Type Note Provider Name [...] chest and PFTs noted Evgeny Rodriguez MD [address] [address], [place], [address], [facility], [facility] 01/26/2022 11:51:56 06/18/2022 text/html Patient was [...] levels now Evgeny Rodriguez MD [address], [place], [address], [facility], [facility] 06/18/2022 14:53:33 02/07/2023 text/html Patient having increasing cough and shortness of breath PFTs noted CT of the chest noted Patient complains of sinus pressure, dull headache, nasal stuffiness and postnasal drip. There is cough especially at night. Mucus is usually clear. Evgeny Rodriguez MD [address], [place], [address], [facility] [employer] [facility], [employer] 02/07/2023 13:08:19 07/08/2023 text/html Patient hospital ized for multifocal pneumonia and exacerbation of COPD He recovered well with antibiotic therapy and aggressive corticosteroids and being tapered off steroids slowly There is considerable pedal edema Evgeny Rodriguez MD [address], [place], [address], [facility], [employer] 07/08/2023 13:10:08 07/19/2023 text/html Patient experien devante expiratory wheezing on and off with cough and shortness of breath primarily from changes in environmental conditions Blood Pressure seems to be under reasonable control most of the time on current regimen of medications.BP log from home reviewed with patient Evgeny Rodriguez MD [address], [place], [address], [facility], [facility] 07/19/2023 12:58:33 OBGyn Episode No OBEpisode recorded.
--- NOTE | 2024-07-24 16:51 | AM.OFFVISNUR ---
Vital Signs 07/24/24 15:02 Height 4 ft 11.5 in Weight 147 lb BMI 29.2 BP 146/84 H Blood Pressure Location Rt brachial Position Sitting Pulse 76 Pulse Source Pulse Oximeter Pulse Oximetry (%) 95 Oxygen Delivery Method Room Air Intake Visit Reasons: Discuss Humira / Per MD Allergies latex Allergy (Verified 07/24/24 15:06) Rash Sulfa (Sulfonamide Antibiotics) Allergy (Verified 07/24/24 15:06) Rash Nursing Note PATIENT?S OWN MEDICATION-Nurse Teaching Appointment Gilda Chan DOB 1935, accompanied by her daughter, is here for Humira (CF) Adalimumab? 40mg/0.4ml Subcutaneous Syringe ?administration teaching. The patient?s daughter will be responsible for administering the injections. Patient?s Own Medication [facility] [id number] Expiration: 07/2025? ? Lot#: [id number] The patient and her daughter were educated on proper storage, hand washing, injection preparation, administration, and disposal of sharps after use. The? patient?s daughter ?demonstrated the correct technique for hand washing, injection preparation, administration..? The patient and her daughter have been advised to monitor for injection site reaction including but not limited to injection site soreness, redness, itching or swelling. If site reaction(s) were to occur, she verbalized that she is to [place] the area with a pen/marker, and take a photo of the site, noting the date and time that photo was taken. The patient and her daughter can call the office during office hours for consideration of treatment recommendations e.g., medication to reduce pain (e.g., Tylenol) or itching (e.g., Benadryl) if needed. Skin and mucosal symptoms such as generalized hives, itching, or flushing; swelling of lips, face, throat, or eyes. Respiratory symptoms such as nasal congestion, change in voice, sensation of throat closing, stridor, shortness of breath, wheeze, or cough. Cardiovascular symptoms such as collapse, dizziness, tachycardia, hypotension are considered medical emergencies and the patient verbalizes that urgent medical attention (call 911) should be sought.? The patient and her daughter were given a printout of sharps disposal locations in [place] and a printout detailing how to inject the medication. The patient and her daughter have? been informed that they must complete labs in 4 weeks after this injection. The labs have been ordered.??The injection training form was signed by the patient. All questions were answered to her stated satisfaction. The patient was monitored for 30 minutes for injection site reaction. No reaction noted. The patient departed from practice. Assessment & Plan Assessment & Plan (1) Rheumatoid arthritis: Comment: Inflammatory arthritis is not controlled on prednisone 7.5 mg daily and hydroxychloroquine 200 mg daily. She has a new provoked DVT of her left lower extremity on Eliquis since end of April/early May. TNF inhibitor Humira was approved. We discussed patient's concerns about Humira and side effects. Answered patient's and daughter's questions to their satisfaction. 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 History of CKD. Triggered by COVID-19 infection 09/2021. She was previously treated with double therapy HCQ and MTX. 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 Hydroxychloroquine dose was reduced from 300 mg daily to 200 mg daily due to worsening kidney function. She previously required bilateral knee cortisone injections and left wrist cortisone injection (12/22/2021). Prednisone 5 mg daily started ATC 12/2023 Dr. Arita. Code(s): M06.9 - Rheumatoid arthritis, unspecified Category: Medical Qualifiers: Rheumatoid arthritis location: multiple sites Rheumatoid factor presence: with rheumatoid factor Qualified Code(s): M05.79 - Rheumatoid arthritis with rheumatoid factor of multiple sites without organ or systems involvement (2) Other senior living (current) drug therapy: Code(s): Z79.899 - Other senior living (current) drug therapy Category: Medical Orders: Orders Alanine Aminotransferase 1 Month Z79.60 - traveling phlebotomist (current) use of unspecified immunomodulators and immunosuppressants Complete Blood Count Auto Diff 1 Month Z79.60 - longterm (current) use of unspecified immunomodulators and immunosuppressants Creatinine 1 Month Z79.60 - traveling phlebotomist (current) use of unspecified immunomodulators and immunosuppressants Aspartate Amino Transferase 1 Month Z79.60 - traveling phlebotomist (current) use of unspecified immunomodulators and immunosuppressants Coding Diagnoses Rheumatoid arthritis involving multiple sites with positive rheumatoid factor M05.79 Rheumatoid arthritis location: multiple sites Rheumatoid factor presence: with rheumatoid factor Other senior living (current) drug therapy Z79.899
== END 2024-07-24 15:45 | disposition home or self-care (01) ==
LOC: HO.RHES 14:58
PROVIDERS: PCP Internal Medicine; Visit Provider Internal Medicine Rheumatology
DX: M05.79 Rheumatoid arthritis with rheumatoid factor of multiple sites without organ or systems involvement (principal); Z79.899 Other long term (current) drug therapy
CPT/HCPCS: 99214; G2211

== ENCOUNTER → 2024-07-24 14:57 | Outpatient (BNVA) | payer OTHER, SELFPAY | PROVIDERS: PCP Internal Medicine; Visit Provider Internal Medicine Rheumatology ==

== ENCOUNTER 2024-08-24 09:49 | Outpatient (REF) | payer OTHER, SELFPAY ==
--- OUTSIDE RECORDS SUMMARY | 2024-08-24 10:25 | XMS_ITS ---
Author Organization [facility] Address [address] [place] [address] Care Team Providers Care Sociology Faculty Member Name Role Phone Hernandez CERVANTES, [place] Primary Care Provider [phone] Allergies Allergen (clinical drug ingredient) Drug/Non Drug Allergy documented on EMR Reaction Allergy Type Onset Date Status Latex Latex Unknown Allergy 03/02/2022 Active Substance with sulfonamide structure and antibacterial mechanism of action (substance) Sulfa Antibiotics Unknown Drug Allergy Active Results Component Value Reference Range Notes Complete Blood Count With Di fferential With Reflex to Smear Review (CBC) Reviewed date:04/28/2024 01:46:24 PM Interpretation: Performing Lab:[facility], [address] [place] [id number], Phone - [phone], Director - Shalom Notes/Report: WBC 6.9 3.4-10.8 [...] Reviewed date:04/28/2024 01:46:25 PM Interpretation: Performing Lab:[facility], [address] [place], [place] [id number], Phone - [phone], Director - Shalom Notes/Report: Cholesterol, Total 125 [...] Reviewed date:04/28/2024 01:46:25 PM Interpretation: Performing Lab:[facility], [address] [place], [place] [id number], Phone - [phone], Director - Shalom Notes/Report: Glucose 67 70-99 [...] daily Active Vitamin D (Ergocalciferol) 1.25 MG (63221 UT) 1 capsule Orally weekly for 90 [...] Encounter Location Date Provider Diagnosis [facility] [address] [place], [place] [id number] 04/05/2024 Paulo Ng Chronic obstructive pulmonary disease, unspecified J44.9 ; Essential (primary) hypertension I10 ; Rheumatoid arthritis, unspecified M06.9 ; 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 02/27 weaning down on predisone right now doing 04/05/2024 Essential (primary) hypertension (ICD-10 - I10) [facility] [id number] Continue medications and home monitoring as directed. [...] factor present (ICD-10 - M06.9) 04/05/2024 Other retirement (current) drug therapy (ICD-10 - Z79.899) Plan Of Treatment Treatment Notes Assessment Notes Chronic obstructive pulmonar y disease, unspecified Continue to follow with Skip Tracer. 02/27 weaning down on predisone right now [...] * Gilda CHAN ADOB:1935 (88 yo F)Acc No.[id number]:04/05/2024 Patient:Gilda PERAZA Provider:?Paulo Ng MD :1935???Age:88 Y???Sex:Female D ate:04/05/2024 [address] [facility] [address], [facility] Subjective: * Chief Complaints: * ???4 wk f/uThis is a [facility] visit conducted using synchronous audio . [...] 630mg once dailyVitamin D (Ergocalciferol) 1.25 MG (62776 UT) Capsule 1 capsule Orally weekly Taking [...] once dailyTaking Vitamin D (Ergocalciferol) 1.25 MG (88330 UT) Capsule 1 capsule Orally weekly Not-TakingpredniSONE [...] [facility] [id number]-???2.?Essential (primary) hypertension - I10???Notes :Ricky-[id number]-???3.?Rheumatoid arthritis, unspecified - M06.9???4.?Immunodeficiency due to conditions classified elsewhere - D84.81???5.?Routine adult health maintenance - Z00.00???6.?Rheumatoid arthritis, involving unspecified site, unspecified whether rheumatoid factor present - M06.9???7.?Other plant buyer (current) drug therapy - Z79.899??? Plan: * [...] classified elsewhere? Notes: Due to COPD.?? 5.?Other plant buyer (current) drug therapy?LAB: Complete Blood Count with Differential/Platelet (CBC) ?LAB: Lipid Panel With Total Cholesterol/HDL Ratio ?LAB: Comprehensive Metabolic Panel 14 (CMP) * Procedure Codes:?1159F Medic ation list [id number] Medication Review * Preventive Medicine:? ??Handouts :?Patient Handouts:?THE FOLLOWING HANDOUTS WERE PROVIDED:?Visit summary ?THE ABOVE HANDOUTS WERE PROVIDED BY:?Farzad Gaona 04/05/2024 08:29:28 AM EST >.?HANDOUTS REVIEWED WITH:?patient.?METHOD USED TO DEMONSTRATE UNDERSTANDING: ?verbalized understanding.?UNDERSTANDING OF HANDOUT WAS DEMONSTRATED?Farzad Gaona 04/05/2024 08:29:33 AM EST >.? * Follow Up:?prn * * PER ATTACHER Sign off status: Completed true * Provider:?Paulo Ng MD Date:?04/05 Generated for Phani elkins/Marcus/Dominique on:?08/24/2024 10:24 AM EDT History and Physical Notes * Examination Category Sub-Category Detail Notes General Examination Psych: does not dawson ear depressed, normal affect.
[2024-08-24 17:57] LABS: MANUAL DIFF FLAG NO
[2024-08-24 18:14] LABS: Basophils Percent Auto 0.8 % (0-2); Eosinophils Absolute Auto 0.2 X10*3/uL (0.0-0.4); Eosinophils Percent Auto 3.3 % (0-4); Hematocrit 35.3 % (37.0-47.0); Hemoglobin 10.3 g/dl (12.0-16.0); Imm Gran Abs Auto 0.01 X10*3/uL (0.00-0.03); Imm Gran Pct Auto 0.2 % (0.0-0.4); Lymphocytes Percent Auto 38.2 % (20-40); Mean Corpuscular HGB Conc 29.2 g/dl (31.0-35.0); Mean Corpuscular Hemoglobin 26.8 pg (27.0-33.0); Mean Corpuscular Volume 91.9 fL (80.0-98.0); Monocytes Absolute Auto 0.6 X10*3/uL (0.1-1.2); Monocytes Percent Auto 12.1 % (2-11); Neutrophils Absolute Auto 2.4 x10*3/uL (2.0-8.3); Neutrophils Percent Auto 45.4 % (45-73); Platelet Count 230 X10*3/uL (160-400); Red Blood Count 3.84 X10*6/uL (4.20-5.50); Red Cell Distribution Width 14.6 % (11.0-16.0); White Blood Count 5.2 X10*3/uL (4.8-10.8)
[2024-08-24 18:26] LABS: Alanine Aminotransferase 15 U/L (0-31); Albumin Level 3.8 g/dL (3.5-5.0); Alkaline Phosphatase 50 U/L (39-117); Anion Gap 11 (12-20); Aspartate Amino Transferase 28 U/L (5-31); Bilirubin Total 0.4 mg/dL (0.0-1.0); Blood Urea Nitrogen 25 mg/dL (9-16); C Reactive Protein < 0.10 mg/dL (< or = 0.50); Calcium 9.3 mg/dL (8.4-10.2); Carbon Dioxide 29 mmol/L (22-29); Chloride 103 mmol/L (96-108); Estimated Glomerular Filt Rate 39; Glucose Random 65 mg/dL (60-115); Potassium 4.6 mmol/L (3.3-5.1); Sodium 138 mmol/L (135-145); Total Protein 6.3 g/dL (6.5-8.0)
[2024-08-24 19:06] LABS: Erythrocyte Sedimentation Rate 18 MM/HR (0-20)
== END 2024-08-24 09:50 | disposition home or self-care (01) ==
LOC: HO.HKASLDS 09:49
PROVIDERS: Visit Provider Internal Medicine Rheumatology
DX: M05.79 Rheumatoid arthritis with rheumatoid factor of multiple sites without organ or systems involvement (principal); Z79.899 Other long term (current) drug therapy; Z79.60 Long term (current) use of unspecified immunomodulators and immunosuppressants
CPT/HCPCS: 36415; 80053; 85025; 85652; 86140

== ENCOUNTER 2024-09-19 10:40 | Outpatient (AMB) | payer OTHER, SELFPAY ==
--- OUTSIDE RECORDS SUMMARY | 2024-04-05 05:40 | XMS_ITS ---
Author Organization [employer] Address [address] [place] [address] Care Team Providers Care Sintering Press Operator Name Role Phone Hernandez CERVANTES, [place] Primary Care Provider Allergies Allergen (clinical drug ingredient) Drug/Non Drug Allergy documented on EMR Reaction Allergy Type Onset Date Status Latex Latex Unknown Allergy 03/02/2022 Active Substance with sulfonamide structure and antibacterial mechanism of action (substance) Sulfa Antibiotics Unknown Drug Allergy Active Results Component Value Reference Range Notes Complete Blood Count With Di fferential With Reflex to Smear Review (CBC) Reviewed date:04/28/2024 01:46:24 PM Interpretation: Performing Lab:[facility], [address] [place] [id number], Phone - [phone], Director - Shalom Notes/Report: WBC 6.9 3.4-10.8 x10E3/uL RBC 3.67 3.77-5.28 x10E6/uL Hemoglobin 11.0 11.1-15.9 g/dL Hematocrit 33.6 34.0-46.6 % MCV 92 79-97 fL MCH 30.0 26.6-33.0 pg MCHC 32.7 31.5-35.7 g/dL RDW 12.3 11.7-15.4 % Platelets 255 150-450 x10E3/uL Neutrophils 64 Not Estab. % Lymphs 20 Not Estab. % Monocytes 13 Not Estab. % Eos 2 Not Estab. % Basos 0 Not Estab. % Neutrophils (Absolute) 4.5 1.4-7.0 x10E3/uL Lymphs (Absolute) 1.4 0.7-3.1 x10E3/uL Monocytes(Absolute) 0.9 0.1-0.9 x10E3/uL Eos (Absolute) 0.1 0.0-0.4 x10E3/uL Baso (Absolute) 0.0 0.0-0.2 x10E3/uL Immature Granulocytes 1 Not Estab. % Immature Grans (Abs) 0.0 0.0-0.1 x10E3/uL Lipid Panel With Total Rayne sterol/HDL Ratio Reviewed date:04/28/2024 01:46:25 PM Interpretation: Performing Lab:[facility], [address] [place], [place] [id number], Phone - [phone], Director - Shalom Notes/Report: Cholesterol, Total 125 100-199 mg/dL Triglycerides 92 0-149 mg/dL HDL Cholesterol 52 >39 mg/dL VLDL Cholesterol Ayo 17 5-40 mg/dL LDL Chol Calc ([facility]) 56 0-99 mg/dL T. Chol/HDL Ratio 2.4 0.0-4.4 ratio T. Chol/HDL Ratio Men Women 1/2 Avg.Risk 3.4 3.3 Avg.Risk 5.0 4.4 2X Avg.Risk 9.6 7.1 3X Avg.Risk 23.4 11.0 Comprehensive Metabolic Pane l 14 (CMP) Reviewed date:04/28/2024 01:46:25 PM Interpretation: Performing Lab:[facility], [address] [place], [place] [id number], Phone - [phone], Director - Shalom Notes/Report: Glucose 67 70-99 mg/dL BUN 31 8-27 mg/dL Creatinine 1.25 0.57-1.00 mg/dL eGFR 41 >59 mL/min/1.73 BUN/Creatinine Ratio 25 12-28 Sodium 140 134-144 mmol/L Potassium 4.2 3.5-5.2 mmol/L Chloride 102 96-106 mmol/L Carbon Dioxide, Total 23 20-29 mmol/L Calcium 9.0 8.7-10.3 mg/dL Protein, Total 5.7 6.0-8.5 g/dL Albumin 3.5 3.7-4.7 g/dL Globulin, Total 2.2 1.5-4.5 g/dL Bilirubin, Total 0.3 0.0-1.2 mg/dL Alkaline Phosphatase 62 44-121 IU/L AST (SGOT) 21 0-40 IU/L ALT (SGPT) 24 0-32 IU/L REASON FOR VISIT 4 wk f/u, This is a Telehealth/Telemedicine visit conducted using synchronous audio . The patient'sverbal consent was obtained for this visit. Participants & Location: Patient located at home and Provider located in clinic. Medications Medication SIG (Take, Route, Frequency, Duration) Notes Start Date End Date Status predniSONE 10 MG (21) 1 tablet Orally Once a day Not-Taking Albuterol Sulfate HFA 108 (90 Base) MCG/ACT 1 puff as needed Inhalation every 4 hrs for 90 days 01/09/2024 Active BD Integra Syringe 25G X 5/8 3 ML as directed for 90 days USE DIRECTED prn Active Metoprolol Succinate 25 mg 0.5 tablets p o daily for 90 days 1/2 tab qd Active Olmesartan Medoxomil 20 MG 0.5 tablet Or ally once daily for 90 days 1/2 tablet 07/16/2022 Active Tylenol PRN Active Ipratropium-Albuterol 0.5-2.5 (3) MG/3ML 3 mL as needed Inhalation every 6 hrs Active Vasculera - as directed Orally 630mg once daily Active Vitamin D (Ergocalciferol) 1.25 MG (02457 UT) 1 capsule Orally weekly for 90 days 06/24/2023 Active Albuterol Sulfate (2.5 MG/3ML) 0.083% 3 mL as needed Inhalation every 6 hrs 0.5mg/ml Active Folic Acid 1 MG 1 tablet Orally Once a day for 90 days 01/19/2023 Active predniSONE 5 MG 1 tablet Orally Once a day Active Hydroxychloroquine Sulfate 300 MG Take 1.5 tablets Orally once a day for 90 days 09/07/2023 Active Trelegy Ellipta 200-62.5-25 MCG/ACT 1 puff Inhalation Once a day Active Tumeric Curcumin 500mg 1 tablet orally once a day Active rOPINIRole HCl 0.25 MG 1 tablet Orally twice a day for 90 days as directed bid po Active Cyanocobalamin 1000 MCG/ML 1 mL Injectio n Monthly for 180 days Active Encounters Encounter Location Date Provider Diagnosis [facility] [address] [place], [place] [id number] 04/05/2024 Paulo Ng Chronic obstructive pulmonary disease, unspecified J44.9 ; Essential (primary) hypertension I10 ; Rheumatoid arthritis, unspecified M06.9 ; 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 02/27 weaning down on predisone right now doing 04/05/2024 Essential (primary) hypertension (ICD-10 - I10) [id number]- Continue medications and home monitoring as directed. Continue low sodium diet with goal of <2g per day. Avoid stress. Avoid adding salt to food. Enjoy regular exercise like walking at least 30 minutes a day, five days a week. 04/05/2024 Rheumatoid arthritis , unspecified (ICD-10 - M06.9) Rheum discontinued methotrexate due to increasing Cr. Seeing rheum in 2 days to discuss other treatment options. 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 04/05/2024 Routine adult health maintenance (ICD-10 - Z00.00) 04/05/2024 Rheumatoid arthritis , involving unspecified site, unspecified whether rheumatoid factor present (ICD-10 - M06.9) 04/05/2024 Other intermediate manager (current) drug therapy (ICD-10 - Z79.899) Plan Of Treatment Treatment Notes Assessment Notes Chronic obstructive pulmonar y disease, unspecified Continue to follow with [facility] We[facility]. 02/27 weaning down on predisone right now doing Essential (primary) hypertension Continu e medications and home monitoring as directed. Continue low sodium diet with goal of <2g per day. Avoid stress. Avoid adding salt to food. Enjoy regular exercise like walking at least 30 minutes a day, five days a week. Rheumatoid arthritis, unspecified Rheum discontinued methotrexate due to increasing Cr. Seeing rheum in 2 days to discuss other treatment options. Immunodeficiency due to cond itions classified elsewhere Due to COPD. Next Appt Details Follow Up: prn, Reason: Progress Notes * Gilda CHAN ADOB:1935 (88 yo F)Acc No.[id number]:04/05/2024 Patient: Gilda MISHRA Provider: Demarco Ng MD :1935 A ge:88 Y S ex:Female Date:04/05/2024 Address:[address] [place], [place] [id number] Subjective: * Chief Complaints: * 4 wk f/uThis is a Telehealth/Telemedicine visit conducted using synchronous audio . The patient's verbal consent was obtained for this visit. Participants & Location: Patient located at home and Provider located in clinic. * HPI: G eneral: The patient is a 88-year-old female who is here today to follow-up on her chronic medical issues. She reports she is doing okay today. She is otherwise without new concerns. The appointment was performed via telephonic audio only communication consent was obtained from the patient she was in her home I was in my office. 13 minutes. * ROS: C omplete Review of Systems: Constitutional: D enies fever, chills, fatigue, unintentional weight loss. C ardiovascular: D enies chest pain, palpitations, lower extremity edema.?Pulmonary: D enies shortness of breath, cough. G astrointestinal: D enies abdominal pain, nausea, vomiting, diarrhea, constipation. * Medical History: * Surgical History: C olonoscopy In 01/26/2012 * Hospitalization/Major Diagno stic Procedure: C ough, COPD and pneumonia 05/2022Multifocal pneumonia 2023 * Family History: M other: Primary malignant neoplasm of pancreas . * Medications: T akingAlbuterol Sulfate (2.5 MG/3ML) 0.083% Nebulization Solution 3 mL as needed Inhalation every 6 hrs , Notes to Pharmacist: 0.5mg/mlAlbuterol Sulfate HFA 108 (90 Base) MCG/ACT Aerosol Solution 1 puff as needed Inhalation every 4 hrs BD Integra Syringe 25G X 5/8 3 ML Miscellaneous as directed USE DIRECTED, Notes to Pharmacist: prnCyanocobalamin 1000 MCG/ML Solution 1 mL Injection Monthly Folic Acid 1 MG Tablet 1 tablet Orally Once a day Hydroxychloroquine Sulfate 300 MG Tablet Take 1.5 tablets Orally once a day Ipratropium-Albuterol 0.5-2.5 (3) MG/3ML Solution 3 mL as needed Inhalation every 6 hrs Metoprolol Succinate 25 mg tablet 0.5 tablets po daily , Notes to Pharmacist: 1/2 tab qdOlmesartan Medoxomil 20 MG Tablet 0.5 tablet Orally once daily , Notes to Pharmacist: /2 tabletpredniSONE 5 MG Tablet 1 tablet Orally Once a day rOPINIRole HCl 0.25 MG Tablet 1 tablet Orally twice a day as directed, Notes to Pharmacist: bid poTrelegy Ellipta 200-62.5-25 MCG/ACT Aerosol Powder Breath Activated 1 puff Inhalation Once a day Tumeric Curcumin 500mg Tablet 1 tablet orally once a day Tylenol PRN Vasculera - Tablet as directed Orally 630mg once dailyVitamin D (Ergocalciferol) 1.25 MG (76157 UT) Capsule 1 capsule Orally weekly Taking Albuterol Sulfate (2.5 MG/3ML) 0.083% Nebulization Solution 3 mL as needed Inhalation every 6 hrs , Notes to Pharmacist: 0.5mg/mlTaking Albuterol Sulfate HFA 108 (90 Base) MCG/ACT Aerosol Solution 1 puff as needed Inhalation every 4 hrs Taking BD Integra Syringe 25G X 5/8 3 ML Miscellaneous as directed USE DIRECTED, Notes to Pharmacist: prnTaking Cyanocobalamin 1000 MCG/ML Solution 1 mL Injection Monthly Taking Folic Acid 1 MG Tablet 1 tablet Orally Once a day Taking Hydroxychloroquine Sulfate 300 MG Tablet Take 1.5 tablets Orally once a day Taking Ipratropium- Albuterol 0.5-2.5 (3) MG/3ML Solution 3 mL as needed Inhalation every 6 hrs Taking Metoprolol Succinate 25 mg tablet 0.5 tablets po daily , Notes to Pharmacist: 1/2 tab qdTaking Olmesartan Medoxomil 20 MG Tablet 0.5 tablet Orally once daily , Notes to Pharmacist: /2 tabletTaking predniSONE 5 MG Tablet 1 tablet Orally Once a day Taking rOPINIRole HCl 0.25 MG Tablet 1 tablet Orally twice a day as directed, Notes to Pharmacist: bid poTaking Trelegy Ellipta 200-62.5-25 MCG/ACT Aerosol Powder Breath Activated 1 puff Inhalation Once a day Taking Tumeric Curcumin 500mg Tablet 1 tablet orally once a day Taking Tylenol PRN Taking Vasculera - Tablet as directed Orally 630mg once dailyTaking Vitamin D (Ergocalciferol) 1.25 MG (56746 UT) Capsule 1 capsule Orally weekly Not-TakingpredniSONE 10 MG (21) Tablet Therapy Pack 1 tablet Orally Once a day Medication List reviewed and reconciled with the patientNot-Taking predniSONE 10 MG (21) Tablet Therapy Pack 1 tablet Orally Once a day Medication List reviewed and reconciled with the patient * Allergies: L atex: Allergy - Onset Date 03/02/2022ulfa Antibiotics: Allergyyes[Allergies Verified] * Implants: Objective: * Vitals: Past Vitals:* 02/28/2024 BP:138/72mm Hg, RR: Not Take n - Declined by Patient, Pulse:67/min, Ht:60in, Wt: Not Taken - Declined by Patient, Oxygen Sat:93%, Pain Scale:03-23 * 01/24/2024 BP:138/62mm Hg, RR: Not Take n - Declined by Patient, Pulse:72/min, Temp: Not Taken - Declined by Patient, Ht:60in, Wt: Not Taken - Declined by Patient, Oxygen Sat:93%, Pain Scale:10 * 01/09/2024 BP:126/67mm Hg, RR: Not Take n - Declined by Patient, Pulse:77/min, Temp: Not Taken - Declined by Patient, Ht:60in, Wt: Not Taken - Declined by Patient, Oxygen Sat: Not Taken - Declined by Patient, Pain Scale:03-23 * 11/23/2023 BP:138/65mm Hg, RR:16/min, P ulse:62/min, Temp: Not Taken - Declined by Patient, Ht:60in, Wt: Not Taken - Declined by Patient, Oxygen Sat:96%, Pain Scale:03-23 * 10/14/2023 BP:sittin/74mm Hg, RR: Not Taken - Declined by Patient, Pulse: Not Taken - Declined by Patient, Temp: Not Taken - Declined by Patient, Ht:60in, Wt: Not Taken - Declined by Patient, Oxygen Sat: Not Taken - Declined by Patient, Pain Scale:01-10 * P ast Orders: L ab:Comprehensive Metabolic Panel 14 (CMP) (Order Date - 01/19/2023) (Collection Date & Time - 09/29/2023 08:06 AM) Value Reference Range Bilirubin, Total 0.2 0.0-1.2 - mg/dL Glucose 80 70-99 - mg/dL ALT (SGPT) 22 0-32 - IU/L Alkaline Phosphatase 61 44-121 - IU/L Globulin, Total 2.3 1.5-4.5 - g/dL Albumin 3.9 3.7-4.7 - g/dL Protein, Total 6.2 6.0-8.5 - g/dL Carbon Dioxide, Total 24 20-29 - mmol/L Chloride 103 96-106 - mmol/L Potassium 4.3 3.5-5.2 - mmol/L Sodium 140 134-144 - mmol/L BUN/Creatinine Ratio 21 12-28 - Creatinine 1.04 H 0.57-1.00 - mg/dL Calcium 9.5 8.7-10.3 - mg/dL BUN 22 8-27 - mg/dL AST (SGOT) 19 0-40 - IU/L eGFR 52 L >59 - mL/min/1.73 * Examination: G eneral Examination: Psych: d oes not appear depressed, normal affect..? Assessment: * Assessment: 1. C hronic obstructive pulmonary disease, unspecified - J44.9 (Primary) N otes :[facility]-[id number] 2 . E ssential (primary) hypertension - I10 N otes :[facility]-[id number] 3 . R heumatoid arthritis, unspecified - M06.9 4 . I mmunodeficiency due to conditions classified elsewhere - D84.81 5 . R outine adult health maintenance - Z00.00 6 . R heumatoid arthritis, involving unspecified site, unspecified whether rheumatoid factor present - M06.9 7 . O ther intermediate manager (current) drug therapy - Z79.899 Plan: * Treatment: 2. E ssential (primary) hypertension Notes: Continue medications and home monitoring as directed. Continue low sodium diet with goal of <2g per day. Avoid stress. Avoid adding salt to food. Enjoy regular exercise like walking at least 30 minutes a day, five days a week. 3. R heumatoid arthritis, unspecified Notes: Rheum discontinued methotrexate due to increasing Cr. Seeing rheum in 2 days to discuss other treatment options. 4. I mmunodeficiency due to conditions classified elsewhere Notes: Due to COPD. 5. O ther skilled nursing (current) drug therapy L AB: Complete Blood Count with Differential/Platelet (CBC) L AB: Lipid Panel With Total Cholesterol/HDL Ratio L AB: Comprehensive Metabolic Panel 14 (CMP) * Procedure Codes: 1 159F Medication list [id number] Medication Review * Preventive Medicine: Handouts : Trinh trujillo Handouts: THE FOLLOWING HANDOUTS WERE PROVIDED:?Visit summary T HE ABOVE HANDOUTS WERE PROVIDED BY: Farzad Moncada 04/05/2024 08:29:28 AM EST >. H ANDOUTS REVIEWED WITH: trinh trujillo. M JENNIFER USED TO DEMONSTRATE UNDERSTANDING: v erbalized understanding. U NDERSTANDING OF HANDOUT WAS DEMONSTRATED Farzad Moncada 04/05/2024 08:29:33 AM EST >. * Follow Up: p rn * * NESS PROGRAM ADMINISTRATOR Sign off status: Completed true * Provider: Demarco Ng MD Date: 0 04/05/2024 Generated for Phani elkins/Marcus/Dominique on: 0 09/19/2024 11:43 AM EDT History and Physical Notes * Examination Category Sub-Category Detail Notes General Examination Psych: does not dawson ear depressed, normal affect.
--- NOTE | 2024-09-19 10:45 | MHC.OFFVIS ---
Vital Signs 09/19/24 10:47 Height 4 ft 11.5 in Weight 146 lb BMI 29.0 BP 140/70 H Blood Pressure Location Lt brachial Position Sitting Pulse 70 Pulse Source Pulse Oximeter Pulse Oximetry (%) 97 Oxygen Delivery Method Room Air Intake Visit Reasons: 3 Months Intake Note: Patient presents today for RA follow up. Allergies latex Allergy (Verified 09/19/24 10:45) Rash Sulfa (Sulfonamide Antibiotics) Allergy (Verified 09/19/24 10:45) Rash HPI HPI 3 Months: Details: She had total hysterectomy last week and reports that uterus cancer was contained. She is thinking about declining chemo (9m). Humira will be resumed next week. She feels great. MS none. She is on HCQ and prednisone 7.5mg qd. [facility] Medical History (Updated 09/19/24 @ 12:07 by Karlo Jay MD) Endometriosis Vitamin B 12 deficiency Restless leg syndrome Multiple pulmonary nodules Lymphopenia Hypertension Hyperlipidemia Surgical History (Updated 09/19/24 @ 10:49 by Abigail Brown CMA) H/O: hysterectomy History of bunionectomy Family History Mother Heart disease Other Pancreatic cancer Physical Exam Vital Signs: Last Vital Signs Pulse 70 09/19/24 10:47 BP 140/70 H 09/19/24 10:47 Pulse Ox 97 09/19/24 10:47 Oxygen Delivery Method Room Air 09/19/24 10:47 BMI result Body Mass Index 29.0 Const Other: General: Comfortable CVS: RRR Respiratory: clear to auscultation bilaterally. Good respiratory effort Skin: No lesions seen MSK: No synovitis. [place] nodes present. Normal range of motion of upper extremities. Good external rotation of bilateral hips. Bilateral lower extremity edema. Assessment & Plan Assessment & Plan (1) Rheumatoid arthritis: Comment: Inflammatory arthritis is controlled after starting Humira. She also remains on prednisone 7.5 mg daily and hydroxychloroquine 200 mg daily. She had total hysterectomy I am reports that pathology report confirmed that uterine cancer was contained. She is thinking about declining chemo that was recommended to her to do for 9 months. 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 History of CKD. Triggered by COVID-19 infection 09/2021. She was previously treated with double therapy HCQ and MTX. 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 Hydroxychloroquine dose was reduced from 300 mg daily to 200 mg daily due to worsening kidney function. She previously required bilateral knee cortisone injections and left wrist cortisone injection (12/22/2021). Prednisone 5 mg daily started ATC 12/2023 Dr. Arita. Code(s): M06.9 - Rheumatoid arthritis, unspecified Category: Medical Qualifiers: Rheumatoid arthritis location: multiple sites Rheumatoid factor presence: with rheumatoid factor Qualified Code(s): M05.79 - Rheumatoid arthritis with rheumatoid factor of multiple sites without organ or systems involvement Plan: Continue prednisone to 7.5 mg daily She will restart Humira next week. When she starts Humira she will decrease prednisone to 5 mg daily for 2 weeks then decrease to 2.5 mg daily for 2 weeks then stop. Labs for drug monitoring on high-risk medication up-to-date 08/2024. Reviewed this visit. Continue hydroxychloroquine 200 mg daily. 08/2023 no evidence of Plaquenil associated maculopathy on clinical exam. Prior testing October 2022 on visual field test red shows paracentral scotomas superior, visual field white August 2023 was stable to previous. On OCT right eye there is borderline thinning of parafocal non changing since 10/2022. Left eye OCT is unchanged. Requesting clinic note from eye exam for hydroxychloroquine surveillance August 2024. Wear compression stockings for lower extremity edema Return to clinic in 3 months (2) Other watermelon inspector (current) drug therapy: Code(s): Z79.899 - Other watermelon inspector (current) drug therapy Category: Medical Plan: See above Coding Level of Care Code Est Pt Level 4 (88449) Complex EM visit Add On G2211 Diagnoses Rheumatoid arthritis involving multiple sites with positive rheumatoid factor M05.79 Rheumatoid arthritis location: multiple sites Rheumatoid factor presence: with rheumatoid factor Other watermelon inspector (current) drug therapy Z79.899
[2024-09-19 10:47] VITALS: BP 140/70; PULSE 70; O2SAT 97; BMI 29.0
== END 2024-09-19 11:27 | disposition home or self-care (01) ==
LOC: HO.RHES 10:41
PROVIDERS: PCP Internal Medicine; Visit Provider Internal Medicine Rheumatology
DX: M05.79 Rheumatoid arthritis with rheumatoid factor of multiple sites without organ or systems involvement (principal); Z79.899 Other long term (current) drug therapy
CPT/HCPCS: 99214; G2211

== ENCOUNTER 2024-12-27 13:18 | Outpatient (REF) | payer MEDICARE, SELFPAY ==
--- OUTSIDE RECORDS SUMMARY | 2023-10-19 07:00 | XMS_ITS ---
Author Organization [facility] Address [address] [place] [address] [place] [address] Care Team Providers Care Kaiako Kura Tuarua Name Role Phone Paulo Ng MD Primary Care Provider [place] Serena READ [phone] REASON FOR VISIT telehealth follow up Encounters Encounter Location Date Provider Diagnosis [facility] [address] [place], [place] [id number] 10/19/2023 Serena Hackett Plan Of Treatment No Information Progress Notes * Gilda CHAN ADOB:1935 (89 yo F)Acc No.[id number]:10/19/2023 UNLOCKED PROGRESS NOTE Patient: Gilda Resendez Provider: Brenda Hackett DO :1935 A ge:88 Y S ex:Female Date:10/19/2023 Address:[address], [id number] Pcp:Paulo Ng MD Subjective: * Chief Complaints: [...] signature of Jimmy Hackett DO, DO on 12/27/2024 at 04:40 PM EDT Sign off status: Pending * Provider: Brenda Hackett DO Date: 0 10/19/2023 Generated for Phani elkins/Marcus/Dominique on: 1 04:40 PM EDT
--- OUTSIDE RECORDS SUMMARY | 2023-12-22 13:10 | XMS_ITS ---
Author Organization [facility] Address [address] [place] [address] [place] [address] Care Team Providers Care Land Acquisition Analyst Name Role Phone Paulo Ng MD Primary Care Provider [phone] [place] Serena READ [phone] REASON FOR VISIT F/U Encounters Encounter Location Date Provider Diagnosis [facility] [address] [place], [place] [id number] 12/22/2023 Serena Hackett Plan Of Treatment No Information Progress Notes * Gilda CHAN ADOB:1935 (89 yo F)Acc No.[id number]:12/22/2023 UNLOCKED PROGRESS NOTE Progress Notes Patient: Gilda Resendez Provider: Brenda Hackett DO :1935 A ge:88 Y S ex:Female Date:12/22/2023 Address:[address] [place] [address] [address], [id number] Pcp:Paulo Ng MD Subjective: * Chief Complaints: * F /U Objective: Past Vitals:* 11/23/2023 BP:138/65mm Hg, RR:16/min, P ulse:62/min, Temp: Not Taken - Declined by Patient, Ht:60in, Wt: Not Taken - Declined by Patient, Oxygen Sat:96%, Pain Scale:01-10 * 10/14/2023 BP:sittin/74mm Hg, RR: Not Taken - [...] Temp:98.1F, Ht:60in, Wt:150lbs, BMI:29.29Index, Oxygen Sat:95%, Pain Scale:-10 * 07/07/2023 BP:sittin/74mm Hg, RR:1 6/min, Pulse:78/min, Temp:98.6F, Ht:60in, Wt:150lbs, BMI:29.29Index, Oxygen Sat:98%, Pain Scale:-10 * Electronic signature of Jimmy Hackett DO, DO on 12/27/2024 at 04:40 PM EDT Sign off status: Pending * Provider: Brenda Hackett DO Date: Generated for Phani elkins/Marcus/Dominique on: 04:40 PM EDT
--- OUTSIDE RECORDS SUMMARY | 2024-06-25 10:32 | XMS_ITS | Continuity of Care Document ---
Author Organization Demarcus Tsang A Address [address] [place] [phone] Phone Care Team Providers Care Secondary Social Studies Teacher Name Role Phone Mesfin Stuart NP Unavailable [...] Date Provider Providers Copied on Encounter Demarcus WHEELER, [address] [place] [address], [id number], tel:[phone] Main Office No Information 5 Sade Toure. [address] [place] [address], [id number] , . tel: [phone] Demarcus WHEELER, [address] [place] [address], [id number], tel:[phone] Main Office Rheumatoid Arthritis (chief complaint) Rheumatoid arthritis with rheumatoid factor of multiple sites without organ or systems involvementChroni c fatigue, unspecifiedLong term (current) use of antimetabolite agentLong term use of immunosuppressant Immunodeficiency due to drugsEncounter for therapeutic drug level monitoringVenous insufficiency of lower extemity 4 Sade Toure. [address], [id number] , . tel: [phone] Demarcus WHEELER, [address] [place] [address], [id number], [place] tel:[phone] [facility] Immunodeficiency due to drugsLong term (current) use of antimetabolite agentRheumatoid arthritis with rheumatoid factor of multiple sites without organ or systems involvementEncoun ter for therapeutic drug level monitoring 4 Saed Toure. [address], [id number] , . tel: [phone] Demarcus WHEELER, [address] [place] [address], [id number], [place] tel:[phone] [facility] Inflammatory polyarthropathyRh eumatoid arthritis with rheumatoid factor of multiple sites without organ or systems involvementLong term (current) use of antimetabolite agentImmunodefici ency due to drugs 3 Sade Toure. [address], [id number] , . tel: [phone] Demarcus WHEELER, [address] [place] [address], [id number], [place] tel:[phone] [facility] No Information 3 Sade Toure. [address], [id number] , [place]. tel: [phone] Demarcus WHEELER, [address] [place] [address], [id number], tel:[phone] [facility] Chronic fatigue, unspecifiedEncoun ter for therapeutic drug level monitoringImmunod eficiency due to drugsRheumatoid arthritis with rheumatoid factor of multiple sites without organ or systems involvement 3 Sade Toure. [facility], [id number] , . tel: [phone] Demarcus WHEELER, [address] [place] [address], [id number], tel:[phone] [facility] Other roasterman (current) drug therapyChronic fatigue, unspecifiedChroni c obstructive pulmonary disease, unspecifiedRheuma toid arthritis with rheumatoid factor of multiple sites without organ or systems involvement 0 3 Sade Sommershan. [address] [place] [address], [id number] , [place]. tel: [phone] Demarcus WHEELER, [address] [place] [address], [id number], tel:[phone] [facility] Other half-way (current) drug therapyLong term (current) use of systemic steroidsChronic fatigue, unspecifiedRheuma toid arthritis with rheumatoid factor of multiple sites without organ or systems involvement 0 3 Stevemaura Mesfin. [address] [place] [address], [id number] , [place]. tel: [phone] Demarcus WHEELER, [address] [place] [address], [id number], tel:[phone] [facility] No Information 3 Sade Toure. [address] [place] [address], [id number] , [place]. tel: [phone] Demarcus WHEELER, [address] [place] [address], [id number], tel:[phone] [facility] No Information 2 Sade Toure. [facility], [id number] , [place]. tel: [phone] Demarcus WHEELER, [address] [place] [address], [id number], tel:[phone] Main Office Pain in unspecified jointRheumatoid arthritis with rheumatoid factor of multiple sites without organ or systems involvementInflam matory polyarthropathyOt her roasterman (current) drug therapy 2 Sade Toure. [address], [id number] , . tel: [phone] Demarcus WHEELER, [address], [id number], tel:[phone] Main Office Pain in unspecified jointPain in right kneeInflammatory polyarthropathyLo ng term (current) use of systemic steroids 2 Sade Toure. [address], [id number] , . tel: [phone] Demarcus WHEELER, [address], [id number], tel:[phone] [facility] No Information 9 Sade Toure. [address], [id number] , . tel: [phone] Family History Family Member Type Diagnosis Age At Onset Mother Problem (finding) Rheumatological or Auto immune disease Father Problem (finding) Rheumatological or Auto immune disease Payers Payer name Insurance type Covered libertarian ID Authoriza tion(s) No Information Social History Type Description Quantity Date Captured Comments Sex Female Smoking Status No Information Chief Complaint And Reason For Visit No Information Reason For Referral Reason For Referral No [...] pain. Functional Status Date Functional Assessmen t No Information Instructions Date Instruction Additional Infor mation No Information Assessments Type Assessment Date No Information Patient Care Teams Name Effective Dates (start - stop) Status Members No Information
--- OUTSIDE RECORDS SUMMARY | 2024-12-27 16:40 | XMS_ITS ---
Author Name [facility] Organization Unknown History of Medication Use Medication Directions Dispensed Refills Start Date End Date Stat us cephalexin (KEFTAB) 500 MG tablet 05/20/2024 active Eliquis 5 MG tablet TAKE 2 TABLETS BY MOUTH TWO TIMES A DAY FOR 7 DAYS (05/17 THROUGH 05/24) FOLLOWED BY 1 TABLET BY MOUTH TWO TIMES A DAY FOR 23 DAYS. 05/17/2024 active predniSONE (DELTASONE) 50 MG tablet TAKE 1 TABLET BY MOUTH EVERY DAY FOR 2 DAYS (05/18 & 05/19) THEN RESUME HOME DOSE 5 MG EVERY DAY. 05/17/2024 active Eliquis 2.5 MG tablet 1 tablet by Mouth/Oral Cavity route every 12 hours. 05/16/2024 active doxycycline (VIBRA-TABS) 100 MG tablet 1 tablet by Mouth/Oral Cavity route every 12 hours. 04/21/2024 active guaiFENesin-codeine (ROBITUSSIN AC) liquid TAKE 10 ML BY MOUTH EVERY 4 HOURS NEEDED FOR COUGH 04/21/2024 active Trelegy Ellipta 200-62.5-25 MCG/ACT inhaler 03/21/2024 active albuterol (PROVENTIL) (0.083%) 2.5 mg/3 mL nebulizer solution USE 1 AMPLE IN NEBULIZER EVERY 6 HOURS NEEDED FOR WHEEZING/SHORTNESS OF BREATH 02/21/2024 active Allergies Allergen Reaction Severity Comment Documented Date Source Statu s SULFA ANTIBIOTICS RASH/DERMATITIS 05/22/2024 [facility] active LATEX RASH/DERMATITIS CCT Problems Problem Status Onset Date Problem Type Date of Resoluti on Source Pelvic mass active EncounterDiagnosisAct CCT Encounters Encounter Type Encounter Reason Primary Diagnosis Location Date Ambulatory [facility] 05/22/2024 Care Team Organization Name Specialty Phone Email Start Date End [facility] 05/31/2024 06/26/2024 [facility] 05/22/2024
--- OUTSIDE RECORDS SUMMARY | 2024-12-27 16:41 | XMS_ITS | Data Portability ---
Author Organization [place] [facility] [employer], [facility], [facility] Address [address] [place] [address] Care Team Providers Care Email Marketing Specialist Name Role Phone EVGENY RODRIGUEZ Primary Care Provider EVGENY RODRIGUEZ Referring Provider EVGENY RODRIGUEZ Manager Credit Risk RAJIV CARDONA Primary Care Provider Assessment No assessment recorded. Plan of Treatment Reminders Order Date Submit Date Provider Last Modified By Organization Details Last Modified Time Details Appointments None record ed. Lab None record ed. Referral pulmon ologis t referr al 2023 024 marco Brian, [address] [facility], [address], [place], [address], 4 16:11:05 Procedures pulmon venu stress test, simple (PROC) 2021 022 tchadha In-House Test, For Internal Use Only, Do Not Delete/merge, [id number] 11:54:35 Surgeries None record ed. Imaging XR, chest, [address] [facility], [facility], All Locations, [place], [address], 4 19:53:31 CT, chest, w/o contra st 2022 024 [facility] Radiology [facility] ([facility]), [address], [address], [place], [address], 4 15:17:30 CT, chest, w/o contra st - PLEASE CALL RAMY Leonardo TO [place] OCONNOR APPT THANK YOU [address] [facility], [facility], All Locations, [place], [address], 4 10:49:10 US, echoca rdiogr am [address] [facility], [facility], All Locations, [place], [address], 18:14:33 Medication Orders torsem tea 10 mg tablet 2023 024 [facility], [address], [place], [address], 13:10:13 Patient TargetsNo targets recorded. Patient Instructions Encounter Date Encounter Id Patient Instructions Last Modified By Organization Details Last Modified Time 01/26/2022 [id number] complete PFT w/ post bronchodilator spirometry* JONNATHAN Not available 01/31/2023 08:01:25 Patient understands instructions and will seek medical attention if symptoms worsen as directed. latoya Not available 01/21/2022 16:11:09 06/18/2022 [id number] Patient understands instructions and will seek medical attention if symptoms worsen as directed. [email or web address] Not available 06/10/2022 13:09:06 02/07/2023 [id number] Patient understands instructions and will seek medical attention if symptoms worsen as directed. [email or web address] Not available 02/02/2023 09:01:25 07/08/2023 [id number] pneumonia: care instructions tchadha Not available 07/08/2023 13:10:13 Patient understands instructions and will seek medical attention if symptoms worsen as directed. [email or web address] Not available 07/06/2023 10:35:56 07/19/2023 [id number] Patient understands instructions and will seek medical attention if symptoms worsen as directed. [email or web address] Not available 07/13/2023 10:35:20 Reason for Referral Manager Credit Risk Referral for C hronic obstructive pulmonary disease [...] Only, Do Not Delete/merge, 01/26/2022 11:02:55 01/27/20 01/26/2022 pulmo nary stres s test, simpl [...] Only, Do Not Delete/merge, 01/26/2022 11:02:55 01/27/20 01/26/2022 pulmo nary stres s test, simpl [...] Only, Do Not Delete/merge, 01/26/2022 11:02:55 01/27/20 01/26/2022 pulmo nary stres s test, simpl [...] Use Only, Do Not Delete/merge, 01/26/2022 11:02:55 01/06/20 22 01/05/2022 ar metry testi ng* No observ ation record ed. [email or web address] In-House Test For Internal Use Only, Do Not Delete/merge, [id number] 01/14/2022 10:05:52 01/15/20 22 01/14/2022 CT, chest [...] Gareth Segovia, Homero willson Sign Date: [id number] [facility] All Locations, [place], [address], 02/03/2024 19:42:38 01/26/20 22 01/19/2022 compl ete PFT w/ post [facility] hodil ator ar metry * No observ ation record ed. tchadha Not Available 2021 08:31:12 02/08/20 22 02/03/2022 , echo ardio gram No observ ation record ed. [id number] [facility] All Locations, [place], [address], 02/03/2024 20:31:07 01/22/2001/18/2023 CT, chest , w/o contr ast CT [...] Signed By: Rolo Walter Sign Date: [id number] [facility] All Locations, [place], [address], 02/03/2024 19:39:04 02/01/20 23 01/25/2023 compl ete PFT w/ post [facility] hodil ator ar metry * No observ ation record ed. [email or web address] In-House Test For Internal Use Only, Do Not Delete/merge, [id number] 01/31/2023 09:53:43 06/01/19 24 05/24/2023 CT, chest [...] Note: The [employer], [facility] and the [place] preven tative servic es [...] Board Certif ied Radiol ogist Sign Date: tchadha [facility] All Locations, [place], [address], 07/18/2023 20:53:53 Result Notes Documentation Provider Name and Address Organization Details Recorded Time Ct, Chest, W/o Contrast : CT CHEST WITHOUT CONTRAST TECHNIQUE: CT was performed through the chest without the intravenous administration of an iodinated contrast agent. Axial CT images and multiplanar reformations were reconstructed. Technical factors are evaluated and adjusted to ensure appropriate radiation exposure and maintain diagnostic image quality. Automated exposure control is used to adjust the radiation dose to minimize exposure. When available, iterative reconstruction techniques are used to lower radiation dose. INDICATION:Nonspecific abnormalities in the lung COMPARISON:01/14/2022 FINDINGS: The thoracic inlet, axilla, and superficial soft tissues of the chest exhibit no evidence of a significant pathologic process. Moderate coronary artery calcifications are evident.No lymphadenopathy or other abnormal masses or fluid collections are apparent in the mediastinum. Tree in bud infiltrates are apparent, scattered throughout the lungs bilaterally, significantly more apparent on the current exam than the previous study. No pleural effusions or other signs of active pleural disease are detected. The limited views of the upper abdominal viscera and surrounding structures reveal no findings to indicate an acute pathologic process.Large partially calcified gallstones are evident in the gallbladder. There is a 6 cm cyst in the upper pole the left kidney. Severe degenerative changes are present throughout the thoracic spine. IMPRESSION: There has been a significant increase in the tree in bud infiltrates apparent in the lungs since the comparison. 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 Cholelithiasis. Moderate coronary artery calcifications. Electronically Signed By: Rolo Garcia Sign Date: 21-JAN-23 Not Available [facility] 02/03/2024 20:06:10 Xr, Chest, 2 View : INDICATION: Female 88 years. - J18.9 Pneumonia, unspecified organism. TECHNIQUE: CHEST 2V. COMPARISON: Previous CT of the chest dated 01/18/2023 FINDINGS: The cardiac silhouette is not enlarged. Atheromatous calcifications are noted about the thoracic aorta. The pulmonary vasculature is within normal limits. The lungs are hyperinflated. There are coarse lung disease. There is bilateral peribronchial thickening. There is no pneumothorax or effusion. Degenerative changes involve the thoracic spine. IMPRESSION: Chronic emphysematous changes with bilateral peribronchial thickening. Clinical correlation for bronchitis is recommended. Note: The [employer], CMS and the [place] preventative services task force now approve CT low-dose chest screening in the following patients: - Age 55-77 who currently smoke or who have quit within the last 15 years - Asymptomatic patients with a 65-ysac-pmkg history of smoking Electronically Signed By: Kale Marmolejo D.O., Board Certified Radiologist Sign Date: 18-JUL-23 [place] [address], [address], [facility], [facility] 07/18/2023 20:53:53 Problems Name Problem SNOMED Code Status Onset Date Resolution Date Notes Provider Name and Address Organization Details Recorded Time Pneumoni a 078680685 Completed 07/19/2023 Arnold Paulino Jr [facility], [facility] 12:50:37 Disorder of bone and articula r cartilag e 187484179 Completed 07/19/2023 Arnold Paulino Jr [facility], [facility] 12:50:37 Dyspnea 117395078 Completed 07/19/2023 Arnold Paulino Jr [facility], [facility] 12:50:37 Disorder of lipid metaboli sm 394047228 Completed 07/19/2023 Arnold Paulino Jr [facility], [facility] 12:50:37 Osteopen ia 880305204 Completed 07/19/2023 Arnold Paulino Jr [facility], [facility] 12:50:37 Vitamin D deficien cy 49578315 Completed 07/19/2023 Arnold Paulino Jr [facility], [facility] 12:50:37 Lighthea dedness 706477865 Completed 07/19/2023 Arnold Paulino Jr [facility], [facility] 12:50:37 Foot pain 88691855 Completed 07/19/2023 [facility] 12:50:37 Pain of hip region 05779524 Completed 07/19/2023 Arnold Paulino Jr null, [facility], [facility] 4 12:50:37 Tobacco dependen ce syndrome 63766040 Completed 07/19/2023 Arnold Paulino Jr null, [facility], [facility] 4 12:50:37 Chronic obstruct [place] pulmonar y disease 98123153 Completed 01/09/2020 MD Maria A Jamison [address], [place], [address], [facility], [facility] 2 10:17:03 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 515366190 Completed 01/26/2020 MD Maria A Jamison [address], [place], [address], [facility] Physician [facility], [facility] 0 18:02:26 Urinary tract infectio us disease 51043508 Completed 01/09/2020 MD Maria A Jamison [address], [place], [address], [facility], [facility] 0 07:09:26 Hyperten sive disorder 22084938 Completed 01/26/2020 MD Maria A Jamison [address], [place], [address], [facility] Physician [facility], [facility] 2 10:17:02 Gastroes ophageal reflux disease 806570802 Completed 01/26/2020 MD Maria A Jamison [address], [place], [address], [facility], [facility] 0 18:02:04 Patient encounte r status 363036885 Completed 01/09/2020 MD Maria A Jamison [address], [place], [address], [facility], [facility] 0 07:07:40 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 Physician [facility], [facility] 3 13:08:04 Allergic rhinitis 17093238 Active [facility] 3 13:08:06 Isidro elliott 508545919 Active SEEN ON CTC Arnold Perezjohn dw[facility]The [facility], [facility] 3 13:08:04 Multiple nodules of lung 917101390 Completed 201507/19/2023 Arnold Perezakash Mcfadden [facility], [facility] 4 12:50:37 Disorder of vitamin B12 791939416 Completed 201507/19/2023 Arnold Paulino Jr [facility] 4 12:50:37 Elevated blood-pr essure reading without diagnosi s of hyperten saari 922680593 Completed 201607/19/2023 Arnold Paulino Jr [facility] 4 12:50:37 Essentia l hyperten sarai 74026251 Completed 201607/19/2023 Arnold Paulino Jr [facility] 4 12:50:37 Venous varices 485461187 Completed 201707/19/2023 Arnold Paulino Jr [facility] 4 12:50:37 Cough 55923436 Completed 201707/19/2023 Arnold Paulino Jr [facility] 4 12:50:37 Orthosta tic hypotens ion 36151240 Completed 201707/19/2023 Arnold Paulino Jr [facility] 4 12:50:37 Dizzines s 234751821 Completed 201707/19/2023 Arnold Paulino Jr [facility] 4 12:50:37 Vertigo 549840789 Completed 201707/19/2023 Arnold quintanilla, [facility] Physician [facility], [facility] 4 12:50:37 Pulmonar y hyperten sarai 07368304 Completed 201707/19/2023 [facility], [facility] 4 12:50:37 Syncope 377341702 Completed 201707/19/2023 Arnold quintanilla, [facility] Physician [facility], [facility] 4 12:50:37 Supraven tricular tachycar jad 0381576 Completed 201807/19/2023 Arnold quintanilla, [facility], [facility] 4 12:50:37 Leukopen ia 62021990 Completed 201807/19/2023 Arnold Paulino Jr [facility], [facility] 4 12:50:37 Serum creatini ne above referenc e range 644190966 Completed 201807/19/2023 Arnold quintanilla, [facility], [facility] 4 12:50:37 Cyst of kidney 234030560 Completed 201907/19/2023 Arnold Paulino Jr [facility], [facility] 4 12:50:37 Gastro-e sophagea l reflux disease with esophagi tis 970867221 Active 2019 Arnold quintanilla, [facility], [facility] 3 13:08:04 Essentia l hyperten sarai 96627204 Completed 201901/26/2021 Arnold quintanilla, [facility] Physician [facility], [facility] 4 12:50:37 Chronic obstruct [place] pulmonar y disease 14752662 Active 2019 MODERATE ........ 54%..... ...20 pk yrs...QU IT 1976 Evgeny Rodriguez MD [address] [address], [place], [address], [facility], [facility] 2 10:17:03 Steatoti c liver disease 461894312 Completed 202007/19/2023 Arnold Paulino Jr [facility], [facility], [facility] 4 12:50:37 COVID-19 856237904 Completed 202007/19/2023 Arnold Paulino Jr [facility], [facility], [facility] 4 12:50:37 Hyperten sive disorder 36517897 Active 2020 Arnold Paulino Jr [facility], [facility], [facility] 3 13:08:05 Rheumato id arthriti s 42828359 Active 2021 ON PREDNISO NE...... Arnold Paulino Jr [facility], [facility], [facility] 3 13:08:06 Diffuse intersti tial pulmonar y fibrosis 680670427 Active 2023 DIFFUSE RETICULO NODULAR INFILTRA [place]..... CTC 06/04.... .?? RA?..... ..DLCO NORMAL.. .02/03 Evgeny Rodriguez MD [address] [address], [place], [address], [facility], [facility] 4 12:12:48 Notes:Some problems listed i n Documents: #[id number], #[id number] could not be added to this patient's chart. Please review these documents and add these problems to the patient's chart manually as needed. Problem Notes None recorded. Procedures Surgical History Date Name Laterality Status Provider Name and Address Organization Details Recorded Time 05/08/19 25 G2211 cancelled Arnold Paulino Jr [facility], [facility] 04/04/2024 11:53:18 07/19/19 24 G2211 completed Arnold Paulino Jr [facility], [facility] 07/13/2023 10:35:16 07/05/19 24 G2211 cancelled Arnold Paulino Jr [facility], [facility] 06/29/2023 10:29:47 03/14/19 20 bone density scan completed Richard [facility] 02/18/2020 15:27:11 12/13/19 19 mammography completed Richard [facility] 02/18/2020 15:26:54 03/14/19 03 Colonoscopy completed Richard [facility] 02/18/2020 15:26:38 Imaging Results None recorded. Procedure Notes None recorded. Medical Equipment None Reported. Allergies Allergen ID Allergen Name Allergen Category Reaction Reaction Severity Criticality Documentation Date Start Date Code Code System Note Provider Name and Address Organization Details Recorded Time [id number] latex environme nt,medica tion hives Not available Not available 06/10/2022 53805 91 RxNorm Arnold burton Jr [facility] 3 13:07:48 922772 Substance with sulfonami de structure and antibacte rial mechanism of action (substanc e) medicatio n Not available Not available Not available 02/14/2020 30131 8003 SNOMED Marsha Barragannandez [facility] 0 07:25:44 Medications Name Sig Start Date [...] Insulin Syringe 1 mL 25 gauge x 07/19 as directed 07/07 completed Not Available Not [...] in Arterial blood by Pulse oximetry Systolic And Diastolic Systolic And Diastolic Provider Name and Address Organization Details Last Updated DateTime 3 152.4 cm 29.3 kg/m2 42385.8 6 g 0 98.1 [degF] 89 /min 93 % 93 % 162/69 mm[Hg] 138/74 mm[Hg] Naa MALAVE - [facility], [facility] 3 13:42:10 Date Recorded Body height Body mass index (BMI) Body weight Pain severity - 0-10 verbal numeric rating [Score] - Reported Oxygen saturation Oxygen saturation in Arterial blood by Pulse oximetry Heart rate Body temperature Systolic And Diastolic Provider Name and Address Organization Details Last Updated DateTime 4 152.4 cm 29.5 kg/m2 04951.4 5 g 0 96 % 96 % 81 /min 97.8 [degF] 137/70 mm[Hg] Richard Hunt [facility] Physician [facility], [facility] 4 12:16:41 Date Recorded Body height Body mass index (BMI) Body weight Pain severity - 0-10 verbal numeric rating [Score] - Reported Oxygen saturation Oxygen saturation in Arterial blood by Pulse oximetry Heart rate Body temperature Systolic And Diastolic Provider Name and Address Organization Details Last Updated DateTime 4 152.4 cm 28.7 kg/m2 99668.0 8 g 0 95 % 95 % 87 /min 97.8 [degF] 122/65 mm[Hg] Richard Hunt [facility] Physician [facility], [facility] 4 12:37:48 Date Recorded Body height Body mass index (BMI) Body weight Pain severity - 0-10 verbal numeric rating [Score] - Reported Body temperature Heart rate Oxygen saturation Oxygen saturation in Arterial blood by Pulse oximetry Systolic And Diastolic Systolic And Diastolic Provider Name and Address Organization Details Last Updated DateTime 2 152.4 cm 29.5 kg/m2 33295.4 5 g 0 97.6 [degF] 71 /min 93 % 93 % 154/75 mm[Hg] 150/76 mm[Hg] Karmen Oropeza [facility] Physician [facility], [facility] 2 11:05:44 Date Recorded Body height Body mass index (BMI) Body weight Body temperature Pain severity - 0-10 verbal numeric rating [Score] - Reported Oxygen saturation Oxygen saturation in Arterial blood by Pulse oximetry Heart rate Systolic And Diastolic Systolic And Diastolic Provider Name and Address Organization Details Last Updated DateTime 3 152.4 cm 27 kg/m2 18655.7 5 g 97.9 [degF] 0 94 % 94 % 69 /min 150/68 mm[Hg] 135/69 mm[Hg] Richard Hunt [facility], [facility] 11:37:50 Social History Question Answer Notes LastModified by Organizat ion Details LastModified Time Tobacco Smoking Status Former Smoker FRIEDA Guevara - [facility], [facility] 02/18/2020 15:25:33 Do You Have An Advance Directive? No Information not available 01/26/2021 Is Your Home Air Conditioned? Yes [email or web address] Information not available 02/07/2023 Are You Currently Sexually Active With Anyone Who Has Traveled (within The Last 12 Weeks) To A Zika-affected Area? No [email or web address] Information not available 02/07/2023 Is Blood Transfusion Acceptable In An Emergency? Yes [email or web address] Information not available 07/19/2023 How Much Tobacco Do You Chew? None [email or web address] Information not available 02/18/2020 In The 14 [...] Virus Disease Patient Without Appropriate PPE? No [email or web address] Information not available 02/07/2023 Do You Reside In Or Have You Traveled To An Area Where Ebola Virus Transmission Is Active? No [email or web address] Information not available 02/07/2023 Do You Have An Electrostatic Air Filter? No [email or web address] Information not available 02/07/2023 What Is The Fluoride Status Of Your Home? Unknown [email or web address] Information not available 02/07/2023 When Did You Quit Smoking? 16+yearssindiana lara 1976 Information not available 02/07/2023 Do You Have A Humidifier? No [email or web address] Information not available 02/07/2023 Where Do You Live? SingleLevelHouse [email or web address] Information not available 02/07/2023 Alcohol Use No [email or web address] Informatio n not available 01/26/2021 Do You Smoke? No [email or web address] Informat ion not available 01/26/2021 Year Quit Tobacco Use 1978 [email or web address] Information not available 02/14/2020 Marital Status Informatio n not available 02/07/2023 Do You Have A Medical Power Of Customs Inspector? No Information not available 02/07/2023 What Was The Date Of Your Most Recent Tobacco Screening? 07/19/2023 [email or web address] Information not available 07/19/2023 What Is Your Current Pack Years? [email or web address] Information no t available 02/07/2023 Have You Ever Been Counseled For Unhealthy Alcohol Use? No Information not available 02/07/2023 What Is Your Relationship Status? [email or web address] Information not available 01/26/2021 Do You Use Your Seat Belt Or Car Seat Routinely? Yes Information not available 02/07/2023 At What Age Did You Start Smoking Tobacco? 21 Information not available 01/26/2021 Are There Any Smokers In Your House? No [email or web address] Information not available 02/07/2023 How Much Tobacco Do You Smoke? 1 PPD [email or web address] Information not available 02/18/2020 On What Date Was Tobacco Cessation Counseling Provided? 07/19/2023 [email or web address] Information not available 07/19/2023 How Many Years [...] is your level of alcohol consumption? Occasional [email or web address] Information not available 02/18/2020 Do you or have you ever used smokeless tobacco? Never used smokeless tobacco Information not available 02/18/2020 Have you been exposed to chemicals or toxins? No [email or web address] Information not available 02/07/2023 Do you have transportation difficulties? No [email or web address] Information not available 02/07/2023 Are you able to care for yourself independently? Yes Information not available 02/07/2023 Do you or have you ever used e-cigarettes or vape? Never used electronic cigarettes [email or web address] Information not available 02/18/2020 What is your exercise level? None Information not available 01/26/2021 Mental Status None recorded. Family History Relationship Description Onset Age of this Age Resolved Age Notes LastModified by Organization Details LastModified Time Mother Malignant neoplasm of pancreas [email or web address] Not available 07:26:49 Medical History Condition Response Cancer (location) N Other Y Gout N Kidney Stones N Arthralgia N Measles/Mumps N Vomiting N Sexually Transmitted Disease N Yeast Infection N Depression N Wheezing N Blood Clots N Pneumonia N Prostate Problems N Parkinson's N Paralysis N Headaches/Migraines N Cardiac Pacemaker/defibrillator N Dizziness N Arthritis N Night Sweats N Artificial Joint N Blood in Stool N Crohn's Disease N HIV/AIDS N Stroke/TIA N Hiatal Hernia N Kidney Disease N High blood pressure Y Gallbladder disease [...] Pox N Allergies (other than meds) Y Diarrhea N Thyroid Disease N Emphysema/COPD Y Lung Disease N Vascular Disease N Rash/Skin Condition N Amputation (location) N Nerve Damage / Neuropathy N Blood in Urine N Sleep disorder/Insomnia N Heart disease / Heart Attack N Shortness of Breath N Colon Problems N High Cholesterol N Serious Injuries N Dialysis N Leg Cramping N Chronic Cough N Memory Loss/Alzheimer's N Fever/Chills N Congestive heart failure N [...] conjugate PCV 13 7 completed Not Available [facility] 02/06/2023 04:44:00 pneumococcal polysaccharide PPV23 7 completed Not Available [facility] 02/06/2023 04:44:00 Influenza, split virus, trivalent, preservative 2 completed Cindy Pontotoc [facility], [facility] 06/18/2022 13:54:23 Pneumococcal conjugate PCV 13 5 completed Cindy Oakley [facility], [facility] 06/18/2022 13:54:23 Influenza, high-dose, trivalent, PF 4 completed Cindy Oakley [facility], [facility] 06/18/2022 13:54:23 zoster recombinant 0 completed Cindy Pontotoc [facility], [facility] 06/18/2022 13:54:23 Influenza, high-dose, trivalent, PF 7 completed Cindy Oakley [facility], [facility] 06/18/2022 13:54:23 influenza, unspecified formulation 8 completed Marsha Kirkpatrick [facility], [facility] 02/14/2020 07:22:33 Influenza, high-dose, trivalent, PF 5 completed Arnold Paulino Jr [facility], [facility] 06/10/2022 13:08:16 Influenza, adjuvanted, quadrivalent, PF 0 completed [facility] 06/18/2022 13:54:23 Influenza, split virus, quadrivalent, preservative 9 completed Marsha Kirkpatrick [facility], [facility] 02/14/2020 07:22:33 zoster live 3 completed Cindy Oakley [facility], [facility] 06/18/2022 13:54:23 zoster live 3 completed Marsha quintanilla, [facility], [facility] 02/14/2020 07:22:33 Tdap 4 completed Marsha quintanilla, [facility], [facility] 02/14/2020 07:22:33 pneumococcal polysaccharide PPV23 8 completed Marsha quintanilla, [facility], [facility] 02/14/2020 07:22:33 Influenza, split virus, trivalent, preservative 2 completed Marsha Kirkpatrick null, [facility], [facility] 02/14/2020 07:22:33 Influenza, split virus, quadrivalent, preservative 6 completed Marsha quintanilla, [facility], [facility] 02/14/2020 07:22:33 influenza nasal, unspecified formulation 3 completed Marsha quintanilla, [facility], [facility] 02/14/2020 07:22:33 Influenza, split virus, quadrivalent, preservative 0 completed Marsha quintanilla, [facility], [facility] 02/14/2020 07:22:33 Influenza, high-dose, trivalent, PF 6 completed Cindy Oakley [facility], [facility] 06/18/2022 13:54:23 Novel [id number] 9 completed Cindy Oakley null, [facility], [facility] 06/18/2022 13:54:23 zoster recombinant 1 completed Cindy Oakley null, [facility], [facility] 06/18/2022 13:54:23 Influenza, adjuvanted, quadrivalent, PF 1 completed Cindy Oakley null, [facility], [facility] 06/18/2022 13:54:23 Influenza, split virus, quadrivalent, preservative 2 completed Not Available [facility] 02/06/2023 04:44:00 Influenza, split virus, quadrivalent, preservative 6 completed Not Available [facility] 02/06/2023 04:44:00 Influenza, split virus, quadrivalent, preservative 0 completed Not Available [facility] 02/06/2023 04:44:00 influenza, unspecified formulation 2 completed Arnold Paulino Jr [place], [place] [facility], [facility] 06/10/2022 13:08:16 Novel [id number], all formulations 9 completed Not Available [facility] 02/06/2023 04:44:00 zoster live 3 completed Not Available [facility] 02/06/2023 04:44:00 zoster live 3 completed Not Available [facility] 02/06/2023 04:44:00 Past Encounters Encounter ID Performer Location Encounter Start Date Encounter Closed Date Diagnosis/Indication Diagnosis SNOMED-CT Code Diagnosis ICD10 Code Diagnosis IMO Codes Diagnosis Note [id number] Evgeny Rodriguez MD [facility] [address] [place] [address] 02/18/2020 14:53:05 02/18/2020 15:43:34 Body mass index 30+ - obesity 210470709 E66.9 Z68.30 weight issues discussed and informatio n on weight loss given. Needs follow up on weight control as scheduled. Education handout on diets given. Exercise counseling done. Will arrange referral for dietitian, nutritioni st, Physical/o ccupationa l therapy as needed or desired. Also will consider pharmaceut ical and supplement al interventi ons Obesity 663923985 E66.9 Diet education 44429657 Z71.3 as above Chronic ob structive pulmonary disease 61751092 J44.9 Patient COPD is relatively stable Continue Stiolto and Ventolin Recheck CT chest in 1 year as well as complete PFTs Palpitations 80782724 R0 0.2 Allergic rhinitis 169550 04 J30.9 Advised Trial of Flonase 1 puff each nostril BID. May try OTC Nasacort as well. Use Gagandeep -Med Sinus Rinse (OTC) flushes 4-6 times / day Dyspnea on exertion 6084 5006 R06.09 Essential hypertension 11599636 I10 Multiple n odules of lung 331873873 R91.8 [id number] MD DENITA Jamison [facility] [address] [place] [address] 01/26/2021 09:55:49 01/26/2021 15:12:27 Body mass index 30+ - obesity 560734304 Z68.31 weight issues discussed and informatio n on weight loss given. Needs follow up on weight control as scheduled. Education handout on diets given. Exercise counseling done. Will arrange referral for dietitian, nutritioni st, Physical/o ccupationa l therapy as needed or desired. Also will consider pharmaceut ical and supplement al interventi ons Obesity 436699364 E66.9 see BMI above for details Diet education 04901877 Z71.3 as above Dyspnea on exertion 6084 5006 R06.09 Chronic problem, unstable not at goal but improving. Prescripti on drug management : Prescripti on drug management : Continue medication s as in med list. Follow up as scheduled. This is secondary to COPD as well as poor conditioni ng Chronic ob structive pulmonary disease 59032552 J44.9 chronic problem, stable with no significan t clinical changes. Needs monitoring . Prescripti on drug management : Continue medication s as in med list. Plan of care: Reduce Impairment , prevent [...] Ventolin inhaler Multiple n odules of lung 604966245 R91.8 chronic problem, stable with no significan t clinical changes. Needs monitoring . Prescripti on drug management : Continue medication s as in med list. Follow up as scheduled. CT of the chest shows no change in the lung nodules as compared to 1 year ago Follow up serial CT Chest for Lung Nodules based on Fleischner Society Guidelines Hypertensive disorder 38 634051 I10 Chronic condition, stable at blood pressure goal. Needs monitoring . Prescripti on drug management : Continue medication s as in med list. Continue with therapeuti c lifestyle changes (TLC) and continue home bp monitoring . Plan of care will be to use TLC and/or medication s with periodic follow up visits to maintain a safe blood pressure goal of 140/90 or lower. Follow up as scheduled. Follow up as scheduled. Depression screening 171 994761 Z13.89 Patient scored __LOW___DE PRESSION SCREENING: PHQ-9 performed today, additional time spent for staff scoring and provider review for completion of chart. [id number] Evgeny Rodriguez MD [facility] [address] [place] [address] [place] [address] 01/05/2022 09:18:46 01/05/2022 10:28:34 Hypertensive disorder 89103318 I10 Chronic condition, stable at blood pressure goal. Needs monitoring . Prescripti on drug management : Continue medication s as in med list. Continue with therapeuti c lifestyle changes (TLC) [...] this time Multiple n odules of lung 093684449 R91.8 chronic problem, stable with no significan t clinical changes. Needs monitoring . Prescripti on drug management : Continue medication s as in med list. Follow up as scheduled. CT of the chest shows no change in the lung nodules as compared to 1 year ago Follow up serial CT Chest for Lung Nodules based on Fleischner Society Guidelines Allergic rhinitis 722675 04 J30.9 Chronic problem with progressio n. Prescripti on drug management : Change medication s as noted below. Recheck as scheduled. Discussed pathophysi ology of [...] exac erbation of chronic obstructive pulmonary disease 278172778 J44.1 Chronic problem with exacerbati on. Prescripti on drug management : Change medication s as noted below. Plan of care: Reduce Impairment , prevent [...] No Antibiotic s necessary at this time [id number] Evgeny Rodriguez MD [facility] [address] [address] 01/26/2022 10:44:19 01/26/2022 11:55:05 Chronic obstructive pulmonary disease 92199014 J44.9 Chronic problem with progressio n. Prescripti on drug management : Change medication s as noted below. Plan of care: Reduce Impairment , prevent [...] provided Recheck complete PFTs Hypertensive disorder 38 120584 I10 Chronic condition, stable at blood pressure goal. Needs monitoring . Prescripti on drug management : Continue medication s as in med list. Continue with therapeuti c lifestyle changes (TLC) [...] this time Multiple n odules of lung 986014695 R91.8 chronic problem, stable with no significan t clinical changes. Needs monitoring . Prescripti on drug management : Continue medication s as in med list. Follow up as scheduled. CT of the chest shows no change in the lung nodules as compared to 1 year ago Follow up serial CT Chest for Lung Nodules based on Fleischner Society Guidelines Allergic rhinitis 797098 04 J30.9 Chronic problem with progressio n. Prescripti on drug management : Change medication s as noted below. Recheck as scheduled. Discussed pathophysi ology of [...] 2 puffs BID as well Pulmonary hypertension 24213081 I27.20 Chronic problem with progressio n. Prescripti on drug management : Change medication s as noted below. Recheck as scheduled. 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 Needs monitoring . Prescripti on drug management : Continue medication s as in med list. Follow up as scheduled. Advised Ecotrin 81 mg / day with meals. May take OTC antacids in case of heartburn [id number] MD DENITA Jamison [facility] [address] [place] [address] 06/18/2022 13:35:13 06/18/2022 14:51:34 Chronic obstructive pulmonary disease 26446002 J44.9 Chronic problem with exacerbati on. Prescripti on drug management : Change medication s as noted below. Plan of care: Reduce Impairment , prevent [...] Try to do it BID Allergic rhinitis 369182 04 J30.9 Chronic problem with progressio n. Prescripti on drug management : Change medication s as noted below. Recheck as scheduled. Discussed pathophysi ology of [...] puffs BID as well Hypertensive disorder 38 174137 I10 Chronic condition, stable at blood pressure goal. Needs monitoring . Prescripti on drug management : Continue medication s as in med list. Continue with therapeuti c lifestyle changes (TLC) [...] at this time Atheroscle rosis of aorta 08903982 I70.0 chronic problem, stable with no significan t clinical changes. Needs monitoring . Prescripti on drug management : Continue medication s as in med list. Follow up as scheduled. Noted on chest x-ray and CT chest in the past Advised Ecotrin 81 mg / day with meals. May take OTC antacids in case of heartburn Pulmonary hypertension 00447812 I27.20 Chronic problem with progressio n. Prescripti on drug management : Change medication s as noted below. Recheck as scheduled. Patient has mild hypertensi on on previous echocardio gram No evidence of Congestive Heart Failure at this time Rheumatoid arthritis 698 20460 M06.9 chronic problem, stable with no significan t clinical changes. Needs monitoring . Prescripti on drug management : Continue medication s as in med list. Follow up as scheduled. Patient seeing rheumatolo eugenie and currently on Plaquenil Chronic ki dney disease stage 3A 831386335 N18.31 chronic problem, stable with no significan t clinical changes. Needs monitoring . Prescripti on drug management : Continue medication s as in med list. Follow up as scheduled. Estimated GFR is 47 mL/min Avoid NSAIDs Continue to monitor closely Immunodefi ciency disorder 972441000 D84.81 chronic problem, stable with no significan t clinical changes. Needs monitoring . Prescripti on drug management : Continue medication s as in med list. Follow up as scheduled. 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 Prescripti on drug management : Change medication s as noted below. Plan of care: Reduce Impairment , prevent [...] CT chest in 4 months Allergic rhinitis 790220 04 J30.9 Chronic problem with anuio n. Prescripti on drug management : Change medication s as noted below. Recheck as scheduled. Discussed pathophysi ology of [...] / Nasacort 2 puffs BID as well [id number] Evgeny Rodriguez MD [facility] [address] [place] [address] 07/08/2023 12:03:14 07/08/2023 13:05:19 Allergic rhinitis 98037759 J30.9 Chronic problem with progressio n. Prescripti on drug management : Change medication s as noted below. Recheck as scheduled. Discussed pathophysi ology of [...] puffs BID as well Hypertensive disorder 38 329041 I10 Chronic condition, stable at blood pressure goal. Needs monitoring . Prescripti on drug management : Continue medication s as in med list. Continue with therapeuti c lifestyle changes (TLC) [...] at this time Atheroscle rosis of aorta 59902830 I70.0 chronic problem, stable with no significan t clinical changes. Needs monitoring . Prescripti on drug management : Continue medication s as in med list. Follow up as scheduled. Noted on chest x-ray and CT chest in the past Advised Ecotrin 81 mg / day with meals. May take OTC antacids in case of heartburn Chronic ki dney disease stage 3A 887811219 N18.31 chronic problem, stable with no significan t clinical changes. Needs monitoring . Prescripti on drug management : Continue medication s as in med list. Follow up as scheduled. Estimated GFR is 47 mL/min Avoid NSAIDs Continue to monitor closely Immunodefi ciency disorder 719263889 D84.81 chronic problem, stable with no significan t clinical changes. Needs monitoring . Prescripti on drug management : Continue medication s as in med list. Follow up as scheduled. 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 Prescripti on drug management : Change medication s as noted below. Recheck as scheduled. Patient has mild hypertensi on on previous echocardio gram No evidence of Congestive Heart Failure at this time Chronic ob structive pulmonary disease 63895742 J44.9 Chronic problem with exacerbati on. Prescripti on drug management : Change medication s as noted below. Plan of care: Reduce Impairment , prevent [...] chest in 4 months Rheumatoid arthritis 698 77923 M06.9 chronic problem, stable with no significan t clinical changes. Needs monitoring . Prescripti on drug management : Continue medication s as in med list. Follow up as scheduled. 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 Needs monitoring Prescripti on drug management : No meds given at this time. Follow up as scheduled. Patient has patchy pulmonary fibrosis seen on imaging studies in the past There is no evidence of idiopathic pulmonary fibrosis or significan t reduction in diffusing capacity or hypoxemia Continue to monitor closely Pneumonia 690463047 J18. 9 Cor pulmonale 41699238 I 27.9 Chronic and unstable Patient has edema secondary to use of steroids Torsemide 10 mg a day for a few days and then as needed [id number] Evgeny Rodriguez MD [facility] [address] [place] [address] 07/19/2023 12:31:38 07/19/2023 12:53:00 Chronic obstructive pulmonary disease 98599204 J44.9 Chronic problem with progressio n. Prescripti on drug management : Change medication s as noted below. Plan of care: Reduce Impairment , prevent [...] to do it BID Hypertensive disorder 38 829988 I10 Chronic condition, stable at blood pressure goal. Needs monitoring . Prescripti on drug management : Continue medication s as in med list. Continue with therapeuti c lifestyle changes (TLC) [...] Member ID Azul Member ID Guarantor Name 12/26/2024 1 [employer] (MEDICARE REPLACEMENT/ ADVANTAGE - PPO) [id number] Helotes A Scheehser [id number] SELF Helotes A Scheehser 06/26/2021 2 [facility] (MEDICARE REPLACEMENT/ ADVANTAGE - PPO) [id number] Helotes A Scheehser [id number] Helotes A Scheehser 05/31/2022 1 [employer] (MEDICARE REPLACEMENT/ ADVANTAGE - PPO) Helotes A Scheehser [id number] Helotes A Scheehser 03/19/2024 1 [facility] (MEDICARE REPLACEMENT/ ADVANTAGE - PPO) [id number] Gilda A Scheehser [id number] Helotes A Scheehser 01/20/2021 1 [place] Helotes A Scheehser [id number] Helotes A Scheehser 01/01/2020 1 *SELF PAY* Al ine A Scheehser 01/20/2021 1 [facility] ([place] [id number] Gilda A Scheehser [id number] Helotes A Scheehser Notes Date Note Type Note Provider Name and Address Organization Details Recorded Time 01/26/2022 text/html Patient experiences expiratory wheezing on and off Patient's exercise [...] the mornings. CT chest and PFTs noted MD Juve Jamison[address], [place], [address], [facility], [email or web address] 01/26/2022 11:51:56 06/18/2022 text/html Patient was hospitalized [...] is gradually trending to normal levels now MD Juve Jamison[address], [place], [address], [facility], [email or web address] 06/18/2022 14:53:33 02/07/2023 text/html Patient having increasing cough and shortness of breath PFTs noted CT of the chest noted Patient complains of sinus pressure, dull headache, nasal stuffiness and postnasal drip. There is cough especially at night. Mucus is usually clear. MD [address], [place], [address], [facility], [facility] 02/07/2023 13:08:19 07/08/2023 text/html Patient hospitalized for multifocal pneumonia and exacerbation of COPD He recovered well with antibiotic therapy and aggressive corticosteroids and being tapered off steroids slowly There is considerable pedal edema MD Maria [address], [place], [address], [facility], [facility] 07/08/2023 13:10:08 07/19/2023 text/html Patient experiences expiratory wheezing on and off with cough and shortness of breath primarily from changes in environmental conditions Blood Pressure seems to be under reasonable control most of the time on current regimen of medications.BP log from home reviewed with patient Evgeny Rodriguez MD [address], [place], [address], [facility], [facility] 07/19/2023 12:58:33 OBGyn Episode No OBEpisode recorded.
--- OUTSIDE RECORDS SUMMARY | 2024-12-27 16:41 | XMS_ITS | Clinical Summary ---
Author Organization [facility] Address [address] [place] [address] Care Team Providers Care Gas Meter Repair Supervisor Name Role Phone Unavailable Primary Care [...] DOSE 5 MG EVERY DAY. 5 Active Social History Tobacco Use Types Packs/Day Years [...] - - Pulse - - Temperature 36.1 C (97 F) 05/22/2024 3:51 PM EDT Respiratory Rate - - Oxygen Saturation - - Inhaled Oxygen Concentration - - Weight - - Height - - Body Mass Index - - Plan of Treatment Health Maintenance Due Date Last Done Comments Advance Care Planning 1935 DTaP/Tdap/Td Vaccines (1 - Tdap) 1954 Pneumococcal Vaccines 50+ (1 of 1 - PCV) 1985 Zoster (Shingles) Vaccine (1 of 2) 1985 DXA Bone Density (Females,Ages 65 and older) 2000 RSV Vaccine 50 years and older and Patients (1 - 1-dose 75+ series) 2010 Influenza Vaccine 10/12/2024 12/22/2021, , 01/28/2021, Additional history exists COVID-19 Vaccine ( - season) 2024 10/10/2020 Hepatitis B Vaccines Aged Out No long er eligible based on patient's age to complete this topic Insurance [facility]
--- OUTSIDE RECORDS SUMMARY | 2024-12-27 16:41 | XMS_ITS ---
Author Organization [facility] Address [address] [place] [address] Phone Care Team Providers Care Store Receiving Clerk Name Role Phone Anjali Mcknight MD Primary Care Provider [phone] Active Problems Problem Noted Date Diagnosed Date Diabetes 09/03/2024 History of DVT of lower extremity 09/03/2024 History of pelvic fracture 09/03/2024 HLD (hyperlipidemia) 09/03/2024 Osteoarthritis 09/03/2024 Endometrial cancer 08/02/2024 Chronic obstructive pulmonary disease 01/26/2020 Overview (09/03/2024): MODERATE........54%........20 pk yrs...QUIT 1976 Gastro-esophageal reflux disease with esophagiti s 01/26/2020 High serum creatinine 03/11/2019 Vertigo 01/19/2018 Essential hypertension 02/25/2017 Current Treatment and Therapy Plans No current plan information found. Past Treatment and Therapy Plans No past plan information found. Radiation Treatments * Course C1 10/31/2024 - 11/07/2024 Treatment Period Energy Fraction Dose Fractions Total Dose Plans Planned C1A1^C1A1 10/31/2024 - 11/07/2024 700 cGy 3 / 3 2,100 cGy Reference Points Delivered Brachy 10/31/2024 - 11/07/2024 2,100 cGy Ci*s 10/31/2024 - 11/07/2024 12,939 cGy Rectum 10/31/2024 - 11/07/2024 1,821 cGy
--- OUTSIDE RECORDS SUMMARY | 2024-12-27 16:41 | XMS_ITS | Clinical Summary ---
Author Organization [facility] Address [address] [place] [phone] Phone Care Team Providers Care Charting Clerk Name Role Phone Anjali Mcknight MD Primary Care Provider [phone] Allergies Active Allergy Reactions Criticality Noted Date Comments Latex Hives,Rash High 06/05/2022 Sulfa (Sulfonamide Antibiotics) Rash Medium 05/12 Medications predniSONE (DELTASONE) 5 MG tablet Take 7.5 mg by mouth daily. Active olmesartan (BENICAR) 20 mg tablet Take 10 mg by mouth daily. 5 Active metoprolol succinate (TOPROL-XL) 25 MG 24 hr tablet Take 25 mg by mouth daily. Active hydroxychloroqu ine (PLAQUENIL) 200 mg tablet Take 200 mg by mouth daily. 5 Active LASIX 20 mg tablet Take 20 mg by mouth daily. 5 Active apixaban (ELIQUIS) 5 mg tablet Take 5 mg by mouth 2 (two) times a day. 5 Active HUMIRA,CF, 40 mg/0.4 mL syringe kit Inject 40 mg under the skin every 14 (fourteen) days. 5 Active ipratropium-alb uteroL (DUONEB) 0.5-3 mg (2.5 mg base)/3 mL nebulizer solution Take 3 mL by nebulization every 6 (six) hours. 5 Active rOPINIRole (REQUIP) 0.25 MG tablet Take 0.25 mg by mouth nightly at bedtime. Active torsemide (DEMADEX) 10 MG tablet Take 10 mg by mouth once. Active fluticasone-ume clidin-vilanter (TRELEGY ELLIPTA) 100-62.5-25 mcg inhalation powder Inhale 1 puff into the lungs daily. Active Active Problems Problem Noted Date Diagnosed Date Diabetes 09/03/2024 History of DVT of lower extremity 09/03/2024 History of pelvic fracture 09/03/2024 HLD (hyperlipidemia) 09/03/2024 Osteoarthritis 09/03/2024 Endometrial cancer 08/02/2024 Chronic obstructive pulmonary disease 01/26/2020 Overview (09/03/2024): MODERATE........54%........20 pk yrs...QUIT 1976 Gastro-esophageal reflux disease with esophagiti s 01/26/2020 High serum creatinine 03/11/2019 Vertigo 01/19/2018 Essential hypertension 02/25/2017 Encounters Date Type Department Care Team Description 12/13/2024 12:15 PM EDT Nutrition Nutrition Department, [facility] [address] [place] [address] Dee Morales MD Prentice, Elizabeth, LDN Dietary counseling and surveillance (Primary Dx) 11/07/2024 10:47 AM EDT - 11/07/2024 11:59 PM EDT Hospital Encounter Department of Radiation Oncology [address] [place] [phone] Hammad Larson MD Discharge Disposition: Home or Self Care 11/07/2024 Radiation Completion Encounter Department of Radiation Oncology [address] [place] [phone] Hammad Larson MD 11/02/2024 4:07 PM EDT - 11/02/2024 11:59 PM EDT Hospital Encounter Department of Radiation Oncology [address] [place] [phone] Hammad Larson MD Franco, Idalid, MD, MPH Discharge Disposition: Home or Self Care 10/31/2024 10:54 AM EDT - 10/31/2024 11:59 PM EDT Hospital Encounter Department of Radiation Oncology [address] [place] [phone] Hammad Larson MD Discharge Disposition: Home or Self Care 10/31/2024 10:48 AM EDT - 10/31/2024 10:53 AM EDT Hospital Encounter [facility] Molecular DX Lab [facility] [address] [place] [phone] Discharge Disposition: Home or Self Care 10/30/2024 Orders Only [facility] Anatomic Pathology [address] [place], [place] [id number] Luciana Irizarry MD Endometrial carcinoma (Primary Dx) 10/23/2024 8:42 AM EDT - 10/23/2024 11:59 PM EDT Hospital Encounter Department of Radiation Oncology [address] [place] [phone] Hammad Larson MD Discharge Disposition: Home or Self Care 10/18/2024 Telephone [facility], [facility], [address], [address] [place] [phone] Cayla Sagastume RN Care Coordination 10/18/2024 Orders Only [facility], [facility], [address], [address] [place] [phone] Meron White MD 10/05/2024 10:00 AM EDT Office Visit [facility], [facility], [address], [address] [place] [phone] Meron White MD Endometrial cancer (Primary Dx) from Last 3 Months Social History Tobacco Use Types Packs/Day Years Used Date Smoking Tobacco: Never Assessed Child or Family Care Answer Date Record ed Do you have problems with on e of the following making it difficult for you to work, study, or receive health care? No 09/03/2024 Education Answer Date Recorded Are you interested in more education? Not on jhonny e 08/14/2024 Are you concerned about learning? Not on file 08/14/2024 No 08/14/2024 No 08/14/2024 Food Answer Date Recorded Within the past 6 months we worried whether our food would run out before we got money to buy more. Never True 09/03/2024 Within the past 6 months the food we bought just didn't last and we didn't have enough money to get more. Never True Residential Stability Answer Date Recor ded What is your housing situation today? I have frederick sing 09/03/2024 How many times have you move d in the past 12 months? Zero (I did not move) 09/03/2024 Paying for Meds Answer Date Recorded Do you have trouble paying for medicines? No 09/03/2024 Paying Utility Bills Answer Date Record ed Do you have trouble paying your heating or elect ricity bill? No 09/03/2024 Transportation Answer Date Recorded Has the lack of transportati on kept you from medical appointments or from getting medications? No 09/03/2024 Digital Access Answer Date Recorded No 08/14/2024 No 08/14/2024 Reliable internet access at home? Not on file 08/14/2024 Device with a working camera? Not on file Comments Unknown Sex and Gender Information Value Date Recorded Sex Assigned at Female 08/09/2024 10:10 AM EDT Legal Sex Female 10:10 AM EDT Gender Identity Female 08/09/2024 10:10 AM EDT Sexual Orientation Straight 12/14/2024 10 :20 AM EDT Last Filed Vital Signs Vital Sign Reading Time Taken Comments Blood Pressure 165/72 10/05/2024 9:36 AM EDT Pulse 61 10/05/2024 9:36 AM EDT Temperature 36.4 C (97.5 F) 10/05/2024 9:36 AM EDT Respiratory Rate 18 10/05/2024 9:36 AM EDT Oxygen Saturation 98% 10/05/2024 9:36 AM EDT Inhaled Oxygen Concentration - - Weight 63.9 kg (140 lb 14 oz) 10/05/2024 9:35 AM EDT Height 149.1 cm (4' 10.7 ) 10/05/2024 9:35 AM ED T Body Mass Index 28.74 10/05/2024 9:35 AM EDT Plan of Treatment Upcoming Encounters Date Type Department Care Team (Late st Contact Info) Description 11/07/2024 Procedure Pass [facility] [place], [facility] [place] [address] [facility] [place] [address] 11/07/2024 Procedure Pass [facility] [place], [facility] [place] [address] [facility], [address] [place] [address] 02/12/2025 12:30 PM EST Appointment [facility], [facility] [place] [address] [facility], [address] [place] [address] Hammad Larson MD [address] [place] [phone] [email or web address] 02/12/2025 2:00 PM EST Appointment Department of Radiation Oncology [address] [place] [phone] Hammad Larson MD [address] [place] [phone] [email or web address] Health Maintenance Due Date Last Done Comments Adult Td,Tdap Booster 1935 CREATININE LEVEL 1935 HEMOGLOBIN A1C 1935 POTASSIUM LEVEL 1935 DEPRESSION SCREENING 1947 LIPID PANEL 1953 PNEUMOCOCCAL VACCINES (50+ years) (1 of 2 - PCV) 1954 ZOSTER VACCINES (1 of 2) 1954 OSTEOPOROSIS SCREENING INITIAL (ONE-TIME) 2000 RSV VACCINE (1 - 1-dose 75+ series) 2010 COVID-19 VACCINE (2 - Moderna risk series) 11/07/2020 10/10/2020 DIABETIC EYE EXAM 09/03/2024 INFLUENZA VACCINE Completed 10/18/2024, , 12/07/2022, Additional history exists HEPATITIS A VACCINES Aged Out No long er eligible based on patient's age to complete this topic HIB VACCINES Aged Out No longer eligi ble based on patient's age to complete this topic MENINGOCOCCAL VACCINES (ACWY) Aged Out No longer eligible based on patient's age to complete this topic MENINGOCOCCAL VACCINES (B) Aged Out N o longer eligible based on patient's age to complete this topic Medical Devices Not on file Procedures Procedure Name Priority Date/Time Associated Diagnosis Comments RAD ONC ARIA SESSION SUMMARY Routine 11/07/2024 11:25 AM EDT RAD ONC ARIA SESSION SUMMARY Routine 11/07/2024 11:25 AM EDT RAD ONC ARIA SESSION SUMMARY Routine 10/31/2024 12:09 PM EDT ONCOPANEL Routine 10/31/2024 10:48 AM EDT Endometrial carcinoma from Last 3 Months Results * Rad Onc Aria Session Summary (11/07/2024 11:25 AM EDT) Course ID C1 ARIA RADIATION ONCOLOGY Course Intent Radical ARIA RADIATION ONCOLOGY Course Start Date 10/31/2024 8:19 AM ARIA RADIATION ONCOLOGY Course First Treatment Date 10/31/2024 12:09 PM ARIA RADIATION ONCOLOGY Course Last Treatment Date 11/07/2024 11:25 AM ARIA RADIATION ONCOLOGY Course Elapsed Days 7 ARIA RADIATION ONCOLOGY Plan ID [id number] ARIA RADIATION ONCOLOGY Plan Name C1A1 ARIA RADIATION ONCOLOGY Plan Fractions Treated to Date 3 ARIA RADIATION ONCOLOGY Plan Total Fractions Prescribed 3 ARIA RADIATION ONCOLOGY Plan Prescribed Dose Per Fraction 7 Gy ARIA RADIATION ONCOLOGY Plan Total Prescribed Dose 2100 cGy ARIA RADIATION ONCOLOGY Plan Primary Reference Point Brachy ARIA RADIATION ONCOLOGY Reference Point ID Brachy ARIA RADIATION ONCOLOGY Reference Point Dosage Given to Date 21 Gy ARIA RADIATION ONCOLOGY Reference Point Session Dosage Given 7 Gy ARIA RADIATION ONCOLOGY Reference Point ID Ci*s ARIA RADIATION ONCOLOGY Reference Point Dosage Given to Date 129.39 Gy ARIA RADIATION ONCOLOGY Reference Point Session Dosage Given 43.13 Gy ARIA RADIATION ONCOLOGY Reference Point ID Rectum ARIA RADIATION ONCOLOGY Reference Point Dosage Given to Date 18.21 Gy ARIA RADIATION ONCOLOGY Reference Point Session Dosage Given 6.07 Gy ARIA RADIATION ONCOLOGY 11/07/2024 11:2 5 AM EDT us Conversion Provider Not In Sys RADIATION ONCOLOG Y ORDERABLES Final Result ARIA RADIATION ONCOLOGY * Rad Onc Aria Session Summary (11/07/2024 11:25 AM EDT) Course ID C1 ARIA RADIATION ONCOLOGY Course Intent Radical ARIA RADIATION ONCOLOGY Course Start Date 10/31/2024 8:19 AM ARIA RADIATION ONCOLOGY Course First Treatment Date 10/31/2024 12:09 PM ARIA RADIATION ONCOLOGY Course Last Treatment Date 11/07/2024 11:25 AM ARIA RADIATION ONCOLOGY Course Elapsed Days 7 ARIA RADIATION ONCOLOGY Plan ID [id number] ARIA RADIATION ONCOLOGY Plan Name C1A1 ARIA RADIATION ONCOLOGY Plan Fractions Treated to Date 3 ARIA RADIATION ONCOLOGY Plan Total Fractions Prescribed 3 ARIA RADIATION ONCOLOGY Plan Prescribed Dose Per Fraction 7 Gy ARIA RADIATION ONCOLOGY Plan Total Prescribed Dose 2100 cGy ARIA RADIATION ONCOLOGY Plan Primary Reference Point Brachy ARIA RADIATION ONCOLOGY Reference Point ID Brachy ARIA RADIATION ONCOLOGY Reference Point Dosage Given to Date 21 Gy ARIA RADIATION ONCOLOGY Reference Point Session Dosage Given 14 Gy ARIA RADIATION ONCOLOGY Reference Point ID Ci*s ARIA RADIATION ONCOLOGY Reference Point Dosage Given to Date 129.39 Gy ARIA RADIATION ONCOLOGY Reference Point Session Dosage Given 86.26 Gy ARIA RADIATION ONCOLOGY Reference Point ID Rectum ARIA RADIATION ONCOLOGY Reference Point Dosage Given to Date 18.21 Gy ARIA RADIATION ONCOLOGY Reference Point Session Dosage Given 12.14 Gy ARIA RADIATION ONCOLOGY 11/07/2024 11:2 5 AM EDT us Conversion Provider Not In Sys RADIATION ONCOLOG Y ORDERABLES Final Result ARIA RADIATION ONCOLOGY * Rad Onc Aria Session Summary (10/31/2024 12:09 PM EDT) Course ID C1 ARIA RADIATION ONCOLOGY Course Intent Radical ARIA RADIATION ONCOLOGY Course Start Date 10/31/2024 8:19 AM ARIA RADIATION ONCOLOGY Course First Treatment Date 10/31/2024 12:09 PM ARIA RADIATION ONCOLOGY Course Last Treatment Date 10/31/2024 12:09 PM ARIA RADIATION ONCOLOGY Course Elapsed Days 0 ARIA RADIATION ONCOLOGY Plan ID [id number] ARIA RADIATION ONCOLOGY Plan Name C1A1 ARIA RADIATION ONCOLOGY Plan Fractions Treated to Date 1 ARIA RADIATION ONCOLOGY Plan Total Fractions Prescribed 3 ARIA RADIATION ONCOLOGY Plan Prescribed Dose Per Fraction 7 Gy ARIA RADIATION ONCOLOGY Plan Total Prescribed Dose 2100 cGy ARIA RADIATION ONCOLOGY Plan Primary Reference Point Brachy ARIA RADIATION ONCOLOGY Reference Point ID Brachy ARIA RADIATION ONCOLOGY Reference Point Dosage Given to Date 7 Gy ARIA RADIATION ONCOLOGY Reference Point Session Dosage Given 7 Gy ARIA RADIATION ONCOLOGY Reference Point ID Ci*s ARIA RADIATION ONCOLOGY Reference Point Dosage Given to Date 43.13 Gy ARIA RADIATION ONCOLOGY Reference Point Session Dosage Given 43.13 Gy ARIA RADIATION ONCOLOGY Reference Point ID Rectum ARIA RADIATION ONCOLOGY Reference Point Dosage Given to Date 6.07 Gy ARIA RADIATION ONCOLOGY Reference Point Session Dosage Given 6.07 Gy ARIA RADIATION ONCOLOGY 10/31/2024 12:0 9 PM EDT us Conversion Provider Not In Sys RADIATION ONCOLOG Y ORDERABLES Final Result ARIA RADIATION ONCOLOGY from Last 3 Months Insurance [employer] P[employer] MEDICARE REPLACEMENT [employer] MEDICARE REPLACEMENT [employer] P[employer] MEDICARE REPLACEMENT [employer] PPO MEDICARE REPLACEMENT [employer] PPO MEDICARE REPLACEMENT [employer] PPO MEDICARE REPLACEMENT Care Teams Charting Clerk Relationship Specialty Start Date End Date Anjali Mcknight MD [address] [place] [address] PCP - General Internal Medicine 12/14/24 Additional Source Comments The information contained in this document represents components of the legal health record. It is not the complete legal health record.[facility]
--- OUTSIDE RECORDS SUMMARY | 2024-12-27 16:43 | XMS_ITS | Patient Health Record ---
Author Organization [facility] Address [address] [place] [id number] Care Team Providers Care Manager Beverage Name Role Phone Hernandez CERVANTES, [place] Primary Care Provider Allergies Allergen (clinical drug ingredient) Drug/Non Drug Allergy documented on EMR Reaction Allergy Type Onset Date Status Latex Latex Unknown Allergy 03/02/2022 Active Substance with sulfonamide structure and antibacterial mechanism of action (substance) Sulfa Antibiotics Unknown Drug Allergy Active Results Component Value Reference Range Flag Notes Lipid Panel With Total Rayne sterol/HDL Ratio Reviewed date:06/20/2024 07:19:39 AM Interpretation: Performing Lab:[facility], [address] [place] [id number], Phone - [phone], Director - MDElsadry Notes/Report: Cholesterol, Total 131 100-199 mg/dL Triglycerides 134 0-149 mg/dL HDL Cholesterol 51 >39 mg/dL VLDL Cholesterol Ayo 23 5-40 mg/dL LDL Chol Calc (NIH) 57 0-99 mg/dL T. Chol/HDL Ratio 2.6 0.0-4.4 ratio T. Chol/HDL Ratio Men Women 1/2 Avg.Risk 3.4 3.3 Avg.Risk 5.0 4.4 2X Avg.Risk 9.6 7.1 3X Avg.Risk 23.4 11.0 Comprehensive Metabolic Pane l 14 (CMP) Reviewed date:06/20/2024 07:19:39 AM Interpretation: Performing Lab:[facility], [address] [place], [place] [id number], Phone - [phone], Director - MDJodry Notes/Report: Glucose 104 70-99 mg/dL H BUN 23 8-27 mg/dL Creatinine 1.35 0.57-1.00 mg/dL H eGFR 38 >59 mL/min/1.73 L BUN/Creatinine Ratio 17 12-28 Sodium 138 134-144 mmol/L Potassium 5.4 3.5-5.2 mmol/L H Chloride 100 96-106 mmol/L Carbon Dioxide, Total [...] (CBC) Reviewed date:06/20/2024 07:19:39 AM Interpretation: Performing Lab:[facility], [address] [place] [id number], Phone - [phone], Director - Shalom Notes/Report: WBC 6.1 3.4-10.8 x10E3/uL RBC 3.67 3.77-5.28 x10E6/uL L Hemoglobin 10.5 11.1-15.9 g/dL L Hematocrit 33.2 34.0-46.6 % L MCV 91 79-97 fL MCH 28.6 26.6-33.0 [...] % Immature Grans (Abs) 0.0 0.0-0.1 x10E3/uL Comprehensive Metabolic Pane l 14 (CMP) Reviewed date:04/28/2024 01:46:25 PM Interpretation: Performing Lab:[facility], [address] [place] [id number], Phone - [phone], Director - MDNoey Notes/Report: Glucose 67 70-99 mg/dL L BUN 31 8-27 mg/dL H Creatinine 1.25 0.57-1.00 mg/dL H eGFR 41 >59 mL/min/1.73 L BUN/Creatinine Ratio 25 12-28 Sodium 140 134-144 mmol/L Potassium 4.2 3.5-5.2 mmol/L Chloride 102 96-106 mmol/L Carbon Dioxide, Total 23 20-29 mmol/L Calcium 9.0 8.7-10.3 mg/dL Protein, Total 5.7 6.0-8.5 g/dL L Albumin 3.5 3.7-4.7 g/dL L Globulin, Total 2.2 1.5-4.5 g/dL Bilirubin, Total 0.3 0.0-1.2 mg/dL Alkaline Phosphatase 62 44-121 IU/L AST (SGOT) 21 0-40 IU/L ALT (SGPT) 24 0-32 IU/L Lipid Panel With Total Rayne sterol/HDL Ratio Reviewed date:04/28/2024 01:46:25 PM Interpretation: Performing Lab:[facility] [place], [address] [place], [place] [id number], Phone - [phone], Director - MDJodry Notes/Report: Cholesterol, Total 125 100-199 mg/dL Triglycerides 92 0-149 mg/dL HDL Cholesterol 52 >39 mg/dL VLDL Cholesterol Ayo 17 5-40 mg/dL LDL Chol Calc ([facility]) 56 0-99 mg/dL T. Chol/HDL Ratio 2.4 0.0-4.4 ratio T. Chol/HDL Ratio Men Women 1/2 Avg.Risk 3.4 3.3 Avg.Risk 5.0 4.4 2X Avg.Risk 9.6 7.1 3X Avg.Risk 23.4 11.0 Complete Blood Count With Di fferential With Reflex to Smear Review (CBC) Reviewed date:04/28/2024 01:46:24 PM Interpretation: Performing Lab:[facility], [address] [place] [address], [place], [place] [id number], Phone - [phone], Director - Shalom Notes/Report: WBC 6.9 3.4-10.8 x10E3/uL RBC 3.67 3.77-5.28 x10E6/uL L Hemoglobin 11.0 11.1-15.9 g/dL L Hematocrit 33.6 34.0-46.6 % L MCV 92 79-97 fL MCH 30.0 26.6-33.0 [...] % Immature Grans (Abs) 0.0 0.0-0.1 x10E3/uL Reason For Referral No Information Medications Medication SIG (Take, Route, Frequency, Duration) Notes Start Date End Date Status Tumeric Curcumin 500mg Tablet 1 tablet orally once a day Active Albuterol Sulfate HFA 108 (90 Base) MCG/ACT Aerosol Solution 1 puff as needed Inhalation every 4 hrs; Duration: 90 days 01/09/2024 Active Trelegy Ellipta 200-62.5-25 MCG/ACT Aerosol Powder Breath Activated 1 puff Inhalation Once a day Active Folic Acid 1 MG Tablet 1 tablet Orally Once a day; Duration: 90 days 01/19/2023 Active predniSONE 5 MG Tablet 1 tablet Orally Once a day Active rOPINIRole HCl 0.25 MG Tablet 1 tablet Orally twice a day; Duration: 90 days as directed bid po Active Olmesartan Medoxomil 20 MG Tablet 0.5 tablet Orally once daily; Duration: 100 days 03/15 tablet 07/16/2022 Active Metoprolol Succinate 25 mg tablet 0.5 tablets po daily; Duration: 100 days 03/15 tab qd Active Ipratropium-Albuterol 0.5-2.5 (3) MG/3ML Solution 3 mL as needed Inhalation every 6 hrs Active predniSONE 10 MG (21) Tablet Therapy Pack 1 tablet Orally Once a day Not-Taking Vitamin D (Ergocalciferol) 1.25 MG (42466 UT) Capsule 1 capsule Orally weekly; Duration: 90 days 06/24/2023 Active Albuterol Sulfate (2.5 MG/3ML) 0.083% Nebulization Solution 3 mL as needed Inhalation every 6 hrs 0.5mg/ml Active Cyanocobalamin 1000 MCG/ML Solution 1 mL Injection Monthly; Duration: 180 days Active Vasculera - Tablet as directed Orally 630mg once daily Active Tylenol PRN Active BD Integra Syringe 25G X 5/8 3 ML Miscellaneous as directed; Duration: 90 days USE DIRECTED prn Active Hydroxychloroquine Sulfate 300 MG Tablet Take 1.5 tablets Orally once a day; Duration: 90 days 09/07/2023 Active Immunizations Vaccine Route Administration Date Status Comme nts Fluad Vaccine, Quadrivalent PFS Unknown 01/01/2020 Administered Fluad Vaccine, Quadrivalent PFS Unknown 01/28/2021 Administered Influenza Vaccine Unknown 11/12/2021 Administered Pneumococcal Vaccine 23-Valent (PPV23) (PNEUMOVAX 23) Unknown 01/24/2008 Administered Prevnar 13 (PCV13) Unknown 06/11/2014 Administered Shingrix Unknown 01/10/2020 Administered Shingrix Unknown 06/13/2020 Administered Tetanus Diphtheria Pertussis Vaccine (Tdap) Unknown 01/01/2014 Administered Tetanus Toxoid, Reduced Diphtheria Toxoid, Acellular Pertussis Vaccine (Tdap) (Boostrix) IM Intramuscular 01/24/2023 Administered Social History Social History Other Social Factors: Social Info Question Answer Notes Caffeine Intake: Frequency: 1-2 cups per day Pets: Do you have any pets? dogs Home Health: Is the patient in a Home Health program? No Exercise: Frequency: other 5 days Driving Status: Does the patient drive? yes Home detector use: Type of detector(s) used? smoke det ectors Functional Status: Pt uses ambulatory assisted device( s): No Seatbelt Use: Uses seatbelt everytime? 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) Active confirmed Problem Vitamin B deficiency (57472470) Deficiency of other specified B group vitamins (E53.8) Active confirmed Ricky-[id number] 1144- Problem Vitamin D deficiency (64383494) Vitamin D deficiency, unspecified (E55.9) Active confirmed Ricky-[id number] 1144- Problem Tobacco user (409394858) Nicotine dependence, other tobacco product, uncomplicated (F17.290) Active confirmed Ricky-[id number] 1144- Problem Adjustment disorder (93237196) Adjustment disorder, unspecified (F43.20) Active confirmed Ricky-[id number] 1144- Problem Supraventricular tachycardia (5728189) Supraventricular tachycardia (I47.1) Active confirmed Ricky-162 1144- Problem Chronic obstructive pulmonary disease (00573400) Chronic obstructive pulmonary disease, unspecified (J44.9) Active confirmed Ricky-162 1144- Problem Fatty liver (936421612) Fatty (change of) liver, not elsewhere classified (K76.0) Active confirmed Ricky-162 1144- Problem Rheumatoid arthritis (22216535) Rheumatoid arthritis, unspecified (M06.9) Active confirmed Ricky-162 1144- Problem Anemia (982591901) Mild anemia (D64.9) Active confirmed Problem Bone density finding (059439129) Oth disrd of bone density and structure, unspecified site (M85.80) Active confirmed Ricky-162 1144- Problem Chronic kidney disease stage 3 (disorder) (336745545) Chronic kidney disease, stage 3 (moderate) (N18.3) Active confirmed Ricky-162 1144- Problem Fatigue (99279184) Other fatigue (R53.83) Active confirmed Ricky-162 1144- Problem Essential hypertension (23233351) Essential (primary) hypertension (I10) Active confirmed Ricky-162 1144- Problem Uncomplicated asthma (disorder) (172205276) Unspecified asthma, uncomplicated (J45.909) Active confirmed Ricky-162 1144- Problem Long-term current use of drug therapy (706509807) Other chcf (current) drug therapy (Z79.899) Active confirmed Ricky-162 1144- Problem 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 Problem Pulmonary hypertension (92123266) Pulmonary hypertension, unspecified (I27.20) Active confirmed Ricky-162 1144- Problem Immunodeficiency disorder (disorder) (631127433) 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 confirmed Problem 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 Lulu Lyon 02/28/2024 09:32:49 AM EST > Blood pressure diastolic 72 mm Hg 02/28/2024 Blo od pressure was taken on left arm, while sitting down, with both feet flat on the ground. Lulu yLon 02/28/2024 09:32:49 AM EST > Height 60 [...] > Encounters Encounter Location Date Provider Diagnosis [facility] at [address] [place] [address] [facility], [place] [id number] 01/09/2024 Paulo gN Chronic obstructive pulmonary disease, unspecified J44.9 ; Essential (primary) hypertension I10 ; Rheumatoid arthritis, unspecified M06.9 ; Immunodeficiency due to conditions classified elsewhere D84.81 ; Routine adult health maintenance Z00.00 and Rheumatoid arthritis, involving unspecified site, unspecified whether rheumatoid factor present M06.9 [facility] at [address] [place] [facility], [place] [phone] 01/02/2024 Paulo Ng Vitamin D deficiency , unspecified E55.9 [facility] at [address] [place] [address] [facility], [place] [phone] 01/24/2024 Paulo Ng Chronic obstructive pulmonary disease, unspecified J44.9 ; Essential (primary) hypertension I10 ; Rheumatoid arthritis, unspecified M06.9 ; Immunodeficiency due to conditions classified elsewhere D84.81 ; Routine adult health maintenance Z00.00 and Rheumatoid arthritis, involving unspecified site, unspecified whether rheumatoid factor present M06.9 [facility] at [address] [place] [facility], [place] [id number] 02/28/2024 Paulo Ng Chronic obstructive pulmonary disease, unspecified J44.9 ; Essential (primary) hypertension I10 ; Rheumatoid arthritis, unspecified M06.9 ; Immunodeficiency due to conditions classified elsewhere D84.81 ; Routine adult health maintenance Z00.00 and Rheumatoid arthritis, involving unspecified site, unspecified whether rheumatoid factor present M06.9 [facility] at [address] [place] [facility], [place] [id number] 04/05/2024 Paulo Ng Chronic obstructive pulmonary disease, unspecified J44.9 ; Essential (primary) hypertension I10 ; Rheumatoid arthritis, unspecified M06.9 ; Immunodeficiency due to conditions classified elsewhere D84.81 ; Routine adult health maintenance Z00.00 ; Rheumatoid arthritis, involving unspecified site, unspecified whether rheumatoid factor present M06.9 and Other chcf (current) drug therapy Z79.899 [facility] at [address] [phone] 03/05/2024 Paulo Hernandez [facility] at [address] [place] [facility], [place] [id number] 03/15/2024 Paulo Ng Rheumatoid arthritis , involving unspecified site, unspecified whether rheumatoid factor present M06.9 [facility] at [address] [place] [phone] 03/19/2024 Paulo Ng Chronic obstructive pulmonary disease, unspecified J44.9 [facility] at [address], [place] [id number] 05/09/2024 Paulo Ng Essential (primary) hypertension I10 Assessments Encounter Date Diagnosis (ICD Code) Assessment Notes Treatment Notes Treatment Clinical Notes Section Notes 01/09/2024 Chronic obstructive pulmonary disease, unspecified (ICD-10 - J44.9) [facility] [place] [facility] [id number]- Continue to follow with [employer]. 01/24/2024 Chronic obstructive pulmonary disease, unspecified (ICD-10 - J44.9) [id number]- Continue to follow with [employer]. 02/28/2024 Chronic obstructive pulmonary disease, unspecified (ICD-10 - J44.9) [id number]- Continue to follow with [employer]. 02/27 weaning down on predisone right now doing 02/28/2024 Essential (primary) hypertension (ICD-10 - I10) [id number]- Continue medications and home monitoring as directed. Continue low sodium diet with goal of <2g per day. Avoid stress. Avoid adding salt to food. Enjoy regular exercise like walking at least 30 minutes a day, five days a week. 04/05/2024 Chronic obstructive pulmonary disease, unspecified (ICD-10 - J44.9) [id number]- Continue to follow with [employer]. 02/27 weaning down on predisone right now doing 01/02/2024 Vitamin D deficiency, unspecified (ICD-10 - E55.9) 03/15/2024 Rheumatoid arthritis, involving unspecified site, unspecified whether rheumatoid factor present (ICD-10 - M06.9) 03/19/2024 Chronic obstructive pulmonary disease, unspecified (ICD-10 - J44.9) [facility] [place] [facility] [id number]- 05/09/2024 Essential (primary) hypertension (ICD-10 - I10) [facility] [place] [facility] [id number]- 04/05/2024 Essential (primary) hypertension (ICD-10 - I10) [facility] [place] [facility] [id number]- Continue medications and home monitoring as directed. Continue low sodium diet with goal of <2g per day. Avoid stress. Avoid adding salt to food. Enjoy regular exercise like walking at least 30 minutes a day, five days a week. 02/28/2024 Rheumatoid arthritis, unspecified (ICD-10 - M06.9) Rheum discontinued methotrexate due to increasing Cr. Seeing rheum in 2 days to discuss other treatment options. 01/24/2024 Essential (primary) hypertension (ICD-10 - I10) [facility] [place] [facility] [place]-[id number]- Continue medications and home monitoring as directed. Continue low sodium diet with goal of <2g per day. Avoid stress. Avoid adding salt to food. Enjoy regular exercise like walking at least 30 minutes a day, five days a week. 01/09/2024 Essential (primary) hypertension (ICD-10 - I10) [facility] [place] [facility] [place]-[id number]- Continue medications and home monitoring as directed. Continue low sodium diet with goal of <2g per day. Avoid stress. Avoid adding salt to food. Enjoy regular exercise like walking at least 30 minutes a day, five days a week. 01/09/2024 Rheumatoid arthritis, unspecified (ICD-10 - M06.9) Rheum discontinued methotrexate due to increasing Cr. Seeing rheum in 2 days to discuss other treatment options. 01/24/2024 Rheumatoid arthritis, unspecified (ICD-10 - M06.9) Rheum discontinued methotrexate due to increasing Cr. Seeing rheum in 2 days to discuss other treatment options. 04/05/2024 Rheumatoid arthritis, unspecified (ICD-10 - M06.9) Rheum discontinued methotrexate due to increasing Cr. Seeing rheum in 2 days to discuss other treatment options. 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 02/28/2024 Routine adult health maintenance (ICD-10 - Z00.00) 01/24/2024 Immunodeficiency due to conditions classified elsewhere (ICD-10 - D84.81) Due to COPD. 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 01/09/2024 Routine adult health maintenance (ICD-10 - Z00.00) 01/24/2024 Routine adult health maintenance (ICD-10 - Z00.00) 02/28/2024 Rheumatoid arthritis, involving unspecified site, unspecified whether rheumatoid factor present (ICD-10 - M06.9) 04/05/2024 Routine adult health maintenance (ICD-10 - Z00.00) 04/05/2024 Other bed bug exterminator (current) drug therapy (ICD-10 - Z79.899) 04/05/2024 Rheumatoid arthritis, involving unspecified site, unspecified whether rheumatoid factor present (ICD-10 - M06.9) 01/24/2024 Rheumatoid arthritis, involving unspecified site, unspecified whether rheumatoid factor present (ICD-10 - M06.9) 01/09/2024 Rheumatoid arthritis, involving unspecified site, unspecified whether rheumatoid factor present (ICD-10 - M06.9) Plan Of Treatment Future Test Test Name Order Date Vitamin B12 12/21/2022 Urinalysis with Microscopy (UA) 12/22/19 23 Complete Blood Count With Differential W ith Reflex to Smear Review (CBC) 12/21/2022 Vitamin D, 25-Hydroxy 12/21/2022 Lipid Panel With Total Cholesterol/HDL R atio 12/21/2022 TSH with Reflex to Free T4 12/21/2022 Comprehensive Metabolic Panel 14 (CMP) 1 Complete Blood Count With Differential W ith Reflex to Smear Review (CBC) 04/25/2023 Insurance Providers Payer Name Payer Address Payer Phone Subscriber Number Group Number Insured Name Patient Relationship to Insured Coverage Start Date Coverage End Date [id number] [employer] [facility] [address] [address] [place], [place] [id number] Gilda Mari Self - patient is the insured Medications Administered Medication Instructions Date of Administration Dosage Notes Cyanocobalamin 03/18/2023 1 mL cyanocobalamin 04/25/2023 1 mL cyanocobalamin 06/24/2023 1 mL Medical (General) History Surgical History Surgery Date(Month/Year) Colonoscopy In 01/26/2012 Hospitalization History Reason Date(Month/Year) Cough, COPD and pneumonia 05/2022 Multifocal pneumonia 2023
[2024-12-27 17:56] LABS: Alanine Aminotransferase 11 U/L (0-31); Aspartate Amino Transferase 24 U/L (5-31)
== END 2024-12-27 13:19 | disposition home or self-care (01) ==
LOC: HO.HKASLDS 13:18
PROVIDERS: PCP Internal Medicine; Visit Provider Internal Medicine Rheumatology
DX: M05.79 Rheumatoid arthritis with rheumatoid factor of multiple sites without organ or systems involvement (principal); Z79.899 Other long term (current) drug therapy; Z79.60 Long term (current) use of unspecified immunomodulators and immunosuppressants
CPT/HCPCS: 36415; 84450; 84460

== ENCOUNTER 2025-01-02 10:10 | Outpatient (AMB) | payer MEDICARE, SELFPAY ==
--- NOTE | 2025-01-02 10:12 | A.OFFVIS_ITS ---
Vital Signs 01/02/25 10:15 Height 4 ft 11 in Weight 142 lb 10.225 oz BMI 28.8 BP 120/70 Blood Pressure Location Rt brachial Position Sitting Pulse 64 Pulse Source Pulse Oximeter Pulse Oximetry (%) 97 Oxygen Delivery Method Room Air Intake Visit Reasons: 3 Months/MD Approved Intake Note: Patient presents today for RA follow up. Accompanied by: Self / Same As Patient Allergies latex Allergy (Verified 01/02/25 10:14) Rash Sulfa (Sulfonamide Antibiotics) Allergy (Verified 01/02/25 10:14) Rash HPI HPI 3 Months/MD Approved: Details: She was able to taper prednisone to prednisone 5mg daily. She is experiencing about 30 minutes of morning stiffness. No recent infections. She continues to experience lower extremity edema. She has not been consistent with wearing compression stockings daily. Left ankle is painful for a few weeks. She will be spending time in [place]. She was LIAM Stuart/Dr. Meek Lopez in [place], [place]. REPLACED BY [facility] Medical History Endometriosis Vitamin B 12 deficiency Restless leg syndrome Multiple pulmonary nodules Lymphopenia Hypertension Hyperlipidemia Surgical History H/O: hysterectomy History of bunionectomy Family History Mother Heart disease Other Pancreatic cancer Physical Exam Vital Signs: Last Vital Signs Pulse 64 01/02/25 10:15 BP 120/70 01/02/25 10:15 Pulse Ox 97 01/02/25 10:15 Oxygen Delivery Method Room Air 01/02/25 10:15 BMI result Body Mass Index 28.8 Const Other: General: Comfortable CVS: RRR Respiratory: clear to auscultation bilaterally. Good respiratory effort Skin: No lesions seen MSK: No synovitis. Heberden nodes present. Normal range of motion of upper extremities. Good external rotation of bilateral hips. She has tenderness to palpate left lateral ankle. Bilateral lower extremity edema left worse than right+ pitting Assessment & Plan Assessment & Plan (1) Rheumatoid arthritis: Comment: Inflammatory arthritis is controlled on Humira, HCQ and low dose prednisone. After total hysterectomy she has been able to taper prednisone to 5 mg daily. 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 History of CKD. Triggered by COVID-19 infection 09/2021. She was previously treated with double therapy HCQ and MTX. 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 Hydroxychloroquine dose was reduced from 300 mg daily to 200 mg daily due to worsening kidney function. She previously required bilateral knee cortisone injections and left wrist cortisone injection (12/22/2021). Prednisone 5 mg daily started ATC 12/2023 Dr. Arita due to uncontrolled RA. Humira 07/24/2024- Code(s): M06.9 - Rheumatoid arthritis, unspecified Category: Medical Qualifiers: Rheumatoid arthritis location: multiple sites Rheumatoid factor presen ce: with rheumatoid factor Qualified Code(s): M05.79 - Rheumatoid arthritis with rheumatoid factor of multiple sites without organ or systems involvement Plan: She will reduce prednisone to 2.5 mg daily starting tomorrow for 2 weeks then discontinue prednisone Continue Humira 40 mg subcutaneous injection every 14 days Labs for drug monitoring on high-risk medication up-to-date 12/2024. I gave her lab requisition for her to have labs done when she is in [place] for drug monitoring. She will call office if she needs refills after lab results are reviewed. Continue hydroxychloroquine 200 mg daily. 09/2024 eye exam no evidence of Plaquenil associated maculopathy on clinical exam. 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 Visual field white 08/2023 and 09/2024 was stable to previous. 08/2024 OCT WNL. Wear compression stockings for lower extremity edema Return to clinic July 2024 when patient returns from [place] (2) Left ankle pain: Comment: Suspect tendinopathy is contributing to left ankle pain. We discussed conservative management. Code(s): M25.572 - Pain in left ankle and joints of left foot Category: Medical Plan: X-ray left ankle ordered PT ordered for strengthening Return to clinic july 2025 when patient returns from [place] (3) Other jail (current) drug therapy: Code(s): Z79.899 - Other jail (current) drug therapy Category: Medical Plan: See above Orders: Orders Complete Blood Count Auto Diff 01/02/25 Z79.899 - Other long term care social worker (current) drug therapy Creatinine 01/02/25 Z79.899 - Other jail (current) drug therapy C Reactive Protein 01/02/25 Z79.89 - Other long term care social worker (current) drug therapy Erythrocyte Sedimentation Rate 01/02/25 Z79.899 - Other jail (current) drug therapy Erythrocyte Sedimentation Rate 3 Months Z79.89 - Other jail (current) drug therapy XR ankle LT min 3V 01/02/25 M25.572 - Pain in left ankle and joints of left foot PT Evaluation and Treatment 01/02/25 M25.572 - Pain in left ankle and joints of left foot Aspartate Amino Transferase 3 Months Z79. - Other jail (current) drug therapy C Reactive Protein 3 Months Z79.89 - Other long term care social worker (current) drug therapy Complete Blood Count Auto Diff 3 Months Z. - Other jail (current) drug therapy Creatinine 3 Months Z79. - Other jail (current) drug therapy Alanine Aminotransferase 3 Months Z79. - Other jail (current) drug therapy Medications: Changed From adalimumab (Humira(CF)) inject one - 40 mg/0.4 mL syringe every 2 weeks subcut Schedule nurse teaching visit for 1st dose administration in office. Labs due in 4 weeks after first dose. 2 ea 2RF To adalimumab (Humira(CF)) inject one - 40 mg/0.4 mL syringe every 2 weeks subcut 2 ea 5RF Refilled hydroxychloroquine 200 mg PO DAILY 90 tabs 3RF M05.79 - Rheumatoid arthritis with rheumatoid factor of multiple sites without organ or systems involvement Coding Level of Care Code Est Pt Level 4 (42189) Complex EM visit Add On G2211 Diagnoses Rheumatoid arthritis involving multiple sites with positive rheumatoid factor M05.79 Rheumatoid arthritis location: multiple sites Rheumatoid factor presence: with rheumatoid factor Left ankle pain M25.572 Other jail (current) drug therapy Z.
[2025-01-02 10:15] VITALS: BP 120/70; PULSE 64; O2SAT 97; BMI 28.8
== END 2025-01-02 11:22 | disposition home or self-care (01) ==
LOC: HO.RHES 10:11
PROVIDERS: PCP Internal Medicine; Visit Provider Internal Medicine Rheumatology
DX: M05.79 Rheumatoid arthritis with rheumatoid factor of multiple sites without organ or systems involvement (principal); M25.572 Pain in left ankle and joints of left foot; Z79.899 Other long term (current) drug therapy
CPT/HCPCS: 99214; G2211

== ENCOUNTER 2025-01-02 10:10 | Outpatient (REF) | payer MEDICARE, SELFPAY ==
--- OUTSIDE RECORDS SUMMARY | 2023-10-19 07:00 | XMS_ITS ---
Author Organization [facility] [employer] Address [address] [place] [address] [place] [address] Care Team Providers Care Director Product Management Name Role Phone Paulo Ng MD Primary Care Provider [place] Serena READ [phone] REASON FOR VISIT telehealth follow up Encounters Encounter Location Date Provider Diagnosis [facility] [address] [place], [place] [id number] 10/19/2023 Serena Hackett Plan Of Treatment No Information Progress Notes * Gilda CHAN ADOB:1935 (89 yo F)Acc No.[id number]:10/19/2023 UNLOCKED PROGRESS NOTE Patient: Gilda Resendez Provider: Brenda Hackett DO :1935 A ge:88 Y S ex:Female Date:10/19/2023 Address:[address], [id number] Pcp:Paulo Ng MD Subjective: * Chief Complaints: * T elehealth follow up Objective: Past Vitals:* 10/14/2023 BP:sittin/74mm Hg, RR: Not Taken - Declined by Patient, Pulse: Not Taken - Declined by Patient, Temp: Not Taken - Declined by Patient, Ht:60in, Wt: Not Taken - Declined by Patient, Oxygen Sat: Not Taken - Declined by Patient, Pain Scale:01-10 * 08/17/2023 BP:129/60mm Hg, Pulse:69/min , Oxygen Sat:94% * 07/13/2023 BP:sittin/60mm Hg, RR:1 6/min, Pulse:68/min, Temp:98.1F, Ht:60in, Wt:150lbs, BMI:29.29Index, Oxygen Sat:95%, Pain Scale:01-10 * 07/07/2023 BP:sittin/74mm Hg, RR:1 6/min, Pulse:78/min, Temp:98.6F, Ht:60in, Wt:150lbs, BMI:29.29Index, Oxygen Sat:98%, Pain Scale:01-10 * 06/24/2023 BP:124/66mm Hg, RR:16/min, P ulse:65/min, Temp:96.7F, Ht:60in, Wt:148lbs, BMI:28.9Index, Oxygen Sat:99%, Pain Scale:01-10 * Electronic signature of Jimmy Hackett DO, DO on 01/02/2025 at 03:46 PM EDT Sign off status: Pending * Provider: Brenda Hackett DO Date: 0 10/19/2023 Generated for Phani elkins/Marcus/Dominique on: 1 03:46 PM EDT
--- NOTE | ~2025-01-02 | XR_ITS ---
EXAMINATION: XR ANKLE, LEFT CLINICAL INFORMATION: M25.572 - Pain in left ankle and joints of left foot COMPARISON: None available. TECHNIQUE: AP, lateral, and mortise views of the left ankle. FINDINGS: Edema pattern in the soft tissues of the medial lateral malleolus without subcutaneous emphysema. No acute cortical disruption or gross malalignment. No lytic or blastic lesions. Small exostosis at the Achilles tendon insertion. XR/XR ankle LT min 3V IMPRESSION: Edema pattern, bimalleolar. No acute fracture or dislocation. Enthesopathy, Achilles tendon. Electronically signed by: Lico Enrique MD 01/02/2025 02:23 PM EDT
--- OUTSIDE RECORDS SUMMARY | 2025-01-02 15:47 | XMS_ITS | Clinical Summary ---
Author Organization [facility] Address [address] [place] [address] Phone Care Team Providers Care Celebrity Manager Name Role Phone Anjali Mcknight MD Primary Care Provider [phone] Allergies Active Allergy Reactions Criticality Noted [...] 12/13/2024 12:15 PM EDT Nutrition Nutrition Department, [facility] [address] [place] [address] Dee Morales MD Prentice, Elizabeth, LDN Dietary counseling and surveillance (Primary Dx) 11/07/2024 10:47 AM EDT - 11/07/2024 11:59 PM EDT Hospital Encounter Department of Radiation Oncology [address] [place] [address] Hammad Larson MD Discharge Disposition: Home or Self Care 11/07/2024 Radiation Completion Encounter Department of Radiation Oncology [address] [place] [address] Hammad Larson MD 11/02/2024 4:07 PM EDT - 11/02/2024 11:59 PM EDT Hospital Encounter Department of Radiation Oncology [address] [place] [address] Hammad Larson MD Franco, Idalid, MD, MPH Discharge Disposition: Home or Self Care 10/31/2024 10:54 AM EDT - 10/31/2024 11:59 PM EDT Hospital Encounter Department of Radiation Oncology [address] [place] [address] Hammad Larson MD Discharge Disposition: Home or Self Care 10/31/2024 10:48 AM EDT - 10/31/2024 10:53 AM EDT Hospital Encounter [facility] Molecular DX Lab LMM [address] [place] [address] Discharge Disposition: Home or Self Care 10/30/2024 Orders Only [facility] Anatomic Pathology [address] [place], [place] [phone] Luciana Irizarry MD Endometrial carcinoma (Primary Dx) 10/23/2024 8:42 AM EDT - 10/23/2024 11:59 PM EDT Hospital Encounter Department of Radiation Oncology [address] [place] [address] Hammad Larson MD Discharge Disposition: Home or Self Care 10/18/2024 Telephone [facility], [facility], [address], [address] [place] [address] Cayla Sagastume RN Care Coordination 10/18/2024 Orders Only [facility], [facility], [address], [address] [place] [address] Meron White MD 10/05/2024 10:00 AM EDT Office Visit [facility], [facility], [address], [address] [place] [address] Meron White MD Endometrial cancer (Primary Dx) [...] Contact Info) Description 11/07/2024 Procedure Pass [facility], [facility], [place] [address] [facility], Floor [address] [place] [address] 11/07/2024 Procedure Pass [facility], [facility] [place] [address] [facility], [address] [place] [address] 02/12/2025 12:30 PM EST Appointment [facility], [facility], [place] [address] [facility], [address] [place] [address] Hammad Larson MD [address] [place] [address] [email or web address] 02/12/2025 2:00 PM EST Appointment Department of Radiation Oncology [address] [place] [address] Hammad Larson MD [address] [place] [address] [email or web address] Health Maintenance Due Date Last Done Comments [...] REPLACEMENT [employer] MEDICARE REPLACEMENT Care Teams Celebrity Manager Relationship Specialty Start Date End Date Anjali Mcknight MD [address] [place] [address] PCP - General Internal Medicine 12/14/24 Additional Source Comments The information contained in this document represents components of the legal health record. It is not the complete legal health record.[facility]
--- OUTSIDE RECORDS SUMMARY | 2025-01-02 15:47 | XMS_ITS | Patient Health Record ---
Author Organization [facility] Address [address] [place] [address] Care Team Providers Care Driver/Merchandiser Name Role Phone Hernandez CERVANTES, [place] Primary Care Provider Allergies Allergen (clinical drug ingredient) Drug/Non Drug Allergy documented on EMR Reaction Allergy Type Onset Date Status Latex Latex Unknown Allergy 03/02/2022 Active Substance with sulfonamide structure and antibacterial mechanism of action (substance) Sulfa Antibiotics Unknown Drug Allergy Active Results Component Value Reference Range Flag Notes Lipid Panel With Total Rayne sterol/HDL Ratio Reviewed date:06/20/2024 07:19:39 AM Interpretation: Performing Lab:[facility], [address] [place] [id number], Phone - [phone], Director - MDElsadry Notes/Report: Cholesterol, Total 131 [...] 07:19:39 AM Interpretation: Performing Lab:[facility], [address] [place], [place] [id number], Phone - [phone], Director - MDJodry Notes/Report: Glucose 104 70-99 [...] Reviewed date:06/20/2024 07:19:39 AM Interpretation: Performing Lab:[facility], [address] [place] [id number], Phone - [phone], Director - Shalom Notes/Report: WBC 6.1 3.4-10.8 [...] (CMP) Reviewed date:04/28/2024 01:46:25 PM Interpretation: Performing Lab:[email or web address], [address] [place] [id number], Phone - [phone], Director - MDNoey Notes/Report: Glucose 67 70-99 [...] Ratio Reviewed date:04/28/2024 01:46:25 PM Interpretation: Performing Lab:[email or web address], [address] [place], [place] [id number], Phone - [phone], Director - MDJodry Notes/Report: Cholesterol, Total 125 100-199 mg/dL Triglycerides 92 0-149 mg/dL HDL Cholesterol 52 >39 mg/dL VLDL Cholesterol Ayo 17 5-40 mg/dL LDL Chol Calc ([facility]) 56 0-99 mg/dL T. Chol/HDL Ratio 2.4 0.0-4.4 ratio T. Chol/HDL Ratio Men Women 1/2 Avg.Risk 3.4 3.3 Avg.Risk 5.0 4.4 2X Avg.Risk 9.6 7.1 3X Avg.Risk 23.4 11.0 Complete Blood Count With Di fferential With Reflex to Smear Review (CBC) Reviewed date:04/28/2024 01:46:24 PM Interpretation: Performing Lab:[facility], [address] [place] [address], [place], [place] [id number], Phone - [phone], Director - Shalom Notes/Report: WBC 6.9 3.4-10.8 [...] day Not-Taking Vitamin D (Ergocalciferol) 1.25 MG (96976 UT) Capsule 1 capsule Orally weekly; Duration: [...] Status W/U Status Risk Notes Problem Leukopenia (81182403) Decreased white blood cell count, unspecified (D72.819) Active confirmed Ricky-162 1144- Problem 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 confirmed Problem Vitamin B deficiency (49320374) Deficiency of other specified B group vitamins (E53.8) Active confirmed Ricky-162 1144- Problem Vitamin D deficiency (81651967) Vitamin D deficiency, unspecified (E55.9) Active confirmed Ricky-162 1144- Problem Tobacco user (413392853) Nicotine dependence, other tobacco product, uncomplicated (F17.290) Active confirmed Ricky-162 1144- Problem Adjustment disorder (75069984) Adjustment disorder, unspecified (F43.20) Active confirmed Ricky-162 1144- Problem Supraventricular tachycardia (1011773) Supraventricular tachycardia (I47.1) Active confirmed Ricky-162 1144- Problem Chronic obstructive pulmonary disease (33803297) Chronic obstructive pulmonary disease, unspecified (J44.9) Active confirmed Ricky-162 1144- Problem Fatty liver (564943697) Fatty (change of) liver, not elsewhere classified (K76.0) Active confirmed Ricky-162 1144- Problem Rheumatoid arthritis (81015227) Rheumatoid arthritis, unspecified (M06.9) Active confirmed Ricky-162 1144- Problem Anemia (885337428) Mild anemia (D64.9) Active confirmed Problem Bone density finding (849213100) Oth disrd of bone density and structure, unspecified site (M85.80) Active confirmed Ricky-162 1144- Problem Chronic kidney disease stage 3 (disorder) (229590393) Chronic kidney disease, stage 3 (moderate) (N18.3) Active confirmed Ricky-162 1144- Problem Fatigue (16403708) Other fatigue (R53.83) Active confirmed Ricky-162 1144- Problem Essential hypertension (98687454) Essential (primary) hypertension (I10) Active confirmed Ricky-162 1144- Problem Uncomplicated asthma (disorder) (959650454) Unspecified asthma, uncomplicated (J45.909) Active confirmed Ricky-162 1144- Problem Long-term current use of drug therapy (303142511) Other group home (current) drug therapy (Z79.899) Active confirmed Ricky-162 1144- Problem 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) (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) 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 Problem Pulmonary hypertension (47467965) Pulmonary hypertension, unspecified (I27.20) Active confirmed Ricky-162 1144- Problem Immunodeficiency disorder (disorder) (076417265) 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 confirmed Problem 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 confirmed Problem Chronic kidney disease stage 3A (disorder) (788588014) Chronic kidney disease, stage 3a (N18.31) Active confirmed Ricky-162 1144- Problem Rheumatoid arthritis (56936564) Rheumatoid arthritis, involving unspecified site, unspecified whether rheumatoid factor present (M06.9) Active confirmed Problem Chronic kidney disease stage 3B (disorder) (777338478) Stage 3b chronic kidney disease (CKD) (N18.32) [...] Encounter Location Date Provider Diagnosis [facility] [address] [place], [place] [id number] 01/09/2024 Paulo Ng Chronic obstructive pulmonary disease, unspecified J44.9 ; Essential (primary) hypertension I10 ; Rheumatoid arthritis, unspecified M06.9 ; Immunodeficiency due to conditions classified elsewhere D84.81 ; Routine adult health maintenance Z00.00 and Rheumatoid arthritis, involving unspecified site, unspecified whether rheumatoid factor present M06.9 [facility] [address] [place], [place] [phone] 01/24/2024 Paulo Ng Chronic obstructive pulmonary disease, unspecified J44.9 ; Essential (primary) hypertension I10 ; Rheumatoid arthritis, unspecified M06.9 ; Immunodeficiency due to conditions classified elsewhere D84.81 ; Routine adult health maintenance Z00.00 and Rheumatoid arthritis, involving unspecified site, unspecified whether rheumatoid factor present M06.9 [facility] [address] [place], [place] [id number] 02/28/2024 Paulo Ng Chronic obstructive pulmonary disease, unspecified J44.9 ; Essential (primary) hypertension I10 ; Rheumatoid arthritis, unspecified M06.9 ; Immunodeficiency due to conditions classified elsewhere D84.81 ; Routine adult health maintenance Z00.00 and Rheumatoid arthritis, involving unspecified site, unspecified whether rheumatoid factor present M06.9 [facility] [address] [place], [place] [phone] 04/05/2024 Paulo Ng Chronic obstructive pulmonary disease, unspecified J44.9 ; Essential (primary) hypertension I10 ; Rheumatoid arthritis, unspecified M06.9 ; Immunodeficiency due to conditions classified elsewhere D84.81 ; Routine adult health maintenance Z00.00 ; Rheumatoid arthritis, involving unspecified site, unspecified whether rheumatoid factor present M06.9 and Other group home (current) drug therapy Z79.899 [facility] [address] [place], [place] [id number] 03/05/2024 Paulo Jenningslinek [facility] [address] [place], [place] [phone] 03/15/2024 Paulo Jenningslinek Rheumatoid arthritis , involving unspecified site, unspecified whether rheumatoid factor present M06.9 [facility] [address] [place] [place], [place] [phone] 03/19/2024 Paulo Jenningslinek Chronic obstructive pulmonary disease, unspecified J44.9 [facility] [address] [place], [place] [phone] 05/09/2024 Paulo Jenningslinek Essential (primary) hypertension I10 Assessments Encounter Date Diagnosis (ICD Code) Assessment Notes Treatment Notes Treatment Clinical Notes Section Notes 01/09/2024 Chronic obstructive pulmonary disease, unspecified (ICD-10 - J44.9) [facility] [id number]- Continue to follow with Supervisor [employer]. 01/24/2024 Chronic obstructive pulmonary disease, unspecified (ICD-10 - J44.9) [id number]- Continue to follow with [employer]visor [employer]. 02/28/2024 Chronic obstructive pulmonary disease, unspecified (ICD-10 - J44.9) [id number]- Continue to follow with [employer]visor [employer]. 02/27 weaning down on predisone right now doing 02/28/2024 Essential (primary) hypertension (ICD-10 - I10) [facility] [place]-[id number]- Continue medications and home monitoring as directed. Continue low sodium diet with goal of <2g per day. Avoid stress. Avoid adding salt to food. Enjoy regular exercise like walking at least 30 minutes a day, five days a week. 04/05/2024 Chronic obstructive pulmonary disease, unspecified (ICD-10 - J44.9) [id number]- Continue to follow with [employer]. 02/27 weaning down on predisone right now doing 03/15/2024 Rheumatoid arthritis, involving unspecified site, unspecified whether rheumatoid factor present (ICD-10 - M06.9) 03/19/2024 Chronic obstructive pulmonary disease, unspecified (ICD-10 - J44.9) [facility] [place][id number]- 05/09/2024 Essential (primary) hypertension (ICD-10 - I10) [facility] [place]-[id number]- 04/05/2024 Essential (primary) hypertension (ICD-10 - I10) [facility] [place]-[id number]- Continue medications and home monitoring as directed. [...] 01/24/2024 Essential (primary) hypertension (ICD-10 - I10) [facility] [place]-[id number]- Continue medications and home monitoring as directed. Continue low sodium diet with goal of <2g per day. Avoid stress. Avoid adding salt to food. Enjoy regular exercise like walking at least 30 minutes a day, five days a week. 01/09/2024 Essential (primary) hypertension (ICD-10 - I10) [facility] [place]-[id number]- Continue medications and home monitoring as directed. [...] (ICD-10 - D84.81) Due to COPD. 04/05/2024 Rheumatoid arthritis, unspecified (ICD-10 - M06.9) [...] health maintenance (ICD-10 - Z00.00) 04/05/2024 Rheumatoid arthritis, involving unspecified site, unspecified whether rheumatoid factor present (ICD-10 - M06.9) 04/05/2024 Other group home (current) drug therapy (ICD-10 - Z79.899) 01/24/2024 Rheumatoid arthritis, involving unspecified site, unspecified whether rheumatoid factor present (ICD-10 - M06.9) 01/09/2024 Rheumatoid arthritis, involving unspecified site, unspecified whether rheumatoid factor present (ICD-10 - M06.9) Plan Of Treatment Future Test Test Name Order Date Vitamin B12 12/21/2022 Urinalysis with Microscopy (UA) 12/22/19 Complete Blood Count With Differential W ith [...] Insured Coverage Start Date Coverage End Date [id number] [employer] [facility] [address] [address] [place], [place] [phone] [id number] Gilda Mari Self - patient is the insured Medications Administered Medication Instructions Date of Administration Dosage Notes Cyanocobalamin 03/18/2023 1 mL cyanocobalamin 04/25/2023 1 mL cyanocobalamin 06/24/2023 1 mL Medical (General) History Surgical History Surgery Date(Month/Year) Colonoscopy In 01/26/2012 Hospitalization History Reason Date(Month/Year) Cough, COPD and pneumonia 05/2022 Multifocal pneumonia 2023
--- OUTSIDE RECORDS SUMMARY | 2025-01-02 15:47 | XMS_ITS ---
Author Organization [facility] Address [address] [place] [address] Phone Care Team Providers Care Statistical Machine Mechanic Name Role Phone Anjali Mcknight MD Primary Care Provider [phone] Active Problems Problem Noted Date Diagnosed [...]
--- OUTSIDE RECORDS SUMMARY | 2025-01-02 15:47 | XMS_ITS | Clinical Summary ---
Author Organization [facility] Address [address] [place] [address] Care Team Providers Care Occupational Health Nurse Manager Name Role Phone Unavailable Primary Care Provider [...] patient's age to complete this topic Insurance [facility]
--- OUTSIDE RECORDS SUMMARY | 2025-01-02 15:47 | XMS_ITS | Data Portability ---
Author Organization [place] - [facility] [employer], [facility], [facility] Address [address] [place] [address] Care Team Providers Care Resource Coordinator Name Role Phone EVGENY RODRIGUEZ Primary Care Provider EVGENY RODRIGUEZ Referring Provider EVGENY RODRIGUEZ Senior Account Manager RAJIV CARDONA Primary Care Provider [phone] Assessment No assessment recorded. Plan of Treatment Reminders Order Date Submit Date Provider Last Modified By Organization Details Last Modified Time Details Appointments None record ed. Lab None record ed. Referral pulmon ologis t referr al 2023 024 marco Brian, [address] [facility], [place], [address], 4 16:11:05 Procedures pulmon venu stress test, simple (PROC) 2021 022 tchadha In-House Test, For Internal Use Only, Do Not Delete/merge, [id number] 11:54:35 Surgeries None record ed. Imaging XR, chest, [address] [facility] Services, [facility], All Locations, [place], [address], 4 19:53:31 CT, chest, w/o contra st 2022 024 [facility] Radiology [facility] [address], [address], [place], [address], 4 15:17:30 CT, chest, w/o contra st - PLEASE CALL RAMY Leonardo TO [place] [facility]NOR APPT THANK YOU [address] [facility] Services, [facility], All Locations, [place], [address], 4 10:49:10 US, echoca rdiogr am [address] [facility], [facility], All Locations, [place], [address], 18:14:33 Medication Orders torsem tea 10 mg tablet 2023 024 [facility], [address], [place], [address], 13:10:13 Patient TargetsNo targets recorded. Patient Instructions Encounter Date Encounter Id Patient Instructions Last Modified By Organization Details Last Modified Time 01/26/2022 [id number] complete PFT w/ post bronchodilator spirometry* JONNATHAN Not available 01/31/2023 08:01:25 Patient understands instructions and will seek medical attention if symptoms worsen as directed. latoya Not available 01/21/2022 16:11:09 06/18/2022 [id number] Patient understands instructions and will seek medical attention if symptoms worsen as directed. [email or web address] Not available 06/10/2022 13:09:06 02/07/2023 [id number] Patient understands instructions and will seek medical attention if symptoms worsen as directed. [email or web address] Not available 02/02/2023 09:01:25 07/08/2023 [id number] pneumonia: care instructions tchadha Not available 07/08/2023 13:10:13 Patient understands instructions and will seek medical attention if symptoms worsen as directed. [email or web address] Not available 07/06/2023 10:35:56 07/19/2023 [id number] Patient understands instructions and will seek medical attention if symptoms worsen as directed. [email or web address] Not available 07/13/2023 10:35:20 Reason for Referral Senior Account Manager Referral for C hronic obstructive pulmonary disease [...] For Internal Use Only, Do Not Delete/merge, [id number] 01/14/2022 10:05:52 01/15/20 22 01/14/2022 CT, chest [...] Gareth Segovia, Homero willson Sign Date: [id number] [facility] All Locations, [place], [address], 02/03/2024 19:42:38 01/26/20 22 01/19/2022 compl ete PFT w/ post [facility] hodil ator ar metry * No observ ation record ed. tchadha Not Available 2021 08:31:12 02/08/20 22 02/03/2022 , echo ardio gram No observ ation record ed. [id number] [facility] All Locations, [place], [address], 02/03/2024 20:31:07 01/22/2001/18/2023 CT, chest , w/o [...] abnorm alitie s in the lung COMPAR RIHC:1 03/16/19 22 FINDIN GS: The thorac ic inlet, axilla , and superf icial soft tissue s of the chest exhibi t no eviden ce of a signif icant pathol ogic proces s. Modera te daam ry artery calcif icatio ns are eviden [...] Signed By: Rolo Walter Sign Date: [id number] [facility] All Locations, [place], [address], 02/03/2024 19:39:04 02/01/20 23 01/25/2023 compl ete PFT w/ post [facility] hodil ator ar metry * No observ ation record ed. tchadha In-House Test For Internal Use Only, Do Not Delete/merge, [id number] 01/31/2023 09:53:43 06/01/19 24 05/24/2023 CT, chest [...] Note: The [employer], [facility] and the [place] preven tative servic [...] Certif ied Radiol ogist Sign Date: tchadha [facility] Services [facility] All Locations, [place], [address], 07/18/2023 20:53:53 Result Notes Documentation Provider Name [...] Rolo Garcia Sign Date: 21-JAN-23 Not Available [facility] 02/03/2024 20:06:10 Xr, Chest, 2 View [...] correlation for bronchitis is recommended. Note: The [employer], CMS and the [place] preventative services task force now approve CT low-dose chest screening in the following patients: - Age 55-77 who currently smoke or who have quit within the last 15 years - Asymptomatic patients with a [id number]-[id number] history of smoking Electronically Signed By: Kale Marmolejo D.O., Board Certified Radiologist Sign Date: 18-JUL-23 Evgeyn Rodriguez MD [address], [address], [facility], [facility] 07/18/2023 20:53:53 Problems Name Problem SNOMED Code Status Onset Date Resolution Date Notes Provider Name and Address Organization Details Recorded Time Pneumoni a 240237946 Completed 07/19/2023 Arnold Paulino Jr [facility], [facility] 12:50:37 Disorder of bone and articula r cartilag e 313694441 Completed 07/19/2023 Arnold Paulino Jr [facility], [facility] 12:50:37 Dyspnea 935663329 Completed 07/19/2023 Arnold Paulino Jr [facility], [facility] 12:50:37 Disorder of lipid metaboli sm 006576771 Completed 07/19/2023 Arnold Paulino Jr [facility], [facility] 12:50:37 Osteopen ia 037243906 Completed 07/19/2023 Arnold Paulino Jr [facility], [facility] 12:50:37 Vitamin D deficien cy 04232129 Completed 07/19/2023 Arnold Paulino Jr [facility], [facility] 12:50:37 Lighthea dedness 494893074 Completed 07/19/2023 Arnold Paulino Jr [facility], [facility] 12:50:37 Foot pain 54683177 Com[facility]19[facility]2023 [facility] 12:50:37 Pain of hip region 61268052 Completed 07/19/2023 Arnold Paulino Jr null, [facility], [facility] 4 12:50:37 Tobacco dependen ce syndrome 73293344 Completed 07/19/2023 Arnold Paulino Jr null, [facility], [facility] 4 12:50:37 Chronic obstruct [place] pulmonar y disease 78461993 Completed 01/09/2020 MD Maria A Jamison [address], [place], [address], [facility], [facility] 2 10:17:03 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 615325670 Completed 01/26/2020 MD Maria A Jamison [address], [place], [address], [facility] Physician [facility], [facility] 0 18:02:26 Urinary tract infectio us disease 29358470 Completed 01/09/2020 MD Maria A Jamison [address], [place], [address], [facility], [facility] 0 07:09:26 Hyperten sive disorder 17592006 Completed 01/26/2020 MD Maria A Jamison [address], [place], [address], [facility] Physician [facility], [facility] 2 10:17:02 Gastroes ophageal reflux disease 177575529 Completed 01/26/2020 MD Maria A Jamison [address], [place], [address], [facility], [facility] 0 18:02:04 Patient encounte r status 810165962 Completed 01/09/2020 MD Maria A Jamison [address], [place], [address], [facility], [facility] 0 07:07:40 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 ON B12 SHOTS: CARDONAMoises Magallonmonico quintanilla, [facility] Physician [facility], [facility] 3 13:08:04 Allergic rhinitis 43862663 Active [facility] 3 13:08:06 Isidro elliott 231697580 Active SEEN ON CTC Arnold Perezjohn [facility], [facility] 3 13:08:04 Multiple nodules of lung 003078781 Completed 201507/19/2023 Arnold Perezakash Mcfadden [facility] 4 12:50:37 Disorder of vitamin B12 187657791 Completed 201507/19/2023 [facility] 4 12:50:37 Elevated blood-pr essure reading without diagnosi s of hyperten sarai 028205900 Completed 201607/19/2023 [facility] 4 12:50:37 Essentia l hyperten sarai 62649128 Completed 201607/19/2023 [facility] 4 12:50:37 Venous varices 607493321 Completed 201707/19/2023 [facility] 4 12:50:37 Cough 25379580 Completed 201707/19/2023 [facility] 4 12:50:37 Orthosta tic hypotens ion 35980265 Completed 201707/19/2023 [facility] 4 12:50:37 Dizzines s 328453775 Completed 201707/19/2023 [facility] 4 12:50:37 Vertigo 228744847 Completed 201707/19/2023 Arnold quintanilla, [facility] Physician [facility], [facility] 4 12:50:37 Pulmonar y hyperten sarai 46901248 Com[facility] 201707/19/2023 [facility], [facility] 4 12:50:37 Syncope 361875581 Completed 201707/19/2023 Arnold quintanilla, [facility] Physician [facility], [facility] 4 12:50:37 Supraven tricular tachycar jad 2446187 Completed 201807/19/2023 Arnold quintanilla, [facility], [facility] 4 12:50:37 Leukopen ia 70101560 Completed 201807/19/2023 Arnold Paulino Jr [facility], [facility] 4 12:50:37 Serum creatini ne above referenc e range 534052357 Completed 201807/19/2023 Arnold quintanilla, [facility], [facility] 4 12:50:37 Cyst of kidney 403110467 Completed 201907/19/2023 Arnold Paulino Jr [facility], [facility] 4 12:50:37 Gastro-e sophagea l reflux disease with esophagi tis 541930227 Active 2019 Arnold quintanilla, [facility], [facility] 3 13:08:04 Essentia l hyperten sarai 39349639 Completed 201901/26/2021 Arnold quintanilla, [facility] Physician [facility], [facility] 4 12:50:37 Chronic obstruct [place] pulmonar y disease 87874855 Active 2019 MODERATE ........ 54%..... ...20 pk yrs...QU IT 1976 Evgeny Rodriguez MD [address] [address], [place], [address], [facility], [facility] 2 10:17:03 Steatoti c liver disease 120908442 Completed 202007/19/2023 Arnold Paulino Jr [facility], [facility], [facility] 4 12:50:37 COVID-19 043980797 Completed 202007/19/2023 Arnold Paulino Jr [facility], [facility], [facility] 4 12:50:37 Hyperten sive disorder 50891305 Active 2020 Arnold Paulino Jr [facility], [facility], [facility] 3 13:08:05 Rheumato id arthriti s 08602210 Active 2021 ON PREDNISO NE...... Arnold Paulino Jr [facility], [facility], [facility] 3 13:08:06 Diffuse intersti tial pulmonar y fibrosis 595086888 Active 2023 DIFFUSE RETICULO NODULAR INFILTRA [place]..... CTC 06/04.... .?? RA?..... ..DLCO NORMAL.. .02/03 Evgeny Rodriguez MD [address] [address], [place], [address], [facility], [facility] 4 12:12:48 Notes:Some problems listed i n Documents: #[id number], #[id number] could not be added to this patient's chart. Please review these documents and add these problems to the patient's chart manually as needed. Problem Notes None recorded. Procedures Surgical History Date Name Laterality Status Provider Name and Address Organization Details Recorded Time 05/08/19 25 G2211 cancelled Arnold Paulino Jr [facility], [facility] 04/04/2024 11:53:18 07/19/19 24 G2211 completed Arnold Paulino Jr [facility], [facility] 07/13/2023 10:35:16 07/05/19 24 G2211 cancelled Arnold Paulino Jr [facility], [facility] 06/29/2023 10:29:47 03/14/19 20 bone density scan completed Richard [facility] 02/18/2020 15:27:11 12/13/19 19 mammography completed Richard [facility] 02/18/2020 15:26:54 03/14/19 03 Colonoscopy completed Richard [facility] 02/18/2020 15:26:38 Imaging Results None recorded. Procedure Notes None recorded. Medical Equipment None Reported. Allergies Allergen ID Allergen Name Allergen Category Reaction Reaction Severity Criticality Documentation Date Start Date Code Code System Note Provider Name and Address Organization Details Recorded Time 7082845 latex environme nt,medica tion hives Not available Not available 06/10/2022 80606 91 RxNorm Arnold burton Jr [facility] 3 13:07:48 207810 Substance with sulfonami de structure and antibacte rial mechanism of action (substanc e) medicatio n Not available Not available Not available 02/14/2020 32300 8003 SNOMED Marsha Barragannandez [facility] 0 07:25:44 Medications Name Sig Start Date [...] Updated DateTime 3 152.4 cm 29.3 kg/m2 70896.8 6 g 0 98.1 [degF] 89 /min 93 % 93 % 162/69 mm[Hg] 138/74 mm[Hg] Naa MALAVE - [facility], [facility] 3 13:42:10 Date Recorded Body height Body mass index (BMI) Body weight Pain severity - 0-10 verbal numeric rating [Score] - Reported Oxygen saturation Oxygen saturation in Arterial blood by Pulse oximetry Heart rate Body temperature Systolic And Diastolic Provider Name and Address Organization Details Last Updated DateTime 4 152.4 cm 29.5 kg/m2 38071.4 5 g 0 96 % 96 % 81 /min 97.8 [degF] 137/70 mm[Hg] Richard Hunt [facility] Physician [facility], [facility] 4 12:16:41 Date Recorded Body height Body mass index (BMI) Body weight Pain severity - 0-10 verbal numeric rating [Score] - Reported Oxygen saturation Oxygen saturation in Arterial blood by Pulse oximetry Heart rate Body temperature Systolic And Diastolic Provider Name and Address Organization Details Last Updated DateTime 4 152.4 cm 28.7 kg/m2 23121.0 8 g 0 95 % 95 % 87 /min 97.8 [degF] 122/65 mm[Hg] Richard Hunt [facility] Physician [facility], [facility] 4 12:37:48 Date Recorded Body height Body mass index (BMI) Body weight Pain severity - 0-10 verbal numeric rating [Score] - Reported Body temperature Heart rate Oxygen saturation Oxygen saturation in Arterial blood by Pulse oximetry Systolic And Diastolic Systolic And Diastolic Provider Name and Address Organization Details Last Updated DateTime 2 152.4 cm 29.5 kg/m2 25684.4 5 g 0 97.6 [degF] 71 /min 93 % 93 % 154/75 mm[Hg] 150/76 mm[Hg] Karmen Oropeza [facility] Phys[facility], [facility] 2 11:05:44 Date Recorded Body height Body mass index (BMI) Body weight Body temperature Pain severity - 0-10 verbal numeric rating [Score] - Reported Oxygen saturation Oxygen saturation in Arterial blood by Pulse oximetry Heart rate Systolic And Diastolic Systolic And Diastolic Provider Name and Address Organization Details Last Updated DateTime 3 152.4 cm 27 kg/m2 98692.7 5 g 97.9 [degF] 0 94 % 94 % 69 /min 150/68 mm[Hg] 135/69 mm[Hg] Richard Hunt [facility], [facility] 11:37:50 Social History Question Answer Notes LastModified by Organizat ion Details LastModified Time Tobacco Smoking Status Former Smoker FRIEDA Guevara - [facility], [facility] 02/18/2020 15:25:33 Do You Have An Advance Directive? No Information not available 01/26/2021 Is Your Home Air Conditioned? Yes [email or web address] Information not available 02/07/2023 Are You Currently Sexually Active With Anyone Who Has Traveled (within The Last 12 Weeks) To A Zika-affected Area? No [email or web address] Information not available 02/07/2023 Is Blood Transfusion Acceptable In An Emergency? Yes [email or web address] Information not available 07/19/2023 How Much Tobacco Do You Chew? None [email or web address] Information not available 02/18/2020 In The 14 [...] Virus Disease Patient Without Appropriate PPE? No Information not available 02/07/2023 Do You Reside In Or Have You Traveled To An Area Where Ebola Virus Transmission Is Active? No [email or web address] Information not available 02/07/2023 Do You Have An Electrostatic Air Filter? No [email or web address] Information not available 02/07/2023 What Is The Fluoride Status Of Your Home? Unknown Information not available 02/07/2023 When Did You Quit Smoking? 16+yearssindiana lara 1976 Information not available 02/07/2023 Do You Have A Humidifier? No [email or web address] Information not available 02/07/2023 Where Do You Live? SingleLevelHouse [email or web address] Information not available 02/07/2023 Alcohol Use No Informatio n not available 01/26/2021 Do You Smoke? No [email or web address] Informat ion not available 01/26/2021 Year Quit Tobacco Use 1978 [email or web address] Information not available 02/14/2020 Marital Status Informatio n not available 02/07/2023 Do You Have A Medical Power Of Food Service Counter Clerk? No Information not available 02/07/2023 What Was The Date Of Your Most Recent Tobacco Screening? 07/19/2023 [email or web address] Information not available 07/19/2023 What Is Your Current Pack Years? 30ormorepackyears Information no t available 02/07/2023 Have You Ever Been Counseled For Unhealthy Alcohol Use? No Information not available 02/07/2023 What Is Your Relationship Status? [email or web address] Information not available 01/26/2021 Do You Use Your Seat Belt Or Car Seat Routinely? Yes Information not available 02/07/2023 At What Age Did You Start Smoking Tobacco? 21 Information not available 01/26/2021 Are There Any Smokers In Your House? No [email or web address] Information not available 02/07/2023 How Much Tobacco Do You Smoke? 1 PPD [email or web address] Information not available 02/18/2020 On What Date Was Tobacco Cessation Counseling Provided? 07/19/2023 [email or web address] Information not available 07/19/2023 How Many Years [...] is your level of alcohol consumption? Occasional [email or web address] Information not available 02/18/2020 Do you or have you ever used smokeless tobacco? Never used smokeless tobacco [email or web address] Information not available 02/18/2020 Have you been exposed to chemicals or toxins? No Information not available 02/07/2023 Do you have transportation difficulties? No [email or web address] Information not available 02/07/2023 Are you able to care for yourself independently? Yes [email or web address] Information not available 02/07/2023 Do you or have you ever used e-cigarettes or vape? Never used electronic cigarettes [email or web address] Information not available 02/18/2020 What is your exercise level? None Information not available 01/26/2021 Mental Status None recorded. Family History Relationship Description Onset Age of this Age Resolved Age Notes LastModified by Organization Details LastModified Time Mother Malignant neoplasm of pancreas [email or web address] Not available 07:26:49 Medical History Condition Response [...] conjugate PCV 13 7 completed Not Available [facility] 02/06/2023 04:44:00 pneumococcal polysaccharide PPV23 7 completed Not Available [facility] 02/06/2023 04:44:00 Influenza, split virus, trivalent, preservative 2 completed Cindy Sabetha [facility], [facility] 06/18/2022 13:54:23 Pneumococcal conjugate PCV 13 5 completed Cindy Oakley [facility] Physician [facility], [facility] 06/18/2022 13:54:23 Influenza, high-dose, trivalent, PF 4 completed Cindy Oakley [facility], [facility] 06/18/2022 13:54:23 zoster recombinant 0 completed Cindy Sabetha [facility], [facility] 06/18/2022 13:54:23 Influenza, high-dose, trivalent, PF 7 completed Cindy Oakley [facility], [facility] 06/18/2022 13:54:23 influenza, unspecified formulation 8 completed Marsha Kirkpatrick [facility], [facility] 02/14/2020 07:22:33 Influenza, high-dose, trivalent, PF 5 completed Arnold Paulino Jr [facility], [facility] 06/10/2022 13:08:16 Influenza, adjuvanted, quadrivalent, PF 0 completed [facility] 06/18/2022 13:54:23 Influenza, split virus, quadrivalent, preservative 9 completed Marsha Kirkpatrick [facility], [facility] 02/14/2020 07:22:33 zoster live 3 completed Cindy Oakley [facility], [facility] 06/18/2022 13:54:23 zoster live 3 completed Marsha quintanilla, [facility], [facility] 02/14/2020 07:22:33 Tdap 4 completed Marsha quintanilla, [facility], [facility] 02/14/2020 07:22:33 pneumococcal polysaccharide PPV23 8 completed Marsha quintanilla, [facility], [facility] 02/14/2020 07:22:33 Influenza, split virus, trivalent, preservative 2 completed Marsha Kirkpatrick null, [facility], [facility] 02/14/2020 07:22:33 Influenza, split virus, quadrivalent, preservative 6 completed Marsha quintanilla, [facility], [facility] 02/14/2020 07:22:33 influenza nasal, unspecified formulation 3 completed Marsha quintanilla, [facility], [facility] 02/14/2020 07:22:33 Influenza, split virus, quadrivalent, preservative 0 completed Marsha quintanilla, [facility], [facility] 02/14/2020 07:22:33 Influenza, high-dose, trivalent, PF 6 completed Cindy Oakley [facility], [facility] 06/18/2022 13:54:23 Novel [id number] 9 completed Cindy Oakley null, [facility], [facility] 06/18/2022 13:54:23 zoster recombinant 1 completed Cindy Oakley null, [facility], [facility] 06/18/2022 13:54:23 Influenza, adjuvanted, quadrivalent, PF 1 completed Cindy Oakley null, [facility] [facility], [facility] 06/18/2022 13:54:23 Influenza, split virus, quadrivalent, preservative 2 completed Not Available [facility] 02/06/2023 04:44:00 Influenza, split virus, quadrivalent, preservative 6 completed Not Available [facility] 02/06/2023 04:44:00 Influenza, split virus, quadrivalent, preservative 0 completed Not Available [facility] 02/06/2023 04:44:00 influenza, unspecified formulation 2 completed Arnold Paulino Jr [place], [place] - [facility], [facility] 06/10/2022 13:08:16 Novel [id number], all formulations 9 completed Not Available [facility] 02/06/2023 04:44:00 zoster live 3 completed Not Available [facility] 02/06/2023 04:44:00 zoster live 3 completed Not Available [facility] 02/06/2023 04:44:00 Past Encounters Encounter ID Performer Location Encounter Start Date Encounter Closed Date Diagnosis/Indication Diagnosis SNOMED-CT Code Diagnosis ICD10 Code Diagnosis IMO Codes Diagnosis Note [id number] Evgeny Rodriguez [place] [facility] [address] [place] [address] 02/18/2020 14:53:05 02/18/2020 15:43:34 Body mass index 30+ - obesity 745526879 E66.9 Z68.30 weight issues discussed and informatio n on weight loss given. Needs follow up on weight control as scheduled. Education handout on diets given. Exercise counseling done. Will arrange referral for dietitian, nutritioni st, Physical/o ccupationa l therapy as needed or desired. Also will consider pharmaceut ical and supplement al interventi ons Obesity 526202605 E66.9 Diet education 11589456 Z71.3 as above Chronic ob structive pulmonary disease 94271914 J44.9 Patient COPD is relatively stable Continue Stiolto and Ventolin Recheck CT chest in 1 year as well as complete PFTs Palpitations 07466772 R0 0.2 Allergic rhinitis 518844 04 J30.9 Advised Trial of Flonase 1 puff each nostril BID. May try OTC Nasacort as well. Use Gagandeep -Med Sinus Rinse (OTC) flushes 4-6 times / day Dyspnea on exertion 6084 5006 R06.09 Essential hypertension 29457970 I10 Multiple n odules of lung 714683059 R91.8 [id number] MD DENITA Jamison [facility] [address] [place] [address] 01/26/2021 09:55:49 01/26/2021 15:12:27 Body mass index 30+ - obesity 676839775 Z68.31 weight issues discussed and informatio n on weight loss given. Needs follow up on weight control as scheduled. Education handout on diets given. Exercise counseling done. Will arrange referral for dietitian, nutritioni st, Physical/o ccupationa l therapy as needed or desired. Also will consider pharmaceut ical and supplement al interventi ons Obesity 774909060 E66.9 see BMI above for details Diet education 49880562 Z71.3 as above Dyspnea on exertion 6084 5006 R06.09 Chronic problem, unstable not at goal but improving. Prescripti on drug management : Prescripti on drug management : Continue medication s as in med list. Follow up as scheduled. This is secondary to COPD as well as poor conditioni ng Chronic ob structive pulmonary disease 35597320 J44.9 chronic problem, stable with no significan [...] Ventolin inhaler Multiple n odules of lung 894516730 R91.8 chronic problem, stable with no significan t clinical changes. Needs monitoring . Prescripti on drug management : Continue medication s as in med list. Follow up as scheduled. CT of the chest shows no change in the lung nodules as compared to 1 year ago Follow up serial CT Chest for Lung Nodules based on Fleischner Society Guidelines Hypertensive disorder 38 653009 I10 Chronic condition, stable at blood pressure [...] Follow up as scheduled. Depression screening 171 994216 Z13.89 Patient scored __LOW___DE PRESSION SCREENING: PHQ-9 performed today, additional time spent for staff scoring and provider review for completion of chart. [id number] Evgeny Rodriguez MD [facility] [address] [place] [address] [place] [address] 01/05/2022 09:18:46 01/05/2022 10:28:34 Hypertensive disorder 99295147 I10 Chronic condition, stable at blood pressure [...] this time Multiple n odules of lung 940542026 R91.8 chronic problem, stable with no significan t clinical changes. Needs monitoring . Prescripti on drug management : Continue medication s as in med list. Follow up as scheduled. CT of the chest shows no change in the lung nodules as compared to 1 year ago Follow up serial CT Chest for Lung Nodules based on Fleischner Society Guidelines Allergic rhinitis 331073 04 J30.9 Chronic problem with progressio n. [...] exac erbation of chronic obstructive pulmonary disease 008126901 J44.1 Chronic problem with exacerbati on. Prescripti [...] No Antibiotic s necessary at this time [id number] Evgeny Rodriguez [place] [facility] [address] [place] [address] 01/26/2022 10:44:19 01/26/2022 11:55:05 Chronic obstructive pulmonary disease 42183875 J44.9 Chronic problem with progressio n. Prescripti [...] provided Recheck complete PFTs Hypertensive disorder 38 487952 I10 Chronic condition, stable at blood pressure [...] this time Multiple n odules of lung 520115749 R91.8 chronic problem, stable with no significan t clinical changes. Needs monitoring . Prescripti on drug management : Continue medication s as in med list. Follow up as scheduled. CT of the chest shows no change in the lung nodules as compared to 1 year ago Follow up serial CT Chest for Lung Nodules based on Fleischner Society Guidelines Allergic rhinitis 104323 04 J30.9 Chronic problem with progressio n. [...] 2 puffs BID as well Pulmonary hypertension 83355173 I27.20 Chronic problem with progressio n. Prescripti on drug management : Change medication s as noted below. Recheck as scheduled. 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 Needs monitoring . Prescripti on drug management : Continue medication s as in med list. Follow up as scheduled. Advised Ecotrin 81 mg / day with meals. May take OTC antacids in case of heartburn [id number] MD DENITA Jamison [facility] [address] [place] [address] 06/18/2022 13:35:13 06/18/2022 14:51:34 Chronic obstructive pulmonary disease 63217658 J44.9 Chronic problem with exacerbati on. Prescripti [...] Try to do it BID Allergic rhinitis 290532 04 J30.9 Chronic problem with progressio n. [...] puffs BID as well Hypertensive disorder 38 338451 I10 Chronic condition, stable at blood pressure [...] at this time Atheroscle rosis of aorta 69657501 I70.0 chronic problem, stable with no significan t clinical changes. Needs monitoring . Prescripti on drug management : Continue medication s as in med list. Follow up as scheduled. Noted on chest x-ray and CT chest in the past Advised Ecotrin 81 mg / day with meals. May take OTC antacids in case of heartburn Pulmonary hypertension 47755149 I27.20 Chronic problem with progressio n. Prescripti on drug management : Change medication s as noted below. Recheck as scheduled. Patient has mild hypertensi on on previous echocardio gram No evidence of Congestive Heart Failure at this time Rheumatoid arthritis 698 39426 M06.9 chronic problem, stable with no significan t clinical changes. Needs monitoring . Prescripti on drug management : Continue medication s as in med list. Follow up as scheduled. Patient seeing rheumatolo eugenie and currently on Plaquenil Chronic ki dney disease stage 3A 806406562 N18.31 chronic problem, stable with no significan t clinical changes. Needs monitoring . Prescripti on drug management : Continue medication s as in med list. Follow up as scheduled. 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 Needs monitoring . Prescripti on drug management : Continue medication s as in med list. Follow up as scheduled. 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 [place] [address] 02/07/2023 11:22:34 02/07/2023 12:08:43 Chronic obstructive pulmonary disease 41372664 J44.9 Chronic problem with progressio n. Prescripti [...] CT chest in 4 months Allergic rhinitis 207380 04 J30.9 Chronic problem with anuio n. [...] / Nasacort 2 puffs BID as well [id number] Evgeny Rodriguez MD [facility] [address] [place] [address] 07/08/2023 12:03:14 07/08/2023 13:05:19 Allergic rhinitis 81977107 J30.9 Chronic problem with progressio n. Prescripti [...] puffs BID as well Hypertensive disorder 38 250530 I10 Chronic condition, stable at blood pressure [...] at this time Atheroscle rosis of aorta 47890157 I70.0 chronic problem, stable with no significan t clinical changes. Needs monitoring . Prescripti on drug management : Continue medication s as in med list. Follow up as scheduled. Noted on chest x-ray and CT chest in the past Advised Ecotrin 81 mg / day with meals. May take OTC antacids in case of heartburn Chronic ki dney disease stage 3A 631913266 N18.31 chronic problem, stable with no significan t clinical changes. Needs monitoring . Prescripti on drug management : Continue medication s as in med list. Follow up as scheduled. Estimated GFR is 47 mL/min Avoid NSAIDs Continue to monitor closely Immunodefi ciency disorder 947518256 D84.81 chronic problem, stable with no significan t clinical changes. Needs monitoring . Prescripti on drug management : Continue medication s as in med list. Follow up as scheduled. 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 Prescripti on drug management : Change medication s as noted below. Recheck as scheduled. Patient has mild hypertensi on on previous echocardio gram No evidence of Congestive Heart Failure at this time Chronic ob structive pulmonary disease 81997596 J44.9 Chronic problem with exacerbati on. Prescripti [...] chest in 4 months Rheumatoid arthritis 698 30605 M06.9 chronic problem, stable with no significan t clinical changes. Needs monitoring . Prescripti on drug management : Continue medication s as in med list. Follow up as scheduled. 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 Needs monitoring Prescripti on drug management : No meds given at this time. Follow up as scheduled. Patient has patchy pulmonary fibrosis seen on imaging studies in the past There is no evidence of idiopathic pulmonary fibrosis or significan t reduction in diffusing capacity or hypoxemia Continue to monitor closely Pneumonia 136095691 J18. 9 Cor pulmonale 03842876 I 27.9 Chronic and unstable Patient has edema secondary to use of steroids Torsemide 10 mg a day for a few days and then as needed [id number] Evgeny Rodriguez MD [facility] [address] [place] [address] 07/19/2023 12:31:38 07/19/2023 12:53:00 Chronic obstructive pulmonary disease 99926757 J44.9 Chronic problem with progressio n. Prescripti [...] to do it BID Hypertensive disorder 38 200411 I10 Chronic condition, stable at blood pressure [...] 1 [employer] (MEDICARE REPLACEMENT/ ADVANTAGE - PPO) [id number] [place] A Scheehser [id number] SELF [place] A Scheehser 06/26/2021 2 [facility] (MEDICARE REPLACEMENT/ ADVANTAGE - PPO) [id number] [place] A Scheehser [id number] [place] A Scheehser 05/31/2022 1 [employer] (MEDICARE REPLACEMENT/ ADVANTAGE - PPO) [place] A Scheehser [id number] [place] A Scheehser 03/19/2024 1 [facility] (MEDICARE REPLACEMENT/ ADVANTAGE - PPO) [id number] Gilda A Scheehser [id number] [place] A Scheehser 01/20/2021 1 [place] A Scheehser [id number] [place] A Scheehser 01/01/2020 1 *SELF PAY* Al ine A Scheehser 01/20/2021 1 [facility] ([place] [id number] Gilda A Scheehser [id number] [place] A Scheehser Notes Date Note Type Note [...] MD Juve Jamison[address], [place], [address], [facility] [place] 01/26/2022 11:51:56 06/18/2022 text/html Patient was hospitalized [...] MD Juve Jamison[address], [place], [address], [facility] [place] 06/18/2022 14:53:33 02/07/2023 text/html Patient having increasing cough and shortness of breath PFTs noted CT of the chest noted Patient complains of sinus pressure, dull headache, nasal stuffiness and postnasal drip. There is cough especially at night. Mucus is usually clear. MD [address], [place], [address], [facility], [facility] 02/07/2023 13:08:19 07/08/2023 text/html Patient hospitalized for multifocal pneumonia and exacerbation of COPD He recovered well with antibiotic therapy and aggressive corticosteroids and being tapered off steroids slowly There is considerable pedal edema MD Maria [address], [place], [address], [facility], [facility] 07/08/2023 13:10:08 07/19/2023 text/html Patient experiences expiratory wheezing on and off with cough and shortness of breath primarily from changes in environmental conditions Blood Pressure seems to be under reasonable control most of the time on current regimen of medications.BP log from home reviewed with patient Evgeny Rodriguez MD [address], [place], [address], [facility], [facility] 07/19/2023 12:58:33 OBGyn Episode No OBEpisode recorded.
[2025-01-02 18:26] LABS: MANUAL DIFF FLAG NO
[2025-01-02 18:44] LABS: Hematocrit 35.6 % (37.0-47.0); Hemoglobin 11.0 g/dl (12.0-16.0); Imm Gran Abs Auto 0.01 X10*3/uL (0.00-0.03); Imm Gran Pct Auto 0.2 % (0.0-0.4); Lymphocytes Absolute Auto 0.9 X10*3/uL (1.2-4.9); Mean Corpuscular HGB Conc 30.9 g/dl (31.0-35.0); Mean Corpuscular Hemoglobin 28.7 pg (27.0-33.0); Mean Corpuscular Volume 93.0 fL (80.0-98.0); NRBC Abs Auto 0.000 X10*3/uL (0.0-0.012); NRBC Pct Auto 0.0 /100WBC (0.0-0.2); Platelet Count 226 X10*3/uL (160-400); Red Blood Count 3.83 X10*6/uL (4.20-5.50); White Blood Count 5.2 X10*3/uL (4.8-10.8)
[2025-01-02 19:15] LABS: Estimated Glomerular Filt Rate 42
== END 2025-01-02 10:11 | disposition home or self-care (01) ==
LOC: HO.HKASLDS 10:10
PROVIDERS: PCP Internal Medicine; Visit Provider Internal Medicine Rheumatology
DX: M25.572 Pain in left ankle and joints of left foot (principal); M05.79 Rheumatoid arthritis with rheumatoid factor of multiple sites without organ or systems involvement; Z79.899 Other long term (current) drug therapy; Z79.52 Long term (current) use of systemic steroids; Z51.81 Encounter for therapeutic drug level monitoring
CPT/HCPCS: 36415; 73610; 82565; 85025; 85652; 86140; 99212

== ENCOUNTER → 2025-01-02 14:15 | Outpatient (BNV) | payer MEDICARE, SELFPAY | PROVIDERS: PCP Internal Medicine; Visit Provider Radiology Diagnostic Radiology | DX: M77.51 Other enthesopathy of right foot and ankle (principal); R60.0 Localized edema | CPT/HCPCS: 73610 ==